=== PATIENT | male | born 1935 | race Caucasian/White ===

== ENCOUNTER 2016-11-01 13:18 | Emergency (ER) | payer MEDICARE, BC ==
[2016-11-01] MEDS ORDERED: SODIUM CHLORIDE 0.9% 1,000 ML IV STA (13:51)
[2016-11-01] MEDS ORDERED: MORPHINE SULFATE 4 MG/ML SYRINGE IVP STA (13:51)
[2016-11-01] MEDS ORDERED: SODIUM CHLORIDE 0.9% 500 ML IV STA (13:51)
[2016-11-01] MEDS ORDERED: IPRATROPIUM 0.5 MG/2.5 ML NEBU INHALATION STA (13:51)
[2016-11-01] MEDS ORDERED: ALBUTEROL NEBULIZED 2.5 MG/3 ML INHALATION STA (13:51)
[2016-11-01] MEDS ORDERED: LEVOFLOXACIN 750MG-D5W PMX 750 MG in DEXTROSE/WATER 1 150ML.BAG IVPB STA (13:51)
--- NOTE | 2016-11-01 13:58 | ED ---
General Adult HPI - General Chief complaint: Upper Respiratory Infection Stated complaint: cough/congestion Time Seen by Provider: 11/01/16 13:27 Source: patient, RN notes reviewed, old records reviewed Mode of arrival: ambulatory Limitations: no limitations - History of Present Illness Initial comments: This is an 81-year-old male ER for evaluation of cough and congestion runny nose , coughing up mucus. 3-4 days, episodic fevers. No chest pain. Patient has extensive medical history including diabetes. No recent hospitalizations no travel history no sick contacts. - Related Data Home Medications Medication Instructions Recorded Confirmed Ascorbic Acid [Vitamin C] 1,000 mg PO DAILY 04/03/15 11/01/16 Aspirin EC [Ecotrin] 81 mg PO DAILY 04/03/15 11/01/16 Atorvastatin [Lipitor] 10 mg PO HS 04/03/15 11/01/16 Atropine Ophth Soln 1% 5Ml [Isopto 2 drops RIGHT EYE DAILY 04/03/15 11/01/16 Atropine 1% 5Ml] Fenofibrate Nanocrystallized 145 mg PO DAILY 04/03/15 11/01/16 [Tricor] Ferrous Sulfate [Feosol] 325 mg PO DAILY 04/03/15 11/01/16 Fish Oil/Dha/Epa [Fish Oil 1,200 1 cap PO DAILY 04/03/15 11/01/16 mg Fish Oil] Lisinopril-Hctz 20-25 mg 1 tab PO DAILY 04/03/15 11/01/16 [Zestoretic 20-25] Metoprolol Tartrate [Lopressor] 50 mg PO DAILY 04/03/15 11/01/16 Potassium Chloride ER [K-Dur 10] 10 meq PO DAILY 04/03/15 11/01/16 Propylene Glycol/Peg 400/Pf 1 drop BOTH EYES DAILY PRN 04/03/15 11/01/16 [Systane 0.3-0.4% Eye Drops] Temazepam [Restoril] 15 mg PO HS PRN 04/03/15 11/01/16 metFORMIN HCL [metFORMIN HCL] 500 mg PO DAILY 04/03/15 11/01/16 prednisoLONE ACETATE 1% OPHTH 1 drops RIGHT EYE DAILY 04/03/15 11/01/16 [Pred Forte 1%] sitaGLIPtin [Januvia] 50 mg PO DAILY 04/03/15 11/01/16 Cyanocobalamin (Vitamin B-12) 2,000 mcg PO DAILY 11/01/16 11/01/16 [Vitamin B-12] Docusate [Colace] 100 mg PO DAILY PRN 11/01/16 11/01/16 Magnesium Chelated Zinc 1 tab PO DAILY 11/01/16 11/01/16 Omeprazole [PriLOSEC] 20 mg PO DAILY PRN 11/01/16 11/01/16 Allergies Allergy/AdvReac Type Severity Reaction Status Date / Time fluticasone [From Flonase] AdvReac FAINTING Verified 11/01/16 13:54 Review of Systems ROS Statement: Those systems with pertinent positive or pertinent negative responses have been documented in the HPI. ROS Other: All systems not noted in ROS Statement are negative. Past Medical History Past Medical History: Coronary Artery Disease (CAD), Hyperlipidemia, Hypertension Additional Past Medical History / Comment(s): colon ca, cataracts History of Any Multi-Drug Resistant Organisms: None Reported Past Surgical History: Bowel Resection, Coronary Bypass/CABG Additional Past Surgical History / Comment(s): colon ca Past Psychological History: No Psychological Hx Reported Smoking Status: Never smoker Past Alcohol Use History: None Reported Past Drug Use History: None Reported General Exam Limitations: no limitations General appearance: alert, in no apparent distress Head exam: Present: atraumatic, normocephalic, normal inspection Eye exam: Present: normal appearance, PERRL, EOMI. Absent: scleral icterus, conjunctival injection, periorbital swelling ENT exam: Present: normal exam, mucous membranes moist Neck exam: Present: normal inspection. Absent: tenderness, meningismus, lymphadenopathy Respiratory exam: Present: normal lung sounds bilaterally. Absent: respiratory distress, wheezes, rales, rhonchi, stridor Cardiovascular Exam: Present: regular rate, normal rhythm, normal heart sounds. Absent: systolic murmur, diastolic murmur, rubs, gallop, clicks GI/Abdominal exam: Present: soft, normal bowel sounds. Absent: distended, tenderness, guarding, rebound, rigid Extremities exam: Present: normal inspection, full ROM, normal capillary refill. Absent: tenderness, pedal edema, joint swelling, calf tenderness Back exam: Present: normal inspection Neurological exam: Present: alert, oriented X3, CN II-XII intact Psychiatric exam: Present: normal affect, normal mood Skin exam: Present: warm, dry, intact, normal color. Absent: rash Course Vital Signs 11/01/16 11/01/16 11/01/16 13:20 14:16 14:45 Temperature 97.7 F Pulse Rate 64 70 75 Respiratory 18 20 Rate Blood Pressure 152/84 156/85 O2 Sat by Pulse 95 94 L Oximetry - Reevaluation(s) Reevaluation #1: 11/01/16 15:19 No respiratory distress, patient states he is feeling much better. Treatment, would like to go home EKG Findings - EKG Comments: EKG Findings:: EKG shows normal sinus rhythm rate of 63, AL 256 QRS 108, QTC 421 Medical Decision Making - Medical Decision Making 81 LDF for evaluation of cough, consistent cough for 2 days episodic fever. Patient with positive bronchitis to pneumonia. Patient be treated appropriately for walking pneumonia, discharged - Lab Data Result diagrams: 11/01/16 14:20 11/01/16 14:20 Lab Results 11/01/16 11/01/16 11/01/16 Range/Units 14:20 14:20 14:20 WBC 7.5 (3.8-10.6) k/uL RBC 4.16 L (4.30-5.90) m/uL Hgb 13.3 (13.0-17.5) gm/dL Hct 40.8 (39.0-53.0) % MCV 98.1 (80.0-100.0) fL MCH 32.0 (25.0-35.0) pg MCHC 32.6 (31.0-37.0) g/dL RDW 14.3 (11.5-15.5) % Plt Count 202 (150-450) k/uL Neutrophils % 71 % Lymphocytes % 13 % Monocytes % 7 % Eosinophils % 8 % Basophils % 1 % Neutrophils # 5.4 (1.3-7.7) k/uL Lymphocytes # 0.9 L (1.0-4.8) k/uL Monocytes # 0.5 (0-1.0) k/uL Eosinophils # 0.6 (0-0.7) k/uL Basophils # 0.1 (0-0.2) k/uL PT (9.0-12.0) sec INR (<1.1) APTT (22.0-30.0) sec Sodium 143 (137-145) mmol/L Potassium 4.6 (3.5-5.1) mmol/L Chloride 107 (98-107) mmol/L Carbon Dioxide 27 (22-30) mmol/L Anion Gap 9 mmol/L BUN 16 (9-20) mg/dL Creatinine 1.15 (0.66-1.25) mg/dL Est GFR (MDRD) Af Amer >60 (>60 ml/min/1.73 sqM) Est GFR (MDRD) Non-Af >60 (>60 ml/min/1.73 sqM) Glucose 94 (74-99) mg/dL Calcium 9.8 (8.4-10.2) mg/dL Magnesium 1.7 (1.6-2.3) mg/dL Total Bilirubin 0.6 (0.2-1.3) mg/dL AST 25 (17-59) U/L ALT 30 (21-72) U/L Alkaline Phosphatase 69 (38-126) U/L NT-Pro-B Natriuret Pep 151 pg/mL Total Protein 7.0 (6.3-8.2) g/dL Albumin 4.0 (3.5-5.0) g/dL 11/01/16 Range/Units 14:20 WBC (3.8-10.6) k/uL RBC (4.30-5.90) m/uL Hgb (13.0-17.5) gm/dL Hct (39.0-53.0) % MCV (80.0-100.0) fL MCH (25.0-35.0) pg MCHC (31.0-37.0) g/dL RDW (11.5-15.5) % Plt Count (150-450) k/uL Neutrophils % % Lymphocytes % % Monocytes % % Eosinophils % % Basophils % % Neutrophils # (1.3-7.7) k/uL Lymphocytes # (1.0-4.8) k/uL Monocytes # (0-1.0) k/uL Eosinophils # (0-0.7) k/uL Basophils # (0-0.2) k/uL PT 10.3 (9.0-12.0) sec INR 1.0 (<1.1) APTT 22.9 (22.0-30.0) sec Sodium (137-145) mmol/L Potassium (3.5-5.1) mmol/L Chloride (98-107) mmol/L Carbon Dioxide (22-30) mmol/L Anion Gap mmol/L BUN (9-20) mg/dL Creatinine (0.66-1.25) mg/dL Est GFR (MDRD) Af Amer (>60 ml/min/1.73 sqM) Est GFR (MDRD) Non-Af (>60 ml/min/1.73 sqM) Glucose (74-99) mg/dL Calcium (8.4-10.2) mg/dL Magnesium (1.6-2.3) mg/dL Total Bilirubin (0.2-1.3) mg/dL AST (17-59) U/L ALT (21-72) U/L Alkaline Phosphatase (38-126) U/L NT-Pro-B Natriuret Pep pg/mL Total Protein (6.3-8.2) g/dL Albumin (3.5-5.0) g/dL - Radiology Data Radiology results: report reviewed (Chest x-ray shows no acute pneumonia), image reviewed Disposition Clinical Impression: Upper respiratory infection, Bronchitis, Acute bronchitis Disposition: HOME SELF-CARE Condition: Good Instructions: Acute Bronchitis (ED) Referrals: Akbar Grace MD [Primary Care Provider] - 1-2 days
[2016-11-01 14:41] LABS: Basophils # (A) 0.1 k/uL (0-0.2); Basophils % (A) 1 %; CH 32.3; CHCM 33.1; Eosinophils # (A) 0.6 k/uL (0-0.7); Eosinophils % (A) 8 %; HCT 40.8 % (39.0-53.0); HDW 2.77; HGB 13.3 gm/dL (13.0-17.5); Luc # (Auto) 0.12; Luc % (Auto) 2; Lymphocytes # (A) 0.9 k/uL (1.0-4.8); Lymphocytes % (A) 13 %; MCHC 32.6 g/dL (31.0-37.0); MCV 98.1 fL (80.0-100.0); Monocytes # (A) 0.5 k/uL (0-1.0); Monocytes % (A) 7 %; Neutrophils # (A) 5.4 k/uL (1.3-7.7); Neutrophils % (A) 71 %; RBC 4.16 m/uL (4.30-5.90); RDW 14.3 % (11.5-15.5); WBC 7.5 k/uL (3.8-10.6)
[2016-11-01 14:53] LABS: ALT 30 U/L (21-72); AST 25 U/L (17-59); Alkaline Phosphatase 69 U/L (38-126); Anion Gap 9 mmol/L; Blood Urea Nitrogen 16 mg/dL (9-20); Calcium 9.8 mg/dL (8.4-10.2); Carbon Dioxide 27 mmol/L (22-30); Chloride 107 mmol/L (98-107); Glucose 94 mg/dL (74-99); Magnesium 1.7 mg/dL (1.6-2.3); Non-African American GFR(MDRD) >60 (>60 ml/min/1.73 sqM); Potassium 4.6 mmol/L (3.5-5.1); Sodium 143 mmol/L (137-145); Total Bilirubin 0.6 mg/dL (0.2-1.3)
[2016-11-01 14:55] LABS: Partial Thromboplastin Time 22.9 sec (22.0-30.0); Prothrombin Time 10.3 sec (9.0-12.0)
--- NOTE | 2016-11-01 14:59 | XR ---
EXAMINATION TYPE: XR chest 2V DATE OF EXAM: 11/01/2016 2:38 PM COMPARISON: 04/03/2015 HISTORY: Productive cough TECHNIQUE: Frontal and lateral views of the chest are obtained. FINDINGS: There is no heart failure nor confluent pneumonic infiltrate. Thoracic aorta is atheromato us. There is slight coarsening of interstitial markings. There is no pleural effusion. There are ster nal wires. There are chest leads. Bony thorax is intact. IMPRESSION: Minimal pulmonary fibrotic changes. No acute lung disease. No change.
[2016-11-01 15:05] LABS: Creatine Kinase 82 U/L (55-170)
[2016-11-01 15:20] LABS: Creatine Kinase MB 1.3 ng/mL (0.0-2.4); Troponin I <0.012 ng/mL (0.000-0.034)
[2016-11-01 16:14] VITALS: BP 142/67; PULSE 60; RESP 18; TEMP 97.1
== END 2016-11-01 16:13 | disposition home or self-care (01) ==
LOC: EC 13:18
DX: J06.9 Acute upper respiratory infection, unspecified (principal); J20.9 Acute bronchitis, unspecified; I10 Essential (primary) hypertension; E78.5 Hyperlipidemia, unspecified; Z85.038 Personal history of other malignant neoplasm of large intestine; Z88.8 Allergy status to other drugs, medicaments and biological substances; Z79.82 Long term (current) use of aspirin; Z79.899 Other long term (current) drug therapy
CPT/HCPCS: 99284; 96365; 36415; 94644; 93005; 83880; 80053; 82550; 82553; 83735; 84484; 85025; 85610; 85730; 87040; 71020; J1956

== ENCOUNTER 2018-01-29 07:58 | Observation (INO) | payer MEDICARE, BC ==
[2018-01-29] MEDS ORDERED: ASPIRIN 81 MG PO STA (08:12)
[2018-01-29] MEDS ORDERED: NITROGLYCERIN OINT 1 INCH/GM PACKET TOPICAL STA (08:12)
--- NOTE | 2018-01-29 08:18 | ED ---
General Adult HPI - General Chief complaint: Chest Pain Stated complaint: chest pain Time Seen by Provider: 01/29/18 08:00 Source: patient, RN notes reviewed Mode of arrival: wheelchair Limitations: no limitations - History of Present Illness Initial comments: This is an 82-year-old male who has a past medical history significant for bypass surgery. Patient also has diabetes hypertension high cholesterol. Patient states she's been having intermittent chest pain over the last 3 days in the center of his chest. Patient states he thought was heartburn but since it hasn't gone away he decided come to the hospital. Patient states the pain lasted between 10 and 20 minutes when it comes. Patient states he has been more short of breath lately but he has not associated with the chest pain. Patient denies any diaphoresis. Patient denies any radiation of the pain. Patient denies any nausea or vomiting. Patient denies any recent fever chills or cough. Patient denies headache patient denies numbness weakness. Patient denies any lightheadedness dizziness or near syncopal episode. Patient denies any recent injury or trauma. Patient denies any back pain. The legs or calf tenderness. Currently patient is chest pain-free. - Related Data Home Medications Medication Instructions Recorded Confirmed Ascorbic Acid [Vitamin C] 1,000 mg PO DAILY 04/03/15 05/23/17 Aspirin EC [Ecotrin] 81 mg PO DAILY 04/03/15 05/23/17 Atorvastatin [Lipitor] 10 mg PO HS 04/03/15 05/23/17 Atropine Ophth Soln 1% 5Ml [Isopto 2 drops RIGHT EYE DAILY 04/03/15 05/23/17 Atropine 1% 5Ml] Fenofibrate Nanocrystallized 145 mg PO DAILY 04/03/15 05/23/17 [Tricor] Ferrous Sulfate [Feosol] 325 mg PO Q48H 04/03/15 05/23/17 Fish Oil/Dha/Epa [Fish Oil 1,200 1 cap PO DAILY 04/03/15 05/23/17 mg Fish Oil] Lisinopril-Hctz 20-25 mg 1 tab PO DAILY 04/03/15 05/23/17 [Zestoretic 20-25] Metoprolol Tartrate [Lopressor] 50 mg PO DAILY 04/03/15 05/23/17 Potassium Chloride ER [K-Dur 10] 10 meq PO DAILY 04/03/15 05/23/17 Propylene Glycol/Peg 400/Pf 1 drop BOTH EYES DAILY PRN 04/03/15 05/23/17 [Systane 0.3-0.4% Eye Drops] Temazepam [Restoril] 15 mg PO HS PRN 04/03/15 05/23/17 metFORMIN HCL 500 mg PO AC-SUPPER 04/03/15 05/23/17 prednisoLONE ACETATE 1% OPHTH 1 drops RIGHT EYE DAILY 04/03/15 05/23/17 [Pred Forte 1%] sitaGLIPtin [Januvia] 50 mg PO DAILY 04/03/15 05/23/17 Docusate [Colace] 100 mg PO DAILY PRN 11/01/16 05/23/17 Magnesium Chelated Zinc 1 tab PO DAILY 11/01/16 05/23/17 Omeprazole [PriLOSEC] 20 mg PO DAILY PRN 11/01/16 05/23/17 Cyanocobalamin (Vitamin B-12) 2,500 mcg PO DAILY 05/23/17 05/23/17 [Vitamin B12] Allergies Allergy/AdvReac Type Severity Reaction Status Date / Time fluticasone [From Flonase] AdvReac FAINTING Verified 01/29/18 08:03 Review of Systems ROS Statement: Those systems with pertinent positive or pertinent negative responses have been documented in the HPI. ROS Other: All systems not noted in ROS Statement are negative. Past Medical History Past Medical History: Coronary Artery Disease (CAD), Hyperlipidemia, Hypertension Additional Past Medical History / Comment(s): colon ca, cataracts History of Any Multi-Drug Resistant Organisms: None Reported Past Surgical History: Bowel Resection, Coronary Bypass/CABG Additional Past Surgical History / Comment(s): colon ca Past Psychological History: No Psychological Hx Reported Smoking Status: Never smoker Past Alcohol Use History: None Reported Past Drug Use History: None Reported General Exam - General Exam Comments Initial Comments: GENERAL: Patient is well-developed and well-nourished. Patient is nontoxic and well- hydrated and is in no acute distress. ENT: Neck is soft and supple. No significant lymphadenopathy is noted. Oropharynx is clear. Moist mucous membranes. Neck has full range of motion without eliciting any pain. EYES: The sclera were anicteric and conjunctiva were pink and moist. Extraocular movements were intact and pupils were equal round and reactive to light. Eyelids were unremarkable. PULMONARY: Unlabored respirations. Good breath sounds bilaterally. No audible rales rhonchi or wheezing was noted. CARDIOVASCULAR: There is a regular rate and rhythm without any murmurs gallops or rubs. ABDOMEN: Soft and nontender with normal bowel sounds. No palpable organomegaly was noted. There is no palpable pulsatile mass. SKIN: Skin is clear with no lesions or rashes and otherwise unremarkable. NEUROLOGIC: Patient is alert and oriented x3. Cranial nerves II through XII are grossly intact. Motor and sensory are also intact. Normal speech, volume and content. Symmetrical smile. MUSCULOSKELETAL: Normal extremities with adequate strength and full range of motion. No lower extremity swelling or edema. No calf tenderness. LYMPHATICS: No significant lymphadenopathy is noted PSYCHIATRIC: Normal psychiatric evaluation. Normal interpersonal interactions appears functionally intact in deals appropriately with others. No signs of depression. No signs of anxiety. Limitations: no limitations Course Vital Signs 01/29/18 01/29/18 08:01 09:10 Temperature 98.1 F Pulse Rate 78 67 Respiratory 18 16 Rate Blood Pressure 177/83 168/79 O2 Sat by Pulse 96 96 Oximetry Medical Decision Making - Medical Decision Making EKG shows normal sinus rhythm at 74 bpm OR interval 190 QRS is 96 QT interval 36 QTC is 428. Patient's EKG shows no ST segment elevation or depression or T wave abnormalities are noted. Chest x-ray shows no acute abnormality. I started the patient on heparin because of his history and his past history. I spoke with Dr. Merlos he agreed to admit the patient admitted the patient wrote admitting orders I continued heparin and aspirin and Nitropaste on the floor. I consult to cardiology. - Lab Data Result diagrams: 01/29/18 08:14 01/29/18 08:14 Lab Results 01/29/18 01/29/18 01/29/18 Range/Units 08:14 08:14 08:14 WBC 7.7 (3.8-10.6) k/uL RBC 4.11 L (4.30-5.90) m/uL Hgb 12.9 L (13.0-17.5) gm/dL Hct 39.1 (39.0-53.0) % MCV 95.2 (80.0-100.0) fL MCH 31.3 (25.0-35.0) pg MCHC 32.9 (31.0-37.0) g/dL RDW 15.0 (11.5-15.5) % Plt Count 217 (150-450) k/uL Neutrophils % 71 % Lymphocytes % 11 % Monocytes % 8 % Eosinophils % 6 % Basophils % 1 % Neutrophils # 5.5 (1.3-7.7) k/uL Lymphocytes # 0.9 L (1.0-4.8) k/uL Monocytes # 0.6 (0-1.0) k/uL Eosinophils # 0.5 (0-0.7) k/uL Basophils # 0.0 (0-0.2) k/uL PT (9.0-12.0) sec INR (<1.2) APTT (22.0-30.0) sec Sodium 141 (137-145) mmol/L Potassium 4.8 (3.5-5.1) mmol/L Chloride 108 H (98-107) mmol/L Carbon Dioxide 22 (22-30) mmol/L Anion Gap 11 mmol/L BUN 31 H (9-20) mg/dL Creatinine 1.53 H (0.66-1.25) mg/dL Est GFR (CKD-EPI)AfAm 48 (>60 ml/min/1.73 sqM) Est GFR (CKD-EPI)NonAf 42 (>60 ml/min/1.73 sqM) Glucose 129 H (74-99) mg/dL Calcium 9.4 (8.4-10.2) mg/dL Magnesium 1.7 (1.6-2.3) mg/dL Total Bilirubin 0.3 (0.2-1.3) mg/dL AST 24 (17-59) U/L ALT 31 (21-72) U/L Alkaline Phosphatase 91 (38-126) U/L Total Creatine Kinase 82 (55-170) U/L CK-MB (CK-2) 1.0 (0.0-2.4) ng/mL CK-MB (CK-2) Rel Index 1.2 Troponin I <0.012 (0.000-0.034) ng/mL Total Protein 6.9 (6.3-8.2) g/dL Albumin 4.0 (3.5-5.0) g/dL 01/29/18 Range/Units 08:14 WBC (3.8-10.6) k/uL RBC (4.30-5.90) m/uL Hgb (13.0-17.5) gm/dL Hct (39.0-53.0) % MCV (80.0-100.0) fL MCH (25.0-35.0) pg MCHC (31.0-37.0) g/dL RDW (11.5-15.5) % Plt Count (150-450) k/uL Neutrophils % % Lymphocytes % % Monocytes % % Eosinophils % % Basophils % % Neutrophils # (1.3-7.7) k/uL Lymphocytes # (1.0-4.8) k/uL Monocytes # (0-1.0) k/uL Eosinophils # (0-0.7) k/uL Basophils # (0-0.2) k/uL PT 9.7 (9.0-12.0) sec INR 1.0 (<1.2) APTT 23.2 (22.0-30.0) sec Sodium (137-145) mmol/L Potassium (3.5-5.1) mmol/L Chloride (98-107) mmol/L Carbon Dioxide (22-30) mmol/L Anion Gap mmol/L BUN (9-20) mg/dL Creatinine (0.66-1.25) mg/dL Est GFR (CKD-EPI)AfAm (>60 ml/min/1.73 sqM) Est GFR (CKD-EPI)NonAf (>60 ml/min/1.73 sqM) Glucose (74-99) mg/dL Calcium (8.4-10.2) mg/dL Magnesium (1.6-2.3) mg/dL Total Bilirubin (0.2-1.3) mg/dL AST (17-59) U/L ALT (21-72) U/L Alkaline Phosphatase (38-126) U/L Total Creatine Kinase (55-170) U/L CK-MB (CK-2) (0.0-2.4) ng/mL CK-MB (CK-2) Rel Index Troponin I (0.000-0.034) ng/mL Total Protein (6.3-8.2) g/dL Albumin (3.5-5.0) g/dL Critical Care Time Critical Care Time: Yes Total Critical Care Time: 35 Disposition Clinical Impression: Unstable angina pectoris Disposition: ADMITTED IP TO THIS HOSP Referrals: Tyson Rascon DO [Primary Care Provider] - 1-2 days Time of Disposition: 09:55
[2018-01-29 08:25] LABS: Basophils % (A) 1 %; Eosinophils # (A) 0.5 k/uL (0-0.7); Eosinophils % (A) 6 %; HCT 39.1 % (39.0-53.0); HGB 12.9 gm/dL (13.0-17.5); Lymphocytes # (A) 0.9 k/uL (1.0-4.8); Lymphocytes % (A) 11 %; MCH 31.3 pg (25.0-35.0); MCHC 32.9 g/dL (31.0-37.0); MCV 95.2 fL (80.0-100.0); Mean Platelet Volume 6.9; Monocytes # (A) 0.6 k/uL (0-1.0); Monocytes % (A) 8 %; Neutrophils # (A) 5.5 k/uL (1.3-7.7); Neutrophils % (A) 71 %; Platelet Count 217 k/uL (150-450); RBC 4.11 m/uL (4.30-5.90); WBC 7.7 k/uL (3.8-10.6)
[2018-01-29 08:35] LABS: Partial Thromboplastin Time 23.2 sec (22.0-30.0); Prothrombin Time 9.7 sec (9.0-12.0)
[2018-01-29 08:38] LABS: Calcium 9.4 mg/dL (8.4-10.2); Magnesium 1.7 mg/dL (1.6-2.3); Potassium 4.8 mmol/L (3.5-5.1); Total Bilirubin 0.3 mg/dL (0.2-1.3); Total Protein 6.9 g/dL (6.3-8.2)
[2018-01-29 09:02] LABS: Creatine Kinase 82 U/L (55-170)
[2018-01-29 09:15] LABS: Troponin I <0.012 ng/mL (0.000-0.034)
--- NOTE | 2018-01-29 09:29 | XR ---
EXAMINATION TYPE: XR chest 2V DATE OF EXAM: 01/29/2018 COMPARISON: 05/23/2017 HISTORY: 82-year-old male with chest pain TECHNIQUE: Frontal and lateral views FINDINGS: Heart upper limits of normal in size. Mild elongation thoracic aorta is unchanged. Median sternotomy wires are present with post-CABG clips in the mediastinum. Chronic pleural-based thickening lateral r ight hemithorax probably scarring. Diffuse interstitial prominence is unchanged. Hazy density at the cardiac apex compatible with epicardial fat pad. Increased focal bibasilar areas of opacity with a so mewhat strandy appearance. No significant pleural effusion seen on the lateral view. IMPRESSION: Chronic changes but with increased focal bibasilar areas of atelectasis or infiltrates with the forme r being favored. Clinically correlate.
[2018-01-29] MEDS ORDERED: HEPARIN SODIUM,PORCINE 5,000 UNIT/ML 1 ML VIAL IV ONE (09:54)
[2018-01-29] MEDS ORDERED: NITROGLYCERIN SL TABS 0.4 MG TAB SUBLINGUAL PRN (09:55)
[2018-01-29] MEDS ORDERED: HEPARIN SOD,PORK IN 0.45% NACL 25,000 UNIT in 0.45% NACL 1 500ML.BAG IV SCH (10:00)
[2018-01-29 12:24] VITALS: BMI 30.7
[2018-01-29 12:26] LABS: Glucose,Whole Blood 117 mg/dL (75-99)
[2018-01-29] MEDS ORDERED: DOCUSATE 100 MG CAP PO PRN (14:16)
[2018-01-29] MEDS ORDERED: ARTIFICIAL TEARS-HYPROMELLOSE DROPS 15 ML BTL BOTH EYES PRN (14:16)
[2018-01-29] MEDS ORDERED: NON-FORMULARY DRUG (Omeprazole 20 MG) PO PRN (14:16)
[2018-01-29] MEDS ORDERED: TEMAZEPAM 15 MG CAP PO PRN (14:16)
[2018-01-29] MEDS ORDERED: ALPRAZolam 0.25 MG TAB PO PRN (14:18)
[2018-01-29] MEDS ORDERED: ACETAMINOPHEN TAB 500 MG TAB PO PRN (14:18)
[2018-01-29] MEDS ORDERED: FERROUS SULFATE 325 MG TAB PO SCH (14:30)
[2018-01-29 15:45] LABS: Creatine Kinase 64 U/L (55-170)
[2018-01-29 15:58] LABS: Troponin I <0.012 ng/mL (0.000-0.034)
[2018-01-29] MEDS: NITROGLYCERIN OINT 1 INCH/GM PACKET TOPICAL SCH ×2 (16:29→17:59)
[2018-01-29] MEDS ORDERED: HEPARIN SODIUM,PORCINE 5,000 UNIT/ML 1 ML VIAL IV PRN (16:41)
--- NOTE | 2018-01-29 17:21 | HP ---
HISTORY AND PHYSICAL DATE OF SERVICE: 01/29/2018 CHIEF COMPLAINT: Chest pain. HISTORY OF PRESENT ILLNESS: I am covering for Dr. Rascon. This 82-year-old gentleman with a past medical history of multiple medical problems, including CAD, diabetes mellitus, hypertension, hyperlipidemia, history of colon cancer, being followed by Dr. Rascon in the outpatient setting, was complaining of intermittent chest pain for the last 3 days. The patient also described the pain as heartburn felt in the midepigastrium and the last episodes lasted between 10-20 minutes and because of some shortness of breath and other associated symptoms, patient came to [facility], admitted for further evaluation and treatment. There is no history of any shortness of breath. No history of radiation of pain elsewhere. The initial EKG showed no acute abnormality. The troponins were negative and cardiology evaluation has been sought. The patient is started on protocol. There is no history of any fever, rigors. No history of headache, loss of consciousness, seizures. PAST MEDICAL HISTORY: History of CAD, CABG, history of diabetes mellitus type 2, hypertension, hyperlipidemia, history of colon cancer. MEDICATIONS PRIOR TO ADMISSION: Include home medications are: 1. Januvia 50 mg p.o. daily. 2. Prednisone 1 drop right eye daily. 3. Metformin 500 mg a.c. supper. 4. Norvasc 5 mg daily. 5. Restoril 50 mg q.h.s. p.r.n. 6. Propylene glycol 1 drop both eyes. 7. K-Dur 10 mEq p.o. daily. 8. Prilosec 20 mg daily. 9. Lopressor 50 mg p.o. daily. 10.Magnesium 1 tablet p.o. daily. 11.Zestoretic 10/25 p.o. daily. 12.Fish oil 360 mg p.o. daily. 13.Iron sulfate 320 mg p.o. q.48 hours. 14.Tricor 145 mg p.o. daily. 15.Colace 100 mg daily p.r.n. 16.Vitamin B12 2.5 mcg p.o. daily. 17.Isopto 2 drops daily. 18.Lipitor 10 mg q.h.s. 19.Ecotrin 81 mg daily. 20.Vitamin C 1000 mg p.o. daily. ALLERGIES: FLONASE. FAMILY HISTORY: No history of heart disease, strokes in the family. SOCIAL HISTORY: No history of smoking. No history of alcohol intake. REVIEW OF SYSTEMS: ENT: No diminished hearing, diminished vision. CARDIOVASCULAR: No angina, palpitations. RESPIRATORY: No cough or hemoptysis. GI: No nausea or vomiting. : No dysuria. NERVOUS: No numbness or weakness. ALLERGY/IMMUNOLOGY: No asthma or hay fever. MUSCULOSKELETAL: As mentioned earlier. HEMATOLOGY/ONCOLOGY: No history of anemia. ENDOCRINE: No history of hypothyroidism. CONSTITUTIONAL: As mentioned earlier. DERMATOLOGY: Negative. RHEUMATOLOGY: Negative. PSYCHIATRY: As mentioned earlier. PHYSICAL EXAMINATION: Alert and oriented x3. Pulse is 61, blood pressure 162/81, respirations 16, temperature 97.4, pulse ox 94% on room air. HEENT: Conjunctivae normal. Oral mucosa moist. NECK: No jugular venous distention. No carotid bruits. No lymph node enlargement. CARDIOVASCULAR: S1, S2 muffled. RESPIRATORY: Breath sounds diminished in the bases. A few scattered rhonchi and crackles. ABDOMEN: Soft, nontender. No mass palpable. LEGS: No edema. No swelling. NERVOUS SYSTEM: Higher functions as mentioned earlier. Moves all 4 limbs. No focal motor or sensory deficits. LYMPHATIC: No lymphadenopathy in neck or axillae. SKIN: No ulcer, rash or bleeding. LABS: WBC 1.6, hemoglobin is 12.9 and creatinine is 1.53. ASSESSMENT: 1. Chest pain, possible unstable angina. 2. Increased creatinine with possibly chronic kidney disease stage 3. 3. Coronary artery disease, coronary artery bypass graft. 4. Hypertension. 5. Hyperlipidemia. 6. Diabetes mellitus type 2. 7. Colon cancer. 8. History of bowel resection. RECOMMENDATION AND DISCUSSION: In this 82-year-old gentleman who presented with multiple complex medical issues , we will monitor the patient closely. Symptomatic treatment and Cardiology consultation. Otherwise, we will continue to monitor. The EKG showed diffuse ST-T changes. Will rule out myocardial infarction. Repeat labs will be ordered. Guarded prognosis because of multiple complex medical issues. Further recommendations to follow. A copy of this dictation will be forwarded to Dr. Rascon, who is the primary physician. MMODL / IJN: [id number] / MTDD
[2018-01-29] MEDS ORDERED: metFORMIN 500 MG TAB PO SCH (17:30)
[2018-01-29 17:42] LABS: Glucose,Whole Blood 107 mg/dL (75-99)
[2018-01-29] MEDS: INSULIN ASPART 100 UNIT/ML 1 ML 10 ML VIAL SQ SCH ×2 (17:51→21:06)
[2018-01-29 19:24] VITALS: RESP 18
[2018-01-29] MEDS ORDERED: ATORVASTATIN 10 MG TAB PO SCH (21:00)
[2018-01-29] MEDS ORDERED: MELATONIN 3 MG TABLET PO SCH (21:00)
[2018-01-29 21:01] LABS: Glucose,Whole Blood 119 mg/dL (75-99)
[2018-01-29 21:59] LABS: Creatine Kinase 62 U/L (55-170)
[2018-01-29 22:12] LABS: Troponin I <0.012 ng/mL (0.000-0.034)
[2018-01-29 23:05] LABS: Hemoglobin A1C 6.6 % (4.0-6.0)
[2018-01-30] MEDS: NITROGLYCERIN OINT 1 INCH/GM PACKET TOPICAL SCH ×3 (00:26→12:32)
[2018-01-30 07:13] LABS: Glucose,Whole Blood 132 mg/dL (75-99)
[2018-01-30] MEDS ORDERED: PANTOPRAZOLE 40 MG TABLET PO SCH (07:30)
[2018-01-30 07:36] LABS: Basophils % (A) 1 %; Eosinophils # (A) 0.5 k/uL (0-0.7); Eosinophils % (A) 8 %; HCT 37.1 % (39.0-53.0); HGB 12.1 gm/dL (13.0-17.5); Lymphocytes % (A) 16 %; MCH 31.2 pg (25.0-35.0); MCHC 32.6 g/dL (31.0-37.0); MCV 95.7 fL (80.0-100.0); Mean Platelet Volume 6.8; Monocytes # (A) 0.4 k/uL (0-1.0); Monocytes % (A) 7 %; Neutrophils # (A) 3.9 k/uL (1.3-7.7); Neutrophils % (A) 66 %; Platelet Count 171 k/uL (150-450); RBC 3.88 m/uL (4.30-5.90); WBC 5.9 k/uL (3.8-10.6)
[2018-01-30 08:12] LABS: Calcium 9.1 mg/dL (8.4-10.2); Potassium 5.1 mmol/L (3.5-5.1)
[2018-01-30] MEDS ORDERED: ASCORBIC ACID 500 MG TAB PO SCH (09:00)
[2018-01-30] MEDS ORDERED: ASPIRIN 325 MG TAB PO SCH (09:00)
[2018-01-30] MEDS ORDERED: METOPROLOL TARTRATE 50 MG TAB PO SCH (09:00)
[2018-01-30] MEDS ORDERED: ATROPINE OPHTH SOLN 1% 5ML BTL RIGHT EYE SCH (09:00)
[2018-01-30] MEDS ORDERED: prednisoLONE ACETATE 1% OPHTH DROPS 5 ML BTL RIGHT EYE SCH (09:00)
[2018-01-30] MEDS ORDERED: ASPIRIN 81 MG PO SCH (09:00)
[2018-01-30] MEDS ORDERED: amLODIPine 5 MG TAB PO SCH (09:00)
[2018-01-30] MEDS ORDERED: [UNRECOGNIZED DRUG - OTHER] PO SCH (09:00)
[2018-01-30] MEDS ORDERED: POTASSIUM CHLORIDE ER 10 MEQ TAB.ER.PRT PO SCH (09:00)
[2018-01-30] MEDS ORDERED: LINAGLIPTIN 5 MG TABLET PO SCH (09:00)
[2018-01-30] MEDS ORDERED: FISH OIL 360 MG PO SCH (09:00)
[2018-01-30] MEDS ORDERED: FENOFIBRATE 160 MG TAB PO SCH (09:00)
[2018-01-30] MEDS ORDERED: LISINOPRIL-HCTZ 20-25 MG 1 EACH TAB PO SCH (09:00)
[2018-01-30] MEDS: INSULIN ASPART 100 UNIT/ML 1 ML 10 ML VIAL SQ SCH ×2 (09:44→12:32)
[2018-01-30] MEDS ORDERED: CYANOCOBALAMIN 500 MCG TAB PO SCH (12:00)
[2018-01-30 12:13] LABS: Glucose,Whole Blood 175 mg/dL (75-99)
[2018-01-30 16:02] VITALS: BP 122/82; PULSE 52; TEMP 97.8
--- NOTE | 2018-01-30 22:22 | CONS ---
CONSULTATION Mr. Hernandez is an 82-year-old gentleman who is admitted with a complaint of chest discomfort. Patient gives a history that has been having intermittent discomfort in the epigastric and substernal area, which comes and goes. They were thinking that it was like heartburn. The pain did not radiate to the arm, neck or jaw. He did not have any nausea or vomiting. The patient denies any exertional chest discomfort. At present, patient is feeling well. The patient wants to continue medical treatment and does not want any further investigations either at present. The patient has a previous history of coronary artery bypass surgery. [facility]'s is in the [facility]. MEDICATIONS: Patient's home medications include Lipitor, Ecotrin, vitamin C, Lopressor, Januvia, Colace, Prilosec, and B12. PAST MEDICAL HISTORY: Includes hypertension, hyperlipidemia, history of colon cancer and coronary artery bypass surgery, history of bowel resection. PHYSICAL EXAMINATION: At present reveals an 82-year-old gentleman who does not appear to be in any acute distress. The patient's blood pressure is 126/79 mmHg. Head ENT examination is negative. NECK: Supple. There is no increase in jugular venous pressure. Both the carotid pulses are felt. There is no bruit. Chest is symmetrical. Heart the PMI is not felt. First and second heart sounds are normal. Lungs are clinically clear to auscultation and percussion. Abdomen is negative. Extremities: Peripheral pulses are not felt. EKG shows a normal sinus rhythm without any acute ischemic changes. Patient's cardiac enzymes are normal. FINAL IMPRESSION: This patient has been admitted with intermittent epigastric and substernal chest pain. There is no evidence of acute coronary syndrome, unstable angina cannot be entirely excluded. The patient wants to continue on medical treatment. Start the patient on Imdur once a day and nitroglycerin p.r.n. He is advised to follow up with Dr. Gentile as an outpatient and can be evaluated with a stress test. Thank you for this consultation. MMODL / IJN: [id number] /
--- NOTE | 2018-01-30 22:43 | DS ---
DISCHARGE SUMMARY FINAL DIAGNOSES: 1. Chest pain possible unstable angina, myocardial infarction ruled out. 2. Increased creatinine with possible chronic kidney disease stage 3. 3. Coronary artery disease, coronary artery bypass grafting. 4. Hypertension. 5. Hyperlipidemia. 6. Diabetes type 2. 7. Colon cancer. 8. History of bowel resection. DISCHARGE DISPOSITION: The patient discharged in stable condition with guarded prognosis. Cardiology cleared the patient for discharge. HISTORY OF PRESENT ILLNESS: This 82-year-old gentleman with a past medical history of multiple medical problems, being followed by Dr. Rascon in the outpatient was admitted with chest pain. Myocardial infarction ruled out. Cardiology saw the patient. Medication adjusted. Patient improved significantly. Cardiology recommended outpatient followup. On exam, vital signs are stable. Cardiovascular S1, S2. Abdomen soft. Nervous system: No focal deficits. DISCHARGE ADVICE AND MEDICATIONS: 1. Discharged diet is cardiac diet. 2. Activity limited until followup. 3. Follow up with Dr. Rascon in 2 to 3 days. 4. Follow up with Dr. Gentile in 1 week. MEDICATIONS ARE: 1. Norvasc 5 mg p.o. daily. 2. Vitamin C 1000 mg p.o. daily. 3. Ecotrin 81 mg p.o. daily. 4. Atropine eyedrops as before. 5. Vitamin B12 2.5 mg p.o. daily. 6. Colace 100 mg p.o. daily. 7. Fenofibrate 145 mg p.o. daily. 8. Iron sulfate 320 mg q.48h hours. 9. Fish oil 360 mg p.o. daily. 10.Lisinopril hydrochlorothiazide 20/25 p.o. daily. 11.Magnesium 1 p.o. daily. 12.Metformin 500 mg a.c. supper. 13.Lopressor 50 mg p.o. daily. 14.Prilosec 20 mg. 15.K-Dur 10 mEq p.o. daily. 16.Prednisone acetate ophthalmic 1 drop right eye. 17.Propylene glycol 1 drop both eyes. 18.Januvia 50 mg p.o. daily. 19.Restoril 50 mg q.h.s. p.r.n. 20.Lipitor 40 mg p.o. daily. 21.Imdur ER 30 mg p.o. daily. 22.Nitrostat 0.4 mg p.r.n. 23.Protonix 40 mg daily. Once again, the patient being discharged in stable condition with guarded prognosis. MMODL / IJN: [id number] /
[2018-01-31] MEDS ORDERED: ISOSORBIDE MONONITRATE ER 30 MG TAB.ER.24H PO SCH (09:00)
[2018-01-31] MEDS ORDERED: ATORVASTATIN 40 MG TAB PO SCH (09:00)
--- NOTE | 2018-02-02 09:45 | ECHOF ---
Referral Reason:cp MEASUREMENTS -------- HEIGHT: 180.3 cm WEIGHT: 99.8 kg BP: 126/79 IVSd: 1.1 cm (0.6 - 1.1) LVIDd: 5.8 cm (3.9 - 5.3) LVPWd: 1.1 cm (0.6 - 1.1) EDV(Teich): 167 ml IVSs: 1.7 cm LVIDs: 4.1 cm LVPWs: 1.6 cm %IVS Thck: 51 % ESV(Teich): 74 ml EF(Teich): 56 % %FS: 30 % SV(Teich): 93 ml LVOT Diam: 2.5 cm LA Diam: 3.9 cm (2.7 - 3.8) RVIDd: 4.2 cm (< 3.3) LALs A4C: 6.1 cm LAAs A4C: 23.0 cm LAESV A-L A4C: 73 ml LAESV MOD A4C: 70 ml LALs A2C: 5.9 cm LAAs A2C: 21.5 cm LAESV A-L A2C: 67 ml LAESV MOD A2C: 63 ml LAESV(A-L): 71 ml LAESV Index (A-L): 32.37 ml/m Ao Diam: 3.9 cm (2.0 - 3.7) AV Cusp: 1.2 cm (1.5 - 2.6) EPSS: 0.7 cm MV E Hoang: 0.85 m/s MV DecT: 347 ms MV Dec [place]: 2.5 m/s MV A Hoang: 1.18 m/s MV E/A Ratio: 0.73 MV PHT: 101 ms LVOT Vmax: 1.10 m/s LVOT maxP.88 mmHg LVOT Vmax: 1.10 m/s LVOT Vmean: 0.65 m/s LVOT maxP.88 mmHg LVOT meanP.05 mmHg LVOT Env.Ti: 323 ms LVOT VTI: 21.0 cm AV Vmax: 1.83 m/s AV maxP.37 mmHg GORAN Vmax, Pt: 3.0 cm GORAN Vmax: 3.0 cm AV Vmax: 1.90 m/s AV Vmean: 1.32 m/s AV maxP.40 mmHg AV meanP.69 mmHg AV Env.Ti: 286 ms AV VTI: 37.7 cm GORAN Vmax: 2.8 cm GORAN (VTI): 2.7 cm GORAN Vmax, Pt: 2.8 cm TR Vmax: 2.53 m/s TR maxP.70 mmHg RAP: 5.00 mmHg RVSP: 30.70 mmHg MV EF SLOPE: 33.89 mm/s (70 - 150) MV EXCURSION: 12.49 mm (> 18.000) FINDINGS -------- Sinus rhythm. This was a technically good study. The left ventricular size is normal. There is borderline concentric left ventricular hypertrophy. Overall left ventricular systolic function is mildly impaired with, an EF between 45 - 50 %. The right ventricle is severely enlarged. LA is midly dilated 29-33ml/m2. The right atrium is normal in size. There is mild aortic valve sclerosis. There is mild aortic stenosis present. Peak/mean gradient a cross the Aortic Valve is 14.40mmHg / 7.69mmHg. Mild mitral annular calcification present. Mild tricuspid regurgitation present. Right ventricular systolic pressure is normal at < 35 mmHg. Trace/mild (physiologic) pulmonic regurgitation. The aortic root is dilated measuring 3.9cm. IVC Not well visulized. There is no pericardial effusion. CONCLUSIONS -------- 1. Sinus rhythm. 2. This was a technically good study. 3. The left ventricular size is normal. 4. There is borderline concentric left ventricular hypertrophy. 5. The right ventricle is severely enlarged. 6. LA is midly dilated 29-33ml/m2. 7. The right atrium is normal in size. 8. There is mild aortic valve sclerosis. 9. There is mild aortic stenosis present. 10. Peak/mean gradient across the Aortic Valve is 14.40mmHg / 7.69mmHg. 11. Mild mitral annular calcification present. 12. Mild tricuspid regurgitation present. 13. Right ventricular systolic pressure is normal at < 35 mmHg. 14. Trace/mild (physiologic) pulmonic regurgitation. 15. The aortic root is dilated measuring 3.9cm. 16. IVC Not well visulized. 17. There is no pericardial effusion. CAMPAIGN DIRECTOR: Briana Mcpherson RDCS
== END 2018-01-30 16:00 | disposition home or self-care (01) ==
LOC: EC 07:58 → 3OBS 09:55
PROVIDERS: ADMIT Hospitalist; ATTEND Hospitalist
DX: R07.89 Other chest pain (principal); E11.9 Type 2 diabetes mellitus without complications; I10 Essential (primary) hypertension; E78.00 Pure hypercholesterolemia, unspecified; I25.10 Atherosclerotic heart disease of native coronary artery without angina pectoris; E78.5 Hyperlipidemia, unspecified; Z79.82 Long term (current) use of aspirin; Z79.84 Long term (current) use of oral hypoglycemic drugs; Z88.8 Allergy status to other drugs, medicaments and biological substances; Z95.1 Presence of aortocoronary bypass graft; Z85.038 Personal history of other malignant neoplasm of large intestine; Z90.49 Acquired absence of other specified parts of digestive tract
CPT/HCPCS: 99291; 96366 ×2; 96376 ×2; 96365; 36415; 93005; 93306; 80061; 80053; 80048; 82550; 82553; 83735; 84484; 85025 ×2; 85610; 85730 ×2; 83036; 71046; G0378 ×2; J1644 ×2

== ENCOUNTER → 2018-09-16 | Outpatient (CLI) | payer MEDICARE, BC ==
[2018-09-16 09:30] LABS: Basophils # (A) 0.1 k/uL (0-0.2); Basophils % (A) 1 %; Eosinophils # (A) 0.5 k/uL (0-0.7); Eosinophils % (A) 9 %; HCT 37.1 % (39.0-53.0); HGB 11.9 gm/dL (13.0-17.5); Hypochromasia Slight; Lymphocytes # (A) 0.9 k/uL (1.0-4.8); Lymphocytes % (A) 16 %; MCH 30.4 pg (25.0-35.0); MCHC 32.1 g/dL (31.0-37.0); MCV 94.8 fL (80.0-100.0); Mean Platelet Volume 6.6; Monocytes # (A) 0.5 k/uL (0-1.0); Monocytes % (A) 8 %; Neutrophils # (A) 3.8 k/uL (1.3-7.7); Neutrophils % (A) 64 %; Platelet Count 213 k/uL (150-450); RBC 3.91 m/uL (4.30-5.90); RDW 14.7 % (11.5-15.5); WBC 5.9 k/uL (3.8-10.6)
--- NOTE | 2018-09-16 11:32 | XR ---
EXAMINATION TYPE: XR chest 2V DATE OF EXAM: 09/16/2018 COMPARISON: 02/17/2018 HISTORY: Shortness of breath, congestive heart failure and coronary artery disease TECHNIQUE: Frontal and lateral views of the chest are obtained. FINDINGS: There is no focal air space opacity, pleural effusion, or pneumothorax seen. No pulmonary vascular congestion. Pulmonary hyperinflation suggests underlying COPD is flattening of the diaphrag ms is also seen on the lateral image. Post CABG changes the chest are noted. The cardiac silhouette s ize is within normal limits. Bridging osteophytes are seen of the thoracic spine suggesting diffuse i diopathic skeletal hyperostosis. IMPRESSION: No acute cardiopulmonary process. No pulmonary vascular congestion. Hyperinflation sugge sts underlying COPD.
[2018-09-16 17:06] LABS: Albumin 4.2 g/dL (3.80-4.90); Albumin/Globulin Ratio 2.1 (1.60-3.17); Anion Gap 10.4 mmol/L (4.00-12.00); Calcium 9.1 mg/dL (8.7-10.3); Carbon Dioxide 24.6 mmol/L (21.6-31.8); Potassium 4.9 mmol/L (3.5-5.5); Total Bilirubin 0.4 mg/dL (0.2-1.2); Total Protein 6.2 g/dL (6.2-8.2)
== END | disposition home or self-care (01) ==
LOC: LABWHC1 08:16
PROVIDERS: ATTEND Internal Medicine Cardiovascular Disease
DX: R91.8 Other nonspecific abnormal finding of lung field (principal); R06.02 Shortness of breath; I50.9 Heart failure, unspecified; I25.10 Atherosclerotic heart disease of native coronary artery without angina pectoris
CPT/HCPCS: 36415; 71046; 80053; 83880; 85025

== ENCOUNTER → 2018-09-26 | Outpatient (CLI) | payer MEDICARE, BC ==
[2018-09-26 11:31] LABS: Albumin 4.3 g/dL (3.80-4.90); Albumin/Globulin Ratio 2.05 (1.60-3.17); Anion Gap 6.9 mmol/L (4.00-12.00); Calcium 9.4 mg/dL (8.7-10.3); Carbon Dioxide 27.1 mmol/L (21.6-31.8); Globulin 2.1 g/dL (1.6-3.3); LDL Cholesterol,Calculated 55.4 mg/dL (0.0-131.0); Potassium 4.8 mmol/L (3.5-5.5); Total Bilirubin 0.4 mg/dL (0.3-1.2); Total Protein 6.4 g/dL (6.2-8.2); VLDL Calculation 36.6 mg/dL (5.00-40.00)
[2018-09-26 14:51] LABS: Hemoglobin A1C 7.8 % (4.0-6.0)
== END | disposition home or self-care (01) ==
LOC: LABWHC1 06:40
PROVIDERS: ATTEND Internal Medicine Endocrinology, Diabetes & Metabolism
DX: E11.65 Type 2 diabetes mellitus with hyperglycemia (principal)
CPT/HCPCS: 36415; 80053; 80061; 82043; 82570; 83036; 84443

== ENCOUNTER → 2018-10-25 | Outpatient (CLI) | payer MEDICARE, BC ==
--- NOTE | 2018-10-25 15:23 | XR ---
EXAMINATION TYPE: XR abdomen complete w decub DATE OF EXAM: 10/25/2018 CLINICAL HISTORY: Epigastric pain and nausea for 5 days TECHNIQUE: Supine, upright, and left side down lateral decubitus views of the abdomen are obtained. COMPARISON: Chest x-ray September 16, 2018 CT chest abdomen and pelvis February 01, 2014. FINDINGS: There is some paucity of bowel gas. There is scattered gas that is seen in nondistended sma ll bowel loops in the lower abdomen and pelvis and colon along the periphery . No pneumoperitoneum is present. Scattered coils from hernia repair surgery overlying the lower abdomen and pelvis. Prominen t osteophyte left lumbosacral junction is redemonstrated. Mild to moderate narrowing and spurring of both hip joints is seen. No pneumoperitoneum is evident. Partial visualization of sternal wires. Brid ging spurs throughout the thoracolumbar spine are present. IMPRESSION: Overall nonspecific but favor nonobstructive bowel gas pattern.
== END | disposition home or self-care (01) ==
LOC: RAD 14:49
PROVIDERS: ATTEND Family Medicine
DX: R10.9 Unspecified abdominal pain (principal)
CPT/HCPCS: 74021

== ENCOUNTER 2018-10-30 19:14 | Inpatient (IN) | payer MEDICARE, BC ==
[2018-10-30] MEDS ORDERED: FAMOTIDINE 20 MG/2 ML VIAL IV STA (19:46)
[2018-10-30] MEDS ORDERED: SUCRALFATE 1 GM TAB PO STA (19:46)
[2018-10-30] MEDS ORDERED: ASPIRIN 81 MG PO STA (19:46)
--- NOTE | 2018-10-30 19:53 | ED ---
General Adult HPI - General Chief complaint: Dizziness Stated complaint: dizziness, abd pain Time Seen by Provider: 10/30/18 19:30 Source: patient Mode of arrival: wheelchair Limitations: no limitations - History of Present Illness Initial comments: Patient is an 83-year-old male with a history of coronary artery disease, status post triple bypass 20 years ago, hypertension, hyperlipidemia, and diabetes who presents with a chief complaint of generalized fatigue and weakness for about 10 days. Patient states he was seen by his primary care doctor who ran some tests and stated that they were all normal. Patient cannot identify an inciting incident. There are no aggravating or alleviating factors. Timing is constant. Patient states he is doing with acid reflux, he was instructed to take Maalox by his primary care doctor but states that this is not helping him. The patient states that he does have some discomfort in his epigastric region and radiates to his chest. He states he does have a sour taste in his mouth. He denies any fever, chills, sick contacts, nausea or vomiting. He states that he has had a herniorrhaphy in the past, he is having regular bowel movements, no difficulties urinating. - Related Data Home Medications Medication Instructions Recorded Confirmed Ascorbic Acid [Vitamin C] 1,000 mg PO DAILY 04/03/15 10/30/18 Aspirin EC [Ecotrin Low Dose] 81 mg PO DAILY 04/03/15 10/30/18 Atropine Ophth Soln 1% 5Ml [Isopto 2 drops RIGHT EYE DAILY 04/03/15 10/30/18 Atropine 1% 5Ml] Fenofibrate Nanocrystallized 145 mg PO DAILY 04/03/15 10/30/18 [Tricor] Ferrous Sulfate [Feosol] 325 mg PO Q48H 04/03/15 10/30/18 Lisinopril-Hctz 20-25 mg 1 tab PO DAILY 04/03/15 10/30/18 [Zestoretic 20-25] Metoprolol Tartrate [Lopressor] 50 mg PO DAILY 04/03/15 10/30/18 Potassium Chloride ER [K-Dur 10] 10 meq PO DAILY 04/03/15 10/30/18 Propylene Glycol/Peg 400/Pf 1 drop BOTH EYES DAILY PRN 04/03/15 10/30/18 [Systane 0.3-0.4% Eye Drops] Temazepam [Restoril] 15 mg PO HS PRN 04/03/15 10/30/18 metFORMIN HCL 500 mg PO AC-SUPPER 04/03/15 10/30/18 prednisoLONE ACETATE 1% OPHTH 1 drops RIGHT EYE DAILY 04/03/15 10/30/18 [Pred Forte 1%] sitaGLIPtin [Januvia] 50 mg PO DAILY 04/03/15 10/30/18 Docusate [Colace] 100 mg PO DAILY PRN 11/01/16 10/30/18 Magnesium Chelated Zinc 1 tab PO DAILY 11/01/16 10/30/18 Omeprazole [PriLOSEC] 20 mg PO DAILY PRN 11/01/16 10/30/18 Cyanocobalamin (Vitamin B-12) 2,500 mcg PO DAILY 05/23/17 10/30/18 [Vitamin B-12] Fish Oil 360mg 360 mg PO DAILY 01/29/18 10/30/18 amLODIPine [Norvasc] 5 mg PO DAILY 01/29/18 10/30/18 Atorvastatin [Lipitor] 40 mg PO HS 10/30/18 10/30/18 Azithromycin [Zithromax Z-pack] See Taper PO DIRECTED 10/30/18 10/30/18 Furosemide [Lasix] 20 mg PO DAILY 10/30/18 10/30/18 Meclizine [Antivert] 25 mg PO TID PRN 10/30/18 10/30/18 Previous Rx's Medication Instructions Recorded Isosorbide Mononitrate ER [Imdur] 30 mg PO DAILY #30 tab.er.24h 01/30/18 Pantoprazole [Protonix] 40 mg PO -BRKFST #30 tablet. 01/30/18 Allergies Allergy/AdvReac Type Severity Reaction Status Date / Time fluticasone [From Flonase] AdvReac FAINTING Verified 10/30/18 19:56 Review of Systems ROS Statement: Those systems with pertinent positive or pertinent negative responses have been documented in the HPI. ROS Other: All systems not noted in ROS Statement are negative. Cardiovascular: Reports: dyspnea on exertion Neurological: Reports: weakness (Generalized) Past Medical History Past Medical History: Coronary Artery Disease (CAD), Cancer, Diabetes Mellitus, Hyperlipidemia, Hypertension Additional Past Medical History / Comment(s): colon ca, cataracts, hard of hearing History of Any Multi-Drug Resistant Organisms: None Reported Past Surgical History: Bowel Resection, Coronary Bypass/CABG Additional Past Surgical History / Comment(s): colon ca, hernia repair, triple vessel CABG 1995 Past Anesthesia/Blood Transfusion Reactions: No Reported Reaction Past Psychological History: No Psychological Hx Reported Smoking Status: Never smoker Past Alcohol Use History: None Reported Past Drug Use History: None Reported General Exam Limitations: no limitations General appearance: alert, in no apparent distress Head exam: Present: atraumatic, normocephalic Eye exam: Present: normal appearance, PERRL, EOMI, other (patient blind in the right eye ) ENT exam: Present: normal exam, mucous membranes moist Neck exam: Present: normal inspection Respiratory exam: Present: normal lung sounds bilaterally. Absent: respiratory distress, wheezes Cardiovascular Exam: Present: regular rate, irregular rhythm (regularly irregular in a bigeminy pattern ) GI/Abdominal exam: Present: soft, tenderness (mild epigastric tenderness). Absent: distended Rectal exam: Present: deferred Extremities exam: Present: normal inspection Back exam: Present: normal inspection Neurological exam: Present: alert, oriented X3 Psychiatric exam: Present: normal affect, normal mood Skin exam: Present: warm, dry, intact Course Vital Signs 10/30/18 10/30/18 10/30/18 19:15 19:28 19:30 Temperature 97.1 F L Pulse Rate 88 79 Respiratory 18 24 Rate Blood Pressure 169/88 152/71 152/71 O2 Sat by Pulse 95 93 L 93 L Oximetry 10/30/18 10/30/18 10/30/18 20:00 20:30 21:00 Temperature Pulse Rate 73 72 Respiratory 18 19 Rate Blood Pressure 155/80 146/80 158/73 O2 Sat by Pulse 92 L 95 Oximetry 10/30/18 21:30 Temperature Pulse Rate 69 Respiratory 12 Rate Blood Pressure 155/82 O2 Sat by Pulse 95 Oximetry Medical Decision Making - Medical Decision Making Patient presents with a chief complaint of generalized weakness for 10 days. On initial evaluation, vital signs are stable, patient is in no acute distress. EKG performed at 1927 shows sinus rhythm with frequent PVCs and bigeminy pattern. Bigeminy is new when compared to previous EKG performed on 01/29/2018. Patient to be evaluated basic labs including cardiac enzymes, liver profile and lipase. He was given aspirin, and a GI cocktail. Reviewed patient's records show that he had an echocardiogram in January 2018. Echo showed an EF of 45-5 0% with global left sided hypertrophy. 8:42 PM Blood evaluation of this patient shows acute renal injury with a creatinine of 2.18, a potassium of 5.6. Reviewed patient's previous values shows a steady decline in renal function with a baseline of around 1.3-1.4. Patient was given 40 mg of Lasix, and a liter of fluid along with 1 g of calcium gluconate for hyperkalemia. Elevated potassium likely the cause of patient's frequent PVCs. Case discussed with Dr. Price who accepts admission consult to cardiology and nephrology. Patient is agreeable with this care plan. Chest x-ray is unremarka ble, currently pending computed tomography scan of the head. X-ray shows possibility of pneumonia. Patient complaining of cough or other symptoms of lower respiratory infection, patient given an initial dose of azithromycin and Rocephin. Computed tomography scan of the head shows no acute intracranial hemorrhage or midline shift. There are old chronic changes identified, there is a large left maxillary mucosal cyst and mild paranasal sinus disease of the ethmoid and right maxillary sinuses. Remainder laboratory evaluation is unremarkable. - Lab Data Result diagrams: 10/30/18 19:30 10/30/18 19:30 Lab Results 10/30/18 10/30/18 10/30/18 Range/Units 19:30 19:30 19:30 WBC 7.3 (3.8-10.6) k/uL RBC 4.34 (4.30-5.90) m/uL Hgb 12.9 L (13.0-17.5) gm/dL Hct 39.3 (39.0-53.0) % MCV 90.5 (80.0-100.0) fL MCH 29.7 (25.0-35.0) pg MCHC 32.8 (31.0-37.0) g/dL RDW 15.9 H (11.5-15.5) % Plt Count 226 (150-450) k/uL Neutrophils % 69 % Lymphocytes % 15 % Monocytes % 7 % Eosinophils % 6 % Basophils % 1 % Neutrophils # 5.1 (1.3-7.7) k/uL Lymphocytes # 1.1 (1.0-4.8) k/uL Monocytes # 0.5 (0-1.0) k/uL Eosinophils # 0.4 (0-0.7) k/uL Basophils # 0.1 (0-0.2) k/uL Sodium 140 (137-145) mmol/L Potassium 5.6 H (3.5-5.1) mmol/L Chloride 109 H (98-107) mmol/L Carbon Dioxide 20 L (22-30) mmol/L Anion Gap 11 mmol/L BUN 51 H (9-20) mg/dL Creatinine 2.18 H (0.66-1.25) mg/dL Est GFR (CKD-EPI)AfAm 31 (>60 ml/min/1.73 sqM) Est GFR (CKD-EPI)NonAf 27 (>60 ml/min/1.73 sqM) Glucose 127 H (74-99) mg/dL Calcium 9.6 (8.4-10.2) mg/dL Total Bilirubin 0.4 (0.2-1.3) mg/dL AST 36 (17-59) U/L ALT 45 (21-72) U/L Alkaline Phosphatase 94 (38-126) U/L Troponin I 0.012 (0.000-0.034) ng/mL NT-Pro-B Natriuret Pep pg/mL Total Protein 7.5 (6.3-8.2) g/dL Albumin 4.4 (3.5-5.0) g/dL Lipase 172 (23-300) U/L Urine Color Urine Appearance (Clear) Urine pH (5.0-8.0) Ur Specific Barrett (1.001-1.035) Urine Protein (Negative) Urine Glucose (UA) (Negative) Urine Ketones (Negative) Urine Blood (Negative) Urine Nitrite (Negative) Urine Bilirubin (Negative) Urine Urobilinogen (<2.0) mg/dL Ur Leukocyte Esterase (Negative) Urine RBC (0-5) /hpf Urine WBC (0-5) /hpf Ur Squamous Epith Cells (0-4) /hpf Hyaline Casts (0-2) /lpf Urine Mucus (None) /hpf Urine Osmolality (50-1400) mosm/kg Ur Random Creatinine mg/dL U Random Total Protein (<12) mg/dL 10/30/18 10/30/18 10/30/18 Range/Units 19:30 20:35 20:35 WBC (3.8-10.6) k/uL RBC (4.30-5.90) m/uL Hgb (13.0-17.5) gm/dL Hct (39.0-53.0) % MCV (80.0-100.0) fL MCH (25.0-35.0) pg MCHC (31.0-37.0) g/dL RDW (11.5-15.5) % Plt Count (150-450) k/uL Neutrophils % % Lymphocytes % % Monocytes % % Eosinophils % % Basophils % % Neutrophils # (1.3-7.7) k/uL Lymphocytes # (1.0-4.8) k/uL Monocytes # (0-1.0) k/uL Eosinophils # (0-0.7) k/uL Basophils # (0-0.2) k/uL Sodium (137-145) mmol/L Potassium (3.5-5.1) mmol/L Chloride (98-107) mmol/L Carbon Dioxide (22-30) mmol/L Anion Gap mmol/L BUN (9-20) mg/dL Creatinine (0.66-1.25) mg/dL Est GFR (CKD-EPI)AfAm (>60 ml/min/1.73 sqM) Est GFR (CKD-EPI)NonAf (>60 ml/min/1.73 sqM) Glucose (74-99) mg/dL Calcium (8.4-10.2) mg/dL Total Bilirubin (0.2-1.3) mg/dL AST (17-59) U/L ALT (21-72) U/L Alkaline Phosphatase (38-126) U/L Troponin I (0.000-0.034) ng/mL NT-Pro-B Natriuret Pep 1180 pg/mL Total Protein (6.3-8.2) g/dL Albumin (3.5-5.0) g/dL Lipase (23-300) U/L Urine Color Yellow Urine Appearance Clear (Clear) Urine pH 6.0 (5.0-8.0) Ur Specific Barrett 1.019 (1.001-1.035) Urine Protein 1+ H (Negative) Urine Glucose (UA) Negative (Negative) Urine Ketones Negative (Negative) Urine Blood Negative (Negative) Urine Nitrite Negative (Negative) Urine Bilirubin Negative (Negative) Urine Urobilinogen <2.0 (<2.0) mg/dL Ur Leukocyte Esterase Negative (Negative) Urine RBC 1 (0-5) /hpf Urine WBC 4 (0-5) /hpf Ur Squamous Epith Cells 1 (0-4) /hpf Hyaline Casts 1 (0-2) /lpf Urine Mucus Rare H (None) /hpf Urine Osmolality 635 (50-1400) mosm/kg Ur Random Creatinine 109.7 mg/dL U Random Total Protein (<12) mg/dL 10/30/18 Range/Units 20:35 WBC (3.8-10.6) k/uL RBC (4.30-5.90) m/uL Hgb (13.0-17.5) gm/dL Hct (39.0-53.0) % MCV (80.0-100.0) fL MCH (25.0-35.0) pg MCHC (31.0-37.0) g/dL RDW (11.5-15.5) % Plt Count (150-450) k/uL Neutrophils % % Lymphocytes % % Monocytes % % Eosinophils % % Basophils % % Neutrophils # (1.3-7.7) k/uL Lymphocytes # (1.0-4.8) k/uL Monocytes # (0-1.0) k/uL Eosinophils # (0-0.7) k/uL Basophils # (0-0.2) k/uL Sodium (137-145) mmol/L Potassium (3.5-5.1) mmol/L Chloride (98-107) mmol/L Carbon Dioxide (22-30) mmol/L Anion Gap mmol/L BUN (9-20) mg/dL Creatinine (0.66-1.25) mg/dL Est GFR (CKD-EPI)AfAm (>60 ml/min/1.73 sqM) Est GFR (CKD-EPI)NonAf (>60 ml/min/1.73 sqM) Glucose (74-99) mg/dL Calcium (8.4-10.2) mg/dL Total Bilirubin (0.2-1.3) mg/dL AST (17-59) U/L ALT (21-72) U/L Alkaline Phosphatase (38-126) U/L Troponin I (0.000-0.034) ng/mL NT-Pro-B Natriuret Pep pg/mL Total Protein (6.3-8.2) g/dL Albumin (3.5-5.0) g/dL Lipase (23-300) U/L Urine Color Urine Appearance (Clear) Urine pH (5.0-8.0) Ur Specific Barrett (1.001-1.035) Urine Protein (Negative) Urine Glucose (UA) (Negative) Urine Ketones (Negative) Urine Blood (Negative) Urine Nitrite (Negative) Urine Bilirubin (Negative) Urine Urobilinogen (<2.0) mg/dL Ur Leukocyte Esterase (Negative) Urine RBC (0-5) /hpf Urine WBC (0-5) /hpf Ur Squamous Epith Cells (0-4) /hpf Hyaline Casts (0-2) /lpf Urine Mucus (None) /hpf Urine Osmolality (50-1400) mosm/kg Ur Random Creatinine mg/dL U Random Total Protein 89 H (<12) mg/dL Disposition Clinical Impression: Palpitations, GERD (gastroesophageal reflux disease), EVELYNE (acute kidney injury), Hyperkalemia, CAP (community acquired pneumonia) Disposition: ADMITTED IP TO THIS HOSP Condition: Good Is patient prescribed a controlled substance at d/c from ED?: No Decision to Admit Reason: Admit from EC - Out of Hospital Transfer - Req. Specs Out of Hospital Transfer - Requested Specifics: Telemetry Unit
[2018-10-30 20:00] LABS: Basophils # (A) 0.1 k/uL (0-0.2); Basophils % (A) 1 %; Eosinophils # (A) 0.4 k/uL (0-0.7); Eosinophils % (A) 6 %; HCT 39.3 % (39.0-53.0); HGB 12.9 gm/dL (13.0-17.5); Lymphocytes # (A) 1.1 k/uL (1.0-4.8); Lymphocytes % (A) 15 %; MCH 29.7 pg (25.0-35.0); MCHC 32.8 g/dL (31.0-37.0); MCV 90.5 fL (80.0-100.0); Mean Platelet Volume 7.2; Monocytes # (A) 0.5 k/uL (0-1.0); Monocytes % (A) 7 %; Neutrophils # (A) 5.1 k/uL (1.3-7.7); Neutrophils % (A) 69 %; Platelet Count 226 k/uL (150-450); RBC 4.34 m/uL (4.30-5.90); RDW 15.9 % (11.5-15.5); WBC 7.3 k/uL (3.8-10.6)
[2018-10-30] MEDS: MAG HYDROX/AL HYDROX/SIMETH 30 ML CUP PO PRN (20:03)
[2018-10-30 20:05] LABS: Albumin 4.4 g/dL (3.5-5.0); Calcium 9.6 mg/dL (8.4-10.2); Potassium 5.6 mmol/L (3.5-5.1); Total Bilirubin 0.4 mg/dL (0.2-1.3); Total Protein 7.5 g/dL (6.3-8.2)
--- NOTE | 2018-10-30 20:19 | XR ---
EXAMINATION TYPE: XR chest 2V DATE OF EXAM: 10/30/2018 COMPARISON: 09/16/2018 HISTORY: Chest pain TECHNIQUE: Frontal and lateral views of the chest are obtained. FINDINGS: There is a new left perihilar and left basilar opacity. There are overall low lung volumes . Old fracture deformity right mid posterior left mid posterior ribs are seen. Median sternotomy wire s from prior CABG are noted within the enlarged mediastinal silhouette. Prominence of the aortic arch is stable from 09/16/2018. Degenerative changes of the spine and shoulders are present. IMPRESSION: New left perihilar and retrocardiac airspace disease that may represent early developing pneumonia or atelectasis.
[2018-10-30] MEDS ORDERED: FUROSEMIDE 10 MG/ML 4 ML VIAL IV STA (20:27)
[2018-10-30] MEDS ORDERED: SODIUM CHLORIDE 0.9% 1,000 ML IV ONE (20:27)
[2018-10-30] MEDS ORDERED: NALOXONE 0.4 MG/ML 1 ML VIAL IV PRN (20:44)
[2018-10-30] MEDS ORDERED: CALCIUM GLUCONATE 1 GM in SODIUM CHLORIDE 0.9% 100 ML IVPB ONE (20:45)
[2018-10-30] MEDS ORDERED: SODIUM CHLORIDE 0.9% 1,000 ML IV SCH (20:45)
[2018-10-30 21:02] LABS: Appearance,Urine Clear (Clear); Bilirubin,Urine Negative (Negative); Blood,Urine Negative (Negative); Color,Urine Yellow; Glucose,Urine (UA) Negative (Negative); Hyaline Casts,Urine 1 /lpf (0-2); Ketones,Urine Negative (Negative); Leukocyte Esterase,Urine Negative (Negative); Mucus,Urine Rare /hpf; Nitrite,Urine Negative (Negative); Protein,Urine 1+ (Negative); RBC,Urine 1 /hpf (0-5); Specific Gravity,Urine 1.019 (1.001-1.035); Squamous Epithelial Cell,Urine 1 /hpf (0-4); Urobilinogen,Urine <2.0 mg/dL (<2.0); WBC,Urine 4 /hpf (0-5)
--- NOTE | 2018-10-30 21:03 | CT ---
EXAMINATION TYPE: CT brain wo con DATE OF EXAM: 10/30/2018 COMPARISON: 11/09/2011 HISTORY: Pt c/o dizziness, weakness, nausea CT DLP: 1188.4 mGycm Automated exposure control for dose reduction was used. TECHNIQUE: CT scan of the head is performed without contrast. FINDINGS: There is no acute intracranial hemorrhage or midline shift identified. There is diffuse v entricular and sulcal prominence consistent with diffuse age-related cerebral atrophy. There is an o ld lacunar injury of the right external capsule on image 31. There is low-attenuation in the perivent ricular white matter consistent with chronic small vessel ischemic change. The left maxillary sinus h as a large 2.6 x 2.2 cm mucosal retention cyst. There is scant mucosal thickening in the ethmoid sinu ses and right maxillary sinus. Remaining visualized paranasal sinuses and mastoid air cells are well aerated. Postsurgical changes are seen of the globes. IMPRESSION: 1. No acute intracranial hemorrhage or midline shift. 2. Old lacunar injury of the right external capsule. There is also diffuse age-related cerebral atrop hy and chronic small vessel ischemic change noted. 3. Large left maxillary mucosal cyst and mild paranasal sinus disease of the ethmoid and right maxill carolyne sinuses.
[2018-10-30 22:11] LABS: Creatinine,Urine Random 109.7 mg/dL
[2018-10-30 22:48] LABS: Glucose,Whole Blood 123 mg/dL (75-99)
[2018-10-30] MEDS ORDERED: ALPRAZolam 0.25 MG TAB PO STA (23:12)
[2018-10-30] MEDS ORDERED: MECLIZINE 25 MG TAB PO SCH (23:15)
[2018-10-31] MEDS ORDERED: cefTRIAXone IN SWFI 1,000 MG/10 ML SYRINGE IVP STA (00:50)
[2018-10-31] MEDS ORDERED: AZITHROMYCIN 500 MG in SODIUM CHLORIDE 0.9% 250 ML IVPB ONE ×2 (01:00→06:00)
[2018-10-31 06:25] LABS: Glucose,Whole Blood 124 mg/dL (75-99)
[2018-10-31] MEDS: INSULIN ASPART (NovoLOG) 100 UNIT/ML VIAL SQ SCH ×4 (06:33→21:19)
[2018-10-31 06:59] LABS: Basophils # (A) 0.1 k/uL (0-0.2); Basophils % (A) 1 %; Eosinophils # (A) 0.4 k/uL (0-0.7); Eosinophils % (A) 8 %; HCT 39.3 % (39.0-53.0); Lymphocytes # (A) 0.9 k/uL (1.0-4.8); Lymphocytes % (A) 18 %; MCH 28.2 pg (25.0-35.0); MCHC 30.5 g/dL (31.0-37.0); MCV 92.4 fL (80.0-100.0); Mean Platelet Volume 7.2; Monocytes # (A) 0.5 k/uL (0-1.0); Monocytes % (A) 9 %; Neutrophils # (A) 3.1 k/uL (1.3-7.7); Neutrophils % (A) 61 %; Platelet Count 196 k/uL (150-450); RBC 4.25 m/uL (4.30-5.90); RDW 15.2 % (11.5-15.5); WBC 5.1 k/uL (3.8-10.6)
[2018-10-31 07:05] LABS: Calcium 9.7 mg/dL (8.4-10.2); Potassium 5.5 mmol/L (3.5-5.1)
[2018-10-31] MEDS ORDERED: ARTIFICIAL TEARS-HYPROMELLOSE DROPS 15 ML BTL BOTH EYES PRN (09:00)
[2018-10-31] MEDS ORDERED: DOCUSATE 100 MG CAP PO PRN (09:00)
[2018-10-31] MEDS: ASPIRIN 81 MG PO SCH (10:22)
[2018-10-31] MEDS: CYANOCOBALAMIN 500 MCG TAB PO SCH (10:22)
[2018-10-31] MEDS: MECLIZINE 25 MG TAB PO SCH ×3 (10:23→21:21)
[2018-10-31] MEDS: METOPROLOL TARTRATE 50 MG TAB PO SCH (10:23)
[2018-10-31] MEDS: FENOFIBRATE 160 MG TAB PO SCH (10:23)
[2018-10-31] MEDS: amLODIPine 5 MG TAB PO SCH (10:23)
[2018-10-31] MEDS: FERROUS SULFATE 325 MG TAB PO SCH (10:23)
[2018-10-31] MEDS: ISOSORBIDE MONONITRATE ER 30 MG TAB.ER.24H PO SCH (10:23)
[2018-10-31] MEDS: ATROPINE OPHTH SOLN 1% 5ML BTL RIGHT EYE SCH (10:23)
[2018-10-31] MEDS: ASCORBIC ACID 500 MG TAB PO SCH (10:23)
[2018-10-31] MEDS: prednisoLONE ACETATE 1% OPHTH DROPS 5 ML BTL RIGHT EYE SCH (10:24)
[2018-10-31] MEDS ORDERED: DEXTROSE 50% SYRINGE 50 ML IVP STA (10:33)
--- NOTE | 2018-10-31 10:37 | P.NPCON ---
History of Present Illness - Reason for Consult acute renal failure, chronic renal failure - History of Present Illness Reason for consultation: Acute kidney injury on chronic kidney disease History of present illness: Patient is a 83-year-old male seen in consultation for acute kidney injury on chronic kidney disease. Patient has chronic knee disease stage III. Baseline creatinine in the range of 1.3-1.5 secondary to diabetic kidney disease. Creatinine on admission was 2.18 and is stable at 2.19 today. Patient presented to the hospital with generalized weakness and fatigue. No evidence of hypo tension. Patient states he did feel dizzy at home and almost fell. He admits to good urine output. No hematuria or dysuria. No vomiting or diarrhea. Patient was taking metformin as part of his diabetes medications at home. He was also on Zestoretic. Denies use of nonsteroidals. Denies family history of renal disease. Oral intake has been good. No chest pain or shortness of breath. No fever or chills. No cough. No edema. Vital signs are stable. General: The patient appeared well nourished and normally developed. HEENT: Head exam is unremarkable. Neck is without jugular venous distension. LUNGS: Lungs are clear to auscultation and percussion. Breath sounds decreased. HEART: Rate and Rhythm are regular. First and second heart sounds normal. No murmurs, rubs or gallops. ABDOMEN: Abdominal exam reveals normal bowel sounds. Non-tender and non- distended. No evidence of peritonitis. EXTREMITITES: No clubbing, cyanosis, or edema. Past Medical History Past Medical History: Coronary Artery Disease (CAD), Cancer, Diabetes Mellitus, Hyperlipidemia, Hypertension Additional Past Medical History / Comment(s): colon ca, cataracts, hard of hearing History of Any Multi-Drug Resistant Organisms: None Reported Past Surgical History: Bowel Resection, Coronary Bypass/CABG Additional Past Surgical History / Comment(s): colon ca, hernia repair, triple vessel CABG 1995 Past Anesthesia/Blood Transfusion Reactions: No Reported Reaction Past Psychological History: No Psychological Hx Reported Smoking Status: Never smoker Past Alcohol Use History: None Reported Past Drug Use History: None Reported Medications and Allergies Home Medications Medication Instructions Recorded Confirmed Type Ascorbic Acid [Vitamin C] 1,000 mg PO DAILY 04/03/15 10/30/18 History Aspirin EC [Ecotrin Low Dose] 81 mg PO DAILY 04/03/15 10/30/18 History Atropine Ophth Soln 1% 5Ml [Isopto 2 drops RIGHT EYE DAILY 04/03/15 10/30/18 History Atropine 1% 5Ml] Fenofibrate Nanocrystallized 145 mg PO DAILY 04/03/15 10/30/18 History [Tricor] Ferrous Sulfate [Feosol] 325 mg PO Q48H 04/03/15 10/30/18 History Lisinopril-Hctz 20-25 mg 1 tab PO DAILY 04/03/15 10/30/18 History [Zestoretic 20-25] Metoprolol Tartrate [Lopressor] 50 mg PO DAILY 04/03/15 10/30/18 History Potassium Chloride ER [K-Dur 10] 10 meq PO DAILY 04/03/15 10/30/18 History Propylene Glycol/Peg 400/Pf 1 drop BOTH EYES DAILY PRN 04/03/15 10/30/18 History [Systane 0.3-0.4% Eye Drops] Temazepam [Restoril] 15 mg PO HS PRN 04/03/15 10/30/18 History metFORMIN HCL 500 mg PO AC-SUPPER 04/03/15 10/30/18 History prednisoLONE ACETATE 1% OPHTH 1 drops RIGHT EYE DAILY 04/03/15 10/30/18 History [Pred Forte 1%] sitaGLIPtin [Januvia] 50 mg PO DAILY 04/03/15 10/30/18 History Docusate [Colace] 100 mg PO DAILY PRN 11/01/16 10/30/18 History Magnesium Chelated Zinc 1 tab PO DAILY 11/01/16 10/30/18 History Omeprazole [PriLOSEC] 20 mg PO DAILY PRN 11/01/16 10/30/18 History Cyanocobalamin (Vitamin B-12) 2,500 mcg PO DAILY 05/23/17 10/30/18 History [Vitamin B-12] Fish Oil 360mg 360 mg PO DAILY 01/29/18 10/30/18 History amLODIPine [Norvasc] 5 mg PO DAILY 01/29/18 10/30/18 History Isosorbide Mononitrate ER [Imdur] 30 mg PO DAILY #30 tab.er.24h 01/30/18 10/30/18 Rx Pantoprazole [Protonix] 40 mg PO AC-BRKFST #30 tablet.dr 01/30/18 10/30/18 Rx Atorvastatin [Lipitor] 40 mg PO HS 10/30/18 10/30/18 History Azithromycin [Zithromax Z-pack] See Taper PO DIRECTED 10/30/18 10/30/18 History Furosemide [Lasix] 20 mg PO DAILY 10/30/18 10/30/18 History Meclizine [Antivert] 25 mg PO TID PRN 10/30/18 10/30/18 History Allergies Allergy/AdvReac Type Severity Reaction Status Date / Time fluticasone [From Flonase] AdvReac FAINTING Verified 10/30/18 19:56 Physical Exam Vitals: Vital Signs Temp Pulse Pulse Resp BP BP Pulse Ox 10/31/18 08:35 97.4 F L 70 18 139/76 95 10/31/18 04:00 64 18 130/59 95 10/31/18 00:00 97.6 F 69 19 126/74 98 10/30/18 21:30 69 12 155/82 95 10/30/18 21:00 72 19 158/73 95 10/30/18 20:30 146/80 10/30/18 20:00 73 18 155/80 92 L 10/30/18 19:30 79 24 152/71 93 L 10/30/18 19:28 152/71 93 L 10/30/18 19:15 97.1 F L 88 18 169/88 95 Intake and Output 10/30/18 10/31/18 10/31/18 22:59 06:59 14:59 Intake Total 240 Output Total 400 Balance -160 Intake: Oral 240 Output: Urine 400 Other: Voiding Method Toilet # Voids 1 5 Weight 105.233 kg 102.5 kg Results - Lab Results Most recent lab results Calcium 9.7 mg/dL (8.4-10.2) 10/31/18 06:34 10/31/18 06:34 10/31/18 06:34 Assessment and Plan Plan: Assessment: 1. Acute kidney injury. Etiology is unclear. Need to rule out urinary retention and obstructive uropathy. Also component of prerenal from Zestoretic. Renal function stable. Creatinine 2.19 today. 2. Chronic kidney disease stage III most likely secondary to diabetic kidney disease with baseline creatinine in the range of 1.3-1.5. 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 3. Hyperkalemia secondary to acute kidney injury as well as potassium supplementation and lisinopril that he was taking. Again need to rule out urinary retention. 4. Diabetes mellitus. 5. Hypertension with chronic kidney disease. Controlled. 6. Possible pneumonia. Plan: Encouraged oral intake. Remains off IV fluids and diuretics. Check postvoid residual to rule out underlying urinary retention. Check renal ultrasound. 10 units of IV regular insulin with an amp of D50 now. Repeat potassium level this evening. Avoid metformin as GFR less than 30. Avoid nephrotoxins. Hold off on Zestoretic at this time. Repeat electrolytes in the morning. Thank you for the consultation. I will continue to follow the patient with you during his hospital stay.
[2018-10-31] MEDS ORDERED: INSULIN REGULAR 100 UNIT/ML VIAL IV ONE (10:45)
--- NOTE | 2018-10-31 11:04 | P.CRDCN ---
History of Present Illness Consult date: 10/31/18 Requesting physician: Garrett Price Reason for Consult (text): Epigastric discomfort Chief complaint: Weakness, fatigue, nausea and epigastric discomfort History of present illness: This is a pleasant 83-year-old gentleman who follows regularly with Dr. Gentile in the office. He has a known history of coronary artery disease with prior bypass surgery in 1995, hypertension, hyperlipidemia, diabetes, he states that over the past one week or so he's been very weak, he is also been experiencing a sour taste in his mouth with some associated abdominal discomfort. Along with this patient has been increasingly more nauseous, and at times quite dizzy and lightheaded feeling as though he may pass out. He had been trying Maalox at home with no relief in his symptoms, continue to have the sour taste in his mouth with the rest of the symptoms as mentioned and for this reason came to the hospital for further evaluation. Because of how the patient has been feeling he states that he has not been drinking adequate amounts of fluids at home. He was on a diuretic at home in the form of Lasix and Zestoretic. CAT scan of the brain was performed on arrival here which did not reveal any evidence of acute intracranial hemorrhage or midline shift. 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 Chest x-ray on admission showed a new left. Hilar and retrocardiac airspace disease which may represent an early developing pneumonia or atelectasis. EKG showed a normal sinus rhythm with frequent PVCs. An ultrasound of the abdomen and bladder was performed this morning and is yet pending. White Blood cell count was normal, hemoglobin 12.0, platelet count 196. On admission the sodium was 140 with potassium 5.6, BUN 51 and creatinine 2.1, AST and ALT were normal. Troponins negative 3, BNP level 1180. This morning the sodium is 144, potassium 5.5, BUN 46 and creatinine 2.1. Upon review of prior labs back to 2013 patient has had some abnormality and trudi al function, but never to this degree. It appears that his baseline is around 1.2 nephrology has been consulted. Blood pressure 138/70 with a heart rate in the 70s, 95% on room air. Past Medical History Past Medical History: Coronary Artery Disease (CAD), Cancer, Diabetes Mellitus, Hyperlipidemia, Hypertension Additional Past Medical History / Comment(s): colon ca, cataracts, hard of hearing History of Any Multi-Drug Resistant Organisms: None Reported Past Surgical History: Bowel Resection, Coronary Bypass/CABG Additional Past Surgical History / Comment(s): colon ca, hernia repair, triple vessel CABG 1995 Past Anesthesia/Blood Transfusion Reactions: No Reported Reaction Past Psychological History: No Psychological Hx Reported Smoking Status: Never smoker Past Alcohol Use History: None Reported Past Drug Use History: None Reported Medications and Allergies Home Medications Medication Instructions Recorded Confirmed Type Ascorbic Acid [Vitamin C] 1,000 mg PO DAILY 04/03/15 10/30/18 History Aspirin EC [Ecotrin Low Dose] 81 mg PO DAILY 04/03/15 10/30/18 History Atropine Ophth Soln 1% 5Ml [Isopto 2 drops RIGHT EYE DAILY 04/03/15 10/30/18 History Atropine 1% 5Ml] Fenofibrate Nanocrystallized 145 mg PO DAILY 04/03/15 10/30/18 History [Tricor] Ferrous Sulfate [Feosol] 325 mg PO Q48H 04/03/15 10/30/18 History Lisinopril-Hctz 20-25 mg 1 tab PO DAILY 04/03/15 10/30/18 History [Zestoretic 20-25] Metoprolol Tartrate [Lopressor] 50 mg PO DAILY 04/03/15 10/30/18 History Potassium Chloride ER [K-Dur 10] 10 meq PO DAILY 04/03/15 10/30/18 History Propylene Glycol/Peg 400/Pf 1 drop BOTH EYES DAILY PRN 04/03/15 10/30/18 History [Systane 0.3-0.4% Eye Drops] Temazepam [Restoril] 15 mg PO HS PRN 04/03/15 10/30/18 History metFORMIN HCL 500 mg PO AC-SUPPER 04/03/15 10/30/18 History prednisoLONE ACETATE 1% OPHTH 1 drops RIGHT EYE DAILY 04/03/15 10/30/18 History [Pred Forte 1%] sitaGLIPtin [Januvia] 50 mg PO DAILY 04/03/15 10/30/18 History Docusate [Colace] 100 mg PO DAILY PRN 11/01/16 10/30/18 History Magnesium Chelated Zinc 1 tab PO DAILY 11/01/16 10/30/18 History Omeprazole [PriLOSEC] 20 mg PO DAILY PRN 11/01/16 10/30/18 History Cyanocobalamin (Vitamin B-12) 2,500 mcg PO DAILY 05/23/17 10/30/18 History [Vitamin B-12] Fish Oil 360mg 360 mg PO DAILY 01/29/18 10/30/18 History amLODIPine [Norvasc] 5 mg PO DAILY 01/29/18 10/30/18 History Isosorbide Mononitrate ER [Imdur] 30 mg PO DAILY #30 tab.er.24h 01/30/18 10/30/18 Rx Pantoprazole [Protonix] 40 mg PO AC-BRKFST #30 tablet.dr 01/30/18 10/30/18 Rx Atorvastatin [Lipitor] 40 mg PO HS 10/30/18 10/30/18 History Azithromycin [Zithromax Z-pack] See Taper PO DIRECTED 10/30/18 10/30/18 History Furosemide [Lasix] 20 mg PO DAILY 10/30/18 10/30/18 History Meclizine [Antivert] 25 mg PO TID PRN 10/30/18 10/30/18 History Allergies Allergy/AdvReac Type Severity Reaction Status Date / Time fluticasone [From Flonase] AdvReac FAINTING Verified 10/30/18 19:56 Physical Exam Vitals: Vital Signs Temp Pulse Pulse Resp BP BP Pulse Ox 10/31/18 08:35 97.4 F L 70 18 139/76 95 10/31/18 04:00 64 18 130/59 95 10/31/18 00:00 97.6 F 69 19 126/74 98 10/30/18 21:30 69 12 155/82 95 10/30/18 21:00 72 19 158/73 95 10/30/18 20:30 146/80 10/30/18 20:00 73 18 155/80 92 L 10/30/18 19:30 79 24 152/71 93 L 10/30/18 19:28 152/71 93 L 10/30/18 19:15 97.1 F L 88 18 169/88 95 Intake and Output 10/30/18 10/31/18 10/31/18 22:59 06:59 14:59 Intake Total 240 Output Total 400 Balance -160 Intake: Oral 240 Output: Urine 400 Other: Voiding Method Toilet # Voids 1 5 Weight 105.233 kg 102.5 kg PHYSICAL EXAMINATION: GENERAL: 83-year-old gentleman in no acute distress at the time of my examination HEENT: Head is atraumatic, normocephalic. Pupils equal, round. Sclera anicteric. Conjunctiva are clear. Mucous membranes of the mouth are moist. Neck is supple. There is no elevated jugular venous pressure. No carotid bruit is heard. HEART EXAMINATION: R S1 and S2 systolic murmur is heard CHEST EXAMINATION: Lungs are clear to auscultation and precussion. No chest wall tenderness is noted on palpation or with deep breathing. ABDOMEN: Soft, nontender. Bowel sounds are heard. No organomegaly noted. EXTREMITIES: 2+ peripheral pulses with no evidence of peripheral edema and no calf tenderness noted. NEUROLOGIC patient is awake, alert and oriented 3 . . Results 10/31/18 06:34 10/31/18 06:34 Cardiac Enzymes 10/30/18 10/30/18 10/31/18 Range/Units 19:30 19:30 01:48 AST 36 (17-59) U/L Troponin I 0.012 0.016 (0.000-0.034) ng/mL 10/31/18 Range/Units 06:34 AST (17-59) U/L Troponin I 0.012 (0.000-0.034) ng/mL CBC 10/30/18 10/31/18 Range/Units 19:30 06:34 WBC 7.3 5.1 (3.8-10.6) k/uL RBC 4.34 4.25 L (4.30-5.90) m/uL Hgb 12.9 L 12.0 L (13.0-17.5) gm/dL Hct 39.3 39.3 (39.0-53.0) % Plt Count 226 196 (150-450) k/uL Comprehensive Metabolic Panel 10/30/18 10/31/18 Range/Units 19:30 06:34 Sodium 140 144 (137-145) mmol/L Potassium 5.6 H 5.5 H (3.5-5.1) mmol/L Chloride 109 H 108 H (98-107) mmol/L Carbon Dioxide 20 L 26 (22-30) mmol/L BUN 51 H 46 H (9-20) mg/dL Creatinine 2.18 H 2.19 H (0.66-1.25) mg/dL Glucose 127 H 125 H (74-99) mg/dL Calcium 9.6 9.7 (8.4-10.2) mg/dL AST 36 (17-59) U/L ALT 45 (21-72) U/L Alkaline Phosphatase 94 (38-126) U/L Total Protein 7.5 (6.3-8.2) g/dL Albumin 4.4 (3.5-5.0) g/dL Current Medications Generic Name Dose Route Start Last Admin Trade Name Freq PRN Reason Stop Dose Admin Al Hydroxide/Mg Hydroxide 30 ml 10/30/18 19:46 10/30/18 20:03 Maalox PO 30 ml Q4HR PRN Administration GI Upset Amlodipine Besylate 5 mg 10/31/18 09:00 10/31/18 10:23 Norvasc PO 5 mg DAILY MICHAEL Administration Artificial Tears 1 drops 10/31/18 09:00 Artificial Tear Drops BOTH EYES DAILY PRN DRY EYES Ascorbic Acid 1,000 mg 10/31/18 09:00 10/31/18 10:23 Vitamin C PO 1,000 mg DAILY MICHAEL Administration Aspirin 81 mg 10/31/18 09:00 10/31/18 10:22 Aspirin PO 81 mg DAILY MICHAEL Administration Atorvastatin Calcium 40 mg 10/31/18 21:00 Lipitor PO HS MICHAEL Atropine Sulfate 2 drops 10/31/18 09:00 10/31/18 10:23 Isopto Atropine 1% 5ml RIGHT EYE 2 drops DAILY MICHAEL Administration Cyanocobalamin 2,500 mcg 10/31/18 09:00 10/31/18 10:22 Vitamin B-12 PO 2,500 mcg DAILY MICHAEL Administration Docusate Sodium 100 mg 10/31/18 09:00 Colace PO DAILY PRN Constipation Fenofibrate 160 mg 10/31/18 09:00 10/31/18 10:23 Lofibra PO 160 mg DAILY MICHAEL Administration Ferrous Sulfate 325 mg 10/31/18 09:00 10/31/18 10:23 Feosol PO 325 mg Q48H MICHAEL Administration Insulin Aspart 0 unit 10/31/18 07:30 10/31/18 06:33 Novolog SQ Not Given ACHS [facility] Protocol Isosorbide Mononitrate 30 mg 10/31/18 09:00 10/31/18 10:23 Imdur PO 30 mg DAILY MICHAEL Administration Meclizine HCl 25 mg 10/31/18 09:00 10/31/18 10:23 Antivert PO 25 mg TID MICHAEL Administration Metoprolol Tartrate 50 mg 10/31/18 09:00 10/31/18 10:23 Lopressor PO 50 mg DAILY MICHAEL Administration Naloxone HCl 0.2 mg 10/30/18 20:44 Narcan IV Q2M PRN Opioid Reversal Prednisolone Acetate 1 drops 10/31/18 09:00 10/31/18 10:24 Pred Forte 1% RIGHT EYE 1 drops DAILY MICHAEL Administration Temazepam 15 mg 10/30/18 23:10 Restoril PO HS PRN Insomnia Intake and Output 10/30/18 10/31/18 10/31/18 22:59 06:59 14:59 Intake Total 240 Output Total 400 Balance -160 Intake: Oral 240 Output: Urine 400 Other: Voiding Method Toilet # Voids 1 5 Weight 105.233 kg 102.5 kg 10/31/18 06:34 10/31/18 06:34 EKG Interpretations (text) EKG shows a normal sinus rhythm with frequent PVCs Assessment and Plan Plan: Assessment and plan #1 symptoms of weakness with associated nausea and abdominal discomfort with evidence of acute kidney injury. Patient had been taking diuretic as well as Zestoretic at home and had not been drinking enough fluids. #2 chronic kidney disease, baseline creatinine appeared to be a 1.2 on 1.3. #3 known history of coronary artery disease with prior bypass surgery in 1995 #4 diabetes #5 hypertension #6 hyperlipidemia #7 questionable infiltrate on chest x-ray. Plan We will obtain an echocardiogram with Doppler study. Ultrasound of the abdomen and kidneys was performed today. Patient has been encouraged to drink fluids, recommended at this time to be off diuretics and Zestoretic. Further recommendations to follow. DNP note has been reviewed, I agree with a documented findings and plan of care. Patient was seen and examined.
--- NOTE | 2018-10-31 11:23 | US ---
EXAMINATION TYPE: US kidneys/renal and bladder DATE OF EXAM: 10/31/2018 COMPARISON: No recent exams for comparison. CLINICAL HISTORY: renal failure. Hx renal cysts per CT. No pain. EXAM MEASUREMENTS: Right Kidney: 11.3 x 5.0 x 6.2 cm Left Kidney: 11.5 x 5.2 x 5.9 cm Right Kidney: Multiple cystic appearing lesions visualized. Largest measured. Largest mid- 6.1 x 4. 6 x 3.9. Largest lower- 5.8 x 5.7 x 2.4 cm Left Kidney: No hydronephrosis or masses seen Bladder: moderately distended, suboptimal visualization due to bowel gas. Bilateral Jets not seen There is no evidence for hydronephrosis at this point in time. No nephrolithiasis is seen. The urina ry bladder is anechoic. Bilateral ureteral jets are seen. Incidentally noted questionable slightly hypoechoic splenic lesion measuring 3.0 x 2.8 x 3.0 cm. IMPRESSION: 1. Multiple right renal cysts, largest measuring up to 6.1 cm appearing simple and benign. 2. Incidentally noted questionable splenic lesion. Three-phase CT is recommended for further characte rization.
[2018-10-31 11:45] LABS: Glucose,Whole Blood 103 mg/dL (75-99)
--- NOTE | 2018-10-31 13:38 | P.HPIM ---
History of Present Illness H&P Date: 10/31/18 This is an 83-year-old gentleman with history of CABG, CABG, diabetes mellitus, hypertension presented to the ER with complaints of generalized weakness, fatigue, mild exertional shortness of breath ,nausea, mid epigastric abdominal discomfort with sour taste in mouth for over a week. Denies fever or chills. Denies vomiting, diarrhea.EKG reporting normal sinus rhythm with frequent PVCs/bigeminy. Troponins negative 3, BNP 1180. Echo of 2018 reporting EF 45- 50%. BUN 51 Creatinine 2.18, potassium 5.5. UA negative.Received GI cocktail, aspirin, IV fluids calcium gluconate. Chest x-ray reporting left perihilar and left basilar opacity possible early pneumonia, atelectasis-patient reports occ asional cough, nonproductive. Head CT reported no acute intracranial hemorrhage, no midline shift, old lacunar injury of the right external capsule, large left maxillary mucosal cyst of the ethimoid/right maxillary sinuses. Afebrile, normal WBCs. Received Rocephin, Zithromax. Cardiology and nephrology consulted. Review of Systems ROS Statement: Those systems with pertinent positive or pertinent negative responses have been documented in the HPI. ROS Other: All systems not noted in ROS Statement are negative. Past Medical History Past Medical History: Coronary Artery Disease (CAD), Cancer, Diabetes Mellitus, Hyperlipidemia, Hypertension Additional Past Medical History / Comment(s): colon ca, cataracts, hard of hearing History of Any Multi-Drug Resistant Organisms: None Reported Past Surgical History: Bowel Resection, Coronary Bypass/CABG Additional Past Surgical History / Comment(s): colon ca, hernia repair, triple vessel CABG 1995 Past Anesthesia/Blood Transfusion Reactions: No Reported Reaction Past Psychological History: No Psychological Hx Reported Smoking Status: Never smoker Past Alcohol Use History: None Reported Past Drug Use History: None Reported Medications and Allergies Home Medications Medication Instructions Recorded Confirmed Type Ascorbic Acid [Vitamin C] 1,000 mg PO DAILY 04/03/15 10/30/18 History Aspirin EC [Ecotrin Low Dose] 81 mg PO DAILY 04/03/15 10/30/18 History Atropine Ophth Soln 1% 5Ml [Isopto 2 drops RIGHT EYE DAILY 04/03/15 10/30/18 History Atropine 1% 5Ml] Fenofibrate Nanocrystallized 145 mg PO DAILY 04/03/15 10/30/18 History [Tricor] Ferrous Sulfate [Feosol] 325 mg PO Q48H 04/03/15 10/30/18 History Lisinopril-Hctz 20-25 mg 1 tab PO DAILY 04/03/15 10/30/18 History [Zestoretic 20-25] Metoprolol Tartrate [Lopressor] 50 mg PO DAILY 04/03/15 10/30/18 History Potassium Chloride ER [K-Dur 10] 10 meq PO DAILY 04/03/15 10/30/18 History Propylene Glycol/Peg 400/Pf 1 drop BOTH EYES DAILY PRN 04/03/15 10/30/18 History [Systane 0.3-0.4% Eye Drops] Temazepam [Restoril] 15 mg PO HS PRN 04/03/15 10/30/18 History metFORMIN HCL 500 mg PO AC-SUPPER 04/03/15 10/30/18 History prednisoLONE ACETATE 1% OPHTH 1 drops RIGHT EYE DAILY 04/03/15 10/30/18 History [Pred Forte 1%] sitaGLIPtin [Januvia] 50 mg PO DAILY 04/03/15 10/30/18 History Docusate [Colace] 100 mg PO DAILY PRN 11/01/16 10/30/18 History Magnesium Chelated Zinc 1 tab PO DAILY 11/01/16 10/30/18 History Omeprazole [PriLOSEC] 20 mg PO DAILY PRN 11/01/16 10/30/18 History Cyanocobalamin (Vitamin B-12) 2,500 mcg PO DAILY 05/23/17 10/30/18 History [Vitamin B-12] Fish Oil 360mg 360 mg PO DAILY 01/29/18 10/30/18 History amLODIPine [Norvasc] 5 mg PO DAILY 01/29/18 10/30/18 History Isosorbide Mononitrate ER [Imdur] 30 mg PO DAILY #30 tab.er.24h 01/30/18 10/30/18 Rx Pantoprazole [Protonix] 40 mg PO AC-BRKFST #30 tablet. 01/30/18 10/30/18 Rx Atorvastatin [Lipitor] 40 mg PO HS 10/30/18 10/30/18 History Azithromycin [Zithromax Z-pack] See Taper PO DIRECTED 10/30/18 10/30/18 History Furosemide [Lasix] 20 mg PO DAILY 10/30/18 10/30/18 History Meclizine [Antivert] 25 mg PO TID PRN 10/30/18 10/30/18 History Allergies Allergy/AdvReac Type Severity Reaction Status Date / Time fluticasone [From Flonase] AdvReac FAINTING Verified 10/30/18 19:56 Physical Exam Vitals: Vital Signs Temp Pulse Pulse Resp BP BP Pulse Ox 10/31/18 08:35 97.4 F L 70 18 139/76 95 10/31/18 04:00 64 18 130/59 95 10/31/18 00:00 97.6 F 69 19 126/74 98 10/30/18 21:30 69 12 155/82 95 10/30/18 21:00 72 19 158/73 95 10/30/18 20:30 146/80 10/30/18 20:00 73 18 155/80 92 L 10/30/18 19:30 79 24 152/71 93 L 10/30/18 19:28 152/71 93 L 10/30/18 19:15 97.1 F L 88 18 169/88 95 Intake and Output 10/30/18 10/31/18 10/31/18 22:59 06:59 14:59 Intake Total 240 Balance 240 Intake: Oral 240 Other: Voiding Method Toilet # Voids 1 5 Weight 105.233 kg 102.5 kg PHYSICAL EXAM: VITAL SIGNS: As above GENERAL: Sitting up in bed, no acute distress HEENT: Head atraumatic ,Conjunctivae normal. Oral mucosa moist NECK: No JVD. No thyroid enlargement. No LNs CARDIOVASCULAR: S1, S2 regular.systolic murmur, no gallops, no rubs. RESPIRATION: Breath sounds diminished in the bases. No rhonchi or crackles. No wheezing, No bronchial breathing. ABDOMEN: Soft, nontender . No guarding. no masses palpable. Bowel sounds heard. LEGS: No edema. no swelling PSYCHIATRY: Alert and oriented -3, mood and affect normal. NERVOUS SYSTEM: Cranial N 2-12 grossly normal. Moves all 4 limbs. Diffuse weakness No focal deficits. Strength and sensation grossly intact.. Skin: no lesions, no rash Lymphatic system. No LN neck axilla or groin. Results CBC & Chem 7: 10/31/18 06:34 10/31/18 06:34 Labs: Abnormal Lab Results - Last 24 Hours (Table) 10/30/18 10/30/18 10/30/18 Range/Units 19:30 19:30 20:35 RBC (4.30-5.90) m/uL Hgb 12.9 L (13.0-17.5) gm/dL MCHC (31.0-37.0) g/dL RDW 15.9 H (11.5-15.5) % Lymphocytes # (1.0-4.8) k/uL Potassium 5.6 H (3.5-5.1) mmol/L Chloride 109 H (98-107) mmol/L Carbon Dioxide 20 L (22-30) mmol/L BUN 51 H (9-20) mg/dL Creatinine 2.18 H (0.66-1.25) mg/dL Glucose 127 H (74-99) mg/dL POC Glucose (mg/dL) (75-99) mg/dL Urine Protein 1+ H (Negative) Urine Mucus Rare H (None) /hpf U Random Total Protein (<12) mg/dL 10/30/18 10/30/18 10/31/18 Range/Units 20:35 22:45 06:23 RBC (4.30-5.90) m/uL Hgb (13.0-17.5) gm/dL MCHC (31.0-37.0) g/dL RDW (11.5-15.5) % Lymphocytes # (1.0-4.8) k/uL Potassium (3.5-5.1) mmol/L Chloride (98-107) mmol/L Carbon Dioxide (22-30) mmol/L BUN (9-20) mg/dL Creatinine (0.66-1.25) mg/dL Glucose (74-99) mg/dL POC Glucose (mg/dL) 123 H 124 H (75-99) mg/dL Urine Protein (Negative) Urine Mucus (None) /hpf U Random Total Protein 89 H (<12) mg/dL 10/31/18 10/31/18 Range/Units 06:34 06:34 RBC 4.25 L (4.30-5.90) m/uL Hgb 12.0 L (13.0-17.5) gm/dL MCHC 30.5 L (31.0-37.0) g/dL RDW (11.5-15.5) % Lymphocytes # 0.9 L (1.0-4.8) k/uL Potassium 5.5 H (3.5-5.1) mmol/L Chloride 108 H (98-107) mmol/L Carbon Dioxide (22-30) mmol/L BUN 46 H (9-20) mg/dL Creatinine 2.19 H (0.66-1.25) mg/dL Glucose 125 H (74-99) mg/dL POC Glucose (mg/dL) (75-99) mg/dL Urine Protein (Negative) Urine Mucus (None) /hpf U Random Total Protein (<12) mg/dL Thrombosis Risk Factor Assmnt - Choose All That Apply Any of the Below Risk Factors Present?: Yes Each Factor Represents 1 point: Obesity (BMI >25), Swollen legs (current) Other Risk Factors: Yes Each Risk Factor Represents 3 Points: Age 75 years or older Other congenital or acquired thrombophilia - If yes, enter type in comment: No Thrombosis Risk Factor Assessment Total Risk Factor Score: 5 Thrombosis Risk Factor Assessment Level: High Risk Assessment and Plan Assessment: -Acute renal failure, prerenal in a patient on metformin and Zestoretic -placed on hold, renal ultrasound ordered. Ruling out urinary retention, obstructive uropathy. -Chronic kidney disease, stage III secondary to diabetes mellitus, baseline 1.3- 1.5 -Hyperkalemia secondary to acute renal failure -CAD with history of CABG -Diabetes mellitus -Possible early pneumonia, possible atelectasis -Hypertension -Hyperlipidemia Plan: Continue on current medication regime ,monitoring and symptomatic jeffery tment. Home meds have been reviewed and resumed with metformin and Zestoretic placed on hold. Renal ultrasound ordered. Echo ordered. D50/rectal insulin for hyperkalemia with repeat electrolytes this afternoon. Close monitoring of electrolytes and renal function with repeat labs ordered for a.m. GI and DVT prophylaxis in place. Discharge planning in progress for tomorrow. The impression and plan of care has been dictated as directed. : I performed a history and examination of this patient, discussed the same with the dictator. I agree with the dictator's note ,documented as a scribe. Any additional findings or plans will be noted.
[2018-10-31 14:21] LABS: Hemoglobin A1C 7.7 % (4.0-6.0)
[2018-10-31 16:54] LABS: Glucose,Whole Blood 117 mg/dL (75-99)
[2018-10-31] MEDS: PANTOPRAZOLE 40 MG/10 ML VIAL IVP SCH (18:15)
[2018-10-31 20:42] LABS: Glucose,Whole Blood 130 mg/dL (75-99)
[2018-10-31] MEDS: ATORVASTATIN 40 MG TAB PO SCH (21:21)
[2018-10-31] MEDS ORDERED: ACETAMINOPHEN TAB 500 MG TAB PO PRN (22:21)
[2018-10-31 22:43] LABS: Magnesium 2.3 mg/dL (1.6-2.3); Potassium 5.3 mmol/L (3.5-5.1)
[2018-11-01] MEDS ORDERED: FUROSEMIDE 10 MG/ML 10 ML VIAL IV STA (06:10)
[2018-11-01 06:30] LABS: Glucose,Whole Blood 116 mg/dL (75-99)
[2018-11-01] MEDS: INSULIN ASPART (NovoLOG) 100 UNIT/ML VIAL SQ SCH ×4 (06:31→21:13)
[2018-11-01 06:42] LABS: Anisocytosis Slight; Basophils # (A) 0.1 k/uL (0-0.2); Basophils % (A) 1 %; Eosinophils # (A) 0.7 k/uL (0-0.7); Eosinophils % (A) 11 %; HCT 39.5 % (39.0-53.0); HGB 12.5 gm/dL (13.0-17.5); Hypochromasia Slight; Lymphocytes # (A) 1.2 k/uL (1.0-4.8); Lymphocytes % (A) 19 %; MCH 29.1 pg (25.0-35.0); MCHC 31.8 g/dL (31.0-37.0); MCV 91.5 fL (80.0-100.0); Mean Platelet Volume 7.8; Monocytes # (A) 0.5 k/uL (0-1.0); Monocytes % (A) 8 %; Neutrophils # (A) 3.7 k/uL (1.3-7.7); Neutrophils % (A) 58 %; Platelet Count 199 k/uL (150-450); RBC 4.31 m/uL (4.30-5.90); RDW 16.1 % (11.5-15.5); WBC 6.4 k/uL (3.8-10.6)
[2018-11-01 06:59] LABS: Calcium 9.7 mg/dL (8.4-10.2); Potassium 4.9 mmol/L (3.5-5.1)
[2018-11-01] MEDS: prednisoLONE ACETATE 1% OPHTH DROPS 5 ML BTL RIGHT EYE SCH (09:00)
[2018-11-01] MEDS ORDERED: ESCITALOPRAM 10 MG TAB PO SCH (09:00)
--- NOTE | 2018-11-01 09:04 | CT ---
EXAMINATION TYPE: CT abdomen wo con DATE OF EXAM: 11/01/2018 COMPARISON: Renal ultrasound dated 10/31/2018 HISTORY: LUQ pain CT DLP: 714 mGycm Automated exposure control for dose reduction was used. TECHNIQUE: Helical acquisition of images was performed from the lung bases through the top of iliac crest to include entire abdomen. CONTRAST: Performed without Oral Contrast and without IV contrast. FINDINGS: LUNG BASES: Multifocal bibasilar subsegmental atelectasis is most pronounced within the lingula altho ugh appears hyperdense and is not favored to represent pneumonia. LIVER/GB: Hepatic parenchyma is diffusely hypoattenuated in comparison to that of the spleen, most co mmonly seen in hepatic steatosis. This finding limits evaluation for hepatic masses. No gross evidenc e of hepatic mass is seen. No intrahepatic biliary ductal dilatation. Numerous gallstones layer in th e gallbladder body and neck. PANCREAS: No significant abnormality is seen. SPLEEN: The previously questioned splenic lesion seen on the prior ultrasound of 10/31/2018 is not seen without contrast. ADRENALS: No significant abnormality is seen. KIDNEYS: As seen on the prior ultrasound there are multiple bilateral renal cysts the largest in the inferior pole contains a thin septation with internal calcifications. This extends into the inferior renal sinus and measures up to 5.6 cm. Another large 5.1 cm right renal cyst is seen in the mid pole with few punctate peripheral calcifications along the rim. No hydronephrosis of either kidney. Mild n onspecific bilateral perinephric fat stranding. No nephrolithiasis is seen.: BOWEL: Very small hiatal hernia. Moderate degree fecal stasis without dilated large or small bowel. Evidence of prior hernia repair in the ventral abdomen. LYMPH NODES: No greater than 1 cm short axis lymph node is seen in the abdomen. OSSEOUS STRUCTURES: Moderate degenerative disc disease of the visualized spine with bridging anterio r osteophytes suggesting diffuse idiopathic skeletal hyperostosis. FREE AIR: No free air is visualized. OTHER: Moderate to severe atherosclerosis is seen of the abdominal aorta and its branches. IMPRESSION: 1. THE PREVIOUSLY SEEN SPLENIC LESION ON THE ULTRASOUND OF 10/31/2018 IS NOT SEEN WITHOUT CONTRAST. 2. LEFT BASILAR AIRSPACE DISEASE LIKELY REPRESENTS MULTIFOCAL ATELECTASIS MOST PRONOUNCED IN THE LING RIZWAN. 3. HEPATIC STEATOSIS AND NUMEROUS GALLSTONES ARE SEEN WITHOUT RIGHT UPPER QUADRANT FAT STRANDING. 4. REDEMONSTRATION OF MINIMALLY COMPLEX RENAL CYSTS. GIVEN THE VERY MINIMAL COMPLEXITY WITH SEPTATION OF THE RIGHT INFERIOR POLE LESION AND CALCIFICATIONS ALONG THE SEPTATION AND RIM 6 MONTH FOLLOW-UP C T IS RECOMMENDED IF CONTRAST CANNOT BE GIVEN.
--- NOTE | 2018-11-01 09:32 | P.PN ---
Subjective Progress Note Date: 11/01/18 This is an 83-year-old gentleman with history of CABG, CABG, diabetes mellitus, hypertension presented to the ER with complaints of generalized weakness, fatigue, mild exertional shortness of breath ,nausea, mid epigastric abdominal discomfort with sour taste in mouth for over a week. Denies fever or chills. Denies vomiting, diarrhea.EKG reporting normal sinus rhythm with frequent PVCs/bigeminy. Troponins negative 3, BNP 1180. Echo of 2018 reporting EF 45- 50%. BUN 51 Creatinine 2.18, potassium 5.5. UA negative.Received GI cocktail, aspirin, IV fluids calcium gluconate. Chest x-ray reporting left perihilar and left basilar opacity possible early pneumonia, atelectasis-patient reports occasional cough, nonproductive. Head CT reported no acute intracranial hemorrhage, no midline shift, old lacunar injury of the right external capsule, large left maxillary mucosal cyst of the ethimoid/right maxillary sinuses. Afebrile, normal WBCs. Received Rocephin, Zithromax. Cardiology and nephrology consulted. 11/01/18 Complained of left hand arthritis pain throughout the night,relief with Tylenol. Creatinine 2.24 , potassium improved, 4.9.Depressed this morning, not eating, related to his concern over his kidney function as well as personal stressors. Blood sugars controlled. Renal ultrasound reporting multiple right renal cysts, measuring up to 6.1 cm, simple and benign appearance, incidental finding of splenic hypoechoic lesion measuring 3.0 x 2.8 x 3.0 cm. Objective - Vital Signs Vital signs: Vital Signs Temp 97.5 F L 11/01/18 04:00 Pulse 71 11/01/18 04:00 Resp 18 11/01/18 04:00 BP 140/70 11/01/18 04:00 Pulse Ox 93 L 11/01/18 04:00 Intake & Output 10/31/18 11/01/18 11/01/18 18:59 06:59 18:59 Intake Total 740 10 180 Output Total 400 400 Balance 340 -390 180 Weight 66.5 kg Intake: IV 10 0.9 10 Oral 740 180 Output: Urine 400 400 Other: Voiding Method Toilet Toilet - Exam VITAL SIGNS: As above GENERAL: Sitting up in bed, no acute distress HEENT: Head atraumatic ,Conjunctivae normal. Oral mucosa moist NECK: No JVD. No thyroid enlargement. No LNs CARDIOVASCULAR: S1, S2 regular.systolic murmur, no gallops, no rubs. RESPIRATION: Breath sounds diminished in the bases. No rhonchi or crackles. No wheezing, ABDOMEN: Soft, nontender . No guarding. no masses palpable. Bowel sounds heard. LEGS: No edema. no swelling PSYCHIATRY: Alert and oriented -3, mood and affect depressed appearing NERVOUS SYSTEM: Cranial N 2-12 grossly normal. Moves all 4 limbs. Diffuse weakness No focal deficits. Strength and sensation grossly intact.. Skin: no lesions, no rash - Labs CBC & Chem 7: 11/01/18 06:19 11/01/18 06:19 Labs: Abnormal Lab Results - Last 24 Hours (Table) 10/31/18 10/31/18 10/31/18 Range/Units 06:34 11:43 15:08 Hgb (13.0-17.5) gm/dL RDW (11.5-15.5) % Potassium 5.3 H (3.5-5.1) mmol/L BUN (9-20) mg/dL Creatinine (0.66-1.25) mg/dL Glucose (74-99) mg/dL POC Glucose (mg/dL) 103 H (75-99) mg/dL Hemoglobin A1c 7.7 H (4.0-6.0) % 10/31/18 10/31/18 10/31/18 Range/Units 16:53 20:40 22:25 Hgb (13.0-17.5) gm/dL RDW (11.5-15.5) % Potassium 5.3 H (3.5-5.1) mmol/L BUN (9-20) mg/dL Creatinine (0.66-1.25) mg/dL Glucose (74-99) mg/dL POC Glucose (mg/dL) 117 H 130 H (75-99) mg/dL Hemoglobin A1c (4.0-6.0) % 11/01/18 11/01/18 11/01/18 Range/Units 06:19 06:19 06:28 Hgb 12.5 L (13.0-17.5) gm/dL RDW 16.1 H (11.5-15.5) % Potassium (3.5-5.1) mmol/L BUN 51 H (9-20) mg/dL Creatinine 2.24 H (0.66-1.25) mg/dL Glucose 118 H (74-99) mg/dL POC Glucose (mg/dL) 116 H (75-99) mg/dL Hemoglobin A1c (4.0-6.0) % Assessment and Plan Assessment: -Acute renal failure, prerenal in a patient on metformin and Zestoretic -placed on hold, Ruling out urinary retention, obstructive uropathy. -Chronic kidney disease, stage III secondary to diabetes mellitus, baseline 1.3- 1.5 -Hyperkalemia secondary to acute renal failure, resolved -CAD with history of CABG -Diabetes mellitus -Possible early pneumonia, possible atelectasis -Hypertension -Hyperlipidemia -Depression -Multiple simple renal cysts -Splenic lesion, incidental finding on ultrasound, workup in progress Plan: Continue on current medication regime ,monitoring and symptomatic treatment. CT ordered to further evaluate splenic lesion.Lexipro ordered .Tylenol for pain.Close monitoring of electrolytes and renal function with repeat labs ordered for a.m. Discharge planning in progress. The impression and plan of care has been dictated as directed. : I performed a history and examination of this patient, discussed the same with the dictator. I agree with the dictator's note ,documented as a scribe. Any additional findings or plans will be noted.
[2018-11-01] MEDS ORDERED: FUROSEMIDE 10 MG/ML 4 ML VIAL IV STA (09:37)
[2018-11-01] MEDS: METOPROLOL TARTRATE 50 MG TAB PO SCH (09:51)
[2018-11-01] MEDS: CYANOCOBALAMIN 500 MCG TAB PO SCH (09:52)
[2018-11-01] MEDS: ASPIRIN 81 MG PO SCH (09:52)
[2018-11-01] MEDS: amLODIPine 5 MG TAB PO SCH (09:52)
[2018-11-01] MEDS: MECLIZINE 25 MG TAB PO SCH ×3 (09:53→20:30)
[2018-11-01] MEDS: ISOSORBIDE MONONITRATE ER 30 MG TAB.ER.24H PO SCH (09:53)
[2018-11-01] MEDS: PANTOPRAZOLE 40 MG/10 ML VIAL IVP SCH (09:53)
[2018-11-01] MEDS: FENOFIBRATE 160 MG TAB PO SCH (09:53)
[2018-11-01] MEDS: ASCORBIC ACID 500 MG TAB PO SCH (09:53)
[2018-11-01] MEDS: ATROPINE OPHTH SOLN 1% 5ML BTL RIGHT EYE SCH (10:03)
--- NOTE | 2018-11-01 10:04 | ECHOF ---
Referral Reason:sob MEASUREMENTS -------- HEIGHT: 182.9 cm WEIGHT: 102.1 kg BP: 139/76 RVIDd: 4.0 cm (< 3.3) IVSd: 1.1 cm (0.6 - 1.1) LVIDd: 4.3 cm (3.9 - 5.3) LVPWd: 1.2 cm (0.6 - 1.1) IVSs: 1.7 cm LVIDs: 2.5 cm LVPWs: 1.7 cm Ao Diam: 3.1 cm (2.0 - 3.7) AV Cusp: 1.2 cm (1.5 - 2.6) LA Diam: 4.4 cm (2.7 - 3.8) EPSS: 0.5 cm MV E Hoang: 1.07 m/s MV DecT: 297 ms MV A Hoang: 0.78 m/s MV E/A Ratio: 1.37 AV maxP.84 mmHg AV meanP.36 mmHg RAP: 5.00 mmHg RVSP: 19.48 mmHg MV EF SLOPE: 106.52 mm/s (70 - 150) MV EXCURSION: 1.23 cm (> 18.000) FINDINGS -------- Sinus rhythm with extra systolic beats. This was a technically good study. The left ventricular size is normal. There is mild concentric left ventricular hypertrophy. Overa ll left ventricular systolic function is normal with, an EF between 55 - 60 %. The right ventricle is severely enlarged. The left atrium is mildly dilated. The right atrial size is normal. Aortic valve is trileaflet and is mildly thickened. There is mild aortic stenosis present. Peak/m stephanie gradient across the valve is 24.84mmHg / 15.36mmHg. The mitral valve leaflets are mildly thickened. Mild mitral regurgitation is present. Mild tricuspid regurgitation present. The right ventricular systolic pressure, as measured by Doppl er, is 19.48mmHg. Trace/mild (physiologic) pulmonic regurgitation. The aortic root size is normal. The inferior vena cava was not well visualized. There is no pericardial effusion. CONCLUSIONS -------- 1. Sinus rhythm with extra systolic beats. 2. This was a technically good study. 3. The left ventricular size is normal. 4. There is mild concentric left ventricular hypertrophy. 5. Overall left ventricular systolic function is normal with, an EF between 55 - 60 %. 6. The right ventricle is severely enlarged. 7. The left atrium is mildly dilated. 8. The right atrial size is normal. 9. Aortic valve is trileaflet and is mildly thickened. 10. There is mild aortic stenosis present. 11. Peak/mean gradient across the valve is 24.84mmHg / 15.36mmHg. 12. The mitral valve leaflets are mildly thickened. 13. Mild mitral regurgitation is present. 14. Mild tricuspid regurgitation present. 15. The right ventricular systolic pressure, as measured by Doppler, is 19.48mmHg. 16. Trace/mild (physiologic) pulmonic regurgitation. 17. The aortic root size is normal. 18. The inferior vena cava was not well visualized. 19. There is no pericardial effusion. ILLUMINATING ENGINEER: Angelica Lopez RDCS
--- NOTE | 2018-11-01 10:33 | P.PN ---
Subjective Patient is seen in follow-up for acute kidney injury on chronic kidney disease. Renal function is essentially stable with creatinine at 2.24 today. Patient has chronic kidney disease stage III with baseline creatinine in the range of 1.3- 1.5 most likely secondary to diabetic kidney disease. Currently resting in bed. He has been voiding. No evidence of urinary retention. No vomiting or diarrhea. Vital signs are stable. General: The patient appeared well nourished and normally developed. HEENT: Head exam is unremarkable. Neck is without jugular venous distension. LUNGS: Lungs are clear to auscultation and percussion. Breath sounds decreased. HEART: Rate and Rhythm are regular. First and second heart sounds normal. No murmurs, rubs or gallops. ABDOMEN: Abdominal exam reveals normal bowel sounds. Non-tender and non- distended. No evidence of peritonitis. EXTREMITITES: No clubbing, cyanosis, or edema. Objective - Vital Signs Vital signs: Vital Signs Temp 97.5 F L 11/01/18 04:00 Pulse 71 11/01/18 04:00 Resp 18 11/01/18 04:00 BP 140/70 11/01/18 04:00 Pulse Ox 93 L 11/01/18 04:00 Intake & Output 10/31/18 11/01/18 11/01/18 18:59 06:59 18:59 Intake Total 740 10 180 Output Total 400 400 300 Balance 340 -390 -120 Weight 66.5 kg Intake: IV 10 0.9 10 Oral 740 180 Output: Urine 400 400 300 Other: Voiding Method Toilet Toilet - Labs CBC & Chem 7: 11/01/18 06:19 11/01/18 06:19 Labs: Abnormal Lab Results - Last 24 Hours (Table) 10/31/18 10/31/18 10/31/18 Range/Units 06:34 11:43 15:08 Hgb (13.0-17.5) gm/dL RDW (11.5-15.5) % Potassium 5.3 H (3.5-5.1) mmol/L BUN (9-20) mg/dL Creatinine (0.66-1.25) mg/dL Glucose (74-99) mg/dL POC Glucose (mg/dL) 103 H (75-99) mg/dL Hemoglobin A1c 7.7 H (4.0-6.0) % 10/31/18 10/31/18 10/31/18 Range/Units 16:53 20:40 22:25 Hgb (13.0-17.5) gm/dL RDW (11.5-15.5) % Potassium 5.3 H (3.5-5.1) mmol/L BUN (9-20) mg/dL Creatinine (0.66-1.25) mg/dL Glucose (74-99) mg/dL POC Glucose (mg/dL) 117 H 130 H (75-99) mg/dL Hemoglobin A1c (4.0-6.0) % 11/01/18 11/01/18 11/01/18 Range/Units 06:19 06:19 06:28 Hgb 12.5 L (13.0-17.5) gm/dL RDW 16.1 H (11.5-15.5) % Potassium (3.5-5.1) mmol/L BUN 51 H (9-20) mg/dL Creatinine 2.24 H (0.66-1.25) mg/dL Glucose 118 H (74-99) mg/dL POC Glucose (mg/dL) 116 H (75-99) mg/dL Hemoglobin A1c (4.0-6.0) % Assessment and Plan Plan: Assessment: 1. Acute kidney injury. Etiology is unclear. No evidence of urinary retention or obstructive uropathy. Renal function stable. Creatinine 2.24 today. Patient does have sub-nephrotic range proteinuria. Will rule out GN. 2. Chronic kidney disease stage III most likely secondary to diabetic kidney disease with baseline creatinine in the range of 1.3-1.5. Patient does not follow with fowl blood tester outpatient. 3. Hyperkalemia secondary to acute kidney injury as well as potassium supplementation and lisinopril that he was taking. Better. 4. Diabetes mellitus. 5. Hypertension with chronic kidney disease. Controlled. 6. Possible pneumonia. 7. Complex renal cysts. This will need to be followed outpatient. 8. Coronary artery disease status post CABG. Plan: Lasix 40 mg IV once today. Echocardiogram revealed preserved ejection fraction. Check serologies. Repeat electrolytes in the morning.
[2018-11-01 11:42] LABS: Glucose,Whole Blood 129 mg/dL (75-99)
[2018-11-01] MEDS ORDERED: MECLIZINE 25 MG TAB ONE (15:25)
[2018-11-01] MEDS: METOPROLOL TARTRATE 25 MG TAB PO SCH ×2 (16:52→20:30)
[2018-11-01 17:00] LABS: Glucose,Whole Blood 126 mg/dL (75-99)
[2018-11-01 18:09] LABS: DNA Double-Stranded Indetermin (NEGATIVE)
[2018-11-01] MEDS: ATORVASTATIN 40 MG TAB PO SCH (20:30)
[2018-11-01 20:49] LABS: Hepatitis A Antibody IgM Non-Reactive (Non-Reactive); Hepatitis B Core IgM Non-Reactive (Non-Reactive)
[2018-11-01 20:50] LABS: Glucose,Whole Blood 137 mg/dL (75-99)
[2018-11-01] MEDS ORDERED: METOPROLOL TARTRATE 25 MG TAB PO SCH (22:00)
[2018-11-01] MEDS ORDERED: AMIODARONE 360 MG in DEXTROSE 5% IN WATER 200 ML IV ONE ×2 (23:02)
[2018-11-01] MEDS ORDERED: DEXTROSE 5% IN WATER 100 ML with AMIODARONE 150 MG IV ONE (23:02)
[2018-11-02 00:49] LABS: Glucose,Whole Blood 219 mg/dL (75-99)
[2018-11-02] MEDS ORDERED: DEXTROSE 5% IN WATER 100 ML with AMIODARONE 150 MG IV PRN (03:18)
[2018-11-02] MEDS ORDERED: LIDOCAINE 2% SYG (PF) 100 MG/5 ML IV PRN (03:44)
[2018-11-02 05:36] LABS: Calcium 9.6 mg/dL (8.4-10.2); Magnesium 2.1 mg/dL (1.6-2.3); Potassium 4.8 mmol/L (3.5-5.1)
[2018-11-02] MEDS: AMIODARONE 300 MG in DEXTROSE 5% IN WATER 250 ML IV SCH ×6 (06:20→16:41)
[2018-11-02 06:50] LABS: Glucose,Whole Blood 131 mg/dL (75-99)
[2018-11-02] MEDS: INSULIN ASPART (NovoLOG) 100 UNIT/ML VIAL SQ SCH ×3 (07:17→18:18)
[2018-11-02 07:43] LABS: Basophils # (A) 0.1 k/uL (0-0.2); Basophils % (A) 1 %; Eosinophils # (A) 0.7 k/uL (0-0.7); Eosinophils % (A) 8 %; HCT 39.7 % (39.0-53.0); HGB 12.3 gm/dL (13.0-17.5); Hypochromasia Slight; Lymphocytes # (A) 1.1 k/uL (1.0-4.8); Lymphocytes % (A) 14 %; MCH 28.6 pg (25.0-35.0); MCHC 30.9 g/dL (31.0-37.0); MCV 92.5 fL (80.0-100.0); Mean Platelet Volume 7.4; Monocytes # (A) 0.7 k/uL (0-1.0); Monocytes % (A) 9 %; Neutrophils # (A) 5.2 k/uL (1.3-7.7); Neutrophils % (A) 66 %; Platelet Count 215 k/uL (150-450); RBC 4.29 m/uL (4.30-5.90); RDW 15.7 % (11.5-15.5); WBC 7.9 k/uL (3.8-10.6)
[2018-11-02] MEDS: FERROUS SULFATE 325 MG TAB PO SCH (10:11)
[2018-11-02] MEDS: METOPROLOL TARTRATE 25 MG TAB PO SCH ×2 (10:12→16:49)
[2018-11-02] MEDS: CYANOCOBALAMIN 500 MCG TAB PO SCH (10:12)
[2018-11-02] MEDS: ASCORBIC ACID 500 MG TAB PO SCH (10:12)
[2018-11-02] MEDS: ASPIRIN 81 MG PO SCH (10:12)
[2018-11-02] MEDS: PANTOPRAZOLE 40 MG TABLET PO SCH (10:16)
[2018-11-02] MEDS: ISOSORBIDE MONONITRATE ER 30 MG TAB.ER.24H PO SCH (10:16)
[2018-11-02] MEDS: MECLIZINE 25 MG TAB PO SCH ×2 (11:34→16:53)
[2018-11-02] MEDS: FENOFIBRATE 160 MG TAB PO SCH (11:34)
[2018-11-02 12:09] LABS: Glucose,Whole Blood 122 mg/dL (75-99)
--- NOTE | 2018-11-02 13:18 | P.CNPUL ---
History of Present Illness Consult date: 11/02/18 Reason for consult: dyspnea Chief complaint: Monomorphic ventricular tachycardia History of present illness: This is an 83-year-old gentleman with history of CABG, CABG, diabetes mellitus, hypertension presented to the ER with complaints of generalized weakness, fatigue, mild exertional shortness of breath ,nausea, mid epigastric abdominal discomfort with sour taste in mouth for over a week. Denies fever or chills. Denies vomiting, diarrhea.EKG reporting normal sinus rhythm with frequent PVCs/bigeminy. Troponins negative 3, BNP 1180. Echo of 2018 reporting EF 45- 50%. BUN 51 Creatinine 2.18, potassium 5.5. UA negative.Received GI cocktail, aspirin, IV fluids calcium gluconate. Chest x-ray reporting left perihilar and left basilar opacity possible early pneumonia, atelectasis-patient reports occasional cough, nonproductive. Head CT reported no acute intracranial hemorrhage, no midline shift, old lacunar injury of the right external capsule, large left maxillary mucosal cyst of the ethimoid/right maxillary sinuses. Afebrile, normal WBCs. Received Rocephin, Zithromax, patient was admitted on medical floor, where he was found to have runs of ventricular tachycardia with the persistent ventricular tachycardia monomorphic require admission into the ICU patient was started on amiodarone drip thoughts were compared to the contemplated about cardioversion reverted back with amiodarone drip currently he is mildly short of breath denies any cough or sputum production denies any chest pain, his echocardiogram revealed ejection fraction of 55-60% Review of Systems All systems: negative Past Medical History Past Medical History: Coronary Artery Disease (CAD), Cancer, Diabetes Mellitus, Hyperlipidemia, Hypertension Additional Past Medical History / Comment(s): colon ca, cataracts, hard of he aring History of Any Multi-Drug Resistant Organisms: None Reported Past Surgical History: Bowel Resection, Coronary Bypass/CABG Additional Past Surgical History / Comment(s): colon ca, hernia repair, triple vessel CABG 1995 Past Anesthesia/Blood Transfusion Reactions: No Reported Reaction Past Psychological History: No Psychological Hx Reported Smoking Status: Never smoker Past Alcohol Use History: None Reported Past Drug Use History: None Reported Medications and Allergies Home Medications Medication Instructions Recorded Confirmed Type Ascorbic Acid [Vitamin C] 1,000 mg PO DAILY 04/03/15 10/30/18 History Aspirin EC [Ecotrin Low Dose] 81 mg PO DAILY 04/03/15 10/30/18 History Atropine Ophth Soln 1% 5Ml [Isopto 2 drops RIGHT EYE DAILY 04/03/15 10/30/18 History Atropine 1% 5Ml] Fenofibrate Nanocrystallized 145 mg PO DAILY 04/03/15 10/30/18 History [Tricor] Ferrous Sulfate [Feosol] 325 mg PO Q48H 04/03/15 10/30/18 History Lisinopril-Hctz 20-25 mg 1 tab PO DAILY 04/03/15 10/30/18 History [Zestoretic 20-25] Metoprolol Tartrate [Lopressor] 50 mg PO DAILY 04/03/15 10/30/18 History Potassium Chloride ER [K-Dur 10] 10 meq PO DAILY 04/03/15 10/30/18 History Propylene Glycol/Peg 400/Pf 1 drop BOTH EYES DAILY PRN 04/03/15 10/30/18 History [Systane 0.3-0.4% Eye Drops] Temazepam [Restoril] 15 mg PO HS PRN 04/03/15 10/30/18 History metFORMIN HCL 500 mg PO AC-SUPPER 04/03/15 10/30/18 History prednisoLONE ACETATE 1% OPHTH 1 drops RIGHT EYE DAILY 04/03/15 10/30/18 History [Pred Forte 1%] sitaGLIPtin [Januvia] 50 mg PO DAILY 04/03/15 10/30/18 History Docusate [Colace] 100 mg PO DAILY PRN 11/01/16 10/30/18 History Magnesium Chelated Zinc 1 tab PO DAILY 11/01/16 10/30/18 History Omeprazole [PriLOSEC] 20 mg PO DAILY PRN 11/01/16 10/30/18 History Cyanocobalamin (Vitamin B-12) 2,500 mcg PO DAILY 05/23/17 10/30/18 History [Vitamin B-12] Fish Oil 360mg 360 mg PO DAILY 01/29/18 10/30/18 History amLODIPine [Norvasc] 5 mg PO DAILY 01/29/18 10/30/18 History Isosorbide Mononitrate ER [Imdur] 30 mg PO DAILY #30 tab.er.24h 01/30/18 10/30/18 Rx Pantoprazole [Protonix] 40 mg PO AC-BRKFST #30 tablet. 01/30/18 10/30/18 Rx Atorvastatin [Lipitor] 40 mg PO HS 10/30/18 10/30/18 History Azithromycin [Zithromax Z-pack] See Taper PO DIRECTED 10/30/18 10/30/18 History Furosemide [Lasix] 20 mg PO DAILY 10/30/18 10/30/18 History Meclizine [Antivert] 25 mg PO TID PRN 10/30/18 10/30/18 History Allergies Allergy/AdvReac Type Severity Reaction Status Date / Time fluticasone [From Flonase] AdvReac FAINTING Verified 10/30/18 19:56 Physical Exam Vitals: Vital Signs Temp Pulse Pulse Resp BP BP Pulse Ox 11/02/18 12:00 98.2 F 56 L 29 H 131/75 95 11/02/18 11:00 65 22 128/61 97 11/02/18 10:00 64 16 128/61 97 11/02/18 09:00 67 18 120/76 92 L 11/02/18 08:00 98.2 F 62 20 137/90 95 11/02/18 07:01 56 L 16 137/77 92 L 11/02/18 06:00 58 L 16 94 L 11/02/18 05:00 80 17 120/68 95 11/02/18 04:00 97.8 F 51 L 14 124/70 93 L 11/02/18 03:00 53 L 22 151/66 93 L 11/02/18 02:00 57 L 16 151/66 91 L 11/02/18 01:00 98.2 F 64 18 151/66 91 L 11/02/18 00:50 65 18 92 L 11/02/18 00:00 97.4 F L 66 18 129/61 95 11/01/18 20:00 97.4 F L 65 20 155/72 94 L 11/01/18 16:00 98.7 F 76 18 140/97 96 11/01/18 13:23 97.8 F 78 18 138/85 95 Intake and Output 11/01/18 11/02/18 11/02/18 22:59 06:59 14:59 Intake Total 2640 300 135 Output Total 300 1350 650 Balance 2340 -1050 -515 Intake: IV 300 135 0.9 300 60 amiodarone 75 Oral 2640 Output: Urine 300 1350 650 Other: Voiding Method Toilet Toilet Toilet # Voids 1 - Constitutional General appearance: disheveled, morbidly obese, no acute distress - EENT Eyes: anicteric sclerae, EOMI, PERRLA, normal appearance Ears: bilateral: normal - Neck Neck: normal ROM Carotids: bilateral: upstroke normal - Respiratory Respiratory: bilateral: CTA, diminished, negative: dullness, rales, rhonchi, wheezing - Cardiovascular Rhythm: regular Heart sounds: normal: S1, S2 - Gastrointestinal General gastrointestinal: decreased bowel sounds, distended, normal bowel sounds, soft - Neurologic Neurologic: CNII-XII intact - Musculoskeletal Musculoskeletal: gait normal, generalized weakness, strength equal bilaterally - Psychiatric Psychiatric: A&O x's 3, appropriate affect, intact judgment & insight Results - Laboratory Findings CBC and BMP: 11/02/18 05:06 11/02/18 05:06 Abnormal lab findings: Abnormal Labs 10/30/18 10/30/18 10/30/18 19:30 19:30 20:35 RBC Hgb 12.9 L MCHC RDW 15.9 H Lymphocytes # Potassium 5.6 H Chloride 109 H Carbon Dioxide 20 L BUN 51 H Creatinine 2.18 H Glucose 127 H POC Glucose (mg/dL) Hemoglobin A1c Magnesium Urine Protein 1+ H Urine Mucus Rare H U Random Total Protein Double Strand DNA Ab Tot Complement (CH50) 10/30/18 10/30/18 10/31/18 20:35 22:45 06:23 RBC Hgb MCHC RDW Lymphocytes # Potassium Chloride Carbon Dioxide BUN Creatinine Glucose POC Glucose (mg/dL) 123 H 124 H Hemoglobin A1c Magnesium Urine Protein Urine Mucus U Random Total Protein 89 H Double Strand DNA Ab Tot Complement (CH50) 10/31/18 10/31/18 10/31/18 06:34 06:34 06:34 RBC 4.25 L Hgb 12.0 L MCHC 30.5 L RDW Lymphocytes # 0.9 L Potassium 5.5 H Chloride 108 H Carbon Dioxide BUN 46 H Creatinine 2.19 H Glucose 125 H POC Glucose (mg/dL) Hemoglobin A1c 7.7 H Magnesium Urine Protein Urine Mucus U Random Total Protein Double Strand DNA Ab Tot Complement (CH50) 10/31/18 10/31/18 10/31/18 11:43 15:08 16:53 RBC Hgb MCHC RDW Lymphocytes # Potassium 5.3 H Chloride Carbon Dioxide BUN Creatinine Glucose POC Glucose (mg/dL) 103 H 117 H Hemoglobin A1c Magnesium Urine Protein Urine Mucus U Random Total Protein Double Strand DNA Ab Tot Complement (CH50) 10/31/18 10/31/18 11/01/18 20:40 22:25 06:19 RBC Hgb 12.5 L MCHC RDW 16.1 H Lymphocytes # Potassium 5.3 H Chloride Carbon Dioxide BUN Creatinine Glucose POC Glucose (mg/dL) 130 H Hemoglobin A1c Magnesium Urine Protein Urine Mucus U Random Total Protein Double Strand DNA Ab Tot Complement (CH50) 11/01/18 11/01/18 11/01/18 06:19 06:19 06:28 RBC Hgb MCHC RDW Lymphocytes # Potassium Chloride Carbon Dioxide BUN 51 H Creatinine 2.24 H Glucose 118 H POC Glucose (mg/dL) 116 H Hemoglobin A1c Magnesium 2.4 H Urine Protein Urine Mucus U Random Total Protein Double Strand DNA Ab Tot Complement (CH50) 11/01/18 11/01/18 11/01/18 11:23 11:23 11:38 RBC Hgb MCHC RDW Lymphocytes # Potassium Chloride Carbon Dioxide BUN Creatinine Glucose POC Glucose (mg/dL) 129 H Hemoglobin A1c Magnesium Urine Protein Urine Mucus U Random Total Protein Double Strand DNA Ab Indetermin H Tot Complement (CH50) >98 H 11/01/18 11/01/18 11/02/18 16:38 20:49 00:48 RBC Hgb MCHC RDW Lymphocytes # Potassium Chloride Carbon Dioxide BUN Creatinine Glucose POC Glucose (mg/dL) 126 H 137 H 219 H Hemoglobin A1c Magnesium Urine Protein Urine Mucus U Random Total Protein Double Strand DNA Ab Tot Complement (CH50) 11/02/18 11/02/18 11/02/18 05:06 05:06 06:49 RBC 4.29 L Hgb 12.3 L MCHC 30.9 L RDW 15.7 H Lymphocytes # Potassium Chloride Carbon Dioxide BUN 54 H Creatinine 2.06 H Glucose 134 H POC Glucose (mg/dL) 131 H Hemoglobin A1c Magnesium Urine Protein Urine Mucus U Random Total Protein Double Strand DNA Ab Tot Complement (CH50) 11/02/18 12:07 RBC Hgb MCHC RDW Lymphocytes # Potassium Chloride Carbon Dioxide BUN Creatinine Glucose POC Glucose (mg/dL) 122 H Hemoglobin A1c Magnesium Urine Protein Urine Mucus U Random Total Protein Double Strand DNA Ab Tot Complement (CH50) - Diagnostic Findings Chest x-ray: report reviewed, image reviewed (Left perihilar and retrocardiac airspace disease suspected developing pneumonia on x-ray performed on October 30) Assessment and Plan Assessment: Monomorphic ventricular tachycardia now in sinus rhythm in fact more of a sinus bradycardia Left-sided pneumonia versus atelectasis versus changes related to congestive heart failure and fluid overload Acute on chronic renal failure Mild hyperkalemia Coronary artery disease Diabetes mellitus Hypertension 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
--- NOTE | 2018-11-02 13:34 | XR ---
EXAMINATION TYPE: XR chest 1V DATE OF EXAM: 11/02/2018 CLINICAL HISTORY: Difficulty breathing and pneumonia progress study. TECHNIQUE: Single AP portable upright view of the chest is obtained. COMPARISON: Chest x-ray from 3 days earlier. FINDINGS: There is improving bibasilar opacities. Upper lungs remain clear without pneumothorax. Car diac silhouette size is less prominent with ectatic and atherosclerotic aorta. Overlying sternal wire s are redemonstrated. Osseous structures are intact. IMPRESSION: Suspect resolving CHF exacerbation given diminished cardiac silhouette size and resolving central vascular congestion. In addition there is improving bibasilar acute infiltrate and/or atelec tasis with suspected some residual left basilar acute infiltrate and/or atelectasis and small left pl eural effusion all felt present.
[2018-11-02 14:51] LABS: C-ANCA <1:20 Titer (<1:20); P-ANCA <1:20 Titer (<1:20)
[2018-11-02] MEDS: ATROPINE OPHTH SOLN 1% 5ML BTL RIGHT EYE SCH (15:54)
[2018-11-02] MEDS: prednisoLONE ACETATE 1% OPHTH DROPS 5 ML BTL RIGHT EYE SCH (15:55)
[2018-11-02] MEDS: SODIUM CHLORIDE 0.9% 1,000 ML IV SCH (16:48)
[2018-11-02 17:33] LABS: Glucose,Whole Blood 184 mg/dL (75-99)
--- NOTE | 2018-11-02 18:27 | PN ---
PROGRESS NOTE The patient is seen for followup for acute kidney injury. The patient was admitted to the hospital with weakness, fatigue and shortness of breath, and he is currently being treated for pneumonia. The patient also had cardiac dysrhythmia and ventricular tachycardia for which he is being followed by Cardiology. Currently, patient is maintained on amiodarone drip. His creatinine on admission was 2.18, did go up to 2.2 yesterday, today it is at 2.0. Review of previous labs shows creatinine as low as 1.4 on 09/26/2018. Abdominal imaging shows no evidence of hydronephrosis. The patient has liver-the patient has renal cyst. PHYSICAL EXAMINATION: On examination today, blood pressure this morning was 128/61, heart rate 65 per minute. He is afebrile. Examination of the heart S1, S2. Examination of lungs bilateral breath sounds are heard. Abdomen is soft, nontender. Exam of lower extremities shows trace edema bilaterally. 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 LAB: Show sodium 137, potassium 4.8, BUN 54, serum creatinine 2.06, magnesium 2.1, hemoglobin 12.3 g/dL. ASSESSMENT: 1. Acute kidney injury, nonoliguric, possibly acute tubular necrosis. No evidence of obstructive uropathy. No nephrotoxic agents on board. The patient does have mild proteinuria. The serologies have been ordered, mostly they are negative. Anti double stranded DNA was indeterminate. However, RUPERT was negative and complements were within normal range. The patient is not on any nephrotoxic medications. I will continue off of diuretics and off of IV fluids for now. 2. Renal cysts. Benign appearing. 3. Cardiac dysrhythmia, ventricular tachycardia, being followed by Cardiology. Currently on amiodarone drip. 4. Chronic kidney disease with previous creatinine at 1.4 on 09/26/2018, and all the way up back to 2014, serum creatinine was 1.3-1.2 mg/dL. Etiology is likely nephrosclerosis. PLAN: Continue off of fluids and diuretics. Avoid hypotension. Followup as outpatient. MMODL / IJN: [id number] /
--- NOTE | 2018-11-02 19:24 | CONS ---
CONSULTATION Mr. Hernandez is an 83-year-old gentleman who is seen for followup for cardiac evaluation. The events over the last 24 hours reviewed. This patient was admitted with nausea, vomiting, and acute on chronic renal failure. The patient has been having symptoms of lightheadedness on and of for last 10 days. He thought he was working very hard in the dry weather and he was not drinking enough fluids. After the admission yesterday during the daytime, patient had several episodes of nonsustained ventricular tachycardia for which patient was asymptomatic during the night. The patient again had an episode of tachycardia, but the events reviewed and it appears that the night the patient had an episodes which it appears to be an artifact. He is at present, comfortable and stable and denies any shortness of breath. The heart rate is 62 per minute, blood pressure is 157/68 mmHg, oxygen saturation is 94%. First and second heart sounds are normal. Lungs are clinically clear to auscultation and percussion. There is a grade 2/6 ejection systolic murmur noted. The patient's echocardiogram reveals overall normal left ventricular systolic function with mild degree of aortic stenosis. Patient's creatinine today is 2.06. FINAL IMPRESSION: This patient is admitted with acute on chronic renal failure. Patient is status post coronary artery bypass surgery in 1995. His left ventricular systolic function is normal. This patient had a several long runs of nonsustained ventricular tachycardia which could be responsible for his symptoms of lightheadedness as an outpatient. I discussed with him as well as his that he may need further evaluation with a cardiac catheterization and possible defibrillator. They want to think about it. We will continue the patient on amiodarone. We will discuss this with Dr. Gentile who is taking care of him. After his kidney functions are improved, if the patient agreeable, then further cardiac workup will be done. MMODL / IJN: [id number] /
[2018-11-02 20:25] LABS: Glucose,Whole Blood 243 mg/dL (75-99)
[2018-11-03 00:15] LABS: Glucose,Whole Blood 156 mg/dL (75-99)
[2018-11-03] MEDS: MECLIZINE 25 MG TAB PO SCH ×4 (00:15→21:04)
[2018-11-03] MEDS: INSULIN ASPART (NovoLOG) 100 UNIT/ML VIAL SQ SCH ×5 (00:15→21:04)
[2018-11-03] MEDS: METOPROLOL TARTRATE 25 MG TAB PO SCH ×3 (00:52→21:03)
[2018-11-03] MEDS: ATORVASTATIN 40 MG TAB PO SCH ×2 (00:53→21:03)
[2018-11-03 04:56] LABS: Anisocytosis Slight; HCT 35.5 % (39.0-53.0); HGB 11.2 gm/dL (13.0-17.5); MCHC 31.6 g/dL (31.0-37.0); MCV 91.8 fL (80.0-100.0); Mean Platelet Volume 8.2; Platelet Count 184 k/uL (150-450); RBC 3.86 m/uL (4.30-5.90); RDW 16.1 % (11.5-15.5); WBC 7.1 k/uL (3.8-10.6)
[2018-11-03 05:27] LABS: Albumin 3.7 g/dL (3.5-5.0); Calcium 9.3 mg/dL (8.4-10.2); Magnesium 1.9 mg/dL (1.6-2.3); Phosphorus 3.9 mg/dL (2.5-4.5); Potassium 4.8 mmol/L (3.5-5.1); Total Bilirubin 0.4 mg/dL (0.2-1.3); Total Protein 6.3 g/dL (6.3-8.2)
[2018-11-03] MEDS: AMIODARONE 300 MG in DEXTROSE 5% IN WATER 250 ML IV SCH ×4 (05:31→20:57)
[2018-11-03] MEDS: SODIUM CHLORIDE 0.9% 1,000 ML IV SCH (05:31)
[2018-11-03 07:05] LABS: Glucose,Whole Blood 127 mg/dL (75-99)
--- NOTE | 2018-11-03 07:20 | XR ---
EXAMINATION TYPE: XR chest 1V portable DATE OF EXAM: 11/03/2018 COMPARISON: 11/02/2018 HISTORY: Pneumonia. ICU management. Follow-up exam. Recent difficulty breathing. TECHNIQUE: Single frontal view of the chest is obtained. FINDINGS: No pulmonary vascular congestion is seen. Prominence of the aortic arch is unchanged from m ultiple priors. Cardia mediastinal silhouette remains enlarged with post CABG changes. There is impro ving aeration of the left costophrenic angle with very trace left pleural effusion remaining. Remaind er the lungs are clear. No sizable pneumothorax or acute osseous pathology. IMPRESSION: Improving aeration of the left lung base near the costophrenic angle with trace left ple ural effusion and probable minimal atelectasis remaining. No pulmonary vascular congestion.
[2018-11-03] MEDS: prednisoLONE ACETATE 1% OPHTH DROPS 5 ML BTL RIGHT EYE SCH (08:29)
[2018-11-03] MEDS: ASCORBIC ACID 500 MG TAB PO SCH (08:39)
[2018-11-03] MEDS: FENOFIBRATE 160 MG TAB PO SCH (08:40)
[2018-11-03] MEDS: PANTOPRAZOLE 40 MG TABLET PO SCH (08:40)
[2018-11-03] MEDS: ATROPINE OPHTH SOLN 1% 5ML BTL RIGHT EYE SCH (08:40)
[2018-11-03] MEDS: CYANOCOBALAMIN 500 MCG TAB PO SCH (08:40)
[2018-11-03] MEDS: ASPIRIN 81 MG PO SCH (08:40)
--- NOTE | 2018-11-03 09:34 | P.PN ---
Subjective Progress Note Date: 11/02/18 This is an 83-year-old gentleman with history of CABG, CABG, diabetes mellitus, hypertension presented to the ER with complaints of generalized weakness, fatigue, mild exertional shortness of breath ,nausea, mid epigastric abdominal discomfort with sour taste in mouth for over a week. Denies fever or chills. Denies vomiting, diarrhea.EKG reporting normal sinus rhythm with frequent PVCs/bigeminy. Troponins negative 3, BNP 1180. Echo of 2018 reporting EF 45- 50%. BUN 51 Creatinine 2.18, potassium 5.5. UA negative.Received GI cocktail, aspirin, IV fluids calcium gluconate. Chest x-ray reporting left perihilar and left basilar opacity possible early pneumonia, atelectasis-patient reports occasional cough, nonproductive. Head CT reported no acute intracranial hemorrhage, no midline shift, old lacunar injury of the right external capsule, large left maxillary mucosal cyst of the ethimoid/right maxillary sinuses. Afebrile, normal WBCs. Received Rocephin, Zithromax. Cardiology and nephrology consulted. 11/01/18 Complained of left hand arthritis pain throughout the night,relief with Tylenol. Creatinine 2.24 , potassium improved, 4.9.Depressed this morning, not eating, related to his concern over his kidney function as well as personal stressors. Blood sugars controlled. Renal ultrasound reporting multiple right renal cysts, measuring up to 6.1 cm, simple and benign appearance, incidental finding of splenic hypoechoic lesion measuring 3.0 x 2.8 x 3.0 cm. 11/02/2018 developed several runs of nonsustained ,asymptomatic V. 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 Transferred to ICU, bolused with IV amiodarone. Now on amiodarone drip. Magnesium 2.4 yesterday, currently 2.1 .Yesterday patient had been started on Lexapro, received 1 dose; that has been discontinued related to potential QT prolongation effects. Telemetry currently sinus rhythm with PVCs, occasional junctional. Echo reporting normal LV function, mild aortic stenosis. Renal function improving ,creatinine 2.06. CT of abdomen regarding possible spleen lesion noted on ultrasound, not seen, hepatic steatosis, numerous gallstones, minimally complex renal cysts with septation of the right inferior pole lesion with no hydronephrosis, no nephrolithiasis, moderate fecal stasis,.Positive bowel movement yesterday. Denies chest pain, palpitations or increased shortness of breath. Objective - Vital Signs Vital signs: Vital Signs Temp 98.2 F 11/02/18 12:00 Pulse 62 11/02/18 15:00 Resp 24 11/02/18 15:00 BP 157/68 11/02/18 15:00 Pulse Ox 94 L 11/02/18 15:00 Intake & Output 11/01/18 11/02/18 11/02/18 18:59 06:59 18:59 Intake Total 3060 300 240 Output Total 300 1650 1000 Balance 2360 -7690 -760 Intake: IV 300 240 0.9 300 90 amiodarone 150 Oral 3060 Output: Urine 300 1650 1000 Other: Voiding Method Toilet Toilet Toilet # Voids 1 1 - Exam VITAL SIGNS: As above GENERAL: Sitting up at side of bed, no acute distress HEENT: Head atraumatic ,Conjunctivae normal. Oral mucosa moist NECK: No JVD. No thyroid enlargement. No LNs CARDIOVASCULAR: S1, S2 regular.systolic murmur, no gallops, no rubs. RESPIRATION: Respiratory effort normal , unlabored .Breath sounds diminished in the bases. No rhonchi or crackles. No wheezing, ABDOMEN: Soft, nontender . No guarding. no masses palpable. Bowel sounds heard. LEGS: No edema. no swelling PSYCHIATRY: Alert and oriented -3, mood and affect depressed appearing NERVOUS SYSTEM: Cranial N 2-12 grossly normal. Moves all 4 limbs. Diffuse weakness No focal deficits. Strength and sensation grossly intact.. Skin: no lesions, no rash - Labs CBC & Chem 7: 11/03/18 04:43 11/03/18 04:43 Labs: Abnormal Lab Results - Last 24 Hours (Table) 11/01/18 11/01/18 11/01/18 Range/Units : 11:23 11:23 RBC (4.30-5.90) m/uL Hgb (13.0-17.5) gm/dL MCHC (31.0-37.0) g/dL RDW (11.5-15.5) % BUN (9-20) mg/dL Creatinine (0.66-1.25) mg/dL Glucose (74-99) mg/dL POC Glucose (mg/dL) (75-99) mg/dL Magnesium 2.4 H (1.6-2.3) mg/dL Double Strand DNA Ab Indetermin H (NEGATIVE) Tot Complement (CH50) >98 H (42 - 95) U/mL 11/01/18 11/01/18 11/02/18 Range/Units 16:38 20:49 00:48 RBC (4.30-5.90) m/uL Hgb (13.0-17.5) gm/dL MCHC (31.0-37.0) g/dL RDW (11.5-15.5) % BUN (9-20) mg/dL Creatinine (0.66-1.25) mg/dL Glucose (74-99) mg/dL POC Glucose (mg/dL) 126 H 137 H 219 H (75-99) mg/dL Magnesium (1.6-2.3) mg/dL Double Strand DNA Ab (NEGATIVE) Tot Complement (CH50) (42 - 95) U/mL 11/02/18 11/02/18 11/02/18 Range/Units 05:06 05:06 06:49 RBC 4.29 L (4.30-5.90) m/uL Hgb 12.3 L (13.0-17.5) gm/dL MCHC 30.9 L (31.0-37.0) g/dL RDW 15.7 H (11.5-15.5) % BUN 54 H (9-20) mg/dL Creatinine 2.06 H (0.66-1.25) mg/dL Glucose 134 H (74-99) mg/dL POC Glucose (mg/dL) 131 H (75-99) mg/dL Magnesium (1.6-2.3) mg/dL Double Strand DNA Ab (NEGATIVE) Tot Complement (CH50) (42 - 95) U/mL 11/02/18 Range/Units 12:07 RBC (4.30-5.90) m/uL Hgb (13.0-17.5) gm/dL MCHC (31.0-37.0) g/dL RDW (11.5-15.5) % BUN (9-20) mg/dL Creatinine (0.66-1.25) mg/dL Glucose (74-99) mg/dL POC Glucose (mg/dL) 122 H (75-99) mg/dL Magnesium (1.6-2.3) mg/dL Double Strand DNA Ab (NEGATIVE) Tot Complement (CH50) (42 - 95) U/mL Assessment and Plan Assessment: -Acute renal failure, prerenal in a patient on metformin and Zestoretic -placed on hold, possibly ATN -Chronic kidney disease, stage III secondary to diabetes mellitus, baseline 1.3- 1.5 -Hyperkalemia secondary to acute renal failure, resolved -V. tach, on amiodarone drip -CAD with history of CABG -Diabetes mellitus -Possible early pneumonia, possible atelectasis -Hypertension -Hyperlipidemia -Depression -Multiple renal cysts, benign appearing, follow-up CT in 6 months. -Splenic lesion, incidental finding on ultrasound, not reported on CT -Bibasilar atelectasis -Hepatic steatosis -Gallstones Plan: Continue on current medication regime ,monitoring and symptomatic treatment. Lexapro has been discontinued as discussed above.Cardiology and lead technician/pulmonary consulted. Avoid nephrotoxic agents. No diuretics or IV fluids as per nephrology. Close monitoring of electrolytes and renal function with repeat labs ordered for a.m. prognosis guarded given multiple complex medical issues. The impression and plan of care has been dictated as directed. : I performed a history and examination of this patient, discussed the same with the dictator. I agree with the dictator's note ,documented as a scribe. Any additional findings or plans will be noted.
--- NOTE | 2018-11-03 09:58 | P.PN ---
Subjective Progress Note Date: 11/03/18 This is an 83-year-old gentleman with history of CABG, CABG, diabetes mellitus, hypertension presented to the ER with complaints of generalized weakness, fatigue, mild exertional shortness of breath ,nausea, mid epigastric abdominal discomfort with sour taste in mouth for over a week. Denies fever or chills. Denies vomiting, diarrhea.EKG reporting normal sinus rhythm with frequent PVCs/bigeminy. Troponins negative 3, BNP 1180. Echo of 2018 reporting EF 45- 50%. BUN 51 Creatinine 2.18, potassium 5.5. UA negative.Received GI cocktail, aspirin, IV fluids calcium gluconate. Chest x-ray reporting left perihilar and left basilar opacity possible early pneumonia, atelectasis-patient reports occasional cough, nonproductive. Head CT reported no acute intracranial hemorrhage, no midline shift, old lacunar injury of the right external capsule, large left maxillary mucosal cyst of the ethimoid/right maxillary sinuses. Afebrile, normal WBCs. Received Rocephin, Zithromax. Cardiology and nephrology consulted. 11/01/18 Complained of left hand arthritis pain throughout the night,relief with Tylenol. Creatinine 2.24 , potassium improved, 4.9.Depressed this morning, not eating, related to his concern over his kidney function as well as personal stressors. Blood sugars controlled. Renal ultrasound reporting multiple right renal cysts, measuring up to 6.1 cm, simple and benign appearance, incidental finding of splenic hypoechoic lesion measuring 3.0 x 2.8 x 3.0 cm. 11/02/2018 developed several runs of nonsustained ,asymptomatic V. tach during the night and helix coil winder hours. Transferred to ICU, bolused with IV amiodarone. Now on amiodarone drip. Magnesium 2.4 yesterday, currently 2.1 .Yesterday patient had been started on Lexapro, received 1 dose; that has been discontinued related to potential QT prolongation effects. Telemetry currently sinus rhythm with PVCs, occasional junctional. Echo reporting normal LV function, mild aortic stenosis. Renal function improving ,creatinine 2.06. CT of abdomen regarding possible spleen lesion noted on ultrasound, not seen, hepatic steatosis, numerous gallstones, minimally complex renal cysts with septation of the right inferior pole lesion with no hydronephrosis, no nephrolithiasis, moderate fecal stasis,.Positive bowel movement yesterday. Denies chest pain, palpitations or increased shortness of breath. 11/03/18 maintained on amiodarone drip. Last night had a 30 beat nonsustained, asymptomatic run of V. tach. Magnesium 1.9. Currently sinus bradycardia with PVCs/junctional appearing occasionally. Renal function continues to improve, down to 1.79. Maintaining O2 sats in the mid 90s on room air. Denies lightheadedness dizziness or focal deficits. Denies chest pain, palpitations or shortness of breath. Objective - Vital Signs Vital signs: Vital Signs Temp 97.6 F 11/03/18 08:00 Pulse 57 L 11/03/18 09:00 Resp 18 11/03/18 09:00 BP 160/80 11/03/18 09:00 Pulse Ox 94 L 11/03/18 09:00 Intake & Output 11/02/18 11/03/18 11/03/18 18:59 06:59 18:59 Intake Total 410 1650 250 Output Total 1150 1525 300 Balance -740 125 -50 Weight 103.9 kg Intake: IV 410 1400 250 0.9 185 1100 225 amiodarone 225 300 25 Intake, IV Titration 250 Amount Amiodarone 300 mg In 250 Dextrose 5% in Water 250 ml @ 0.5 MG/MIN 25 mls/hr IV .Q10H [facility] Rx#: [id number] Output: Urine 1150 1525 300 Other: Voiding Method Toilet Toilet Urinal # Voids 1 # Bowel Movements 1 - Exam VITAL SIGNS: As above GENERAL: Sitting up at side of bed, no acute distress HEENT: Head atraumatic ,Conjunctivae normal. Oral mucosa moist NECK: No JVD. No thyroid enlargement. No LNs CARDIOVASCULAR: S1, S2 regular, bradycardic ,systolic murmur, no gallops, no rubs. RESPIRATION: Respiratory effort normal , unlabored .Breath sounds diminished in the bases. No rhonchi or crackles. No wheezing, ABDOMEN: Soft, nontender . No guarding. no masses palpable. Bowel sounds heard. LEGS: No edema. no swelling PSYCHIATRY: Alert and oriented -3, mood and affect depressed appearing NERVOUS SYSTEM: Cranial N 2-12 grossly normal. Moves all 4 limbs. Diffuse weakness No focal deficits. Strength and sensation grossly intact.. Skin: no lesions, no rash - Labs CBC & Chem 7: 11/03/18 04:43 11/03/18 04:43 Labs: Abnormal Lab Results - Last 24 Hours (Table) 11/02/18 11/02/18 11/02/18 Range/Units 12:07 17:32 20:23 RBC (4.30-5.90) m/uL Hgb (13.0-17.5) gm/dL Hct (39.0-53.0) % RDW (11.5-15.5) % BUN (9-20) mg/dL Creatinine (0.66-1.25) mg/dL Glucose (74-99) mg/dL POC Glucose (mg/dL) 122 H 184 H 243 H (75-99) mg/dL 11/03/18 11/03/18 11/03/18 Range/Units 00:14 04:43 04:43 RBC 3.86 L (4.30-5.90) m/uL Hgb 11.2 L (13.0-17.5) gm/dL Hct 35.5 L (39.0-53.0) % RDW 16.1 H (11.5-15.5) % BUN 48 H (9-20) mg/dL Creatinine 1.79 H (0.66-1.25) mg/dL Glucose 115 H (74-99) mg/dL POC Glucose (mg/dL) 156 H (75-99) mg/dL 11/03/18 Range/Units 07:03 RBC (4.30-5.90) m/uL Hgb (13.0-17.5) gm/dL Hct (39.0-53.0) % RDW (11.5-15.5) % BUN (9-20) mg/dL Creatinine (0.66-1.25) mg/dL Glucose (74-99) mg/dL POC Glucose (mg/dL) 127 H (75-99) mg/dL Assessment and Plan Assessment: -Acute renal failure, prerenal in a patient on metformin and Zestoretic -placed on hold, possibly ATN -Chronic kidney disease, stage III secondary to diabetes mellitus, baseline 1.3- 1.5 -Hyperkalemia secondary to acute renal failure, resolved -V. tach, on amiodarone drip -Bradycardia -CAD with history of CABG -Diabetes mellitus -Possible early pneumonia, possible atelectasis -Hypertension -Hyperlipidemia -Depression -Multiple renal cysts, benign appearing, follow-up CT in 6 months. -Splenic lesion, incidental finding on ultrasound, not reported on CT -Bibasilar atelectasis -Hepatic steatosis -Gallstones Plan: Continue on current medication regime ,monitoring and symptomatic treatment. IV access loss, midline catheter ordered. Cardiology had tiff mmended potential cardiac catheterization , defibrillator pending renal improvement. No nephrotoxic agents. Diuretics and IV fluids remian on hold. Close monitoring of electrolytes and renal function with repeat labs ordered for a.m. prognosis guarded given multiple complex medical issues. The impression and plan of care has been dictated as directed. : I performed a history and examination of this patient, discussed the same with the dictator. I agree with the dictator's note ,documented as a scribe. Any additional findings or plans will be noted.
--- NOTE | 2018-11-03 11:02 | P.PN ---
Subjective Patient is seen in follow-up for acute kidney injury on chronic kidney disease. Renal function is better today. Creatinine 1.79. Patient has chronic kidney disease stage III with baseline creatinine in the range of 1.3-1.5 most likely secondary to diabetic kidney disease. Currently resting in bed. He has been voiding. No evidence of urinary retention. No vomiting or diarrhea. He is maintained on amiodarone drip for arrhythmia. Patient had a 30 beat run of V. tach last night. Vital signs are stable. General: The patient appeared well nourished and normally developed. HEENT: Head exam is unremarkable. Neck is without jugular venous distension. LUNGS: Lungs are clear to auscultation and percussion. Breath sounds decreased. HEART: Rate and Rhythm are regular. First and second heart sounds normal. No murmurs, rubs or gallops. ABDOMEN: Abdominal exam reveals normal bowel sounds. Non-tender and non- distended. No evidence of peritonitis. EXTREMITITES: No clubbing, cyanosis, or edema. Objective - Vital Signs Vital signs: Vital Signs Temp 97.6 F 11/03/18 08:00 Pulse 56 L 11/03/18 10:00 Resp 18 11/03/18 10:00 BP 144/75 11/03/18 10:00 Pulse Ox 94 L 11/03/18 10:00 Intake & Output 11/02/18 11/03/18 11/03/18 18:59 06:59 18:59 Intake Total 410 1650 325 Output Total 1150 1525 750 Balance -740 125 -425 Weight 103.9 kg Intake: IV 410 1400 325 0.9 185 1100 300 amiodarone 225 300 25 Intake, IV Titration 250 Amount Amiodarone 300 mg In 250 Dextrose 5% in Water 250 ml @ 0.5 MG/MIN 25 mls/hr IV .Q10H [facility] Rx#: [id number] Output: Urine 1150 1525 750 Other: Voiding Method Toilet Toilet Urinal # Voids 1 # Bowel Movements 1 - Labs CBC & Chem 7: 11/03/18 04:43 11/03/18 04:43 Labs: Abnormal Lab Results - Last 24 Hours (Table) 11/02/18 11/02/18 11/02/18 Range/Units 12:07 17:32 20:23 RBC (4.30-5.90) m/uL Hgb (13.0-17.5) gm/dL Hct (39.0-53.0) % RDW (11.5-15.5) % BUN (9-20) mg/dL Creatinine (0.66-1.25) mg/dL Glucose (74-99) mg/dL POC Glucose (mg/dL) 122 H 184 H 243 H (75-99) mg/dL 11/03/18 11/03/18 11/03/18 Range/Units 00:14 04:43 04:43 RBC 3.86 L (4.30-5.90) m/uL Hgb 11.2 L (13.0-17.5) gm/dL Hct 35.5 L (39.0-53.0) % RDW 16.1 H (11.5-15.5) % BUN 48 H (9-20) mg/dL Creatinine 1.79 H (0.66-1.25) mg/dL Glucose 115 H (74-99) mg/dL POC Glucose (mg/dL) 156 H (75-99) mg/dL 11/03/18 Range/Units 07:03 RBC (4.30-5.90) m/uL Hgb (13.0-17.5) gm/dL Hct (39.0-53.0) % RDW (11.5-15.5) % BUN (9-20) mg/dL Creatinine (0.66-1.25) mg/dL Glucose (74-99) mg/dL POC Glucose (mg/dL) 127 H (75-99) mg/dL Assessment and Plan Plan: Assessment: 1. Acute kidney injury most likely due to ATN. No evidence of urinary retention or obstructive uropathy. Renal function improving. Creatinine 1.76 today. Patient does have sub-nephrotic range proteinuria. Will rule out GN - serologies have been negative. 2. Chronic kidney disease stage III most likely secondary to diabetic kidney disease with baseline creatinine in the range of 1.3-1.5. Patient does not follow with international marketing manager outpatient. 3. Hyperkalemia secondary to acute kidney injury as well as potassium supplementation and lisinopril that he was taking. Better. 4. Diabetes mellitus. 5. Hypertension with chronic kidney disease. Controlled. 6. Possible pneumonia. 7. Complex renal cysts. This will need to be followed outpatient. 8. Coronary artery disease status post CABG. 9. Nonsustained V. tach. Currently maintained on amiodarone drip. Cardiology following. Plan: Hep-Lock IV fluids. Encouraged oral intake. Avoid nephrotoxins. Repeat electrolytes in the morning.
[2018-11-03] MEDS: ISOSORBIDE MONONITRATE ER 30 MG TAB.ER.24H PO SCH (11:58)
[2018-11-03 12:01] LABS: Glucose,Whole Blood 94 mg/dL (75-99)
[2018-11-03] MEDS: AMIODARONE 200 MG TAB PO SCH ×2 (14:09→21:05)
--- NOTE | 2018-11-03 15:59 | P.PN ---
Subjective Progress Note Date: 11/03/18 Principal diagnosis: Monomorphic ventricular tachycardia, left-sided lung atelectasis,, acute congestive heart failure, renal failure acute on chronic, hyperkalemia, coronary artery disease, hypertension hypertensive cardiovascular disease, diabetes mellitus, mood disorder depression, sleep disorder breathing and sleep apnea 11/03/2018, patient seen and evaluated examined during the rounds last night patient is still episodes of monomorphic ventricular tachycardia hemodynamic remained stable patient is mostly bradycardic labs reviewed x-ray from today reviewed as well the infiltrate seen at the left base are clearing up likely CHF-like changes atelectasis rather than pneumonia, and labs are reviewed hemoglobin remained stable renal functions showed BUN/creatinine 48 and 1.79, which is improved from yesterday labs reviewed medications reviewed him a critical care time spent 35 minutes This is an 83-year-old gentleman with history of CABG, CABG, diabetes mellitus, hypertension presented to the ER with complaints of generalized weakness, fatigue, mild exertional shortness of breath ,nausea, mid epigastric abdominal discomfort with sour taste in mouth for over a week. Denies fever or chills. Denies vomiting, diarrhea.EKG reporting normal sinus rhythm with frequent PVCs/bigeminy. Troponins negative 3, BNP 1180. Echo of 2018 reporting EF 45- 50%. BUN 51 Creatinine 2.18, potassium 5.5. UA negative.Received GI cocktail, aspirin, IV fluids calcium gluconate. Chest x-ray reporting left perihilar and left basilar opacity possible early pneumonia, atelectasis-patient reports occasional cough, nonproductive. Head CT reported no acute intracranial hemorrhage, no midline shift, old lacunar injury of the right external capsule, large left maxillary mucosal cyst of the ethimoid/right maxillary sinuses. Afebrile, normal WBCs. Received Rocephin, Zithromax, patient was admitted on medical floor, where he was found to have runs of ventricular tachycardia with the persistent ventricular tachycardia monomorphic require admission into the ICU patient was started on amiodarone drip thoughts were compared to the contemplated about cardioversion reverted back with amiodarone drip currently he is mildly short of breath denies any cough or sputum production denies any chest pain, his echocardiogram revealed ejection fraction of 55-60% Objective - Vital Signs Vital signs: Vital Signs Temp 97.9 F 11/03/18 12:00 Pulse 64 11/03/18 14:00 Resp 22 11/03/18 14:00 BP 131/93 11/03/18 14:00 Pulse Ox 94 L 11/03/18 14:00 Intake & Output 11/02/18 11/03/18 11/03/18 18:59 06:59 18:59 Intake Total 410 1650 445 Output Total 1150 1525 1050 Balance -740 125 -605 Weight 103.9 kg Intake: IV 410 1400 445 0.9 185 1100 420 amiodarone 225 300 25 Intake, IV Titration 250 Amount Amiodarone 300 mg In 250 Dextrose 5% in Water 250 ml @ 0.5 MG/MIN 25 mls/hr IV .Q10H [facility] Rx#: [id number] Output: Urine 1150 1525 1050 Other: Voiding Method Toilet Toilet Urinal # Voids 1 # Bowel Movements 1 - Exam - Constitutional General appearance: disheveled, morbidly obese, no acute distress - EENT Eyes: anicteric sclerae, EOMI, PERRLA, normal appearance Ears: bilateral: normal - Neck Neck: normal ROM Carotids: bilateral: upstroke normal - Respiratory Respiratory: bilateral: CTA, diminished, negative: dullness, rales, rhonchi, wheezing - Cardiovascular Rhythm: regular Heart sounds: normal: S1, S2 - Gastrointestinal General gastrointestinal: decreased bowel sounds, distended, normal bowel sounds, soft - Neurologic Neurologic: CNII-XII intact - Musculoskeletal Musculoskeletal: gait normal, generalized weakness, strength equal bilaterally - Psychiatric Psychiatric: A&O x's 3, appropriate affect, intact judgment & insight - Labs CBC & Chem 7: 11/03/18 04:43 11/03/18 04:43 Labs: Abnormal Lab Results - Last 24 Hours (Table) 11/02/18 11/02/18 11/03/18 Range/Units 17:32 20:23 00:14 RBC (4.30-5.90) m/uL Hgb (13.0-17.5) gm/dL Hct (39.0-53.0) % RDW (11.5-15.5) % BUN (9-20) mg/dL Creatinine (0.66-1.25) mg/dL Glucose (74-99) mg/dL POC Glucose (mg/dL) 184 H 243 H 156 H (75-99) mg/dL 11/03/18 11/03/18 11/03/18 Range/Units 04:43 04:43 07:03 RBC 3.86 L (4.30-5.90) m/uL Hgb 11.2 L (13.0-17.5) gm/dL Hct 35.5 L (39.0-53.0) % RDW 16.1 H (11.5-15.5) % BUN 48 H (9-20) mg/dL Creatinine 1.79 H (0.66-1.25) mg/dL Glucose 115 H (74-99) mg/dL POC Glucose (mg/dL) 127 H (75-99) mg/dL Assessment and Plan Assessment: Monomorphic ventricular tachycardia, recurrent nature now her rate has stabilized less frequent now now in sinus rhythm in fact more of a sinus bradycardia Left-sided atelectasis versus changes related to congestive heart failure and fluid overload, less likely due to pneumonia will E patient off of antibiotics and observe clinical course closely white cell count stable Acute on chronic renal failure, renal functions are improving Mild hyperkalemia normalized now Coronary artery disease Diabetes mellitus Hypertension hypertensive cardiovascular disease Mood disorder and depression Nonspecific splenic lesion Plan: Today's chest x-ray portable to look for pneumonia I feel that the infiltrate that were noted before are more of atelectasis and fluid overload so we'll continue to hold antibiotics white cell count is normal Observe patient closely on amiodarone drip and subsequently will be changed by mouth later on today Monitor renal functions closely Deep breathing sense incentive spirometry Further recommendations pending plan of care as per clinical response of the patient KAELYN Bowen Checked EKG for QT prolongation, apparently QT interval appears to be normal on EKG its frequent PVCs noted Time with Patient: Greater than 30
[2018-11-03] MEDS: MEXILETINE 150 MG CAP PO SCH ×2 (16:54→23:25)
[2018-11-03 16:59] LABS: Glucose,Whole Blood 121 mg/dL (75-99)
--- NOTE | 2018-11-03 20:08 | PN ---
PROGRESS NOTE This patient was admitted with the symptoms of dizziness, lightheadedness and weakness. Patient was found to be in acute renal failure with a creatinine 2.0. He has been hydrated. His creatinine is improved to 1.79. He has been, for the last 48 hours, having nonsustained long runs of ventricular tachycardia. The patient has not been significantly symptomatic. The patient and the I had discussed with the patient and regarding their wish for further evaluation. They are not sure. I discussed with Dr. Gentile who is his primary clinical support associate and he will discuss with them. At present, we will switch the patient to oral amiodarone and beta siddhartha. The patient's overall prognosis is guarded. His left ventricular systolic function is normal. He has murmur of aortic stenosis. MMODL / IJN: [id number] /
[2018-11-03 21:01] LABS: Glucose,Whole Blood 131 mg/dL (75-99)
[2018-11-04 05:46] LABS: Anisocytosis Slight; Basophils % (A) 1 %; Eosinophils # (A) 0.6 k/uL (0-0.7); Eosinophils % (A) 10 %; HCT 37.3 % (39.0-53.0); HGB 11.7 gm/dL (13.0-17.5); Lymphocytes % (A) 15 %; MCH 28.8 pg (25.0-35.0); MCHC 31.3 g/dL (31.0-37.0); MCV 92.1 fL (80.0-100.0); Mean Platelet Volume 7.7; Monocytes # (A) 0.5 k/uL (0-1.0); Monocytes % (A) 8 %; Neutrophils % (A) 63 %; Platelet Count 188 k/uL (150-450); RBC 4.05 m/uL (4.30-5.90); RDW 16.4 % (11.5-15.5); WBC 6.3 k/uL (3.8-10.6)
[2018-11-04 06:02] LABS: Calcium 9.5 mg/dL (8.4-10.2); Magnesium 1.9 mg/dL (1.6-2.3); Phosphorus 3.2 mg/dL (2.5-4.5)
[2018-11-04 07:00] LABS: Glucose,Whole Blood 126 mg/dL (75-99)
[2018-11-04] MEDS: PANTOPRAZOLE 40 MG TABLET PO SCH (07:01)
[2018-11-04] MEDS: INSULIN ASPART (NovoLOG) 100 UNIT/ML VIAL SQ SCH ×4 (07:02→21:30)
--- NOTE | 2018-11-04 07:28 | XR ---
EXAMINATION TYPE: XR chest 1V portable DATE OF EXAM: 11/04/2018 COMPARISON: 11/03/2018 HISTORY: Cough TECHNIQUE: Single frontal view of the chest is obtained. FINDINGS: Strand-like left basilar airspace disease and slight blunting of the left costophrenic ang le remain. Cardiomediastinal silhouette is unchanged with persistent prominence of the aortic arch. P ost CABG changes of the chest are again noted. Chronic interstitial changes throughout the lungs with no new focal consolidation. No pneumothorax is seen. Diffuse osseous demineralization. IMPRESSION: Similar strand-like left basilar airspace disease, likely atelectasis with trace left pl eural effusion unchanged.
--- NOTE | 2018-11-04 08:40 | P.PN ---
Subjective Patient is seen in follow-up for acute kidney injury on chronic kidney disease. Renal function is stable. Creatinine 1.71. Patient has chronic kidney disease stage III with baseline creatinine in the range of 1.3-1.5 most likely secondary to diabetic kidney disease. Currently resting in bed. He has been voiding. No evidence of urinary retention. No vomiting or diarrhea. He is maintained on oral amiodarone now for arrhythmia. Vital signs are stable. General: The patient appeared well nourished and normally developed. HEENT: Head exam is unremarkable. Neck is without jugular venous distension. LUNGS: Lungs are clear to auscultation and percussion. Breath sounds decreased. HEART: Rate and Rhythm are regular. First and second heart sounds normal. No murmurs, rubs or gallops. ABDOMEN: Abdominal exam reveals normal bowel sounds. Non-tender and non- distended. No evidence of peritonitis. EXTREMITITES: No clubbing, cyanosis, or edema. Objective - Vital Signs Vital signs: Vital Signs Temp 97.6 F 11/04/18 08:00 Pulse 52 L 11/04/18 08:00 Resp 14 11/04/18 08:00 BP 146/71 11/04/18 08:00 Pulse Ox 94 L 11/04/18 08:00 Intake & Output 11/03/18 11/04/18 11/04/18 18:59 06:59 18:59 Intake Total 695 800 400 Output Total 1550 900 500 Balance -855 -100 -100 Weight 103.4 kg Intake: IV 445 0 0 0.9 420 0 0 amiodarone 25 Oral 250 800 400 Output: Urine 1550 900 500 Other: Voiding Method Urinal Bedside Commode # Bowel Movements 1 - Labs CBC & Chem 7: 11/04/18 05:10 11/04/18 05:10 Labs: Abnormal Lab Results - Last 24 Hours (Table) 11/03/18 11/03/18 11/04/18 Range/Units 16:58 20:59 05:10 RBC (4.30-5.90) m/uL Hgb (13.0-17.5) gm/dL Hct (39.0-53.0) % RDW (11.5-15.5) % Chloride 108 H (98-107) mmol/L BUN 42 H (9-20) mg/dL Creatinine 1.71 H (0.66-1.25) mg/dL Glucose 118 H (74-99) mg/dL POC Glucose (mg/dL) 121 H 131 H (75-99) mg/dL 11/04/18 11/04/18 Range/Units 05:10 06:58 RBC 4.05 L (4.30-5.90) m/uL Hgb 11.7 L (13.0-17.5) gm/dL Hct 37.3 L (39.0-53.0) % RDW 16.4 H (11.5-15.5) % Chloride (98-107) mmol/L BUN (9-20) mg/dL Creatinine (0.66-1.25) mg/dL Glucose (74-99) mg/dL POC Glucose (mg/dL) 126 H (75-99) mg/dL Assessment and Plan Plan: Assessment: 1. Acute kidney injury most likely due to ATN. No evidence of urinary r etention or obstructive uropathy. Renal function improving. Creatinine 1.71 today. Patient does have sub-nephrotic range proteinuria. Will rule out GN - serologies have been negative. 2. Chronic kidney disease stage III most likely secondary to diabetic kidney disease with baseline creatinine in the range of 1.3-1.5. Patient does not follow with lath hand outpatient. 3. Hyperkalemia secondary to acute kidney injury as well as potassium supplementation and lisinopril that he was taking. Better. 4. Diabetes mellitus. 5. Hypertension with chronic kidney disease. Controlled. 6. Possible pneumonia. 7. Complex renal cysts. This will need to be followed outpatient. 8. Coronary artery disease status post CABG. 9. Nonsustained V. tach. Currently maintained on oral amiodarone. Cardiology following. Plan: Remains off IV fluids. Encouraged oral intake. Avoid nephrotoxins. Repeat electrolytes in the morning.
--- NOTE | 2018-11-04 08:44 | P.PN ---
Subjective Progress Note Date: 11/04/18 Principal diagnosis: Monomorphic ventricular tachycardia, left-sided lung atelectasis,, acute congestive heart failure, renal failure acute on chronic, hyperkalemia, coronary artery disease, hypertension hypertensive cardiovascular disease, diabetes mellitus, mood disorder depression, sleep disorder breathing and sleep apnea 11/04/2018, patient seen and evaluated examined during the rounds, he is the comfortable remains in sinus pericardia, denies any shortness of breath some exertional dyspnea is present also noted to have some bigeminy on exertion but at rest he remains in sinus rhythm no arrhythmia was noted overnight his breathing is improved, chest x-ray from today revealed left lower lobe atelectasis with trace effusion overall continued to improve, renal functions remains stable potassium is 5 BUN/creatinine is 42 and 1.71 11/03/2018, patient seen and evaluated examined during the rounds last night patient is still episodes of monomorphic ventricular tachycardia hemodynamic remained stable patient is mostly bradycardic labs reviewed x-ray from today reviewed as well the infiltrate seen at the left base are clearing up likely CHF-like changes atelectasis rather than pneumonia, and labs are reviewed hemoglobin remained stable renal functions showed BUN/creatinine 48 and 1.79, which is improved from yesterday labs reviewed medications reviewed him a cri tical care time spent 35 minutes This is an 83-year-old gentleman with history of CABG, CABG, diabetes mellitus, hypertension presented to the ER with complaints of generalized weakness, fatigue, mild exertional shortness of breath ,nausea, mid epigastric abdominal discomfort with sour taste in mouth for over a week. Denies fever or chills. Denies vomiting, diarrhea.EKG reporting normal sinus rhythm with frequent PVCs/bigeminy. Troponins negative 3, BNP 1180. Echo of 2018 reporting EF 45-5 0%. BUN 51 Creatinine 2.18, potassium 5.5. UA negative.Received GI cocktail, aspirin, IV fluids calcium gluconate. Chest x-ray reporting left perihilar and left basilar opacity possible early pneumonia, atelectasis-patient reports occasional cough, nonproductive. Head CT reported no acute intracranial hemorrhage, no midline shift, old lacunar injury of the right external capsule, large left maxillary mucosal cyst of the ethimoid/right maxillary sinuses. Afebrile, normal WBCs. Received Rocephin, Zithromax, patient was admitted on medical floor, where he was found to have runs of ventricular tachycardia with the persistent ventricular tachycardia monomorphic require admission into the ICU patient was started on amiodarone drip thoughts were compared to the contemplated about cardioversion reverted back with amiodarone drip currently he is mildly short of breath denies any cough or sputum production denies any chest pain, his echocardiogram revealed ejection fraction of 55-60% Objective - Vital Signs Vital signs: Vital Signs Temp 97.6 F 11/04/18 08:00 Pulse 52 L 11/04/18 08:00 Resp 14 11/04/18 08:00 BP 146/71 11/04/18 08:00 Pulse Ox 94 L 11/04/18 08:00 Intake & Output 11/03/18 11/04/18 11/04/18 18:59 06:59 18:59 Intake Total 695 800 400 Output Total 1550 900 500 Balance -855 -100 -100 Weight 103.4 kg Intake: IV 445 0 0 0.9 420 0 0 amiodarone 25 Oral 250 800 400 Output: Urine 1550 900 500 Other: Voiding Method Urinal Bedside Commode # Bowel Movements 1 - Exam - Constitutional General appearance: disheveled, morbidly obese, no acute distress - EENT Eyes: anicteric sclerae, EOMI, PERRLA, normal appearance Ears: bilateral: normal - Neck Neck: normal ROM Carotids: bilateral: upstroke normal - Respiratory Respiratory: bilateral: CTA, diminished, negative: dullness, rales, rhonchi, wheezing - Cardiovascular Rhythm: regular Heart sounds: normal: S1, S2 - Gastrointestinal General gastrointestinal: decreased bowel sounds, distended, normal bowel sounds, soft - Neurologic Neurologic: CNII-XII intact - Musculoskeletal Musculoskeletal: gait normal, generalized weakness, strength equal bilaterally - Psychiatric Psychiatric: A&O x's 3, appropriate affect, intact judgment & insight - Labs CBC & Chem 7: 11/04/18 05:10 11/04/18 05:10 Labs: Abnormal Lab Results - Last 24 Hours (Table) 11/03/18 11/03/18 11/04/18 Range/Units 16:58 20:59 05:10 RBC (4.30-5.90) m/uL Hgb (13.0-17.5) gm/dL Hct (39.0-53.0) % RDW (11.5-15.5) % Chloride 108 H (98-107) mmol/L BUN 42 H (9-20) mg/dL Creatinine 1.71 H (0.66-1.25) mg/dL Glucose 118 H (74-99) mg/dL POC Glucose (mg/dL) 121 H 131 H (75-99) mg/dL 11/04/18 11/04/18 Range/Units 05:10 06:58 RBC 4.05 L (4.30-5.90) m/uL Hgb 11.7 L (13.0-17.5) gm/dL Hct 37.3 L (39.0-53.0) % RDW 16.4 H (11.5-15.5) % Chloride (98-107) mmol/L BUN (9-20) mg/dL Creatinine (0.66-1.25) mg/dL Glucose (74-99) mg/dL POC Glucose (mg/dL) 126 H (75-99) mg/dL Assessment and Plan Assessment: Monomorphic ventricular tachycardia, recurrent nature now her rate has stabilized less frequent now now in sinus rhythm in fact more of a sinus bradycardia Left-sided atelectasis versus changes related to congestive heart failure and fluid overload, less likely due to pneumonia will E patient off of antibiotics and observe clinical course closely white cell count stable Left pleural effusion, small in size Acute on chronic renal failure, renal functions are improving Mild hyperkalemia normalized now Coronary artery disease Diabetes mellitus Hypertension hypertensive cardiovascular disease Mood disorder and depression Nonspecific splenic lesion Plan: Today's chest x-ray portable to look for pneumonia I feel that the infiltrate that were noted before are more of atelectasis and fluid overload so we'll continue to hold antibiotics white cell count is normal Observe patient closely on amiodarone drip and subsequently will be changed by mouth later on today Monitor renal functions closely Deep breathing sense incentive spirometry Further recommendations pending plan of care as per clinical response of the patient Monitor off of Lexapro Checked EKG for QT prolongation, apparently QT interval appears to be normal on EKG its frequent PVCs noted Time with Patient: Greater than 30
[2018-11-04] MEDS: METOPROLOL TARTRATE 25 MG TAB PO SCH ×2 (08:49→21:04)
[2018-11-04] MEDS: CYANOCOBALAMIN 500 MCG TAB PO SCH (08:50)
[2018-11-04] MEDS: ISOSORBIDE MONONITRATE ER 30 MG TAB.ER.24H PO SCH (08:50)
[2018-11-04] MEDS: AMIODARONE 200 MG TAB PO SCH ×2 (08:50→21:04)
[2018-11-04] MEDS: ASCORBIC ACID 500 MG TAB PO SCH (08:51)
[2018-11-04] MEDS: ASPIRIN 81 MG PO SCH (08:51)
[2018-11-04] MEDS: prednisoLONE ACETATE 1% OPHTH DROPS 5 ML BTL RIGHT EYE SCH (08:55)
[2018-11-04] MEDS: MEXILETINE 150 MG CAP PO SCH ×2 (08:57→17:19)
[2018-11-04] MEDS: FENOFIBRATE 160 MG TAB PO SCH (08:58)
[2018-11-04] MEDS: ATROPINE OPHTH SOLN 1% 5ML BTL RIGHT EYE SCH (08:58)
[2018-11-04] MEDS: FERROUS SULFATE 325 MG TAB PO SCH (08:58)
[2018-11-04] MEDS: MECLIZINE 25 MG TAB PO SCH ×3 (08:58→21:30)
[2018-11-04 10:36] VITALS: BMI 31.8
--- NOTE | 2018-11-04 11:12 | PN ---
PROGRESS NOTE This patient is status post coronary artery bypass surgery. The patient was admitted with symptoms of dizziness and nausea and patient was initially treated for acute renal failure and dehydration. Patient's condition is improved. The patient continued to have recurrent episodes of ventricular tachycardia, nonsustained ventricular tachycardia. Echocardiogram revealed overall normal left ventricular systolic function. The patient was initially treated with IV amiodarone yesterday. Mexiletine 150 mg q.8 hourly is added. In the last 12 hours, the patient's ventricular tachycardia seems to have improved. We will continue the patient on amiodarone, mexiletine, and beta siddhartha. We will discuss with the patient and the further regarding further evaluation once the patient's renal function improved. MMODL / IJN: [id number] /
[2018-11-04 12:05] LABS: Glucose,Whole Blood 113 mg/dL (75-99)
--- NOTE | 2018-11-04 15:38 | P.PN ---
Subjective Progress Note Date: 11/04/18 This is an 83-year-old gentleman with history of CABG, CABG, diabetes mellitus, hypertension presented to the ER with complaints of generalized weakness, fatigue, mild exertional shortness of breath ,nausea, mid epigastric abdominal discomfort with sour taste in mouth for over a week. Denies fever or chills. Denies vomiting, diarrhea.EKG reporting normal sinus rhythm with frequent PVCs/bigeminy. Troponins negative 3, BNP 1180. Echo of 2018 reporting EF 45- 50%. BUN 51 Creatinine 2.18, potassium 5.5. UA negative.Received GI cocktail, aspirin, IV fluids calcium gluconate. Chest x-ray reporting left perihilar and left basilar opacity possible early pneumonia, atelectasis-patient reports occasional cough, nonproductive. Head CT reported no acute intracranial hemorrhage, no midline shift, old lacunar injury of the right external capsule, large left maxillary mucosal cyst of the ethimoid/right maxillary sinuses. Afebrile, normal WBCs. Received Rocephin, Zithromax. Cardiology and nephrology consulted. 11/01/18 Complained of left hand arthritis pain throughout the night,relief with Tylenol. Creatinine 2.24 , potassium improved, 4.9.Depressed this morning, not eating, related to his concern over his kidney function as well as personal stressors. Blood sugars controlled. Renal ultrasound reporting multiple right renal cysts, measuring up to 6.1 cm, simple and benign appearance, incidental finding of splenic hypoechoic lesion measuring 3.0 x 2.8 x 3.0 cm. 11/02/2018 developed several runs of nonsustained ,asymptomatic V. tach during the night and patented hogshead assembler hours. Transferred to ICU, bolused with IV amiodarone. Now on amiodarone drip. Magnesium 2.4 yesterday, currently 2.1 .Yesterday patient had been started on Lexapro, received 1 dose; that has been discontinued related to potential QT prolongation effects. Telemetry currently sinus rhythm with PVCs, occasional junctional. Echo reporting normal LV function, mild aortic stenosis. Renal function improving ,creatinine 2.06. CT of abdomen regarding possible spleen lesion noted on ultrasound, not seen, hepatic steatosis, numerous gallstones, minimally complex renal cysts with septation of the right inferior pole lesion with no hydronephrosis, no nephrolithiasis, moderate fecal stasis,.Positive bowel movement yesterday. Denies chest pain, palpitations or increased shortness of breath. 11/03/18 maintained on amiodarone drip. Last night had a 30 beat nonsustained, asymptomatic run of V. tach. Magnesium 1.9. Currently sinus bradycardia with PVCs/junctional appearing occasionally. Renal function continues to improve, down to 1.79. Maintaining O2 sats in the mid 90s on room air. Denies lightheadedness dizziness or focal deficits. Denies chest pain, palpitations or shortness of breath. 11/14/2018 no further runs of V. tach. Converted to oral amiodarone with Mexiletine and beta siddhartha . Creatinine 1.71. Cardiology discussing cardiac catheterization with AICD versus medical management. Patient indecisive. Patient's own aerobics teacher, Dr. Gentile, rounding tomorrow and will further discuss with him. Sinus bradycardia. Denies chest pain, palpitations or shortn ess of breath. Denies lightheadedness dizziness or focal deficits. Afebrile, normal WBC. Chest x-ray reporting similar left basilar airspace disease likely atelectasis with unchanged trace left pleural effusion. Maintaining O2 sats of 93-95% on room air. Objective - Vital Signs Vital signs: Vital Signs Temp 97.7 F 11/04/18 12:00 Pulse 60 11/04/18 13:00 Resp 15 11/04/18 13:00 BP 136/96 11/04/18 13:00 Pulse Ox 93 L 11/04/18 12:00 Intake & Output 11/03/18 11/04/18 11/04/18 18:59 06:59 18:59 Intake Total 695 800 650 Output Total 1550 900 950 Balance -855 -100 -300 Weight 103.4 kg 103.4 kg Intake: IV 445 0 0 0.9 420 0 0 amiodarone 25 Oral 250 800 650 Output: Urine 1550 900 950 Other: Voiding Method Urinal Bedside Commode Bedside Commode # Bowel Movements 1 - Exam VITAL SIGNS: As above GENERAL: Sitting up in bed, no acute distress HEENT: Head atraumatic ,Conjunctivae normal. Oral mucosa moist NECK: No JVD. No thyroid enlargement. No LNs CARDIOVASCULAR: S1, S2 regular, bradycardic ,systolic murmur, no gallops, no rubs. RESPIRATION: Respiratory effort normal , unlabored .Breath sounds diminished in the bases. No rhonchi or crackles. No wheezing, ABDOMEN: Soft, nontender . No guarding. no masses palpable. Bowel sounds heard. LEGS: No edema. no swelling PSYCHIATRY: Alert and oriented X 3, mood and affect depressed appearing NERVOUS SYSTEM: Cranial N 2-12 grossly normal. Moves all 4 limbs. Diffuse weakness No focal deficits. Strength and sensation grossly intact. Skin: no lesions, no rash - Labs CBC & Chem 7: 11/04/18 05:10 11/04/18 05:10 Labs: Abnormal Lab Results - Last 24 Hours (Table) 11/03/18 11/03/18 11/04/18 Range/Units 16:58 20:59 05:10 RBC (4.30-5.90) m/uL Hgb (13.0-17.5) gm/dL Hct (39.0-53.0) % RDW (11.5-15.5) % Chloride 108 H (98-107) mmol/L BUN 42 H (9-20) mg/dL Creatinine 1.71 H (0.66-1.25) mg/dL Glucose 118 H (74-99) mg/dL POC Glucose (mg/dL) 121 H 131 H (75-99) mg/dL 11/04/18 11/04/18 11/04/18 Range/Units 05:10 06:58 12:03 RBC 4.05 L (4.30-5.90) m/uL Hgb 11.7 L (13.0-17.5) gm/dL Hct 37.3 L (39.0-53.0) % RDW 16.4 H (11.5-15.5) % Chloride (98-107) mmol/L BUN (9-20) mg/dL Creatinine (0.66-1.25) mg/dL Glucose (74-99) mg/dL POC Glucose (mg/dL) 126 H 113 H (75-99) mg/dL Assessment and Plan Assessment: -Acute renal failure, prerenal in a patient on metformin and Zestoretic -placed on hold, possibly ATN. -Chronic kidney disease, stage III secondary to diabetes mellitus, baseline 1.3- 1.5 -Hyperkalemia secondary to acute renal failure, resolved -Nonsustained, asymptomatic V. tach, S/P amiodarone drip -Bradycardia -CAD with history of CABG -Diabetes mellitus -Left Sided atelectasis with small left pleural effusion, doubt pneumonia -Hypertension -Hyperlipidemia -Depression -Multiple renal cysts, benign appearing, follow-up CT in 6 months. -Splenic lesion, incidental finding on ultrasound, not reported on CT -Bibasilar atelectasis -Hepatic steatosis -Gallstones Plan: Continue on current medication regime ,monitoring and symptomatic treatment. Further options of cardiac catheterization , defibrillator pending renal improvement, to be readdressed tomorrow with Dr. Gentile. If patient chooses cardiac catheterization, pre-and postprocedure fluid management as per nephrology .No nephrotoxic agents. Close monitoring of electrolytes and renal function with repeat labs ordered for a.m. aggressive pulmonary toileting with incentive spirometer reinforced. prognosis guarded given multiple complex medical issues. The impression and plan of care has been dictated as directed. : I performed a history and examination of this patient, discussed the same with the dictator. I agree with the dictator's note ,documented as a scribe. Any additional findings or plans will be noted.
[2018-11-04 17:15] LABS: Glucose,Whole Blood 197 mg/dL (75-99)
[2018-11-04] MEDS: ATORVASTATIN 40 MG TAB PO SCH (21:04)
[2018-11-04 21:10] LABS: Glucose,Whole Blood 153 mg/dL (75-99)
[2018-11-05] MEDS: MEXILETINE 150 MG CAP PO SCH ×3 (00:35→17:10)
[2018-11-05] MEDS: TEMAZEPAM 15 MG CAP PO PRN (00:37)
[2018-11-05 05:36] LABS: Anisocytosis Slight; Basophils # (A) 0.1 k/uL (0-0.2); Basophils % (A) 1 %; Eosinophils # (A) 0.6 k/uL (0-0.7); Eosinophils % (A) 10 %; HCT 36.2 % (39.0-53.0); HGB 11.4 gm/dL (13.0-17.5); Lymphocytes % (A) 16 %; MCHC 31.5 g/dL (31.0-37.0); MCV 92.3 fL (80.0-100.0); Mean Platelet Volume 7.3; Monocytes # (A) 0.6 k/uL (0-1.0); Monocytes % (A) 9 %; Neutrophils # (A) 3.9 k/uL (1.3-7.7); Neutrophils % (A) 62 %; Platelet Count 188 k/uL (150-450); RBC 3.92 m/uL (4.30-5.90); RDW 16.7 % (11.5-15.5); WBC 6.3 k/uL (3.8-10.6)
[2018-11-05 05:45] LABS: Albumin 3.6 g/dL (3.5-5.0); Magnesium 1.8 mg/dL (1.6-2.3); Phosphorus 3.2 mg/dL (2.5-4.5); Total Bilirubin 0.4 mg/dL (0.2-1.3); Total Protein 6.2 g/dL (6.3-8.2)
[2018-11-05] MEDS: PANTOPRAZOLE 40 MG TABLET PO SCH (06:29)
[2018-11-05 06:53] LABS: Glucose,Whole Blood 113 mg/dL (75-99)
[2018-11-05] MEDS: INSULIN ASPART (NovoLOG) 100 UNIT/ML VIAL SQ SCH ×4 (06:54→21:24)
[2018-11-05] MEDS: MECLIZINE 25 MG TAB PO SCH ×3 (08:31→21:24)
[2018-11-05] MEDS: FENOFIBRATE 160 MG TAB PO SCH (08:31)
[2018-11-05] MEDS: CYANOCOBALAMIN 500 MCG TAB PO SCH (08:31)
[2018-11-05] MEDS: AMIODARONE 200 MG TAB PO SCH ×2 (08:31→21:14)
[2018-11-05] MEDS: METOPROLOL TARTRATE 25 MG TAB PO SCH ×2 (08:31→21:14)
[2018-11-05] MEDS: ASPIRIN 81 MG PO SCH (08:31)
[2018-11-05] MEDS: ASCORBIC ACID 500 MG TAB PO SCH (08:31)
[2018-11-05] MEDS: ATROPINE OPHTH SOLN 1% 5ML BTL RIGHT EYE SCH (08:40)
[2018-11-05] MEDS: prednisoLONE ACETATE 1% OPHTH DROPS 5 ML BTL RIGHT EYE SCH (08:40)
[2018-11-05] MEDS: ISOSORBIDE MONONITRATE ER 30 MG TAB.ER.24H PO SCH (08:42)
--- NOTE | 2018-11-05 09:44 | P.PN ---
Subjective Patient is seen in follow-up for acute kidney injury on chronic kidney disease. Renal function is stable. Creatinine 1.74. Patient has chronic kidney disease stage III with baseline creatinine in the range of 1.3-1.5 most likely secondary to diabetic kidney disease. Currently resting in bed. He has been voiding. No evidence of urinary retention. No vomiting or diarrhea. He is maintained on oral amiodarone now for arrhythmia. Heart rate is controlled. He is eager to go home. Vital signs are stable. General: The patient appeared well nourished and normally developed. HEENT: Head exam is unremarkable. Neck is without jugular venous distension. LUNGS: Lungs are clear to auscultation and percussion. Breath sounds decreased. HEART: Rate and Rhythm are regular. First and second heart sounds normal. No murmurs, rubs or gallops. ABDOMEN: Abdominal exam reveals normal bowel sounds. Non-tender and non- distended. No evidence of peritonitis. EXTREMITITES: No clubbing, cyanosis, or edema. Objective - Vital Signs Vital signs: Vital Signs Temp 98.0 F 11/05/18 08:45 Pulse 56 L 11/05/18 08:45 Resp 15 11/05/18 08:45 BP 153/86 11/05/18 08:45 Pulse Ox 95 11/05/18 08:45 Intake & Output 11/04/18 11/05/18 11/05/18 18:59 06:59 18:59 Intake Total 650 0 240 Output Total 1450 Balance -800 0 240 Weight 103.4 kg 103.9 kg Intake: IV 0 0 0.9 0 0 Oral 650 240 Output: Urine 1450 Other: Voiding Method Bedside Commode Bedside Commode # Voids 1 3 1 # Bowel Movements 1 - Labs CBC & Chem 7: 11/05/18 05:01 11/05/18 05:01 Labs: Abnormal Lab Results - Last 24 Hours (Table) 11/04/18 11/04/18 11/04/18 Range/Units 12:03 17:13 21:09 RBC (4.30-5.90) m/uL Hgb (13.0-17.5) gm/dL Hct (39.0-53.0) % RDW (11.5-15.5) % Chloride (98-107) mmol/L BUN (9-20) mg/dL Creatinine (0.66-1.25) mg/dL Glucose (74-99) mg/dL POC Glucose (mg/dL) 113 H 197 H 153 H (75-99) mg/dL Total Protein (6.3-8.2) g/dL 11/05/18 11/05/18 11/05/18 Range/Units 05:01 05:01 06:52 RBC 3.92 L (4.30-5.90) m/uL Hgb 11.4 L (13.0-17.5) gm/dL Hct 36.2 L (39.0-53.0) % RDW 16.7 H (11.5-15.5) % Chloride 108 H (98-107) mmol/L BUN 41 H (9-20) mg/dL Creatinine 1.74 H (0.66-1.25) mg/dL Glucose 111 H (74-99) mg/dL POC Glucose (mg/dL) 113 H (75-99) mg/dL Total Protein 6.2 L (6.3-8.2) g/dL Assessment and Plan Plan: Assessment: 1. Acute kidney injury most likely due to ATN. No evidence of urinary retention or obstructive uropathy. Renal function stable. Creatinine 1.74 today. Patient does have sub-nephrotic range proteinuria. Will rule out GN - serologies have been negative except for double-stranded DNA antibody was intermediate with negative RUPERT. 2. Chronic kidney disease stage III most likely secondary to diabetic kidney disease with baseline creatinine in the range of 1.3-1.5. Patient does not follow with business continuity global director outpatient. 3. Hyperkalemia secondary to acute kidney injury as well as potassium supplementation and lisinopril that he was taking. Stable. 4. Diabetes mellitus. 5. Hypertension with chronic kidney disease. Controlled. 6. Complex renal cysts. This will need to be followed outpatient. 7. Coronary artery disease status post CABG. 8. Nonsustained V. tach. Currently maintained on oral amiodarone. Cardiology following. Plan: Remains off IV fluids. Encouraged oral intake. Avoid nephrotoxins. Repeat electrolytes in the morning. Patient will need to follow-up outpatient in the next 1-2 weeks.
[2018-11-05 12:01] LABS: Glucose,Whole Blood 110 mg/dL (75-99)
--- NOTE | 2018-11-05 12:10 | P.PN ---
Subjective Progress Note Date: 11/05/18 Principal diagnosis: Monomorphic ventricular tachycardia, left-sided lung atelectasis,, acute congestive heart failure, renal failure acute on chronic, hyperkalemia, coronary artery disease, hypertension hypertensive cardiovascular disease, diabetes mellitus, mood disorder depression, sleep disorder breathing and sleep apnea 11/05/2018, patient seen and evaluated examined during the rounds he has slight cough but no shortness of breath however shortness of breath is present during exertion he is considered not interfere candidate for cardiac cath and angiogram at this time due to renal functions, he is being evaluated for AICD placement, tentatively scheduled for tomorrow, he remains afebrile white cell count is normal denies any chest pain cough or shortness of breath, x-ray changes that was seen previously. Atelectasis changes and some fluid overload have improved previous x-ray, from pulmonary standpoint okay to precede AICD placement 11/04/2018, patient seen and evaluated examined during the rounds, he is the comfortable remains in sinus pericardia, denies any shortness of breath some exertional dyspnea is present also noted to have some bigeminy on exertion but at rest he remains in sinus rhythm no arrhythmia was noted overnight his breathing is improved, chest x-ray from today revealed left lower lobe atelectasis with trace effusion overall continued to improve, renal functions remains stable potassium is 5 BUN/creatinine is 42 and 1.71 11/03/2018, patient seen and evaluated examined during the rounds last night patient is still episodes of monomorphic ventricular tachycardia hemodynamic remained stable patient is mostly bradycardic labs reviewed x-ray from today reviewed as well the infiltrate seen at the left base are clearing up likely CH F-like changes atelectasis rather than pneumonia, and labs are reviewed hemoglobin remained stable renal functions showed BUN/creatinine 48 and 1.79, which is improved from yesterday labs reviewed medications reviewed him a critical care time spent 35 minutes This is an 83-year-old gentleman with history of CABG, CABG, diabetes mellitus, hypertension presented to the ER with complaints of generalized weakness, fatigue, mild exertional shortness of breath ,nausea, mid epigastric abdominal discomfort with sour taste in mouth for over a week. Denies fever or chills. Denies vomiting, diarrhea.EKG reporting normal sinus rhythm with frequent PVCs/bigeminy. Troponins negative 3, BNP 1180. Echo of 2018 reporting EF 45- 50%. BUN 51 Creatinine 2.18, potassium 5.5. UA negative.Received GI cocktail, aspirin, IV fluids calcium gluconate. Chest x-ray reporting left perihilar and left basilar opacity possible early pneumonia, atelectasis-patient reports occasional cough, nonproductive. Head CT reported no acute intracranial hemorrhage, no midline shift, old lacunar injury of the right external capsule, large left maxillary mucosal cyst of the ethimoid/right maxillary sinuses. Afebrile, normal WBCs. Received Rocephin, Zithromax, patient was admitted on medical floor, where he was found to have runs of ventricular tachycardia with the persistent ventricular tachycardia monomorphic require admission into the ICU patient was started on amiodarone drip thoughts were compared to the con templated about cardioversion reverted back with amiodarone drip currently he is mildly short of breath denies any cough or sputum production denies any chest pain, his echocardiogram revealed ejection fraction of 55-60% Objective - Vital Signs Vital signs: Vital Signs Temp 98.0 F 11/05/18 08:45 Pulse 56 L 11/05/18 08:45 Resp 15 11/05/18 08:45 BP 153/86 11/05/18 08:45 Pulse Ox 95 11/05/18 08:45 Intake & Output 11/04/18 11/05/18 11/05/18 18:59 06:59 18:59 Intake Total 650 0 240 Output Total 1450 Balance -800 0 240 Weight 103.4 kg 103.9 kg Intake: IV 0 0 0.9 0 0 Oral 650 240 Output: Urine 1450 Other: Voiding Method Bedside Commode Bedside Commode # Voids 1 3 1 # Bowel Movements 1 - Exam - Constitutional General appearance: disheveled, morbidly obese, no acute distress - EENT Eyes: anicteric sclerae, EOMI, PERRLA, normal appearance Ears: bilateral: normal - Neck Neck: normal ROM Carotids: bilateral: upstroke normal - Respiratory Respiratory: bilateral: CTA, diminished, negative: dullness, rales, rhonchi, wheezing - Cardiovascular Rhythm: regular Heart sounds: normal: S1, S2 - Gastrointestinal General gastrointestinal: decreased bowel sounds, distended, normal bowel sounds, soft - Neurologic Neurologic: CNII-XII intact - Musculoskeletal Musculoskeletal: gait normal, generalized weakness, strength equal bilaterally - Psychiatric Psychiatric: A&O x's 3, appropriate affect, intact judgment & insight - Labs CBC & Chem 7: 11/05/18 05:01 11/05/18 05:01 Labs: Abnormal Lab Results - Last 24 Hours (Table) 11/04/18 11/04/18 11/05/18 Range/Units 17:13 21:09 05:01 RBC 3.92 L (4.30-5.90) m/uL Hgb 11.4 L (13.0-17.5) gm/dL Hct 36.2 L (39.0-53.0) % RDW 16.7 H (11.5-15.5) % Chloride (98-107) mmol/L BUN (9-20) mg/dL Creatinine (0.66-1.25) mg/dL Glucose (74-99) mg/dL POC Glucose (mg/dL) 197 H 153 H (75-99) mg/dL Total Protein (6.3-8.2) g/dL 11/05/18 11/05/18 11/05/18 Range/Units 05:01 06:52 11:59 RBC (4.30-5.90) m/uL Hgb (13.0-17.5) gm/dL Hct (39.0-53.0) % RDW (11.5-15.5) % Chloride 108 H (98-107) mmol/L BUN 41 H (9-20) mg/dL Creatinine 1.74 H (0.66-1.25) mg/dL Glucose 111 H (74-99) mg/dL POC Glucose (mg/dL) 113 H 110 H (75-99) mg/dL Total Protein 6.2 L (6.3-8.2) g/dL Assessment and Plan Assessment: Monomorphic ventricular tachycardia, recurrent nature now her rate has stabilized less frequent now now in sinus rhythm in fact more of a sinus bradycardia patient is being considered for AICD placement due to high risk of recurrent ventricular tachycardia and sudden cardiac Left-sided atelectasis versus changes related to congestive heart failure and fluid overload, less likely due to pneumonia will E patient off of antibiotics and observe clinical course closely white cell count stable Left pleural effusion, small in size Acute on chronic renal failure, renal functions are improving Mild hyperkalemia normalized now Coronary artery disease Diabetes mellitus Hypertension hypertensive cardiovascular disease Mood disorder and depression Nonspecific splenic lesion Plan: Okay to proceed AICD insertion from pulmonary standpoint I feel that the infiltrate that were noted before are more of atelectasis and fluid overload so we'll continue to hold antibiotics white cell count is normal Observe patient closely on amiodarone drip and subsequently will be changed by mouth later on today Monitor renal functions closely Deep breathing sense incentive spirometry Further recommendations pending plan of care as per clinical response of the patient Monitor off of Lexapro Checked EKG for QT prolongation, apparently QT interval appears to be normal on EKG its frequent PVCs noted Time with Patient: Greater than 30
[2018-11-05 16:58] LABS: Glucose,Whole Blood 170 mg/dL (75-99)
--- NOTE | 2018-11-05 19:14 | P.CRDCN ---
History of Present Illness History of present illness: Asked by Dr. Gentile to evaluate the patient for candidacy for ICD implant Patient presented to the hospital for the following reasons 1. Feeling of weakness and dizziness associated with palpitations and near syncope and one brief episode of syncope associated with palpitations. In the hospital we have documented very long sustained episodes of wide complex tachycardia consistent with ventricular tachycardia as well as sustained episodes of VT requiring antiarrhythmic drug therapy for suppression. While his LV function is in normal range, he has a dilated right ventricle Known coronary artery disease status post coronary artery bypass grafting. Patient denies any symptoms of angina or chest discomfort during these episodes of palpitations and rapid heartbeat and he has fast sustained spontaneous ventricular tachycardia potassium was around 5.0 2. Feeling of poor appetite back days in the mouth consistent with mild renal insufficiency which has improved Suggest Proceed with ICD implantation for secondary prevention of sudden cardiac Patient has spontaneous sustained ventricular tachycardia, recurrent associated with syncope and presyncope that brought him to the hospital Currently on suppressive antiarrhythmic drug therapy Dilated right ventricle/right ventricular cardiac myopathy Past Medical History Past Medical History: Coronary Artery Disease (CAD), Cancer, Diabetes Mellitus, Hyperlipidemia, Hypertension Additional Past Medical History / Comment(s): colon ca, cataracts, hard of hearing History of Any Multi-Drug Resistant Organisms: None Reported Past Surgical History: Bowel Resection, Coronary Bypass/CABG Additional Past Surgical History / Comment(s): colon ca, hernia repair, triple vessel CABG 1995 Past Anesthesia/Blood Transfusion Reactions: No Reported Reaction Past Psychological History: No Psychological Hx Reported Smoking Status: Never smoker Past Alcohol Use History: None Reported Past Drug Use History: None Reported Medications and Allergies Home Medications Medication Instructions Recorded Confirmed Type Ascorbic Acid [Vitamin C] 1,000 mg PO DAILY 04/03/15 10/30/18 History Aspirin EC [Ecotrin Low Dose] 81 mg PO DAILY 04/03/15 10/30/18 History Atropine Ophth Soln 1% 5Ml [Isopto 2 drops RIGHT EYE DAILY 04/03/15 10/30/18 History Atropine 1% 5Ml] Fenofibrate Nanocrystallized 145 mg PO DAILY 04/03/15 10/30/18 History [Tricor] Ferrous Sulfate [Feosol] 325 mg PO Q48H 04/03/15 10/30/18 History Lisinopril-Hctz 20-25 mg 1 tab PO DAILY 04/03/15 10/30/18 History [Zestoretic 20-25] Metoprolol Tartrate [Lopressor] 50 mg PO DAILY 04/03/15 10/30/18 History Potassium Chloride ER [K-Dur 10] 10 meq PO DAILY 04/03/15 10/30/18 History Propylene Glycol/Peg 400/Pf 1 drop BOTH EYES DAILY PRN 04/03/15 10/30/18 History [Systane 0.3-0.4% Eye Drops] Temazepam [Restoril] 15 mg PO HS PRN 04/03/15 10/30/18 History metFORMIN HCL 500 mg PO AC-SUPPER 04/03/15 10/30/18 History prednisoLONE ACETATE 1% OPHTH 1 drops RIGHT EYE DAILY 04/03/15 10/30/18 History [Pred Forte 1%] sitaGLIPtin [Januvia] 50 mg PO DAILY 04/03/15 10/30/18 History Docusate [Colace] 100 mg PO DAILY PRN 11/01/16 10/30/18 History Magnesium Chelated Zinc 1 tab PO DAILY 11/01/16 10/30/18 History Omeprazole [PriLOSEC] 20 mg PO DAILY PRN 11/01/16 10/30/18 History Cyanocobalamin (Vitamin B-12) 2,500 mcg PO DAILY 05/23/17 10/30/18 History [Vitamin B-12] Fish Oil 360mg 360 mg PO DAILY 01/29/18 10/30/18 History amLODIPine [Norvasc] 5 mg PO DAILY 01/29/18 10/30/18 History Isosorbide Mononitrate ER [Imdur] 30 mg PO DAILY #30 tab.er.24h 01/30/18 10/30/18 Rx Pantoprazole [Protonix] 40 mg PO AC-BRKFST #30 tablet.dr 01/30/18 10/30/18 Rx Atorvastatin [Lipitor] 40 mg PO HS 10/30/18 10/30/18 History Azithromycin [Zithromax Z-pack] See Taper PO DIRECTED 10/30/18 10/30/18 History Furosemide [Lasix] 20 mg PO DAILY 10/30/18 10/30/18 History Meclizine [Antivert] 25 mg PO TID PRN 10/30/18 10/30/18 History Allergies Allergy/AdvReac Type Severity Reaction Status Date / Time fluticasone [From Flonase] AdvReac FAINTING Verified 10/30/18 19:56 Physical Exam Vitals: Vital Signs Temp Pulse Pulse Resp BP Pulse Ox 11/05/18 16:00 98.2 F 52 L 17 157/79 93 L 11/05/18 12:00 98.1 F 55 L 17 134/81 95 11/05/18 08:45 98.0 F 56 L 15 153/86 95 11/05/18 04:00 97.5 F L 46 L 14 135/73 94 L 11/05/18 00:00 97.6 F 53 L 18 168/78 93 L 11/04/18 20:00 97.9 F 94 18 162/81 94 L Intake and Output 11/05/18 11/05/18 11/05/18 06:59 14:59 22:59 Intake Total 240 600 Balance 240 600 Intake: Oral 240 600 Other: Voiding Method Bedside Commode # Voids 3 1 3 Weight 103.9 kg Results 11/05/18 05:01 11/05/18 05:01 Cardiac Enzymes 11/05/18 Range/Units 05:01 AST 19 (17-59) U/L CBC 11/05/18 Range/Units 05:01 WBC 6.3 (3.8-10.6) k/uL RBC 3.92 L (4.30-5.90) m/uL Hgb 11.4 L (13.0-17.5) gm/dL Hct 36.2 L (39.0-53.0) % Plt Count 188 (150-450) k/uL Comprehensive Metabolic Panel 11/05/18 Range/Units 05:01 Sodium 140 (137-145) mmol/L Potassium 5.0 (3.5-5.1) mmol/L Chloride 108 H (98-107) mmol/L Carbon Dioxide 23 (22-30) mmol/L BUN 41 H (9-20) mg/dL Creatinine 1.74 H (0.66-1.25) mg/dL Glucose 111 H (74-99) mg/dL Calcium 9.0 (8.4-10.2) mg/dL AST 19 (17-59) U/L ALT 28 (21-72) U/L Alkaline Phosphatase 72 (38-126) U/L Total Protein 6.2 L (6.3-8.2) g/dL Albumin 3.6 (3.5-5.0) g/dL Current Medications Generic Name Dose Route Start Last Admin Trade Name Freq PRN Reason Stop Dose Admin Acetaminophen 500 mg 10/31/18 22:21 10/31/18 22:36 Tylenol Tab PO 500 mg Q6HR PRN Administration Fever and/ or Pain Al Hydroxide/Mg Hydroxide 30 ml 10/30/18 19:46 10/30/18 20:03 Maalox PO 30 ml Q4HR PRN Administration GI Upset Amiodarone HCl 400 mg 11/03/18 12:00 11/05/18 08:31 Cordarone PO 400 mg BID MICHAEL Administration Artificial Tears 1 drops 10/31/18 09:00 Artificial Tear Drops BOTH EYES DAILY PRN DRY EYES Ascorbic Acid 1,000 mg 10/31/18 09:00 11/05/18 08:31 Vitamin C PO 1,000 mg DAILY MICHAEL Administration Aspirin 81 mg 10/31/18 09:00 11/05/18 08:31 Aspirin PO 81 mg DAILY MICHAEL Administration Atorvastatin Calcium 40 mg 10/31/18 21:00 11/04/18 21:04 Lipitor PO 40 mg HS MICHAEL Administration Atropine Sulfate 2 drops 10/31/18 09:00 11/05/18 08:40 Isopto Atropine 1% 5ml RIGHT EYE 2 drops DAILY MICHAEL Administration Cefazolin Sodium 2 gm 11/06/18 06:00 Kefzol IVP 11/06/18 06:01 ONCE ONE Cyanocobalamin 2,500 mcg 10/31/18 09:00 11/05/18 08:31 Vitamin B-12 PO 2,500 mcg DAILY MICHAEL Administration Docusate Sodium 100 mg 10/31/18 09:00 Colace PO DAILY PRN Constipation Fenofibrate 160 mg 10/31/18 09:00 11/05/18 08:31 Lofibra PO 160 mg DAILY MICHAEL Administration Ferrous Sulfate 325 mg 10/31/18 09:00 11/04/18 08:58 Feosol PO 325 mg Q48H MICHAEL Administration Cefazolin Sodium 1,000 mg/ 250 mls @ 500 mls/hr 11/06/18 06:00 Sodium Chloride IRRIGATION 11/06/18 06:29 ONCE ONE Sodium Chloride 1,000 mls @ 50 mls/hr 11/06/18 06:00 Saline 0.9% IV .Q20H MICHAEL Sodium Chloride 1,000 mls @ 50 mls/hr 11/06/18 06:00 Saline 0.9% IV .Q20H MICHAEL Insulin Aspart 0 unit 10/31/18 07:30 11/05/18 17:10 Novolog SQ 2 unit ACHS MICHAEL Administration Protocol Isosorbide Mononitrate 30 mg 10/31/18 09:00 11/05/18 08:42 Imdur PO 30 mg DAILY MICHAEL Administration Lidocaine HCl 50 mg 11/02/18 03:44 Xylocaine (Cardiac) 2% Syringe IV ONCE PRN Ventricular Arrhythmia Meclizine HCl 25 mg 10/31/18 09:00 11/05/18 17:13 Antivert PO Not Given TID MICHAEL Metoprolol Tartrate 25 mg 11/03/18 21:00 11/05/18 08:31 Lopressor PO 25 mg BID MICHAEL Administration Mexiletine HCl 150 mg 11/03/18 16:00 11/05/18 17:10 Mexitil PO 150 mg Q8HR MICHAEL Administration Naloxone HCl 0.2 mg 10/30/18 20:44 Narcan IV Q2M PRN Opioid Reversal Pantoprazole Sodium 40 mg 11/02/18 07:30 11/05/18 06:29 Protonix PO 40 mg AC-BRKFST MICHAEL Administration Prednisolone Acetate 1 drops 10/31/18 09:00 11/05/18 08:40 Pred Forte 1% RIGHT EYE 1 drops DAILY MICHAEL Administration Temazepam 15 mg 10/30/18 23:10 11/05/18 00:37 Restoril PO 15 mg HS PRN Administration Insomnia Intake and Output 11/05/18 11/05/18 11/05/18 06:59 14:59 22:59 Intake Total 240 600 Balance 240 600 Intake: Oral 240 600 Other: Voiding Method Bedside Commode # Voids 3 1 3 Weight 103.9 kg 11/05/18 05:01 11/05/18 05:01
[2018-11-05] MEDS: ATORVASTATIN 40 MG TAB PO SCH (21:15)
[2018-11-05 21:23] LABS: Glucose,Whole Blood 123 mg/dL (75-99)
--- NOTE | 2018-11-05 22:35 | PN ---
PROGRESS NOTE DATE OF SERVICE: 11/05/2018 I am covering for Dr. Rascon. This 83-year-old gentleman who was admitted with renal failure also had significant ventricular tachycardia. The patient received amiodarone drip. The patient is also being evaluated for AICD at this time. The patient has left pleural effusion and atelectasis also. Renal function is being closely monitored. Patient monitored in ICU. The most recent chest x-ray which was personally reviewed by me showed bibasilar atelectasis and pleural effusion. PAST MEDICAL HISTORY: Reviewed. REVIEW OF SYSTEMS: CARDIOVASCULAR: As mentioned earlier. RESPIRATORY: As mentioned earlier. GI no nausea or vomiting. no dysuria. NERVOUS SYSTEM: No numbness or weakness. CURRENT MEDICATIONS: Reviewed and include: 1. Tylenol 500 mg q.6h p.r.n. 2. Maalox 30 mL q.4 p.r.n. 3. Cordarone. 4. Vitamin C 1000 mg daily. 5. Aspirin 81 mg daily. 6. Lipitor 40 mg q.h.s. 7. Kefzol 2 g once daily. 8. Cefazolin. 9. Vitamin B12 2.5 mcg daily. 10.Colace 100 mg p.o. daily. 11.Lo-fibrin. 12.Iron sulfate. 13.Imdur. 14.Antivert. 15.Lopressor. 16.Mexitil. 17.Narcan. 18.Protonix. 19.Restoril. PHYSICAL EXAM: GENERAL: Patient is alert, oriented x2. VITAL SIGNS: Pulse 56, blood pressure 153/83, respirations 15, temperature 98 degrees, pulse ox 94% on room air. HEENT: Conjunctivae normal. Oral mucosa moist. NECK is no jugular venous distention. No carotid bruit. No lymph node enlargement. CARDIOVASCULAR systems: S1, S2. RESPIRATION: Breath sounds diminished in the bases. A few scattered rhonchi. ABDOMEN: Soft, obese, nontender. LEGS: No edema. No swelling. NERVOUS SYSTEM: Higher functions as mentioned earlier. Moves all four extremities. No focal deficits. Lymphatics: No lymph nodes palpable in the neck, axillae or groin. SKIN: No ulcer, rash or bleeding. JOINTS: No active deforming arthropathy. LABS: WBC 6.3, hemoglobin 11.4, and creatinine 7.3. ASSESSMENT: 1. Acute renal failure with acute on chronic renal failure with possible chronic kidney stage 3 at baseline. 2. Monomorphic ventricular tachycardia. 3. Left side atelectasis. 4. Left pleural effusion. 5. History of coronary artery disease, coronary artery bypass grafting. 6. Diabetes mellitus type 2. 7. History of pneumonia, possible atelectasis. 8. Hypertension. 9. Hyperlipidemia. RECOMMENDATIONS AND DISCUSSION: Recommend to continue current medications, management and symptomatic treatment. Incentive spirometry. Otherwise, monitor fluid and electrolytes balance closely. Continue with amiodarone. Closely follow with Cardiology and pulmonology. Patient is on Kefzol at this time. Otherwise, cardiology planning AICD. 2D echo with Doppler done on 10/31/2018 showed ejection fraction 50-60 percent. The prognosis guarded because of multiple complex medical issues. Further recommendations to follow. MMODL / IJN: [id number] /
[2018-11-06] MEDS: MEXILETINE 150 MG CAP PO SCH ×3 (00:12→17:55)
[2018-11-06] MEDS: TEMAZEPAM 15 MG CAP PO PRN (00:13)
[2018-11-06 05:26] LABS: Anisocytosis Slight; Basophils # (A) 0.1 k/uL (0-0.2); Basophils % (A) 1 %; Eosinophils # (A) 0.6 k/uL (0-0.7); Eosinophils % (A) 9 %; HCT 36.4 % (39.0-53.0); HGB 11.8 gm/dL (13.0-17.5); Lymphocytes # (A) 1.1 k/uL (1.0-4.8); Lymphocytes % (A) 17 %; MCH 29.8 pg (25.0-35.0); MCHC 32.4 g/dL (31.0-37.0); Mean Platelet Volume 7.6; Monocytes # (A) 0.5 k/uL (0-1.0); Monocytes % (A) 8 %; Neutrophils # (A) 3.8 k/uL (1.3-7.7); Neutrophils % (A) 62 %; Platelet Count 182 k/uL (150-450); RBC 3.96 m/uL (4.30-5.90); RDW 16.7 % (11.5-15.5); WBC 6.2 k/uL (3.8-10.6)
[2018-11-06 05:37] LABS: Albumin 3.7 g/dL (3.5-5.0); Calcium 9.2 mg/dL (8.4-10.2); Magnesium 1.9 mg/dL (1.6-2.3); Phosphorus 3.1 mg/dL (2.5-4.5); Potassium 4.8 mmol/L (3.5-5.1); Total Bilirubin 0.4 mg/dL (0.2-1.3); Total Protein 6.3 g/dL (6.3-8.2)
[2018-11-06] MEDS ORDERED: ceFAZolin IN SWFI 2 GM/20 ML SYRINGE IVP ONE (06:00)
[2018-11-06] MEDS ORDERED: ceFAZolin 1,000 MG in SODIUM CHLORIDE 0.9% IRRIGATIO 250 ML IRRIGATION ONE (06:00)
[2018-11-06] MEDS ORDERED: SODIUM CHLORIDE 0.9% 1,000 ML IV SCH (06:00)
[2018-11-06 06:52] LABS: Glucose,Whole Blood 125 mg/dL (75-99)
[2018-11-06] MEDS: INSULIN ASPART (NovoLOG) 100 UNIT/ML VIAL SQ SCH ×4 (07:01→21:17)
[2018-11-06] MEDS: SODIUM CHLORIDE 0.9% 1,000 ML IV SCH (07:28)
[2018-11-06] MEDS: FERROUS SULFATE 325 MG TAB PO SCH (08:58)
[2018-11-06] MEDS: ISOSORBIDE MONONITRATE ER 30 MG TAB.ER.24H PO SCH (08:58)
[2018-11-06] MEDS: METOPROLOL TARTRATE 25 MG TAB PO SCH ×2 (08:58→21:19)
[2018-11-06] MEDS: ASCORBIC ACID 500 MG TAB PO SCH (08:59)
[2018-11-06] MEDS: MECLIZINE 25 MG TAB PO SCH ×3 (08:59→21:20)
[2018-11-06] MEDS: AMIODARONE 200 MG TAB PO SCH ×2 (08:59→21:18)
[2018-11-06] MEDS: CYANOCOBALAMIN 500 MCG TAB PO SCH (08:59)
[2018-11-06] MEDS: PANTOPRAZOLE 40 MG TABLET PO SCH (08:59)
[2018-11-06] MEDS: FENOFIBRATE 160 MG TAB PO SCH (08:59)
[2018-11-06] MEDS: ASPIRIN 81 MG PO SCH (08:59)
[2018-11-06] MEDS: ATROPINE OPHTH SOLN 1% 5ML BTL RIGHT EYE SCH (09:00)
[2018-11-06] MEDS: prednisoLONE ACETATE 1% OPHTH DROPS 5 ML BTL RIGHT EYE SCH (09:00)
--- NOTE | 2018-11-06 10:02 | P.PN ---
Subjective Patient is seen in follow-up for acute kidney injury on chronic kidney disease. Renal function is relatively stable. Creatinine 1.85. Patient has chronic kidney disease stage III with baseline creatinine in the range of 1.3-1.5 most likely secondary to diabetic kidney disease. Currently resting in bed. He has been voiding. No evidence of urinary retention. No vomiting or diarrhea. He is maintained on oral amiodarone now for arrhythmia. Heart rate is controlled. Scheduled for ICD implantation today. Vital signs are stable. General: The patient appeared well nourished and normally developed. HEENT: Head exam is unremarkable. Neck is without jugular venous distension. LUNGS: Lungs are clear to auscultation and percussion. Breath sounds decreased. HEART: Rate and Rhythm are regular. First and second heart sounds normal. No murmurs, rubs or gallops. ABDOMEN: Abdominal exam reveals normal bowel sounds. Non-tender and non-disten ded. No evidence of peritonitis. EXTREMITITES: No clubbing, cyanosis, or edema. Objective - Vital Signs Vital signs: Vital Signs Temp 97.9 F 11/06/18 08:00 Pulse 54 L 11/06/18 08:00 Resp 15 11/06/18 08:00 BP 165/91 11/06/18 08:00 Pulse Ox 95 11/06/18 08:00 Intake & Output 11/05/18 11/06/18 11/06/18 18:59 06:59 18:59 Intake Total 840 250 0 Balance 840 250 0 Weight 104.8 kg Intake: Oral 840 250 0 Other: Voiding Method Bedside Commode # Voids 3 3 1 - Labs CBC & Chem 7: 11/06/18 05:01 11/06/18 05:01 Labs: Abnormal Lab Results - Last 24 Hours (Table) 11/05/18 11/05/18 11/05/18 Range/Units 11:59 16:56 21:20 RBC (4.30-5.90) m/uL Hgb (13.0-17.5) gm/dL Hct (39.0-53.0) % RDW (11.5-15.5) % BUN (9-20) mg/dL Creatinine (0.66-1.25) mg/dL Glucose (74-99) mg/dL POC Glucose (mg/dL) 110 H 170 H 123 H (75-99) mg/dL 11/06/18 11/06/18 11/06/18 Range/Units 05:01 05:01 06:50 RBC 3.96 L (4.30-5.90) m/uL Hgb 11.8 L (13.0-17.5) gm/dL Hct 36.4 L (39.0-53.0) % RDW 16.7 H (11.5-15.5) % BUN 39 H (9-20) mg/dL Creatinine 1.85 H (0.66-1.25) mg/dL Glucose 113 H (74-99) mg/dL POC Glucose (mg/dL) 125 H (75-99) mg/dL Assessment and Plan Plan: Assessment: 1. Acute kidney injury most likely due to ATN. No evidence of urinary retention or obstructive uropathy. Renal function relatively stable. Creatinine 1.85 today. Patient does have sub-nephrotic range proteinuria. Will rule out GN - serologies have been negative except for double-stranded DNA antibody was intermediate with negative RUPERT. 2. Chronic kidney disease stage III most likely secondary to diabetic kidney disease with baseline creatinine in the range of 1.3-1.5. 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 3. Hyperkalemia secondary to acute kidney injury as well as potassium supplementation and lisinopril that he was taking. Stable. 4. Diabetes mellitus. 5. Hypertension with chronic kidney disease. Controlled. 6. Complex renal cysts. This will need to be followed outpatient. 7. Coronary artery disease status post CABG. 8. Nonsustained V. tach. Currently maintained on oral amiodarone. Cardiology following. Scheduled for ICD implantation today. Plan: Encouraged oral intake. Avoid nephrotoxins. Repeat electrolytes in the morning. Patient will need to follow-up outpatient in the next 1-2 weeks.
--- NOTE | 2018-11-06 11:03 | P.PN ---
Subjective Progress Note Date: 11/06/18 Principal diagnosis: Monomorphic ventricular tachycardia, left-sided lung atelectasis,, acute congestive heart failure, renal failure acute on chronic, hyperkalemia, coronary artery disease, hypertension hypertensive cardiovascular disease, diabetes mellitus, mood disorder depression, sleep disorder breathing and sleep apnea 11/06/2018, patient seen and evaluated examined during the rounds clinically doing well denies any cough or sputum production denies any shortness of breath patient is on room air saturating 95-96% x-ray reviewed labs reviewed, patient is scheduled for AICD placement at 1:00 11/05/2018, patient seen and evaluated examined during the rounds he has slight cough but no shortness of breath however shortness of breath is present during exertion he is considered not interfere candidate for cardiac cath and angiogram at this time due to renal functions, he is being evaluated for AICD placement, tentatively scheduled for tomorrow, he remains afebrile white cell count is normal denies any chest pain cough or shortness of breath, x-ray changes that was seen previously. Atelectasis changes and some fluid overload have improved previous x-ray, from pulmonary standpoint okay to precede AICD placement 11/04/2018, patient seen and evaluated examined during the rounds, he is the comfortable remains in sinus pericardia, denies any shortness of breath some exertional dyspnea is present also noted to have some bigeminy on exertion but at rest he remains in sinus rhythm no arrhythmia was noted overnight his breathing is improved, chest x-ray from today revealed left lower lobe atelectasis with trace effusion overall continued to improve, renal functions remains stable potassium is 5 BUN/creatinine is 42 and 1.71 11/03/2018, patient seen and evaluated examined during the rounds last night patient is still episodes of monomorphic ventricular tachycardia hemodynamic remained stable patient is mostly bradycardic labs reviewed x-ray from today re viewed as well the infiltrate seen at the left base are clearing up likely CHF- like changes atelectasis rather than pneumonia, and labs are reviewed hemoglobin remained stable renal functions showed BUN/creatinine 48 and 1.79, which is improved from yesterday labs reviewed medications reviewed him a critical care time spent 35 minutes This is an 83-year-old gentleman with history of CABG, CABG, diabetes mellitus, hypertension presented to the ER with complaints of generalized weakness, fatigue, mild exertional shortness of breath ,nausea, mid epigastric abdominal discomfort with sour taste in mouth for over a week. Denies fever or chills. Denies vomiting, diarrhea.EKG reporting normal sinus rhythm with frequent PVCs/bigeminy. Troponins negative 3, BNP 1180. Echo of 2018 reporting EF 45- 50%. BUN 51 Creatinine 2.18, potassium 5.5. UA negative.Received GI cocktail, aspirin, IV fluids calcium gluconate. Chest x-ray reporting left perihilar and left basilar opacity possible early pneumonia, atelectasis-patient reports occasional cough, nonproductive. Head CT reported no acute intracranial hemorrhage, no midline shift, old lacunar injury of the right external capsule, large left maxillary mucosal cyst of the ethimoid/right maxillary sinuses. Afebrile, normal WBCs. Received Rocephin, Zithromax, patient was admitted on medical floor, where he was found to have runs of ventricular tachycardia with the persistent ventricular tachycardia monomorphic require admission into the ICU patient was started on amiodarone drip thoughts were compared to the contemplated about cardioversion reverted back with amiodarone drip currently he is mildly short of breath denies any cough or sputum production denies any chest pain, his echocardiogram revealed ejection fraction of 55-60% Objective - Vital Signs Vital signs: Vital Signs Temp 97.9 F 11/06/18 08:00 Pulse 54 L 11/06/18 08:00 Resp 15 11/06/18 08:00 BP 165/91 11/06/18 08:00 Pulse Ox 95 11/06/18 08:00 Intake & Output 11/05/18 11/06/18 11/06/18 18:59 06:59 18:59 Intake Total 840 250 0 Balance 840 250 0 Weight 104.8 kg Intake: Oral 840 250 0 Other: Voiding Method Bedside Commode # Voids 3 3 1 - Exam - Constitutional General appearance: disheveled, morbidly obese, no acute distress - EENT Eyes: anicteric sclerae, EOMI, PERRLA, normal appearance Ears: bilateral: normal - Neck Neck: normal ROM Carotids: bilateral: upstroke normal - Respiratory Respiratory: bilateral: CTA, diminished, negative: dullness, rales, rhonchi, wheezing - Cardiovascular Rhythm: regular Heart sounds: normal: S1, S2 - Gastrointestinal General gastrointestinal: decreased bowel sounds, distended, normal bowel sounds, soft - Neurologic Neurologic: CNII-XII intact - Musculoskeletal Musculoskeletal: gait normal, generalized weakness, strength equal bilaterally - Psychiatric Psychiatric: A&O x's 3, appropriate affect, intact judgment & insight - Labs CBC & Chem 7: 11/06/18 05:01 11/06/18 05:01 Labs: Abnormal Lab Results - Last 24 Hours (Table) 11/05/18 11/05/18 11/05/18 Range/Units 11:59 16:56 21:20 RBC (4.30-5.90) m/uL Hgb (13.0-17.5) gm/dL Hct (39.0-53.0) % RDW (11.5-15.5) % BUN (9-20) mg/dL Creatinine (0.66-1.25) mg/dL Glucose (74-99) mg/dL POC Glucose (mg/dL) 110 H 170 H 123 H (75-99) mg/dL 11/06/18 11/06/18 11/06/18 Range/Units 05:01 05:01 06:50 RBC 3.96 L (4.30-5.90) m/uL Hgb 11.8 L (13.0-17.5) gm/dL Hct 36.4 L (39.0-53.0) % RDW 16.7 H (11.5-15.5) % BUN 39 H (9-20) mg/dL Creatinine 1.85 H (0.66-1.25) mg/dL Glucose 113 H (74-99) mg/dL POC Glucose (mg/dL) 125 H (75-99) mg/dL Assessment and Plan Assessment: Monomorphic ventricular tachycardia, recurrent nature now her rate has stabilized less frequent now now in sinus rhythm in fact more of a sinus bradycardia patient is being considered for AICD placement due to high risk of recurrent ventricular tachycardia and sudden cardiac Left-sided atelectasis versus changes related to congestive heart failure and fluid overload, less likely due to pneumonia will E patient off of antibiotics and observe clinical course closely white cell count stable Left pleural effusion, small in size Acute on chronic renal failure, renal functions are improving Mild hyperkalemia normalized now Coronary artery disease Diabetes mellitus Hypertension hypertensive cardiovascular disease Mood disorder and depression Nonspecific splenic lesion Plan: Okay to proceed AICD insertion from pulmonary standpoint I feel that the infiltrate that were noted before are more of atelectasis and fluid overload so we'll continue to hold antibiotics white cell count is normal Observe patient closely on amiodarone drip and subsequently will be changed by mouth later on today Monitor renal functions closely Deep breathing sense incentive spirometry Further recommendations pending plan of care as per clinical response of the patient Monitor off of Lexapro Checked EKG for QT prolongation, apparently QT interval appears to be normal on EKG its frequent PVCs noted Time with Patient: Greater than 30
[2018-11-06 12:09] LABS: Glucose,Whole Blood 113 mg/dL (75-99)
--- NOTE | 2018-11-06 13:24 | P.PN ---
Subjective Progress Note Date: 11/05/18 This 82-year-old gentleman was originally admitted with some renal failure. While in the hospital, Patient was noted to have sustained episodes of V. tach from which patient was symptomatic with dizziness and these episodes are controlled with IV metoprolol and mixed combination. His LV function appeared to be normal. He does have a history of ischemic heart disease at the previous bypass surgery and also right ventricular dysfunction. Discussed with Dr. Dorman and it was felt that is appropriate to proceed with AICD implantation for secondary prophylaxis. His potassium was normal. During the episodes of V. tach. Patient also has developed bradycardia after treatment with amiodarone. I'll proceed with dual-chamber AICD. Patient and family were explained the risks and benefits of the procedure Objective - Vital Signs Vital signs: Vital Signs Temp 97.9 F 11/06/18 08:00 Pulse 54 L 11/06/18 08:00 Resp 15 11/06/18 08:00 BP 165/91 11/06/18 08:00 Pulse Ox 95 11/06/18 08:00 Intake & Output 11/05/18 11/06/18 11/06/18 18:59 06:59 18:59 Intake Total 840 250 0 Balance 840 250 0 Weight 104.8 kg Intake: Oral 840 250 0 Other: Voiding Method Bedside Commode # Voids 3 3 1 - Exam GENERAL EXAM: Patient is alert and oriented and doesn't appear to be in any acute distress HEENT: Normocephalic. Normal reaction of pupils, equal size, normal range of extraocular motion. No erythema or exudates in the throat. NECK: No masses, no nuchal rigidity. CHEST: No chest wall deformity. LUNGS: Equal air entry with no crackles or wheeze. HEART: S1 and S2 normal with no audible mumurs or gallops. Regular rhythm, femorals equal on both sides.. ABDOMEN: No hepatosplenomegaly, normal bowel sounds, no guarding or rigidity. SKIN: No rashes CENTRAL NERVOUS SYSTEM: No focal deficits. EXTREMITIES: No cyanosis, clubbing or edema. - Labs CBC & Chem 7: 11/06/18 05:01 11/06/18 05:01 Labs: Abnormal Lab Results - Last 24 Hours (Table) 11/05/18 11/05/18 11/06/18 Range/Units 16:56 21:20 05:01 RBC 3.96 L (4.30-5.90) m/uL Hgb 11.8 L (13.0-17.5) gm/dL Hct 36.4 L (39.0-53.0) % RDW 16.7 H (11.5-15.5) % BUN (9-20) mg/dL Creatinine (0.66-1.25) mg/dL Glucose (74-99) mg/dL POC Glucose (mg/dL) 170 H 123 H (75-99) mg/dL 11/06/18 11/06/18 11/06/18 Range/Units 05:01 06:50 12:08 RBC (4.30-5.90) m/uL Hgb (13.0-17.5) gm/dL Hct (39.0-53.0) % RDW (11.5-15.5) % BUN 39 H (9-20) mg/dL Creatinine 1.85 H (0.66-1.25) mg/dL Glucose 113 H (74-99) mg/dL POC Glucose (mg/dL) 125 H 113 H (75-99) mg/dL Assessment and Plan (1) Sustained ventricular tachycardia Current Visit: Yes Status: Acute Code(s): I47.2 - VENTRICULAR TACHYCARDIA SNOMED Code(s): 743013670 (2) CAD (coronary artery disease) Current Visit: Yes Status: Acute Code(s): I25.10 - ATHSCL HEART DISEASE OF [place] CORONARY ARTERY W/O ANG PCTRS SNOMED Code(s): 75260591 (3) History of coronary artery bypass graft Current Visit: Yes Status: Acute Code(s): Z95.1 - PRESENCE OF AORTOCORONARY BYPASS GRAFT SNOMED Code(s): 179677708 Plan: We'll proceed with AICD implantation tomorrow. Meanwhile we'll continue the amiodarone and Mexitil
[2018-11-06] MEDS ORDERED: KETAMINE 10 MG/ML 20 ML VIAL ONE (13:28)
[2018-11-06] MEDS ORDERED: MIDAZOLAM 2 MG/2 ML VIAL ONE (13:28)
[2018-11-06] MEDS ORDERED: hydrALAZINE HCL 20 MG/ML 1 ML VIAL ONE (13:28)
[2018-11-06] MEDS ORDERED: PROPOFOL 10 MG/ML 20 ML VIAL IV ONE (13:28)
[2018-11-06] MEDS ORDERED: fentaNYL (PF) 50 MCG/ML 2 ML AMP ONE (13:28)
[2018-11-06] MEDS ORDERED: IOPAMIDOL-250 50ML BTL IV ONE (13:29)
[2018-11-06] MEDS ORDERED: IV FLUID CONTINUATION 1,000 ML IV ONE (13:36)
[2018-11-06] MEDS ORDERED: SODIUM CHLORIDE 0.9% 500 ML 500 ML IV ONE (13:38)
[2018-11-06] MEDS ORDERED: LIDOCAINE 1% INJ 10MG/ML (20 ML MDV) SQ ONE ×2 (13:43→14:03)
[2018-11-06] MEDS ORDERED: LIDOCAINE 1% INJ 10MG/ML (20 ML MDV) ONE ×2 (13:45→14:00)
[2018-11-06] MEDS ORDERED: HYDROcodone/APAP 5-325MG 1 EACH TAB PO PRN (14:50)
--- NOTE | 2018-11-06 15:06 | P.PCN ---
Date of Procedure: 11/06/18 Preoperative Diagnosis: Recurrent ventricular tachycardia episodes Postoperative Diagnosis: The same Procedure(s) Performed: Dual-chamber AICD implantation, axillary venography Description of Procedure: HISTORY: This is a 82-year-old gentleman with history of ischemic heart disease with previous bypass surgery was admitted to the hospital with the symptoms of tiredness and fatigue and evidence of renal failure. Patient also having episodes of dizziness. He was found to have runs of ventricular tachycardia up to 30 beats. This was treated with IV amiodarone followed by by mouth amiodarone and Mexitil controlled arrhythmias. In view of because of recurrent symptomatic ventricular tachycardia and known ischemic heart disease and also right ventricular dysfunction, patient is advised to have AICD implantation. Patient was also seen by Dr. Dorman ,the preventive maintenance engineer who recommended that patient should have AICD implantation for secondary prevention. CONSENT:I have discussed the risks, benefits and alternative therapies for the above-mentioned procedure and for both sedation/analgesia as well as necessary blood product administration, if indicated, as they pertain to this patient. The patient has indicated understanding and acceptance of the risks and procedures discussed. PROCEDURE: Patient was brought to the lab in a fasting state. Patient was prepped and draped in the usual fashion. Patient was given IV sedation by department of anesthesia The skin below the left clavicle was infiltrated with lidocaine. An incision was made parallel to deltopectoral groove was deepened until the pectoral fascia was exposed. A pocket was created by blunt dissection and cautery. Axillary venography was performed to delineate the course of the axillary vein. 2 sticks were performed into extrathoracic portion of the axillary vein and 2 sheaths were advanced over the guidewires and left in subclavian vein. Conscious Sedation: Provided by department of anesthesia Duration 62minutes LEADS: ATRIAL: This is manufactured by [employer]. Model number is [id number]. Serial number is [id number] VENTRICULAR: THIS IS MANUFACTURED BY [employer]. MODEL N UMBER IS [id number] and the serial number is [id number]. THE DEVICE: This is manufactured by [employer]. Model number is [id number] and the serial number is [id number]. The ventricular lead is maneuvered l with help of a straight and curved stylets into the left ventricle apical region. Satisfactory position was obtained and threshold measurements were made. The atrial lead was then maneuvered into the right atrial lateral wall. The leads were screwed in And thresholds were obtained. THRESHOLDS: ATRIUM:. The minimal threshold for pacing was 1 V at pulse width of 0.5 with impedance of 616 P-wave: 2 mV VENTRICLE: The minimum patient threshold was 0.9 at pulse width of 0.5 with impedance of 722. R-wave: 13.9 The leads and pulse generator remained in the pocket after it was washed with antibiotics. Pocket was closed in the usual fashion. The fascia was closed with 2-0 Prolene ,the subcutaneous tissue was closed with 3-0 Prolene and the skin was closed with 4-0 Prolene. DFT TESTING: Patient was given deep anesthesia by department of anesthesia. Ventricular fibrillation was induced with T shock. This was appropriately detected without any dropouts at least sensitivity. 15 J shock converted patient back to sinus rhythm. Patient tolerated the procedure well PROGRAMMING: BRADYCARDIA THERAPY: MODE: AAIR to DDDR RATE: 60-110 OUTPUT: Atrium : 3.5 Ventricle: 3.5 V TACHYCARDIA THERAPY: VF zone was programmed to a rate of 200. The initial therapies programmed to 25 J followed by 355. Monitor zone is programmed to a rate of 150 FINAL IMPRESSION:. #1. Axillary venography #2. Successful implantation of dual-chamber pacemaker #3. Axillary venography COMPLICATIONS: None PLAN:. Patient will be monitored on the telemetry unit. Prophylactic anti biotic be continued. Chest x-ray in the morning
[2018-11-06 16:57] LABS: Glucose,Whole Blood 101 mg/dL (75-99)
--- NOTE | 2018-11-06 17:54 | PN ---
PROGRESS NOTE DATE OF SERVICE: 11/06/2018. I am covering Dr. Rascon. This 83-year-old gentleman was admitted with renal failure. Patient also had ventricular tachycardia. The patient was evaluated by Cardiology and Pulmonology and as well as Nephrology and Cardiology is planning on AICD implantation for secondary prophylaxis. The patient closely monitored. PAST MEDICAL HISTORY: Reviewed. REVIEW OF SYSTEMS: CARDIOVASCULAR: As mentioned. RESPIRATORY: As mentioned earlier. GI: No nausea. : No dysuria. NERVOUS SYSTEM: No numbness. CURRENT MEDICATIONS: Reviewed and include: 1. Tylenol 500 mg q.6h. 2. Maalox. 3. Cordarone 150. 4. Aspirin. 5. Lipitor. 6. Isopto. 7. Vitamin B12. 8. Colace. 9. Lofibra. 10.Iron sulfate. 11.NovoLog. 12.Imdur. 13.Antivert. 14.Lopressor. 15.Mexitil. 16.Narcan. 17.Protonix. 18.Restoril. PHYSICAL EXAM: Patient is alert, oriented x3. Pulse 49, blood pressure 150/70, respiration 13, temperature 97.2, pulse ox 98% on room air. HEENT: Conjunctivae normal. NECK: No jugular venous distention. CARDIOVASCULAR: S1, S2 muffled. RESPIRATORY: Breath sounds diminished in the bases. A few scattered rhonchi and crackles. ABDOMEN: Soft, obese, nontender. LEGS: No edema. No swelling. NERVOUS SYSTEM: No focal deficits. LABS: At this time WBC 9.6, hemoglobin 11.8, creatinine is 1.85. ASSESSMENT: 1. Acute renal failure with acute on chronic renal failure with possible baseline chronic kidney stage III. 2. Monomorphic ventricular tachycardia for AICD placement. 3. Left-sided atelectasis. 4. Left pleural effusion. 5. Coronary artery disease, CABG history. 6. Diabetes mellitus type 2. 7. History of pneumonia, possible atelectasis. 8. Hypertension. 9. Hyperlipidemia. RECOMMENDATIONS AND DISCUSSION: I recommend to continue current medications, management and symptomatic treatment. Repeat labs. AICD. Continue the rest of medications. Medication reconciliation was done. Closely follow. Prognosis guarded. Discussed with the patient. The patient's is in [place] at this time. The patient should be able to return home. Dr. Tyson Rascon will follow tomorrow. MMODL / IJN: [id number] /
[2018-11-06] MEDS: ceFAZolin IN SWFI 2 GM/20 ML SYRINGE IVP SCH (17:56)
[2018-11-06 20:35] LABS: Glucose,Whole Blood 181 mg/dL (75-99)
[2018-11-06] MEDS: ATORVASTATIN 40 MG TAB PO SCH (21:19)
[2018-11-07] MEDS: ceFAZolin IN SWFI 2 GM/20 ML SYRINGE IVP SCH ×3 (00:08→15:21)
[2018-11-07] MEDS: MEXILETINE 150 MG CAP PO SCH ×2 (00:08→08:38)
[2018-11-07] MEDS: MAG HYDROX/AL HYDROX/SIMETH 30 ML CUP PO PRN (00:08)
[2018-11-07] MEDS: SODIUM CHLORIDE 0.9% 1,000 ML IV SCH (00:32)
[2018-11-07] MEDS ORDERED: amLODIPine 5 MG TAB PO STA (04:08)
[2018-11-07 05:47] LABS: Basophils % (A) 0 %; Eosinophils # (A) 0.5 k/uL (0-0.7); Eosinophils % (A) 7 %; HCT 36.5 % (39.0-53.0); HGB 11.5 gm/dL (13.0-17.5); Lymphocytes # (A) 0.6 k/uL (1.0-4.8); Lymphocytes % (A) 8 %; MCHC 31.6 g/dL (31.0-37.0); MCV 91.7 fL (80.0-100.0); Mean Platelet Volume 7.4; Monocytes # (A) 0.6 k/uL (0-1.0); Monocytes % (A) 8 %; Neutrophils # (A) 5.6 k/uL (1.3-7.7); Neutrophils % (A) 75 %; Platelet Count 160 k/uL (150-450); RBC 3.99 m/uL (4.30-5.90); RDW 15.6 % (11.5-15.5); WBC 7.5 k/uL (3.8-10.6)
[2018-11-07 06:10] LABS: Albumin 3.7 g/dL (3.5-5.0); Calcium 9.5 mg/dL (8.4-10.2); Magnesium 1.8 mg/dL (1.6-2.3); Phosphorus 3.3 mg/dL (2.5-4.5); Potassium 5.3 mmol/L (3.5-5.1); Total Bilirubin 0.5 mg/dL (0.2-1.3); Total Protein 6.4 g/dL (6.3-8.2)
[2018-11-07 06:51] LABS: Glucose,Whole Blood 138 mg/dL (75-99)
[2018-11-07] MEDS: INSULIN ASPART (NovoLOG) 100 UNIT/ML VIAL SQ SCH ×2 (06:58→15:19)
[2018-11-07] MEDS: PANTOPRAZOLE 40 MG TABLET PO SCH (06:58)
--- NOTE | 2018-11-07 07:20 | XR ---
EXAMINATION TYPE: XR chest 2V DATE OF EXAM: 11/07/2018 COMPARISON: 11/04/2018 HISTORY: Lead placement check TECHNIQUE: Frontal and lateral views of the chest are obtained. FINDINGS: There is a dual-lead left-sided cardiac device with a nosebleed and intraventricular bleed in place. No postprocedural pneumothorax. Chronic pleural reaction is seen bilaterally along the low er lungs. Similar left basal atelectasis in comparison to the prior. Post CABG changes of the chest a re noted with enlarged cardiac mediastinal silhouette. Very trace left pleural effusion is unchanged. Moderate degenerative changes of the spine and glenohumeral joints are seen. Pulmonary hyperinflatio n represents underlying COPD. IMPRESSION: Persistent trace left pleural effusion and left basilar atelectasis. New dual lead left- sided cardiac device is described above. No postprocedural pneumothorax.
[2018-11-07] MEDS: AMIODARONE 200 MG TAB PO SCH (08:39)
[2018-11-07] MEDS: ASCORBIC ACID 500 MG TAB PO SCH (08:40)
[2018-11-07] MEDS: ASPIRIN 81 MG PO SCH (08:42)
[2018-11-07] MEDS: MECLIZINE 25 MG TAB PO SCH (08:43)
[2018-11-07] MEDS: FENOFIBRATE 160 MG TAB PO SCH (08:43)
[2018-11-07] MEDS: METOPROLOL TARTRATE 25 MG TAB PO SCH (08:43)
[2018-11-07] MEDS: CYANOCOBALAMIN 500 MCG TAB PO SCH (08:43)
[2018-11-07] MEDS: ISOSORBIDE MONONITRATE ER 30 MG TAB.ER.24H PO SCH (08:43)
[2018-11-07] MEDS: ATROPINE OPHTH SOLN 1% 5ML BTL RIGHT EYE SCH (08:47)
[2018-11-07] MEDS ORDERED: amLODIPine 5 MG TAB PO SCH ×2 (09:00→21:00)
[2018-11-07] MEDS: prednisoLONE ACETATE 1% OPHTH DROPS 5 ML BTL RIGHT EYE SCH (09:11)
--- NOTE | 2018-11-07 11:05 | P.PN ---
Subjective Progress Note Date: 11/07/18 This 82-year-old gentleman was originally admitted with some renal failure. While in the hospital, Patient was noted to have sustained episodes of V. tach from which patient was symptomatic with dizziness and these episodes are controlled with IV metoprolol and mixed combination. His LV function appeared to be normal. He does have a history of ischemic heart disease at the previous bypass surgery and also right ventricular dysfunction. Discussed with Dr. Dorman and it was felt that is appropriate to proceed with AICD implantation for secondary prophylaxis. His potassium was normal. During the episodes of V. tach. Patient also has developed bradycardia after treatment with amiodarone. I'll proceed with dual-chamber AICD. Patient and family were explained the risks and benefits of the procedure. 11/07/2018: This patient is admitted to the hospital with the renal failure and dehydration. He was found to have evidence recurrent nonsustained ventricular tachycardia and also long sustained V. tach. Patient was treated with amiodarone and Mexitil with control of his rhythms. Patient was seen by Dr. Dorman who recommended the patient have AICD implantation. Patient had procedure done yesterday. Patient tolerated the procedure well. The device is functioning normally. The lead appeared to be in the appropriate position. Lungs are clear. Heart is regular. His lab work showed a creatinine of 1.68 which is better than before. Objective - Vital Signs Vital signs: Vital Signs Temp 98 F 11/07/18 09:00 Pulse 59 L 11/07/18 09:00 Resp 14 11/07/18 09:00 BP 164/86 11/07/18 09:00 Pulse Ox 93 L 11/07/18 09:00 Intake & Output 11/06/18 11/07/18 11/07/18 18:59 06:59 18:59 Intake Total 1200 800 Output Total 1452 Balance 1200 -652 Weight 104.9 kg Intake: IV 700 650 Sodium Chloride 0.9% 1, 400 650 000 ml @ 50 mls/hr IV . Q20H [facility] Rx#:[id number] Oral 500 150 Output: Urine 1452 Other: Voiding Method Bedside Commode # Voids 2 3 - Exam GENERAL EXAM: Patient is alert and oriented and doesn't appear to be in any acute distress HEENT: Normocephalic. Normal reaction of pupils, equal size, normal range of extraocular motion. No erythema or exudates in the throat. NECK: No masses, no nuchal rigidity. CHEST: No chest wall deformity. LUNGS: Equal air entry with no crackles or wheeze. HEART: S1 and S2 normal with no audible mumurs or gallops. Regular rhythm, femorals equal on both sides.. ABDOMEN: No hepatosplenomegaly, normal bowel sounds, no guarding or rigidity. SKIN: No rashes CENTRAL NERVOUS SYSTEM: No focal deficits. EXTREMITIES: No cyanosis, clubbing or edema. - Labs CBC & Chem 7: 11/07/18 05:32 11/07/18 05:32 Labs: Abnormal Lab Results - Last 24 Hours (Table) 11/06/18 11/06/18 11/06/18 Range/Units 12:08 16:55 20:35 RBC (4.30-5.90) m/uL Hgb (13.0-17.5) gm/dL Hct (39.0-53.0) % RDW (11.5-15.5) % Lymphocytes # (1.0-4.8) k/uL Potassium (3.5-5.1) mmol/L BUN (9-20) mg/dL Creatinine (0.66-1.25) mg/dL Glucose (74-99) mg/dL POC Glucose (mg/dL) 113 H 101 H 181 H (75-99) mg/dL 11/07/18 11/07/18 11/07/18 Range/Units 05:32 05:32 06:50 RBC 3.99 L (4.30-5.90) m/uL Hgb 11.5 L (13.0-17.5) gm/dL Hct 36.5 L (39.0-53.0) % RDW 15.6 H (11.5-15.5) % Lymphocytes # 0.6 L (1.0-4.8) k/uL Potassium 5.3 H (3.5-5.1) mmol/L BUN 32 H (9-20) mg/dL Creatinine 1.68 H (0.66-1.25) mg/dL Glucose 110 H (74-99) mg/dL POC Glucose (mg/dL) 138 H (75-99) mg/dL Assessment and Plan (1) Sustained ventricular tachycardia Current Visit: Yes Status: Acute Code(s): I47.2 - VENTRICULAR TACHYCARDIA SNOMED Code(s): 915002321 (2) CAD (coronary artery disease) Current Visit: Yes Status: Acute Code(s): I25.10 - ATHSCL HEART DISEASE OF [place] CORONARY ARTERY W/O ANG PCTRS SNOMED Code(s): 79715874 (3) History of coronary artery bypass graft Current Visit: Yes Status: Acute Code(s): Z95.1 - PRESENCE OF AORTOCORONARY BYPASS GRAFT SNOMED Code(s): 661929952 Plan: Patient is status post AICD placement. Clinically stable. Device is functioning normally. Chest x-ray stable without any pneumothorax. His creatinine is better at 1.68. We'll increase activity as tolerated. Patient lives by himself and may need some social help. immigration services officer are looking into it. Meanwhile, I will increase the dose of the amlodipine to 5 mg by mouth twice a day
[2018-11-07 11:55] LABS: Glucose,Whole Blood 101 mg/dL (75-99)
--- NOTE | 2018-11-07 14:41 | P.PN ---
Subjective Progress Note Date: 11/07/18 This is an 83-year-old gentleman with history of CABG, CABG, diabetes mellitus, hypertension presented to the ER with complaints of generalized weakness, fatigue, mild exertional shortness of breath ,nausea, mid epigastric abdominal discomfort with sour taste in mouth for over a week. Denies fever or chills. Denies vomiting, diarrhea.EKG reporting normal sinus rhythm with frequent PVCs/bigeminy. Troponins negative 3, BNP 1180. Echo of 2018 reporting EF 45- 50%. BUN 51 Creatinine 2.18, potassium 5.5. UA negative.Received GI cocktail, aspirin, IV fluids calcium gluconate. Chest x-ray reporting left perihilar and left basilar opacity possible early pneumonia, atelectasis-patient reports occasional cough, nonproductive. Head CT reported no acute intracranial hemorrhage, no midline shift, old lacunar injury of the right external capsule, large left maxillary mucosal cyst of the ethimoid/right maxillary sinuses. Afebrile, normal WBCs. Received Rocephin, Zithromax. Cardiology and nephrology consulted. 11/01/18 Complained of left hand arthritis pain throughout the night,relief with Tylenol. Creatinine 2.24 , potassium improved, 4.9.Depressed this morning, not eating, related to his concern over his kidney function as well as personal stressors. Blood sugars controlled. Renal ultrasound reporting multiple right renal cysts, measuring up to 6.1 cm, simple and benign appearance, incidental finding of splenic hypoechoic lesion measuring 3.0 x 2.8 x 3.0 cm. 11/02/2018 developed several runs of nonsustained ,asymptomatic V. 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 Transferred to ICU, bolused with IV amiodarone. Now on amiodarone drip. Magnesium 2.4 yesterday, currently 2.1 .Yesterday patient had been started on Lexapro, received 1 dose; that has been discontinued related to potential QT prolongation effects. Telemetry currently sinus rhythm with PVCs, occasional junctional. Echo reporting normal LV function, mild aortic stenosis. Renal function improving ,creatinine 2.06. CT of abdomen regarding possible spleen lesion noted on ultrasound, not seen, hepatic steatosis, numerous gallstones, minimally complex renal cysts with septation of the right inferior pole lesion with no hydronephrosis, no nephrolithiasis, moderate fecal stasis,.Positive bowel movement yesterday. Denies chest pain, palpitations or increased shortness of breath. 11/03/18 maintained on amiodarone drip. Last night had a 30 beat nonsustained, asymptomatic run of V. tach. Magnesium 1.9. Currently sinus bradycardia with PVCs/junctional appearing occasionally. Renal function continues to improve, down to 1.79. Maintaining O2 sats in the mid 90s on room air. Denies lightheadedness dizziness or focal deficits. Denies chest pain, palpitations or shortness of breath. 11/04/2018 no further runs of V. tach. Converted to oral amiodarone with Mexiletine and beta siddhartha . Creatinine 1.71. Cardiology discussing cardiac catheterization with AICD versus medical management. Patient indecisive. Patient's own multigrapher, Dr. Gentile, rounding tomorrow and will further discuss with him. Sinus bradycardia. Denies chest pain, palpitations or shortn ess of breath. Denies lightheadedness dizziness or focal deficits. Afebrile, normal WBC. Chest x-ray reporting similar left basilar airspace disease likely atelectasis with unchanged trace left pleural effusion. Maintaining O2 sats of 93-95% on room air. 11/07/2018 status post AICD placement, tolerated procedure well. Chest x-ray reporting no pneumothorax. Maintained on amiodarone and Mexitil with no further runs of V. tach. Creatinine 1.68. Hypertensive, Norvasc dose increased. Objective - Vital Signs Vital signs: Vital Signs Temp 98.5 F 11/07/18 12:00 Pulse 61 11/07/18 14:00 Resp 18 11/07/18 14:00 BP 143/77 11/07/18 13:00 Pulse Ox 96 11/07/18 12:00 Intake & Output 11/06/18 11/07/18 11/07/18 18:59 06:59 18:59 Intake Total 1200 800 Output Total 1452 Balance 1200 -652 Weight 104.9 kg Intake: IV 700 650 Sodium Chloride 0.9% 1, 400 650 000 ml @ 50 mls/hr IV . Q20H MICHAEL Rx#:[id number] Oral 500 150 Output: Urine 1452 Other: Voiding Method Bedside Commode # Voids 2 3 - Exam VITAL SIGNS: As above GENERAL: Sitting up in bed, no acute distress HEENT: Head atraumatic ,Conjunctivae normal. Oral mucosa moist NECK: No JVD. No thyroid enlargement. No LNs CARDIOVASCULAR: S1, S2 regular,systolic murmur, no gallops, no rubs. RESPIRATION: Respiratory effort normal , unlabored .Breath sounds diminished in the bases. No rhonchi or crackles. No wheezing, ABDOMEN: Soft, nontender . No guarding. no masses palpable. Bowel sounds heard. LEGS: No edema. no swelling PSYCHIATRY: Alert and oriented X 3, mood and affect depressed appearing NERVOUS SYSTEM: Cranial N 2-12 grossly normal. Moves all 4 limbs. Diffuse weakness No focal deficits. Strength and sensation grossly intact. Skin: no lesions, no rash - Labs CBC & Chem 7: 11/07/18 05:32 11/07/18 05:32 Labs: Abnormal Lab Results - Last 24 Hours (Table) 11/06/18 11/06/18 11/07/18 Range/Units 16:55 20:35 05:32 RBC 3.99 L (4.30-5.90) m/uL Hgb 11.5 L (13.0-17.5) gm/dL Hct 36.5 L (39.0-53.0) % RDW 15.6 H (11.5-15.5) % Lymphocytes # 0.6 L (1.0-4.8) k/uL Potassium (3.5-5.1) mmol/L BUN (9-20) mg/dL Creatinine (0.66-1.25) mg/dL Glucose (74-99) mg/dL POC Glucose (mg/dL) 101 H 181 H (75-99) mg/dL 11/07/18 11/07/18 11/07/18 Range/Units 05:32 06:50 11:53 RBC (4.30-5.90) m/uL Hgb (13.0-17.5) gm/dL Hct (39.0-53.0) % RDW (11.5-15.5) % Lymphocytes # (1.0-4.8) k/uL Potassium 5.3 H (3.5-5.1) mmol/L BUN 32 H (9-20) mg/dL Creatinine 1.68 H (0.66-1.25) mg/dL Glucose 110 H (74-99) mg/dL POC Glucose (mg/dL) 138 H 101 H (75-99) mg/dL Assessment and Plan Assessment: -Acute renal failure, prerenal in a patient on metformin and Zestoretic -placed on hold, possibly ATN. -Chronic kidney disease, stage III secondary to diabetes mellitus, baseline 1.3-1.5 -Hyperkalemia secondary to acute renal failure, resolved -Nonsustained,Sustained asymptomatic V. tach, S/P amiodarone drip -Bradycardia -CAD with history of CABG -Diabetes mellitus -Left Sided atelectasis with small left pleural effusion, doubt pneumonia -Hypertension -Hyperlipidemia -Depression -Multiple renal cysts, benign appearing, follow-up CT in 6 months. -Splenic lesion, incidental finding on ultrasound, not reported on CT -Bibasilar atelectasis -Hepatic steatosis -Gallstones Plan: Continue on current medication regime ,monitoring and symptomatic treatment. Norvasc dose increased, continue monitoring overnight . Close monitoring of electrolytes and renal function with repeat labs ordered for a.m. aggressive pulmonary toileting with incentive spirometer reinforced. Cleared by nephrology for discharge. Discharge planning in progress for tomorrow pending cardiology clearance. The impression and plan of care has been dictated as directed. : I performed a history and examination of this patient, discussed the same with the dictator. I agree with the dictator's note ,documented as a scribe. Any additional findings or plans will be noted.
--- NOTE | 2018-11-07 15:44 | P.DS ---
Providers Date of admission: 10/30/18 20:48 Expected date of discharge: 11/07/18 Attending physician: Tyson Rascon Consults: 10/30/18 20:45 Consult Physician Routine Consulting Provider: Gage Serrano Consult Reason/Comments: CHF, weakness, bigeminy Do you want consulting provider notified?: Yes 10/30/18 20:46 Consult Physician Routine Consulting Provider: Nina Mccarthy Consult Reason/Comments: hyperkalemia, EVELYNE Do you want consulting provider notified?: Yes 11/02/18 00:38 Consult Physician Routine Consulting Provider: Thaddeus Escoto Consult Reason/Comments: Frequent runs VTACH Do you want consulting provider notified?: Yes, Notify in am 11/02/18 14:57 Consult Physician Routine Consulting Provider: Montez San Consult Reason/Comments: vtach sustained episodes Do you want consulting provider notified?: Already Contacted Primary care physician: Tyson Rascon Hospital Course: Final Diagnoses: -Acute renal failure, prerenal in a patient on metformin and Zestoretic -placed on hold, possibly ATN. -Chronic kidney disease, stage III secondary to diabetes mellitus, baseline 1.3- 1.5 -Hyperkalemia secondary to acute renal failure, resolved -Nonsustained and sustained asymptomatic V. tach, S/P amiodarone drip, status post AICD placement -Bradycardia -CAD with history of CABG -Diabetes mellitus -Left Sided atelectasis with small left pleural effusion, doubt pneumonia -Hypertension -Hyperlipidemia -Depression -Multiple renal cysts, benign appearing, follow-up CT in 6 months. -Splenic lesion, incidental finding on ultrasound, not reported on CT -Bibasilar atelectasis -Hepatic steatosis -Gallstones Hospital course:This is an 83-year-old gentleman with history of CABG, CABG, diabetes mellitus, hypertension presented to the ER with complaints of ge neralized weakness, fatigue, mild exertional shortness of breath ,nausea, mid epigastric abdominal discomfort with sour taste in mouth for over a week. Denies fever or chills. Denies vomiting, diarrhea.EKG reporting normal sinus rhythm with frequent PVCs/bigeminy. Troponins negative 3, BNP 1180. Echo of 2018 reporting EF 45-50%. BUN 51 Creatinine 2.18, potassium 5.5. UA negative.Received GI cocktail, aspirin, IV fluids calcium gluconate. Chest x- ray reporting left perihilar and left basilar opacity possible early pneumonia, atelectasis-patient reports occasional cough, nonproductive. Head CT reported no acute intracranial hemorrhage, no midline shift, old lacunar injury of the right external capsule, large left maxillary mucosal cyst of the ethimoid/right maxillary sinuses. Afebrile, normal WBCs. Received Rocephin, Zithromax. Cardiology and nephrology consulted. 11/01/18 Complained of left hand arthritis pain throughout the night,relief with Tylenol. Creatinine 2.24 , potassium improved, 4.9.Depressed this morning, not eating, related to his concern over his kidney function as well as personal stressors. Blood sugars controlled. Renal ultrasound reporting multiple right r enal cysts, measuring up to 6.1 cm, simple and benign appearance, incidental finding of splenic hypoechoic lesion measuring 3.0 x 2.8 x 3.0 cm. 11/02/2018 developed several runs of nonsustained ,asymptomatic V. 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 Transferred to ICU, bolused with IV amiodarone. Now on amiodarone drip. Magnesium 2.4 yesterday, currently 2.1 .Yesterday patient had been started on Lexapro, received 1 dose; that has been discontinued related to potential QT prolongation effects. Telemetry currently sinus rhythm with PVCs, occasional junctional. Echo reporting normal LV function, mild aortic stenosis. Renal function improving ,creatinine 2.06. CT of abdomen regarding possible spleen lesion noted on ultrasound, not seen, hepatic steatosis, numerous gallstones, minimally complex renal cysts with septation of the right inferior pole lesion with no hydronephrosis, no nephrolithiasis, moderate fecal stasis,.Positive bowel movement yesterday. Denies chest pain, palpitations or increased shortness of breath. 11/03/18 maintained on amiodarone drip. Last night had a 30 beat nonsustained, asymptomatic run of V. tach. Magnesium 1.9. Currently sinus bradycardia with PVCs/junctional appearing occasionally. Renal function continues to improve, down to 1.79. Maintaining O2 sats in the mid 90s on room air. Denies lightheadedness dizziness or focal deficits. Denies chest pain, palpitations or shortness of breath. 11/14/2018 no further runs of V. tach. Converted to oral amiodarone with Mexiletine and beta siddhartha . Creatinine 1.71. Cardiology discussing cardiac catheterization with AICD versus medical management. Patient indecisive. Patient's own automatic profile shaper operator, Dr. Gentile, rounding tomorrow and will further discuss with him. Sinus bradycardia. Denies chest pain, palpitations or shortness of breath. Denies lightheadedness dizziness or focal deficits. Afebrile, normal WBC. Chest x-ray reporting similar left basilar airspace disease likely atelectasis with unchanged trace left pleural effusion. Maintaining O2 sats of 93-95% on room air. Maintained on oral antiarrhythmics, status post AICD. No further runs of V. tach. Telemetry sinus rhythm, creatinine 1.68. Denies lightheadedness dizziness or focal deficits. Denies chest pain, palpitations or shortness of breath. Significant clinical improvement .Cleared by nephrology for discharge. Patient will be discharged home in a stable condition with guarded prognosis pending discharge antiarrhythmics, clearance from cardiology. Exam GENERAL: Alert and oriented 3, no acute distress CARDIOVASCULAR: S1, S2 regular,systolic murmur, no gallops, no rubs. RESPIRATION: Respiratory effort normal , unlabored .Breath sounds diminished in the bases. ABDOMEN: Soft, nontender . No guarding. no masses palpable. Bowel sounds heard. NERVOUS SYSTEM: No focal deficits. The impression and plan of care has been dictated as directed. : I performed a history and examination of this patient, discussed the same with the dictator. I agree with the dictator's note ,documented as a scribe. Any additional findings or plans will be noted. Time taken: 35 minutes Patient Condition at Discharge: Stable Plan - Discharge Summary Discharge Rx Participant: No New Discharge Prescriptions: New Metoprolol Tartrate [Lopressor] 25 mg PO BID #60 tab Acetaminophen Tab [Tylenol] 500 mg PO Q6HR PRN tab PRN Reason: Fever And/ Or Pain Continue prednisoLONE ACETATE 1% OPHTH [Pred Forte 1%] 1 drops RIGHT EYE DAILY Aspirin EC [Ecotrin Low Dose] 81 mg PO DAILY Ascorbic Acid [Vitamin C] 1,000 mg PO DAILY sitaGLIPtin [Januvia] 50 mg PO DAILY Temazepam [Restoril] 15 mg PO HS PRN PRN Reason: Insomnia Ferrous Sulfate [Feosol] 325 mg PO Q48H Fenofibrate Nanocrystallized [Tricor] 145 mg PO DAILY Propylene Glycol/Peg 400/Pf [Systane 0.3-0.4% Eye Drops] 1 drop BOTH EYES DAILY PRN PRN Reason: DRY EYES Atropine Ophth Soln 1% 5Ml [Isopto Atropine 1% 5Ml] 2 drops RIGHT EYE DAILY Docusate [Colace] 100 mg PO DAILY PRN PRN Reason: Constipation Magnesium Chelated Zinc 1 tab PO DAILY Omeprazole [PriLOSEC] 20 mg PO DAILY PRN PRN Reason: Heartburn Cyanocobalamin (Vitamin B-12) [Vitamin B-12] 2,500 mcg PO DAILY amLODIPine [Norvasc] 5 mg PO DAILY Fish Oil 360mg 360 mg PO DAILY Isosorbide Mononitrate ER [Imdur] 30 mg PO DAILY #30 tab.er.24h Pantoprazole [Protonix] 40 mg PO AC-BRKFST #30 tablet. Atorvastatin [Lipitor] 40 mg PO HS Changed Meclizine [Antivert] 12.5 mg PO TID PRN #0 PRN Reason: DIZZINESS Discontinued metFORMIN HCL 500 mg PO AC-SUPPER Metoprolol Tartrate [Lopressor] 50 mg PO DAILY Lisinopril-Hctz 20-25 mg [Zestoretic 20-25] 1 tab PO DAILY Discharge Medication List Ascorbic Acid [Vitamin C] 1,000 mg PO DAILY 04/03/15 [History] Aspirin EC [Ecotrin Low Dose] 81 mg PO DAILY 04/03/15 [History] Atropine Ophth Soln 1% 5Ml [Isopto Atropine 1% 5Ml] 2 drops RIGHT EYE DAILY 04/03/15 [History] Fenofibrate Nanocrystallized [Tricor] 145 mg PO DAILY 04/03/15 [History] Ferrous Sulfate [Feosol] 325 mg PO Q48H 04/03/15 [History] Propylene Glycol/Peg 400/Pf [Systane 0.3-0.4% Eye Drops] 1 drop BOTH EYES DAILY PRN 04/03/15 [History] Temazepam [Restoril] 15 mg PO HS PRN 04/03/15 [History] prednisoLONE ACETATE 1% OPHTH [Pred Forte 1%] 1 drops RIGHT EYE DAILY 04/03/15 [History] sitaGLIPtin [Januvia] 50 mg PO DAILY 04/03/15 [History] Docusate [Colace] 100 mg PO DAILY PRN 11/01/16 [History] Magnesium Chelated Zinc 1 tab PO DAILY 11/01/16 [History] Omeprazole [PriLOSEC] 20 mg PO DAILY PRN 11/01/16 [History] Cyanocobalamin (Vitamin B-12) [Vitamin B-12] 2,500 mcg PO DAILY 05/23/17 [History] Fish Oil 360mg 360 mg PO DAILY 01/29/18 [History] amLODIPine [Norvasc] 5 mg PO DAILY 01/29/18 [History] Isosorbide Mononitrate ER [Imdur] 30 mg PO DAILY #30 tab.er.24h 01/30/18 [Rx] Pantoprazole [Protonix] 40 mg PO AC-BRKFST #30 tablet.dr 01/30/18 [Rx] Atorvastatin [Lipitor] 40 mg PO HS 10/30/18 [History] Acetaminophen Tab [Tylenol] 500 mg PO Q6HR PRN tab 11/07/18 [Rx] Meclizine [Antivert] 12.5 mg PO TID PRN #0 11/07/18 [Rx] Metoprolol Tartrate [Lopressor] 25 mg PO BID #60 tab 11/07/18 [Rx] Follow up Appointment(s)/Referral(s): Tyson Rascon DO [Primary Care Provider] - 3 Days [facility], [NON-STAFF] - 1-2 Days Thaddeus Escoto MD [STAFF PHYSICIAN] - 1 Week Ambulatory/Diagnostic Orders: Complete Blood Count w/diff [LAB.AMB] Time Frame: 3 Days, Location: None Selected Activity/Diet/Wound Care/Special Instructions: Antiarrhythmics/antix as per cardiology.. Confirm Cardiology F/U apt. prior to dc. DIet: COnsist. Carb, cardiac Activity: limited till F/U Discharge Disposition: HOME WITH HOME HEALTH SERVICES
--- NOTE | 2018-11-07 15:52 | PN ---
PROGRESS NOTE The patient is seen for followup for acute kidney injury. The patient's renal function has been improving. He is being considered for discharge. Serum creatinine is down to 1.6 from peak of 2.24 mg/dL. Currently, patient is maintained on IV fluids at about 50 mL an hour. He has been tolerating oral intake fairly well. PHYSICAL EXAMINATION: On examination, blood pressure this morning was 164/86, heart rate 59 per minute. He is afebrile. Examination of the heart S1, S2. Examination of the lungs, bilateral breath sounds are heard. Abdomen is soft, nontender. Examination of lower extremities shows no significant edema. ASSOCIATE PROFESSOR OF BIOLOGY exam grossly intact. LAB: Show sodium 140, potassium 5.3, chloride 106, BUN 32, serum creatinine 1.68. ASSESSMENT: 1. Acute kidney injury, mostly acute tubular necrosis and some degree of obstructive uropathy with urinary retention, currently improving. Followup as outpatient with plans to repeat serologies as anti double stranded DNA was positive. However, the RUPERT was negative. 2. Chronic kidney disease most likely secondary to diabetic kidney disease. The patient needs followup for chronic kidney disease as outpatient. 3. Type 2 diabetes. 4. Complex renal cyst to be followed as outpatient with Urology. 5. Nonsustained ventricular tachycardia, maintained on amiodarone, status post ICD implantation. PLAN: The plans for possible discharge tomorrow. Patient needs to follow up as outpatient. Continue current antihypertensive regimen. MMJANUARY / RAMSESN: [id number] /
[2018-11-07 16:55] VITALS: BP 152/72; PULSE 70; RESP 20; TEMP 98.2
--- NOTE | 2018-11-07 18:36 | P.PN ---
Subjective Progress Note Date: 11/07/18 (Late entry note) Principal diagnosis: Monomorphic ventricular tachycardia, left-sided lung atelectasis,, acute congestive heart failure, renal failure acute on chronic, hyperkalemia, coronary artery disease, hypertension hypertensive cardiovascular disease, diabetes mellitus, mood disorder depression, sleep disorder breathing and sleep apnea 11/07/2018, patient is status post AICD postop day #1 renal function continued to improve, patient is on amiodarone and Mexitil, no more ventricular tachycardia has noted, chest x-ray reviewed basal atelectasis continued to improve patient is downgraded to selective care 11/06/2018, patient seen and evaluated examined during the rounds clinically doing well denies any cough or sputum production denies any shortness of breath patient is on room air saturating 95-96% x-ray reviewed labs reviewed, patient is scheduled for AICD placement at 1:00 11/05/2018, patient seen and evaluated examined during the rounds he has slight cough but no shortness of breath however shortness of breath is present during exertion he is considered not interfere candidate for cardiac cath and angiogram at this time due to renal functions, he is being evaluated for AICD placement, tentatively scheduled for tomorrow, he remains afebrile white cell count is normal denies any chest pain cough or shortness of breath, x-ray changes that was seen previously. Atelectasis changes and some fluid overload have improved previous x-ray, from pulmonary standpoint okay to precede AICD placement 11/04/2018, patient seen and evaluated examined during the rounds, he is the comfortable remains in sinus pericardia, denies any shortness of breath some exertional dyspnea is present also noted to have some bigeminy on exertion but at rest he remains in sinus rhythm no arrhythmia was noted overnight his breathing is improved, chest x-ray from today revealed left lower lobe atelectasis with trace effusion overall continued to improve, renal functions remains stable potassium is 5 BUN/creatinine is 42 and 1.71 11/03/2018, patient seen and evaluated examined during the rounds last night patient is still episodes of monomorphic ventricular tachycardia hemodynamic remained stable patient is mostly bradycardic labs reviewed x-ray from today reviewed as well the infiltrate seen at the left base are clearing up likely CHF-like changes atelectasis rather than pneumonia, and labs are reviewed hemoglobin remained stable renal functions showed BUN/creatinine 48 and 1.79, which is improved from yesterday labs reviewed medications reviewed him a critical care time spent 35 minutes This is an 83-year-old gentleman with history of CABG, CABG, diabetes mellitus, hypertension presented to the ER with complaints of generalized weakness, fatigue, mild exertional shortness of breath ,nausea, mid epigastric abdominal discomfort with sour taste in mouth for over a week. Denies fever or chills. Denies vomiting, diarrhea.EKG reporting normal sinus rhythm with frequent PVCs/bigeminy. Troponins negative 3, BNP 1180. Echo of 2018 reporting EF 45- 50%. BUN 51 Creatinine 2.18, potassium 5.5. UA negative.Received GI cocktail, aspirin, IV fluids calcium gluconate. Chest x-ray reporting left perihilar and left basilar opacity possible early pneumonia, atelectasis-patient reports occasional cough, nonproductive. Head CT reported no acute intracranial hemorrhage, no midline shift, old lacunar injury of the right external capsule, large left maxillary mucosal cyst of the ethimoid/right maxillary sinuses. Afebrile, normal WBCs. Received Rocephin, Zithromax, patient was admitted on medical floor, where he was found to have runs of ventricular tachycardia with the persistent ventricular tachycardia monomorphic require admission into the ICU patient was started on amiodarone drip thoughts were compared to the contemplated about cardioversion reverted back with amiodarone drip currently he is mildly short of breath denies any cough or sputum production denies any chest pain, his echocardiogram revealed ejection fraction of 55-60% Objective - Vital Signs Vital signs: Vital Signs Temp 98.2 F 11/07/18 16:00 Pulse 70 11/07/18 16:00 Resp 20 11/07/18 16:00 BP 152/72 11/07/18 16:00 Pulse Ox 97 11/07/18 15:00 Intake & Output 11/06/18 11/07/18 11/07/18 18:59 06:59 18:59 Intake Total 1200 800 Output Total 1452 1000 Balance 1200 -652 -1000 Weight 104.9 kg Intake: IV 700 650 Sodium Chloride 0.9% 1, 400 650 000 ml @ 50 mls/hr IV . Q20H [facility] Rx#:[id number] Oral 500 150 Output: Urine 1452 1000 Other: Voiding Method Bedside Commode # Voids 2 3 - Exam - Constitutional General appearance: disheveled, morbidly obese, no acute distress - EENT Eyes: anicteric sclerae, EOMI, PERRLA, normal appearance Ears: bilateral: normal - Neck Neck: normal ROM Carotids: bilateral: upstroke normal - Respiratory Respiratory: bilateral: CTA, diminished, negative: dullness, rales, rhonchi, wheezing - Cardiovascular Rhythm: regular Heart sounds: normal: S1, S2 - Gastrointestinal General gastrointestinal: decreased bowel sounds, distended, normal bowel sounds, soft - Neurologic Neurologic: CNII-XII intact - Musculoskeletal Musculoskeletal: gait normal, generalized weakness, strength equal bilaterally - Psychiatric Psychiatric: A&O x's 3, appropriate affect, intact judgment & insight - Labs CBC & Chem 7: 11/07/18 05:32 11/07/18 05:32 Labs: Abnormal Lab Results - Last 24 Hours (Table) 11/06/18 11/07/18 11/07/18 Range/Units 20:35 05:32 05:32 RBC 3.99 L (4.30-5.90) m/uL Hgb 11.5 L (13.0-17.5) gm/dL Hct 36.5 L (39.0-53.0) % RDW 15.6 H (11.5-15.5) % Lymphocytes # 0.6 L (1.0-4.8) k/uL Potassium 5.3 H (3.5-5.1) mmol/L BUN 32 H (9-20) mg/dL Creatinine 1.68 H (0.66-1.25) mg/dL Glucose 110 H (74-99) mg/dL POC Glucose (mg/dL) 181 H (75-99) mg/dL 11/07/18 11/07/18 Range/Units 06:50 11:53 RBC (4.30-5.90) m/uL Hgb (13.0-17.5) gm/dL Hct (39.0-53.0) % RDW (11.5-15.5) % Lymphocytes # (1.0-4.8) k/uL Potassium (3.5-5.1) mmol/L BUN (9-20) mg/dL Creatinine (0.66-1.25) mg/dL Glucose (74-99) mg/dL POC Glucose (mg/dL) 138 H 101 H (75-99) mg/dL Assessment and Plan Assessment: Monomorphic ventricular tachycardia, recurrent nature now her rate has stabilized less frequent now now in sinus rhythm in fact more of a sinus bradycardia patient is status post AICD placement due to high risk of recurrent ventricular tachycardia and sudden cardiac status post AICD postop day #1 Left-sided atelectasis versus changes related to congestive heart failure and fluid overload, less likely due to pneumonia will E patient off of antibiotics and observe clinical course closely white cell count stable Left pleural effusion, small in size Acute on chronic renal failure, renal functions are improving Mild hyperkalemia normalized now Coronary artery disease Diabetes mellitus Hypertension hypertensive cardiovascular disease Mood disorder and depression Nonspecific splenic lesion Plan: Tolerated AICD insertion well postprocedure x-ray reviewed stable I feel that the infiltrate that were noted before are more of atelectasis and fluid overload so we'll continue to hold antibiotics white cell count is normal Observe patient closely on amiodarone drip and subsequently will be changed by mouth later on today Monitor renal functions closely Deep breathing sense incentive spirometry Further recommendations pending plan of care as per clinical response of the patient Monitor off of Lexapro Checked EKG for QT prolongation, apparently QT interval appears to be normal on EKG its frequent PVCs noted Time with Patient: Greater than 30
--- NOTE | 2018-11-09 08:44 | CDI ---
Documentation Clarification Form Date: 11/09/2018 8:19:42 AM From: MÓNICA Benoit; Raquel Gann Animal Trainer Phone: If you have a question about this query, please contact Raquel Gann Animal Trainer, at [phone] Admit Date: 10/30/2018 8:48:00 PM Patient Name: Walker Hernandez Visit Number: [id number] Discharge Date: 11/07/2018 5:08:00 PM ATTENTION: The Clinical Documentation Specialists (CDI) and [facility] Coding Staff appreciate your assistance in clarifying documentation. Please respond to the clarification below the line at the bottom and electronically sign. The CDI & [facility] Coding staff will review the response and follow-up if needed. Please note: Queries are made part of the Legal Health Record. If you have any questions, please contact the author of this message via ITS. Dr. Thaddeus Escoto Acute congestive heart failure is documented in your progress notes starting November 03. History/Risk Factors: Ventricular tachycardia, atelectasis, ATN, CKD, CAD, DM. Clinical Indicators: Occasional cough nonproductive, shortness of breath, BNP: 1180 Echocardiogram Results: EF 55-60% Chest X Ray: Filtrate seen at left base, likely CHF changes rather than pneumonia. Chest x-ray dated -5 states suspect resolving CHF exacerbation given diminished cardiac silhouette size and resolving central vascular congestion. Treatment: 40 mg IV Lasix. In your professional opinion, can you please clarify the acuity & type of CHF if known? Acute on Chronic Diastolic Heart Failure MTDD
== END 2018-11-07 17:08 | DRG 981 ==
LOC: EC 19:14 → 3SCARD 20:48 → 2SICU 11-02 00:20
PROVIDERS: ADMIT Family Medicine; ATTEND Family Medicine
PROC: 05HB33Z Insertion of Infusion Device into Right Basilic Vein, Percutaneous Approach (ICD-10-PCS; 2018-11-04)
PROC: 02H63KZ Insertion of Defibrillator Lead into Right Atrium, Percutaneous Approach (ICD-10-PCS; principal; 2018-11-06 13:00)
PROC: 0JH608Z Insertion of Defibrillator Generator into Chest Subcutaneous Tissue and Fascia, Open Approach (ICD-10-PCS; principal; 2018-11-06 13:00)
PROC: 02HL3KZ Insertion of Defibrillator Lead into Left Ventricle, Percutaneous Approach (ICD-10-PCS; principal; 2018-11-06 13:00)
DX: N17.0 Acute kidney failure with tubular necrosis (principal); I50.33 Acute on chronic diastolic (congestive) heart failure; I47.2 Ventricular tachycardia; I13.0 Hypertensive heart and chronic kidney disease with heart failure and stage 1 through stage 4 chronic kidney disease, or unspecified chronic kidney disease; J98.11 Atelectasis; D73.89 Other diseases of spleen; E11.22 Type 2 diabetes mellitus with diabetic chronic kidney disease; E78.5 Hyperlipidemia, unspecified; E86.0 Dehydration; E87.5 Hyperkalemia; F32.9 Major depressive disorder, single episode, unspecified; G47.30 Sleep apnea, unspecified; H91.90 Unspecified hearing loss, unspecified ear; I25.10 Atherosclerotic heart disease of native coronary artery without angina pectoris; I35.0 Nonrheumatic aortic (valve) stenosis; I49.3 Ventricular premature depolarization; K21.9 Gastro-esophageal reflux disease without esophagitis; K76.0 Fatty (change of) liver, not elsewhere classified; K80.20 Calculus of gallbladder without cholecystitis without obstruction; M19.042 Primary osteoarthritis, left hand; N13.9 Obstructive and reflux uropathy, unspecified; N18.3 Chronic kidney disease, stage 3 (moderate); N28.1 Cyst of kidney, acquired; Z79.82 Long term (current) use of aspirin; Z79.84 Long term (current) use of oral hypoglycemic drugs; Z79.899 Other long term (current) drug therapy; Z85.038 Personal history of other malignant neoplasm of large intestine; Z87.01 Personal history of pneumonia (recurrent); Z95.1 Presence of aortocoronary bypass graft; Z88.8 Allergy status to other drugs, medicaments and biological substances; E66.01 Morbid (severe) obesity due to excess calories; Z68.32 Body mass index [BMI] 32.0-32.9, adult
CPT/HCPCS: 33249; 36410; 36415; 70450; 71045; 71046; 74150; 76770; 76937; 80048; 80053; 80074; 81001; 82570; 83036; 83690; 83735; 83880; 83935; 84100; 84132; 84133; 84156; 84300; 84484; 85025; 85027; 86038; 86160; 86162; 86225; 86255; 86334; 86335; 93005; 93306; 93641; 96365; 96375; 99285

== ENCOUNTER 2019-01-12 12:23 | Emergency (ER) | payer MEDICARE, BC ==
[2019-01-12 12:32] VITALS: RESP 18; TEMP 98.3
[2019-01-12] MEDS ORDERED: SODIUM CHLORIDE 0.9% 500 ML IV STA (12:56)
--- NOTE | 2019-01-12 13:01 | ED ---
General Adult HPI - General Chief complaint: Weakness Stated complaint: weakness, doesn't feel right Time Seen by Provider: 01/12/19 12:38 Source: patient Mode of arrival: wheelchair Limitations: physical limitation - History of Present Illness Initial comments: Dictation was produced using [employer] dictation software. please excuse any grammatical, word or spelling errors. Chief Complaint: Patient is a 83-year-old male presents today with generalized weakness, mild nausea, and insomnia. History of Present Illness: 83-year-old male with multiple comorbidities presents with generalized weakness, insomnia and mild nausea. Patient was recently seen and admitted in our emergency department back in October. Patient at that time was found have ventricular tachycardia. Patient had an AICD placed. Patient has no specific complaints. Basically complains of feeling generally unwell. Denies any focal neurologic weakness. No neurologic symptoms. No cough, shortness of breath. Patient has been having some mild sharp chest pain that's exacerbated with movement. He attributes this to his arthritis. He was concerned about his well-being came to the emergency department for blood test. He has been eating well and drinking well. No diarrhea. He has had some episodes of soft stool. He reports concerned about his kidney function because he has history of acute kidney injury. The ROS documented in this emergency department record has been reviewed and confirmed by me. Those systems with pertinent positive or negative responses have been documented in the HPI. All other systems are other negative and/or n oncontributory. PHYSICAL EXAM: General Impression: Alert and oriented x3, not in acute distress HEENT: Normocephalic atraumatic, extra-ocular movements intact, pupils equal and reactive to light bilaterally, mucous membranes moist. Cardiovascular: Heart regular rate and rhythm, S1&S2 audible, no murmurs, rubs or gallops Chest: Lungs clear to auscultation bilaterally, no rhonchi, no wheeze, no rales Abdomen: Bowel sounds present, abdomen soft, non-tender, non-distended, no organomegaly Musculoskeletal: Pulses present and equal in all extremities, no peripheral edema Motor: no focal deficits noted Neurological: CN II-XII grossly intact, no focal motor or sensory deficits noted Skin: Intact with no visualized rashes Psych: Normal affect and mood ED course: 83-year-old male presents with chief complaint of generalized weakness. Patient has multiple vague complaints. He doesn't have any localizing symptoms. Physical examination is unremarkable. Vital signs upon arrival are within acceptable limits. Medications were reviewed. Labs evaluation obtained. CBC, coag panel, metabolic panel is obtained. Pertinent positive close been is 1.5. Renal markers appear to be around patient's baseline. Urinalysis is negative. Patient's symptoms are likely secondary to hypomagnesemia. Patient given by mouth magnesium. He is given prescription for magnesium as well. Patient told that his Lasix is likely the cause of his hypomagnesemia. Told to increase his magnesium intake. Patient given prescription for magnesium for the next 2-3 days. He is told to follow-up with his primary care physician for repeat check. EKG interpretation: Ventricular rate 64, H or a paced rhythm, WA interval 162, care is 90, QTC 414. No WA prolongation, no QTC prolongation, no ST or T-wave changes noted. Overall, this EKG is unremarkable - Related Data Home Medications Medication Instructions Recorded Confirmed Ascorbic Acid [Vitamin C] 1,000 mg PO DAILY 04/03/15 01/12/19 Aspirin EC [Ecotrin Low Dose] 81 mg PO DAILY 04/03/15 01/12/19 Fenofibrate Nanocrystallized 145 mg PO DAILY 04/03/15 01/12/19 [Tricor] amLODIPine [Norvasc] 5 mg PO DAILY 01/29/18 01/12/19 Atorvastatin [Lipitor] 40 mg PO HS 10/30/18 01/12/19 Amiodarone HCl [Pacerone] 200 mg PO DAILY 01/12/19 01/12/19 Cyanocobalamin (Vitamin B-12) 1,000 mcg PO DAILY 01/12/19 01/12/19 [Vitamin B-12] Furosemide [Lasix] 40 mg PO DAILY 01/12/19 01/12/19 Linagliptin [Tradjenta] 5 mg PO DAILY 01/12/19 01/12/19 Previous Rx's Medication Instructions Recorded Isosorbide Mononitrate ER [Imdur] 30 mg PO DAILY #30 tab.er.24h 01/30/18 Pantoprazole [Protonix] 40 mg PO RENA #30 tablet. 01/30/18 Metoprolol Tartrate [Lopressor] 25 mg PO BID #60 tab 11/07/18 Magnesium Oxide [Mag-Oxide] 200 mg PO DAILY 3 Days #5 tablet 01/12/19 Allergies Allergy/AdvReac Type Severity Reaction Status Date / Time fluticasone [From Flonase] AdvReac FAINTING Verified 01/12/19 13:12 Review of Systems ROS Statement: Those systems with pertinent positive or pertinent negative responses have been documented in the HPI. ROS Other: All systems not noted in ROS Statement are negative. Past Medical History Past Medical History: Coronary Artery Disease (CAD), Cancer, Diabetes Mellitus, Hyperlipidemia, Hypertension Additional Past Medical History / Comment(s): colon ca, cataracts, hard of hearing History of Any Multi-Drug Resistant Organisms: None Reported Past Surgical History: Bowel Resection, Coronary Bypass/CABG, Pacemaker Additional Past Surgical History / Comment(s): colon ca, hernia repair, triple vessel CABG 1995 Past Anesthesia/Blood Transfusion Reactions: No Reported Reaction Past Psychological History: No Psychological Hx Reported Smoking Status: Never smoker Past Alcohol Use History: None Reported Past Drug Use History: None Reported General Exam Limitations: physical limitation Course Vital Signs 01/12/19 01/12/19 01/12/19 12:28 12:45 14:27 Temperature 98.3 F Pulse Rate 77 63 Pulse Rate [ 61 Pulse Oximetery ] Respiratory 18 18 Rate Blood Pressure 150/82 151/81 O2 Sat by Pulse 93 L 94 L Oximetry Medical Decision Making - Lab Data Result diagrams: 01/12/19 13:01 01/12/19 13:01 Lab Results 01/12/19 01/12/19 01/12/19 Range/Units 01:27 13:01 13:01 WBC 7.1 (3.8-10.6) k/uL RBC 4.17 L (4.30-5.90) m/uL Hgb 12.6 L (13.0-17.5) gm/dL Hct 38.3 L (39.0-53.0) % MCV 91.9 (80.0-100.0) fL MCH 30.1 (25.0-35.0) pg MCHC 32.8 (31.0-37.0) g/dL RDW 16.4 H (11.5-15.5) % Plt Count 210 (150-450) k/uL Neutrophils % 72 % Lymphocytes % 12 % Monocytes % 8 % Eosinophils % 5 % Basophils % 1 % Neutrophils # 5.1 (1.3-7.7) k/uL Lymphocytes # 0.8 L (1.0-4.8) k/uL Monocytes # 0.6 (0-1.0) k/uL Eosinophils # 0.4 (0-0.7) k/uL Basophils # 0.1 (0-0.2) k/uL Anisocytosis Slight PT (9.0-12.0) sec INR (<1.2) APTT (22.0-30.0) sec Sodium 140 (137-145) mmol/L Potassium 4.3 (3.5-5.1) mmol/L Chloride 106 (98-107) mmol/L Carbon Dioxide 27 (22-30) mmol/L Anion Gap 7 mmol/L BUN 34 H (9-20) mg/dL Creatinine 1.52 H (0.66-1.25) mg/dL Est GFR (CKD-EPI)AfAm 49 (>60 ml/min/1.73 sqM) Est GFR (CKD-EPI)NonAf 42 (>60 ml/min/1.73 sqM) Glucose 117 H (74-99) mg/dL Plasma Lactic Acid Jese (0.7-2.0) mmol/L Calcium 9.5 (8.4-10.2) mg/dL Magnesium 1.5 L (1.6-2.3) mg/dL Total Bilirubin 0.4 (0.2-1.3) mg/dL AST 26 (17-59) U/L ALT 27 (21-72) U/L Alkaline Phosphatase 98 (38-126) U/L Creatine Kinase 84 (55-170) U/L Troponin I (0.000-0.034) ng/mL Total Protein 7.1 (6.3-8.2) g/dL Albumin 4.1 (3.5-5.0) g/dL TSH 3.850 (0.465-4.680) mIU/L Urine Color Light Yellow Urine Appearance Clear (Clear) Urine pH 5.5 (5.0-8.0) Ur Specific [place] 1.010 (1.001-1.035) Urine Protein 1+ H (Negative) Urine Glucose (UA) Negative (Negative) Urine Ketones Negative (Negative) Urine Blood Negative (Negative) Urine Nitrite Negative (Negative) Urine Bilirubin Negative (Negative) Urine Urobilinogen <2.0 (<2.0) mg/dL Ur Leukocyte Esterase Negative (Negative) Urine RBC <1 (0-5) /hpf Urine WBC 1 (0-5) /hpf Ur Squamous Epith Cells <1 (0-4) /hpf Urine Mucus Rare H (None) /hpf 01/12/19 01/12/19 01/12/19 Range/Units 13:01 13:01 13:01 WBC (3.8-10.6) k/uL RBC (4.30-5.90) m/uL Hgb (13.0-17.5) gm/dL Hct (39.0-53.0) % MCV (80.0-100.0) fL MCH (25.0-35.0) pg MCHC (31.0-37.0) g/dL RDW (11.5-15.5) % Plt Count (150-450) k/uL Neutrophils % % Lymphocytes % % Monocytes % % Eosinophils % % Basophils % % Neutrophils # (1.3-7.7) k/uL Lymphocytes # (1.0-4.8) k/uL Monocytes # (0-1.0) k/uL Eosinophils # (0-0.7) k/uL Basophils # (0-0.2) k/uL Anisocytosis PT 10.0 (9.0-12.0) sec INR 0.9 (<1.2) APTT 23.9 (22.0-30.0) sec Sodium (137-145) mmol/L Potassium (3.5-5.1) mmol/L Chloride (98-107) mmol/L Carbon Dioxide (22-30) mmol/L Anion Gap mmol/L BUN (9-20) mg/dL Creatinine (0.66-1.25) mg/dL Est GFR (CKD-EPI)AfAm (>60 ml/min/1.73 sqM) Est GFR (CKD-EPI)NonAf (>60 ml/min/1.73 sqM) Glucose (74-99) mg/dL Plasma Lactic Acid Jese 1.4 (0.7-2.0) mmol/L Calcium (8.4-10.2) mg/dL Magnesium (1.6-2.3) mg/dL Total Bilirubin (0.2-1.3) mg/dL AST (17-59) U/L ALT (21-72) U/L Alkaline Phosphatase (38-126) U/L Creatine Kinase (55-170) U/L Troponin I <0.012 (0.000-0.034) ng/mL Total Protein (6.3-8.2) g/dL Albumin (3.5-5.0) g/dL TSH (0.465-4.680) mIU/L Urine Color Urine Appearance (Clear) Urine pH (5.0-8.0) Ur Specific [place] (1.001-1.035) Urine Protein (Negative) Urine Glucose (UA) (Negative) Urine Ketones (Negative) Urine Blood (Negative) Urine Nitrite (Negative) Urine Bilirubin (Negative) Urine Urobilinogen (<2.0) mg/dL Ur Leukocyte Esterase (Negative) Urine RBC (0-5) /hpf Urine WBC (0-5) /hpf Ur Squamous Epith Cells (0-4) /hpf Urine Mucus (None) /hpf Disposition Clinical Impression: Weakness, Hypomagnesemia Disposition: HOME SELF-CARE Condition: Good Prescriptions: Magnesium Oxide [Mag-Oxide] 200 mg PO DAILY 3 Days #5 tablet Is patient prescribed a controlled substance at d/c from ED?: No Referrals: Tyson Rascon DO [Primary Care Provider] - 1-2 days Time of Disposition: 14:45
[2019-01-12 13:19] LABS: Anisocytosis Slight; Basophils # (A) 0.1 k/uL (0-0.2); Basophils % (A) 1 %; Eosinophils # (A) 0.4 k/uL (0-0.7); Eosinophils % (A) 5 %; HCT 38.3 % (39.0-53.0); HGB 12.6 gm/dL (13.0-17.5); Lymphocytes # (A) 0.8 k/uL (1.0-4.8); Lymphocytes % (A) 12 %; MCH 30.1 pg (25.0-35.0); MCHC 32.8 g/dL (31.0-37.0); MCV 91.9 fL (80.0-100.0); Mean Platelet Volume 7.2; Monocytes # (A) 0.6 k/uL (0-1.0); Monocytes % (A) 8 %; Neutrophils # (A) 5.1 k/uL (1.3-7.7); Neutrophils % (A) 72 %; Platelet Count 210 k/uL (150-450); RBC 4.17 m/uL (4.30-5.90); RDW 16.4 % (11.5-15.5); WBC 7.1 k/uL (3.8-10.6)
[2019-01-12 13:24] LABS: INR 0.9 (<1.2); Partial Thromboplastin Time 23.9 sec (22.0-30.0)
[2019-01-12 13:26] LABS: Albumin 4.1 g/dL (3.5-5.0); Calcium 9.5 mg/dL (8.4-10.2); Magnesium 1.5 mg/dL (1.6-2.3); Potassium 4.3 mmol/L (3.5-5.1); Total Bilirubin 0.4 mg/dL (0.2-1.3); Total Protein 7.1 g/dL (6.3-8.2)
--- NOTE | 2019-01-12 13:45 | XR ---
EXAMINATION TYPE: XR chest 2V DATE OF EXAM: 01/12/2019 COMPARISON: 11/07/2018 HISTORY: Chest pain TECHNIQUE: Frontal and lateral views of the chest are obtained. FINDINGS: There is a multilead left-sided cardiac device and enlarged cardiac mediastinal silhouette . Left basilar airspace disease has improved with minimal peribronchial cuffing disease along the lef t mainstem bronchus and left lower lobe bronchus as well as linear atelectasis at the costophrenic an gle remaining. Osseous structures are generally demineralized. Moderate degenerative change of the sp ine. Pulmonary hyperinflation and flattening of the diaphragms representing underlying COPD. IMPRESSION: COPD with persistent peribronchial cuffing on the left that may relate to reactive or in fectious airway disease.
[2019-01-12 13:46] LABS: Appearance,Urine Clear (Clear); Bilirubin,Urine Negative (Negative); Blood,Urine Negative (Negative); Color,Urine Light Yellow; Glucose,Urine (UA) Negative (Negative); Ketones,Urine Negative (Negative); Leukocyte Esterase,Urine Negative (Negative); Mucus,Urine Rare /hpf; Nitrite,Urine Negative (Negative); PH, Urine 5.5 (5.0-8.0); Protein,Urine 1+ (Negative); RBC,Urine <1 /hpf (0-5); Squamous Epithelial Cell,Urine <1 /hpf (0-4); Urobilinogen,Urine <2.0 mg/dL (<2.0)
[2019-01-12] MEDS ORDERED: MAGNESIUM OXIDE 400 MG TAB PO STA (13:54)
[2019-01-12 14:28] VITALS: BP 151/81; PULSE 63
== END 2019-01-12 15:03 | disposition home or self-care (01) ==
LOC: EC 12:23
DX: E83.42 Hypomagnesemia (principal); R07.9 Chest pain, unspecified; I25.10 Atherosclerotic heart disease of native coronary artery without angina pectoris; E11.9 Type 2 diabetes mellitus without complications; E78.5 Hyperlipidemia, unspecified; I10 Essential (primary) hypertension; Z85.038 Personal history of other malignant neoplasm of large intestine; Z95.1 Presence of aortocoronary bypass graft; Z95.0 Presence of cardiac pacemaker; Z79.82 Long term (current) use of aspirin; Z79.84 Long term (current) use of oral hypoglycemic drugs; Z79.899 Other long term (current) drug therapy; Z88.8 Allergy status to other drugs, medicaments and biological substances
CPT/HCPCS: 36415; 71046; 80053; 81001; 82550; 83605; 83735; 84443; 84484; 85025; 85610; 85730; 93005; 96360; 99285

== ENCOUNTER 2019-03-22 12:19 | Emergency (ER) | payer MEDICARE, BC ==
[2019-03-22 12:43] VITALS: BP 146/84; PULSE 74; RESP 18; TEMP 98.4
--- NOTE | 2019-03-22 13:34 | ED ---
General Adult HPI - General Chief complaint: Nausea/Vomiting/Diarrhea Stated complaint: Vomiting Time Seen by Provider: 03/22/19 13:22 Source: patient Mode of arrival: ambulatory Limitations: no limitations - History of Present Illness Initial comments: This 83-year-old white male presents with a complaint of some nausea and a bad taste in his mouth which she's had for over one month. He denies any abdominal pain fevers chest pain shortness breath. He states that he thinks it is due to his medications. He had a defibrillator placed approximately one month ago and was put on new medications. His medication list looks fairly standard except for that he is on omeprazole as well as pantoprazole. He denies any other complaints or modifying factors. He states that he was unable to get in to see his primary care physician. - Related Data Home Medications Medication Instructions Recorded Confirmed Ascorbic Acid [Vitamin C] 1,000 mg PO DAILY 04/03/15 01/12/19 Aspirin EC [Ecotrin Low Dose] 81 mg PO DAILY 04/03/15 01/12/19 Fenofibrate Nanocrystallized 145 mg PO DAILY 04/03/15 01/12/19 [Tricor] amLODIPine [Norvasc] 5 mg PO DAILY 01/29/18 01/12/19 Atorvastatin [Lipitor] 40 mg PO HS 10/30/18 01/12/19 Amiodarone HCl [Pacerone] 200 mg PO DAILY 01/12/19 01/12/19 Cyanocobalamin (Vitamin B-12) 1,000 mcg PO DAILY 01/12/19 01/12/19 [Vitamin B-12] Furosemide [Lasix] 40 mg PO DAILY 01/12/19 01/12/19 Linagliptin [Tradjenta] 5 mg PO DAILY 01/12/19 01/12/19 Previous Rx's Medication Instructions Recorded Isosorbide Mononitrate ER [Imdur] 30 mg PO DAILY #30 tab.er.24h 01/30/18 Pantoprazole [Protonix] 40 mg PO AC-BRKFST #30 tablet.dr 01/30/18 Metoprolol Tartrate [Lopressor] 25 mg PO BID #60 tab 11/07/18 Magnesium Oxide [Mag-Oxide] 200 mg PO DAILY 3 Days #5 tablet 01/12/19 Ondansetron Odt [Zofran ODT] 4 mg PO Q8HR PRN #20 tab 03/22/19 Allergies Allergy/AdvReac Type Severity Reaction Status Date / Time fluticasone [From Flonase] AdvReac FAINTING Verified 03/22/19 12:39 Review of Systems ROS Statement: Those systems with pertinent positive or pertinent negative responses have been documented in the HPI. ROS Other: All systems not noted in ROS Statement are negative. Past Medical History Past Medical History: Coronary Artery Disease (CAD), Cancer, Diabetes Mellitus, Hyperlipidemia, Hypertension Additional Past Medical History / Comment(s): colon ca, cataracts, hard of hearing History of Any Multi-Drug Resistant Organisms: None Reported Past Surgical History: Bowel Resection, Coronary Bypass/CABG, Pacemaker Additional Past Surgical History / Comment(s): colon ca, hernia repair, triple vessel CABG 1995 Past Anesthesia/Blood Transfusion Reactions: No Reported Reaction Past Psychological History: No Psychological Hx Reported Smoking Status: Never smoker Past Alcohol Use History: None Reported Past Drug Use History: None Reported General Exam - General Exam Comments Initial Comments: GENERAL: The patient is well nourished and well hydrated. VITAL SIGNS: Heart rate, blood pressure, respiratory rate reviewed as recorded in nurse's notes. EYES: Pupils are round and reactive. Extraocular movements are intact. No conjunctival / lid redness or swelling. ENT: No external evidence of injury, swelling, or ecchymosis. Airway is patent. Throat is clear. NECK: Nontender. No swelling or evidence of injury. No subcutaneous emphysema. Trachea is midline. No thyroid mass. HEART: Regular rate and rhythm. Good peripheral pulses. LUNGS/CHEST: Breath sounds clear and equal bilaterally. No rales, rhonchi, or wheezes. No ecchymosis, subcutaneous emphysema, or tenderness. ABDOMEN: Abdomen soft without tenderness. No palpable masses or organomegaly. No peritoneal signs. No abdominal wall swelling or ecchymosis. EXTREMITIES: No extremity tenderness. Normal muscle tone and function. No thorac olumbar tenderness. NEUROLOGIC: Sensation is grossly intact. Cranial nerve exam reveals face is symmetrical, tongue is midline, speech is clear. SKIN: No abrasions or ecchymosis is noted. No induration or masses noted. PSYCHIATRIC: Alert and oriented. Appropriate behavior and judgment. Limitations: no limitations Course Vital Signs 03/22/19 12:39 Temperature 98.4 F Pulse Rate 74 Respiratory 18 Rate Blood Pressure 146/84 O2 Sat by Pulse 93 L Oximetry Medical Decision Making - Medical Decision Making The patient was seen and examined. It appears that he is on pantoprazole and omeprazole. He is instructed to stop the omeprazole. Exact cause of his symptoms is not definitively determined. It is difficult to say if the other medications are causing his nausea. He is instructed to let his other providers know of his symptomatology to determine if they think that the other medications could be causing this. He will be placed on some Zofran in the interim. No acute significant medical problems are identified. He leaves in no distress. Disposition Clinical Impression: Nausea Disposition: HOME SELF-CARE Condition: Good Instructions (If sedation given, give patient instructions): Acute Nausea and Vomiting (ED) Prescriptions: Ondansetron Odt [Zofran ODT] 4 mg PO Q8HR PRN #20 tab PRN Reason: Nausea And Vomiting Is patient prescribed a controlled substance at d/c from ED?: No Referrals: Tyson Rascon DO [Primary Care Provider] - 1-2 days Time of Disposition: 13:34
== END 2019-03-22 13:46 | disposition home or self-care (01) ==
LOC: EC 12:19
DX: R11.0 Nausea (principal); I25.10 Atherosclerotic heart disease of native coronary artery without angina pectoris; E11.9 Type 2 diabetes mellitus without complications; E78.5 Hyperlipidemia, unspecified; I10 Essential (primary) hypertension; H91.90 Unspecified hearing loss, unspecified ear; Z88.8 Allergy status to other drugs, medicaments and biological substances; Z79.82 Long term (current) use of aspirin; Z79.899 Other long term (current) drug therapy; Z79.84 Long term (current) use of oral hypoglycemic drugs; Z85.038 Personal history of other malignant neoplasm of large intestine; Z95.0 Presence of cardiac pacemaker; Z95.1 Presence of aortocoronary bypass graft; Z90.49 Acquired absence of other specified parts of digestive tract
CPT/HCPCS: 99283

== ENCOUNTER 2019-04-11 08:03 | Inpatient (IN) | payer MEDICARE, BC ==
[~2019-04-11 08:03] MED LIST: DEXAMETHASONE SOD PHOSPHATE 10 MG/ML 1 ML VIAL IV ONE; HEPARIN SODIUM,PORCINE 5,000 UNIT/ML 1 ML VIAL SQ ONE; MIDAZOLAM 2 MG/2 ML VIAL IV PRN; ONDANSETRON 4 MG/2 ML VIAL IVP ONE
[2019-04-11 09:05] LABS: Glucose,Whole Blood 136 mg/dL (75-99)
[2019-04-11] MEDS: LACTATED RINGERS 1,000 ML IV SCH (09:18)
--- NOTE | 2019-04-11 10:46 | P.GSHP ---
History of Present Illness H&P Date: 04/11/19 Chief Complaint: Right upper quadrant pain This a 3-year-old male with complaints of right upper quadrant pain. Patient has previous history of gallstones. She he presents today for laparoscopic ostectomy. Patient's had multiple laparotomies. A lengthy discussion with the patient's regarding possible open cholecystectomy due to adhesions. 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 lives in an assisted living facility. pt is independent and still drives. Smoking Status: Never smoker Past Alcohol Use History: Rare Past Drug Use History: None Reported - Past Family History Mother Family Medical History: No Reported History Medications and Allergies Home Medications Medication Instructions Recorded Confirmed Type Ascorbic Acid [Vitamin C] 1,000 mg PO DAILY 04/03/15 04/10/19 History Aspirin EC [Ecotrin Low Dose] 81 mg PO DAILY 04/03/15 04/10/19 History Fenofibrate Nanocrystallized 145 mg PO DAILY 04/03/15 04/10/19 History [Tricor] amLODIPine [Norvasc] 5 mg PO DAILY 01/29/18 04/10/19 History Isosorbide Mononitrate ER [Imdur] 30 mg PO DAILY #30 tab.er.24h 01/30/18 04/10/19 Rx Pantoprazole [Protonix] 40 mg PO MENDEL-DAVID #30 tablet.dr 01/30/18 04/10/19 Rx Atorvastatin [Lipitor] 40 mg PO HS 10/30/18 04/10/19 History Amiodarone HCl [Pacerone] 200 mg PO DAILY 01/12/19 04/10/19 History Cyanocobalamin (Vitamin B-12) 1,000 mcg PO DAILY 01/12/19 04/10/19 History [Vitamin B-12] Furosemide [Lasix] 40 mg PO DAILY 01/12/19 04/10/19 History Linagliptin [Tradjenta] 5 mg PO DAILY 01/12/19 04/10/19 History Magnesium Oxide [Mag-Oxide] 200 mg PO DAILY 3 Days #5 tablet 01/12/19 04/10/19 Rx Metoprolol Tartrate [Lopressor] 25 mg PO DAILY 04/10/19 04/10/19 History Allergies Allergy/AdvReac Type Severity Reaction Status Date / Time tamsulosin [From Flomax] Allergy fainting Verified 04/11/19 08:40 Surgical - Exam Vital Signs Temp Pulse Resp BP Pulse Ox 97.5 F L 63 16 162/73 94 L 04/11/19 08:55 04/11/19 08:55 04/11/19 08:55 04/11/19 08:55 04/11/19 08:55 - General well developed, well nourished, no distress - Eyes PERRL - ENT normal pinna - Neck no masses - Respiratory normal expansion - Cardiovascular Rhythm: regular - Abdomen Abdomen: soft, non tender Hernia: none Results - Labs Abnormal Lab Results - Last 24 Hours (Table) 04/11/19 Range/Units 09:00 POC Glucose (mg/dL) 136 H (75-99) mg/dL Assessment and Plan Assessment: Right upper quadrant pain Cholelithiasis We'll perform laparoscopic cholecystectomy.
[2019-04-11] MEDS ORDERED: GLYCOPYRROLATE 0.2 MG/ML 2 ML VIAL ONE (10:54)
[2019-04-11] MEDS ORDERED: SUCCINYLCHOLINE CHLORIDE 100 MG/5 ML SYR IV ONE (10:54)
[2019-04-11] MEDS ORDERED: NEOSTIGMINE 1 MG/ML 10 ML VIAL ONE (10:54)
[2019-04-11] MEDS ORDERED: fentaNYL (PF) 50 MCG/ML 2 ML AMP ONE (10:54)
[2019-04-11] MEDS ORDERED: PROPOFOL 10 MG/ML 20 ML VIAL IV ONE (10:54)
[2019-04-11] MEDS ORDERED: ROCURONIUM BROMIDE 10 MG/ML 10 ML VIAL IV ONE (10:54)
[2019-04-11] MEDS ORDERED: LIDOCAINE 1% INJ 10MG/ML (20 ML MDV) ONE (10:54)
[2019-04-11] MEDS ORDERED: KETOROLAC 30 MG/ML 1 ML VIAL ONE (10:54)
[2019-04-11] MEDS ORDERED: BUPIVACAINE (PF) 0.5% 30 ML VIAL SQ ONE ×2 (11:38)
[2019-04-11] MEDS ORDERED: NALOXONE 0.4 MG/ML 1 ML VIAL IV PRN ×2 (12:10→13:14)
[2019-04-11] MEDS ORDERED: LACTATED RINGERS 1,000 ML IV ONE ×2 (12:10→12:59)
[2019-04-11] MEDS: HYDROmorphone 0.5 MG/0.5 ML SYRINGE IVP PRN ×3 (12:19→12:33)
[2019-04-11] MEDS ORDERED: HYDROmorphone 1 MG/ML 1 ML SYRINGE IVP PRN (12:49)
[2019-04-11] MEDS ORDERED: hydrALAZINE HCL 20 MG/ML 1 ML VIAL IVP ONE (12:56)
[2019-04-11] MEDS ORDERED: ROPIVACAINE 250 MG, HYDROMORPHONE (PF) 2.5 MG in SODIUM CHLORIDE 0.9% 200 ML EPIDURAL PRN (13:14)
[2019-04-11] MEDS ORDERED: diphenhydrAMINE 50 MG/ML 1 ML VIAL IVP PRN (13:14)
[2019-04-11] MEDS ORDERED: ONDANSETRON 4 MG/2 ML VIAL IVP PRN (13:14)
[2019-04-11 15:45] VITALS: BMI 37.3
[2019-04-11 16:51] LABS: Glucose,Whole Blood 194 mg/dL (75-99)
[2019-04-11 20:21] LABS: Glucose,Whole Blood 202 mg/dL (75-99)
[2019-04-11] MEDS: ATORVASTATIN 40 MG TAB PO SCH (21:30)
[2019-04-11] MEDS: INSULIN ASPART (NovoLOG) 100 UNIT/ML VIAL SQ SCH (21:30)
[2019-04-12 07:17] LABS: Glucose,Whole Blood 143 mg/dL (75-99)
[2019-04-12] MEDS: LACTATED RINGERS 1,000 ML IV SCH (07:25)
[2019-04-12] MEDS: INSULIN ASPART (NovoLOG) 100 UNIT/ML VIAL SQ SCH ×4 (08:09→19:58)
[2019-04-12] MEDS: ASCORBIC ACID 500 MG TAB PO SCH (08:10)
[2019-04-12] MEDS: CYANOCOBALAMIN 500 MCG TAB PO SCH (08:10)
[2019-04-12] MEDS: PANTOPRAZOLE 40 MG TABLET PO SCH (08:10)
[2019-04-12] MEDS: FUROSEMIDE 40 MG TAB PO SCH (08:10)
[2019-04-12] MEDS: amLODIPine 5 MG TAB PO SCH (08:10)
[2019-04-12] MEDS: ASPIRIN 81 MG PO SCH (08:10)
[2019-04-12] MEDS: FENOFIBRATE 160 MG TAB PO SCH (08:10)
[2019-04-12] MEDS: ISOSORBIDE MONONITRATE ER 30 MG TAB.ER.24H PO SCH (08:10)
[2019-04-12] MEDS: ENOXAPARIN 30 MG/0.3 ML SYRINGE SQ SCH (08:10)
[2019-04-12] MEDS: METOPROLOL TARTRATE 25 MG TAB PO SCH (08:10)
[2019-04-12] MEDS: LINAGLIPTIN 5 MG TABLET PO SCH (08:10)
[2019-04-12] MEDS: MAGNESIUM OXIDE 400 MG TAB PO SCH (08:10)
[2019-04-12] MEDS: AMIODARONE 200 MG TAB PO SCH (08:11)
[2019-04-12 09:58] LABS: Basophils % (A) 0 %; Eosinophils # (A) 0.1 k/uL (0-0.7); Eosinophils % (A) 1 %; HCT 35.7 % (39.0-53.0); HGB 11.6 gm/dL (13.0-17.5); Lymphocytes # (A) 0.6 k/uL (1.0-4.8); Lymphocytes % (A) 7 %; MCH 30.9 pg (25.0-35.0); MCHC 32.6 g/dL (31.0-37.0); MCV 94.8 fL (80.0-100.0); Mean Platelet Volume 6.9; Monocytes # (A) 0.7 k/uL (0-1.0); Monocytes % (A) 9 %; Neutrophils # (A) 7.1 k/uL (1.3-7.7); Neutrophils % (A) 81 %; Platelet Count 174 k/uL (150-450); RBC 3.77 m/uL (4.30-5.90); RDW 15.2 % (11.5-15.5); WBC 8.8 k/uL (3.8-10.6)
[2019-04-12 10:15] LABS: Albumin 3.5 g/dL (3.5-5.0); Calcium 8.5 mg/dL (8.4-10.2); Potassium 4.1 mmol/L (3.5-5.1); Total Bilirubin 0.7 mg/dL (0.2-1.3); Total Protein 6.5 g/dL (6.3-8.2)
--- NOTE | 2019-04-12 10:45 | CONS ---
CONSULTATION REASON FOR CONSULT: Renal failure. HISTORY OF PRESENT ILLNESS: The patient is an 83-year-old male with history of chronic kidney disease NKF stage 3, secondary to diabetic nephropathy with baseline creatinine about 1.5 mg/dL and 1.5 to 1.6 mg/dL as of January of 2019. The patient was admitted to the hospital for cholecystectomy, which was done yesterday. Initially it was planned for laparoscopic however his gallbladder was large and therefore patient had an open cholecystectomy. PAST MEDICAL HISTORY: Significant for coronary artery disease, type 2 diabetes, hypertension, hyperlipidemia, CKD, colon cancer. PAST SURGICAL HISTORY: Bowel resection for colon cancer, coronary artery bypass surgery, pacemaker placement, hernia repair. SOCIAL HISTORY: Negative for smoking, drug abuse or alcohol abuse. MEDICATIONS: Medications at home prior to admission included amlodipine, Protonix, Lopressor, magnesium, Tradjenta, Imdur, Lasix, TriCor, Lipitor, aspirin, vitamin C, Pacerone. REVIEW OF SYSTEMS: As per HPI. The patient is complaining of abdominal pain, but this is better and he is maintained on pain medications. PHYSICAL EXAMINATION: On examination today, blood pressure was 179/69, heart rate 74 per minute. He is afebrile. EXAMINATION OF THE HEART: S1 and S2. EXAMINATION OF LUNGS: Good air entry bilaterally. ABDOMEN: Soft, nontender. Examination of lower extremities shows edema 1+ bilaterally. Abdomen is currently in a binder. DRUMS TE[employer]ER exam is grossly intact. LABS: Labs show sodium 138, potassium 4.1, chloride 102, BUN 22, creatinine 1.46. Hemoglobin 11.6 g/dL. ASSESSMENT: 1. Chronic kidney disease, NKF stage 3, secondary to diabetic nephropathy. Renal function at baseline. 2. Status post open cholecystectomy for gallstones. 3. Hypertension. Blood pressure was elevated; however, this could be from pain. Continue his home dose of Norvasc. 4. History of atrial fibrillation, maintained on amiodarone. PLAN: Continue with current dose of p.o. Lasix along with the Norvasc. Avoid nephrotoxic medications. Avoid hypotension. We will increase the Norvasc if blood pressure remains elevated. Repeat labs in a.m. Thank you for this consultation. We will continue to follow the patient with you during his hospitalization. MMODL / IJN: [id number] /
[2019-04-12 11:41] LABS: Glucose,Whole Blood 166 mg/dL (75-99)
--- NOTE | 2019-04-12 11:50 | P.PN ---
Subjective Progress Note Date: 04/12/19 CHIEF COMPLAINT: Cholelithiasis HISTORY OF PRESENT ILLNESS: 83-year-old male who is status post open cholecystectomy. Postop day #1. Patient examined this morning at the bedside. Patient reports his pain is tolerable at this time. Epidural is infusing. Jimenez catheter intact with clear yellow urine. Patient is tolerating diet without nausea or vomiting. Vital signs are stable. Patient is afebrile. PHYSICAL EXAM: VITAL SIGNS: Reviewed. GENERAL: Well-developed in no acute distress. HEENT: No sclera icterus. Extraocular movements grossly intact. Moist buccal mucosa. Head is atraumatic, normocephalic. ABDOMEN: Soft. Nondistended. Appropriate surgical tenderness. Dressing to right upper quadrant clean dry and intact. LAYTON drain with sanguinous drainage. NEUROLOGIC: Alert and oriented. Cranial nerves II through XII grossly intact. ASSESSMENT: 1. Cholelithiasis, status post open cholecystectomy PLAN: 1. Pain control. Continue epidural. Will remove postop day #3 2. Continue Jimenez catheter will epidural is in place 3. Increase activity as tolerated. Consult PT/OT 4. Incentive spirometer 10 times an hour while awake 5. Continue diet as tolerated 6. Monitor labs 7. Consult Dr. Rascon for medical management 8. Patient requesting [facility] at the time of discharge. Nurse practitioner note has been reviewed by physician. Signing provider agrees with the documented findings, assessment, and plan of care. Objective - Vital Signs Vital signs: Vital Signs Temp 98.0 F 04/12/19 08:05 Pulse 74 04/11/19 23:00 Resp 18 04/12/19 08:05 BP 179/69 04/12/19 08:05 Pulse Ox 92 L 04/12/19 08:05 Intake & Output 04/11/19 04/12/19 04/12/19 18:59 06:59 18:59 Intake Total 1550 Output Total 100 1207 Balance 1450 -1207 Intake: IV 1550 Output: Urine 820 Post Void Residual 387 Estimated Blood Loss 100 Other: Voiding Method Indwelling Catheter Indwelling Catheter # Voids 0 - Labs CBC & Chem 7: 04/12/19 09:35 04/12/19 09:35 Labs: Abnormal Lab Results - Last 24 Hours (Table) 04/11/19 04/11/19 04/12/19 Range/Units 16:50 20:11 07:14 RBC (4.30-5.90) m/uL Hgb (13.0-17.5) gm/dL Hct (39.0-53.0) % Lymphocytes # (1.0-4.8) k/uL BUN (9-20) mg/dL Creatinine (0.66-1.25) mg/dL Glucose (74-99) mg/dL POC Glucose (mg/dL) 194 H 202 H 143 H (75-99) mg/dL AST (17-59) U/L 04/12/19 04/12/19 04/12/19 Range/Units 09:35 09:35 11:39 RBC 3.77 L (4.30-5.90) m/uL Hgb 11.6 L (13.0-17.5) gm/dL Hct 35.7 L (39.0-53.0) % Lymphocytes # 0.6 L (1.0-4.8) k/uL BUN 22 H (9-20) mg/dL Creatinine 1.46 H (0.66-1.25) mg/dL Glucose 194 H (74-99) mg/dL POC Glucose (mg/dL) 166 H (75-99) mg/dL AST 73 H (17-59) U/L
--- NOTE | 2019-04-12 12:09 | P.PN ---
Progress Note - Text Anesthesia POD 1. Status Post open cholecystectomy under general endotracheal anesthesia with an epidrual catheter placed at T10 for post surgical pain releif. VAS (2, 4) with Ropivicaine 0.1 % and Dilaudid 10 mcg / cc running at 6 cc / hr. Lower extremity strength (4/4). No sedation. Site looks OK.
[2019-04-12 16:57] LABS: Glucose,Whole Blood 136 mg/dL (75-99)
[2019-04-12 18:21] LABS: Hemoglobin A1C 7.2 % (4.0-6.0)
[2019-04-12 19:39] LABS: Glucose,Whole Blood 178 mg/dL (75-99)
--- NOTE | 2019-04-12 20:25 | P.CONS ---
History of Present Illness - Reason for Consult Consult date: 04/12/19 Medical management diabetes mellitus, hypertension, anxiety Requesting physician: Anup Fernando - Chief Complaint Right upper quadrant abdominal pain - History of Present Illness Is a 83-year-old gentleman with history of CAD, history of CABG, diabetes mellitus, hypertension, hyperlipidemia,: CTA, anxiety, depression and multiple other medical issues. Patient is status post open cholecystectomy secondary to adhesions. Tolerated procedure well. Pain controlled via epidural. Tolerating clear liquid diet with no nausea vomiting or diarrhea. Passing flatus, no bowel movement. Eyes chest pain, palpitations.VSS. Review of Systems ROS Statement: Those systems with pertinent positive or pertinent negative responses have been documented in the HPI. ROS Other: All systems not noted in ROS Statement are negative. 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 lives in an assisted living facility. pt is independent and still drives. Smoking Status: Never smoker Past Alcohol Use History: Rare Past Drug Use History: None Reported - Past Family History Mother Family Medical History: No Reported History Medications and Allergies Home Medications Medication Instructions Recorded Confirmed Type Ascorbic Acid [Vitamin C] 1,000 mg PO DAILY 04/03/15 04/10/19 History Aspirin EC [Ecotrin Low Dose] 81 mg PO DAILY 04/03/15 04/10/19 History Fenofibrate Nanocrystallized 145 mg PO DAILY 04/03/15 04/10/19 History [Tricor] amLODIPine [Norvasc] 5 mg PO DAILY 01/29/18 04/10/19 History Isosorbide Mononitrate ER [Imdur] 30 mg PO DAILY #30 tab.er.24h 01/30/18 04/10/19 Rx Pantoprazole [Protonix] 40 mg PO AC-BRKFST #30 tablet. 01/30/18 04/10/19 Rx Atorvastatin [Lipitor] 40 mg PO HS 10/30/18 04/10/19 History Amiodarone HCl [Pacerone] 200 mg PO DAILY 01/12/19 04/10/19 History Cyanocobalamin (Vitamin B-12) 1,000 mcg PO DAILY 01/12/19 04/10/19 History [Vitamin B-12] Furosemide [Lasix] 40 mg PO DAILY 01/12/19 04/10/19 History Linagliptin [Tradjenta] 5 mg PO DAILY 01/12/19 04/10/19 History Magnesium Oxide [Mag-Oxide] 200 mg PO DAILY 3 Days #5 tablet 01/12/19 04/10/19 Rx Metoprolol Tartrate [Lopressor] 25 mg PO DAILY 04/10/19 04/10/19 History Allergies Allergy/AdvReac Type Severity Reaction Status Date / Time tamsulosin [From Flomax] Allergy fainting Verified 04/11/19 08:40 Physical Exam Vitals: Vital Signs Temp Pulse Resp BP BP Pulse Ox 04/12/19 08:05 98.0 F 18 179/69 92 L 04/11/19 23:45 18 04/11/19 23:00 98.0 F 74 20 149/75 91 L 04/11/19 20:30 70 16 04/11/19 15:45 70 165/77 90 L 04/11/19 15:30 71 171/89 92 L 04/11/19 15:15 71 176/89 91 L 04/11/19 14:50 69 166/84 91 L 04/11/19 14:35 61 152/77 92 L 04/11/19 14:20 98.7 F 62 17 161/82 89 L 04/11/19 14:00 59 L 16 147/72 96 04/11/19 13:35 59 L 16 140/65 95 04/11/19 13:30 59 L 16 138/65 93 L 04/11/19 13:15 61 16 154/77 04/11/19 13:00 60 16 155/72 97 04/11/19 12:45 62 16 200/86 96 04/11/19 12:30 62 16 186/88 92 L 04/11/19 12:15 60 16 177/89 93 L 04/11/19 12:12 98.6 F 70 18 176/86 95 Intake and Output 04/11/19 04/12/19 04/12/19 22:59 06:59 14:59 Output Total 807 400 Balance -807 -400 Output: Urine 420 400 Post Void Residual 387 Other: Voiding Method Urinal Indwelling Catheter Indwelling Catheter VITAL SIGNS: As above GENERAL: Sitting up in bed, no acute distress HEENT: Head atraumatic ,Conjunctivae normal. Oral mucosa moist NECK: No JVD. No thyroid enlargement. No LNs CARDIOVASCULAR: S1, S2 regular.systolic murmur, no gallops, no rubs. RESPIRATION: Breath sounds diminished in the bases. No rhonchi or crackles. No wheezing, No bronchial breathing. ABDOMEN: Soft, status post surgery, right upper quadrant dressing clean dry and intact. LAYTON drain with sanguinous drainage. No guarding. Bowel sounds heard. LEGS: No edema. no swelling. PSYCHIATRY: Alert and oriented -3, mood and affect normal. NERVOUS SYSTEM: Cranial N 2-12 grossly normal. Moves all 4 limbs. Diffuse weakness No focal deficits. Strength and sensation grossly intact.. Skin: no lesions, no rash Lymphatic system. No LN neck axilla or groin. Results CBC & Chem 7: 04/12/19 09:35 04/12/19 09:35 Labs: Abnormal Lab Results - Last 24 Hours (Table) 04/11/19 04/11/19 04/12/19 Range/Units 16:50 20:11 07:14 RBC (4.30-5.90) m/uL Hgb (13.0-17.5) gm/dL Hct (39.0-53.0) % Lymphocytes # (1.0-4.8) k/uL BUN (9-20) mg/dL Creatinine (0.66-1.25) mg/dL Glucose (74-99) mg/dL POC Glucose (mg/dL) 194 H 202 H 143 H (75-99) mg/dL AST (17-59) U/L 04/12/19 04/12/19 Range/Units 09:35 09:35 RBC 3.77 L (4.30-5.90) m/uL Hgb 11.6 L (13.0-17.5) gm/dL Hct 35.7 L (39.0-53.0) % Lymphocytes # 0.6 L (1.0-4.8) k/uL BUN 22 H (9-20) mg/dL Creatinine 1.46 H (0.66-1.25) mg/dL Glucose 194 H (74-99) mg/dL POC Glucose (mg/dL) (75-99) mg/dL AST 73 H (17-59) U/L Assessment and Plan Assessment: -Cholelithiasis ,Status post open cholecystectomy -Chronic kidney disease, stage III secondary to diabetes mellitus, baseline 1.3- 1.5 -CAD with history of CABG -Diabetes mellitus -Hypertension -Hyperlipidemia Plan: Continue on current medication regime ,monitoring and symptomatic treatment. Pain management/diet advancement as per surgery. Aggressive pulmonary toileting with incentive spirometer ordered. Increase ambulation as tolerated. GI and DVT prophylaxis in place. PT/OT. Subacute rehab at discharge. The impression and plan of care has been dictated as directed. : I performed a history and examination of this patient, discussed the same with the dictator. I agree with the dictator's note ,documented as a scribe. Any additional findings or plans will be noted.
[2019-04-12] MEDS: ATORVASTATIN 40 MG TAB PO SCH (23:26)
[2019-04-13 06:59] LABS: Glucose,Whole Blood 151 mg/dL (75-99)
[2019-04-13 07:06] LABS: Basophils % (A) 0 %; Eosinophils # (A) 0.3 k/uL (0-0.7); Eosinophils % (A) 4 %; HCT 35.1 % (39.0-53.0); HGB 11.1 gm/dL (13.0-17.5); Lymphocytes # (A) 0.7 k/uL (1.0-4.8); Lymphocytes % (A) 9 %; MCHC 31.6 g/dL (31.0-37.0); MCV 94.8 fL (80.0-100.0); Mean Platelet Volume 6.5; Monocytes # (A) 0.8 k/uL (0-1.0); Monocytes % (A) 10 %; Neutrophils # (A) 5.7 k/uL (1.3-7.7); Neutrophils % (A) 75 %; Platelet Count 141 k/uL (150-450); WBC 7.6 k/uL (3.8-10.6)
[2019-04-13 07:08] LABS: Calcium 8.2 mg/dL (8.4-10.2); Potassium 3.8 mmol/L (3.5-5.1)
[2019-04-13] MEDS: INSULIN ASPART (NovoLOG) 100 UNIT/ML VIAL SQ SCH ×4 (07:32→20:00)
[2019-04-13] MEDS: ENOXAPARIN 30 MG/0.3 ML SYRINGE SQ SCH (07:32)
[2019-04-13] MEDS: ASPIRIN 81 MG PO SCH (07:33)
[2019-04-13] MEDS: FENOFIBRATE 160 MG TAB PO SCH (07:33)
[2019-04-13] MEDS: CYANOCOBALAMIN 500 MCG TAB PO SCH (07:33)
[2019-04-13] MEDS: METOPROLOL TARTRATE 25 MG TAB PO SCH (07:33)
[2019-04-13] MEDS: ASCORBIC ACID 500 MG TAB PO SCH (07:33)
[2019-04-13] MEDS: amLODIPine 5 MG TAB PO SCH (07:33)
[2019-04-13] MEDS: LINAGLIPTIN 5 MG TABLET PO SCH (07:33)
[2019-04-13] MEDS: AMIODARONE 200 MG TAB PO SCH (07:33)
[2019-04-13] MEDS: ISOSORBIDE MONONITRATE ER 30 MG TAB.ER.24H PO SCH (07:34)
[2019-04-13] MEDS: FUROSEMIDE 40 MG TAB PO SCH (07:34)
[2019-04-13] MEDS: PANTOPRAZOLE 40 MG TABLET PO SCH (07:34)
[2019-04-13] MEDS: MAGNESIUM OXIDE 400 MG TAB PO SCH (07:34)
--- NOTE | 2019-04-13 08:02 | P.PN ---
Progress Note - Text 04/13 722am 83-year-old male status post lap cholecystectomy by Dr. Fernando. Patient has an epidural catheter for postop pain control, patient was seen this morning and evaluated for pain control. Patient has a VAS of 1 with no motor or sensory deficits noted plan to continue epidural infusion
[2019-04-13 11:39] LABS: Glucose,Whole Blood 144 mg/dL (75-99)
--- NOTE | 2019-04-13 12:03 | P.PN ---
Subjective Progress Note Date: 04/13/19 Is a pleasant 83-year-old white male who was admitted after laparoscopic open cholecystectomy. He is doing well but is very weak and doesn't feel that he can go home because of primary caregiver is himself. With this most likely he'll be arranged for inpatient rehabilitation short-term. He denies any shortness of breath he admits to some slight sputum production and he is having difficulty with his incentive spirometry. His pain is relatively good control. Objective - Vital Signs Vital signs: Vital Signs Temp 98.3 F 04/13/19 07:00 Pulse 67 04/13/19 07:00 Resp 14 04/13/19 07:00 BP 178/82 04/13/19 07:00 Pulse Ox 90 L 04/13/19 07:00 Intake & Output 04/12/19 04/13/19 04/13/19 18:59 06:59 18:59 Intake Total 208 Output Total 1000 1100 0 Balance -792 -1100 0 Intake: IV 208 Lactated Ringers 1,000 ml 160 @ 20 mls/hr IV .Q24H [facility] Rx#:[id number] Ropivacaine 250 mg 48 Hydromorphone (Pf) 2.5 mg In Sodium Chloride 0.9% 200 ml @ Per Protocol EPIDURAL .Q0M PRN Rx#: [id number] Output: Drainage 0 0 Groin 0 0 Urine 1000 1100 Uretheral (Jimenez) 1000 Other: Voiding Method Indwelling Catheter Indwelling Catheter Indwelling Catheter - Exam VITAL SIGNS: As above GENERAL: Sitting up in bed, no acute distress HEENT: Head atraumatic ,Conjunctivae normal. Oral mucosa moist NECK: No JVD. No thyroid enlargement. No LNs CARDIOVASCULAR: S1, S2 regular.systolic murmur, no gallops, no rubs. RESPIRATION: Breath sounds diminished in the bases. No rhonchi or crackles. No wheezing, No bronchial breathing. ABDOMEN: Soft, status post surgery, right upper quadrant dressing clean dry and intact. LAYTON drain with sanguinous drainage. No guarding. Bowel sounds heard. LEGS: No edema. no swelling. PSYCHIATRY: Alert and oriented -3, mood and affect normal. NERVOUS SYSTEM: Cranial N 2-12 grossly normal. Moves all 4 limbs. Diffuse weakness No focal deficits. Strength and sensation grossly intact.. Skin: no lesions, no rash Lymphatic system. No LN neck axilla or groin. - Labs CBC & Chem 7: 04/13/19 06:29 04/13/19 06:29 Labs: Abnormal Lab Results - Last 24 Hours (Table) 04/12/19 04/12/19 04/12/19 Range/Units 09:35 16:53 19:39 RBC (4.30-5.90) m/uL Hgb (13.0-17.5) gm/dL Hct (39.0-53.0) % Plt Count (150-450) k/uL Lymphocytes # (1.0-4.8) k/uL Sodium (137-145) mmol/L BUN (9-20) mg/dL Creatinine (0.66-1.25) mg/dL Glucose (74-99) mg/dL POC Glucose (mg/dL) 136 H 178 H (75-99) mg/dL Hemoglobin A1c 7.2 H (4.0-6.0) % Calcium (8.4-10.2) mg/dL 04/13/19 04/13/19 04/13/19 Range/Units 06:29 06:29 06:53 RBC 3.70 L (4.30-5.90) m/uL Hgb 11.1 L (13.0-17.5) gm/dL Hct 35.1 L (39.0-53.0) % Plt Count 141 L (150-450) k/uL Lymphocytes # 0.7 L (1.0-4.8) k/uL Sodium 136 L (137-145) mmol/L BUN 22 H (9-20) mg/dL Creatinine 1.37 H (0.66-1.25) mg/dL Glucose 136 H (74-99) mg/dL POC Glucose (mg/dL) 151 H (75-99) mg/dL Hemoglobin A1c (4.0-6.0) % Calcium 8.2 L (8.4-10.2) mg/dL 04/13/19 Range/Units 11:37 RBC (4.30-5.90) m/uL Hgb (13.0-17.5) gm/dL Hct (39.0-53.0) % Plt Count (150-450) k/uL Lymphocytes # (1.0-4.8) k/uL Sodium (137-145) mmol/L BUN (9-20) mg/dL Creatinine (0.66-1.25) mg/dL Glucose (74-99) mg/dL POC Glucose (mg/dL) 144 H (75-99) mg/dL Hemoglobin A1c (4.0-6.0) % Calcium (8.4-10.2) mg/dL Assessment and Plan (1) Weakness Current Visit: Yes Status: Acute Code(s): R53.1 - WEAKNESS SNOMED Code(s): 69338642 (2) Cholelithiasis Current Visit: Yes Status: Acute Code(s): K80.20 - CALCULUS OF GALLBLADDER W/O CHOLECYSTITIS W/O OBSTRUCTION SNOMED Code(s): 608153817 (3) CAD (coronary artery disease) Current Visit: No Status: Acute Code(s): I25.10 - ATHSCL HEART DISEASE OF N ATIVE CORONARY ARTERY W/O ANG PCTRS SNOMED Code(s): 60648717 (4) History of coronary artery bypass graft Current Visit: No Status: Acute Code(s): Z95.1 - PRESENCE OF AORTOCORONARY BYPASS GRAFT SNOMED Code(s): 460752684 Plan: Patient will continue postoperative care DVT prophylaxis and incentive spirometry. He most likely will need inpatient rehabilitation for some period of time secondary to his weakness this currently being arranged discharge when cleared by surgery.
--- NOTE | 2019-04-13 13:07 | P.PN ---
Subjective Progress Note Date: 04/13/19 CHIEF COMPLAINT: Cholelithiasis HISTORY OF PRESENT ILLNESS: 83-year-old male who is status post open cholecystectomy. Postop day #2. Patient examined at the bedside with Dr. Fernando. Patient reports his pain is tolerable at this time. Epidural is infusing. Jimenez catheter intact with clear yellow urine. Patient is tolerating diet without nausea or vomiting. Vital signs are stable. Patient is afebrile. PHYSICAL EXAM: VITAL SIGNS: Reviewed. GENERAL: Well-developed in no acute distress. HEENT: No sclera icterus. Extraocular movements grossly intact. Moist buccal mucosa. Head is atraumatic, normocephalic. ABDOMEN: Soft. Nondistended. Appropriate surgical tenderness. Dressing to right upper quadrant clean dry and intact. LAYTON drain with sanguinous drainage. NEUROLOGIC: Alert and oriented. Cranial nerves II through XII grossly intact. ASSESSMENT: 1. Cholelithiasis, status post open cholecystectomy PLAN: 1. Pain control. Continue epidural. Will remove postop day #3 2. Continue Jimenez catheter will epidural is in place 3. Increase activity as tolerated. PT/OT on consult 4. Incentive spirometer 10 times an hour while awake 5. Continue diet as tolerated 6. Monitor labs 7. Medical management per Dr. Rascon 8. Patient requesting [facility] at the time of discharge. Per case management, earliest patient may be discharged will be Wednesday to [facility] due to insurance Nurse practitioner note has been reviewed by physician. Signing provider agrees with the documented findings, assessment, and plan of care. Objective - Vital Signs Vital signs: Vital Signs Temp 98.3 F 04/13/19 07:00 Pulse 67 04/13/19 07:00 Resp 14 04/13/19 07:00 BP 178/82 04/13/19 07:00 Pulse Ox 90 L 04/13/19 07:00 Intake & Output 04/12/19 04/13/19 04/13/19 18:59 06:59 18:59 Intake Total 208 Output Total 1000 1100 0 Balance -792 -1100 0 Intake: IV 208 Lactated Ringers 1,000 ml 160 @ 20 mls/hr IV .Q24H [facility] Rx#:[id number] Ropivacaine 250 mg 48 Hydromorphone (Pf) 2.5 mg In Sodium Chloride 0.9% 200 ml @ Per Protocol EPIDURAL .Q0M PRN Rx#: [id number] Output: Drainage 0 0 Groin 0 0 Urine 1000 1100 Uretheral (Jimenez) 1000 Other: Voiding Method Indwelling Catheter Indwelling Catheter Indwelling Catheter - Labs CBC & Chem 7: 04/13/19 06:29 04/13/19 06:29 Labs: Abnormal Lab Results - Last 24 Hours (Table) 04/12/19 04/12/19 04/12/19 Range/Units 09:35 16:53 19:39 RBC (4.30-5.90) m/uL Hgb (13.0-17.5) gm/dL Hct (39.0-53.0) % Plt Count (150-450) k/uL Lymphocytes # (1.0-4.8) k/uL Sodium (137-145) mmol/L BUN (9-20) mg/dL Creatinine (0.66-1.25) mg/dL Glucose (74-99) mg/dL POC Glucose (mg/dL) 136 H 178 H (75-99) mg/dL Hemoglobin A1c 7.2 H (4.0-6.0) % Calcium (8.4-10.2) mg/dL 04/13/19 04/13/19 04/13/19 Range/Units 06:29 06:29 06:53 RBC 3.70 L (4.30-5.90) m/uL Hgb 11.1 L (13.0-17.5) gm/dL Hct 35.1 L (39.0-53.0) % Plt Count 141 L (150-450) k/uL Lymphocytes # 0.7 L (1.0-4.8) k/uL Sodium 136 L (137-145) mmol/L BUN 22 H (9-20) mg/dL Creatinine 1.37 H (0.66-1.25) mg/dL Glucose 136 H (74-99) mg/dL POC Glucose (mg/dL) 151 H (75-99) mg/dL Hemoglobin A1c (4.0-6.0) % Calcium 8.2 L (8.4-10.2) mg/dL 04/13/19 Range/Units 11:37 RBC (4.30-5.90) m/uL Hgb (13.0-17.5) gm/dL Hct (39.0-53.0) % Plt Count (150-450) k/uL Lymphocytes # (1.0-4.8) k/uL Sodium (137-145) mmol/L BUN (9-20) mg/dL Creatinine (0.66-1.25) mg/dL Glucose (74-99) mg/dL POC Glucose (mg/dL) 144 H (75-99) mg/dL Hemoglobin A1c (4.0-6.0) % Calcium (8.4-10.2) mg/dL
[2019-04-13 16:55] LABS: Glucose,Whole Blood 159 mg/dL (75-99)
--- NOTE | 2019-04-13 17:26 | PN ---
PROGRESS NOTE Patient is seen for followup for CKD. He is status post open cholecystectomy for gallstones. Patient's renal function is stable. Creatinine is 1.3 from 1.4 yesterday. Patient is allowed to eat. He was maintained on IV fluids, which are now discontinued. PHYSICAL EXAMINATION: On examination today, blood pressure was 178/82, heart rate 67 per minute. Patient is afebrile. EXAMINATION OF THE HEART: S1 and S2. EXAMINATION OF LUNGS: Bilateral breath sounds are heard. ABDOMEN: Soft. Minimal tenderness noted. Examination of lower extremities shows no significant edema. LABS: Hemoglobin 11.1, sodium 136, potassium 3.8, BUN 22, creatinine 1.37. ASSESSMENT: 1. Chronic kidney disease, NKF stage III, secondary to nephrosclerosis. Renal function is stable. 2. Status post open cholecystectomy for cholelithiasis, currently doing well. 3. Mild volume depletion, now resolved. 4. Hypertension. Blood pressure was elevated this morning; however, it has improved now. PLAN: Continue current medications, including oral Lasix. Continue to encourage increased oral intake. Avoid nephrotoxic medications. Avoid hypotension. Patient is stable for discharge from nephrology standpoint. MMODL / IJN: [id number] /
[2019-04-13 19:50] LABS: Glucose,Whole Blood 169 mg/dL (75-99)
[2019-04-13] MEDS: ATORVASTATIN 40 MG TAB PO SCH ×2 (20:00→20:06)
[2019-04-14 05:09] LABS: Appearance,Urine Clear (Clear); Bacteria,Urine Rare /hpf; Bilirubin,Urine Negative (Negative); Blood,Urine Moderate (Negative); Color,Urine Yellow; Glucose,Urine (UA) Trace (Negative); Hyaline Casts,Urine 1 /lpf (0-2); Ketones,Urine Negative (Negative); Leukocyte Esterase,Urine Trace (Negative); Mucus,Urine Rare /hpf; Nitrite,Urine Negative (Negative); PH, Urine 5.5 (5.0-8.0); Protein,Urine 2+ (Negative); RBC,Urine 8 /hpf (0-5); Specific Gravity,Urine 1.016 (1.001-1.035); Squamous Epithelial Cell,Urine 1 /hpf (0-4); Urobilinogen,Urine <2.0 mg/dL (<2.0); WBC,Urine 6 /hpf (0-5)
[2019-04-14 07:05] LABS: Glucose,Whole Blood 154 mg/dL (75-99)
[2019-04-14] MEDS: ASCORBIC ACID 500 MG TAB PO SCH (09:41)
[2019-04-14] MEDS: METOPROLOL TARTRATE 25 MG TAB PO SCH (09:41)
[2019-04-14] MEDS: ISOSORBIDE MONONITRATE ER 30 MG TAB.ER.24H PO SCH (09:41)
[2019-04-14] MEDS: AMIODARONE 200 MG TAB PO SCH (09:41)
[2019-04-14] MEDS: LINAGLIPTIN 5 MG TABLET PO SCH (09:41)
[2019-04-14] MEDS: PANTOPRAZOLE 40 MG TABLET PO SCH (09:42)
[2019-04-14] MEDS: FUROSEMIDE 40 MG TAB PO SCH (09:42)
[2019-04-14] MEDS: CYANOCOBALAMIN 500 MCG TAB PO SCH (09:42)
[2019-04-14] MEDS: FENOFIBRATE 160 MG TAB PO SCH (09:42)
[2019-04-14] MEDS: INSULIN ASPART (NovoLOG) 100 UNIT/ML VIAL SQ SCH ×4 (09:42→21:14)
[2019-04-14] MEDS: ASPIRIN 81 MG PO SCH (09:42)
[2019-04-14] MEDS: ENOXAPARIN 30 MG/0.3 ML SYRINGE SQ SCH (09:43)
[2019-04-14] MEDS: MAGNESIUM OXIDE 400 MG TAB PO SCH (09:46)
[2019-04-14] MEDS ORDERED: BISACODYL 10 MG SUPP RECTAL STA (10:02)
--- NOTE | 2019-04-14 10:53 | P.PN ---
Progress Note - Text Progress Note Date: 04/14/19 Patient is post-op day #3 open cholecystectomy Currently has thoracic epidural insitu infusing at 6 ml/hr Patient complains of increased pain with ambulation VAS 6/10 Patient is afebrile, epidural site clean and dry, no erythema, VSS Patient did receive Lovenox 30 mg this morning at 0945 Plan: D/C thoracic epidural at 10 pm today Wait at least 6 hours between removal of epidural catheter and next dose of Lovenox. While epidural is in situ, continue to infuse as needed for pain.
--- NOTE | 2019-04-14 11:07 | P.PN ---
Subjective Patient is seen in follow-up for chronic kidney disease. Creatinine 1.37 as of yesterday. Patient underwent open cholecystectomy this admission. Still admits to soreness in his stomach. Oral intake is gradually improving. No vomiting or diarrhea. Vital signs are stable. General: The patient appeared well nourished and normally developed. HEENT: Head exam is unremarkable. Neck is without jugular venous distension. LUNGS: Lungs are clear to auscultation and percussion. Breath sounds decreased. HEART: Rate and Rhythm are regular. First and second heart sounds normal. No murmurs, rubs or gallops. ABDOMEN: Abdominal exam reveals normal bowel sounds. Non-tender and non- distended. No evidence of peritonitis. EXTREMITITES: No clubbing, cyanosis, or edema. Objective - Vital Signs Vital signs: Vital Signs Temp 99 F 04/14/19 08:39 Pulse 78 04/14/19 08:39 Resp 18 04/14/19 08:39 BP 168/81 04/14/19 08:39 Pulse Ox 92 L 04/14/19 08:39 Intake & Output 04/13/19 04/14/19 04/14/19 18:59 06:59 18:59 Output Total 900 1850 Balance -900 -1850 Output: Drainage 0 0 Groin 0 0 Urine 900 1850 Other: Voiding Method Indwelling Catheter Indwelling Catheter Indwelling Catheter - Labs CBC & Chem 7: 04/13/19 06:29 04/13/19 06:29 Labs: Abnormal Lab Results - Last 24 Hours (Table) 04/13/19 04/13/19 04/13/19 Range/Units 11:37 16:51 19:48 POC Glucose (mg/dL) 144 H 159 H 169 H (75-99) mg/dL Urine Protein (Negative) Urine Glucose (UA) (Negative) Urine Blood (Negative) Ur Leukocyte Esterase (Negative) Urine RBC (0-5) /hpf Urine WBC (0-5) /hpf Urine Bacteria (None) /hpf Urine Mucus (None) /hpf 04/14/19 04/14/19 Range/Units 04:44 07:02 POC Glucose (mg/dL) 154 H (75-99) mg/dL Urine Protein 2+ H (Negative) Urine Glucose (UA) Trace H (Negative) Urine Blood Moderate H (Negative) Ur Leukocyte Esterase Trace H (Negative) Urine RBC 8 H (0-5) /hpf Urine WBC 6 H (0-5) /hpf Urine Bacteria Rare H (None) /hpf Urine Mucus Rare H (None) /hpf Assessment and Plan Plan: Assessment: 1. Chronic kidney disease stage III with baseline creatinine in the range of 1.3-1.5 secondary to diabetic kidney disease. Creatinine 1.37 as of yesterday. 2. Status post open cholecystectomy on April 11. 3. Mild volume overload maintained on oral Lasix. 4. Hypertension with chronic any disease. Patient is a contributor factor. 5. Diabetes mellitus. Plan: Encourage oral intake. Maintain Lasix 40 mg orally daily. Avoid nephrotoxins. Repeat electrolytes in the morning.
[2019-04-14] MEDS: amLODIPine 5 MG TAB PO SCH (11:09)
[2019-04-14 11:34] LABS: Glucose,Whole Blood 206 mg/dL (75-99)
[2019-04-14] MEDS ORDERED: diphenhydrAMINE 25 MG CAP PO PRN (11:46)
[2019-04-14] MEDS: METOCLOPRAMIDE 5 MG/ML 2 ML VIAL IVP SCH ×3 (12:13→23:57)
[2019-04-14] MEDS ORDERED: HYDROcodone/APAP 5-325MG 1 EACH TAB PO PRN (13:01)
--- NOTE | 2019-04-14 13:02 | P.PN ---
Subjective Progress Note Date: 04/14/19 CHIEF COMPLAINT: Cholelithiasis HISTORY OF PRESENT ILLNESS: 83-year-old male who is status post open cholecystectomy. Postop day #3. Patient examined at the bedside. Patient reports his pain is tolerable at this time. Epidural is infusing. Jones catheter intact with clear yellow urine. Patient is tolerating diet without nausea or vomiting. Patient reports feeling bloated. He denies passing flatus. Vital signs are stable. Patient is afebrile. PHYSICAL EXAM: VITAL SIGNS: Reviewed. GENERAL: Well-developed in no acute distress. HEENT: No sclera icterus. Extraocular movements grossly intact. Moist buccal mucosa. Head is atraumatic, normocephalic. ABDOMEN: Soft. Mildly distended.. Appropriate surgical tenderness. Dressing to right upper quadrant clean dry and intact. LAYTON drain with sanguinous drainage. NEUROLOGIC: Alert and oriented. Cranial nerves II through XII grossly intact. ASSESSMENT: 1. Cholelithiasis, status post open cholecystectomy PLAN: -Pain control. Patient received Lovenox at 1000 today. Discontinue epidural tonight at 2200. Remove jones catheter after epidural is removed. -Increase activity as tolerated. PT/OT on consult -Incentive spirometer 10 times an hour while awake -Decrease diet to full liquids due to abdominal bloating and patient not passing any flatus -Begin Reglan q6 hours -Dulcolax suppository 1 -Patient has been accepted at [facility] at the time of discharge. Patient will be discharged tomorrow to [facility] tomorrow if he Remains stable. Nurse practitioner note has been reviewed by physician. Signing provider agrees with the documented findings, assessment, and plan of care. Objective - Vital Signs Vital signs: Vital Signs Temp 99 F 04/14/19 08:39 Pulse 78 04/14/19 08:39 Resp 18 04/14/19 08:39 BP 168/81 04/14/19 08:39 Pulse Ox 92 L 04/14/19 08:39 Intake & Output 04/13/19 04/14/19 04/14/19 18:59 06:59 18:59 Output Total 900 1850 Balance -900 -1850 Output: Drainage 0 0 Groin 0 0 Urine 900 1850 Other: Voiding Method Indwelling Catheter Indwelling Catheter Indwelling Catheter - Labs CBC & Chem 7: 04/13/19 06:29 04/13/19 06:29 Labs: Abnormal Lab Results - Last 24 Hours (Table) 04/13/19 04/13/19 04/14/19 Range/Units 16:51 19:48 04:44 POC Glucose (mg/dL) 159 H 169 H (75-99) mg/dL Urine Protein 2+ H (Negative) Urine Glucose (UA) Trace H (Negative) Urine Blood Moderate H (Negative) Ur Leukocyte Esterase Trace H (Negative) Urine RBC 8 H (0-5) /hpf Urine WBC 6 H (0-5) /hpf Urine Bacteria Rare H (None) /hpf Urine Mucus Rare H (None) /hpf 04/14/19 04/14/19 Range/Units 07:02 11:32 POC Glucose (mg/dL) 154 H 206 H (75-99) mg/dL Urine Protein (Negative) Urine Glucose (UA) (Negative) Urine Blood (Negative) Ur Leukocyte Esterase (Negative) Urine RBC (0-5) /hpf Urine WBC (0-5) /hpf Urine Bacteria (None) /hpf Urine Mucus (None) /hpf
[2019-04-14 16:57] LABS: Glucose,Whole Blood 168 mg/dL (75-99)
[2019-04-14 21:04] LABS: Glucose,Whole Blood 159 mg/dL (75-99)
[2019-04-14] MEDS: ATORVASTATIN 40 MG TAB PO SCH (21:14)
[2019-04-15] MEDS: METOCLOPRAMIDE 5 MG/ML 2 ML VIAL IVP SCH ×2 (06:19→12:28)
[2019-04-15 06:57] LABS: Glucose,Whole Blood 135 mg/dL (75-99)
[2019-04-15 07:42] VITALS: BP 148/78; PULSE 68; RESP 16; TEMP 98
[2019-04-15] MEDS: INSULIN ASPART (NovoLOG) 100 UNIT/ML VIAL SQ SCH ×2 (07:51→12:34)
--- NOTE | 2019-04-15 08:43 | P.PN ---
Subjective Progress Note Date: 04/15/19 This is an 83-year-old male seen in consultation because of chronic kidney disease stage III. He has diabetic nephropathy. He was admitted and had cholecystectomy dated 04/11/2019. Postop he is complaining of fatigue and not feeling well ever since surgery. He complains of cough with green sputum and mildly short of breath. Otherwise denies any fever chills nausea vomiting diarrhea. He had a good appetite. Urine and bowel habits are unremarkable His baseline creatinine is about 1.4 as of 09/26/2018. It has fluctuated between 1.4-2.19. His admission creatinine was 1.4 and improved to 1.37 as of 04/13/2019 2 days ago. He is making good amount of urine. Blood pressure is controlled His past history significant for history of colon cancer and bowel resection coronary artery bypass graft, history of atrial fibrillation pacemaker and hernia repair Objective - Vital Signs Vital signs: Vital Signs Temp 98 F 04/15/19 07:00 Pulse 68 04/15/19 07:00 Resp 16 04/15/19 07:00 BP 148/78 04/15/19 07:00 Pulse Ox 97 04/15/19 07:00 Intake & Output 04/14/19 04/15/19 04/15/19 18:59 06:59 18:59 Intake Total 500 Output Total 250 100 Balance 500 -250 -100 Intake: Oral 500 Output: Urine 250 100 Other: Voiding Method Indwelling Catheter Indwelling Catheter On examination is awake alert oriented comfortable HEENT exam no JVP neck is supple no facial asymmetry Lungs are significant for an occasional coarse by basilar crackles with good air entry bilaterally Heart sounds were unremarkable seen to be in normal sinus rhythm Abdomen slightly distended nontender Extremity exam was mild edema Neurologically awake alert oriented but generalized weakness - Labs CBC & Chem 7: 04/13/19 06:29 04/13/19 06:29 Labs: Abnormal Lab Results - Last 24 Hours (Table) 04/14/19 04/14/19 04/14/19 Range/Units 11:32 16:54 21:01 POC Glucose (mg/dL) 206 H 168 H 159 H (75-99) mg/dL 04/15/19 Range/Units 06:55 POC Glucose (mg/dL) 135 H (75-99) mg/dL Assessment and Plan Plan: Assessment: 1. Chronic kidney disease stage III with baseline creatinine in the range of 1.3-1.5 secondary to diabetic kidney disease. Creatinine 1.37 as of 04/13/2019. 2. Status post open cholecystectomy on April 11. 3. Mild volume overload maintained on oral Lasix. With good urine output 4. Hypertension with chronic any disease. Patient is a contributor factor. 5. Diabetes mellitus. 6. History of coronary artery bypass graft, pacer, atrial fibrillation but currently seems to be normal sinus rhythm. 7. Complains of fatigue unclear as to why. He does have cough with green/yellow sputum. He is afebrile, has no white count hemoglobin is 11.1 as of 04/13/2019. Plan: 1. Chest x-ray to rule out any significant congestive heart failure Encourage oral intake. 2 in the meantime Maintain Lasix 40 mg orally daily. 3. Avoid nephrotoxins. 4. Repeat renal profile today as well as CBC
[2019-04-15] MEDS ORDERED: ENOXAPARIN 40 MG/0.4 ML SYRINGE SQ SCH (09:00)
[2019-04-15 09:27] LABS: Basophils # (A) 0.1 k/uL (0-0.2); Basophils % (A) 1 %; Eosinophils # (A) 0.3 k/uL (0-0.7); Eosinophils % (A) 4 %; HCT 34.8 % (39.0-53.0); HGB 11.6 gm/dL (13.0-17.5); Lymphocytes # (A) 0.6 k/uL (1.0-4.8); Lymphocytes % (A) 8 %; MCH 31.6 pg (25.0-35.0); MCHC 33.3 g/dL (31.0-37.0); MCV 94.9 fL (80.0-100.0); Mean Platelet Volume 5.8; Monocytes # (A) 0.5 k/uL (0-1.0); Monocytes % (A) 6 %; Neutrophils # (A) 6.6 k/uL (1.3-7.7); Neutrophils % (A) 80 %; Platelet Count 185 k/uL (150-450); RBC 3.67 m/uL (4.30-5.90); RDW 14.8 % (11.5-15.5); WBC 8.3 k/uL (3.8-10.6)
[2019-04-15 09:43] LABS: Albumin 3.3 g/dL (3.5-5.0); Calcium 8.7 mg/dL (8.4-10.2); Potassium 3.9 mmol/L (3.5-5.1); Total Bilirubin 0.9 mg/dL (0.2-1.3); Total Protein 6.3 g/dL (6.3-8.2)
[2019-04-15] MEDS: ASPIRIN 81 MG PO SCH (10:29)
[2019-04-15] MEDS: METOPROLOL TARTRATE 25 MG TAB PO SCH (10:29)
[2019-04-15] MEDS: FENOFIBRATE 160 MG TAB PO SCH (10:29)
[2019-04-15] MEDS: LINAGLIPTIN 5 MG TABLET PO SCH (10:29)
[2019-04-15] MEDS: AMIODARONE 200 MG TAB PO SCH (10:29)
[2019-04-15] MEDS: MAGNESIUM OXIDE 400 MG TAB PO SCH (10:30)
[2019-04-15] MEDS: CYANOCOBALAMIN 500 MCG TAB PO SCH (10:30)
[2019-04-15] MEDS: FUROSEMIDE 40 MG TAB PO SCH (10:31)
[2019-04-15] MEDS: amLODIPine 5 MG TAB PO SCH (10:31)
[2019-04-15] MEDS: ISOSORBIDE MONONITRATE ER 30 MG TAB.ER.24H PO SCH (10:31)
[2019-04-15] MEDS: ASCORBIC ACID 500 MG TAB PO SCH (10:31)
[2019-04-15] MEDS: PANTOPRAZOLE 40 MG TABLET PO SCH (10:31)
--- NOTE | 2019-04-15 10:35 | XR ---
EXAMINATION TYPE: XR chest 2V DATE OF EXAM: 04/15/2019 HISTORY: CHF . REFERENCE: Previous study dated 01/12/2019. FINDINGS: There has been a midline sternotomy. There is a multilead pacing there is blunting of the l eft CP angle. IMPRESSION: 1. WORSENING LEFT LOWER LOBE PNEUMONIA. 2. SCARRING VERSUS ATELECTASIS, BOTH LUNG BASES. 3. COPD. 4. BORDERLINE CARDIOMEGALY.
--- NOTE | 2019-04-15 10:38 | P.DS ---
Providers Date of admission: 04/12/19 11:45 Expected date of discharge: 04/15/19 Attending physician: Anup Fernando Consults: 04/12/19 10:16 Consult Physician Routine Consulting Provider: Tyson Rascon Consult Reason/Comments: medical management Do you want consulting provider notified?: Yes 04/14/19 10:08 Consult Physician Routine Consulting Provider: José Luis Gil Consult Reason/Comments: CRF Do you want consulting provider notified?: Already Contacted Primary care physician: Tyson Rascon [facility] Course: This is an 83-year-old male who underwent open cholecystectomy for symptomatically cholelithiasis. Patient did well postoperatively. Please see hospital chart for details. Procedures: Open cholecystectomy Patient Condition at Discharge: Good Plan - Discharge Summary Discharge Rx Participant: Yes New Discharge Prescriptions: New Hydrocodone/Acetaminophen [Acton 5-325] 1 tab PO Q4HR PRN 3 Days #18 tab PRN Reason: Pain No Action Aspirin EC [Ecotrin Low Dose] 81 mg PO DAILY Ascorbic Acid [Vitamin C] 1,000 mg PO DAILY Fenofibrate Nanocrystallized [Tricor] 145 mg PO DAILY amLODIPine [Norvasc] 5 mg PO DAILY Isosorbide Mononitrate ER [Imdur] 30 mg PO DAILY #30 tab.er.24h Pantoprazole [Protonix] 40 mg PO AC-BRKFST #30 tablet. Atorvastatin [Lipitor] 40 mg PO HS Linagliptin [Tradjenta] 5 mg PO DAILY Furosemide [Lasix] 40 mg PO DAILY Cyanocobalamin (Vitamin B-12) [Vitamin B-12] 1,000 mcg PO DAILY Amiodarone HCl [Pacerone] 200 mg PO DAILY Magnesium Oxide [Mag-Oxide] 200 mg PO DAILY 3 Days #5 tablet Metoprolol Tartrate [Lopressor] 25 mg PO DAILY Discharge Medication List Ascorbic Acid [Vitamin C] 1,000 mg PO DAILY 04/03/15 [History] Aspirin EC [Ecotrin Low Dose] 81 mg PO DAILY 04/03/15 [History] Fenofibrate Nanocrystallized [Tricor] 145 mg PO DAILY 04/03/15 [History] amLODIPine [Norvasc] 5 mg PO DAILY 01/29/18 [History] Isosorbide Mononitrate ER [Imdur] 30 mg PO DAILY #30 tab.er.24h 01/30/18 [Rx] Pantoprazole [Protonix] 40 mg PO RENA #30 tablet. 01/30/18 [Rx] Atorvastatin [Lipitor] 40 mg PO HS 10/30/18 [History] Amiodarone HCl [Pacerone] 200 mg PO DAILY 01/12/19 [History] Cyanocobalamin (Vitamin B-12) [Vitamin B-12] 1,000 mcg PO DAILY 01/12/19 [History] Furosemide [Lasix] 40 mg PO DAILY 01/12/19 [History] Linagliptin [Tradjenta] 5 mg PO DAILY 01/12/19 [History] Magnesium Oxide [Mag-Oxide] 200 mg PO DAILY 3 Days #5 tablet 01/12/19 [Rx] Metoprolol Tartrate [Lopressor] 25 mg PO DAILY 04/10/19 [History] Hydrocodone/Acetaminophen [Acton 5-325] 1 tab PO Q4HR PRN 3 Days #18 tab 04/14/19 [Rx] Follow up Appointment(s)/Referral(s): Anup Fernando MD [STAFF PHYSICIAN] - 04/18/19 4:20 pm Activity/Diet/Wound Care/Special Instructions: No driving while taking Acton No lifting over 10 pounds You may shower. No soaking or tub baths Very light activity until you are reevaluated at your follow up appointment with your surgeon Diet as tolerated Continue LAYTON drain at time of discharge
[2019-04-15 11:56] LABS: Glucose,Whole Blood 147 mg/dL (75-99)
--- NOTE | 2019-04-18 17:05 | P.OP ---
Date of Procedure: 04/11/19 Preoperative Diagnosis: Cholecystitis Postoperative Diagnosis: Current status Cholelithiasis Adhesions Procedure(s) Performed: Laparoscopic lysis of adhesions Open cholecystectomy Anesthesia: JONATHAN Surgeon: Anup Fernando Estimated Blood Loss (ml): 25 Pathology: other (Gallbladder) Condition: stable Disposition: PACU Description of Procedure: The patient's placed on the operative table in the supine position. He received general anesthesia. His abdomen was prepped and draped usual fashion. Using a 5 mm operative trocar in the left upper quadrant the perineal cavity is entered and then after adequate insufflation the laparoscope was placed in the pleural cavity. Next a 8 mm trochars placed in the epigastric position and then a fibrillar trocar is placed in the right lateral position. There were dense adhesions. The camera was then placed in the fibrillar trocar site in the gallbladder was partially visualized. However due the adhesions he was impossible former laparoscopic cholecystectomy. At this point the trochars withdrawn. A standard right subcostal incision was made. A large cautery used to divide the abdominal wall. The parents cavity is entered. A Bookwalter retractors placed a wound. The gallbladder was then grasped. The adhesions to the gallbladder then lysed using sharp dissection. The gallbladder was then taken down in a dome down technique. The cystic duct was then ligated with 0 silk tie. The cystic arteries and ligated with 2-0 silk tie. The cystic duct and started on cut. The specimen sent to pathology. The Bovie was used to obtain hemostasis in the liver bed. A LAYTON drains placed through separate stab incision and the LAYTON drains placed in the bed of the gallbladder. The fascia was then closed with looped #1 PDS suture. Skin was closed blanca. Patient top she will well and was sent to recovery room in stable condition.
== END 2019-04-15 12:40 | DRG 416 ==
LOC: OR 08:03 → 4SSUR 12:06 → OR 04-12 11:45 → 4SSUR 04-12 11:45
PROVIDERS: ADMIT Surgery; ATTEND Surgery
PROC: 0FJ44ZZ Inspection of Gallbladder, Percutaneous Endoscopic Approach (ICD-10-PCS; 2019-04-11)
PROC: 0FT40ZZ Resection of Gallbladder, Open Approach (ICD-10-PCS; principal; 2019-04-11 10:20)
DX: K80.20 Calculus of gallbladder without cholecystitis without obstruction (principal); E11.22 Type 2 diabetes mellitus with diabetic chronic kidney disease; E86.9 Volume depletion, unspecified; E87.70 Fluid overload, unspecified; I48.91 Unspecified atrial fibrillation; N18.3 Chronic kidney disease, stage 3 (moderate); E78.5 Hyperlipidemia, unspecified; F32.9 Major depressive disorder, single episode, unspecified; F41.9 Anxiety disorder, unspecified; H91.90 Unspecified hearing loss, unspecified ear; H54.61 Unqualified visual loss, right eye, normal vision left eye; I12.9 Hypertensive chronic kidney disease with stage 1 through stage 4 chronic kidney disease, or unspecified chronic kidney disease; I25.10 Atherosclerotic heart disease of native coronary artery without angina pectoris; R05 Cough; R06.02 Shortness of breath; R01.1 Cardiac murmur, unspecified; R53.83 Other fatigue; Z79.82 Long term (current) use of aspirin; Z79.84 Long term (current) use of oral hypoglycemic drugs; Z79.899 Other long term (current) drug therapy; Z85.038 Personal history of other malignant neoplasm of large intestine; Z95.1 Presence of aortocoronary bypass graft; Z95.810 Presence of automatic (implantable) cardiac defibrillator; Z90.49 Acquired absence of other specified parts of digestive tract; Z98.49 Cataract extraction status, unspecified eye; Z96.1 Presence of intraocular lens; Z88.8 Allergy status to other drugs, medicaments and biological substances
CPT/HCPCS: 71046; 80048; 80053; 81001; 83036; 85025; 88304

== ENCOUNTER 2019-09-22 14:25 | Emergency (ER) | payer MEDICARE, BC ==
[2019-09-22 14:43] VITALS: RESP 18
[2019-09-22] MEDS ORDERED: SODIUM CHLORIDE 0.9% 1,000 ML IV STA (15:36)
--- NOTE | 2019-09-22 15:56 | XR ---
EXAMINATION TYPE: XR chest 2V DATE OF EXAM: 09/22/2019 COMPARISON: 04/15/2019 HISTORY: Shortness of breath TECHNIQUE: Frontal and lateral views of the chest are obtained. FINDINGS: Scattered senescent parenchymal changes noted. Hyperinflation compatible with COPD. No evidence for infiltrate. No evidence for atelectasis. Heart size is stable. Mediastinal structures are stable and grossly unremarkable. No evidence for hilar prominence. Degenerative changes dorsal spine. IMPRESSION: 1. No evidence for acute pulmonary disease.
--- NOTE | 2019-09-22 16:20 | ED ---
Weakness HPI - General Chief complaint: Weakness Stated complaint: fever , sore roof of mouth Time Seen by Provider: 09/22/19 15:09 Source: patient, RN notes reviewed, old records reviewed Mode of arrival: wheelchair Limitations: no limitations - History of Present Illness Initial comments: This is an 83-year-old male DF for evaluation patient with us today for evaluation regards to not feeling well. Patient concerned that he has coronavirus. States he has sore throat runny nose cough congestion some time shortness of breath no chest pain he has denied any fevers his symptoms of been episodic for quite some time and despite antibiotics or not getting better. No travel history patient is not left his house. MD Complaint: generalized weakness, lack of energy -: days(s) Location: generalized Severity: moderate Severity scale (1-10): 5 Quality: tingling Consistency: constant Improves with: none Worsens with: none Context: recent illness Associated Symptoms: denies other symptoms - Related Data Home Medications Medication Instructions Recorded Confirmed Ascorbic Acid [Vitamin C] 1,000 mg PO DAILY 04/03/15 05/19/19 Aspirin EC [Ecotrin Low Dose] 81 mg PO DAILY 04/03/15 05/19/19 Fenofibrate Nanocrystallized 145 mg PO DAILY 04/03/15 05/19/19 [Tricor] amLODIPine [Norvasc] 5 mg PO DAILY 01/29/18 05/19/19 Atorvastatin [Lipitor] 40 mg PO HS 10/30/18 05/19/19 Amiodarone HCl [Pacerone] 200 mg PO DAILY 01/12/19 05/19/19 Cyanocobalamin (Vitamin B-12) 1,000 mcg PO DAILY 01/12/19 05/19/19 [Vitamin B-12] Furosemide [Lasix] 40 mg PO DAILY 01/12/19 05/19/19 Linagliptin [Tradjenta] 5 mg PO DAILY 01/12/19 05/19/19 Metoprolol Tartrate [Lopressor] 25 mg PO BID 04/10/19 05/19/19 Previous Rx's Medication Instructions Recorded Isosorbide Mononitrate ER [Imdur] 30 mg PO DAILY #30 tab.er.24h 01/30/18 Pantoprazole [Protonix] 40 mg PO FRANKLYNKBRENDA #30 tablet. 01/30/18 Magnesium Oxide [Mag-Oxide] 200 mg PO DAILY 3 Days #5 tablet 01/12/19 Allergies Allergy/AdvReac Type Severity Reaction Status Date / Time No Known Allergies Allergy Verified 09/22/19 19:23 Review of Systems ROS Statement: Those systems with pertinent positive or pertinent negative responses have been documented in the HPI. ROS Other: All systems not noted in ROS Statement are negative. 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 Absent: scleral icterus, conjunctival injection, periorbital swelling ENT exam: Present: normal exam, mucous membranes moist Neck exam: Present: normal inspection. Absent: tenderness, meningismus, lymphadenopathy Respiratory exam: Present: normal lung sounds bilaterally. Absent: respiratory distress, wheezes, rales, rhonchi, stridor Cardiovascular Exam: Present: regular rate, normal rhythm, normal heart sounds. Absent: systolic murmur, diastolic murmur, rubs, gallop, clicks GI/Abdominal exam: Present: soft, normal bowel sounds. Absent: distended, te nderness, guarding, rebound, rigid Extremities exam: Present: normal inspection, full ROM, normal capillary refill. Absent: tenderness, pedal edema, joint swelling, calf tenderness Back exam: Present: normal inspection Neurological exam: Present: alert, oriented X3, CN II-XII intact Psychiatric exam: Present: normal affect, normal mood Skin exam: Present: warm, dry, intact, normal color. Absent: rash Course Vital Signs 09/22/19 09/22/19 09/22/19 14:40 15:00 16:40 Temperature 98.2 F Pulse Rate 70 60 Respiratory 18 18 18 Rate Blood Pressure 147/80 155/95 O2 Sat by Pulse 96 97 Oximetry 09/22/19 18:11 Temperature 98.3 F Pulse Rate 78 Respiratory 18 Rate Blood Pressure 150/78 O2 Sat by Pulse 10 L Oximetry - Reevaluation(s) Reevaluation #1: Medical record is reviewed No acute distress Patient is informed of results, questions are answered EKG Findings - EKG Comments: EKG Findings:: EKG shows paced rhythm of 75, CT 392, QRS 100, QTC 419 Medical Decision Making - Medical Decision Making 83 female to the ER for evaluation of multiple specific symptoms. Patient has no recent travel history or sick contacts. - Lab Data Result diagrams: 09/22/19 16:10 09/22/19 16:10 Lab Results 09/22/19 09/22/19 09/22/19 Range/Units 16:10 16:10 16:10 WBC 6.7 (3.8-10.6) k/uL RBC 4.79 (4.30-5.90) m/uL Hgb 15.2 (13.0-17.5) gm/dL Hct 46.8 (39.0-53.0) % MCV 97.7 (80.0-100.0) fL MCH 31.8 (25.0-35.0) pg MCHC 32.6 (31.0-37.0) g/dL RDW 13.9 (11.5-15.5) % Plt Count 150 (150-450) k/uL Neutrophils % 71 % Lymphocytes % 11 % Monocytes % 8 % Eosinophils % 5 % Basophils % 1 % Neutrophils # 4.7 (1.3-7.7) k/uL Lymphocytes # 0.8 L (1.0-4.8) k/uL Monocytes # 0.6 (0-1.0) k/uL Eosinophils # 0.3 (0-0.7) k/uL Basophils # 0.1 (0-0.2) k/uL PT 10.1 (9.0-12.0) sec INR 1.0 (<1.2) APTT 23.1 (22.0-30.0) sec Sodium (137-145) mmol/L Potassium (3.5-5.1) mmol/L Chloride (98-107) mmol/L Carbon Dioxide (22-30) mmol/L Anion Gap mmol/L BUN (9-20) mg/dL Creatinine (0.66-1.25) mg/dL Est GFR (CKD-EPI)AfAm (>60 ml/min/1.73 sqM) Est GFR (CKD-EPI)NonAf (>60 ml/min/1.73 sqM) Glucose (74-99) mg/dL Calcium (8.4-10.2) mg/dL Phosphorus (2.5-4.5) mg/dL Magnesium (1.6-2.3) mg/dL Total Bilirubin (0.2-1.3) mg/dL AST (17-59) U/L ALT (4-49) U/L Alkaline Phosphatase (38-126) U/L Creatine Kinase (55-170) U/L Troponin I (0.000-0.034) ng/mL Total Protein (6.3-8.2) g/dL Albumin (3.5-5.0) g/dL TSH (0.465-4.680) mIU/L Urine Color Yellow Urine Appearance Clear (Clear) Urine pH 5.5 (5.0-8.0) Ur Specific [place] 1.025 (1.001-1.035) Urine Protein 2+ H (Negative) Urine Glucose (UA) 1+ H (Negative) Urine Ketones Negative (Negative) Urine Blood Trace H (Negative) Urine Nitrite Negative (Negative) Urine Bilirubin Negative (Negative) Urine Urobilinogen <2.0 (<2.0) mg/dL Ur Leukocyte Esterase Negative (Negative) Urine RBC 1 (0-5) /hpf Urine WBC 1 (0-5) /hpf Ur Squamous Epith Cells 1 (0-4) /hpf Urine Bacteria Rare H (None) /hpf Hyaline Casts 7 H (0-2) /lpf Urine Mucus Rare H (None) /hpf Coronavirus (PCR) (Not Detectd) 09/22/19 09/22/19 09/22/19 Range/Units 16:10 16:10 16:22 WBC (3.8-10.6) k/uL RBC (4.30-5.90) m/uL Hgb (13.0-17.5) gm/dL Hct (39.0-53.0) % MCV (80.0-100.0) fL MCH (25.0-35.0) pg MCHC (31.0-37.0) g/dL RDW (11.5-15.5) % Plt Count (150-450) k/uL Neutrophils % % Lymphocytes % % Monocytes % % Eosinophils % % Basophils % % Neutrophils # (1.3-7.7) k/uL Lymphocytes # (1.0-4.8) k/uL Monocytes # (0-1.0) k/uL Eosinophils # (0-0.7) k/uL Basophils # (0-0.2) k/uL PT (9.0-12.0) sec INR (<1.2) APTT (22.0-30.0) sec Sodium 140 (137-145) mmol/L Potassium 4.6 (3.5-5.1) mmol/L Chloride 105 (98-107) mmol/L Carbon Dioxide 27 (22-30) mmol/L Anion Gap 8 mmol/L BUN 36 H (9-20) mg/dL Creatinine 1.79 H (0.66-1.25) mg/dL Est GFR (CKD-EPI)AfAm 40 (>60 ml/min/1.73 sqM) Est GFR (CKD-EPI)NonAf 34 (>60 ml/min/1.73 sqM) Glucose 115 H (74-99) mg/dL Calcium 9.6 (8.4-10.2) mg/dL Phosphorus 3.3 (2.5-4.5) mg/dL Magnesium 1.8 (1.6-2.3) mg/dL Total Bilirubin 0.5 (0.2-1.3) mg/dL AST 29 (17-59) U/L ALT 25 (4-49) U/L Alkaline Phosphatase 111 (38-126) U/L Creatine Kinase 63 (55-170) U/L Troponin I <0.012 (0.000-0.034) ng/mL Total Protein 7.7 (6.3-8.2) g/dL Albumin 4.4 (3.5-5.0) g/dL TSH 3.490 (0.465-4.680) mIU/L Urine Color Urine Appearance (Clear) Urine pH (5.0-8.0) Ur Specific [place] (1.001-1.035) Urine Protein (Negative) Urine Glucose (UA) (Negative) Urine Ketones (Negative) Urine Blood (Negative) Urine Nitrite (Negative) Urine Bilirubin (Negative) Urine Urobilinogen (<2.0) mg/dL Ur Leukocyte Esterase (Negative) Urine RBC (0-5) /hpf Urine WBC (0-5) /hpf Ur Squamous Epith Cells (0-4) /hpf Urine Bacteria (None) /hpf Hyaline Casts (0-2) /lpf Urine Mucus (None) /hpf Coronavirus (PCR) Not Detected (Not Detectd) - Radiology Data Radiology results: report reviewed (Chest x-ray is negative for acute disease), image reviewed Disposition Clinical Impression: Weakness Disposition: HOME SELF-CARE Condition: Good Instructions (If sedation given, give patient instructions): Weakness (ED) Is patient prescribed a controlled substance at d/c from ED?: No Referrals: Tyson Rascon DO [Primary Care Provider] - 1-2 days
[2019-09-22 16:30] LABS: Basophils # (A) 0.1 k/uL (0-0.2); Basophils % (A) 1 %; Eosinophils # (A) 0.3 k/uL (0-0.7); Eosinophils % (A) 5 %; HCT 46.8 % (39.0-53.0); HGB 15.2 gm/dL (13.0-17.5); Lymphocytes # (A) 0.8 k/uL (1.0-4.8); Lymphocytes % (A) 11 %; MCH 31.8 pg (25.0-35.0); MCHC 32.6 g/dL (31.0-37.0); MCV 97.7 fL (80.0-100.0); Mean Platelet Volume 7.3; Monocytes # (A) 0.6 k/uL (0-1.0); Monocytes % (A) 8 %; Neutrophils # (A) 4.7 k/uL (1.3-7.7); Neutrophils % (A) 71 %; Platelet Count 150 k/uL (150-450); RBC 4.79 m/uL (4.30-5.90); RDW 13.9 % (11.5-15.5); WBC 6.7 k/uL (3.8-10.6)
[2019-09-22 16:32] LABS: Appearance,Urine Clear (Clear); Bacteria,Urine Rare /hpf; Bilirubin,Urine Negative (Negative); Blood,Urine Trace (Negative); Color,Urine Yellow; Glucose,Urine (UA) 1+ (Negative); Hyaline Casts,Urine 7 /lpf (0-2); Ketones,Urine Negative (Negative); Leukocyte Esterase,Urine Negative (Negative); Mucus,Urine Rare /hpf; Nitrite,Urine Negative (Negative); PH, Urine 5.5 (5.0-8.0); Protein,Urine 2+ (Negative); RBC,Urine 1 /hpf (0-5); Specific Gravity,Urine 1.025 (1.001-1.035); Squamous Epithelial Cell,Urine 1 /hpf (0-4); Urobilinogen,Urine <2.0 mg/dL (<2.0); WBC,Urine 1 /hpf (0-5)
[2019-09-22 16:38] LABS: Albumin 4.4 g/dL (3.5-5.0); Calcium 9.6 mg/dL (8.4-10.2); Magnesium 1.8 mg/dL (1.6-2.3); Phosphorus 3.3 mg/dL (2.5-4.5); Potassium 4.6 mmol/L (3.5-5.1); Total Bilirubin 0.5 mg/dL (0.2-1.3); Total Protein 7.7 g/dL (6.3-8.2)
[2019-09-22 16:40] LABS: Partial Thromboplastin Time 23.1 sec (22.0-30.0); Prothrombin Time 10.1 sec (9.0-12.0)
[2019-09-22 18:12] VITALS: BP 150/78; PULSE 78; TEMP 98.3
== END 2019-09-22 18:12 | disposition home or self-care (01) ==
LOC: EC 14:25
DX: R53.1 Weakness (principal); I10 Essential (primary) hypertension; I25.10 Atherosclerotic heart disease of native coronary artery without angina pectoris; E11.8 Type 2 diabetes mellitus with unspecified complications; E78.5 Hyperlipidemia, unspecified; Z20.828 Contact with and (suspected) exposure to other viral communicable diseases; Z79.899 Other long term (current) drug therapy; Z86.59 Personal history of other mental and behavioral disorders; Z85.038 Personal history of other malignant neoplasm of large intestine; Z95.1 Presence of aortocoronary bypass graft; Z98.890 Other specified postprocedural states; Z98.41 Cataract extraction status, right eye; Z95.0 Presence of cardiac pacemaker
CPT/HCPCS: 36415; 71046; 80053; 81001; 82550; 83735; 84100; 84443; 84484; 85025; 85610; 85730; 87635; 93005; 96360; 99285

== ENCOUNTER 2019-09-22 19:13 | Emergency (ER) | payer BC, MEDICARE, OTHER ==
[2019-09-22 19:23] VITALS: RESP 18
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
[2019-09-22 22:18] LABS: Appearance,Urine Clear (Clear); Bacteria,Urine Rare /hpf; Bilirubin,Urine Negative (Negative); Blood,Urine Trace (Negative); Color,Urine Yellow; Glucose,Urine (UA) Negative (Negative); Granular Casts,Urine 14 /lpf (0); Hyaline Casts,Urine 71 /lpf (0-2); Ketones,Urine Negative (Negative); Leukocyte Esterase,Urine Negative (Negative); Mucus,Urine Rare /hpf; Nitrite,Urine Negative (Negative); PH, Urine 5.5 (5.0-8.0); Protein,Urine 2+ (Negative); RBC,Urine 1 /hpf (0-5); Specific Gravity,Urine 1.021 (1.001-1.035); Squamous Epithelial Cell,Urine 1 /hpf (0-4); Urobilinogen,Urine <2.0 mg/dL (<2.0); WBC,Urine 1 /hpf (0-5)
[2019-09-22 22:57] VITALS: BP 160/100; PULSE 74; TEMP 98.7
== END 2019-09-22 22:57 | disposition home or self-care (01) ==
LOC: EC 19:13
DX: S22.058A Other fracture of T5-T6 vertebra, initial encounter for closed fracture (principal); N28.89 Other specified disorders of kidney and ureter; J32.9 Chronic sinusitis, unspecified; I25.10 Atherosclerotic heart disease of native coronary artery without angina pectoris; E11.9 Type 2 diabetes mellitus without complications; E78.5 Hyperlipidemia, unspecified; I10 Essential (primary) hypertension; Z79.82 Long term (current) use of aspirin; Z79.84 Long term (current) use of oral hypoglycemic drugs; Z79.899 Other long term (current) drug therapy; Z85.038 Personal history of other malignant neoplasm of large intestine; Z90.49 Acquired absence of other specified parts of digestive tract; Z95.1 Presence of aortocoronary bypass graft; V43.53XA Car driver injured in collision with pick-up truck in traffic accident, initial encounter; Y92.410 Unspecified street and highway as the place of occurrence of the external cause
CPT/HCPCS: 71250; 74176; 81001; 93005; 99284

== ENCOUNTER → 2019-11-20 | Outpatient (CLI) | payer MEDICARE ==
[2019-11-20 16:02] LABS: Albumin 4.1 g/dL (3.80-4.90); Albumin/Globulin Ratio 1.78 (1.60-3.17); Anion Gap 9.1 mmol/L (4.00-12.00); BUN/Creat Ratio 14.12 Ratio (12.00-20.00); Calcium 8.7 mg/dL (8.7-10.3); Carbon Dioxide 24.9 mmol/L (21.6-31.8); Chol/HDL Ratio 4.06; Globulin 2.3 g/dL (1.6-3.3); LDL Cholesterol,Calculated 71.2 mg/dL (0.0-131.0); Non-African American GFR(CKD) 36.2 (60.0-200.0); Total Bilirubin 0.8 mg/dL (0.2-1.2); Total Protein 6.4 g/dL (6.2-8.2); VLDL Calculation 35.8 mg/dL (5.00-40.00)
[2019-11-20 18:02] LABS: Hemoglobin A1C 6.8 % (4.0-6.0)
[2019-11-20 19:02] LABS: Urine Creatinine 150.7 mg/dL
== END | disposition home or self-care (01) ==
LOC: LABWHC1 09:13
PROVIDERS: ATTEND Internal Medicine Endocrinology, Diabetes & Metabolism
DX: E11.65 Type 2 diabetes mellitus with hyperglycemia (principal)
CPT/HCPCS: 36415; 80053; 80061; 82043; 82570; 83036; 84443

== ENCOUNTER → 2020-01-22 | Outpatient (CLI) | payer MEDICARE, BC ==
[2020-01-22 07:55] LABS: Basophils # (A) 0.1 k/uL (0-0.2); Basophils % (A) 1 %; Eosinophils # (A) 0.5 k/uL (0-0.7); Eosinophils % (A) 8 %; HCT 41.9 % (39.0-53.0); HGB 13.5 gm/dL (13.0-17.5); Lymphocytes # (A) 0.9 k/uL (1.0-4.8); Lymphocytes % (A) 13 %; MCH 31.5 pg (25.0-35.0); MCHC 32.2 g/dL (31.0-37.0); MCV 97.7 fL (80.0-100.0); Mean Platelet Volume 7.2; Monocytes # (A) 0.6 k/uL (0-1.0); Monocytes % (A) 9 %; Neutrophils # (A) 4.7 k/uL (1.3-7.7); Neutrophils % (A) 67 %; Platelet Count 168 k/uL (150-450); RBC 4.29 m/uL (4.30-5.90); RDW 13.9 % (11.5-15.5)
[2020-01-22 10:37] LABS: African American GFR (CKD) 36.7 (60.0-200.0); Albumin 4.2 g/dL (3.80-4.90); Albumin/Globulin Ratio 1.68 (1.60-3.17); Anion Gap 6.8 mmol/L (4.00-12.00); BUN/Creat Ratio 14.21 Ratio (12.00-20.00); Calcium 9.7 mg/dL (8.7-10.3); Carbon Dioxide 26.2 mmol/L (21.6-31.8); Chol/HDL Ratio 3.91; Globulin 2.5 g/dL (1.6-3.3); LDL Cholesterol,Calculated 60.2 mg/dL (0.0-131.0); Non-African American GFR(CKD) 31.7 (60.0-200.0); Potassium 4.6 mmol/L (3.5-5.5); Total Bilirubin 0.6 mg/dL (0.2-1.2); Total Protein 6.7 g/dL (6.2-8.2); VLDL Calculation 38.8 mg/dL (5.00-40.00)
[2020-01-22 10:43] LABS: T4, Free (Free Thyroxine) 1.2 ng/dL (0.80-1.80)
== END | disposition home or self-care (01) ==
LOC: LABWHC1 07:30
PROVIDERS: ATTEND Internal Medicine Cardiovascular Disease
DX: I25.10 Atherosclerotic heart disease of native coronary artery without angina pectoris (principal)
CPT/HCPCS: 36415; 80053; 80061; 84439; 84443; 85025

== ENCOUNTER → 2020-07-03 | Outpatient (CLI) | payer MEDICARE, BC ==
[2020-07-03 19:25] LABS: Hemoglobin A1C 6.3 % (4.0-6.0)
[2020-07-03 23:30] LABS: Urine Creatinine 115.6 mg/dL
[2020-07-04 00:16] LABS: African American GFR (CKD) 34.5 (60.0-200.0); Albumin 4.7 g/dL (3.80-4.90); Albumin/Globulin Ratio 2.04 (1.60-3.17); Anion Gap 13.5 mmol/L (4.00-12.00); Calcium 9.5 mg/dL (8.7-10.3); Carbon Dioxide 19.5 mmol/L (21.6-31.8); Chol/HDL Ratio 3.78; Globulin 2.3 g/dL (1.6-3.3); LDL Cholesterol,Calculated 67.6 mg/dL (0.0-131.0); Non-African American GFR(CKD) 29.8 (60.0-200.0); Total Bilirubin 0.6 mg/dL (0.3-1.2); VLDL Calculation 32.4 mg/dL (5.00-40.00)
== END | disposition home or self-care (01) ==
LOC: LABWHC1 08:09
PROVIDERS: ATTEND Internal Medicine Endocrinology, Diabetes & Metabolism
DX: E11.65 Type 2 diabetes mellitus with hyperglycemia (principal)
CPT/HCPCS: 36415; 80053; 80061; 82043; 82570; 83036; 84443

== ENCOUNTER → 2020-08-23 | Outpatient (CLI) | payer MEDICARE, BC ==
[2020-08-23 23:26] LABS: HCT 39.5 % (39.6-50.0); HGB 12.8 g/dL (13.0-17.0); MCH 32.7 pg (27.0-32.0); MCHC 32.4 g/dL (32.0-37.0); MCV 100.8 fL (80.0-97.0); Mean Platelet Volume 9.9 fL (9.5-12.2); Platelet Count 168 X 10*3/uL (140-440); RBC 3.92 X 10*6/uL (4.40-5.60); RDW 14.5 % (11.5-14.5); WBC 6.51 X 10*3/uL (4.50-10.00)
[2020-08-24 01:05] LABS: African American GFR (CKD) 32.5 (60.0-200.0); Albumin 4.1 g/dL (3.80-4.90); Albumin/Globulin Ratio 1.71 (1.60-3.17); Anion Gap 7.9 mmol/L (4.00-12.00); BUN/Creat Ratio 22.38 Ratio (12.00-20.00); Calcium 9.4 mg/dL (8.7-10.3); Carbon Dioxide 26.1 mmol/L (21.6-31.8); Globulin 2.4 g/dL (1.6-3.3); Non-African American GFR(CKD) 28.1 (60.0-200.0); Potassium 5.1 mmol/L (3.5-5.5); Total Bilirubin 0.7 mg/dL (0.3-1.2); Total Protein 6.5 g/dL (6.2-8.2)
== END | disposition home or self-care (01) ==
LOC: LABWHC1 16:08
PROVIDERS: ATTEND Internal Medicine Cardiovascular Disease
DX: I10 Essential (primary) hypertension (principal)
CPT/HCPCS: 36415; 80053; 85027

== ENCOUNTER → 2020-09-13 | Outpatient (CLI) | payer MEDICARE, BC ==
--- NOTE | 2020-09-15 18:34 | XR ---
EXAMINATION TYPE: XR cervical spine limited, 4 views DATE OF EXAM: 09/13/2020 Comparison: None Clinical History: 84-year-old male M99.03, M99.01 Findings: No predental space widening or prevertebral soft tissue swelling. There is preserved alignment of the cervical spine on the swimmer's view. Limited odontoid view. Multilevel facet and uncovertebral join t arthropathy, relatively severe on the right. Median sternotomy wires. Left-sided pacemaker generato r. Atherosclerotic calcifications at both carotid bifurcations. Impression: Advanced hypertrophic facet and uncovertebral joint arthropathy, right greater than left. No malalign ment seen.
--- NOTE | 2020-09-15 18:46 | XR ---
EXAMINATION TYPE: XR lumbar spine 2 or 3V DATE OF EXAM: 09/13/2020 Comparison: 05/02/2010 Clinical History: 84-year-old male M99.03, M99.01 Findings: Bridging anterior endplate spondylosis thoracolumbar junction and upper lumbar spine. Incompletely br idging anterior spondylosis throughout the remainder of the lumbar spine. Advanced hypertrophic facet arthropathy mid to lower lumbar spine. There is a grade 2 anterolisthesis at L5-S1 similar prior. Th ere seems to be progression in anterior endplate ridging at this level likely resulting in a fixed gr tere 2 anterolisthesis. Vertebral body heights are preserved and remaining alignment is maintained. Impression: 1. Redemonstrated grade 2 anterolisthesis at L5-S1 likely relating to bilateral L5 pars defects. As c ompared to 2009, there has been the development of bridging anterior plate spondylosis at this level that may result in a fixed spondylolisthesis here now. 2. DISH within the lower thoracic spine and thoracolumbar junction. Incomplete anterior bridging endp late spondylosis throughout the remainder of the lumbar spine. 3. Advanced hypertrophic facet arthropathy mid to lower lumbar spine. 4. No vertebral compression collapse.
== END | disposition home or self-care (01) ==
LOC: RADXRMAIN 11:06
PROVIDERS: ATTEND Chiropractor
DX: M47.812 Spondylosis without myelopathy or radiculopathy, cervical region (principal); M47.816 Spondylosis without myelopathy or radiculopathy, lumbar region; M43.17 Spondylolisthesis, lumbosacral region
CPT/HCPCS: 72040; 72100

== ENCOUNTER 2020-11-15 11:30 | Emergency (ER) | payer MEDICARE, BC ==
[2020-11-15 11:48] VITALS: TEMP 97.5
[2020-11-15] MEDS ORDERED: SODIUM CHLORIDE 0.9% 500 ML 500 ML IV STA (12:14)
--- NOTE | 2020-11-15 12:23 | ED ---
General Adult HPI - General Chief complaint: Abdominal Pain Stated complaint: Nausea, abd pain Source: patient, RN notes reviewed, old records reviewed Mode of arrival: ambulatory Limitations: no limitations - History of Present Illness Initial comments: 85-year-old white male, alert and oriented 4, presents to the emergency room with 1 week of nausea and weakness. Patient denies vomiting states has been using Pepto-Bismol without relief. Patient states yesterday he felt good and was able to cut the grass but then when he came in he says he felt nauseated again very weak. Patient states that the nausea usually comes in the afternoon and cannot relate it to eating food. Patient states that he normally takes Lasix daily and he is only taking it every 2 days because it makes him urinate too much. Patient states that he lost his in April and has been having a lot of stress, family has been not supportive and he feels that just trying to take his belongings. He states he is not sleeping well at night, his mind is racing. Patient denies any chest pain shortness of breath, no fevers. Patient states that his stool today was dark in color but no history of GI bleeding. He denies any hematochezia or hematemesis. He denies any dysuria. Patient states his biggest complaint is the nausea and abdominal discomfort but states it mostly nausea and feels "sick", not pain. Patient has a history of coronary artery disease, diabetes, hypertension, hypercholesterolemia, colon cancer, bowel resection, cholecystectomy, triple bypass with a pacemaker. 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 -: week(s) (1) Radiation: non-radiation Severity scale (1-10): 4 Consistency: constant Improves with: none Worsens with: none Associated Symptoms: nausea/vomiting, weakness Treatments Prior to Arrival: none - Related Data Home Medications Medication Instructions Recorded Confirmed Fenofibrate Nanocrystallized 145 mg PO DAILY 04/03/15 11/15/20 [Tricor] amLODIPine [Norvasc] 5 mg PO DAILY 01/29/18 11/15/20 Atorvastatin [Lipitor] 40 mg PO HS 10/30/18 11/15/20 Amiodarone HCl [Pacerone] 200 mg PO DAILY 01/12/19 11/15/20 ALPRAZolam [Xanax] 0.25 mg PO DAILY PRN 11/15/20 11/15/20 Losartan Potassium 50 mg PO DAILY 11/15/20 11/15/20 Metoprolol Tartrate [Lopressor] 50 mg PO BID 11/15/20 11/15/20 Ondansetron [Zofran] 4 mg PO Q6H PRN 11/15/20 11/15/20 Sodium Bicarbonate Tab 650 mg PO DAILY 11/15/20 11/15/20 Tamsulosin [Flomax] 0.4 mg PO DAILY 11/15/20 11/15/20 Previous Rx's Medication Instructions Recorded Isosorbide Mononitrate ER [Imdur] 30 mg PO DAILY #30 tab.er.24h 01/30/18 Pantoprazole [Protonix] 40 mg PO AC-BRKFST #30 tablet. 01/30/18 Allergies Allergy/AdvReac Type Severity Reaction Status Date / Time No Known Allergies Allergy Verified 11/15/20 11:48 Review of Systems ROS Statement: Those systems with pertinent positive or pertinent negative responses have been documented in the HPI. ROS Other: All systems not noted in ROS Statement are negative. 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 Absent: scleral icterus, conjunctival injection, periorbital swelling ENT exam: Present: normal oropharynx, mucous membranes moist, TM's normal bilaterally, normal external ear exam Neck exam: Present: normal inspection, full ROM. Absent: tenderness, meningismu s, lymphadenopathy, thyromegaly Respiratory exam: Present: normal lung sounds bilaterally. Absent: respiratory distress, wheezes, rales, rhonchi, stridor, chest wall tenderness, accessory muscle use, decreased breath sounds Cardiovascular Exam: Present: regular rate, normal rhythm, normal heart sounds. Absent: systolic murmur, diastolic murmur, rubs, gallop, clicks GI/Abdominal exam: Present: soft, distended, normal bowel sounds. Absent: tenderness, guarding, rebound, rigid, mass, pulsatile mass, hernia Extremities exam: Present: normal inspection, full ROM, normal capillary refill, pedal edema (+1 blle). Absent: tenderness, joint swelling, calf tenderness Back exam: Present: normal inspection, full ROM. Absent: tenderness, CVA tenderness (R), CVA tenderness (L), muscle spasm, paraspinal tenderness, vertebral tenderness, rash noted Neurological exam: Present: alert, oriented X3, CN II-XII intact Expanded Patient oriented to: Present: person, place, time Speech: Present: fluid speech Cerebellar function: Finger to Nose: Normal Motor strength exam: RUE: 5, LUE: 5, RLE: 5, LLE: 5 Eye Response: (4) open spontaneously Motor Response: (6) obeys commands Verbal Response: (5) oriented Elías Total: 15 Psychiatric exam: Present: normal affect, normal mood Skin exam: Present: warm, dry, intact, normal color. Absent: rash, cyanosis, diaphoretic, erythema, petechiae, pallor, mottled Course Vital Signs 11/15/20 11/15/20 11/15/20 11:46 13:27 14:43 Temperature 97.5 F L 97.5 F L Pulse Rate 79 59 L 60 Respiratory 20 18 18 Rate Blood Pressure 138/76 148/78 184/94 O2 Sat by Pulse 97 92 L 92 L Oximetry Medical Decision Making - Medical Decision Making X-ray shows a nonobstructive bowel pattern no obstruction. EKG shows atrial pacemaker with no acute changes compared to August 2019 EKG. labs are unremarkable with a creatinine of 1.81 which is consistent for the patient. There is no evidence of leukocytosis or anemia. Patient denies any hematochezia or hematemesis. Denies fevers, shortness of breath, cough or chest pain. Vital signs are within normal limits heart rate of 61 atrial paced, blood pressure 148/78, oxygen saturation 92%, afebrile 97.5. Chest x-ray shows basilar atelectasis with a 2 cm nodule density in the right lower lung. Patient recommended admission to the hospital for further workup for oxygen saturation 92% and intermittent nausea. patient states he is unable to stay because he has a dog to care for and will return if worsening symptoms. He believes this may be stress related in addition to lack of sleep and will follow-up with Dr. Rascon next week. Patient also directed to continue his Lasix daily as prescribed. Case discussed with Dr. Gunter. - Lab Data Result diagrams: 11/15/20 12:34 11/15/20 12:34 Lab Results 11/15/20 11/15/20 11/15/20 Range/Units 12:34 12:34 12:34 WBC 6.3 (3.8-10.6) k/uL RBC 4.18 L (4.30-5.90) m/uL Hgb 13.3 (13.0-17.5) gm/dL Hct 40.5 (39.0-53.0) % MCV 96.9 (80.0-100.0) fL MCH 31.7 (25.0-35.0) pg MCHC 32.8 (31.0-37.0) g/dL RDW 14.5 (11.5-15.5) % Plt Count 243 (150-450) k/uL MPV 6.9 Neutrophils % 67 % Lymphocytes % 12 % Monocytes % 11 % Eosinophils % 6 % Basophils % 1 % Neutrophils # 4.2 (1.3-7.7) k/uL Lymphocytes # 0.8 L (1.0-4.8) k/uL Monocytes # 0.7 (0-1.0) k/uL Eosinophils # 0.4 (0-0.7) k/uL Basophils # 0.1 (0-0.2) k/uL PT 10.5 (9.0-12.0) sec INR 1.0 (<1.2) APTT 22.5 (22.0-30.0) sec Sodium (137-145) mmol/L Potassium (3.5-5.1) mmol/L Chloride (98-107) mmol/L Carbon Dioxide (22-30) mmol/L Anion Gap mmol/L BUN (9-20) mg/dL Creatinine (0.66-1.25) mg/dL Est GFR (CKD-EPI)AfAm (>60 ml/min/1.73 sqM) Est GFR (CKD-EPI)NonAf (>60 ml/min/1.73 sqM) Glucose (74-99) mg/dL Plasma Lactic Acid Jese (0.7-2.0) mmol/L Calcium (8.4-10.2) mg/dL Magnesium (1.6-2.3) mg/dL Total Bilirubin (0.2-1.3) mg/dL AST (17-59) U/L ALT (4-49) U/L Alkaline Phosphatase (38-126) U/L Troponin I (0.000-0.034) ng/mL Total Protein (6.3-8.2) g/dL Albumin (3.5-5.0) g/dL Amylase (30-110) U/L Lipase (23-300) U/L Urine Color Yellow Urine Appearance Clear (Clear) Urine pH 6.0 (5.0-8.0) Ur Specific [place] 1.020 (1.001-1.035) Urine Protein 2+ H (Negative) Urine Glucose (UA) 2+ H (Negative) Urine Ketones Negative (Negative) Urine Blood Negative (Negative) Urine Nitrite Negative (Negative) Urine Bilirubin Negative (Negative) Urine Urobilinogen <2.0 (<2.0) mg/dL Ur Leukocyte Esterase Negative (Negative) Urine RBC <1 (0-5) /hpf Urine WBC 2 (0-5) /hpf Ur Squamous Epith Cells <1 (0-4) /hpf Hyaline Casts 17 H (0-2) /lpf Granular Casts 3 (0) /lpf Urine Mucus Rare H (None) /hpf 11/15/20 11/15/20 11/15/20 Range/Units 12:34 12:34 12:34 WBC (3.8-10.6) k/uL RBC (4.30-5.90) m/uL Hgb (13.0-17.5) gm/dL Hct (39.0-53.0) % MCV (80.0-100.0) fL MCH (25.0-35.0) pg MCHC (31.0-37.0) g/dL RDW (11.5-15.5) % Plt Count (150-450) k/uL MPV Neutrophils % % Lymphocytes % % Monocytes % % Eosinophils % % Basophils % % Neutrophils # (1.3-7.7) k/uL Lymphocytes # (1.0-4.8) k/uL Monocytes # (0-1.0) k/uL Eosinophils # (0-0.7) k/uL Basophils # (0-0.2) k/uL PT (9.0-12.0) sec INR (<1.2) APTT (22.0-30.0) sec Sodium 140 (137-145) mmol/L Potassium 4.6 (3.5-5.1) mmol/L Chloride 104 (98-107) mmol/L Carbon Dioxide 28 (22-30) mmol/L Anion Gap 8 mmol/L BUN 29 H (9-20) mg/dL Creatinine 1.81 H (0.66-1.25) mg/dL Est GFR (CKD-EPI)AfAm 39 (>60 ml/min/1.73 sqM) Est GFR (CKD-EPI)NonAf 33 (>60 ml/min/1.73 sqM) Glucose 113 H (74-99) mg/dL Plasma Lactic Acid Jese 1.5 (0.7-2.0) mmol/L Calcium 9.5 (8.4-10.2) mg/dL Magnesium 1.8 (1.6-2.3) mg/dL Total Bilirubin 0.5 (0.2-1.3) mg/dL AST 34 (17-59) U/L ALT 21 (4-49) U/L Alkaline Phosphatase 102 (38-126) U/L Troponin I <0.012 (0.000-0.034) ng/mL Total Protein 6.7 (6.3-8.2) g/dL Albumin 3.9 (3.5-5.0) g/dL Amylase 65 (30-110) U/L Lipase 68 (23-300) U/L Urine Color Urine Appearance (Clear) Urine pH (5.0-8.0) Ur Specific [place] (1.001-1.035) Urine Protein (Negative) Urine Glucose (UA) (Negative) Urine Ketones (Negative) Urine Blood (Negative) Urine Nitrite (Negative) Urine Bilirubin (Negative) Urine Urobilinogen (<2.0) mg/dL Ur Leukocyte Esterase (Negative) Urine RBC (0-5) /hpf Urine WBC (0-5) /hpf Ur Squamous Epith Cells (0-4) /hpf Hyaline Casts (0-2) /lpf Granular Casts (0) /lpf Urine Mucus (None) /hpf Disposition Clinical Impression: Nausea Disposition: HOME SELF-CARE Condition: Fair Instructions (If sedation given, give patient instructions): Acute Nausea and Vomiting (ED) Additional Instructions: Continue taking her Lasix daily as prescribed. Follow-up with Dr. Rascon this week. Return to the emergency room if worsening symptoms. Is patient prescribed a controlled substance at d/c from ED?: No Referrals: Tyson Rascon DO [Primary Care Provider] - 1-2 days Time of Disposition: 15:00
--- NOTE | 2020-11-15 12:49 | XR ---
EXAMINATION TYPE: XR KUB DATE OF EXAM: 11/15/2020 12:42 PM CLINICAL HISTORY: Abdominal pain TECHNIQUE: Single supine KUB image of the abdomen is obtained. COMPARISON: None. FINDINGS: Scattered gas is seen in non-distended small bowel loops. Gas and fecal material is seen in non-distended colon. There is no visceromegaly, pneumoperitoneum, or abnormal calcification apprecia rajni. Postoperative changes overlie the abdomen and pelvis. IMPRESSION: Overall nonobstructive bowel gas pattern.
[2020-11-15 12:57] LABS: Basophils # (A) 0.1 k/uL (0-0.2); Basophils % (A) 1 %; Eosinophils # (A) 0.4 k/uL (0-0.7); Eosinophils % (A) 6 %; HCT 40.5 % (39.0-53.0); HGB 13.3 gm/dL (13.0-17.5); Lymphocytes # (A) 0.8 k/uL (1.0-4.8); Lymphocytes % (A) 12 %; MCH 31.7 pg (25.0-35.0); MCHC 32.8 g/dL (31.0-37.0); MCV 96.9 fL (80.0-100.0); Mean Platelet Volume 6.9; Monocytes # (A) 0.7 k/uL (0-1.0); Monocytes % (A) 11 %; Neutrophils # (A) 4.2 k/uL (1.3-7.7); Neutrophils % (A) 67 %; Platelet Count 243 k/uL (150-450); RBC 4.18 m/uL (4.30-5.90); RDW 14.5 % (11.5-15.5); WBC 6.3 k/uL (3.8-10.6)
[2020-11-15 12:59] LABS: Albumin 3.9 g/dL (3.5-5.0); Calcium 9.5 mg/dL (8.4-10.2); Magnesium 1.8 mg/dL (1.6-2.3); Potassium 4.6 mmol/L (3.5-5.1); Total Bilirubin 0.5 mg/dL (0.2-1.3); Total Protein 6.7 g/dL (6.3-8.2)
[2020-11-15 13:03] LABS: Partial Thromboplastin Time 22.5 sec (22.0-30.0); Prothrombin Time 10.5 sec (9.0-12.0)
[2020-11-15 13:20] LABS: Appearance,Urine Clear (Clear); Bilirubin,Urine Negative (Negative); Blood,Urine Negative (Negative); Color,Urine Yellow; Glucose,Urine (UA) 2+ (Negative); Granular Casts,Urine 3 /lpf (0); Hyaline Casts,Urine 17 /lpf (0-2); Ketones,Urine Negative (Negative); Leukocyte Esterase,Urine Negative (Negative); Mucus,Urine Rare /hpf; Nitrite,Urine Negative (Negative); Protein,Urine 2+ (Negative); RBC,Urine <1 /hpf (0-5); Squamous Epithelial Cell,Urine <1 /hpf (0-4); Urobilinogen,Urine <2.0 mg/dL (<2.0); WBC,Urine 2 /hpf (0-5)
[2020-11-15 13:28] VITALS: RESP 18
--- NOTE | 2020-11-15 14:42 | XR ---
EXAMINATION TYPE: XR chest 2V DATE OF EXAM: 11/15/2020 COMPARISON: 09/22/2019 HISTORY: weakness TECHNIQUE: Frontal and lateral views of the chest are obtained. FINDINGS: In the right lung base, there is a possible 2 cm nodular density. Bibasilar atelectasis is seen. AICD is present. Sternotomy changes are noted. Cardiac silhouette is unchanged in size. IMPRESSION: In the right lung base, there is a possible 2 cm nodular density; CT can be considered f or further evaluation if clinically warranted. Bibasilar atelectasis is seen.
[2020-11-15 14:44] VITALS: BP 184/94; PULSE 60
== END 2020-11-15 15:10 | disposition home or self-care (01) ==
LOC: EC 11:30
DX: R11.0 Nausea (principal); E11.36 Type 2 diabetes mellitus with diabetic cataract; E78.00 Pure hypercholesterolemia, unspecified; F32.9 Major depressive disorder, single episode, unspecified; F41.9 Anxiety disorder, unspecified; I10 Essential (primary) hypertension; I25.10 Atherosclerotic heart disease of native coronary artery without angina pectoris; Z95.0 Presence of cardiac pacemaker; Z90.49 Acquired absence of other specified parts of digestive tract; Z95.1 Presence of aortocoronary bypass graft; Z85.038 Personal history of other malignant neoplasm of large intestine
CPT/HCPCS: 36415; 71046; 74018; 80053; 81001; 82150; 83605; 83690; 83735; 84484; 85025; 85610; 85730; 93005; 96360; 99285

== ENCOUNTER → 2020-12-25 | Outpatient (CLI) | payer MEDICARE, BC ==
[2020-12-25 23:05] LABS: T4, Free (Free Thyroxine) 1.4 ng/dL (0.80-1.80)
[2020-12-26 00:23] LABS: African American GFR (CKD) 41.7 (60.0-200.0); Albumin 4.1 g/dL (3.80-4.90); Albumin/Globulin Ratio 1.52 (1.60-3.17); BUN/Creat Ratio 14.71 Ratio (12.00-20.00); Calcium 9.2 mg/dL (8.7-10.3); Globulin 2.7 g/dL (1.6-3.3); Potassium 4.1 mmol/L (3.5-5.5); Total Bilirubin 0.7 mg/dL (0.3-1.2); Total Protein 6.8 g/dL (6.2-8.2)
== END | disposition home or self-care (01) ==
LOC: LABWHC1 08:42
PROVIDERS: ATTEND Internal Medicine Cardiovascular Disease
DX: I25.10 Atherosclerotic heart disease of native coronary artery without angina pectoris (principal); R53.83 Other fatigue; Z79.84 Long term (current) use of oral hypoglycemic drugs
CPT/HCPCS: 36415; 80053; 84439; 84443

== ENCOUNTER → 2020-12-25 | Outpatient (CLI) | payer MEDICARE, BC ==
--- NOTE | 2020-12-25 15:15 | CT ---
EXAMINATION TYPE: CT chest wo con DATE OF EXAM: 12/25/2020 COMPARISON: 09/22/2019, 02/01/2014 HISTORY: Lung nodules. CT DLP: 547.7 mGycm. Automated Exposure Control for Dose Reduction was Utilized. TECHNIQUE: CT scan of the thorax is performed without IV contrast. FINDINGS: LUNGS: This somewhat nodular appearing area suspected consolidation within the left lower lobe measur ing 2.1 x 1.4 cm. Cyst appears new from the prior exam. Additional areas of subsegmental consolidatio n are noted posteriorly likely in the basis of atelectasis. 8 mm nodule along the left lung apex may be associated with the first rib. No pleural effusion or pneumothorax.. MEDIASTINUM: Lack of IV contrast is noted to limit evaluation for mediastinal and especially hilar ad enopathy. There are no definitive greater than 1 cm hilar or mediastinal lymph nodes. Heart size is p rominent there is postsurgical change of coronary artery calcification. Sternotomy wires are noted. C ardiac device is seen. Atherosclerotic change aorta.. OTHER: Hypertrophic and degenerative change of the spine. Anatomy changes are noted. IMPRESSION: 1. There is a new 2.1 x 1.4 cm lobulated density along the left lower lobe lung base. Favor inflammat ory change or neoplastic disease recommend a short-term 3 month follow-up CT scan to confirm stabilit y and resolution, otherwise consider PET scan 2. Stable cardiomegaly with basilar atelectasis 8mm nodule adjacent to the anterior margin the left f irst rib within the left upper lobe not seen with certainty on the prior exam. It was present on the exam of 02/01/2014 therefore likely related to the first rib. 3. Postsurgical changes
== END | disposition home or self-care (01) ==
LOC: RADCTMAIN 14:27
PROVIDERS: ATTEND Family Medicine
DX: R91.8 Other nonspecific abnormal finding of lung field (principal); J98.11 Atelectasis
CPT/HCPCS: 71250

== ENCOUNTER 2020-12-27 09:35 | Emergency (ER) | payer MEDICARE, BC ==
[2020-12-27 09:39] VITALS: TEMP 97.7
[2020-12-27] MEDS ORDERED: SODIUM CHLORIDE 0.9% 500 ML 500 ML IV STA (10:16)
--- NOTE | 2020-12-27 10:18 | ED ---
General Adult HPI - General Chief complaint: Upper Respiratory Infection Stated complaint: SOB/Stuffy Nose/Fall Time Seen by Provider: 12/27/20 09:41 Source: patient, RN notes reviewed Mode of arrival: ambulatory Limitations: no limitations - History of Present Illness Initial comments: 85-year-old male presents to the emergency room for a chief complaint of not feeling well. Patient reports that he has had a cough for 2 weeks. States there is mucus draining from his nose down his throat and into his lungs. States it is making him more tired than normal. Patient reports he just had a CAT scan done 2 days ago but was not tested for Covid. Patient denies fevers at home.Patient has no other complaints at this time including shortness of breath, chest pain, abdominal pain, nausea or vomiting, headache, or visual changes. - Related Data Home Medications Medication Instructions Recorded Confirmed Fenofibrate Nanocrystallized 145 mg PO DAILY 04/03/15 12/27/20 [Tricor] Atorvastatin [Lipitor] 40 mg PO HS 10/30/18 12/27/20 Losartan Potassium 50 mg PO DAILY 11/15/20 12/27/20 Sodium Bicarbonate Tab 650 mg PO DAILY 11/15/20 12/27/20 Amiodarone [Cordarone] 200 mg PO DAILY 12/27/20 12/27/20 Ascorbic Acid [Vitamin C] 500 mg PO DAILY 12/27/20 12/27/20 Aspirin EC [Ecotrin Low Dose] 81 mg PO DAILY 12/27/20 12/27/20 Cyanocobalamin [Vitamin B-12] 500 mcg PO DAILY 12/27/20 12/27/20 Metoprolol Succinate (ER) [Toprol 25 mg PO BID 12/27/20 12/27/20 Xl] Repaglinide [Prandin] 0.5 mg PO BID 12/27/20 12/27/20 Tamsulosin HCl [Flomax] 0.4 mg PO DAILY 12/27/20 12/27/20 Previous Rx's Medication Instructions Recorded Isosorbide Mononitrate ER [Imdur] 30 mg PO DAILY #30 tab.er.24h 01/30/18 Pantoprazole [Protonix] 40 mg PO RENA #30 josiane. 01/30/18 Azithromycin [Zithromax Z-pack (6 250 mg PO DIRECTED #6 tab 12/27/20 tabs)] Benzonatate [Tessalon Perles] 200 mg PO Q8H PRN #15 capsule 12/27/20 Allergies Allergy/AdvReac Type Severity Reaction Status Date / Time No Known Allergies Allergy Verified 12/27/20 09:39 Review of Systems ROS Statement: Those systems with pertinent positive or pertinent negative responses have been documented in the HPI. ROS Other: All systems not noted in ROS Statement are negative. 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 Absent: scleral icterus, conjunctival injection, periorbital swelling ENT exam: Present: normal exam, mucous membranes moist Neck exam: Present: normal inspection, full ROM. Absent: tenderness, meningismus, lymphadenopathy Respiratory exam: Present: normal lung sounds bilaterally. Absent: respiratory distress, wheezes, rales, rhonchi, stridor Cardiovascular Exam: Present: regular rate, normal rhythm, normal heart sounds. Absent: systolic murmur, diastolic murmur, rubs, gallop, clicks GI/Abdominal exam: Present: soft, normal bowel sounds. Absent: distended, tenderness, guarding, rebound, rigid Course Vital Signs 12/27/20 12/27/20 12/27/20 09:36 10:10 11:39 Temperature 97.7 F Pulse Rate 82 67 Respiratory 22 18 Rate Blood Pressure 215/107 155/96 169/88 O2 Sat by Pulse 97 93 L Oximetry 12/27/20 12:34 Temperature Pulse Rate 60 Respiratory 18 Rate Blood Pressure 186/95 O2 Sat by Pulse 94 L Oximetry Medical Decision Making - Medical Decision Making Vitals are stable. Patient is well-appearing. Patient presents for not feeling well. Patient has had congestion with drainage down his throat as well as a cough for 2 weeks. He has also had fatigue. Patient does have a slight cough noted. CBC CMP unremarkable. Chronic kidney disease noted. Urinalysis is negative. Coronavirus is not detected. Chest x-ray was obtained today which shows no evidence for acute pulmonary disease. CT from 2 days ago outpatient was reviewed. This did show a new 2 cm lobulated density along the left lower lobe. Inflammatory change versus neoplastic disease. There is also basal or atelectasis. Given patient's symptoms of cough as well as possible inflammatory change patient was started on antibiotics. Patient is supposed to follow back up with Dr. Dr. Gentile for CAT scan results, the office did send over his note from his office visit 3 days ago. Patient will return here for any worsening symptoms. - Lab Data Result diagrams: 12/27/20 11:38 12/27/20 10:41 Lab Results 12/27/20 12/27/20 12/27/20 Range/Units 10:41 10:41 10:41 WBC (3.8-10.6) k/uL RBC (4.30-5.90) m/uL Hgb (13.0-17.5) gm/dL Hct (39.0-53.0) % MCV (80.0-100.0) fL MCH (25.0-35.0) pg MCHC (31.0-37.0) g/dL RDW (11.5-15.5) % Plt Count (150-450) k/uL MPV Neutrophils % % Lymphocytes % % Monocytes % % Eosinophils % % Basophils % % Neutrophils # (1.3-7.7) k/uL Lymphocytes # (1.0-4.8) k/uL Monocytes # (0-1.0) k/uL Eosinophils # (0-0.7) k/uL Basophils # (0-0.2) k/uL PT (9.0-12.0) sec INR (<1.2) APTT (22.0-30.0) sec Sodium 138 (137-145) mmol/L Potassium 4.8 (3.5-5.1) mmol/L Chloride 106 (98-107) mmol/L Carbon Dioxide 21 L (22-30) mmol/L Anion Gap 11 mmol/L BUN 34 H (9-20) mg/dL Creatinine 1.59 H (0.66-1.25) mg/dL Est GFR (CKD-EPI)AfAm 45 (>60 ml/min/1.73 sqM) Est GFR (CKD-EPI)NonAf 39 (>60 ml/min/1.73 sqM) Glucose 153 H (74-99) mg/dL Plasma Lactic Acid Jese 1.6 (0.7-2.0) mmol/L Calcium 9.6 (8.4-10.2) mg/dL Magnesium 1.6 (1.6-2.3) mg/dL Total Bilirubin 0.9 (0.2-1.3) mg/dL AST 39 (17-59) U/L ALT 24 (4-49) U/L Alkaline Phosphatase 110 (38-126) U/L Troponin I (0.000-0.034) ng/mL Total Protein 7.1 (6.3-8.2) g/dL Albumin 4.1 (3.5-5.0) g/dL Urine Color Light Yellow Urine Appearance Clear (Clear) Urine pH 5.5 (5.0-8.0) Ur Specific [place] 1.012 (1.001-1.035) Urine Protein 1+ H (Negative) Urine Glucose (UA) Trace H (Negative) Urine Ketones Negative (Negative) Urine Blood Negative (Negative) Urine Nitrite Negative (Negative) Urine Bilirubin Negative (Negative) Urine Urobilinogen <2.0 (<2.0) mg/dL Ur Leukocyte Esterase Negative (Negative) Urine WBC 1 (0-5) /hpf Hyaline Casts 1 (0-2) /lpf Urine Mucus Rare H (None) /hpf Coronavirus (PCR) (Not Detectd) 12/27/20 12/27/20 12/27/20 Range/Units 10:41 10:41 11:20 WBC (3.8-10.6) k/uL RBC (4.30-5.90) m/uL Hgb (13.0-17.5) gm/dL Hct (39.0-53.0) % MCV (80.0-100.0) fL MCH (25.0-35.0) pg MCHC (31.0-37.0) g/dL RDW (11.5-15.5) % Plt Count (150-450) k/uL MPV Neutrophils % % Lymphocytes % % Monocytes % % Eosinophils % % Basophils % % Neutrophils # (1.3-7.7) k/uL Lymphocytes # (1.0-4.8) k/uL Monocytes # (0-1.0) k/uL Eosinophils # (0-0.7) k/uL Basophils # (0-0.2) k/uL PT 10.8 (9.0-12.0) sec INR 1.0 (<1.2) APTT 22.8 (22.0-30.0) sec Sodium (137-145) mmol/L Potassium (3.5-5.1) mmol/L Chloride (98-107) mmol/L Carbon Dioxide (22-30) mmol/L Anion Gap mmol/L BUN (9-20) mg/dL Creatinine (0.66-1.25) mg/dL Est GFR (CKD-EPI)AfAm (>60 ml/min/1.73 sqM) Est GFR (CKD-EPI)NonAf (>60 ml/min/1.73 sqM) Glucose (74-99) mg/dL Plasma Lactic Acid Jese (0.7-2.0) mmol/L Calcium (8.4-10.2) mg/dL Magnesium (1.6-2.3) mg/dL Total Bilirubin (0.2-1.3) mg/dL AST (17-59) U/L ALT (4-49) U/L Alkaline Phosphatase (38-126) U/L Troponin I <0.012 (0.000-0.034) ng/mL Total Protein (6.3-8.2) g/dL Albumin (3.5-5.0) g/dL Urine Color Urine Appearance (Clear) Urine pH (5.0-8.0) Ur Specific [place] (1.001-1.035) Urine Protein (Negative) Urine Glucose (UA) (Negative) Urine Ketones (Negative) Urine Blood (Negative) Urine Nitrite (Negative) Urine Bilirubin (Negative) Urine Urobilinogen (<2.0) mg/dL Ur Leukocyte Esterase (Negative) Urine WBC (0-5) /hpf Hyaline Casts (0-2) /lpf Urine Mucus (None) /hpf Coronavirus (PCR) Not Detected (Not Detectd) 12/27/20 Range/Units 11:38 WBC 5.4 (3.8-10.6) k/uL RBC 4.09 L (4.30-5.90) m/uL Hgb 13.7 (13.0-17.5) gm/dL Hct 39.9 (39.0-53.0) % MCV 97.7 (80.0-100.0) fL MCH 33.5 (25.0-35.0) pg MCHC 34.3 (31.0-37.0) g/dL RDW 14.4 (11.5-15.5) % Plt Count 159 (150-450) k/uL MPV 7.3 Neutrophils % 67 % Lymphocytes % 13 % Monocytes % 9 % Eosinophils % 6 % Basophils % 1 % Neutrophils # 3.6 (1.3-7.7) k/uL Lymphocytes # 0.7 L (1.0-4.8) k/uL Monocytes # 0.5 (0-1.0) k/uL Eosinophils # 0.3 (0-0.7) k/uL Basophils # 0.0 (0-0.2) k/uL PT (9.0-12.0) sec INR (<1.2) APTT (22.0-30.0) sec Sodium (137-145) mmol/L Potassium (3.5-5.1) mmol/L Chloride (98-107) mmol/L Carbon Dioxide (22-30) mmol/L Anion Gap mmol/L BUN (9-20) mg/dL Creatinine (0.66-1.25) mg/dL Est GFR (CKD-EPI)AfAm (>60 ml/min/1.73 sqM) Est GFR (CKD-EPI)NonAf (>60 ml/min/1.73 sqM) Glucose (74-99) mg/dL Plasma Lactic Acid Jese (0.7-2.0) mmol/L Calcium (8.4-10.2) mg/dL Magnesium (1.6-2.3) mg/dL Total Bilirubin (0.2-1.3) mg/dL AST (17-59) U/L ALT (4-49) U/L Alkaline Phosphatase (38-126) U/L Troponin I (0.000-0.034) ng/mL Total Protein (6.3-8.2) g/dL Albumin (3.5-5.0) g/dL Urine Color Urine Appearance (Clear) Urine pH (5.0-8.0) Ur Specific [place] (1.001-1.035) Urine Protein (Negative) Urine Glucose (UA) (Negative) Urine Ketones (Negative) Urine Blood (Negative) Urine Nitrite (Negative) Urine Bilirubin (Negative) Urine Urobilinogen (<2.0) mg/dL Ur Leukocyte Esterase (Negative) Urine WBC (0-5) /hpf Hyaline Casts (0-2) /lpf Urine Mucus (None) /hpf Coronavirus (PCR) (Not Detectd) Disposition Clinical Impression: Cough Disposition: HOME SELF-CARE Condition: Good Instructions (If sedation given, give patient instructions): Pneumonia (ED) Additional Instructions: Please take antibiotic as directed. Drink plenty of fluids. Follow-up with your doctor and Dr Rojo in one to 2 days. Return to the emergency room for any worsening symptoms. Prescriptions: Benzonatate [Tessalon Perles] 200 mg PO Q8H PRN #15 capsule PRN Reason: Cough Azithromycin [Zithromax Z-pack (6 tabs)] 250 mg PO DIRECTED #6 tab Is patient prescribed a controlled substance at d/c from ED?: No Referrals: Tyson Rascon DO [Primary Care Provider] - 1-2 days Time of Disposition: 13:23
[2020-12-27 10:48] LABS: Appearance,Urine Clear (Clear); Bilirubin,Urine Negative (Negative); Blood,Urine Negative (Negative); Color,Urine Light Yellow; Glucose,Urine (UA) Trace (Negative); Hyaline Casts,Urine 1 /lpf (0-2); Ketones,Urine Negative (Negative); Leukocyte Esterase,Urine Negative (Negative); Mucus,Urine Rare /hpf; Nitrite,Urine Negative (Negative); PH, Urine 5.5 (5.0-8.0); Protein,Urine 1+ (Negative); Specific Gravity,Urine 1.012 (1.001-1.035); Urobilinogen,Urine <2.0 mg/dL (<2.0); WBC,Urine 1 /hpf (0-5)
[2020-12-27 10:56] LABS: Albumin 4.1 g/dL (3.5-5.0); Calcium 9.6 mg/dL (8.4-10.2); Total Bilirubin 0.9 mg/dL (0.2-1.3); Total Protein 7.1 g/dL (6.3-8.2)
[2020-12-27 11:03] LABS: Magnesium 1.6 mg/dL (1.6-2.3); Potassium 4.8 mmol/L (3.5-5.1)
--- NOTE | 2020-12-27 11:16 | XR ---
EXAMINATION TYPE: XR chest 2V DATE OF EXAM: 12/27/2020 COMPARISON: 11/15/2020 HISTORY: Shortness of breath TECHNIQUE: Frontal and lateral views of the chest are obtained. FINDINGS: Scattered senescent parenchymal changes noted. Hyperinflation compatible with COPD. No evidence for infiltrate. No evidence for atelectasis. Heart size is stable. Dual-lead pacer device is in place. Mediastinal structures are stable and grossly unremarkable. No evidence for hilar prominence. Degenerative changes dorsal spine. IMPRESSION: 1. No evidence for acute pulmonary disease.
[2020-12-27 11:40] VITALS: RESP 18
[2020-12-27 12:24] LABS: Basophils % (A) 1 %; Eosinophils # (A) 0.3 k/uL (0-0.7); Eosinophils % (A) 6 %; HCT 39.9 % (39.0-53.0); HGB 13.7 gm/dL (13.0-17.5); Lymphocytes # (A) 0.7 k/uL (1.0-4.8); Lymphocytes % (A) 13 %; MCH 33.5 pg (25.0-35.0); MCHC 34.3 g/dL (31.0-37.0); MCV 97.7 fL (80.0-100.0); Mean Platelet Volume 7.3; Monocytes # (A) 0.5 k/uL (0-1.0); Monocytes % (A) 9 %; Neutrophils # (A) 3.6 k/uL (1.3-7.7); Neutrophils % (A) 67 %; Platelet Count 159 k/uL (150-450); RBC 4.09 m/uL (4.30-5.90); RDW 14.4 % (11.5-15.5); WBC 5.4 k/uL (3.8-10.6)
[2020-12-27 12:50] LABS: Partial Thromboplastin Time 22.8 sec (22.0-30.0); Prothrombin Time 10.8 sec (9.0-12.0)
[2020-12-27] MEDS ORDERED: cefTRIAXone IN SWFI 1,000 MG/10 ML SYRINGE IVP STA (13:22)
[2020-12-27 13:48] VITALS: BP 183/99; PULSE 68
== END 2020-12-27 13:50 | disposition home or self-care (01) ==
LOC: EC 09:35
DX: R05 Cough (principal); I12.9 Hypertensive chronic kidney disease with stage 1 through stage 4 chronic kidney disease, or unspecified chronic kidney disease; E11.22 Type 2 diabetes mellitus with diabetic chronic kidney disease; N18.9 Chronic kidney disease, unspecified; E78.5 Hyperlipidemia, unspecified; I25.10 Atherosclerotic heart disease of native coronary artery without angina pectoris; F32.9 Major depressive disorder, single episode, unspecified; F41.9 Anxiety disorder, unspecified; Z85.038 Personal history of other malignant neoplasm of large intestine; Z20.822 Contact with and (suspected) exposure to COVID-19; Z79.82 Long term (current) use of aspirin; Z79.899 Other long term (current) drug therapy; Z95.0 Presence of cardiac pacemaker; Z95.1 Presence of aortocoronary bypass graft
CPT/HCPCS: 36415; 93005; 80053; 83605; 83735; 84484; 85025; 85610; 85730; 81001; 87635; 71046; 99284; 96374; J0696

== ENCOUNTER 2020-12-29 09:55 | Inpatient (IN) | payer MEDICARE, BC ==
[2020-12-29] MEDS ORDERED: cefTRIAXone IN SWFI 1,000 MG/10 ML SYRINGE IVP STA (10:20)
[2020-12-29] MEDS ORDERED: SODIUM CHLORIDE 0.9% 1,000 ML IV STA (10:20)
--- NOTE | 2020-12-29 10:32 | ED ---
Weakness HPI - General Chief complaint: Weakness Stated complaint: Revisit/Pneumonia/Sore Throat Time Seen by Provider: 12/29/20 10:06 Source: patient Mode of arrival: wheelchair Limitations: no limitations - History of Present Illness Initial comments: 85-year-old male presents to emergency Department with chief complaint of weakness and sore throat. Patient reports she was in the emergency department 2 days ago for sore throat and cough. States she was found to have a pneumonia and was started on azithromycin. Patient reports a productive cough with yellow sputum production. He also reports a sore throat, particularly in the morning that gradually resolved throughout the day. Denies significant otalgia. Does report some chills but denies any fevers at home. He does report shortness of breath but denies any chest pain. Fully vaccinated for Covid. Denies loss of smell or taste. - Related Data Home Medications Medication Instructions Recorded Confirmed Fenofibrate Nanocrystallized 145 mg PO DAILY 04/03/15 12/29/20 [Tricor] Atorvastatin [Lipitor] 40 mg PO HS 10/30/18 12/29/20 Losartan Potassium 50 mg PO DAILY 11/15/20 12/29/20 Sodium Bicarbonate Tab 650 mg PO DAILY 11/15/20 12/29/20 Amiodarone [Cordarone] 200 mg PO DAILY 12/27/20 12/29/20 Ascorbic Acid [Vitamin C] 500 mg PO DAILY 12/27/20 12/29/20 Aspirin EC [Ecotrin Low Dose] 81 mg PO DAILY 12/27/20 12/29/20 Cyanocobalamin [Vitamin B-12] 500 mcg PO DAILY 12/27/20 12/29/20 Metoprolol Succinate (ER) [Toprol 25 mg PO BID 12/27/20 12/29/20 Xl] Repaglinide [Prandin] 0.5 mg PO BID 12/27/20 12/29/20 Tamsulosin HCl [Flomax] 0.4 mg PO DAILY 12/27/20 12/29/20 Azithromycin [Zithromax Z-pack (6 See Taper PO DAILY 12/29/20 12/29/20 tabs)] Previous Rx's Medication Instructions Recorded Isosorbide Mononitrate ER [Imdur] 30 mg PO DAILY #30 tab.er.24h 01/30/18 Pantoprazole [Protonix] 40 mg PO AC-BRKFST #30 tablet. 01/30/18 Benzonatate [Tessalon Perles] 200 mg PO Q8H PRN #15 capsule 12/27/20 Allergies Allergy/AdvReac Type Severity Reaction Status Date / Time No Known Allergies Allergy Verified 12/29/20 10:48 Review of Systems ROS Statement: Those systems with pertinent positive or pertinent negative responses have been documented in the HPI. ROS Other: All systems not noted in ROS Statement are negative. 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 Past Anesthesia/Blood Transfusion Reactions: No Reported Reaction Type of Cardiac Device: AICD Device Placement Date:: 11/16 Past Psychological History: Anxiety, Depression Smoking Status: Never smoker Past Alcohol Use History: None Reported Past Drug Use History: None Reported - Past Family History Mother Family Medical History: No Reported History General Exam Limitations: no limitations General appearance: alert, in no apparent distress, obese Head exam: Present: atraumatic, normocephalic, normal inspection Eye exam: Present: normal appearance, PERRL, EOMI Pupils: Present: normal accommodation ENT exam: Present: normal exam, normal oropharynx (No signs of pharyngeal erythema, tonsillar enlargement or exudates.), mucous membranes moist, TM's normal bilaterally, normal external ear exam Neck exam: Present: normal inspection, full ROM. Absent: tenderness, lymphadenopathy Respiratory exam: Present: normal lung sounds bilaterally. Absent: respiratory distress, wheezes, rales, rhonchi, stridor Cardiovascular Exam: Present: regular rate, normal rhythm, normal heart sounds. Absent: systolic murmur, diastolic murmur GI/Abdominal exam: Present: soft. Absent: distended, tenderness, guarding, rebound Extremities exam: Present: normal inspection, full ROM, normal capillary refill. Absent: tenderness, pedal edema, joint swelling Back exam: Present: normal inspection, full ROM. Absent: tenderness, CVA tenderness (R), CVA tenderness (L) Neurological exam: Present: alert, oriented X3, CN II-XII intact, normal gait Psychiatric exam: Present: normal affect, normal mood Skin exam: Present: warm, dry, intact, normal color Course Vital Signs 12/29/20 12/29/20 12/29/20 09:57 10:20 11:09 Temperature 97.6 F 97.3 F L Pulse Rate 65 60 Respiratory 20 18 18 Rate Blood Pressure 134/72 137/78 O2 Sat by Pulse 94 L 96 Oximetry EKG Findings - EKG Comments: EKG Findings:: Paced rhythm. Ventricular rate 75, IL 338, QRS 100, QTC 428. Medical Decision Making - Medical Decision Making 85-year-old male presents to emergency Department with chief complaint of weakness and sore throat. On physical examination, patient does not appear to be in respiratory distress. He is mildly hypoxic but he has COPD. He was placed on 2 L of nasal cannula. ENT examination is unremarkable. CBC is unremarkable. CMP shows elevated BUN and creatinine, slightly worsened that his baseline. UA shows no acute findings. Chest x-ray is also unremarkable. Medical records reviewed showed a CT of the chest without contrast that showed a left lower lung consolidation, infectious versus neoplastic. Patient was given IV fluids and Rocephin here. Lactic acid within normal limits. Blood cultures pending. Considering the patient has returned in such a short period of time for the same complaint, his age and comorbidities. I will admit patient for further medical management. Case discussed with who will admit. Marcellae discussed with Dr. Marino. - Lab Data Result diagrams: 12/29/20 10:24 12/29/20 10:24 Lab Results 12/29/20 12/29/20 12/29/20 Range/Units 10:24 10:24 10:24 WBC 7.5 (3.8-10.6) k/uL RBC 4.13 L (4.30-5.90) m/uL Hgb 13.8 (13.0-17.5) gm/dL Hct 40.6 (39.0-53.0) % MCV 98.2 (80.0-100.0) fL MCH 33.3 (25.0-35.0) pg MCHC 33.9 (31.0-37.0) g/dL RDW 14.6 (11.5-15.5) % Plt Count 181 (150-450) k/uL MPV 7.6 Neutrophils % 72 % Lymphocytes % 13 % Monocytes % 8 % Eosinophils % 5 % Basophils % 1 % Neutrophils # 5.4 (1.3-7.7) k/uL Lymphocytes # 0.9 L (1.0-4.8) k/uL Monocytes # 0.6 (0-1.0) k/uL Eosinophils # 0.4 (0-0.7) k/uL Basophils # 0.1 (0-0.2) k/uL PT 10.3 (9.0-12.0) sec INR 1.0 (<1.2) APTT 21.3 L (22.0-30.0) sec Sodium (137-145) mmol/L Potassium (3.5-5.1) mmol/L Chloride (98-107) mmol/L Carbon Dioxide (22-30) mmol/L Anion Gap mmol/L BUN (9-20) mg/dL Creatinine (0.66-1.25) mg/dL Est GFR (CKD-EPI)AfAm (>60 ml/min/1.73 sqM) Est GFR (CKD-EPI)NonAf (>60 ml/min/1.73 sqM) Glucose (74-99) mg/dL Plasma Lactic Acid Jese (0.7-2.0) mmol/L Calcium (8.4-10.2) mg/dL Magnesium (1.6-2.3) mg/dL Total Bilirubin (0.2-1.3) mg/dL AST (17-59) U/L ALT (4-49) U/L Alkaline Phosphatase (38-126) U/L Troponin I (0.000-0.034) ng/mL Total Protein (6.3-8.2) g/dL Albumin (3.5-5.0) g/dL Urine Color Yellow Urine Appearance Clear (Clear) Urine pH 6.0 (5.0-8.0) Ur Specific [place] 1.019 (1.001-1.035) Urine Protein 2+ H (Negative) Urine Glucose (UA) 4+ H (Negative) Urine Ketones Negative (Negative) Urine Blood Negative (Negative) Urine Nitrite Negative (Negative) Urine Bilirubin Negative (Negative) Urine Urobilinogen <2.0 (<2.0) mg/dL Ur Leukocyte Esterase Negative (Negative) Urine RBC 2 (0-5) /hpf Urine WBC 3 (0-5) /hpf Ur Squamous Epith Cells 1 (0-4) /hpf Hyaline Casts 1 (0-2) /lpf Urine Mucus Rare H (None) /hpf Coronavirus (PCR) (Not Detectd) 12/29/20 12/29/20 12/29/20 Range/Units 10:24 10:24 10:24 WBC (3.8-10.6) k/uL RBC (4.30-5.90) m/uL Hgb (13.0-17.5) gm/dL Hct (39.0-53.0) % MCV (80.0-100.0) fL MCH (25.0-35.0) pg MCHC (31.0-37.0) g/dL RDW (11.5-15.5) % Plt Count (150-450) k/uL MPV Neutrophils % % Lymphocytes % % Monocytes % % Eosinophils % % Basophils % % Neutrophils # (1.3-7.7) k/uL Lymphocytes # (1.0-4.8) k/uL Monocytes # (0-1.0) k/uL Eosinophils # (0-0.7) k/uL Basophils # (0-0.2) k/uL PT (9.0-12.0) sec INR (<1.2) APTT (22.0-30.0) sec Sodium 140 (137-145) mmol/L Potassium 4.6 (3.5-5.1) mmol/L Chloride 107 (98-107) mmol/L Carbon Dioxide 23 (22-30) mmol/L Anion Gap 10 mmol/L BUN 38 H (9-20) mg/dL Creatinine 1.64 H (0.66-1.25) mg/dL Est GFR (CKD-EPI)AfAm 43 (>60 ml/min/1.73 sqM) Est GFR (CKD-EPI)NonAf 38 (>60 ml/min/1.73 sqM) Glucose 178 H (74-99) mg/dL Plasma Lactic Acid Jese 1.7 (0.7-2.0) mmol/L Calcium 10.0 (8.4-10.2) mg/dL Magnesium 1.7 (1.6-2.3) mg/dL Total Bilirubin 0.5 (0.2-1.3) mg/dL AST 30 (17-59) U/L ALT 22 (4-49) U/L Alkaline Phosphatase 124 (38-126) U/L Troponin I <0.012 (0.000-0.034) ng/mL Total Protein 7.0 (6.3-8.2) g/dL Albumin 4.1 (3.5-5.0) g/dL Urine Color Urine Appearance (Clear) Urine pH (5.0-8.0) Ur Specific [place] (1.001-1.035) Urine Protein (Negative) Urine Glucose (UA) (Negative) Urine Ketones (Negative) Urine Blood (Negative) Urine Nitrite (Negative) Urine Bilirubin (Negative) Urine Urobilinogen (<2.0) mg/dL Ur Leukocyte Esterase (Negative) Urine RBC (0-5) /hpf Urine WBC (0-5) /hpf Ur Squamous Epith Cells (0-4) /hpf Hyaline Casts (0-2) /lpf Urine Mucus (None) /hpf Coronavirus (PCR) (Not Detectd) 12/29/20 Range/Units 10:43 WBC (3.8-10.6) k/uL RBC (4.30-5.90) m/uL Hgb (13.0-17.5) gm/dL Hct (39.0-53.0) % MCV (80.0-100.0) fL MCH (25.0-35.0) pg MCHC (31.0-37.0) g/dL RDW (11.5-15.5) % Plt Count (150-450) k/uL MPV Neutrophils % % Lymphocytes % % Monocytes % % Eosinophils % % Basophils % % Neutrophils # (1.3-7.7) k/uL Lymphocytes # (1.0-4.8) k/uL Monocytes # (0-1.0) k/uL Eosinophils # (0-0.7) k/uL Basophils # (0-0.2) k/uL PT (9.0-12.0) sec INR (<1.2) APTT (22.0-30.0) sec Sodium (137-145) mmol/L Potassium (3.5-5.1) mmol/L Chloride (98-107) mmol/L Carbon Dioxide (22-30) mmol/L Anion Gap mmol/L BUN (9-20) mg/dL Creatinine (0.66-1.25) mg/dL Est GFR (CKD-EPI)AfAm (>60 ml/min/1.73 sqM) Est GFR (CKD-EPI)NonAf (>60 ml/min/1.73 sqM) Glucose (74-99) mg/dL Plasma Lactic Acid Jese (0.7-2.0) mmol/L Calcium (8.4-10.2) mg/dL Magnesium (1.6-2.3) mg/dL Total Bilirubin (0.2-1.3) mg/dL AST (17-59) U/L ALT (4-49) U/L Alkaline Phosphatase (38-126) U/L Troponin I (0.000-0.034) ng/mL Total Protein (6.3-8.2) g/dL Albumin (3.5-5.0) g/dL Urine Color Urine Appearance (Clear) Urine pH (5.0-8.0) Ur Specific [place] (1.001-1.035) Urine Protein (Negative) Urine Glucose (UA) (Negative) Urine Ketones (Negative) Urine Blood (Negative) Urine Nitrite (Negative) Urine Bilirubin (Negative) Urine Urobilinogen (<2.0) mg/dL Ur Leukocyte Esterase (Negative) Urine RBC (0-5) /hpf Urine WBC (0-5) /hpf Ur Squamous Epith Cells (0-4) /hpf Hyaline Casts (0-2) /lpf Urine Mucus (None) /hpf Coronavirus (PCR) Not Detected (Not Detectd) Disposition Clinical Impression: Weakness, Shortness of breath, Sore throat Disposition: ADMITTED IP TO THIS [facility] Condition: Fair Is patient prescribed a controlled substance at d/c from ED?: No Referrals: Tyson Rascon DO [Primary Care Provider] - 1-2 days Time of Disposition: 12:02
[2020-12-29 10:36] LABS: Basophils # (A) 0.1 k/uL (0-0.2); Basophils % (A) 1 %; Eosinophils # (A) 0.4 k/uL (0-0.7); Eosinophils % (A) 5 %; HCT 40.6 % (39.0-53.0); HGB 13.8 gm/dL (13.0-17.5); Lymphocytes # (A) 0.9 k/uL (1.0-4.8); Lymphocytes % (A) 13 %; MCH 33.3 pg (25.0-35.0); MCHC 33.9 g/dL (31.0-37.0); MCV 98.2 fL (80.0-100.0); Mean Platelet Volume 7.6; Monocytes # (A) 0.6 k/uL (0-1.0); Monocytes % (A) 8 %; Neutrophils # (A) 5.4 k/uL (1.3-7.7); Neutrophils % (A) 72 %; Platelet Count 181 k/uL (150-450); RBC 4.13 m/uL (4.30-5.90); RDW 14.6 % (11.5-15.5); WBC 7.5 k/uL (3.8-10.6)
--- NOTE | 2020-12-29 10:37 | XR ---
EXAMINATION TYPE: XR chest 2V DATE OF EXAM: 12/29/2020 COMPARISON: 12/28/2019 TECHNIQUE: PA and lateral views submitted. HISTORY: Weakness FINDINGS: The lungs are clear and there is no pneumothorax, pleural effusion, or focal pneumonia. Postoperati ve change and cardiac device. Bilateral pleural thickening. Hyperinflation suggests COPD. Hypertrophi c and degenerative change of the spine. IMPRESSION: 1. COPD.
[2020-12-29 10:42] LABS: Appearance,Urine Clear (Clear); Bilirubin,Urine Negative (Negative); Blood,Urine Negative (Negative); Color,Urine Yellow; Glucose,Urine (UA) 4+ (Negative); Hyaline Casts,Urine 1 /lpf (0-2); Ketones,Urine Negative (Negative); Leukocyte Esterase,Urine Negative (Negative); Mucus,Urine Rare /hpf; Nitrite,Urine Negative (Negative); Protein,Urine 2+ (Negative); RBC,Urine 2 /hpf (0-5); Specific Gravity,Urine 1.019 (1.001-1.035); Squamous Epithelial Cell,Urine 1 /hpf (0-4); Urobilinogen,Urine <2.0 mg/dL (<2.0); WBC,Urine 3 /hpf (0-5)
[2020-12-29 10:46] LABS: Albumin 4.1 g/dL (3.5-5.0); Magnesium 1.7 mg/dL (1.6-2.3); Potassium 4.6 mmol/L (3.5-5.1); Total Bilirubin 0.5 mg/dL (0.2-1.3)
[2020-12-29 10:54] LABS: Prothrombin Time 10.3 sec (9.0-12.0)
[2020-12-29 10:58] LABS: Partial Thromboplastin Time 21.3 sec (22.0-30.0)
[2020-12-29] MEDS ORDERED: NALOXONE 0.4 MG/ML 1 ML VIAL IV PRN (12:03)
[2020-12-29] MEDS ORDERED: ONDANSETRON 4 MG/2 ML VIAL IVP PRN (12:03)
[2020-12-29 13:00] LABS: Glucose,Whole Blood 111 mg/dL (75-99)
[2020-12-29 17:09] LABS: Glucose,Whole Blood 138 mg/dL (75-99)
[2020-12-29] MEDS: SODIUM CHLORIDE 0.9% 1,000 ML IV SCH (17:12)
[2020-12-29] MEDS ORDERED: BENZONATATE 100 MG CAP PO PRN (17:13)
[2020-12-29 20:47] LABS: Glucose,Whole Blood 115 mg/dL (75-99)
[2020-12-29] MEDS: REPAGLINIDE 1 MG TAB PO SCH (21:54)
[2020-12-29] MEDS: METOPROLOL SUCCINATE (ER) 25 MG TAB.ER.24H PO SCH (21:57)
[2020-12-29] MEDS: ATORVASTATIN 40 MG TAB PO SCH (21:57)
[2020-12-30] MEDS: SODIUM CHLORIDE 0.9% 1,000 ML IV SCH ×2 (01:34→15:33)
[2020-12-30] MEDS ORDERED: hydrALAZINE HCL 20 MG/ML 1 ML VIAL IVP PRN (02:02)
--- NOTE | 2020-12-30 02:52 | P.HPIM ---
History of Present Illness H&P Date: 12/29/20 Chief Complaint: Sore throat Patient is a 85-year-old male with a known history of coronary artery disease status post CABG, history of colon cancer, hypertension, hyperlipidemia, diabetes type 2 [id number] and anxiety/depression and history of AICD placement presents to ER with complaints of generalized weakness and sore throat and cough. Patient has been having symptoms for the past 2 days. Patient was recently treated for pneumonia with antibiotics involve azithromycin. Patient states that he has been having cough with yellowish sputum production. Denies any fever at home. No complaints of chest pain or shortness of breath. Denied loss of of weight. Denied any recent travel. CT chest done on 12/25/2020 showed new 2.1 x 1.4 cm lobulated density along the left lower lobe lung base. Favor inflammatory change or neoplastic disease recommend short-term 3-month follow-up. Stable cardiomegaly and bibasilar atelectasis. 8 mm nodule adjacent to the anterior margin of the left first rib within the left upper lobe not seen with certainty on the prior exam. Laboratory data showed WBC 7.5 hemoglobin 13.8 platelets 181 Sodium 140 potassium 4.6 chloride 107 BUN 38 and creatinine 1.64 and blood sugar is 178 lactic acid 1.7 troponin x1 - liver enzymes are not elevated UA showed 2+ protein 4+ glucose and RBCs 2 WBCs 3 EKG showed atrial paced rhythm with prolonged AV conduction. Chest x-ray showed COPD Review of Systems Constitutional: Patient denies any fever or chills . No generalized weakness or weight loss. Abdomen: Patient denied nausea vomiting and diarrhea and abdominal pain. Cardiovascular: Patient denies any chest pain or short of breath no palpitations. Respiratory: Patient does complain of cough with sputum production and sore throat. mild shortness of breath. Neurologic: Patient denied any numbness or tingling headache. Musculoskeletal: Patient denies any complaints of joint swelling or deformity. Skin: Negative Psychiatric: Negative Endocrine: No heat or cold intolerance. No recent weight gain. Genitourinary: No dysuria or hematuria. 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 lives in an assisted living facility. pt is independent and still drives. Smoking Status: Never smoker Past Alcohol Use History: None Reported Past Drug Use History: None Reported - Past Family History Mother Family Medical History: No Reported History Medications and Allergies Home Medications Medication Instructions Recorded Confirmed Type Fenofibrate Nanocrystallized 145 mg PO DAILY 04/03/15 12/29/20 History [Tricor] Isosorbide Mononitrate ER [Imdur] 30 mg PO DAILY #30 tab.er.24h 01/30/18 12/29/20 Rx Pantoprazole [Protonix] 40 mg PO MENDEL-MEGANKBRENDA #30 tablet.dr 01/30/18 12/29/20 Rx Atorvastatin [Lipitor] 40 mg PO HS 10/30/18 12/29/20 History Losartan Potassium 50 mg PO DAILY 11/15/20 12/29/20 History Sodium Bicarbonate Tab 650 mg PO DAILY 11/15/20 12/29/20 History Amiodarone [Cordarone] 200 mg PO DAILY 12/27/20 12/29/20 History Ascorbic Acid [Vitamin C] 500 mg PO DAILY 12/27/20 12/29/20 History Aspirin EC [Ecotrin Low Dose] 81 mg PO DAILY 12/27/20 12/29/20 History Benzonatate [Tessalon Perles] 200 mg PO Q8H PRN #15 capsule 12/27/20 12/29/20 Rx Cyanocobalamin [Vitamin B-12] 500 mcg PO DAILY 12/27/20 12/29/20 History Metoprolol Succinate (ER) [Toprol 25 mg PO BID 12/27/20 12/29/20 History Xl] Repaglinide [Prandin] 0.5 mg PO BID 12/27/20 12/29/20 History Tamsulosin HCl [Flomax] 0.4 mg PO DAILY 12/27/20 12/29/20 History Azithromycin [Zithromax Z-pack (6 See Taper PO DAILY 12/29/20 12/29/20 History tabs)] Allergies Allergy/AdvReac Type Severity Reaction Status Date / Time No Known Allergies Allergy Verified 12/29/20 10:48 Physical Exam Vitals: Vital Signs Temp Pulse Pulse Resp BP BP Pulse Ox 12/29/20 20:00 18 12/29/20 14:56 97.3 F L 61 18 184/93 97 12/29/20 12:17 70 18 163/89 96 12/29/20 11:09 97.3 F L 60 18 137/78 96 12/29/20 10:20 18 12/29/20 09:57 97.6 F 65 20 134/72 94 L Intake and Output 12/29/20 12/29/20 12/29/20 06:59 14:59 22:59 Intake Total 200 Output Total 400 Balance -200 Intake: Oral 200 Output: Urine 400 Other: Voiding Method Toilet Toilet Urinal Urinal # Voids 1 1 Weight 104.326 kg PHYSICAL EXAMINATION: Patient is lying in the bed comfortably, no acute distress, awake alert and oriented.. HEENT: Normocephalic. Neck is supple. Pupils reactive. Nostrils clear. Oral cavity is moist. Neck reveals no JVD, carotid bruits, or thyromegaly. CHEST EXAMINATION: Trachea is central. Symmetrical expansion. No wheezing. No rhonchi. No crackles. Baseline dementia sounds.. CARDIAC: Normal S1, S2 with no gallops. No murmurs ABDOMEN: Soft. Bowel sounds normal. No organomegaly. No abdominal bruits. Extremities: reveal no edema. No clubbing or cyanosis Neurologically awake, alert, oriented x2-3 with well-coordinated movements. No focal deficits noted Skin: No rash or skin lesions. Psychiatric: Coperative. Nonsuicidal Musculoskeletal: No joint swelling or deformity. Normal range of motion. Results CBC & Chem 7: 12/29/20 10:24 12/29/20 10:24 Labs: Abnormal Lab Results - Last 24 Hours (Table) 12/29/20 12/29/20 12/29/20 Range/Units 10:24 10:24 10:24 RBC 4.13 L (4.30-5.90) m/uL Lymphocytes # 0.9 L (1.0-4.8) k/uL APTT 21.3 L (22.0-30.0) sec BUN (9-20) mg/dL Creatinine (0.66-1.25) mg/dL Glucose (74-99) mg/dL POC Glucose (mg/dL) (75-99) mg/dL Urine Protein 2+ H (Negative) Urine Glucose (UA) 4+ H (Negative) Urine Mucus Rare H (None) /hpf 12/29/20 12/29/20 12/29/20 Range/Units 10:24 12:58 17:08 RBC (4.30-5.90) m/uL Lymphocytes # (1.0-4.8) k/uL APTT (22.0-30.0) sec BUN 38 H (9-20) mg/dL Creatinine 1.64 H (0.66-1.25) mg/dL Glucose 178 H (74-99) mg/dL POC Glucose (mg/dL) 111 H 138 H (75-99) mg/dL Urine Protein (Negative) Urine Glucose (UA) (Negative) Urine Mucus (None) /hpf 12/29/20 Range/Units 20:46 RBC (4.30-5.90) m/uL Lymphocytes # (1.0-4.8) k/uL APTT (22.0-30.0) sec BUN (9-20) mg/dL Creatinine (0.66-1.25) mg/dL Glucose (74-99) mg/dL POC Glucose (mg/dL) 115 H (75-99) mg/dL Urine Protein (Negative) Urine Glucose (UA) (Negative) Urine Mucus (None) /hpf Thrombosis Risk Factor Assmnt - DVT/VTE Prophylaxis DVT/VTE Prophylaxis: Pharmacologic Prophylaxis ordered - Choose All That Apply Any of the Below Risk Factors Present?: Yes Each Factor Represents 1 point: Obesity (BMI >25) Other Risk Factors: Yes Each Risk Factor Represents 3 Points: Age 75 years or older Thrombosis Risk Factor Assessment Total Risk Factor Score: 4 Thrombosis Risk Factor Assessment Level: Moderate Risk Assessment and Plan Assessment: Left lower leg pneumonia/density. Generalized weakness Chronic kidney disease stage III with baseline creatinine level around 1.6 Coronary Artery disease, history of CABG History of AICD placement Diabetes type 2 [id number] Hypertension Hyperlipidemia History of colon cancer Hard of hearing Anxiety/depression DVT prophylaxis with heparin subcu Plan: Patient will be continued on gentle IV hydration and antibiotics in the form of ceftriaxone. Continue with home blood pressure medications in the form of metoprolol losartan and Imdur. Pulmonary was consulted due to left lower lobe density. Continue to follow closely.
[2020-12-30 06:54] LABS: Glucose,Whole Blood 129 mg/dL (75-99)
[2020-12-30] MEDS: SODIUM BICARBONATE TAB 650 MG TAB PO SCH (08:36)
[2020-12-30] MEDS: ISOSORBIDE MONONITRATE ER 30 MG TAB.ER.24H PO SCH (08:36)
[2020-12-30] MEDS: ASCORBIC ACID 500 MG TAB PO SCH (08:36)
[2020-12-30] MEDS: FENOFIBRATE 160 MG TAB PO SCH (08:36)
[2020-12-30] MEDS: ASPIRIN 81 MG PO SCH (08:36)
[2020-12-30] MEDS: CYANOCOBALAMIN 500 MCG TAB PO SCH (08:36)
[2020-12-30] MEDS: TAMSULOSIN 0.4 MG CAP.ER.24H PO SCH (08:36)
[2020-12-30] MEDS: LOSARTAN 50 MG TAB PO SCH (08:36)
[2020-12-30] MEDS: METOPROLOL SUCCINATE (ER) 25 MG TAB.ER.24H PO SCH ×2 (08:36→22:07)
[2020-12-30] MEDS: HEPARIN SODIUM,PORCINE/PF 5,000 UNIT/0.5 ML SYRINGE SQ SCH ×3 (08:37→23:07)
[2020-12-30] MEDS: REPAGLINIDE 1 MG TAB PO SCH ×2 (08:37→19:41)
[2020-12-30] MEDS: AMIODARONE 200 MG TAB PO SCH (08:37)
[2020-12-30] MEDS ORDERED: PANTOPRAZOLE 40 MG/10 ML VIAL IV SCH (09:00)
[2020-12-30 09:04] LABS: Basophils # (A) 0.05 X 10*3/uL (0.00-0.10); Basophils % (A) 0.9 %; Eosinophils # (A) 0.42 X 10*3/uL (0.04-0.35); Eosinophils % (A) 7.7 %; HCT 37.9 % (39.6-50.0); HGB 12.4 g/dL (13.0-17.0); Lymphocytes # (A) 0.91 X 10*3/uL (0.90-5.00); Lymphocytes % (A) 16.6 %; MCH 32.7 pg (27.0-32.0); MCHC 32.7 g/dL (32.0-37.0); Mean Platelet Volume 9.4 fL (9.5-12.2); Monocytes # (A) 0.66 X 10*3/uL (0.20-1.00); Monocytes % (A) 12.1 %; Neutrophils % (A) 62.2 %; Platelet Count 138 X 10*3/uL (140-440); RBC 3.79 X 10*6/uL (4.40-5.60); RDW 14.7 % (11.5-14.5); WBC 5.47 X 10*3/uL (4.50-10.00)
[2020-12-30 09:32] LABS: African American GFR (CKD) 52.7 (60.0-200.0); Anion Gap 8.6 mmol/L (4.00-12.00); BUN/Creat Ratio 19.29 Ratio (12.00-20.00); Calcium 9.2 mg/dL (8.7-10.3); Carbon Dioxide 25.4 mmol/L (21.6-31.8); Non-African American GFR(CKD) 45.5 (60.0-200.0); Potassium 4.1 mmol/L (3.5-5.5)
--- NOTE | 2020-12-30 10:37 | P.CNPUL ---
History of Present Illness Reason for consult: dyspnea, cough, abnormal CXR/CT Chief complaint: Shortness of breath History of present illness: This is a pleasant 85-year-old morbidly obese male seen and evaluated examined on 6 floor, patient admitted into the hospital with generalized weakness so toward symptoms started about 2-3 days ago developed progressive initially however symptoms appears to be improving, patient has been given antibiotics as outpatient Zithromax symptoms did not improve came back into the hospital, possibly medical history significant for coronary artery disease and diabetes mellitus dyslipidemia hypertension hypertensive cardiovascular disease, on arrival patient noted to be afebrile with stable hemodynamics oxygen saturation is 96% chest x-ray suggestive of COPD bilateral pleural thickening has been noted, chest x-ray prior on November 30 essentially unremarkable, computed tomography scan performed on the December 25 noted to have a noted regular consolidation of left lower lobe 2.11.4 cm in size, 8 mm nodule in the left lung attacks maybe noted as well, nodular appearance in the left lower lobe appeared to be inflammatory, patient has been antibiotics x-rays are unremarkable Review of Systems All systems: negative 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 lives in an assisted living facility. pt is independent and still drives. Smoking Status: Never smoker Past Alcohol Use History: None Reported Past Drug Use History: None Reported - Past Family History Mother Family Medical History: No Reported History Medications and Allergies Home Medications Medication Instructions Recorded Confirmed Type Fenofibrate Nanocrystallized 145 mg PO DAILY 04/03/15 12/29/20 History [Tricor] Isosorbide Mononitrate ER [Imdur] 30 mg PO DAILY #30 tab.er.24h 01/30/18 08/06/20 Rx Pantoprazole [Protonix] 40 mg PO AC-BRKFST #30 tablet. 01/30/18 12/29/20 Rx Atorvastatin [Lipitor] 40 mg PO HS 10/30/18 12/29/20 History Losartan Potassium 50 mg PO DAILY 11/15/20 12/29/20 History Sodium Bicarbonate Tab 650 mg PO DAILY 11/15/20 12/29/20 History Amiodarone [Cordarone] 200 mg PO DAILY 12/27/20 12/29/20 History Ascorbic Acid [Vitamin C] 500 mg PO DAILY 12/27/20 12/29/20 History Aspirin EC [Ecotrin Low Dose] 81 mg PO DAILY 12/27/20 12/29/20 History Benzonatate [Tessalon Perles] 200 mg PO Q8H PRN #15 capsule 12/27/20 12/29/20 Rx Cyanocobalamin [Vitamin B-12] 500 mcg PO DAILY 12/27/20 12/29/20 History Metoprolol Succinate (ER) [Toprol 25 mg PO BID 12/27/20 12/29/20 History Xl] Repaglinide [Prandin] 0.5 mg PO BID 12/27/20 12/29/20 History Tamsulosin HCl [Flomax] 0.4 mg PO DAILY 12/27/20 12/29/20 History Azithromycin [Zithromax Z-pack (6 See Taper PO DAILY 12/29/20 12/29/20 History tabs)] Allergies Allergy/AdvReac Type Severity Reaction Status Date / Time No Known Allergies Allergy Verified 12/29/20 10:48 Physical Exam Vitals: Vital Signs Temp Pulse Pulse Pulse Resp BP BP 12/30/20 08:00 18 12/30/20 06:47 97.4 F L 81 22 12/30/20 02:50 162/84 12/30/20 02:00 97.5 F L 73 18 187/101 12/29/20 20:00 98.0 F 57 L 17 177/87 12/29/20 14:56 97.3 F L 61 18 184/93 12/29/20 12:17 70 18 163/89 12/29/20 11:09 97.3 F L 60 18 137/78 BP Pulse Ox 12/30/20 08:00 12/30/20 06:47 174/99 95 12/30/20 02:50 12/30/20 02:00 94 L 12/29/20 20:00 95 12/29/20 14:56 97 12/29/20 12:17 96 12/29/20 11:09 96 Intake and Output 12/29/20 12/30/20 12/30/20 22:59 06:59 14:59 Intake Total 200 Output Total 400 Balance -200 Intake: Oral 200 Output: Urine 400 Other: Voiding Method Toilet Urinal # Voids 2 4 1 # Bowel Movements 1 - Constitutional General appearance: disheveled, morbidly obese, no acute distress - EENT Eyes: PERRLA Ears: bilateral: normal - Neck Neck: normal ROM Carotids: bilateral: upstroke normal Thyroid: bilateral: normal size - Respiratory Respiratory: bilateral: diminished - Cardiovascular Rhythm: regular Heart sounds: normal: S1, S2 - Gastrointestinal General gastrointestinal: distended, normal bowel sounds Localized gastrointestinal: mass: diffuse - Integumentary Integumentary: normal turgor - Neurologic Neurologic: CNII-XII intact - Musculoskeletal Musculoskeletal: gait normal, generalized weakness, strength equal bilaterally - Psychiatric Psychiatric: A&O x's 3, appropriate affect, intact judgment & insight Results - Laboratory Findings CBC and BMP: 12/30/20 05:53 12/30/20 05:53 PT/INR, D-dimer PT 10.3 sec (9.0-12.0) 12/29/20 10:24 INR 1.0 (<1.2) 12/29/20 10:24 Abnormal lab findings: Abnormal Labs 12/29/20 12/29/20 12/29/20 10:24 10:24 10:24 RBC 4.13 L Hgb Hct MCV MCH RDW Plt Count MPV Lymphocytes # 0.9 L Eosinophils # APTT 21.3 L BUN Creatinine Est GFR (CKD-EPI)AfAm Est GFR (CKD-EPI)NonAf Glucose POC Glucose (mg/dL) Urine Protein 2+ H Urine Glucose (UA) 4+ H Urine Mucus Rare H 12/29/20 12/29/20 12/29/20 10:24 12:58 17:08 RBC Hgb Hct MCV MCH RDW Plt Count MPV Lymphocytes # Eosinophils # APTT BUN 38 H Creatinine 1.64 H Est GFR (CKD-EPI)AfAm Est GFR (CKD-EPI)NonAf Glucose 178 H POC Glucose (mg/dL) 111 H 138 H Urine Protein Urine Glucose (UA) Urine Mucus 12/29/20 12/30/20 12/30/20 20:46 05:53 05:53 RBC 3.79 L Hgb 12.4 L Hct 37.9 L MCV 100.0 H MCH 32.7 H RDW 14.7 H Plt Count 138 L MPV 9.4 L Lymphocytes # Eosinophils # 0.42 H APTT BUN Creatinine Est GFR (CKD-EPI)AfAm 52.7 L Est GFR (CKD-EPI)NonAf 45.5 L Glucose 136 H POC Glucose (mg/dL) 115 H Urine Protein Urine Glucose (UA) Urine Mucus 12/30/20 06:50 RBC Hgb Hct MCV MCH RDW Plt Count MPV Lymphocytes # Eosinophils # APTT BUN Creatinine Est GFR (CKD-EPI)AfAm Est GFR (CKD-EPI)NonAf Glucose POC Glucose (mg/dL) 129 H Urine Protein Urine Glucose (UA) Urine Mucus - Diagnostic Findings Chest x-ray: report reviewed, image reviewed CT scan - chest: report reviewed, image reviewed Assessment and Plan Assessment: Left lower lobe nodular infiltrate likely pneumonia however neoplastic lesion cannot be excluded, Recent pneumonia Generalized weakness Chronic kidney disease stage III Coronary artery disease status post CABG Hypertension hypertensive cardiovascular disease Dyslipidemia Colon cancer Plan: Continue antibiotics Continue deep breathing exercise incentive spirometry Follow clinical course closely we'll follow up on outpatient setting likely recommend short-term follow-up CT or PET scan Further plan of care as per clinical response of the patient Time with Patient: Greater than 30
[2020-12-30] MEDS ORDERED: IPRATROPIUM-ALBUTEROL 3 ML NEB INHALATION PRN (11:37)
--- NOTE | 2020-12-30 11:41 | P.PN ---
Subjective Progress Note Date: 12/30/20 This is an 85-year-old gentleman presented with generalized weakness, sore throat, cough, recent sinus infection completed antibiotic therapy. Reports occasional productive cough, yellow sputum. Denies chest pain, palpitations or shortness of breath. Maintaining O2 sats in the 90s on room air. Continues on IV antibiotics of Rocephin. Good diet intake, consuming 100% with no nausea vomiting or diarrhea.Prior to admission, Chest CT 12/25/2020 reported a new 2.1 x 1.4 cm lobulated density along the left lower lung base, favor inflammatory change, or neoplastic disease, stable cardiomegaly with basilar atelectasis, 8 mm nodule adjacent to the anterior margin on the left first rib within the left upper lobe not seen with certainty on prior exam, though present on 02/01/2014 exam. Chest x-ray of yesterday reported COPD. Afebrile. Receiving gentle IV fluid hydration, renal function improving, BUN 27, creatinine 1.4, baseline. Blood sugars controlled. Hypertensive. Objective - Vital Signs Vital signs: Vital Signs Temp 97.4 F L 12/30/20 06:47 Pulse 81 12/30/20 06:47 Resp 18 12/30/20 08:00 BP 174/99 12/30/20 06:47 Pulse Ox 95 12/30/20 06:47 Intake & Output 12/29/20 12/30/20 12/30/20 18:59 06:59 18:59 Intake Total 200 Output Total 400 Balance -200 Weight 104.326 kg Intake: Oral 200 Output: Urine 400 Other: Voiding Method Toilet Toilet Urinal Urinal # Voids 1 4 1 # Bowel Movements 1 - Exam PHYSICAL EXAMINATION: GENERAL: Sitting up in bed, alert and oriented 3, no acute distress. HEENT: Normocephalic. Neck is supple. Pupils reactive. Oral mucosa moist. Neck: supple, no JVD. CHEST EXAMINATION: Symmetrical expansion. Bilateral bases diminished, No wheezing. No rhonchi. No crackles. CARDIAC: Normal S1, S2 with no gallops. No murmurs ABDOMEN: Soft. Bowel sounds normal. No organomegaly. No abdominal bruits. Extremities: reveal no edema. No clubbing or cyanosis Neuro: Cranial nerves II through XII grossly intact, No focal deficits noted. Skin: Warm and dry, No rash. - Labs CBC & Chem 7: 12/30/20 05:53 12/30/20 05:53 Labs: Abnormal Lab Results - Last 24 Hours (Table) 12/29/20 12/29/20 12/29/20 Range/Units 10:24 10:24 10:24 RBC (4.40-5.60) X 10*6/uL Hgb (13.0-17.0) g/dL Hct (39.6-50.0) % MCV (80.0-97.0) fL MCH (27.0-32.0) pg RDW (11.5-14.5) % Plt Count (140-440) X 10*3/uL MPV (9.5-12.2) fL Eosinophils # (0.04-0.35) X 10*3/uL APTT 21.3 L (22.0-30.0) sec BUN 38 H (9-20) mg/dL Creatinine 1.64 H (0.66-1.25) mg/dL Est GFR (CKD-EPI)AfAm (60.0-200.0) Est GFR (CKD-EPI)NonAf (60.0-200.0) Glucose 178 H (74-99) mg/dL POC Glucose (mg/dL) (75-99) mg/dL Urine Protein 2+ H (Negative) Urine Glucose (UA) 4+ H (Negative) Urine Mucus Rare H (None) /hpf 12/29/20 12/29/20 12/29/20 Range/Units 12:58 17:08 20:46 RBC (4.40-5.60) X 10*6/uL Hgb (13.0-17.0) g/dL Hct (39.6-50.0) % MCV (80.0-97.0) fL MCH (27.0-32.0) pg RDW (11.5-14.5) % Plt Count (140-440) X 10*3/uL MPV (9.5-12.2) fL Eosinophils # (0.04-0.35) X 10*3/uL APTT (22.0-30.0) sec BUN (9-20) mg/dL Creatinine (0.66-1.25) mg/dL Est GFR (CKD-EPI)AfAm (60.0-200.0) Est GFR (CKD-EPI)NonAf (60.0-200.0) Glucose (74-99) mg/dL POC Glucose (mg/dL) 111 H 138 H 115 H (75-99) mg/dL Urine Protein (Negative) Urine Glucose (UA) (Negative) Urine Mucus (None) /hpf 12/30/20 12/30/20 12/30/20 Range/Units 05:53 05:53 06:50 RBC 3.79 L (4.40-5.60) X 10*6/uL Hgb 12.4 L (13.0-17.0) g/dL Hct 37.9 L (39.6-50.0) % MCV 100.0 H (80.0-97.0) fL MCH 32.7 H (27.0-32.0) pg RDW 14.7 H (11.5-14.5) % Plt Count 138 L (140-440) X 10*3/uL MPV 9.4 L (9.5-12.2) fL Eosinophils # 0.42 H (0.04-0.35) X 10*3/uL APTT (22.0-30.0) sec BUN (9-20) mg/dL Creatinine (0.66-1.25) mg/dL Est GFR (CKD-EPI)AfAm 52.7 L (60.0-200.0) Est GFR (CKD-EPI)NonAf 45.5 L (60.0-200.0) Glucose 136 H (74-99) mg/dL POC Glucose (mg/dL) 129 H (75-99) mg/dL Urine Protein (Negative) Urine Glucose (UA) (Negative) Urine Mucus (None) /hpf Assessment and Plan Assessment: Left lower lobe lung base loculated density, possible community acquired pneumonia, possible neoplastic disease. Further follow-up recommended outpatient. 8 mm nodule left lung apex, possibly associated with first rib Recent sinus infection Acute on Chronic kidney disease stage III with baseline creatinine level around 1.6 History of colon CA Coronary Artery disease, history of CABG,AICD placement Diabetes type 2 [id number] Hypertension Hyperlipidemia History of colon cancer Hard of hearing Anxiety/depression Plan: Continue on current medication regime ,monitoring and symptomatic treatment. Maintain gentle IV fluid hydration, IV antibiotics. Pulmonary consult in place, recommendations pending. Outpatient CT/PET scan regarding a bnormal lung CT. Close monitoring of renal function with repeat labs ordered for a.m. hypertensive, hydralazine ordered. PT/OT evaluation ordered regarding patient's complaints of increased generalized weakness. Discharge planning in progress for tomorrow pending final DC recommendations and clearance from pulmonary. The impression and plan of care has been dictated as directed. : I performed a history and examination of this patient, discussed the same with the dictator. I agree with the dictator's note ,documented as a scribe. Any additional findings or plans will be noted.
[2020-12-30 12:23] LABS: Glucose,Whole Blood 129 mg/dL (75-99)
[2020-12-30] MEDS: hydrALAZINE HCL 25 MG TAB PO SCH ×3 (13:44→22:07)
[2020-12-30] MEDS: IPRATROPIUM-ALBUTEROL 3 ML NEB INHALATION SCH ×2 (15:54)
[2020-12-30 17:25] LABS: Glucose,Whole Blood 96 mg/dL (75-99)
[2020-12-30] MEDS ORDERED: VANCOMYCIN IV PER PHARMACY 1 EACH MISC MISCELLANE PRN (17:52)
[2020-12-30] MEDS ORDERED: VANCOMYCIN 1,750 MG in SODIUM CHLORIDE 0.9% 500 ML 500 ML IVPB SCH (18:00)
[2020-12-30 20:35] LABS: Glucose,Whole Blood 159 mg/dL (75-99)
[2020-12-30] MEDS: ATORVASTATIN 40 MG TAB PO SCH (22:07)
[2020-12-31] MEDS: IPRATROPIUM-ALBUTEROL 3 ML NEB INHALATION SCH ×4 (05:34→16:27)
[2020-12-31 07:10] LABS: Glucose,Whole Blood 109 mg/dL (75-99)
[2020-12-31] MEDS: hydrALAZINE HCL 25 MG TAB PO SCH ×2 (08:38→16:21)
[2020-12-31] MEDS: SODIUM BICARBONATE TAB 650 MG TAB PO SCH (08:38)
[2020-12-31] MEDS: REPAGLINIDE 1 MG TAB PO SCH ×2 (08:38→16:24)
[2020-12-31] MEDS: ISOSORBIDE MONONITRATE ER 30 MG TAB.ER.24H PO SCH (08:38)
[2020-12-31] MEDS: LOSARTAN 50 MG TAB PO SCH (08:38)
[2020-12-31] MEDS: ASCORBIC ACID 500 MG TAB PO SCH (08:39)
[2020-12-31] MEDS: ASPIRIN 81 MG PO SCH (08:39)
[2020-12-31] MEDS: METOPROLOL SUCCINATE (ER) 25 MG TAB.ER.24H PO SCH ×2 (08:39→20:30)
[2020-12-31] MEDS: TAMSULOSIN 0.4 MG CAP.ER.24H PO SCH (08:39)
[2020-12-31] MEDS: FENOFIBRATE 160 MG TAB PO SCH (08:39)
[2020-12-31] MEDS: AMIODARONE 200 MG TAB PO SCH (08:39)
[2020-12-31] MEDS: CYANOCOBALAMIN 500 MCG TAB PO SCH (08:39)
[2020-12-31] MEDS: PANTOPRAZOLE 40 MG TABLET PO SCH ×2 (08:39→16:21)
[2020-12-31] MEDS: HEPARIN SODIUM,PORCINE/PF 5,000 UNIT/0.5 ML SYRINGE SQ SCH ×2 (08:40→16:20)
[2020-12-31 11:38] LABS: Glucose,Whole Blood 158 mg/dL (75-99)
[2020-12-31] MEDS: SODIUM CHLORIDE 0.9% 1,000 ML IV SCH (12:17)
[2020-12-31] MEDS ORDERED: VANCOMYCIN 1,750 MG in SODIUM CHLORIDE 0.9% 500 ML 500 ML IVPB SCH (14:00)
--- NOTE | 2020-12-31 16:43 | P.PN ---
Subjective Progress Note Date: 12/31/20 This is an 85-year-old gentleman presented with generalized weakness, sore throat, cough, recent sinus infection completed antibiotic therapy. Reports occasional productive cough, yellow sputum. Denies chest pain, palpitations or shortness of breath. Maintaining O2 sats in the 90s on room air. Continues on IV antibiotics of Rocephin. Good diet intake, consuming 100% with no nausea vomiting or diarrhea.Prior to admission, Chest CT 12/25/2020 reported a new 2.1 x 1.4 cm lobulated density along the left lower lung base, favor inflammatory change, or neoplastic disease, stable cardiomegaly with basilar atelectasis, 8 mm nodule adjacent to the anterior margin on the left first rib within the left upper lobe not seen with certainty on prior exam, though present on 02/01/2014 exam. Chest x-ray of yesterday reported COPD. Afebrile. Receiving gentle IV fluid hydration, renal function improving, BUN 27, creatinine 1.4, baseline. Blood sugars controlled. Hypertensive. 2020 last night blood cultures reporting gram positive cocci in clusters. Vancomycin initiated with repeat blood culture ordered. BMP pending. Afebrile. Maintaining O2 sats in the 90s on 2 L nasal cannula. Denies chest pain, palpitations or increasing shortness of breath. Good diet intake, denies nausea vomiting or diarrhea. Denies abdominal pain. Evaluated by PT with no functional limits detected, using a rolling walker. Objective - Vital Signs Vital signs: Vital Signs Temp 97.7 F 12/31/20 14:51 Pulse 68 12/31/20 14:51 Resp 16 12/31/20 14:51 BP 111/63 12/31/20 14:51 Pulse Ox 95 12/31/20 14:51 Intake & Output 12/30/20 12/31/20 12/31/20 18:59 06:59 18:59 Intake Total 240 200 Output Total 200 Balance 240 0 Intake: Oral 240 200 Output: Urine 200 Other: # Voids 1 2 1 # Bowel Movements 0 0 - Exam PHYSICAL EXAMINATION: GENERAL: Sitting up in bed, alert and oriented 3, no acute distress. HEENT: Normocephalic. Neck is supple. Pupils reactive. Oral mucosa moist CHEST EXAMINATION: Symmetrical expansion. Bilateral bases diminished, No wheezing. No rhonchi. No crackles. CARDIAC: Normal S1, S2 with no gallops. No murmurs ABDOMEN: Soft. Bowel sounds normal. No organomegaly. Extremities: reveal no edema. No clubbing or cyanosis Neuro: Cranial nerves II through XII grossly intact, No focal deficits noted. Skin: Warm and dry, No rash. - Labs CBC & Chem 7: 12/30/20 05:53 12/30/20 05:53 Labs: Abnormal Lab Results - Last 24 Hours (Table) 12/30/20 12/31/20 12/31/20 Range/Units 20:34 07:08 11:36 POC Glucose (mg/dL) 159 H 109 H 158 H (75-99) mg/dL Microbiology - Last 24 Hours (Table) 12/29/20 10:24 Blood Culture Gram Stain - Final Blood Blood Culture - Final Micrococcus species 12/29/20 10:24 Blood Culture - Preliminary Blood No Growth after 48 hours 12/29/20 10:24 Blood Culture - Final Blood Assessment and Plan Assessment: Left lower lobe lung base loculated density, possible community acquired pneumonia, possible neoplastic disease. Further follow-up recommended outpatient. 8 mm nodule left lung apex, possibly associated with first rib Recent sinus infection Acute on Chronic kidney disease stage III with baseline creatinine level around 1.6 History of colon CA Coronary Artery disease, history of CABG,AICD placement Diabetes type 2 [id number] Hypertension Hyperlipidemia History of colon cancer Hard of hearing Anxiety/depression Plan: Continue on current medication regime ,monitoring and symptomatic treatment. Vancomycin initiated last night , BMP pending . Repeat blood culture pending Infectious disease consult in place with recommendations pending .Close monitoring of renal function with repeat labs ordered for a.m. hypertensive, hydralazine dose increased. The impression and plan of care has been dictated as directed. : I performed a history and examination of this patient, discussed the same with the dictator. I agree with the dictator's note ,documented as a scribe. Any additional findings or plans will be noted.
[2020-12-31 17:19] LABS: Glucose,Whole Blood 139 mg/dL (75-99)
--- NOTE | 2020-12-31 17:36 | P.PN ---
Subjective Progress Note Date: 12/31/20 Principal diagnosis: Left lower lobe nodular infiltrate likely pneumonia however neoplastic lesion cannot be excluded, Recent pneumonia Generalized weakness Chronic kidney disease stage III Coronary artery disease status post CABG Hypertension hypertensive cardiovascular disease Dyslipidemia Colon cancer 12/31/2020, patient seen eval examined during the rounds labs reviewed medications reviewed care plan discussed, patient remained short of breath the severity appears to have improved, patient remains on antibiotics with optimal medical therapy, remains afebrile with stable oxygen saturation 95% on room air, blood pressure within normal limit, blood culture came back positive for micrococcus, ID service has been following, This is a pleasant 85-year-old morbidly obese male seen and evaluated examined on 6 floor, patient admitted into the hospital with generalized weakness so toward symptoms started about 2-3 days ago developed progressive initially however symptoms appears to be improving, patient has been given antibiotics as outpatient Zithromax symptoms did not improve came back into the hospital, possibly medical history significant for coronary artery disease and diabetes mellitus dyslipidemia hypertension hypertensive cardiovascular disease, on arrival patient noted to be afebrile with stable hemodynamics oxygen saturation is 96% chest x-ray suggestive of COPD bilateral pleural thickening has been noted, chest x-ray prior on November 30 essentially unremarkable, computed tomography scan performed on the December 25 noted to have a noted regular consolidation of left lower lobe 2.11.4 cm in size, 8 mm nodule in the left lung attacks maybe noted as well, nodular appearance in the left lower lobe appeared to be inflammatory, patient has been antibiotics x-rays are unremarkable Objective - Vital Signs Vital signs: Vital Signs Temp 97.7 F 12/31/20 14:51 Pulse 60 12/31/20 16:38 Resp 16 12/31/20 14:51 BP 111/63 12/31/20 14:51 Pulse Ox 95 12/31/20 14:51 Intake & Output 12/30/20 12/31/20 12/31/20 18:59 06:59 18:59 Intake Total 240 200 Output Total 200 Balance 240 0 Intake: Oral 240 200 Output: Urine 200 Other: # Voids 1 2 1 # Bowel Movements 0 0 - Exam - Constitutional General appearance: disheveled, morbidly obese, no acute distress - EENT Eyes: PERRLA Ears: bilateral: normal - Neck Neck: normal ROM Carotids: bilateral: upstroke normal Thyroid: bilateral: normal size - Respiratory Respiratory: bilateral: diminished - Cardiovascular Rhythm: regular Heart sounds: normal: S1, S2 - Gastrointestinal General gastrointestinal: distended, normal bowel sounds Localized gastrointestinal: mass: diffuse - Integumentary Integumentary: normal turgor - Neurologic Neurologic: CNII-XII intact - Musculoskeletal Musculoskeletal: gait normal, generalized weakness, strength equal bilaterally - Psychiatric Psychiatric: A&O x's 3, appropriate affect, intact judgment & insight - Labs CBC & Chem 7: 12/30/20 05:53 12/30/20 05:53 Labs: Abnormal Lab Results - Last 24 Hours (Table) 12/30/20 12/31/20 12/31/20 Range/Units 20:34 07:08 11:36 POC Glucose (mg/dL) 159 H 109 H 158 H (75-99) mg/dL 12/31/20 Range/Units 17:17 POC Glucose (mg/dL) 139 H (75-99) mg/dL Microbiology - Last 24 Hours (Table) 12/29/20 10:24 Blood Culture Gram Stain - Final Blood Blood Culture - Final Micrococcus species 12/29/20 10:24 Blood Culture - Preliminary Blood No Growth after 48 hours 12/29/20 10:24 Blood Culture - Final Blood Assessment and Plan Assessment: Left lower lobe nodular infiltrate likely pneumonia however neoplastic lesion cannot be excluded, Bacteremia Recent pneumonia Generalized weakness Chronic kidney disease stage III Coronary artery disease status post CABG Hypertension hypertensive cardiovascular disease Dyslipidemia Colon cancer Plan: Continue antibiotics Continue deep breathing exercise incentive spirometry Follow clinical course closely we'll follow up on outpatient setting likely recommend short-term follow-up CT or PET scan Further plan of care as per clinical response of the patient Time with Patient: Greater than 30
[2020-12-31 17:50] LABS: African American GFR (CKD) 50 (>60 ml/min/1.73 sqM); Anion Gap 9 mmol/L; Blood Urea Nitrogen 25 mg/dL (9-20); Calcium 8.9 mg/dL (8.4-10.2); Carbon Dioxide 22 mmol/L (22-30); Chloride 107 mmol/L (98-107); Glucose 147 mg/dL (74-99); Non-African American GFR(CKD) 43 (>60 ml/min/1.73 sqM); Potassium 4.9 mmol/L (3.5-5.1); Sodium 138 mmol/L (137-145)
[2020-12-31 20:25] LABS: Glucose,Whole Blood 138 mg/dL (75-99)
[2020-12-31] MEDS: hydrALAZINE HCL 50 MG TAB PO SCH (20:30)
[2020-12-31] MEDS: ATORVASTATIN 40 MG TAB PO SCH (20:30)
--- NOTE | 2020-12-31 22:23 | P.CONS ---
History of Present Illness - Reason for Consult Consult date: 12/31/20 Bacteremia Requesting physician: Saida Velasco - Chief Complaint weakness x few days - History of Present Illness Patient is 85-year-old male presented to the hospital 2 days ago for evaluation of increasing weakness and sore throat patient symptom has been going on for 2 days before presentation the hospital patient also have a cough which is mild to moderate intensity is mostly dry nature with occasional yellow sputum. Denies having any pleuritic chest pain, patient denies any nausea no vomiting no abdominal pain or any diarrhea with the symptom the patient was evaluated by ER physician on arrival to the ER the patient was afebrile and no fever has been recorded subsequently patient did have a normal white count with no left shift patient did have elevated BUN and creatinine urine was negative sánchez PCR was negative patient did have a chest x-ray COPD with evidence of any pneumonia patient did have blood cultures drawn which came back positive with gram-positive cocci vancomycin was added infection was consulted for further management of antibiotic therapy, patient evaluation this morning is feeling better his breathing has improved denies any nausea no vomiting or diarrhea Review of Systems Positive point has been mentioned in the HPI rest of the systems are negative 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 lives in an assisted living facility. pt is independent and still drives. Smoking Status: Never smoker Past Alcohol Use History: None Reported Past Drug Use History: None Reported - Past Family History Mother Family Medical History: No Reported History Medications and Allergies Home Medications Medication Instructions Recorded Confirmed Type Fenofibrate Nanocrystallized 145 mg PO DAILY 04/03/15 12/29/20 History [Tricor] Isosorbide Mononitrate ER [Imdur] 30 mg PO DAILY #30 tab.er.24h 01/30/18 12/29/20 Rx Pantoprazole [Protonix] 40 mg PO MENDEL-MEGANKFST #30 tablet. 01/30/18 12/29/20 Rx Atorvastatin [Lipitor] 40 mg PO HS 10/30/18 12/29/20 History Losartan Potassium 50 mg PO DAILY 11/15/20 12/29/20 History Sodium Bicarbonate Tab 650 mg PO DAILY 11/15/20 12/29/20 History Amiodarone [Cordarone] 200 mg PO DAILY 12/27/20 12/29/20 History Ascorbic Acid [Vitamin C] 500 mg PO DAILY 12/27/20 12/29/20 History Aspirin EC [Ecotrin Low Dose] 81 mg PO DAILY 12/27/20 12/29/20 History Benzonatate [Tessalon Perles] 200 mg PO Q8H PRN #15 capsule 12/27/20 12/29/20 Rx Cyanocobalamin [Vitamin B-12] 500 mcg PO DAILY 12/27/20 12/29/20 History Metoprolol Succinate (ER) [Toprol 25 mg PO BID 12/27/20 12/29/20 History Xl] Repaglinide [Prandin] 0.5 mg PO BID 12/27/20 12/29/20 History Tamsulosin HCl [Flomax] 0.4 mg PO DAILY 12/27/20 12/29/20 History Azithromycin [Zithromax Z-pack (6 See Taper PO DAILY 12/29/20 12/29/20 History tabs)] Allergies Allergy/AdvReac Type Severity Reaction Status Date / Time No Known Allergies Allergy Verified 12/29/20 10:48 Physical Exam Vitals: Vital Signs Temp Pulse Pulse Resp BP Pulse Ox 12/31/20 07:54 60 12/31/20 07:40 60 12/31/20 07:00 97.5 F L 60 16 175/82 95 12/31/20 02:05 98.3 F 70 18 149/74 92 L 12/31/20 02:00 20 12/30/20 19:25 98.4 F 60 20 162/77 93 L 12/30/20 16:06 60 12/30/20 15:54 60 12/30/20 14:12 97.6 F 60 20 134/71 95 Intake and Output 08/07/2112/31/20 12/31/20 22:59 06:59 14:59 Intake Total 200 Output Total 200 Balance -200 200 Intake: Oral 200 Output: Urine 200 Other: # Voids 2 1 # Bowel Movements 0 GENERAL DESCRIPTION: Elderly male lying in bed, no distress. No tachypnea or accessory muscle of respiration use. HEENT: Shows Pallor , no scleral icterus. Oral mucous membrane is dry. No pharyngeal erythema or thrush NECK: Trachea central, no thyromegaly. LUNGS: Unlabored breathing. Decreased intensity of breath sounds. No wheeze or crackle. HEART: S1, S2, regular rate and rhythm. No loud murmur ABDOMEN: Soft, no tenderness , guarding or rigidity, no organomegaly EXTREMITIES: No edema of feet. SKIN: No rash, no masses palpable. NEUROLOGICAL: The patient is awake, alert, oriented x3, mood and affect normal. Results CBC & Chem 7: 12/30/20 05:53 12/31/20 17:07 Labs: Abnormal Lab Results - Last 24 Hours (Table) 12/30/20 12/30/20 12/31/20 Range/Units 11:59 20:34 07:08 POC Glucose (mg/dL) 129 H 159 H 109 H (75-99) mg/dL Microbiology - Last 24 Hours (Table) 12/29/20 10:24 Blood Culture Gram Stain - Preliminary Blood 12/29/20 10:24 Blood Culture - Final Blood 12/29/20 10:24 Blood Culture - Preliminary Blood No Growth after 24 hours Assessment and Plan Assessment: patient with a positive blood culture with gram-positive cocci in this patient admitted to hospital with generalized weakness and predominantly respiratory symptoms however chest x-ray has been negative for any consolidation patient did not have any fever or elevated white count with concern for possible skin contamination as patient not behaving as true bacteremia 2-patient with renal insufficiency and high risk of nephrotoxicity (1) Positive blood culture Current Visit: Yes Status: Acute Code(s): R78.81 - BACTEREMIA SNOMED Code(s): 608812804 Plan: 1-we will wait for the final ID of this pathogen if coagulase-negative staph or micrococcus will be disregarded as contaminant however if still findings will need further work-up for possible source 2-discontinue vancomycin as clinically not behaving as true bacteremia We will follow on clinical condition and cultures to further adjust medication if needed Thank you for this consultation we will follow the patient along with you Time with Patient: Greater than 30
[2021-01-01] MEDS: HEPARIN SODIUM,PORCINE/PF 5,000 UNIT/0.5 ML SYRINGE SQ SCH ×4 (00:03→23:39)
[2021-01-01] MEDS: SODIUM CHLORIDE 0.9% 1,000 ML IV SCH ×2 (06:50→23:40)
[2021-01-01 07:14] LABS: Glucose,Whole Blood 110 mg/dL (75-99)
[2021-01-01] MEDS: IPRATROPIUM-ALBUTEROL 3 ML NEB INHALATION SCH ×5 (07:40→19:26)
[2021-01-01] MEDS: REPAGLINIDE 1 MG TAB PO SCH ×2 (08:24→17:50)
[2021-01-01] MEDS: FENOFIBRATE 160 MG TAB PO SCH (08:25)
[2021-01-01] MEDS: ASPIRIN 81 MG PO SCH (08:25)
[2021-01-01] MEDS: CYANOCOBALAMIN 500 MCG TAB PO SCH (08:25)
[2021-01-01] MEDS: ASCORBIC ACID 500 MG TAB PO SCH (08:25)
[2021-01-01] MEDS: LOSARTAN 50 MG TAB PO SCH (08:26)
[2021-01-01] MEDS: TAMSULOSIN 0.4 MG CAP.ER.24H PO SCH (08:26)
[2021-01-01] MEDS: METOPROLOL SUCCINATE (ER) 25 MG TAB.ER.24H PO SCH ×2 (08:26→20:16)
[2021-01-01] MEDS: SODIUM BICARBONATE TAB 650 MG TAB PO SCH (08:26)
[2021-01-01] MEDS: ISOSORBIDE MONONITRATE ER 30 MG TAB.ER.24H PO SCH (08:27)
[2021-01-01] MEDS: AMIODARONE 200 MG TAB PO SCH (08:27)
[2021-01-01 10:23] LABS: Basophils # (A) 0.03 X 10*3/uL (0.00-0.10); Basophils % (A) 0.7 %; Eosinophils # (A) 0.38 X 10*3/uL (0.04-0.35); Eosinophils % (A) 8.9 %; HCT 35.3 % (39.6-50.0); HGB 11.4 g/dL (13.0-17.0); Lymphocytes # (A) 0.69 X 10*3/uL (0.90-5.00); Lymphocytes % (A) 16.2 %; MCH 32.6 pg (27.0-32.0); MCHC 32.3 g/dL (32.0-37.0); MCV 100.9 fL (80.0-97.0); Mean Platelet Volume 9.7 fL (9.5-12.2); Monocytes # (A) 0.59 X 10*3/uL (0.20-1.00); Monocytes % (A) 13.9 %; Neutrophils # (A) 2.53 X 10*3/uL (1.80-7.70); Neutrophils % (A) 59.6 %; Platelet Count 125 X 10*3/uL (140-440); WBC 4.25 X 10*3/uL (4.50-10.00)
[2021-01-01 10:40] LABS: African American GFR (CKD) 41.7 (60.0-200.0); Anion Gap 8.8 mmol/L (4.00-12.00); BUN/Creat Ratio 14.12 Ratio (12.00-20.00); Calcium 8.8 mg/dL (8.7-10.3); Carbon Dioxide 25.2 mmol/L (21.6-31.8); Potassium 4.5 mmol/L (3.5-5.5)
[2021-01-01] MEDS: hydrALAZINE HCL 50 MG TAB PO SCH ×3 (10:51→21:08)
[2021-01-01 11:49] LABS: Glucose,Whole Blood 147 mg/dL (75-99)
[2021-01-01] MEDS: INSULIN ASPART (NovoLOG) 100 UNIT/ML VIAL SQ SCH ×3 (12:40→21:08)
--- NOTE | 2021-01-01 14:27 | PN ---
PROGRESS NOTE DATE OF SERVICE: 01/01/2021 REASON FOR FOLLOW UP: 1. Positive blood culture. 2. Question of pneumonia. INTERVAL HISTORY: The patient is afebrile. The patient is breathing comfortably currently on room air. The patient denies any chest pain. Minimal cough. No sputum production. No abdominal pain. No diarrhea. PHYSICAL EXAMINATION: Blood pressure 155/82 with a pulse of 70. Temperature 98, he is 94% on room air. General description is an elderly male up in the chair in no distress. Respiratory system: Unlabored breathing, decreased breath sounds in the base, with no wheeze. Heart S1, S2. Regular rate and rhythm. Abdomen soft, no tenderness. LABS: Hemoglobin 9.4, white count 4.2, BUN of 24, creatinine is 1.7. Blood culture with micrococcus species. Blood culture repeat has been negative. DIAGNOSTIC IMPRESSION AND PLAN: 1. Patient with a positive blood culture with micrococcus species likely contaminant. Patient has no clinical disease to go along with it. No fever or elevated white count. Repeat blood culture negative. No need for antibiotic for the same. 2. Patient not behaving as pneumonia. We will monitor the patient closely off antibiotics. His questions and concerns were answered. MMODL / IJN: [id number] /
--- NOTE | 2021-01-01 15:32 | P.PN ---
Progress Note - Text Progress Note Date: 01/01/21 At discharge patient will require nebulizer with duo nebs 4 times a day and every 4 hours when necessary related to recent pneumonia, suspected recurring pneumonia with left lower lobe nodular infiltrate, extensive CAD, chronic kidney disease and multiple other medical issues in an elderly patient with loss of right eye vision. The impression and plan of care has been dictated as directed. : I performed a history and examination of this patient, discussed the same with the dictator. I agree with the dictator's note ,documented as a scribe. Any additional findings or plans will be noted.
--- NOTE | 2021-01-01 16:10 | P.DS ---
Providers Date of admission: 12/31/20 08:22 Expected date of discharge: 01/02/21 Attending physician: Tyson Rascon Consults: 12/30/20 08:06 Consult Physician Routine Consulting Provider: Thaddeus Escoto Consult Reason/Comments: left lung density Do you want consulting provider notified?: Yes 12/30/20 17:53 Consult Physician Routine Consulting Provider: Salvatore Gross Consult Reason/Comments: gram positive cocci and clusters in blood culture Do you want consulting provider notified?: Yes Primary care physician: Tyson Rascon [facility] Course: Final Diagnoses: Left lower lobe lung base loculated density, possible recurrent community acquired pneumonia, possible neoplastic disease. Further follow-up recommended outpatient. 8 mm nodule left lung apex, possibly associated with first rib Recent sinus infection Possible Bacteremia, cultures reporting micrococcus species, contaminant as per ID. Acute on Chronic kidney disease stage III with baseline creatinine level around 1.6 History of colon CA Coronary Artery disease, history of CABG,AICD placement Diabetes type 2 [id number]-[id number] Hypertension Hyperlipidemia History of colon cancer Hard of hearing Right eye loss of vision Anxiety/depression Hospital course:This is an 85-year-old gentleman presented with generalized weakness, sore throat, cough, recent sinus infection completed antibiotic therapy. Reports occasional productive cough, yellow sputum. Denies chest pain, palpitations or shortness of breath. Maintaining O2 sats in the 90s on room air. Continues on IV antibiotics of Rocephin. Good diet intake, consuming 100% with no nausea vomiting or diarrhea.Prior to admission, Chest CT 12/25/2020 reported a new 2.1 x 1.4 cm lobulated density along the left lower lung base, favor inflammatory change, or neoplastic disease, stable cardiomegaly with basilar atelectasis, 8 mm nodule adjacent to the anterior margin on the left first rib within the left upper lobe not seen with certainty on prior exam, though present on 02/01/2014 exam. Chest x-ray of yesterday reported COPD. Afebrile. Receiving gentle IV fluid hydration, renal function improving, BUN 27, creatinine 1.4, baseline. Blood sugars controlled. Hypertensive. 2020 last night blood cultures reporting gram positive cocci in clusters. Vancomycin initiated with repeat blood culture ordered. BMP pending. Afebrile. Maintaining O2 sats in the 90s on 2 L nasal cannula. Denies chest pain, palpitations or increasing shortness of breath. Good diet intake, denies nausea vomiting or diarrhea. Denies abdominal pain. Evaluated by PT with no functional limits detected, using a rolling walker. Significant clinical improvement. Blood culture finalized, reporting micrococcus species, contaminant as per ID. Cleared by pulmonary for discharge- recommending DC on 5 days of Augmentin. Patient will be discharged home today in a stable condition with guarded prognosis. At discharge patient will require nebulizer with duo nebs 4 times a day and every 4 hours when necessary related to recent pneumonia, suspected recurring pneumonia with left lower lobe nodular infiltrate, extensive CAD, chronic kidney disease and multiple other medical issues in an elderly patient with loss of right eye vision. The impression and plan of care has been dictated as directed. : I performed a history and examination of this patient, discussed the same with the dictator. I agree with the dictator's note ,documented as a scribe. Any additional findings or plans will be noted. Patient Condition at Discharge: Stable Plan - Discharge Summary Discharge Rx Participant: No New Discharge Prescriptions: New hydrALAZINE HCL [Apresoline] 50 mg PO TID #90 tab Amoxicillin/Potassium Clav [Augmentin 500-125 Tablet] 1 tab PO BID 5 Days #10 tab Ipratropium-Albuterol Nebulize [Duoneb 0.5 mg-3 mg/3 ml Soln] 3 ml INHALATION RT-QID #120 ml Continue Fenofibrate Nanocrystallized [Tricor] 145 mg PO DAILY Isosorbide Mononitrate ER [Imdur] 30 mg PO DAILY #30 tab.er.24h Pantoprazole [Protonix] 40 mg PO AC-BRKFST #30 tablet. Atorvastatin [Lipitor] 40 mg PO HS Sodium Bicarbonate Tab 650 mg PO DAILY Metoprolol Succinate (ER) [Toprol XL] 25 mg PO BID Tamsulosin HCl [Flomax] 0.4 mg PO DAILY Losartan Potassium 50 mg PO DAILY Amiodarone [Cordarone] 200 mg PO DAILY Aspirin EC [Ecotrin Low Dose] 81 mg PO DAILY Repaglinide [Prandin] 0.5 mg PO BID Ascorbic Acid [Vitamin C] 500 mg PO DAILY Cyanocobalamin [Vitamin B-12] 500 mcg PO DAILY Discharge Medication List Fenofibrate Nanocrystallized [Tricor] 145 mg PO DAILY 04/03/15 [History] Isosorbide Mononitrate ER [Imdur] 30 mg PO DAILY #30 tab.er.24h 01/30/18 [Rx] Pantoprazole [Protonix] 40 mg PO AC-BRKFST #30 tablet.dr 01/30/18 [Rx] Atorvastatin [Lipitor] 40 mg PO HS 10/30/18 [History] Losartan Potassium 50 mg PO DAILY 11/15/20 [History] Sodium Bicarbonate Tab 650 mg PO DAILY 11/15/20 [History] Amiodarone [Cordarone] 200 mg PO DAILY 12/27/20 [History] Ascorbic Acid [Vitamin C] 500 mg PO DAILY 12/27/20 [History] Aspirin EC [Ecotrin Low Dose] 81 mg PO DAILY 12/27/20 [History] Cyanocobalamin [Vitamin B-12] 500 mcg PO DAILY 12/27/20 [History] Metoprolol Succinate (ER) [Toprol XL] 25 mg PO BID 12/27/20 [History] Repaglinide [Prandin] 0.5 mg PO BID 12/27/20 [History] Tamsulosin HCl [Flomax] 0.4 mg PO DAILY 12/27/20 [History] Amoxicillin/Potassium Clav [Augmentin 500-125 Tablet] 1 tab PO BID 5 Days #10 tab 01/01/21 [Rx] Ipratropium-Albuterol Nebulize [Duoneb 0.5 mg-3 mg/3 ml Soln] 3 ml INHALATION RT-QID #120 ml 01/01/21 [Rx] hydrALAZINE HCL [Apresoline] 50 mg PO TID #90 tab 01/01/21 [Rx] Follow up Appointment(s)/Referral(s): Tyson Rascon DO [Primary Care Provider] - 01/06/21 4:00 pm Thaddeus Escoto MD [STAFF PHYSICIAN] - 2 Weeks (01/20/21 at 130 pm) Ambulatory/Diagnostic Orders: Complete Blood Count w/diff [LAB.AMB] Time Frame: 3 Days, Location: None Selected Patient Instructions/Handouts: Viral Pneumonia (GEN), Community Acquired Pneumonia (GEN) Activity/Diet/Wound Care/Special Instructions: Pending final DC recommendations/antibiotics and clearance per ID and pulmonary. Nebulizer and DuoNeb Rx down at [facility]-
--- NOTE | 2021-01-01 16:38 | P.PN ---
Subjective Progress Note Date: 01/01/21 Principal diagnosis: Left lower lobe nodular infiltrate likely pneumonia however neoplastic lesion cannot be excluded, Recent pneumonia Generalized weakness Chronic kidney disease stage III Coronary artery disease status post CABG Hypertension hypertensive cardiovascular disease Dyslipidemia Colon cancer 01/01/2021, patient seen eval examined during the rounds labs reviewed medications reviewed care plan discussed, IV antibiotics can be discontinued patient can be started on oral antibiotics and follow-up as outpatient setting repeat computed tomography scan was performed from pulmonary standpoint patient go home on oral Augmentin and follow-up as outpatient 12/31/2020, patient seen eval examined during the rounds labs reviewed medications reviewed care plan discussed, patient remained short of breath the severity appears to have improved, patient remains on antibiotics with optimal medical therapy, remains afebrile with stable oxygen saturation 95% on room air, blood pressure within normal limit, blood culture came back positive for micrococcus, ID service has been following, This is a pleasant 85-year-old morbidly obese male seen and evaluated examined on 6 floor, patient admitted into the hospital with generalized weakness so toward symptoms started about 2-3 days ago developed progressive initially however symptoms appears to be improving, patient has been given antibiotics as outpatient Zithromax symptoms did not improve came back into the hospital, possibly medical history significant for coronary artery disease and diabetes mellitus dyslipidemia hypertension hypertensive cardiovascular disease, on arrival patient noted to be afebrile with stable hemodynamics oxygen saturation is 96% chest x-ray suggestive of COPD bilateral pleural thickening has been noted, chest x-ray prior on November 30 essentially unremarkable, computed tomography scan performed on the December 25 noted to have a noted regular consolidation of left lower lobe 2.11.4 cm in size, 8 mm nodule in the left lung attacks maybe noted as well, nodular appearance in the left lower lobe appeared to be inflammatory, patient has been antibiotics x-rays are unremarkable Objective - Vital Signs Vital signs: Vital Signs Temp 97.5 F L 01/01/21 14:24 Pulse 70 01/01/21 16:23 Resp 18 01/01/21 14:24 BP 106/53 01/01/21 14:24 Pulse Ox 93 L 01/01/21 14:24 Intake & Output 12/31/20 01/01/21 01/01/21 18:59 06:59 18:59 Intake Total 400 Balance 400 Intake: Intake, IV Titration 400 Amount Sodium Chloride 0.9% 1, 400 000 ml @ 50 mls/hr IV . Q20H MICHAEL Rx#:[id number] Other: Voiding Method Toilet Urinal # Voids 1 2 2 - Exam - Constitutional General appearance: disheveled, morbidly obese, no acute distress - EENT Eyes: PERRLA Ears: bilateral: normal - Neck Neck: normal ROM Carotids: bilateral: upstroke normal Thyroid: bilateral: normal size - Respiratory Respiratory: bilateral: diminished - Cardiovascular Rhythm: regular Heart sounds: normal: S1, S2 - Gastrointestinal General gastrointestinal: distended, normal bowel sounds Localized gastrointestinal: mass: diffuse - Integumentary Integumentary: normal turgor - Neurologic Neurologic: CNII-XII intact - Musculoskeletal Musculoskeletal: gait normal, generalized weakness, strength equal bilaterally - Psychiatric Psychiatric: A&O x's 3, appropriate affect, intact judgment & insight - Labs CBC & Chem 7: 01/01/21 04:54 01/01/21 04:54 Labs: Abnormal Lab Results - Last 24 Hours (Table) 12/31/20 12/31/20 12/31/20 Range/Units 17:07 17:17 20:24 WBC (4.50-10.00) X 10*3/uL RBC (4.40-5.60) X 10*6/uL Hgb (13.0-17.0) g/dL Hct (39.6-50.0) % MCV (80.0-97.0) fL MCH (27.0-32.0) pg RDW (11.5-14.5) % Plt Count (140-440) X 10*3/uL Lymphocytes # (0.90-5.00) X 10*3/uL Eosinophils # (0.04-0.35) X 10*3/uL BUN 25 H (9-20) mg/dL Creatinine 1.47 H (0.66-1.25) mg/dL Est GFR (CKD-EPI)AfAm (60.0-200.0) Est GFR (CKD-EPI)NonAf (60.0-200.0) Glucose 147 H (74-99) mg/dL POC Glucose (mg/dL) 139 H 138 H (75-99) mg/dL 01/01/21 01/01/21 01/01/21 Range/Units 04:54 04:54 07:13 WBC 4.25 L (4.50-10.00) X 10*3/uL RBC 3.50 L (4.40-5.60) X 10*6/uL Hgb 11.4 L (13.0-17.0) g/dL Hct 35.3 L (39.6-50.0) % MCV 100.9 H (80.0-97.0) fL MCH 32.6 H (27.0-32.0) pg RDW 15.0 H (11.5-14.5) % Plt Count 125 L (140-440) X 10*3/uL Lymphocytes # 0.69 L (0.90-5.00) X 10*3/uL Eosinophils # 0.38 H (0.04-0.35) X 10*3/uL BUN (9-20) mg/dL Creatinine 1.7 H (0.66-1.25) mg/dL Est GFR (CKD-EPI)AfAm 41.7 L (60.0-200.0) Est GFR (CKD-EPI)NonAf 36.0 L (60.0-200.0) Glucose (74-99) mg/dL POC Glucose (mg/dL) 110 H (75-99) mg/dL 01/01/21 Range/Units 11:46 WBC (4.50-10.00) X 10*3/uL RBC (4.40-5.60) X 10*6/uL Hgb (13.0-17.0) g/dL Hct (39.6-50.0) % MCV (80.0-97.0) fL MCH (27.0-32.0) pg RDW (11.5-14.5) % Plt Count (140-440) X 10*3/uL Lymphocytes # (0.90-5.00) X 10*3/uL Eosinophils # (0.04-0.35) X 10*3/uL BUN (9-20) mg/dL Creatinine (0.66-1.25) mg/dL Est GFR (CKD-EPI)AfAm (60.0-200.0) Est GFR (CKD-EPI)NonAf (60.0-200.0) Glucose (74-99) mg/dL POC Glucose (mg/dL) 147 H (75-99) mg/dL Microbiology - Last 24 Hours (Table) 12/29/20 10:24 Blood Culture - Preliminary Blood No Growth after 72 hours 12/30/20 18:17 Blood Culture - Preliminary Blood No Growth after 24 hours 12/29/20 10:24 Blood Culture Gram Stain - Final Blood Blood Culture - Final Micrococcus species Assessment and Plan Assessment: Left lower lobe nodular infiltrate likely pneumonia however neoplastic lesion cannot be excluded, Bacteremia Recent pneumonia Generalized weakness Chronic kidney disease stage III Coronary artery disease status post CABG Hypertension hypertensive cardiovascular disease Dyslipidemia Colon cancer Plan: Continue antibiotics, can be switched to oral Augmentin 500 mg 2 times a day for another 5 days for pneumonia Continue deep breathing exercise incentive spirometry Follow clinical course closely we'll follow up on outpatient setting likely recommend short-term follow-up CT or PET scan Further plan of care as per clinical response of the patient Time with Patient: Greater than 30
[2021-01-01 17:21] LABS: Glucose,Whole Blood 97 mg/dL (75-99)
[2021-01-01] MEDS: ATORVASTATIN 40 MG TAB PO SCH (20:16)
[2021-01-01 20:23] LABS: Glucose,Whole Blood 133 mg/dL (75-99)
[2021-01-02 02:00] VITALS: TEMP 97.8
[2021-01-02 07:01] LABS: Glucose,Whole Blood 116 mg/dL (75-99)
[2021-01-02 07:36] VITALS: BP 160/84; RESP 21
[2021-01-02] MEDS: IPRATROPIUM-ALBUTEROL 3 ML NEB INHALATION SCH ×2 (08:06→11:44)
[2021-01-02] MEDS: REPAGLINIDE 1 MG TAB PO SCH (09:03)
[2021-01-02] MEDS: INSULIN ASPART (NovoLOG) 100 UNIT/ML VIAL SQ SCH ×2 (09:04→14:17)
[2021-01-02] MEDS: HEPARIN SODIUM,PORCINE/PF 5,000 UNIT/0.5 ML SYRINGE SQ SCH (09:04)
[2021-01-02] MEDS: PANTOPRAZOLE 40 MG TABLET PO SCH (09:05)
[2021-01-02] MEDS: ISOSORBIDE MONONITRATE ER 30 MG TAB.ER.24H PO SCH (09:06)
[2021-01-02] MEDS: CYANOCOBALAMIN 500 MCG TAB PO SCH (09:06)
[2021-01-02] MEDS: LOSARTAN 50 MG TAB PO SCH (09:06)
[2021-01-02] MEDS: ASCORBIC ACID 500 MG TAB PO SCH (09:07)
[2021-01-02] MEDS: METOPROLOL SUCCINATE (ER) 25 MG TAB.ER.24H PO SCH (09:07)
[2021-01-02] MEDS: SODIUM BICARBONATE TAB 650 MG TAB PO SCH (09:07)
[2021-01-02] MEDS: ASPIRIN 81 MG PO SCH (09:07)
[2021-01-02] MEDS: FENOFIBRATE 160 MG TAB PO SCH (09:08)
[2021-01-02] MEDS: TAMSULOSIN 0.4 MG CAP.ER.24H PO SCH (09:08)
[2021-01-02] MEDS: AMIODARONE 200 MG TAB PO SCH (09:08)
[2021-01-02] MEDS: hydrALAZINE HCL 50 MG TAB PO SCH (09:09)
[2021-01-02 11:43] LABS: Glucose,Whole Blood 119 mg/dL (75-99)
--- NOTE | 2021-01-02 13:43 | PN ---
PROGRESS NOTE DATE OF SERVICE: 01/02/2021. REASON FOR FOLLOWUP: 1. Positive blood culture . 2. Tracheobronchitis. INTERVAL HISTORY: The patient is afebrile. The patient is breathing comfortably. Denies having any chest pain, shortness of breath. Occasional cough. Minimal sputum. No abdominal pain or diarrhea. PHYSICAL EXAMINATION: Blood pressure 150/84, pulse 62, temp 97.8. He is 91% on room air. General description is a middle-aged male lying in bed in no distress. Respiratory system: Unlabored breathing, decreased intensity of breath sounds in the base, with no wheeze. Heart S1, S2. Regular rate. Abdomen soft, no tenderness. LABS: Repeat blood pressure has been negative. DIAGNOSTIC IMPRESSION: 1. Patient with positive blood culture with micrococcus species, likely contaminant. Patient has no clinical symptoms to go along with it. Repeat blood culture remain negative. No need for any therapy for the same. 2. Patient with shortness of breath, cough, possible chronic obstructive pulmonary disease, tracheobronchitis. Clinically not behaving as pneumonia. No need for antibiotic on discharge. MMODL / IJN: [id number] /
[2021-01-02 14:08] VITALS: PULSE 73
== END 2021-01-02 14:28 | disposition home or self-care (01) | DRG 194 ==
LOC: EC 09:55 → 6NMEDSUR 12:12 → OBSVTOIN 12-31 08:22
PROVIDERS: ADMIT Family Medicine; ATTEND Family Medicine
DX: J18.9 Pneumonia, unspecified organism (principal); J44.0 Chronic obstructive pulmonary disease with (acute) lower respiratory infection; J98.11 Atelectasis; N17.9 Acute kidney failure, unspecified; R78.81 Bacteremia; I25.10 Atherosclerotic heart disease of native coronary artery without angina pectoris; E11.22 Type 2 diabetes mellitus with diabetic chronic kidney disease; I12.9 Hypertensive chronic kidney disease with stage 1 through stage 4 chronic kidney disease, or unspecified chronic kidney disease; N18.30 Chronic kidney disease, stage 3 unspecified; E66.01 Morbid (severe) obesity due to excess calories; J98.4 Other disorders of lung; J40 Bronchitis, not specified as acute or chronic; R53.1 Weakness; H91.90 Unspecified hearing loss, unspecified ear; E78.5 Hyperlipidemia, unspecified; F32.9 Major depressive disorder, single episode, unspecified; Z20.822 Contact with and (suspected) exposure to COVID-19; F41.9 Anxiety disorder, unspecified; H54.61 Unqualified visual loss, right eye, normal vision left eye; Y95 Nosocomial condition; Z68.33 Body mass index [BMI] 33.0-33.9, adult; Z79.82 Long term (current) use of aspirin; Z79.899 Other long term (current) drug therapy; Z85.038 Personal history of other malignant neoplasm of large intestine; Z87.01 Personal history of pneumonia (recurrent); Z95.1 Presence of aortocoronary bypass graft; Z95.810 Presence of automatic (implantable) cardiac defibrillator; Z87.19 Personal history of other diseases of the digestive system
CPT/HCPCS: 36415; 71046; 80048; 80053; 81001; 83605; 83735; 84484; 85025; 85610; 85730; 87040; 87635; 93005; 94640; 96374; 99285

== ENCOUNTER 2021-01-07 10:08 | Emergency (ER) | payer MEDICARE, BC ==
--- NOTE | 2021-01-07 11:16 | ED ---
General Adult HPI - General Source: RN notes reviewed <Gareth Weems P - Last Filed: 01/07/21 11:18> <Chin Nguyen - Last Filed: 01/07/21 15:19> - General Stated complaint: Revisit/Pneumonia - History of Present Illness Initial comments: Patient was seen for advanced triage purposes: 85-year-old male with a past medical history of CAD, diabetes mellitus, colon cancer, hyperlipidemia, hypertension presents to the emergency room for not feeling well. Patient states he is feeling weak. States that he is feeling sick with a sore throat and cough. Patient states she has recently had pneumonia. Patient states he was just admitted to the hospital and was discharged home a few days ago but he started to feel ill again. Patient is concerned he could have a variant of coronavirus.patient was immunized for coronavirus in July. Patient has no other complaints at this time including shortness of breath, chest pain, abdominal pain, nausea or vomiting, headache, or visual changes. (Gareth Weems) - Related Data Home Medications Medication Instructions Recorded Confirmed Fenofibrate Nanocrystallized 145 mg PO DAILY 04/03/15 12/29/20 [Tricor] Atorvastatin [Lipitor] 40 mg PO HS 10/30/18 12/29/20 Losartan Potassium 50 mg PO DAILY 11/15/20 12/29/20 Sodium Bicarbonate Tab 650 mg PO DAILY 11/15/20 12/29/20 Amiodarone [Cordarone] 200 mg PO DAILY 12/27/20 12/29/20 Ascorbic Acid [Vitamin C] 500 mg PO DAILY 12/27/20 12/29/20 Aspirin EC [Ecotrin Low Dose] 81 mg PO DAILY 12/27/20 12/29/20 Cyanocobalamin [Vitamin B-12] 500 mcg PO DAILY 12/27/20 12/29/20 Metoprolol Succinate (ER) [Toprol 25 mg PO BID 12/27/20 12/29/20 XL] Repaglinide [Prandin] 0.5 mg PO BID 12/27/20 12/29/20 Tamsulosin HCl [Flomax] 0.4 mg PO DAILY 12/27/20 12/29/20 Previous Rx's Medication Instructions Recorded Isosorbide Mononitrate ER [Imdur] 30 mg PO DAILY #30 tab.er.24h 01/30/18 Pantoprazole [Protonix] 40 mg PO FRANKLYNKFSDariel #30 tablet. 01/30/18 Amoxicillin/Potassium Clav 1 tab PO BID 5 Days #10 tab 01/01/21 [Augmentin 500-125 Tablet] hydrALAZINE HCL [Apresoline] 50 mg PO TID #90 tab 01/01/21 Ipratropium-Albuterol Nebulize 3 ml INHALATION QID #120 neb 01/02/21 [Duoneb 0.5 mg-3 mg/3 ml Soln] Allergies Allergy/AdvReac Type Severity Reaction Status Date / Time No Known Allergies Allergy Verified 01/07/21 11:20 Review of Systems ROS Other: All systems not noted in ROS Statement are negative. <Gareth Weems P - Last Filed: 01/07/21 11:18> ROS Other: All systems not noted in ROS Statement are negative. <Chin Nguyen - Last Filed: 01/07/21 15:19> ROS Statement: Those systems with pertinent positive or pertinent negative responses have been documented in the HPI. 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 lives in an assisted living facility. pt is independent and still drives. Smoking Status: Never smoker Past Alcohol Use History: None Reported Past Drug Use History: None Reported - Past Family History Mother Family Medical History: No Reported History <Gareth Weems P - Last Filed: 01/07/21 11:18> Course Vital Signs 01/07/21 01/07/21 11:16 13:36 Temperature 97.9 F Pulse Rate 65 Respiratory 19 18 Rate Blood Pressure 172/87 O2 Sat by Pulse 96 Oximetry Medical Decision Making - Lab Data Result diagrams: 01/07/21 13:53 01/07/21 13:53 <Chin Nguyen - Last Filed: 01/07/21 15:19> - Medical Decision Making 85-year-old male currently being treated for pneumonia as an outpatient presents with chills, sore throat. Patient has stable vitals. Afebrile. Chest x-ray is clear of all no large focal pneumonia. Patient has normal white blood cell count, stable creatinine, normal electrolytes, I did perform a rapid strep, and repeat coronavirus testing which was negative, urinalysis negative for infection. I did discuss case with Dr. Rascon who is familiar with the patient was on in the office yesterday and plans to see him in 2 days. Patient will continue his antibiotics as an outpatient, return parameters discussed. (Chin Nguyen) - Lab Data Lab Results 01/07/21 01/07/21 01/07/21 Range/Units 13:53 13:53 13:53 WBC 5.4 (3.8-10.6) k/uL RBC 4.25 L (4.30-5.90) m/uL Hgb 14.0 (13.0-17.5) gm/dL Hct 42.5 (39.0-53.0) % MCV 100.0 (80.0-100.0) fL MCH 32.9 (25.0-35.0) pg MCHC 32.9 (31.0-37.0) g/dL RDW 14.3 (11.5-15.5) % Plt Count 141 L (150-450) k/uL MPV 7.4 Neutrophils % 65 % Lymphocytes % 15 % Monocytes % 8 % Eosinophils % 7 % Basophils % 1 % Neutrophils # 3.5 (1.3-7.7) k/uL Lymphocytes # 0.8 L (1.0-4.8) k/uL Monocytes # 0.4 (0-1.0) k/uL Eosinophils # 0.4 (0-0.7) k/uL Basophils # 0.1 (0-0.2) k/uL Macrocytosis Slight Sodium (137-145) mmol/L Potassium (3.5-5.1) mmol/L Chloride (98-107) mmol/L Carbon Dioxide (22-30) mmol/L Anion Gap mmol/L BUN (9-20) mg/dL Creatinine (0.66-1.25) mg/dL Est GFR (CKD-EPI)AfAm (>60 ml/min/1.73 sqM) Est GFR (CKD-EPI)NonAf (>60 ml/min/1.73 sqM) Glucose (74-99) mg/dL Plasma Lactic Acid Jese (0.7-2.0) mmol/L Calcium (8.4-10.2) mg/dL Total Bilirubin (0.2-1.3) mg/dL AST (17-59) U/L ALT (4-49) U/L Alkaline Phosphatase (38-126) U/L Total Protein (6.3-8.2) g/dL Albumin (3.5-5.0) g/dL Urine Color Yellow Urine Appearance Clear (Clear) Urine pH 6.5 (5.0-8.0) Ur Specific [place] 1.017 (1.001-1.035) Urine Protein 2+ H (Negative) Urine Glucose (UA) 1+ H (Negative) Urine Ketones Negative (Negative) Urine Blood Negative (Negative) Urine Nitrite Negative (Negative) Urine Bilirubin Negative (Negative) Urine Urobilinogen <2.0 (<2.0) mg/dL Ur Leukocyte Esterase Negative (Negative) Urine RBC <1 (0-5) /hpf Ur Squamous Epith Cells <1 (0-4) /hpf Urine Mucus Rare H (None) /hpf Coronavirus (PCR) Not Detected (Not Detectd) Group A Strep Rapid (Negative) 01/07/21 01/07/21 01/07/21 Range/Units 13:53 13:53 13:53 WBC (3.8-10.6) k/uL RBC (4.30-5.90) m/uL Hgb (13.0-17.5) gm/dL Hct (39.0-53.0) % MCV (80.0-100.0) fL MCH (25.0-35.0) pg MCHC (31.0-37.0) g/dL RDW (11.5-15.5) % Plt Count (150-450) k/uL MPV Neutrophils % % Lymphocytes % % Monocytes % % Eosinophils % % Basophils % % Neutrophils # (1.3-7.7) k/uL Lymphocytes # (1.0-4.8) k/uL Monocytes # (0-1.0) k/uL Eosinophils # (0-0.7) k/uL Basophils # (0-0.2) k/uL Macrocytosis Sodium 139 (137-145) mmol/L Potassium 4.0 (3.5-5.1) mmol/L Chloride 104 (98-107) mmol/L Carbon Dioxide 26 (22-30) mmol/L Anion Gap 9 mmol/L BUN 25 H (9-20) mg/dL Creatinine 1.46 H (0.66-1.25) mg/dL Est GFR (CKD-EPI)AfAm 50 (>60 ml/min/1.73 sqM) Est GFR (CKD-EPI)NonAf 43 (>60 ml/min/1.73 sqM) Glucose 116 H (74-99) mg/dL Plasma Lactic Acid Jese 1.6 (0.7-2.0) mmol/L Calcium 9.6 (8.4-10.2) mg/dL Total Bilirubin 0.8 (0.2-1.3) mg/dL AST 40 (17-59) U/L ALT 39 (4-49) U/L Alkaline Phosphatase 120 (38-126) U/L Total Protein 7.2 (6.3-8.2) g/dL Albumin 4.2 (3.5-5.0) g/dL Urine Color Urine Appearance (Clear) Urine pH (5.0-8.0) Ur Specific [place] (1.001-1.035) Urine Protein (Negative) Urine Glucose (UA) (Negative) Urine Ketones (Negative) Urine Blood (Negative) Urine Nitrite (Negative) Urine Bilirubin (Negative) Urine Urobilinogen (<2.0) mg/dL Ur Leukocyte Esterase (Negative) Urine RBC (0-5) /hpf Ur Squamous Epith Cells (0-4) /hpf Urine Mucus (None) /hpf Coronavirus (PCR) (Not Detectd) Group A Strep Rapid Negative (Negative) Disposition <Gareth Weems P - Last Filed: 01/07/21 11:18> Is patient prescribed a controlled substance at d/c from ED?: No Time of Disposition: 15:19 <Chin Nguyen - Last Filed: 01/07/21 15:19> Clinical Impression: Cough, CAP (community acquired pneumonia) Disposition: HOME SELF-CARE Condition: Fair Instructions (If sedation given, give patient instructions): Upper Respiratory Infection (ED) Referrals: Tyson Rascon DO [Primary Care Provider] - 1-2 days
[2021-01-07 11:19] VITALS: BP 172/87; PULSE 65; TEMP 97.9
[2021-01-07 13:38] VITALS: RESP 18
[2021-01-07] MEDS ORDERED: SODIUM CHLORIDE 0.9% 500 ML 500 ML IV STA (13:38)
[2021-01-07] MEDS ORDERED: ACETAMINOPHEN TAB 500 MG TAB PO STA (13:38)
[2021-01-07 14:07] LABS: Basophils # (A) 0.1 k/uL (0-0.2); Basophils % (A) 1 %; Eosinophils # (A) 0.4 k/uL (0-0.7); Eosinophils % (A) 7 %; HCT 42.5 % (39.0-53.0); Lymphocytes # (A) 0.8 k/uL (1.0-4.8); Lymphocytes % (A) 15 %; MCH 32.9 pg (25.0-35.0); MCHC 32.9 g/dL (31.0-37.0); Macrocytosis Slight; Mean Platelet Volume 7.4; Monocytes # (A) 0.4 k/uL (0-1.0); Monocytes % (A) 8 %; Neutrophils # (A) 3.5 k/uL (1.3-7.7); Neutrophils % (A) 65 %; Platelet Count 141 k/uL (150-450); RBC 4.25 m/uL (4.30-5.90); RDW 14.3 % (11.5-15.5); WBC 5.4 k/uL (3.8-10.6)
--- NOTE | 2021-01-07 14:12 | XR ---
EXAMINATION TYPE: XR chest 2V DATE OF EXAM: 01/07/2021 COMPARISON: 12/29/2020 TECHNIQUE: PA and lateral views submitted. HISTORY: Cough FINDINGS: Bilateral pleural thickening. Heart size normal. Cardiac device and postoperative changes. Arthropath y of the shoulders. There is no acute consolidation. IMPRESSION: 1. COPD with bilateral pleural thickening stable from prior exam.
[2021-01-07 14:17] LABS: Albumin 4.2 g/dL (3.5-5.0); Calcium 9.6 mg/dL (8.4-10.2); Total Bilirubin 0.8 mg/dL (0.2-1.3); Total Protein 7.2 g/dL (6.3-8.2)
[2021-01-07 14:38] LABS: Appearance,Urine Clear (Clear); Bilirubin,Urine Negative (Negative); Blood,Urine Negative (Negative); Color,Urine Yellow; Glucose,Urine (UA) 1+ (Negative); Ketones,Urine Negative (Negative); Leukocyte Esterase,Urine Negative (Negative); Nitrite,Urine Negative (Negative); PH, Urine 6.5 (5.0-8.0); Protein,Urine 2+ (Negative); RBC,Urine <1 /hpf (0-5); Specific Gravity,Urine 1.017 (1.001-1.035); Squamous Epithelial Cell,Urine <1 /hpf (0-4); Urobilinogen,Urine <2.0 mg/dL (<2.0)
[2021-01-07 14:39] LABS: Mucus,Urine Rare /hpf
== END 2021-01-07 15:41 | disposition home or self-care (01) ==
LOC: EC 10:08
DX: J18.9 Pneumonia, unspecified organism (principal); I25.10 Atherosclerotic heart disease of native coronary artery without angina pectoris; E11.9 Type 2 diabetes mellitus without complications; E78.5 Hyperlipidemia, unspecified; I10 Essential (primary) hypertension; F41.9 Anxiety disorder, unspecified; F32.9 Major depressive disorder, single episode, unspecified; Z95.0 Presence of cardiac pacemaker; Z79.82 Long term (current) use of aspirin; Z85.038 Personal history of other malignant neoplasm of large intestine; Z20.822 Contact with and (suspected) exposure to COVID-19
CPT/HCPCS: 36415; 71046; 80053; 81001; 83605; 85025; 87040; 87081; 87430; 87635; 96360; 99285

== ENCOUNTER → 2021-01-31 | Outpatient (CLI) | payer MEDICARE, BC ==
--- NOTE | 2021-01-31 12:30 | PE ---
Nuclear medicine PET/CT HISTORY:R91.1 Pulmonary Nodule Patient received 10.7 mCi F-18 FDG intravenously in delayed scanning was performed from the skull bas e to the mid thighs. A localization and attenuation correction CT scan was performed, correlation to prior CT chest 12/25/2020, 09/22/2019 Chest and neck: There is no supraclavicular or cervical adenopathy, no mediastinal, axillar, or hilar adenopathy. Patient is post median sternotomy, there are leads in the right atrium and ventricle. Ex tensive coronary artery calcification is present, there is metallic density along the aortic valves. No pleural or pericardial effusion. Interstitial changes are present especially towards the lung base s. There is no suspicious uptake or evident lung mass, some basilar scarring is noted. ABDOMEN: There is no suspicious uptake. No retroperitoneal adenopathy, no evident adrenal mass. No li marilyn mass or ascites. There is postop change to the anterior abdominal wall. Postop changes are noted to the sigmoid colon. Right inguinal hernia suspected which contains fat. 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 IMPRESSION: No suspicious uptake is evident.
== END | disposition home or self-care (01) ==
LOC: RADPETMAIN 07:07
PROVIDERS: ATTEND Internal Medicine Sleep Medicine
DX: R91.1 Solitary pulmonary nodule (principal); I25.10 Atherosclerotic heart disease of native coronary artery without angina pectoris
CPT/HCPCS: 78815; A9552

== ENCOUNTER 2021-04-28 09:57 | Emergency (ER) | payer MEDICARE, BC ==
[2021-04-28 10:39] VITALS: BP 147/89; PULSE 78; RESP 18; TEMP 98
--- NOTE | 2021-04-28 12:29 | ED ---
URI HPI - General Chief Complaint: Upper Respiratory Infection Stated Complaint: congestion Time Seen by Provider: 04/28/21 11:20 Source: patient, RN notes reviewed Mode of arrival: ambulatory Limitations: no limitations - History of Present Illness Initial Comments: Patient is an 85-year-old male presenting to the emergency Department with complaints of sinus drainage and throat pain over the past couple months. He states she's been having sinus congestion issues since August. Has been to his doctor several times for this and he has no improvement. They did put him on antibiotics, last course of Avelox was a couple weeks ago. He states he continues to wake up with a sore throat and having lots of nasal drainage. He denies any chest pain or shortness of breath, no coughing, no fevers or chills. He states he has been vaccinated against Covid and "thinks gave him chronic Covid." He has been tested in the past and all tests have been negative. Patient has no further complaints. His vital signs are stable upon arrival. - Related Data Home Medications Medication Instructions Recorded Confirmed Fenofibrate Nanocrystallized 145 mg PO DAILY 04/03/15 04/28/21 [Tricor] Atorvastatin [Lipitor] 40 mg PO HS 10/30/18 04/28/21 Losartan Potassium 50 mg PO DAILY 11/15/20 04/28/21 Sodium Bicarbonate Tab 650 mg PO DAILY 11/15/20 04/28/21 Amiodarone [Cordarone] 200 mg PO DAILY 12/27/20 04/28/21 Aspirin EC [Ecotrin Low Dose] 81 mg PO DAILY 12/27/20 04/28/21 Cyanocobalamin [Vitamin B-12] 500 mcg PO DAILY 12/27/20 04/28/21 Metoprolol Succinate (ER) [Toprol 25 mg PO BID 12/27/20 04/28/21 XL] Repaglinide [Prandin] 0.5 mg PO BID 12/27/20 04/28/21 Tamsulosin HCl [Flomax] 0.4 mg PO DAILY 12/27/20 04/28/21 Previous Rx's Medication Instructions Recorded Isosorbide Mononitrate ER [Imdur] 30 mg PO DAILY #30 tab.er.24h 01/30/18 Pantoprazole [Protonix] 40 mg PO MENDEL-DAVID #30 tablet. 01/30/18 hydrALAZINE HCL [Apresoline] 50 mg PO TID #90 tab 01/01/21 Allergies Allergy/AdvReac Type Severity Reaction Status Date / Time No Known Allergies Allergy Verified 04/28/21 12:04 Review of Systems ROS Statement: Those systems with pertinent positive or pertinent negative responses have been documented in the HPI. ROS Other: All systems not noted in ROS Statement are negative. 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 Patient is nontoxic and in no acute distress. HEAD: Atraumatic, normocephalic. EYES: Pupils equal round and reactive to light, extraocular movements intact, sclera anicteric, conjunctiva are normal. Eyelids were unremarkable. ENT: TMs normal, nares patent, oropharynx clear without exudates, postnasal drip. Moist mucous membranes. NECK: Normal range of motion, supple without lymphadenopathy or JVD. LUNGS: Unlabored respirations. Breath sounds clear to auscultation bilaterally and equal. No wheezes rales or rhonchi. HEART: Regular rate and rhythm without murmurs, rubs or gallops. ABDOMEN: Soft, nontender, normoactive bowel sounds. No guarding, no rebound. No masses appreciated. MUSCULOSKELETAL: Normal extremities with adequate strength and normal range of motion, no pitting or edema. No clubbing or cyanosis. NEUROLOGICAL: Patient is alert and oriented x 3. SKIN: Warm, Dry, normal turgor, no rashes or lesions noted. Limitations: no limitations Course Vital Signs 04/28/21 10:36 Temperature 98 F Pulse Rate 78 Respiratory 18 Rate Blood Pressure 147/89 O2 Sat by Pulse 96 Oximetry Medical Decision Making - Medical Decision Making Patient is an 85-year-old male here for sinus drainage and a sore throat since August. His exam is unremarkable, his vital signs are stable. Patient's rapid covid test is negative. I recommended Claritin or Zyrtec for his symptoms. He needs to follow-up with his doctor, I will give him ENT referral. He is agreeable to this plan of care and he is stable for discharge. - Lab Data Lab Results 04/28/21 Range/Units 11:31 Coronavirus (PCR) Not Detected (Not Detectd) Disposition Clinical Impression: Sinus drainage, Sore throat Disposition: HOME SELF-CARE Condition: Stable Instructions (If sedation given, give patient instructions): Rhinosinusitis (ED) Additional Instructions: Please return to the Emergency Department if symptoms worsen or any other concerns. Please continue with nasal spray as already prescribed. Trial of Claritin or Zyrtec for the sinus drainage. Please follow-up with your doctor and/or ENT Is patient prescribed a controlled substance at d/c from ED?: No Referrals: Tyson Rascon DO [Primary Care Provider] - 1-2 days Leonides Parker DO [Doctor of Osteopathic Medicine] - 1-2 days Time of Disposition: 12:29
== END 2021-04-28 13:00 | disposition home or self-care (01) ==
LOC: EC 09:57
DX: J02.9 Acute pharyngitis, unspecified (principal); E11.9 Type 2 diabetes mellitus without complications; I10 Essential (primary) hypertension; I25.10 Atherosclerotic heart disease of native coronary artery without angina pectoris; E78.5 Hyperlipidemia, unspecified; Z20.822 Contact with and (suspected) exposure to COVID-19; Z79.899 Other long term (current) drug therapy; Z79.82 Long term (current) use of aspirin; Z79.84 Long term (current) use of oral hypoglycemic drugs
CPT/HCPCS: 87635; 99283

== ENCOUNTER 2021-09-09 12:42 | Emergency (ER) | payer MEDICARE, BC ==
[2021-09-09] MEDS ORDERED: MAG HYDROX/AL HYDROX/SIMETH 30 ML, HYOSCYAMINE ELIXIR 10 ML, LIDOCAINE VISCOUS 2% 10 ML PO STA ×3 (13:45)
[2021-09-09] MEDS ORDERED: ONDANSETRON 4 MG/2 ML VIAL IVP STA (13:45)
--- NOTE | 2021-09-09 13:48 | ED ---
General Adult HPI - General Chief complaint: Nausea/Vomiting/Diarrhea Stated complaint: Nausea Time Seen by Provider: 09/09/21 13:30 Source: patient, RN notes reviewed, old records reviewed Mode of arrival: ambulatory - History of Present Illness Initial comments: This is an 85-year-old male presents emergency department stating that he has a sick stomach. Patient states his been ongoing for 6 months. Patient states he feels nauseated but doesn't vomit. Patient denies any abdominal pain patient denies any diarrhea. Patient denies any chest pain or difficulty breathing s hortness of breath. Patient states he just feels sick to stomach and it gets worse typically with eating. Patient also states she's had more gastric reflux lately and he has in the past and he often will wake up in the middle the night with a sore throat because he acid is coming up. Patient denies any fevers chills or cough. Patient states he has seen his primary medical care doctor they didn't do much so he came to the emergency department today hoping to get an x-ray of his belly. - Related Data Home Medications Medication Instructions Recorded Confirmed Fenofibrate Nanocrystallized 145 mg PO DAILY 04/03/15 04/28/21 [Tricor] Atorvastatin [Lipitor] 40 mg PO HS 10/30/18 04/28/21 Losartan Potassium 50 mg PO DAILY 11/15/20 04/28/21 Sodium Bicarbonate Tab 650 mg PO DAILY 11/15/20 04/28/21 Amiodarone [Cordarone] 200 mg PO DAILY 12/27/20 04/28/21 Aspirin EC [Ecotrin Low Dose] 81 mg PO DAILY 12/27/20 04/28/21 Cyanocobalamin [Vitamin B-12] 500 mcg PO DAILY 12/27/20 04/28/21 Metoprolol Succinate (ER) [Toprol 25 mg PO BID 12/27/20 04/28/21 XL] Repaglinide [Prandin] 0.5 mg PO BID 12/27/20 04/28/21 Tamsulosin HCl [Flomax] 0.4 mg PO DAILY 12/27/20 04/28/21 Previous Rx's Medication Instructions Recorded Isosorbide Mononitrate ER [Imdur] 30 mg PO DAILY #30 tab.er.24h 01/30/18 Pantoprazole [Protonix] 40 mg PO AC-BRKFST #30 tablet. 01/30/18 hydrALAZINE HCL [Apresoline] 50 mg PO TID #90 tab 01/01/21 Famotidine [Pepcid] 20 mg PO BID #10 tablet 09/09/21 Allergies Allergy/AdvReac Type Severity Reaction Status Date / Time No Known Allergies Allergy Verified 09/09/21 13:31 Review of Systems ROS Statement: Those systems with pertinent positive or pertinent negative responses have been documented in the HPI. ROS Other: All systems not noted in ROS Statement are negative. 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 Patient is nontoxic and well- hydrated and is in mild distress. ENT: Neck is soft and supple. No significant lymphadenopathy is noted. Oropharynx is clear. Moist mucous membranes. Neck has full range of motion without eliciting any pain. EYES: The sclera were anicteric and conjunctiva were pink and moist. Extraocular movements were intact and pupils were equal round and reactive to light. Eyelids were unremarkable. PULMONARY: Unlabored respirations. Good breath sounds bilaterally. No audible rales rhonchi or wheezing was noted. CARDIOVASCULAR: There is a regular rate and rhythm without any murmurs gallops or rubs. ABDOMEN: Soft and nontender with normal bowel sounds. SKIN: Skin is clear with no lesions or rashes and otherwise unremarkable. NEUROLOGIC: Patient is alert and oriented x3. Cranial nerves II through XII are grossly intact. Motor and sensory are also intact. Normal speech, volume and content. Symmetrical smile. MUSCULOSKELETAL: Normal extremities with adequate strength and full range of motion. No lower extremity swelling or edema. No calf tenderness. LYMPHATICS: No significant lymphadenopathy is noted PSYCHIATRIC: Normal psychiatric evaluation. Course Vital Signs 09/09/21 09/09/21 13:25 14:02 Temperature 97.6 F 97.9 F Pulse Rate 82 60 Respiratory 18 14 Rate Blood Pressure 144/77 167/95 O2 Sat by Pulse 95 94 L Oximetry Medical Decision Making - Medical Decision Making Patient received a GI cocktail emergency department and he stated it took away HIS pain and discomfort. Patient also got Zofran he was no longer nauseated. Patient will follow-up with his primary medical care doctor to get a endoscopy done. - Lab Data Result diagrams: 09/09/21 13:55 09/09/21 13:55 Lab Results 09/09/21 09/09/21 Range/Units 13:55 13:55 WBC 7.0 (3.8-10.6) k/uL RBC 4.55 (4.30-5.90) m/uL Hgb 14.7 (13.0-17.5) gm/dL Hct 44.4 (39.0-53.0) % MCV 97.8 (80.0-100.0) fL MCH 32.4 (25.0-35.0) pg MCHC 33.2 (31.0-37.0) g/dL RDW 13.6 (11.5-15.5) % Plt Count 136 L (150-450) k/uL MPV 7.3 Neutrophils % 62 % Lymphocytes % 14 % Monocytes % 11 % Eosinophils % 9 % Basophils % 1 % Neutrophils # 4.4 (1.3-7.7) k/uL Lymphocytes # 1.0 (1.0-4.8) k/uL Monocytes # 0.8 (0-1.0) k/uL Eosinophils # 0.6 (0-0.7) k/uL Basophils # 0.1 (0-0.2) k/uL Sodium 139 (137-145) mmol/L Potassium 4.6 (3.5-5.1) mmol/L Chloride 105 (98-107) mmol/L Carbon Dioxide 27 (22-30) mmol/L Anion Gap 7 mmol/L BUN 25 H (9-20) mg/dL Creatinine 1.39 H (0.66-1.25) mg/dL Est GFR (CKD-EPI)AfAm 53 (>60 ml/min/1.73 sqM) Est GFR (CKD-EPI)NonAf 46 (>60 ml/min/1.73 sqM) Glucose 131 H (74-99) mg/dL Calcium 9.2 (8.4-10.2) mg/dL Magnesium 1.6 (1.6-2.3) mg/dL Total Bilirubin 1.0 (0.2-1.3) mg/dL AST 33 (17-59) U/L ALT 30 (4-49) U/L Alkaline Phosphatase 152 H (38-126) U/L Total Protein 7.0 (6.3-8.2) g/dL Albumin 3.7 (3.5-5.0) g/dL Lipase 51 (23-300) U/L Disposition Clinical Impression: GERD (gastroesophageal reflux disease) Disposition: HOME SELF-CARE Condition: Good Instructions (If sedation given, give patient instructions): GERD (Gastroesophageal Reflux Disease) in Children (ED) Prescriptions: Famotidine [Pepcid] 20 mg PO BID #10 tablet Is patient prescribed a controlled substance at d/c from ED?: No Referrals: Tyson Rascon DO [Primary Care Provider] - 1-2 days Time of Disposition: 14:39
[2021-09-09 14:04] VITALS: BP 167/95; PULSE 60; RESP 14; TEMP 97.9
[2021-09-09 14:12] LABS: Basophils # (A) 0.1 k/uL (0-0.2); Basophils % (A) 1 %; Eosinophils # (A) 0.6 k/uL (0-0.7); Eosinophils % (A) 9 %; HCT 44.4 % (39.0-53.0); HGB 14.7 gm/dL (13.0-17.5); Lymphocytes % (A) 14 %; MCH 32.4 pg (25.0-35.0); MCHC 33.2 g/dL (31.0-37.0); MCV 97.8 fL (80.0-100.0); Mean Platelet Volume 7.3; Monocytes # (A) 0.8 k/uL (0-1.0); Monocytes % (A) 11 %; Neutrophils # (A) 4.4 k/uL (1.3-7.7); Neutrophils % (A) 62 %; Platelet Count 136 k/uL (150-450); RBC 4.55 m/uL (4.30-5.90); RDW 13.6 % (11.5-15.5)
[2021-09-09 14:31] LABS: Albumin 3.7 g/dL (3.5-5.0); Calcium 9.2 mg/dL (8.4-10.2); Magnesium 1.6 mg/dL (1.6-2.3); Potassium 4.6 mmol/L (3.5-5.1)
== END 2021-09-09 15:16 | disposition home or self-care (01) ==
LOC: EC 12:42
DX: K21.9 Gastro-esophageal reflux disease without esophagitis (principal); I25.10 Atherosclerotic heart disease of native coronary artery without angina pectoris; E11.9 Type 2 diabetes mellitus without complications; E78.5 Hyperlipidemia, unspecified; I10 Essential (primary) hypertension; F41.9 Anxiety disorder, unspecified; F32.A Depression, unspecified; Z79.82 Long term (current) use of aspirin; Z85.038 Personal history of other malignant neoplasm of large intestine; Z95.1 Presence of aortocoronary bypass graft; Z95.0 Presence of cardiac pacemaker
CPT/HCPCS: 99283; 96374; 36415; 80053; 83690; 83735; 85025; J2405

== ENCOUNTER → 2021-12-22 | Outpatient (CLI) | payer MEDICARE, BC | END | disposition home or self-care (01) | LOC: LABWHC1 08:47 | PROVIDERS: ATTEND Internal Medicine Cardiovascular Disease | DX: I47.2 Ventricular tachycardia (principal) | CPT/HCPCS: 36415; 84443; 84450; 84460 ==

== ENCOUNTER 2022-02-07 12:59 | Emergency (ER) | payer MEDICARE, BC ==
[2022-02-07 13:16] VITALS: RESP 18; TEMP 98
[2022-02-07 14:31] LABS: Basophils # (A) 0.1 k/uL (0-0.2); Basophils % (A) 2 %; Eosinophils # (A) 0.4 k/uL (0-0.7); Eosinophils % (A) 6 %; HCT 43.5 % (39.0-53.0); HGB 14.3 gm/dL (13.0-17.5); Lymphocytes # (A) 0.8 k/uL (1.0-4.8); Lymphocytes % (A) 13 %; MCH 32.5 pg (25.0-35.0); MCHC 32.9 g/dL (31.0-37.0); MCV 98.6 fL (80.0-100.0); Mean Platelet Volume 7.6; Monocytes # (A) 0.7 k/uL (0-1.0); Monocytes % (A) 11 %; Neutrophils # (A) 4.4 k/uL (1.3-7.7); Neutrophils % (A) 67 %; Platelet Count 122 k/uL (150-450); RBC 4.41 m/uL (4.30-5.90); WBC 6.6 k/uL (3.8-10.6)
[2022-02-07 14:40] LABS: Calcium 8.9 mg/dL (8.4-10.2); Magnesium 1.5 mg/dL (1.6-2.3); Potassium 4.4 mmol/L (3.5-5.1); Total Bilirubin 0.8 mg/dL (0.2-1.3); Total Protein 6.7 g/dL (6.3-8.2)
[2022-02-07 14:50] LABS: Partial Thromboplastin Time 23.1 sec (22.0-30.0); Prothrombin Time 10.5 sec (9.0-12.0)
--- NOTE | 2022-02-07 15:07 | XR ---
EXAMINATION TYPE: XR chest 2V DATE OF EXAM: 02/07/2022 COMPARISON: None HISTORY: Short of breath TECHNIQUE: FINDINGS: Heart is normal. Thoracic aorta is atheromatous. There is left axillary pacemaker. There ar e chest leads. There is minimal pleural reaction lateral left lung base. No hilar mass. No heart fail ure. IMPRESSION: Mild pleural reaction lateral left lung base. No heart failure.
--- NOTE | 2022-02-07 15:38 | ED ---
General Adult HPI - General Chief complaint: Shortness of Breath Stated complaint: weakness,nausea Time Seen by Provider: 02/07/22 14:12 Source: patient, RN notes reviewed, old records reviewed Mode of arrival: wheelchair Limitations: no limitations - History of Present Illness Initial comments: 86-year-old male presenting for evaluation of mild dyspnea, nasal congestion and cough. Symptoms have been present for one year. Patient states that been co nstant he's got mild sore throat and nasal congestion and cough. He states he's been seen by his primary and pulmonology without any specific diagnosis or findings. No chest pain. No lower extremity pain or swelling. Patient has history of pacemaker. He's a nonsmoker but states she's been exposed to secondhand smoke. - Related Data Home Medications Medication Instructions Recorded Confirmed Fenofibrate Nanocrystallized 145 mg PO DAILY 04/03/15 04/28/21 [Tricor] Atorvastatin [Lipitor] 40 mg PO HS 10/30/18 04/28/21 Losartan Potassium 50 mg PO DAILY 11/15/20 04/28/21 Sodium Bicarbonate Tab 650 mg PO DAILY 11/15/20 04/28/21 Amiodarone [Cordarone] 200 mg PO DAILY 12/27/20 04/28/21 Aspirin EC [Ecotrin Low Dose] 81 mg PO DAILY 12/27/20 04/28/21 Cyanocobalamin [Vitamin B-12] 500 mcg PO DAILY 12/27/20 04/28/21 Metoprolol Succinate (ER) [Toprol 25 mg PO BID 12/27/20 04/28/21 XL] Repaglinide [Prandin] 0.5 mg PO BID 12/27/20 04/28/21 Tamsulosin HCl [Flomax] 0.4 mg PO DAILY 12/27/20 04/28/21 Previous Rx's Medication Instructions Recorded Isosorbide Mononitrate ER [Imdur] 30 mg PO DAILY #30 tab.er.24h 01/30/18 Pantoprazole [Protonix] 40 mg PO AC-BRKFST #30 tablet. 01/30/18 hydrALAZINE HCL [Apresoline] 50 mg PO TID #90 tab 01/01/21 Famotidine [Pepcid] 20 mg PO BID #10 tablet 09/09/21 Amoxic-Pot Clav 875-125Mg 1 tab PO BID 10 Days #20 tab 02/07/22 [Augmentin 875-125] predniSONE 50 mg PO DAILY #5 tab 02/07/22 Allergies Allergy/AdvReac Type Severity Reaction Status Date / Time No Known Allergies Allergy Verified 02/07/22 13:14 Review of Systems ROS Statement: Those systems with pertinent positive or pertinent negative responses have been documented in the HPI. ROS Other: All systems not noted in ROS Statement are negative. 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 Absent: PERRL (Right eye has clouded cornea) Neck exam: Present: normal inspection. Absent: tenderness, meningismus Respiratory exam: Present: normal lung sounds bilaterally. Absent: respiratory distress, wheezes, rales, rhonchi Cardiovascular Exam: Present: regular rate, normal rhythm GI/Abdominal exam: Present: soft. Absent: distended, tenderness, guarding, rebound Extremities exam: Present: normal inspection, normal capillary refill. Absent: pedal edema Neurological exam: Present: alert, oriented X3, CN II-XII intact. Absent: motor sensory deficit Psychiatric exam: Present: normal affect, normal mood Course Vital Signs 02/07/22 13:14 Temperature 98 F Pulse Rate 64 Respiratory 18 Rate Blood Pressure 146/83 O2 Sat by Pulse 94 L Oximetry EKG Findings - EKG Comments: EKG Findings:: EKG: Paced rhythm rate 61, IA interval 298, QRS duration 110, QTC 432 Medical Decision Making - Medical Decision Making 86-year-old male with chronic cough and congestion. Patient well-appearing without any signs of acute distress, lungs are clear symptoms are chronic. I did perform laboratory testing given his age which is unremarkable chest x-ray negative for focal pneumonia or acute findings. Negative troponin, negative BMP. I will refer again to pulmonology and the patient's primary care physician. Return parameters discussed. - Lab Data Result diagrams: 02/07/22 14:22 02/07/22 14: Lab Results 02/07/22 02/07/22 02/07/22 Range/Units 14:22 14:22 14:22 WBC 6.6 (3.8-10.6) k/uL RBC 4.41 (4.30-5.90) m/uL Hgb 14.3 (13.0-17.5) gm/dL Hct 43.5 (39.0-53.0) % MCV 98.6 (80.0-100.0) fL MCH 32.5 (25.0-35.0) pg MCHC 32.9 (31.0-37.0) g/dL RDW 14.0 (11.5-15.5) % Plt Count 122 L (150-450) k/uL MPV 7.6 Neutrophils % 67 % Lymphocytes % 13 % Monocytes % 11 % Eosinophils % 6 % Basophils % 2 % Neutrophils # 4.4 (1.3-7.7) k/uL Lymphocytes # 0.8 L (1.0-4.8) k/uL Monocytes # 0.7 (0-1.0) k/uL Eosinophils # 0.4 (0-0.7) k/uL Basophils # 0.1 (0-0.2) k/uL PT 10.5 (9.0-12.0) sec INR 1.0 (<1.2) APTT 23.1 (22.0-30.0) sec Sodium 143 (137-145) mmol/L Potassium 4.4 (3.5-5.1) mmol/L Chloride 105 (98-107) mmol/L Carbon Dioxide 27 (22-30) mmol/L Anion Gap 11 mmol/L BUN 24 H (9-20) mg/dL Creatinine 1.47 H (0.66-1.25) mg/dL Est GFR (CKD-EPI)AfAm 49 (>60 ml/min/1.73 sqM) Est GFR (CKD-EPI)NonAf 43 (>60 ml/min/1.73 sqM) Glucose 101 H (74-99) mg/dL Calcium 8.9 (8.4-10.2) mg/dL Magnesium 1.5 L (1.6-2.3) mg/dL Total Bilirubin 0.8 (0.2-1.3) mg/dL AST 44 (17-59) U/L ALT 38 (4-49) U/L Alkaline Phosphatase 170 H (38-126) U/L Troponin I (0.000-0.034) ng/mL NT-Pro-B Natriuret Pep pg/mL Total Protein 6.7 (6.3-8.2) g/dL Albumin 4.0 (3.5-5.0) g/dL Coronavirus (PCR) (Not Detectd) 02/07/22 02/07/22 02/07/22 Range/Units 14:22 14:22 14:22 WBC (3.8-10.6) k/uL RBC (4.30-5.90) m/uL Hgb (13.0-17.5) gm/dL Hct (39.0-53.0) % MCV (80.0-100.0) fL MCH (25.0-35.0) pg MCHC (31.0-37.0) g/dL RDW (11.5-15.5) % Plt Count (150-450) k/uL MPV Neutrophils % % Lymphocytes % % Monocytes % % Eosinophils % % Basophils % % Neutrophils # (1.3-7.7) k/uL Lymphocytes # (1.0-4.8) k/uL Monocytes # (0-1.0) k/uL Eosinophils # (0-0.7) k/uL Basophils # (0-0.2) k/uL PT (9.0-12.0) sec INR (<1.2) APTT (22.0-30.0) sec Sodium (137-145) mmol/L Potassium (3.5-5.1) mmol/L Chloride (98-107) mmol/L Carbon Dioxide (22-30) mmol/L Anion Gap mmol/L BUN (9-20) mg/dL Creatinine (0.66-1.25) mg/dL Est GFR (CKD-EPI)AfAm (>60 ml/min/1.73 sqM) Est GFR (CKD-EPI)NonAf (>60 ml/min/1.73 sqM) Glucose (74-99) mg/dL Calcium (8.4-10.2) mg/dL Magnesium (1.6-2.3) mg/dL Total Bilirubin (0.2-1.3) mg/dL AST (17-59) U/L ALT (4-49) U/L Alkaline Phosphatase (38-126) U/L Troponin I <0.012 (0.000-0.034) ng/mL NT-Pro-B Natriuret Pep 284 pg/mL Total Protein (6.3-8.2) g/dL Albumin (3.5-5.0) g/dL Coronavirus (PCR) Not Detected (Not Detectd) Disposition Clinical Impression: COPD (chronic obstructive pulmonary disease) Disposition: HOME SELF-CARE Condition: Good Instructions (If sedation given, give patient instructions): Chronic Bronchitis (ED) Prescriptions: Amoxic-Pot Clav 875-125Mg [Augmentin 875-125] 1 tab PO BID 10 Days #20 tab predniSONE 50 mg PO DAILY #5 tab Is patient prescribed a controlled substance at d/c from ED?: No Referrals: Tyson Rascon DO [Primary Care Provider] - 1-2 days Jevon Dhaliwal MD [STAFF PHYSICIAN] - 1-2 days Time of Disposition: 16:02
[2022-02-07 16:25] VITALS: BP 180/98; PULSE 85
== END 2022-02-07 16:25 | disposition home or self-care (01) ==
LOC: EC 12:59
DX: J44.9 Chronic obstructive pulmonary disease, unspecified (principal); E11.9 Type 2 diabetes mellitus without complications; E78.5 Hyperlipidemia, unspecified; I10 Essential (primary) hypertension; I25.10 Atherosclerotic heart disease of native coronary artery without angina pectoris; Z20.822 Contact with and (suspected) exposure to COVID-19; Z79.82 Long term (current) use of aspirin
CPT/HCPCS: 36415; 71046; 80053; 83735; 83880; 84484; 85025; 85610; 85730; 87635; 93005; 99285

== ENCOUNTER → 2022-06-23 | Outpatient (CLI) | payer MEDICARE, BC | END | disposition home or self-care (01) | LOC: LABWHC1 10:28 | PROVIDERS: ATTEND Internal Medicine Endocrinology, Diabetes & Metabolism | DX: Z53.9 Procedure and treatment not carried out, unspecified reason (principal) ==

== ENCOUNTER 2022-10-28 06:41 | Emergency (ER) | payer MEDICARE, BC ==
[2022-10-28 06:48] VITALS: RESP 18; TEMP 97.5
[2022-10-28] MEDS ORDERED: LOSARTAN 50 MG TAB PO STA (07:26)
--- NOTE | 2022-10-28 07:26 | ED ---
General Adult HPI - General Chief complaint: Recheck/Abnormal Lab/Rx Stated complaint: High blood Pressure, Low Blood Sugar Time Seen by Provider: 10/28/22 06:57 Source: patient, RN notes reviewed, old records reviewed Mode of arrival: ambulatory Limitations: no limitations - History of Present Illness Initial comments: A 87 -year-old male with a past medical history significant for CAD, HLD, HTN, and DM, presenting to the ED with the chief complaint of high blood pressure. Patient states that he feels like his blood pressure has been "too high" when checking his blood pressure at home. Last blood pressure check was 190s systolic. She states that he recently saw his PCP and was prescribed a new medication. Patient does not know the name of this medication. Patient states that she tried to get this medication yesterday but notes that the prescription would not be ready today. Patient currently on metoprolol 25 mg daily and losartan 50 mg daily. She reports taking these medications as prescribed. Denies chest pain, shortness of breath, or headache. - Related Data Home Medications Medication Instructions Recorded Confirmed Fenofibrate Nanocrystallized 145 mg PO DAILY 04/03/15 04/28/21 [Tricor] Atorvastatin [Lipitor] 40 mg PO HS 10/30/18 04/28/21 Losartan Potassium 50 mg PO DAILY 11/15/20 04/28/21 Sodium Bicarbonate Tab 650 mg PO DAILY 11/15/20 04/28/21 Amiodarone [Cordarone] 200 mg PO DAILY 12/27/20 04/28/21 Aspirin EC [Ecotrin Low Dose] 81 mg PO DAILY 12/27/20 04/28/21 Cyanocobalamin [Vitamin B-12] 500 mcg PO DAILY 12/27/20 04/28/21 Metoprolol Succinate (ER) [Toprol 25 mg PO BID 12/27/20 04/28/21 XL] Repaglinide [Prandin] 0.5 mg PO BID 12/27/20 04/28/21 Tamsulosin HCl [Flomax] 0.4 mg PO DAILY 12/27/20 04/28/21 Previous Rx's Medication Instructions Recorded Isosorbide Mononitrate ER [Imdur] 30 mg PO DAILY #30 tab.er.24h 01/30/18 Pantoprazole [Protonix] 40 mg PO MENDEL-DAVID #30 tablet. 01/30/18 hydrALAZINE HCL [Apresoline] 50 mg PO TID #90 tab 01/01/21 Famotidine [Pepcid] 20 mg PO BID #10 tablet 09/09/21 Amoxic-Pot Clav 875-125Mg 1 tab PO BID 10 Days #20 tab 02/07/22 [Augmentin 875-125] predniSONE 50 mg PO DAILY #5 tab 02/07/22 Allergies Allergy/AdvReac Type Severity Reaction Status Date / Time No Known Allergies Allergy Verified 10/28/22 06:44 Review of Systems ROS Statement: Those systems with pertinent positive or pertinent negative responses have been documented in the HPI. ROS Other: All systems not noted in ROS Statement are negative. 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 Past Anesthesia/Blood Transfusion Reactions: No Reported Reaction Type of Cardiac Device: AICD Device Placement Date:: 11/16 Past Psychological History: Anxiety, Depression Smoking Status: Never smoker Past Alcohol Use History: None Reported Past Drug Use History: None Reported - Past Family History Mother Family Medical History: No Reported History General Exam Limitations: no limitations, language barrier (Hard of hearing) General appearance: alert, in no apparent distress Head exam: Present: atraumatic, normocephalic Eye exam: Present: normal appearance ENT exam: Present: mucous membranes moist Neck exam: Present: normal inspection Respiratory exam: Present: normal lung sounds bilaterally Cardiovascular Exam: Present: regular rate, normal rhythm Neurological exam: Present: alert, oriented X3 Psychiatric exam: Present: normal affect, normal mood Skin exam: Present: warm Course Vital Signs 10/28/22 10/28/22 06:44 08:00 Temperature 97.5 F L Pulse Rate 82 60 Respiratory 18 18 Rate Blood Pressure 202/107 161/92 O2 Sat by Pulse 98 98 Oximetry Medical Decision Making - Medical Decision Making Was pt. sent in by a medical professional or institution (, PA, CAN CAPPER, urgent care, hospital, or custodial...) When possible be specific @ -[No] Did you speak to anyone other than the patient for history (EMS, parent, family, police, friend...)? What history was obtained from this source @ -[No] Did you review nursing and triage notes (agree or disagree)? Why? @ -[I reviewed and agree with nursing and triage notes] Were old charts reviewed (outside hosp., previous admission, EMS record, old EKG, old radiological studies, urgent care reports/EKG's, custodial records)? Report findings @ -Old charts in prior EKG reviewed. Chart showed current creatinine improved from baseline. EKG showed a motor findings to current EKG. Differential Diagnosis (chest pain, altered mental status, abdominal pain women, abdominal pain men, vaginal bleeding, weakness, fever, dyspnea, syncope, headache, dizziness, GI bleed, back pain, seizure, CVA, palpatations, mental health, musculoskeletal)? @ -Differential Chest Pain: Stable Angina, Unstable Angina, STEMI, NSTEMI, TIA, CVA, Hypertensive Emergency this is not meant to be an all-inclusive list. EKG interpreted by me (3pts min.). @ -[As above] X-rays interpreted by me (1pt min.). @ -[None done] CT interpreted by me (1pt min.). @ -[None done] U/S interpreted by me (1pt. min.). @ -[None done] What testing was considered but not performed or refused? (CT, X-rays, U/S, labs)? Why? @ -[None] What meds were considered but not given or refused? Why? @ -[None] Did you discuss the management of the patient with other professionals (professionals i.e. , PA, CAN CAPPER, lab, RT, psych nurse, social media campaign manager, top lift compressor, teacher, community cultural development officer, immigration case worker)? Give summary @ -[No] Was smoking cessation discussed for >3mins.? @ -[No] Was critical care preformed (if so, how long)? @ -[No] Were there social determinants of health that impacted care today? How? (H omelessness, low income, unemployed, alcoholism, drug addiction, transportation, low edu. Level, literacy, decrease access to med. care, senior living, rehab)? @ -[No] Was there de-escalation of care discussed even if they declined (Discuss DNR or withdrawal of care, Hospice)? DNR status @ -[No] What co-morbidities impacted this encounter? (DM, HTN, Smoking, COPD, CAD, Cancer, CVA, ARF, Chemo, Hep., AIDS, mental health diagnosis, sleep apnea, morbid obesity)? @ -CAD. HLD Was patient admitted / discharged? Hospital course, mention meds given and route, prescriptions, significant lab abnormalities, going to OR and other pertinent info. @ - Discharged after improvement of blood pressure with losartan 50 mg by mouth. Creatinine 9.5, improved from baseline at 1.6. Undiagnosed new problem with uncertain prognosis? @ -[No] Drug Therapy requiring intensive monitoring for toxicity (Heparin, Nitro, Insulin, Cardizem)? @ -[No] Were any procedures done? @ -[No] Diagnosis/symptom? @ -Hypertension Acute, or Chronic, or Acute on Chronic? @ -Acute on chronic Uncomplicated (without systemic symptoms) or Complicated (systemic symptoms)? @ -Uncomplicated Side effects of treatment? @ -[No] Exacerbation, Progression, or Severe Exacerbation? @ -[No] Poses a threat to life or bodily function? How? (Chest pain, USA, IA, pneumonia, PE, COPD, DKA, ARF, appy, cholecystitis, CVA, Diverticulitis, Homicidal, Suicidal, threat to staff... and all critical care pts) @ -[No] - Lab Data Result diagrams: 10/28/22 07:31 10/28/22 07:31 Lab Results 10/28/22 10/28/22 Range/Units 07:31 07:31 WBC 5.9 (3.8-10.6) k/uL RBC 4.28 L (4.30-5.90) m/uL Hgb 14.2 (13.0-17.5) gm/dL Hct 42.0 (39.0-53.0) % MCV 98.2 (80.0-100.0) fL MCH 33.1 (25.0-35.0) pg MCHC 33.7 (31.0-37.0) g/dL RDW 13.9 (11.5-15.5) % Plt Count 134 L (150-450) k/uL MPV 7.3 Neutrophils % 65 % Lymphocytes % 14 % Monocytes % 9 % Eosinophils % 9 % Basophils % 1 % Neutrophils # 3.8 (1.3-7.7) k/uL Lymphocytes # 0.8 L (1.0-4.8) k/uL Monocytes # 0.5 (0-1.0) k/uL Eosinophils # 0.5 (0-0.7) k/uL Basophils # 0.0 (0-0.2) k/uL Sodium 141 (137-145) mmol/L Potassium 4.1 (3.5-5.1) mmol/L Chloride 105 (98-107) mmol/L Carbon Dioxide 26 (22-30) mmol/L Anion Gap 10 mmol/L BUN 33 H (9-20) mg/dL Creatinine 1.55 H (0.66-1.25) mg/dL Est GFR (CKD-EPI)AfAm 46 (>60 ml/min/1.73 sqM) Est GFR (CKD-EPI)NonAf 40 (>60 ml/min/1.73 sqM) Glucose 101 H (74-99) mg/dL Calcium 8.7 (8.4-10.2) mg/dL Total Bilirubin 1.0 (0.2-1.3) mg/dL AST 31 (17-59) U/L ALT 26 (4-49) U/L Alkaline Phosphatase 187 H (38-126) U/L Total Protein 6.8 (6.3-8.2) g/dL Albumin 3.8 (3.5-5.0) g/dL - EKG Data -: EKG Interpreted by Or Rate: normal EKG Comments: EKG shows a paced rhythm at a rate of 63 with nonspecific T-wave inversions IA 3 6, QRS 95, QT/QTc 429/436, similar to prior. When compared to previous EKG there are: no significant change Disposition Clinical Impression: HTN (hypertension) Disposition: HOME SELF-CARE Condition: Good Additional Instructions: Please return to the Emergency Department if symptoms worsen or any other concerns. Is patient prescribed a controlled substance at d/c from ED?: No Referrals: Nonstaff,Physician [REFERRING] - 1-2 days Time of Disposition: 08:20
[2022-10-28 07:37] LABS: Basophils % (A) 1 %; Eosinophils # (A) 0.5 k/uL (0-0.7); Eosinophils % (A) 9 %; HGB 14.2 gm/dL (13.0-17.5); Lymphocytes # (A) 0.8 k/uL (1.0-4.8); Lymphocytes % (A) 14 %; MCH 33.1 pg (25.0-35.0); MCHC 33.7 g/dL (31.0-37.0); MCV 98.2 fL (80.0-100.0); Mean Platelet Volume 7.3; Monocytes # (A) 0.5 k/uL (0-1.0); Monocytes % (A) 9 %; Neutrophils # (A) 3.8 k/uL (1.3-7.7); Neutrophils % (A) 65 %; Platelet Count 134 k/uL (150-450); RBC 4.28 m/uL (4.30-5.90); RDW 13.9 % (11.5-15.5); WBC 5.9 k/uL (3.8-10.6)
[2022-10-28 07:56] LABS: Albumin 3.8 g/dL (3.5-5.0); Calcium 8.7 mg/dL (8.4-10.2); Potassium 4.1 mmol/L (3.5-5.1); Total Protein 6.8 g/dL (6.3-8.2)
[2022-10-28 08:01] VITALS: BP 161/92; PULSE 60
== END 2022-10-28 08:30 | disposition home or self-care (01) ==
LOC: EC 06:41
DX: I10 Essential (primary) hypertension (principal); I25.10 Atherosclerotic heart disease of native coronary artery without angina pectoris; E11.9 Type 2 diabetes mellitus without complications; E78.5 Hyperlipidemia, unspecified; F41.9 Anxiety disorder, unspecified; F32.A Depression, unspecified; Z79.82 Long term (current) use of aspirin; Z79.84 Long term (current) use of oral hypoglycemic drugs; Z79.899 Other long term (current) drug therapy
CPT/HCPCS: 36415; 80053; 85025; 93005; 99284

== ENCOUNTER 2023-04-17 16:28 | Emergency (ER) | payer MEDICARE, BC ==
[2023-04-17] MEDS ORDERED: hydrALAZINE HCL 20 MG/ML 1 ML VIAL IVP STA (17:01)
[2023-04-17 17:59] LABS: Basophils % (A) 1 %; Eosinophils # (A) 0.4 k/uL (0-0.7); Eosinophils % (A) 8 %; HCT 37.3 % (39.0-53.0); HGB 12.6 gm/dL (13.0-17.5); Lymphocytes # (A) 0.7 k/uL (1.0-4.8); Lymphocytes % (A) 14 %; MCH 33.3 pg (25.0-35.0); MCHC 33.9 g/dL (31.0-37.0); MCV 98.4 fL (80.0-100.0); Mean Platelet Volume 7.5; Monocytes # (A) 0.4 k/uL (0-1.0); Monocytes % (A) 8 %; Neutrophils # (A) 3.4 k/uL (1.3-7.7); Neutrophils % (A) 67 %; Platelet Count 142 k/uL (150-450); RBC 3.79 m/uL (4.30-5.90); RDW 14.2 % (11.5-15.5)
[2023-04-17 18:01] LABS: ALT 33 U/L (4-49); AST 38 U/L (17-59); African American GFR (CKD) 58 (>60 ml/min/1.73 sqM); Albumin 3.4 g/dL (3.5-5.0); Alkaline Phosphatase 119 U/L (38-126); Anion Gap 11 mmol/L; Blood Urea Nitrogen 30 mg/dL (9-20); Calcium 8.7 mg/dL (8.4-10.2); Carbon Dioxide 23 mmol/L (22-30); Chloride 107 mmol/L (98-107); Glucose 133 mg/dL (74-99); Non-African American GFR(CKD) 51 (>60 ml/min/1.73 sqM); Potassium 3.9 mmol/L (3.5-5.1); Sodium 141 mmol/L (137-145); Total Bilirubin 0.6 mg/dL (0.2-1.3); Total Protein 6.4 g/dL (6.3-8.2)
[2023-04-17 18:03] LABS: Prothrombin Time 11.2 sec (10.0-12.5)
[2023-04-17] MEDS ORDERED: MECLIZINE 12.5 MG TAB PO STA (18:06)
[2023-04-17 18:35] LABS: Appearance,Urine Clear (Clear); Bilirubin,Urine Negative (Negative); Blood,Urine Negative (Negative); Color,Urine Yellow; Glucose,Urine (UA) 2+ (Negative); Hyaline Casts,Urine 4 /lpf (0-2); Ketones,Urine Negative (Negative); Leukocyte Esterase,Urine Small (Negative); Mucus,Urine Rare /hpf; Nitrite,Urine Negative (Negative); PH, Urine 5.5 (5.0-8.0); Protein,Urine 2+ (Negative); RBC,Urine 1 /hpf (0-5); Specific Gravity,Urine 1.024 (1.001-1.035); Squamous Epithelial Cell,Urine <1 /hpf (0-4); Urobilinogen,Urine <2.0 mg/dL (<2.0); WBC,Urine 5 /hpf (0-5)
--- NOTE | 2023-04-17 18:52 | CT ---
EXAMINATION TYPE: CT brain wo con CT DLP: 1097.4 mGycm, Automated exposure control for dose reduction was used. DATE OF EXAM: 04/17/2023 6:35 PM COMPARISON: . CLINICAL INDICATION:Male, 87 years old with history of dizziness, dizziness, htn TECHNIQUE: Brain: Axial CT images of the brain were obtained with coronal and sagittal reformats created and rev iewed. Contrast used: None. Oral contrast used: None. FINDINGS: Brain: Extra-axial spaces: No abnormal extra-axial fluid collections. Ventricular system: Appear dilated in proportion to cerebral atrophy. Cerebral parenchyma: No acute intraparenchymal hemorrhage or mass effect. The hutchinson-white matter int erface appears maintained. Moderate generalized brain atrophy. Scattered hypoattenuating areas are s een within the cerebral white matter, moderate in degree, nonspecific but most often seen with chroni c microvascular ischemic change. Cerebellum: No acute abnormality. Mass effect: No evidence of midline shift. Intracranial vasculature: Atherosclerotic calcifications of the larger arteries noted near the skull base. Soft tissues: No acute abnormality. Calvarium/osseous structures: No depressed skull fracture. Benign hyperostosis frontalis noted. Paranasal sinuses and mastoid air cells: No evidence of air-fluid levels. Moderate left and mild righ t exit sinus mucosal thickening. Right mastoid air cells are clear. Partial opacification of a few in ferior left mastoid air cells. Visualized orbits: No acute abnormality. Lenses may have been replaced. Radiodensities at the anterio r left globe may be from prior ophthalmologic surgery. 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 MRI is more sensitive for detecting acute processes such as infarct, and may be considered if clinica lly warranted. IMPRESSION: No acute intracranial CT abnormality. Atrophy and chronic microvascular ischemic changes.
--- NOTE | 2023-04-17 18:55 | XR ---
EXAMINATION TYPE: XR chest 2V DATE OF EXAM: 04/17/2023 6:32 PM CLINICAL INDICATION:Male, 87 years old with history of dizziness; [facility] COMPARISON: 02/07/2022 TECHNIQUE: XR chest 2V Frontal and lateral views of the chest. FINDINGS: Lines/Tubes: EKG leads overlie the chest. No indwelling lines are seen. Lungs/Pleura: Increased bibasilar strandy and hazy opacities compared to prior. No sizable effusion o r pneumothorax demonstrated. Pulmonary vascularity: Unremarkable. Heart/mediastinum: Stable silhouette. Heart appears mildly enlarged. Aorta is tortuous. Stable left chest dual-lead pacemaker/ICD with lead tips over the RA and RV. Musculoskeletal: No acute osseous pathology. Moderate degenerative changes of the spine and shoulders . Other findings: None IMPRESSION: Increased bibasilar opacities could be due to atelectasis and/or overlying soft tissues, early infilt rate not excluded.
[2023-04-17] MEDS ORDERED: cefTRIAXone IN SWFI 1,000 MG/10 ML SYRINGE IVP STA (19:09)
[2023-04-17] MEDS ORDERED: AZITHROMYCIN 500 MG in SODIUM CHLORIDE 0.9% 250 ML IVPB STA (19:09)
[2023-04-17] MEDS ORDERED: hydrALAZINE HCL 50 MG TAB PO STA (19:13)
[2023-04-17] MEDS ORDERED: METOPROLOL SUCCINATE (ER) 25 MG TAB.ER.24H PO STA (19:13)
--- NOTE | 2023-04-17 19:52 | ED ---
Dizziness HPI - General Chief Complaint: Dizziness Stated Complaint: Flu-like symptoms Time Seen by Provider: 04/17/23 16:48 Source: patient Mode of arrival: ambulatory Limitations: no limitations - History of Present Illness Initial Comments: 87-year-old male presenting with chief complaint of dizziness. Patient states that when he got up this morning he felt dizzy. States that he has had this before. Patient also admits to body aches and chills for the last day. He states "I feel like I'm getting the flu". He denies cough, congestion, sore throat, fevers. No chest pain or difficulty breathing. No abdominal pain, nausea, vomiting. - Related Data Home Medications Medication Instructions Recorded Confirmed Fenofibrate Nanocrystallized 145 mg PO DAILY 04/03/15 04/28/21 [Tricor] Atorvastatin [Lipitor] 40 mg PO HS 10/30/18 04/28/21 Losartan Potassium 50 mg PO DAILY 11/15/20 04/28/21 Sodium Bicarbonate Tab 650 mg PO DAILY 11/15/20 04/28/21 Amiodarone [Cordarone] 200 mg PO DAILY 12/27/20 04/28/21 Aspirin EC [Ecotrin Low Dose] 81 mg PO DAILY 12/27/20 04/28/21 Cyanocobalamin [Vitamin B-12] 500 mcg PO DAILY 12/27/20 04/28/21 Metoprolol Succinate (ER) [Toprol 25 mg PO BID 12/27/20 04/28/21 XL] Repaglinide [Prandin] 0.5 mg PO BID 12/27/20 04/28/21 Tamsulosin HCl [Flomax] 0.4 mg PO DAILY 12/27/20 04/28/21 Previous Rx's Medication Instructions Recorded Isosorbide Mononitrate ER [Imdur] 30 mg PO DAILY #30 tab.er.24h 01/30/18 Pantoprazole [Protonix] 40 mg PO MENDEL-BRKFST #30 tablet.dr 01/30/18 hydrALAZINE HCL [Apresoline] 50 mg PO TID #90 tab 01/01/21 Famotidine [Pepcid] 20 mg PO BID #10 tablet 09/09/21 Amoxic-Pot Clav 875-125Mg 1 tab PO BID 10 Days #20 tab 02/07/22 [Augmentin 875-125] predniSONE 50 mg PO DAILY #5 tab 02/07/22 Azithromycin [Zithromax Z Pack] 1 tab PO DIRECTED #6 tab 04/17/23 Meclizine [Antivert] 25 mg PO DAILY PRN #10 tab 04/17/23 Allergies Allergy/AdvReac Type Severity Reaction Status Date / Time No Known Allergies Allergy Verified 04/17/23 16:42 Review of Systems ROS Statement: Those systems with pertinent positive or pertinent negative responses have been documented in the HPI. ROS Other: All systems not noted in ROS Statement are negative. 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 Absent: scleral icterus, periorbital swelling, periorbital tenderness Neck exam: Present: normal inspection, full ROM Respiratory exam: Present: normal lung sounds bilaterally. Absent: respiratory distress, wheezes, rales, rhonchi, stridor Cardiovascular Exam: Present: regular rate, normal rhythm, normal heart sounds. Absent: systolic murmur, diastolic murmur, rubs, gallop, clicks Neurological exam: Present: alert, oriented X3 Expanded Eye Response: (4) open spontaneously Motor Response: (6) obeys commands Verbal Response: (5) oriented Psychiatric exam: Present: normal affect, normal mood Skin exam: Present: warm, dry, intact, normal color. Absent: rash Course Vital Signs 04/17/23 04/17/23 04/17/23 16:40 17:57 18:00 Temperature 98.1 F Pulse Rate 87 66 66 Respiratory 18 18 19 Rate Blood Pressure 214/104 195/118 176/94 O2 Sat by Pulse 95 92 L 92 L Oximetry 04/17/23 04/17/23 04/17/23 18:19 19:00 20:00 Temperature Pulse Rate 80 64 68 Respiratory 17 21 17 Rate Blood Pressure 142/109 193/105 173/96 O2 Sat by Pulse 95 92 L 93 L Oximetry 04/17/23 21:15 Temperature 97.9 F Pulse Rate 64 Respiratory 20 Rate Blood Pressure 162/88 O2 Sat by Pulse 93 L Oximetry Medical Decision Making - Medical Decision Making Electronic atrial pacemaker. Ventricular rate 71. SD interval 248. QRS 107. QT 331. QTc 353. Normal axis. Was pt. sent in by a medical professional or institution (, PA, METER INSTALLER AND REMOVER, urgent care, hospital, or [facility]...) When possible be specific @ -No Did you speak to anyone other than the patient for history (EMS, parent, family, police, friend...)? What history was obtained from this source @ -Family at bedside Did you review nursing and triage notes (agree or disagree)? Why? @ -I reviewed and agree with nursing and triage notes Were old charts reviewed (outside hosp., previous admission, EMS record, old EKG, old radiological studies, urgent care reports/EKG's, [facility] records)? Report findings @ -No old charts were reviewed Differential Diagnosis (chest pain, altered mental status, abdominal pain women, abdominal pain men, vaginal bleeding, weakness, fever, dyspnea, syncope, headache, dizziness, GI bleed, back pain, seizure, CVA, palpatations, mental health, musculoskeletal)? @ -MDM Differential Dizziness: Benign paroxysmal positional Vertigo, Menieres disease, otitis media, acoustic neuroma, vertebrobasilar insufficiency, cerebellar stroke, encephalitis, hypovolemic, arrhythmia, coronary artery syndrome, anemia this is not meant to be an all-inclusive list EKG interpreted by me (3pts min.). @ -As above X-rays interpreted by me (1pt min.). @ -Increased bibasilar opacities could be due to atelectasis and/or overlying soft tissues, infiltrate not excluded CT interpreted by me (1pt min.). @ -No acute intracranial abnormality. Atrophy and chronic microvascular ischemic changes U/S interpreted by me (1pt. min.). @ -None done What testing was considered but not performed or refused? (CT, X-rays, U/S, labs)? Why? @ -None What meds were considered but not given or refused? Why? @ -None Did you discuss the management of the patient with other professionals (professionals i.e. Dr., PA, METER INSTALLER AND REMOVER, lab, RT, psych nurse, social worker aide, strategic partner development manager, teacher, environmental health officer, behavioral health case manager)? Give summary @ -No Was smoking cessation discussed for >3mins.? @ -No Was critical care preformed (if so, how long)? @ -No Were there social determinants of health that impacted care today? How? (Ho melessness, low income, unemployed, alcoholism, drug addiction, transportation, low edu. Level, literacy, decrease access to med. care, usp, rehab)? @ -No Was there de-escalation of care discussed even if they declined (Discuss DNR or withdrawal of care, Hospice)? DNR status @ -No What co-morbidities impacted this encounter? (DM, HTN, Smoking, COPD, CAD, Cancer, CVA, ARF, Chemo, Hep., AIDS, mental health diagnosis, sleep apnea, morbid obesity)? @ -None Was patient admitted / discharged? Hospital course, mention meds given and route, prescriptions, significant lab abnormalities, going to OR and other pertinent info. @ -87-year-old male presenting with chief complaint of dizziness. Patient also admits to chills and body aches. History and physical examination are conducted. No focal neurological deficits, GCS 15. No leukocytosis. BUN 30 and creatinine 1.27, consistent with the patient's baseline. Negative troponin. Urine shows no infectious process. He is negative for influenza, RSV, Covid. Negative brain CT. Chest x-ray shows possible early infiltrate. Patient reports improvement in dizziness after meclizine. Patient was noted to be hyp ertensive, he was given his evening doses of antihypertensives here in the ER. Patient would like to be discharged home. Given that chest x-ray suggests early infiltrate, patient is given a dose of Rocephin and azithromycin here in the ER, he is sent home on azithromycin. Follow-up with PCP. Report back to ER with any new or worsening symptoms. Discussed return parameters and answered all questions. Patient conveyed verbal understanding and agreed to the plan. I discussed this case in detail with my attending Dr. Segura Undiagnosed new problem with uncertain prognosis? @ -No Drug Therapy requiring intensive monitoring for toxicity (Heparin, Nitro, Insulin, Cardizem)? @ -No Were any procedures done? @ -No Diagnosis/symptom? @ -Pneumonia Acute, or Chronic, or Acute on Chronic? @ -Acute Uncomplicated (without systemic symptoms) or Complicated (systemic symptoms)? @ -Uncomplicated Side effects of treatment? @ -No Exacerbation, Progression, or Severe Exacerbation? @ -No Poses a threat to life or bodily function? How? (Chest pain, [place], [place], pneumonia, PE, COPD, DKA, ARF, appy, cholecystitis, CVA, Diverticulitis, Homicidal, Suicidal, threat to staff... and all critical care pts) @ -low likelihood - Lab Data Result diagrams: 04/17/23 17:40 04/17/23 17:40 Lab Results 04/17/23 04/17/23 04/17/23 Range/Units 17:40 17:40 17:40 WBC 5.0 (3.8-10.6) k/uL RBC 3.79 L (4.30-5.90) m/uL Hgb 12.6 L (13.0-17.5) gm/dL Hct 37.3 L (39.0-53.0) % MCV 98.4 (80.0-100.0) fL MCH 33.3 (25.0-35.0) pg MCHC 33.9 (31.0-37.0) g/dL RDW 14.2 (11.5-15.5) % Plt Count 142 L (150-450) k/uL MPV 7.5 Neutrophils % 67 % Lymphocytes % 14 % Monocytes % 8 % Eosinophils % 8 % Basophils % 1 % Neutrophils # 3.4 (1.3-7.7) k/uL Lymphocytes # 0.7 L (1.0-4.8) k/uL Monocytes # 0.4 (0-1.0) k/uL Eosinophils # 0.4 (0-0.7) k/uL Basophils # 0.0 (0-0.2) k/uL PT 11.2 (10.0-12.5) sec INR 1.0 (<1.2) Sodium (137-145) mmol/L Potassium (3.5-5.1) mmol/L Chloride (98-107) mmol/L Carbon Dioxide (22-30) mmol/L Anion Gap mmol/L BUN (9-20) mg/dL Creatinine (0.66-1.25) mg/dL Est GFR (CKD-EPI)AfAm (>60 ml/min/1.73 sqM) Est GFR (CKD-EPI)NonAf (>60 ml/min/1.73 sqM) Glucose (74-99) mg/dL Plasma Lactic Acid Jese (0.7-2.0) mmol/L Calcium (8.4-10.2) mg/dL Total Bilirubin (0.2-1.3) mg/dL AST (17-59) U/L ALT (4-49) U/L Alkaline Phosphatase (38-126) U/L Troponin I (0.000-0.034) ng/mL Total Protein (6.3-8.2) g/dL Albumin (3.5-5.0) g/dL Urine Color Urine Appearance (Clear) Urine pH (5.0-8.0) Ur Specific [place] (1.001-1.035) Urine Protein (Negative) Urine Glucose (UA) (Negative) Urine Ketones (Negative) Urine Blood (Negative) Urine Nitrite (Negative) Urine Bilirubin (Negative) Urine Urobilinogen (<2.0) mg/dL Ur Leukocyte Esterase (Negative) Urine RBC (0-5) /hpf Urine WBC (0-5) /hpf Urine WBC Clumps (None) /hpf Ur Squamous Epith Cells (0-4) /hpf Hyaline Casts (0-2) /lpf Urine Mucus (None) /hpf Influenza Type A (PCR) Not Detected (Not Detectd) Influenza Type B (PCR) Not Detected (Not Detectd) RSV (PCR) Not Detected (Not Detectd) SARS-CoV-2 (PCR) Not Detected (Not Detectd) 04/17/23 04/17/23 04/17/23 Range/Units 17:40 17:40 17:40 WBC (3.8-10.6) k/uL RBC (4.30-5.90) m/uL Hgb (13.0-17.5) gm/dL Hct (39.0-53.0) % MCV (80.0-100.0) fL MCH (25.0-35.0) pg MCHC (31.0-37.0) g/dL RDW (11.5-15.5) % Plt Count (150-450) k/uL MPV Neutrophils % % Lymphocytes % % Monocytes % % Eosinophils % % Basophils % % Neutrophils # (1.3-7.7) k/uL Lymphocytes # (1.0-4.8) k/uL Monocytes # (0-1.0) k/uL Eosinophils # (0-0.7) k/uL Basophils # (0-0.2) k/uL PT (10.0-12.5) sec INR (<1.2) Sodium 141 (137-145) mmol/L Potassium 3.9 (3.5-5.1) mmol/L Chloride 107 (98-107) mmol/L Carbon Dioxide 23 (22-30) mmol/L Anion Gap 11 mmol/L BUN 30 H (9-20) mg/dL Creatinine 1.27 H (0.66-1.25) mg/dL Est GFR (CKD-EPI)AfAm 58 (>60 ml/min/1.73 sqM) Est GFR (CKD-EPI)NonAf 51 (>60 ml/min/1.73 sqM) Glucose 133 H (74-99) mg/dL Plasma Lactic Acid Jese 1.7 (0.7-2.0) mmol/L Calcium 8.7 (8.4-10.2) mg/dL Total Bilirubin 0.6 (0.2-1.3) mg/dL AST 38 (17-59) U/L ALT 33 (4-49) U/L Alkaline Phosphatase 119 (38-126) U/L Troponin I (0.000-0.034) ng/mL Total Protein 6.4 (6.3-8.2) g/dL Albumin 3.4 L (3.5-5.0) g/dL Urine Color Yellow Urine Appearance Clear (Clear) Urine pH 5.5 (5.0-8.0) Ur Specific [place] 1.024 (1.001-1.035) Urine Protein 2+ H (Negative) Urine Glucose (UA) 2+ H (Negative) Urine Ketones Negative (Negative) Urine Blood Negative (Negative) Urine Nitrite Negative (Negative) Urine Bilirubin Negative (Negative) Urine Urobilinogen <2.0 (<2.0) mg/dL Ur Leukocyte Esterase Small H (Negative) Urine RBC 1 (0-5) /hpf Urine WBC 5 (0-5) /hpf Urine WBC Clumps Rare H (None) /hpf Ur Squamous Epith Cells <1 (0-4) /hpf Hyaline Casts 4 H (0-2) /lpf Urine Mucus Rare H (None) /hpf Influenza Type A (PCR) (Not Detectd) Influenza Type B (PCR) (Not Detectd) RSV (PCR) (Not Detectd) SARS-CoV-2 (PCR) (Not Detectd) 04/17/23 Range/Units 17:40 WBC (3.8-10.6) k/uL RBC (4.30-5.90) m/uL Hgb (13.0-17.5) gm/dL Hct (39.0-53.0) % MCV (80.0-100.0) fL MCH (25.0-35.0) pg MCHC (31.0-37.0) g/dL RDW (11.5-15.5) % Plt Count (150-450) k/uL MPV Neutrophils % % Lymphocytes % % Monocytes % % Eosinophils % % Basophils % % Neutrophils # (1.3-7.7) k/uL Lymphocytes # (1.0-4.8) k/uL Monocytes # (0-1.0) k/uL Eosinophils # (0-0.7) k/uL Basophils # (0-0.2) k/uL PT (10.0-12.5) sec INR (<1.2) Sodium (137-145) mmol/L Potassium (3.5-5.1) mmol/L Chloride (98-107) mmol/L Carbon Dioxide (22-30) mmol/L Anion Gap mmol/L BUN (9-20) mg/dL Creatinine (0.66-1.25) mg/dL Est GFR (CKD-EPI)AfAm (>60 ml/min/1.73 sqM) Est GFR (CKD-EPI)NonAf (>60 ml/min/1.73 sqM) Glucose (74-99) mg/dL Plasma Lactic Acid Jese (0.7-2.0) mmol/L Calcium (8.4-10.2) mg/dL Total Bilirubin (0.2-1.3) mg/dL AST (17-59) U/L ALT (4-49) U/L Alkaline Phosphatase (38-126) U/L Troponin I 0.018 (0.000-0.034) ng/mL Total Protein (6.3-8.2) g/dL Albumin (3.5-5.0) g/dL Urine Color Urine Appearance (Clear) Urine pH (5.0-8.0) Ur Specific [place] (1.001-1.035) Urine Protein (Negative) Urine Glucose (UA) (Negative) Urine Ketones (Negative) Urine Blood (Negative) Urine Nitrite (Negative) Urine Bilirubin (Negative) Urine Urobilinogen (<2.0) mg/dL Ur Leukocyte Esterase (Negative) Urine RBC (0-5) /hpf Urine WBC (0-5) /hpf Urine WBC Clumps (None) /hpf Ur Squamous Epith Cells (0-4) /hpf Hyaline Casts (0-2) /lpf Urine Mucus (None) /hpf Influenza Type A (PCR) (Not Detectd) Influenza Type B (PCR) (Not Detectd) RSV (PCR) (Not Detectd) SARS-CoV-2 (PCR) (Not Detectd) Disposition Clinical Impression: Pneumonia Disposition: HOME SELF-CARE Condition: Good Instructions (If sedation given, give patient instructions): Community Acquired Pneumonia (ED), Dizziness (ED) Additional Instructions: Follow-up with PCP. Report back to ER with any new or worsening symptoms. Prescriptions: Meclizine [Antivert] 25 mg PO DAILY PRN #10 tab PRN Reason: Vertigo Azithromycin [Zithromax Z Pack] 1 tab PO DIRECTED #6 tab Is patient prescribed a controlled substance at d/c from ED?: No Referrals: Tyson Rascon DO [Primary Care Provider] - 1-2 days
[2023-04-17 21:29] VITALS: BP 162/88; PULSE 64; RESP 20; TEMP 97.9
== END 2023-04-17 21:27 | disposition home or self-care (01) ==
LOC: EC 16:28
DX: J18.9 Pneumonia, unspecified organism (principal); E11.9 Type 2 diabetes mellitus without complications; I25.10 Atherosclerotic heart disease of native coronary artery without angina pectoris; I10 Essential (primary) hypertension; E78.5 Hyperlipidemia, unspecified; F41.9 Anxiety disorder, unspecified; F32.A Depression, unspecified; Z79.82 Long term (current) use of aspirin; Z79.899 Other long term (current) drug therapy; Z20.822 Contact with and (suspected) exposure to COVID-19
CPT/HCPCS: 36415; 93005; 80053; 83605; 84484; 85025; 85610; 81001; 87636; 71046; 70450; 99285; 96365; 96375; J0456; J0696

== ENCOUNTER → 2023-04-27 | Outpatient (CLI) | payer MEDICARE, BC ==
--- NOTE | 2023-04-27 21:45 | XR ---
EXAMINATION TYPE: XR chest 2V DATE OF EXAM: 04/27/2023 COMPARISON: 04/17/2023 INDICATION: Pneumonia cough and congestion TECHNIQUE: Frontal and lateral views of the chest are obtained. FINDINGS: The heart size is normal. The pulmonary vasculature is normal. Some mild subsegmental atelectasis or pneumonia may be present at the left base. Clinical correlation recommended. Pacemaker overlies left chest. Sternotomy wires are present. IMPRESSION: 1. Clinical correlation recommended for atelectasis or pneumonia left lung base.
== END | disposition home or self-care (01) ==
LOC: RADXRMAIN 10:44
PROVIDERS: ATTEND Family Medicine
DX: J18.9 Pneumonia, unspecified organism (principal)
CPT/HCPCS: 71046

== ENCOUNTER → 2023-05-03 | Outpatient (CLI) | payer MEDICARE, BC ==
[2023-05-03 16:03] LABS: Chol/HDL Ratio 3.54 Ratio; LDL Cholesterol,Calculated 83.5 mg/dL (0.0-131.0)
== END | disposition home or self-care (01) ==
LOC: LABWHC1 08:22
PROVIDERS: ATTEND Internal Medicine Cardiovascular Disease
DX: I47.20 Ventricular tachycardia, unspecified (principal)
CPT/HCPCS: 36415; 80061; 84443

== ENCOUNTER → 2023-08-16 | Outpatient (CLI) | payer MEDICARE, BC ==
[2023-08-16 16:14] LABS: HGB 11.4 g/dL (13.0-17.0); MCH 31.9 pg (27.0-32.0); MCHC 32.6 g/dL (32.0-37.0); Mean Platelet Volume 9.7 FL (9.5-12.2); NRBC Per 100 WBC 0 X 10*3/uL (0.00-0.01); Platelet Count 162 X 10*3/uL (140-440); RBC 3.57 X 10*6/uL (4.40-5.60); RDW 13.8 % (11.5-14.5); WBC 6.17 X 10*3/uL (4.50-10.00)
[2023-08-16 16:34] LABS: Blood Urea Nitrogen 24.9 mg/dL (9.0-27.0); Calcium 9.2 mg/dL (8.7-10.3); Carbon Dioxide 25.2 mmol/L (21.6-31.8); Chloride 105 mmol/L (96-109); Glucose 110 mg/dL (70-110); Potassium 4.4 mmol/L (3.5-5.5); Sodium 141 mmol/L (135-145)
[2023-08-16 16:35] LABS: NT-Pro-B-Type Natriuretic Pept 9001 pg/mL (0-450)
== END | disposition home or self-care (01) ==
LOC: LABWHC1 10:56
PROVIDERS: ATTEND Internal Medicine Cardiovascular Disease
DX: R06.02 Shortness of breath (principal)
CPT/HCPCS: 36415; 80048; 83880; 85027

== ENCOUNTER 2023-08-17 13:36 | Inpatient (IN) | payer MEDICARE, BC ==
--- NOTE | 2023-08-17 14:20 | ED ---
General Adult HPI - General Chief complaint: Weakness Stated complaint: abd issues Time Seen by Provider: 08/17/23 13:55 Source: patient, RN notes reviewed, old records reviewed Mode of arrival: ambulatory Limitations: no limitations, altered mental status - History of Present Illness Initial comments: This is an 87-year-old male who presents to the emergency department stating for the last month he is becoming weaker and weaker and having more frequent falls. Patient states last night he hit his head he denies loss of conscious he denies neck pain he denies numbness or weakness. Patient states he is also been nauseous for the last month not eating or drinking as much and he feels extremely dry. Patient also complains of abdominal pain he states is a burning sensation and it radiates into his chest occasionally and he states this has been ongoing for a month patient denies any fever or chills that he knows of. Patient denies any cough. Patient denies any dysuria hematuria urinary frequency. Patient denies any pain currently. Patient's friend states he seems a little more confused than his baseline. - Related Data Home Medications Medication Instructions Recorded Confirmed Fenofibrate Nanocrystallized 145 mg PO DAILY 04/03/15 08/17/23 [Tricor] Atorvastatin [Lipitor] 40 mg PO DAILY 10/30/18 08/17/23 Losartan Potassium 50 mg PO DAILY 11/15/20 08/17/23 Sodium Bicarbonate Tab 650 mg PO DAILY 11/15/20 08/17/23 Amiodarone [Cordarone] 200 mg PO DAILY 12/27/20 08/17/23 Metoprolol Tartrate [Lopressor] 50 mg PO BID 08/17/23 08/17/23 Previous Rx's Medication Instructions Recorded Isosorbide Mononitrate ER [Imdur] 30 mg PO DAILY #30 tab.er.24h 01/30/18 Allergies Allergy/AdvReac Type Severity Reaction Status Date / Time No Known Allergies Allergy Verified 08/17/23 18:33 Review of Systems ROS Statement: Those systems with pertinent positive or pertinent negative responses have been documented in the HPI. ROS Other: All systems not noted in ROS Statement are negative. 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 Patient is nontoxic and well- hydrated and is in mild distress. ENT: Neck is soft and supple. No significant lymphadenopathy is noted. Oropharynx is clear. Dry mucous membranes. Neck has full range of motion without eliciting any pain. EYES: The sclera were anicteric and conjunctiva were pink and moist. Extraocular movements were intact and pupils were equal round and reactive to light. Eyelids were unremarkable. PULMONARY: Unlabored respirations. Good breath sounds bilaterally. No audible rales rhonchi or wheezing was noted. CARDIOVASCULAR: There is a regular rate and rhythm without any murmurs gallops or rubs. ABDOMEN: Soft and nontender with normal bowel sounds. SKIN: Skin is clear with no lesions or rashes and otherwise unremarkable. NEUROLOGIC: Patient is alert and oriented x3. Cranial nerves II through XII are grossly intact. Motor and sensory are also intact. Normal speech, volume and content. Symmetrical smile. MUSCULOSKELETAL: Normal extremities with adequate strength and full range of motion. No lower extremity swelling or edema. No calf tenderness. LYMPHATICS: No significant lymphadenopathy is noted PSYCHIATRIC: Normal psychiatric evaluation. Limitations: no limitations Course Vital Signs 08/17/23 08/17/23 08/17/23 13:45 15:00 18:14 Temperature 98.3 F Pulse Rate 81 72 Respiratory 18 20 18 Rate Blood Pressure 167/101 188/110 173/124 O2 Sat by Pulse 95 98 98 Oximetry Medical Decision Making - Medical Decision Making EKG is interpreted by myself. EKG shows a paced rhythm at 65 bpm parables 261 QRS is 114 QT interval 359 QTc is 371. Was pt. sent in by a medical professional or institution (, PA, METER RECORD CLERK, urgent care, hospital, or long-term...) When possible be specific @ -No Did you speak to anyone other than the patient for history (EMS, parent, family, police, friend...)? What history was obtained from this source @ -Patient's friend gave some history. Did you review nursing and triage notes (agree or disagree)? Why? @ -I reviewed and agree with nursing and triage notes Were old charts reviewed (outside hosp., previous admission, EMS record, old EKG, old radiological studies, urgent care reports/EKG's, long-term records)? Report findings @ -I reviewed prior charts and prior lab work on this patient Differential Diagnosis (chest pain, altered mental status, abdominal pain women, abdominal pain men, vaginal bleeding, weakness, fever, dyspnea, syncope, headache, dizziness, GI bleed, back pain, seizure, CVA, palpatations, mental health, musculoskeletal)? @ -Differential Dyspnea: Coronary syndrome, arrhythmia, tamponade, asthma, COPD, pulmonary embolism, pneumonia, pneumothorax, pulmonary effusion, anaphylaxis, diabetic ketoacidosis, flailed chest, pulmonary contusion, diaphragmatic rupture, anemia, neuromuscular, this is not meant to be an all-inclusive list. EKG interpreted by me (3pts min.). @ -As above X-rays interpreted by me (1pt min.). @ -Chest x-ray shows pulmonary edema CT interpreted by me (1pt min.). @ -None done U/S interpreted by me (1pt. min.). @ -None done What testing was considered but not performed or refused? (CT, X-rays, U/S, labs)? Why? @ -None What meds were considered but not given or refused? Why? @ -None Did you discuss the management of the patient with other professionals (professionals i.e. , PA, METER RECORD CLERK, lab, RT, psych nurse, geriatric social worker, carton forming machine tender, teacher, optics technical officer, special education case manager)? Give summary @ -I spoke with Dr. Rascon he agreed to admit the patient admit the patient with admitting orders Was smoking cessation discussed for >3mins.? @ -No Was critical care preformed (if so, how long)? @ -No Were there social determinants of health that impacted care today? How? (Homelessness, low income, unemployed, alcoholism, drug addiction, transportation, low edu. Level, literacy, decrease access to med. care, fci, rehab)? @ -No Was there de-escalation of care discussed even if they declined (Discuss DNR or withdrawal of care, Hospice)? DNR status @ -No What co-morbidities impacted this encounter? (DM, HTN, Smoking, COPD, CAD, Cancer, CVA, ARF, Chemo, Hep., AIDS, mental health diagnosis, sleep apnea, morbid obesity)? @ -None Was patient admitted / discharged? Hospital course, mention meds given and route, prescriptions, significant lab abnormalities, going to OR and other pertinent info. @ -Patient has some pulm edema on the x-ray so I started the patient on some Lasix. Patient's troponin was elevated so I will do serial troponins. Patient did not not complain of chest pain at any time. Patient also states he has been feeling very weak lately in addition to being short of breath with exertion. Undiagnosed new problem with uncertain prognosis? @ -No Drug Therapy requiring intensive monitoring for toxicity (Heparin, Nitro, Insulin, Cardizem)? @ -No Were any procedures done? @ -No Diagnosis/symptom? @ -Pulmonary edema Acute, or Chronic, or Acute on Chronic? @ -Acute Uncomplicated (without systemic symptoms) or Complicated (systemic symptoms)? @ -Complicated Side effects of treatment? @ -No Exacerbation, Progression, or Severe Exacerbation? @ -No Poses a threat to life or bodily function? How? (Chest pain, USA, DE, pneumonia, PE, COPD, DKA, ARF, appy, cholecystitis, CVA, Diverticulitis, Homicidal, Suicidal, threat to staff... and all critical care pts) @ -Yes this could lead to hypoxia and endorgan dysfunction Diagnosis/symptom? @ -Elevated troponin Acute, or Chronic, or Acute on Chronic? @ -Acute Uncomplicated (without systemic symptoms) or Complicated (systemic symptoms)? @ -Complicated Side effects of treatment? @ -None Exacerbation, Progression, or Severe Exacerbation] @ -No Poses a threat to life or bodily function? @ -Yes this can lead to an DE. - Lab Data Result diagrams: 08/17/23 14:17 08/17/23 14:17 Lab Results 08/17/23 08/17/23 08/17/23 Range/Units 14:17 14:17 14:17 WBC 4.6 (3.8-10.6) k/uL RBC 3.68 L (4.30-5.90) m/uL Hgb 11.7 L (13.0-17.5) gm/dL Hct 35.7 L (39.0-53.0) % MCV 97.0 (80.0-100.0) fL MCH 31.8 (25.0-35.0) pg MCHC 32.7 (31.0-37.0) g/dL RDW 13.9 (11.5-15.5) % Plt Count 183 (150-450) k/uL MPV 7.7 Neutrophils % 69 % Lymphocytes % 13 % Monocytes % 10 % Eosinophils % 5 % Basophils % 1 % Neutrophils # 3.2 (1.3-7.7) k/uL Lymphocytes # 0.6 L (1.0-4.8) k/uL Monocytes # 0.5 (0-1.0) k/uL Eosinophils # 0.2 (0-0.7) k/uL Basophils # 0.0 (0-0.2) k/uL PT 11.3 (10.0-12.5) sec INR 1.0 (<1.2) APTT 24.3 (22.0-30.0) sec Sodium (137-145) mmol/L Potassium (3.5-5.1) mmol/L Chloride (98-107) mmol/L Carbon Dioxide (22-30) mmol/L Anion Gap mmol/L BUN (9-20) mg/dL Creatinine (0.66-1.25) mg/dL Est GFR (CKD-EPI)AfAm (>60 ml/min/1.73 sqM) Est GFR (CKD-EPI)NonAf (>60 ml/min/1.73 sqM) Glucose (74-99) mg/dL Plasma Lactic Acid Jese (0.7-2.0) mmol/L Calcium (8.4-10.2) mg/dL Magnesium (1.6-2.3) mg/dL Total Bilirubin (0.2-1.3) mg/dL AST (17-59) U/L ALT (4-49) U/L Alkaline Phosphatase (38-126) U/L Troponin I (0.000-0.034) ng/mL NT-Pro-B Natriuret Pep pg/mL Total Protein (6.3-8.2) g/dL Albumin (3.5-5.0) g/dL Urine Color Yellow Urine Appearance Clear (Clear) Urine pH 6.5 (5.0-8.0) Ur Specific Cactus 1.019 (1.001-1.035) Urine Protein 2+ H (Negative) Urine Glucose (UA) 1+ H (Negative) Urine Ketones Negative (Negative) Urine Blood Negative (Negative) Urine Nitrite Negative (Negative) Urine Bilirubin Negative (Negative) Urine Urobilinogen <2.0 (<2.0) mg/dL Ur Leukocyte Esterase Negative (Negative) Urine WBC 1 (0-5) /hpf Ur Squamous Epith Cells <1 (0-4) /hpf Urine Bacteria Rare H (None) /hpf Urine Mucus Rare H (None) /hpf 08/17/23 08/17/23 08/17/23 Range/Units 14:17 14:17 14:17 WBC (3.8-10.6) k/uL RBC (4.30-5.90) m/uL Hgb (13.0-17.5) gm/dL Hct (39.0-53.0) % MCV (80.0-100.0) fL MCH (25.0-35.0) pg MCHC (31.0-37.0) g/dL RDW (11.5-15.5) % Plt Count (150-450) k/uL MPV Neutrophils % % Lymphocytes % % Monocytes % % Eosinophils % % Basophils % % Neutrophils # (1.3-7.7) k/uL Lymphocytes # (1.0-4.8) k/uL Monocytes # (0-1.0) k/uL Eosinophils # (0-0.7) k/uL Basophils # (0-0.2) k/uL PT (10.0-12.5) sec INR (<1.2) APTT (22.0-30.0) sec Sodium 139 (137-145) mmol/L Potassium 3.8 (3.5-5.1) mmol/L Chloride 112 H (98-107) mmol/L Carbon Dioxide 20 L (22-30) mmol/L Anion Gap 7 mmol/L BUN 29 H (9-20) mg/dL Creatinine 1.37 H (0.66-1.25) mg/dL Est GFR (CKD-EPI)AfAm 53 (>60 ml/min/1.73 sqM) Est GFR (CKD-EPI)NonAf 46 (>60 ml/min/1.73 sqM) Glucose 110 H (74-99) mg/dL Plasma Lactic Acid Jese 1.3 (0.7-2.0) mmol/L Calcium 8.6 (8.4-10.2) mg/dL Magnesium 1.4 L (1.6-2.3) mg/dL Total Bilirubin 1.2 (0.2-1.3) mg/dL AST 27 (17-59) U/L ALT 15 (4-49) U/L Alkaline Phosphatase 87 (38-126) U/L Troponin I 0.061 H* (0.000-0.034) ng/mL NT-Pro-B Natriuret Pep pg/mL Total Protein 5.9 L (6.3-8.2) g/dL Albumin 3.1 L (3.5-5.0) g/dL Urine Color Urine Appearance (Clear) Urine pH (5.0-8.0) Ur Specific Cactus (1.001-1.035) Urine Protein (Negative) Urine Glucose (UA) (Negative) Urine Ketones (Negative) Urine Blood (Negative) Urine Nitrite (Negative) Urine Bilirubin (Negative) Urine Urobilinogen (<2.0) mg/dL Ur Leukocyte Esterase (Negative) Urine WBC (0-5) /hpf Ur Squamous Epith Cells (0-4) /hpf Urine Bacteria (None) /hpf Urine Mucus (None) /hpf 08/17/23 Range/Units 14:17 WBC (3.8-10.6) k/uL RBC (4.30-5.90) m/uL Hgb (13.0-17.5) gm/dL Hct (39.0-53.0) % MCV (80.0-100.0) fL MCH (25.0-35.0) pg MCHC (31.0-37.0) g/dL RDW (11.5-15.5) % Plt Count (150-450) k/uL MPV Neutrophils % % Lymphocytes % % Monocytes % % Eosinophils % % Basophils % % Neutrophils # (1.3-7.7) k/uL Lymphocytes # (1.0-4.8) k/uL Monocytes # (0-1.0) k/uL Eosinophils # (0-0.7) k/uL Basophils # (0-0.2) k/uL PT (10.0-12.5) sec INR (<1.2) APTT (22.0-30.0) sec Sodium (137-145) mmol/L Potassium (3.5-5.1) mmol/L Chloride (98-107) mmol/L Carbon Dioxide (22-30) mmol/L Anion Gap mmol/L BUN (9-20) mg/dL Creatinine (0.66-1.25) mg/dL Est GFR (CKD-EPI)AfAm (>60 ml/min/1.73 sqM) Est GFR (CKD-EPI)NonAf (>60 ml/min/1.73 sqM) Glucose (74-99) mg/dL Plasma Lactic Acid Jese (0.7-2.0) mmol/L Calcium (8.4-10.2) mg/dL Magnesium (1.6-2.3) mg/dL Total Bilirubin (0.2-1.3) mg/dL AST (17-59) U/L ALT (4-49) U/L Alkaline Phosphatase (38-126) U/L Troponin I (0.000-0.034) ng/mL NT-Pro-B Natriuret Pep 86279 pg/mL Total Protein (6.3-8.2) g/dL Albumin (3.5-5.0) g/dL Urine Color Urine Appearance (Clear) Urine pH (5.0-8.0) Ur Specific Cactus (1.001-1.035) Urine Protein (Negative) Urine Glucose (UA) (Negative) Urine Ketones (Negative) Urine Blood (Negative) Urine Nitrite (Negative) Urine Bilirubin (Negative) Urine Urobilinogen (<2.0) mg/dL Ur Leukocyte Esterase (Negative) Urine WBC (0-5) /hpf Ur Squamous Epith Cells (0-4) /hpf Urine Bacteria (None) /hpf Urine Mucus (None) /hpf Disposition Clinical Impression: Elevated troponin, Pulmonary edema, Multiple falls Disposition: ADMITTED IP TO THIS [facility] Referrals: Tyson Rascon DO [Primary Care Provider] - 1-2 days Time of Disposition: 18:52
[2023-08-17] MEDS: SODIUM CHLORIDE 0.9% 1,000 ML IV STA (14:29)
[2023-08-17 14:35] LABS: Basophils % (A) 1 %; Eosinophils # (A) 0.2 k/uL (0-0.7); Eosinophils % (A) 5 %; HCT 35.7 % (39.0-53.0); HGB 11.7 gm/dL (13.0-17.5); Lymphocytes # (A) 0.6 k/uL (1.0-4.8); Lymphocytes % (A) 13 %; MCH 31.8 pg (25.0-35.0); MCHC 32.7 g/dL (31.0-37.0); Mean Platelet Volume 7.7; Monocytes # (A) 0.5 k/uL (0-1.0); Monocytes % (A) 10 %; Neutrophils # (A) 3.2 k/uL (1.3-7.7); Neutrophils % (A) 69 %; Platelet Count 183 k/uL (150-450); RBC 3.68 m/uL (4.30-5.90); RDW 13.9 % (11.5-15.5); WBC 4.6 k/uL (3.8-10.6)
[2023-08-17 14:43] LABS: Partial Thromboplastin Time 24.3 sec (22.0-30.0); Prothrombin Time 11.3 sec (10.0-12.5)
[2023-08-17 14:52] LABS: ALT 15 U/L (4-49); AST 27 U/L (17-59); African American GFR (CKD) 53 (>60 ml/min/1.73 sqM); Albumin 3.1 g/dL (3.5-5.0); Alkaline Phosphatase 87 U/L (38-126); Anion Gap 7 mmol/L; Blood Urea Nitrogen 29 mg/dL (9-20); Calcium 8.6 mg/dL (8.4-10.2); Carbon Dioxide 20 mmol/L (22-30); Chloride 112 mmol/L (98-107); Glucose 110 mg/dL (74-99); Magnesium 1.4 mg/dL (1.6-2.3); Non-African American GFR(CKD) 46 (>60 ml/min/1.73 sqM); Potassium 3.8 mmol/L (3.5-5.1); Sodium 139 mmol/L (137-145); Total Bilirubin 1.2 mg/dL (0.2-1.3); Total Protein 5.9 g/dL (6.3-8.2)
--- NOTE | 2023-08-17 15:21 | XR ---
EXAMINATION TYPE: XR chest 2V DATE OF EXAM: 08/17/2023 3:01 PM CLINICAL INDICATION:Male, 87 years old with history of Weakness; COMPARISON: Chest radiographs from 04/19/2023. TECHNIQUE: XR chest 2V Frontal and lateral views of the chest. FINDINGS: Lungs/Pleura: No evidence of focal consolidation or pneumothorax. Blunting of the costophrenic angles is present. Pulmonary vascularity: Unremarkable. Heart/mediastinum: Cardiomediastinal silhouette is enlarged and stable. Atherosclerotic calcificatio ns are seen in the aorta. Two lead cardiac conduction device overlying the left hemithorax with lead tips projecting over the right ventricle and right atrium. Musculoskeletal: No acute osseous pathology. Midline sternotomy wires are noted. Other findings: None IMPRESSION: Cardiomegaly, pulmonary vascular congestion and bilateral pleural effusions. Correlate with BNP for c ongestive heart failure.
[2023-08-17 15:28] LABS: Appearance,Urine Clear (Clear); Bacteria,Urine Rare /hpf; Bilirubin,Urine Negative (Negative); Blood,Urine Negative (Negative); Color,Urine Yellow; Glucose,Urine (UA) 1+ (Negative); Ketones,Urine Negative (Negative); Leukocyte Esterase,Urine Negative (Negative); Mucus,Urine Rare /hpf; Nitrite,Urine Negative (Negative); PH, Urine 6.5 (5.0-8.0); Protein,Urine 2+ (Negative); Specific Gravity,Urine 1.019 (1.001-1.035); Squamous Epithelial Cell,Urine <1 /hpf (0-4); Urobilinogen,Urine <2.0 mg/dL (<2.0); WBC,Urine 1 /hpf (0-5)
--- NOTE | 2023-08-17 16:21 | CT ---
EXAMINATION TYPE: CT brain cspine wo con CT DLP: 1528.3 mGycm, Automated exposure control for dose reduction was used. DATE OF EXAM: 08/17/2023 2:55 PM COMPARISON: 04/07/2023. CLINICAL INDICATION:Male, 87 years old with history of Trauma; Fall. TECHNIQUE: Brain: Multiple axial CT images of the brain were obtained without IV contrast. Cspine: Axial CT images from the skull base to the inferior aspect of T2 we obtained without intraven ous contrast. Coronal and sagittal reformatted images were also reviewed. FINDINGS: Brain: Extra-axial spaces: No abnormal extra-axial fluid collections. Ventricular system: Dilatation in proportion to cerebral atrophy. Cerebral parenchyma: Cerebral atrophy. No acute intraparenchymal hemorrhage or mass effect. The hutchinson -white junction is well differentiated. Scattered hypoattenuating areas are seen within the white mat ter. Cerebellum: Unremarkable. Mass effect: No evidence of midline shift. Intracranial vasculature: unremarkable Soft tissues: Normal. Calvarium/osseous structures: No depressed skull fracture. Paranasal sinuses and mastoid air cells: Clear. Visualized orbits: Post traumatic/treatment changes the right orbit. Cervical spine: Fracture: None. Osseous structures: Multilevel degenerative disc disease changes with endplate spurring and disc oste ophyte complex's. Vertebral alignment: Within normal limits. Spinal canal/Neural Foramina: No evidence of significant spinal canal narrowing. No evidence for sign ificant neural foraminal stenosis. Neck soft tissues: Prevertebral soft tissues are within normal limits. Other: The airway is patent. The lung apices are clear. Atherosclerosis of the carotid bifurcations. IMPRESSION: 1. No acute intracranial process. 2. Nonspecific white matter changes, likely secondary to chronic small vessel ischemic disease. 3. No evidence of cervical spine fracture. 4. Moderate to severe multilevel degenerative disc disease.
[2023-08-17] MEDS: MAGNESIUM SULFATE-D5W PMX 1 GM in DEXTROSE/WATER 1 100ML.BAG IVPB ONE (18:13)
[2023-08-17] MEDS: FUROSEMIDE 10 MG/ML 10 ML VIAL IV STA (19:13)
[2023-08-17] MEDS: LABETALOL 5 MG/ML VIAL MDV IVP STA (21:21)
[2023-08-18] MEDS: METOPROLOL TARTRATE 50 MG TAB PO SCH ×2 (03:39→10:33)
[2023-08-18] MEDS: FUROSEMIDE 10 MG/ML 4 ML VIAL IV SCH (04:27)
[2023-08-18] MEDS: AMIODARONE 200 MG TAB PO SCH (10:21)
[2023-08-18] MEDS: FENOFIBRATE 160 MG TAB PO SCH (10:21)
[2023-08-18] MEDS: SODIUM BICARBONATE TAB 650 MG TAB PO SCH (10:21)
[2023-08-18] MEDS: ISOSORBIDE MONONITRATE ER 30 MG TAB.ER.24H PO SCH (10:21)
[2023-08-18] MEDS: ATORVASTATIN 40 MG TAB PO SCH (10:21)
[2023-08-18] MEDS: LOSARTAN 25 MG TAB PO STA (10:34)
[2023-08-18] MEDS: LOSARTAN 50 MG TAB PO SCH (10:36)
[2023-08-18 11:53] LABS: African American GFR (CKD) 48 (>60 ml/min/1.73 sqM); Anion Gap 10 mmol/L; Blood Urea Nitrogen 26 mg/dL (9-20); Calcium 8.7 mg/dL (8.4-10.2); Carbon Dioxide 26 mmol/L (22-30); Chloride 106 mmol/L (98-107); Glucose 145 mg/dL (74-99); Magnesium 1.5 mg/dL (1.6-2.3); Non-African American GFR(CKD) 41 (>60 ml/min/1.73 sqM); Potassium 3.1 mmol/L (3.5-5.1); Sodium 142 mmol/L (137-145)
[2023-08-18] MEDS: MAGNESIUM SULFATE-D5W PMX 1 GM in DEXTROSE/WATER 1 100ML.BAG IVPB SCH (12:34)
[2023-08-18] MEDS: POTASSIUM CHLORIDE ER 20 MEQ TAB.ER PO SCH (12:34)
[2023-08-18] MEDS: PANTOPRAZOLE 40 MG/10 ML VIAL IVP SCH (12:35)
[2023-08-18] MEDS ORDERED: HEPARIN SODIUM 1,000 UN/ML (10ML VL) IV PRN (13:21)
[2023-08-18] MEDS: HEPARIN SODIUM 1,000 UN/ML (10ML VL) IV ONE (13:53)
[2023-08-18] MEDS: HEPARIN SOD,PORK IN 0.45% NACL 25,000 UNIT in 0.45% NACL 1 250ML.BAG IV SCH (13:53)
[2023-08-18 14:34] LABS: Basophils # (A) 0.1 k/uL (0-0.2); Basophils % (A) 1 %; Eosinophils # (A) 0.3 k/uL (0-0.7); Eosinophils % (A) 4 %; HCT 35.2 % (39.0-53.0); HGB 11.6 gm/dL (13.0-17.5); Lymphocytes # (A) 0.6 k/uL (1.0-4.8); Lymphocytes % (A) 11 %; MCH 32.5 pg (25.0-35.0); MCV 98.4 fL (80.0-100.0); Monocytes # (A) 0.6 k/uL (0-1.0); Monocytes % (A) 11 %; Neutrophils # (A) 4.1 k/uL (1.3-7.7); Neutrophils % (A) 70 %; Platelet Count 188 k/uL (150-450); RBC 3.58 m/uL (4.30-5.90); RDW 14.3 % (11.5-15.5); WBC 5.9 k/uL (3.8-10.6)
[2023-08-18 14:49] LABS: INR 1.1 (<1.2); Partial Thromboplastin Time 25.1 sec (22.0-30.0); Prothrombin Time 11.4 sec (10.0-12.5)
[2023-08-18] MEDS ORDERED: DEXTROSE 50% SYRINGE 50 ML IVP PRN ×2 (15:53)
[2023-08-18] MEDS: MAGNESIUM SULFATE-D5W PMX 1 GM in DEXTROSE/WATER 1 100ML.BAG IVPB ONE (16:13)
[2023-08-18 16:17] LABS: Glucose,Whole Blood 127 mg/dL (70-110)
[2023-08-18] MEDS: INSULIN ASPART (NovoLOG) 100 UNIT/ML VIAL SQ SCH (16:43)
--- NOTE | 2023-08-18 17:12 | P.HPIM ---
History of Present Illness H&P Date: 08/18/23 Chief Complaint: Recent falls, increased generalized weakness, increased peggy rtness of breath This is a pleasant 87-year-old gentleman with past medical history significant of right eye blindness,CAD, history of CABG, diabetes mellitus, hypertension, hyperlipidemia,: CTA, anxiety, depression and multiple other medical issues, reported recent falls, increasing generalized weakness accompanied by increase in shortness of breath. Denies syncope..Chest x-ray reported cardiomegaly, pulmonary vascular congestion and bilateral pleural effusions. Afebrile, normal WBC. Complained to the ER about fluctuating chest pressure throughout the last month, elevated troponins 0.061, 0.057, 0.077. EKG reported paced.hemoglobin 11.6, platelets 188, D-dimer elevated 1.84. Creatinine post CT of head/cervical spine 1.5 .Head/cervical spine CT reported no acute intracranial process, nonspecific white matter changes likely secondary to chronic small vessel ischemic disease, no evidence of cervical spine fracture, moderate to severe multilevel degenerative disc disease. Currently diuresing on IV push Lasix, anticoagulated on heparin drip. Sodium 142, potassium 3.1, bicarb 26, BUN 26, creatinine 1.5. Magnesium 1.5. On admission hypertensive with blood pressures are 167/101, 188/110, 173/124, currently 137/89. Denies Chest Pain, Palpitations or increased shortness of breath. Maintaining O2 sats of 90% on room air. Review of Systems ROS Statement: Those systems with pertinent positive or pertinent negative responses have been documented in the HPI. ROS Other: All systems not noted in ROS Statement are negative. 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 Past Anesthesia/Blood Transfusion Reactions: No Reported Reaction Type of Cardiac Device: AICD Device Placement Date:: 11/16 Past Psychological History: Anxiety, Depression Additional Psychological History / Comment(s): pt states he lives home and his nephew recently moved in since his . Smoking Status: Never smoker Past Alcohol Use History: None Reported Past Drug Use History: None Reported - Past Family History Mother Family Medical History: No Reported History Medications and Allergies Home Medications Medication Instructions Recorded Confirmed Type Fenofibrate Nanocrystallized 145 mg PO DAILY 04/03/15 08/17/23 History [Tricor] Isosorbide Mononitrate ER [Imdur] 30 mg PO DAILY #30 tab.er.24h 01/30/18 0 08/17/23 Rx Atorvastatin [Lipitor] 40 mg PO DAILY 10/30/18 08/17/23 History Losartan Potassium 50 mg PO DAILY 11/15/20 08/17/23 History Sodium Bicarbonate Tab 650 mg PO DAILY 11/15/20 08/17/23 History Amiodarone [Cordarone] 200 mg PO DAILY 12/27/20 08/17/23 History Metoprolol Tartrate [Lopressor] 50 mg PO BID 08/17/23 08/17/23 History Allergies Allergy/AdvReac Type Severity Reaction Status Date / Time No Known Allergies Allergy Verified 08/17/23 18:33 Physical Exam Vitals: Vital Signs Temp Pulse Pulse Resp BP BP Pulse Ox 08/18/23 08:00 97.6 F 105 H 18 137/89 96 08/18/23 07:57 90 L 08/18/23 04:00 97.9 F 78 142/78 08/18/23 00:00 98.0 F 60 19 124/89 96 08/17/23 23:00 65 19 124/94 08/17/23 19:14 98.2 F 76 18 143/71 97 08/17/23 18:58 74 18 180/81 08/17/23 18:14 18 173/124 98 08/17/23 15:00 72 20 188/110 98 08/17/23 13:45 98.3 F 81 18 167/101 95 Intake and Output 08/17/23 08/18/23 08/18/23 22:59 06:59 14:59 Output Total 450 1200 Balance -450 -1200 Output: Urine 450 1200 Other: Weight 90.718 kg VITAL SIGNS: As above GENERAL: Pleasant, alert and oriented x 3, sitting up on stretcher, no acute distress HEENT: Atraumatic ,Conjunctivae normal. Oral mucosa moist, right lower side of jaw bruising NECK: Supple, no JVD. No thyroid enlargement. No LNs CARDIOVASCULAR: S1, S2 regular.systolic murmur, no gallops, no rubs. RESPIRATION: Unlabored, equal air entry breath sounds diminished in the bases. No rhonchi or crackles. No wheezing, No bronchial breathing. ABDOMEN: Soft, nondistended, nontender. No guarding, no rigidity, no masses appreciated, positive bowel sounds. LEGS: No edema. no swelling. NERVOUS SYSTEM: Cranial N 2-12 grossly normal. Moves all 4 limbs. No focal deficits. Strength and sensation grossly intact. Skin: Warm and dry, no rash Results CBC & Chem 7: 08/18/23 13:50 08/18/23 11:34 Labs: Abnormal Lab Results - Last 24 Hours (Table) 08/17/23 08/17/23 08/17/23 Range/Units 14:17 14:17 14:17 RBC 3.68 L (4.30-5.90) m/uL Hgb 11.7 L (13.0-17.5) gm/dL Hct 35.7 L (39.0-53.0) % Lymphocytes # 0.6 L (1.0-4.8) k/uL Potassium (3.5-5.1) mmol/L Chloride 112 H (98-107) mmol/L Carbon Dioxide 20 L (22-30) mmol/L BUN 29 H (9-20) mg/dL Creatinine 1.37 H (0.66-1.25) mg/dL Glucose 110 H (74-99) mg/dL Magnesium 1.4 L (1.6-2.3) mg/dL Troponin I (0.000-0.034) ng/mL Total Protein 5.9 L (6.3-8.2) g/dL Albumin 3.1 L (3.5-5.0) g/dL Urine Protein 2+ H (Negative) Urine Glucose (UA) 1+ H (Negative) Urine Bacteria Rare H (None) /hpf Urine Mucus Rare H (None) /hpf 08/17/23 08/17/23 08/18/23 Range/Units 14:17 19:15 02:09 RBC (4.30-5.90) m/uL Hgb (13.0-17.5) gm/dL Hct (39.0-53.0) % Lymphocytes # (1.0-4.8) k/uL Potassium (3.5-5.1) mmol/L Chloride (98-107) mmol/L Carbon Dioxide (22-30) mmol/L BUN (9-20) mg/dL Creatinine (0.66-1.25) mg/dL Glucose (74-99) mg/dL Magnesium (1.6-2.3) mg/dL Troponin I 0.061 H* 0.057 H* 0.077 H* (0.000-0.034) ng/mL Total Protein (6.3-8.2) g/dL Albumin (3.5-5.0) g/dL Urine Protein (Negative) Urine Glucose (UA) (Negative) Urine Bacteria (None) /hpf Urine Mucus (None) /hpf 08/18/23 Range/Units 11:34 RBC (4.30-5.90) m/uL Hgb (13.0-17.5) gm/dL Hct (39.0-53.0) % Lymphocytes # (1.0-4.8) k/uL Potassium 3.1 L (3.5-5.1) mmol/L Chloride (98-107) mmol/L Carbon Dioxide (22-30) mmol/L BUN 26 H (9-20) mg/dL Creatinine 1.50 H (0.66-1.25) mg/dL Glucose 145 H (74-99) mg/dL Magnesium 1.5 L (1.6-2.3) mg/dL Troponin I (0.000-0.034) ng/mL Total Protein (6.3-8.2) g/dL Albumin (3.5-5.0) g/dL Urine Protein (Negative) Urine Glucose (UA) (Negative) Urine Bacteria (None) /hpf Urine Mucus (None) /hpf Assessment and Plan Assessment: -Mildly elevated troponins, hypertensive urgency on admission, complaints of fluctuating chest pain accompanied by increased shortness of breath, with elevated D-dimer, VQ scan ordered. Chest x-ray reporting pulmonary edema, echo ordered. -Recent falls, increased generalized weakness -Chronic kidney disease, stage III secondary to diabetes mellitus, baseline 1.3- 1.5 -CAD with history of CABG -Diabetes mellitus, hyperglycemic, hemoglobin A1c ordered -Hypertension -Hyperlipidemia -Hypokalemia -Hypomagnesemia -DDD -Gait dysfunction uses a cane and sometimes a walker Plan: Continue on current medication regimen ,monitoring and symptomatic treatment. PT/OT. UA with culture ordered. V/Q,echo ordered. Potassium and magnesium supplemented. diuretics .close monitoring of renal function and electrolytes with repeat labs ordered for a.m. Cardiology consult in place with recommendations pending. Anticoagulation with heparin drip . Social work consult in place regarding living situation concerns. Recently his nephew and nephew's girlfriend moved in with him, distressed over this arrangement, would like to "kick them out", but feels desperate as he needs assistance at home. Initially on emergency contact, noted- nephew was listed as "son" as relationship to patient,corrected. The impression and plan of care has been dictated as directed. : I performed a history and examination of this patient, discussed the same with the dictator. I agree with the dictator's note ,documented as a scribe. Any additional findings or plans will be noted.
[2023-08-18] MEDS: INSULIN DETEMIR (LEVEMIR) 100 UNIT/ML SYR SQ SCH (17:17)
--- NOTE | 2023-08-18 18:32 | P.CRDCN ---
History of Present Illness History of present illness: HISTORY OF PRESENT ILLNESS: This is a 87-year-old male with a past medical history significant for coronary artery disease with previous CABG, hypertension, hyperlipidemia, aortic stenosi s, and cardiomyopathy with previous AICD implantation. Patient follows in the office with Dr. Ortiz. We have been asked to see the patient in consultation for congestive heart failure. Patient examined at the bedside in the emergency room. Patient states he presented to the hospital with a chief complaint of shortness of breath. He states he has been feeling mildly short of breath for the past f ew days. He also reports having palpitations over the past few days at home which seem to be worse with exertion. He denies having any chest pain or pressure. Bedside telemetry and repeat EKG performed revealed suspected atrial flutter. The patient denies any history of atrial flutter or atrial fibrillation. He is on amiodarone on an outpatient basis for history of ventricular tachycardia. The patient is also having runs of nonsustained VT during examination. DIAGNOSTICS: - EKG reveals atrial paced rhythm. Repeat EKG performed during examination reveals suspected atrial flutter - Chest xray cardiomegaly, pulmonary vascular congestion and bilateral pleural effusions. - Laboratory data: WBC 4.6. Hemoglobin 11.7. Platelet count 183. Sodium 139. Potassium 3.8. BUN 29. Creatinine 1.34. Lactic acid 1.3. Troponin 0.061. 0.057. 0.077. proBNP 11,200. - Current home cardiac medications include amiodarone 200 mg daily, Lipitor 40 mg daily, fenofibrate 145 mg daily, Imdur 30 mg daily, losartan 50 mg daily, metoprolol titrate 50 mg twice a day. - Most recent echocardiogram obtained in September 2022 revealed ejection fraction 50%, mild MR, mild to moderate TR, trace aortic regurgitation and moderate aortic stenosis -Patient underwent three-vessel CABG in 1995: KALA, VGD1, VGOM1 REVIEW OF SYSTEMS: At the time of my exam: CONSTITUTIONAL: Denies fever or chills. HEENT: Denies blurred vision, vision changes, or eye pain. Denies hemoptysis CARDIOVASCULAR: Denies chest pain. Denies orthopnea. Denies PND. Denies palpitations RESPIRATORY: Denies shortness of breath. GASTROINTESTINAL: Denies abdominal pain. Denies nausea or vomiting. HEMATOLOGIC: Denies bleeding disorders. GENITOURINARY: Denies any blood in urine. SKIN: Denies pruitis. Denies rash. PHYSICAL EXAM: VITAL SIGNS: Reviewed. GENERAL: Well-developed in no acute distress. HEENT: Head is normocephalic. Pupils are equal, round. Sclerae anicteric. Mucous membranes of the mouth are moist. Neck supple. No JVD or thyromegaly LUNGS: Respirations even and unlabored. Lungs essentially clear to auscultation bilaterally. HEART: Tachycardic. Regular rate and rhythm. S1 and S2 heard. Systolic murmur noted ABDOMEN: Soft. Nondistended. Nontender. EXTREMITIES: Normal range of motion. No clubbing or cyanosis. Peripheral pulses intact. Trace bilateral lower extremity edema NEUROLOGIC: Awake and alert. Oriented x 3. ASSESSMENT: Shortness of breath with exertion Acute heart failure with preserved EF, EF 50% in 2022 Nonsustained ventricular tachycardia, on amiodarone outpatient Suspected new onset atrial flutter Abnormal troponins, flat, not suggestive of acute coronary syndrome History of ischemic cardiomyopathy with improved EF History of AICD implantation Coronary artery disease with previous three-vessel CABG in 1995: [place], VGD1, VGOM1 Valvular heart disease including mild MR, mild to moderate TR, trace AR, and moderate Hypertension Hyperlipidemia Hypomagnesemia Hypokalemia PLAN: Obtain 2D echo to assess cardiac structure and function EKG completed during examination reveals possible atrial flutter Interrogate AICD for further evaluation and to assess for arrhythmia such as a trial flutter/fibrillation. Will wait on heparinization pending AICD report Decrease losartan to 25 mg daily Increase metoprolol to 75 mg twice a day Replace magnesium and potassium Continue IV Lasix 40 mg every 8 hours Discontinue sodium tablets (patient taking on an outpatient basis) Daily weights, accurate intake and output, and monitoring of kidney function Further recommendations pending patient course Nurse practitioner note has been reviewed by physician. Signing provider agrees with the documented findings, assessment, and plan of care documented by [employer] as a scribe. 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 Past Anesthesia/Blood Transfusion Reactions: No Reported Reaction Type of Cardiac Device: AICD Device Placement Date:: 11/16 Past Psychological History: Anxiety, Depression Additional Psychological History / Comment(s): pt states he lives home and his nephew recently moved in since his . Smoking Status: Never smoker Past Alcohol Use History: None Reported Past Drug Use History: None Reported - Past Family History Mother Family Medical History: No Reported History Medications and Allergies Home Medications Medication Instructions Recorded Confirmed Type Fenofibrate Nanocrystallized 145 mg PO DAILY 04/03/15 08/17/23 History [Tricor] Isosorbide Mononitrate ER [Imdur] 30 mg PO DAILY #30 tab.er.24h 01/30/18 08/17/23 Rx Atorvastatin [Lipitor] 40 mg PO DAILY 10/30/18 08/17/23 History Losartan Potassium 50 mg PO DAILY 11/15/20 08/17/23 History Sodium Bicarbonate Tab 650 mg PO DAILY 11/15/20 08/17/23 History Amiodarone [Cordarone] 200 mg PO DAILY 12/27/20 08/17/23 History Metoprolol Tartrate [Lopressor] 50 mg PO BID 08/17/23 08/17/23 History Allergies Allergy/AdvReac Type Severity Reaction Status Date / Time No Known Allergies Allergy Verified 08/17/23 18:33 Physical Exam Vitals: Vital Signs Temp Pulse Pulse Resp BP BP Pulse Ox 08/18/23 07:57 90 L 08/18/23 04:00 97.9 F 78 142/78 08/18/23 00:00 98.0 F 60 19 124/89 96 08/17/23 23:00 65 19 124/94 08/17/23 19:14 98.2 F 76 18 143/71 97 08/17/23 18:58 74 18 180/81 08/17/23 18:14 18 173/124 98 08/17/23 15:00 72 20 188/110 98 08/17/23 13:45 98.3 F 81 18 167/101 95 Intake and Output 08/17/23 08/18/23 08/18/23 22:59 06:59 14:59 Output Total 450 1200 Balance -450 -1200 Output: Urine 450 1200 Other: Weight 90.718 kg Results 08/18/23 13:50 08/18/23 11:34 Cardiac Enzymes 08/17/23 08/17/23 08/17/23 Range/Units 14:17 14:17 19:15 AST 27 (17-59) U/L Troponin I 0.061 H* 0.057 H* (0.000-0.034) ng/mL 08/18/23 Range/Units 02:09 AST (17-59) U/L Troponin I 0.077 H* (0.000-0.034) ng/mL Coagulation 08/17/23 Range/Units 14:17 PT 11.3 (10.0-12.5) sec APTT 24.3 (22.0-30.0) sec CBC 08/17/23 Range/Units 14:17 WBC 4.6 (3.8-10.6) k/uL RBC 3.68 L (4.30-5.90) m/uL Hgb 11.7 L (13.0-17.5) gm/dL Hct 35.7 L (39.0-53.0) % Plt Count 183 (150-450) k/uL Comprehensive Metabolic Panel 08/17/23 Range/Units 14:17 Sodium 139 (137-145) mmol/L Potassium 3.8 (3.5-5.1) mmol/L Chloride 112 H (98-107) mmol/L Carbon Dioxide 20 L (22-30) mmol/L BUN 29 H (9-20) mg/dL Creatinine 1.37 H (0.66-1.25) mg/dL Glucose 110 H (74-99) mg/dL Calcium 8.6 (8.4-10.2) mg/dL AST 27 (17-59) U/L ALT 15 (4-49) U/L Alkaline Phosphatase 87 (38-126) U/L Total Protein 5.9 L (6.3-8.2) g/dL Albumin 3.1 L (3.5-5.0) g/dL Current Medications Generic Name Dose Route Start Last Admin Trade Name Freq PRN Reason Stop Dose Admin Amiodarone HCl 200 mg 08/18/23 09:00 Amiodarone 200 Mg Tab PO DAILY MICHAEL Atorvastatin Calcium 40 mg 08/18/23 09:00 Atorvastatin 40 Mg Tab PO DAILY [facility] Fenofibrate 160 mg 08/18/23 09:00 Fenofibrate 160 Mg Tab PO DAILY [facility] Furosemide 40 mg 08/18/23 03:00 08/18/23 04:27 Furosemide 10 Mg/Ml 4 Ml Vial IV Not Given Q8H MICHAEL Isosorbide Mononitrate 30 mg 08/18/23 09:00 Isosorbide Mononitrate Er 30 Mg Tab.Er.24h PO DAILY [facility] Losartan Potassium 50 mg 08/18/23 09:00 Losartan 50 Mg Tab PO DAILY [facility] Metoprolol Tartrate 50 mg 08/17/23 21:00 08/18/23 03:39 Metoprolol Tartrate 50 Mg Tab PO Not Given BID [facility] Sodium Bicarbonate 650 mg 08/18/23 09:00 Sodium Bicarbonate Tab 650 Mg Tab PO DAILY [facility] Intake and Output 08/17/23 08/18/23 08/18/23 22:59 06:59 14:59 Output Total 450 1200 Balance -450 -1200 Output: Urine 450 1200 Other: Weight 90.718 kg 08/17/23 14:17 08/17/23 14:17
[2023-08-18 18:41] LABS: Appearance,Urine Clear (Clear); Bacteria,Urine Rare /hpf; Bilirubin,Urine Negative (Negative); Blood,Urine Trace (Negative); Color,Urine Colorless; Glucose,Urine (UA) Trace (Negative); Hyaline Casts,Urine 3 /lpf (0-2); Ketones,Urine Negative (Negative); Leukocyte Esterase,Urine Negative (Negative); Mucus,Urine Rare /hpf; Nitrite,Urine Negative (Negative); PH, Urine 5.5 (5.0-8.0); Protein,Urine 2+ (Negative); RBC,Urine 1 /hpf (0-5); Urobilinogen,Urine <2.0 mg/dL (<2.0); WBC,Urine <1 /hpf (0-5)
[2023-08-18 20:32] LABS: Glucose,Whole Blood 177 mg/dL (70-110)
[2023-08-18] MEDS ORDERED: METOPROLOL TARTRATE 50 MG TAB PO SCH (21:00)
[2023-08-19 05:23] LABS: Basophils # (A) 0.1 k/uL (0-0.2); Basophils % (A) 1 %; Eosinophils # (A) 0.4 k/uL (0-0.7); Eosinophils % (A) 6 %; HCT 35.5 % (39.0-53.0); Lymphocytes % (A) 17 %; MCH 33.3 pg (25.0-35.0); MCHC 33.8 g/dL (31.0-37.0); MCV 98.5 fL (80.0-100.0); Mean Platelet Volume 7.8; Monocytes # (A) 0.5 k/uL (0-1.0); Monocytes % (A) 9 %; Neutrophils # (A) 3.6 k/uL (1.3-7.7); Neutrophils % (A) 63 %; Platelet Count 181 k/uL (150-450); RDW 14.4 % (11.5-15.5); WBC 5.7 k/uL (3.8-10.6)
[2023-08-19 06:10] LABS: INR 1.1 (<1.2); Prothrombin Time 11.8 sec (10.0-12.5)
[2023-08-19 06:16] LABS: Glucose,Whole Blood 129 mg/dL (70-110)
[2023-08-19 06:21] LABS: African American GFR (CKD) 39 (>60 ml/min/1.73 sqM); Anion Gap 9 mmol/L; Blood Urea Nitrogen 32 mg/dL (9-20); Calcium 8.9 mg/dL (8.4-10.2); Carbon Dioxide 24 mmol/L (22-30); Chloride 107 mmol/L (98-107); Glucose 138 mg/dL (74-99); Non-African American GFR(CKD) 34 (>60 ml/min/1.73 sqM); Potassium 4.6 mmol/L (3.5-5.1); Sodium 140 mmol/L (137-145)
--- NOTE | 2023-08-19 09:39 | CA ---
Transthoracic Echo Report Name: Walker Hernandez Age: 87 Gender: M : 1935 Exam Date: 08/18/2023 13:59 Exam Location: [place] [facility] Ht (in): 70 Wt (lb): 200 Ordering Physician: Saida Velasco Attending/Referring Phys: Barrel Cooper Briana Mcpherson RDCS Procedure CPT: Indications: lv fx Cardiac Hx: Pacemaker Technical Quality: Technically difficult study Contrast 1: Definity Total Dose (mL): 2 Contrast 2: Total Dose (mL): MEASUREMENTS (Male / Female) Normal Values 2D ECHO LV Diastolic Diameter PLAX 5.3 cm 4.2 - 5.9 / 3.9 - 5.3 cm LV Systolic Diameter PLAX 3.7 cm IVS Diastolic Thickness 1.5 cm 0.6 - 1.0 / 0.6 - 0.9 cm LVPW Diastolic Thickness 1.5 cm 0.6 - 1.0 / 0.6 - 0.9 cm LV Relative Wall Thickness 0.6 RV Internal Dim ED PLAX 4.5 cm LVOT Diameter 2.6 cm LA Systolic Diameter LX 4.0 cm 3.0 - 4.0 / 2.7 - 3.8 cm LV Diastolic Volume MOD BP 109.9 cm??? 67 - 155 / 56 - 104 cm??? LV Systolic Volume MOD BP 57.1 cm??? 22 - 58 / 19 - 49 cm??? LV Ejection Fraction MOD BP 48.0 % >= 55 % LV Cardiac Index MOD BP 1359.0 cm???/min???m??? LV Diastolic Volume MOD 4C 111.5 cm??? LV Systolic Volume MOD 4C 74.1 cm??? LV Ejection Fraction MOD 4C 33.6 % LV Cardiac Index MOD 4C 963.1 cm???/min???m??? LV Diastolic Length 4C 8.6 cm LV Systolic Length 4C 7.5 cm LV Diastolic Volume MOD 2C 103.1 cm??? LV Systolic Volume MOD 2C 42.9 cm??? LV Ejection Fraction MOD 2C 58.4 % LV Cardiac Index MOD 2C 1550.4 cm???/min???m??? LV Diastolic Length 2C 8.2 cm LV Systolic Length 2C 8.1 cm M-MODE Aortic Root Diameter MM 4.0 cm DOPPLER AV Peak Velocity 272.0 cm/s AV Peak Gradient 29.6 mmHg LVOT Peak Velocity 82.7 cm/s LVOT Peak Gradient 2.7 mmHg AV Area Cont Eq pk 1.6 cm??? Mitral E Point Velocity 104.8 cm/s Mitral A Point Velocity 63.4 cm/s Mitral E to A Ratio 1.7 MV Deceleration Time 143.1 ms MV E' Velocity 6.9 cm/s Mitral E to MV E' Ratio 15.1 TR Peak Velocity 286.1 cm/s TR Peak Gradient 32.7 mmHg Right Ventricular Systolic Press 37.8 mmHg FINDINGS Left Ventricle Left ventricular ejection fraction is estimated at 50-55 %. Moderately increased septal wall thickness. Mildly decreased left ventricular ejection fraction. Moderate concentric left ventricular hypertrophy. No obvious regional wall motion abnormality. Right Ventricle Severe right ventricular dilatation. Mild pulmonary hypertension. Right Atrium Normal right atrial size. Left Atrium Mild left atrial dilatation. Mitral Valve Mitral valve thickened. Mild mitral annular calcification. Mild mitral regurgitation. Aortic Valve Trileaflet aortic valve. Moderate aortic valve sclerosis. Moderate aortic stenosis with a peak gradient of 37 mmHg and a mean gradient of 22 mmHg. Tricuspid Valve Structurally normal tricuspid valve. Mild tricuspid regurgitation. Pulmonic Valve Pulmonic valve not well visualized. No pulmonic regurgitation. Pericardium No pericardial effusion. Aorta Moderate aortic dilatation at the level of the sinuses of valsalva 40 mm CONCLUSIONS Technically difficult study. Left ventricular ejection fraction is estimated at 50-55 %. Moderate concentric left ventricular hypertrophy. No obvious regional wall motion abnormality. Mild left atrial dilatation. Moderate aortic stenosis, mean gradient 22 mmHg No pericardial effusion. Previewed by: Dr Nicolas Omer (Electronically Signed) Final Date: 19 August 2023 09:38
--- NOTE | 2023-08-19 09:50 | NM ---
EXAMINATION TYPE: NM pul vent and perfuse DATE OF EXAM: 08/19/2023 CLINICAL INDICATION: Male, 87 years old with history of shortness of breath, Elevated D-dimer; Comparison: Chest radiographs 08/17/2023 TECHNIQUE: Utilizing inhalation of 67 mCi Tc 99m DTPA aerosol and intravenous injection of 4.96 mCi of Tc 99m MAA, ventilation and perfusion images are acquired post injection in multiple projections. FINDINGS: Photopenic area compatible with cardiac conduction battery pack in the left chest wall. Normal radiotracer distribution is noted in the lungs. There is no evidence of mismatched defects. IMPRESSION: No evidence for pulmonary embolus.
[2023-08-19] MEDS: LOSARTAN 25 MG TAB PO SCH (10:16)
[2023-08-19 11:22] LABS: Glucose,Whole Blood 131 mg/dL (70-110)
[2023-08-19] MEDS: APIXABAN 2.5 MG TABLET PO SCH (13:36)
--- NOTE | 2023-08-19 13:55 | P.PN ---
Subjective HISTORY OF PRESENT ILLNESS: This is a 87-year-old male with a past medical history significant for coronary artery disease with previous CABG, hypertension, hyperlipidemia, aortic stenosis, and cardiomyopathy with previous AICD implantation. Patient follows in the office with Dr. Ortiz. We have been asked to see the patient in consultation for congestive heart failure. Patient examined at the bedside in the emergency room. Patient states he presented to the hospital with a chief complaint of shortness of breath. He states he has been feeling mildly short of breath for the past few days. He also reports having palpitations over the past few days at home which seem to be worse with exertion. He denies having any chest pain or pressure. Bedside telemetry and repeat EKG performed revealed suspected atrial flutter. The patient denies any history of atrial flutter or atrial fibrillation. He is on amiodarone on an outpatient basis for history of ventricular tachycardia. The patient is also having runs of nonsustained VT during examination. DIAGNOSTICS: - EKG reveals atrial paced rhythm. Repeat EKG performed during examination reveals suspected atrial flutter - Chest xray cardiomegaly, pulmonary vascular congestion and bilateral pleural effusions. - Laboratory data: WBC 4.6. Hemoglobin 11.7. Platelet count 183. Sodium 139. Potassium 3.8. BUN 29. Creatinine 1.34. Lactic acid 1.3. Troponin 0.061. 0.057. 0.077. proBNP 11,200. - Current home cardiac medications include amiodarone 200 mg daily, Lipitor 40 mg daily, fenofibrate 145 mg daily, Imdur 30 mg daily, losartan 50 mg daily, metoprolol titrate 50 mg twice a day. - Most recent echocardiogram obtained in September 2022 revealed ejection fraction 50%, mild MR, mild to moderate TR, trace aortic regurgitation and moderate aortic stenosis -Patient underwent three-vessel CABG in 1995: LIMALAD, VGD1, VGOM1 Addendum entered and electronically signed by Mary Lou Zamora NP-C 08/18/23 18:32: AICD interrogation confirmed episodes of atrial flutter Will begin IV Heparin D-Dimer obtained and elevated at 1.8. VQ scan has been ordered. Await results. 08/19/2023 Patient examined this morning. He is sitting up in the chair. Patient currently denies chest pain or pressure. He reports improvement in his shortness of breath. He remains on IV Lasix 40 mg every 8 hours. Creatinine today worsened at 1.79. He underwent VQ scan which was negative for pulmonary embolism. Echocardiogram completed revealing ejection fraction 50 to 55% with moderate LVH and moderate aortic stenosis with a peak gradient of 37 mmHg and mean gradient of 22 mmHg PHYSICAL EXAM: VITAL SIGNS: Reviewed. GENERAL: Well-developed in no acute distress. HEENT: Head is normocephalic. Pupils are equal, round. Sclerae anicteric. Mucous membranes of the mouth are moist. Neck supple. No JVD or thyromegaly LUNGS: Respirations even and unlabored. Lungs essentially clear to auscultation bilaterally. HEART: Regular rate and rhythm. S1 and S2 heard. Systolic murmur noted ABDOMEN: Soft. Nondistended. Nontender. EXTREMITIES: Normal range of motion. No clubbing or cyanosis. Peripheral pulses intact. Trace bilateral lower extremity edema NEUROLOGIC: Awake and alert. Oriented x 3. ASSESSMENT: Shortness of breath with exertion Acute heart failure with preserved EF, EF 50 to 55% Nonsustained ventricular tachycardia, on amiodarone outpatient New onset atrial flutter with RVR Abnormal troponins, flat, not suggestive of acute coronary syndrome History of ischemic cardiomyopathy with improved EF History of AICD implantation Coronary artery disease with previous three-vessel CABG in 1995: LIMALAD, VGD1, VGOM1 Valvular heart disease including mild MR, mild to moderate TR, trace AR, and moderate Hypertension Hyperlipidemia Hypomagnesemia Hypokalemia Elevated D-dimer, VQ scan negative for PE Acute on chronic kidney disease PLAN: Sodium tablets discontinued 08/18/2023 (patient taking on an outpatient basis) Continue IV Lasix. Decrease dosage to 40 mg IV daily. Anticipate transitioning to oral diuretics tomorrow Daily weights, accurate intake and output, and monitoring of kidney function Discontinue IV heparin. Begin Eliquis 2.5 mg twice a day Continue additional cardiac medications Continue telemetry monitoring Check TSH Further recommendations pending patient course Nurse practitioner note has been reviewed by physician. Signing provider agrees with the documented findings, assessment, and plan of care documented by CARB[employer] CLEANER as a scribe. Objective - Vital Signs Vital signs: Vital Signs Temp 97.5 F L 08/19/23 08:00 Pulse 58 L 08/19/23 12:00 Resp 20 08/19/23 12:00 BP 126/68 08/19/23 12:00 Pulse Ox 97 08/19/23 12:00 FiO2 Intake & Output 08/18/23 08/19/23 08/19/23 18:59 06:59 18:59 Intake Total 590 347.996 499.957 Output Total 100 475 Balance 490 -127.004 499.957 Weight 90.724 kg 90.2 kg Intake: Intake, IV Titration 167.996 79.957 Amount Heparin Sod,Pork in 0.45% 167.996 79.957 NaCl 25,000 unit In 0.45 % NaCl 1 250ml.bag @ 11. 022 UNITS/KG/HR 10 mls/hr IV .Q24H [facility] Rx#: [id number] Oral 590 180 420 Output: Urine 100 475 Other: Voiding Method Urinal Urinal # Voids 1 # Bowel Movements 1 - Labs CBC & Chem 7: 08/19/23 04:34 08/19/23 04:34 Labs: Abnormal Lab Results - Last 24 Hours (Table) 08/17/23 08/18/23 08/18/23 Range/Units 14:17 13:50 13:50 RBC 3.58 L (4.30-5.90) m/uL Hgb 11.6 L (13.0-17.5) gm/dL Hct 35.2 L (39.0-53.0) % Lymphocytes # 0.6 L (1.0-4.8) k/uL APTT (22.0-30.0) sec D-Dimer 1.84 H (<0.60) mg/L FEU BUN (9-20) mg/dL Creatinine (0.66-1.25) mg/dL Glucose (74-99) mg/dL POC Glucose (mg/dL) (70-110) mg/dL Vitamin D 25-Hydroxy 28.9 L (30.0-100.0) ng/mL TSH (0.465-4.680) mIU/L Urine Protein (Negative) Urine Glucose (UA) (Negative) Urine Blood (Negative) Urine Bacteria (None) /hpf Hyaline Casts (0-2) /lpf Urine Mucus (None) /hpf 08/18/23 08/18/23 08/18/23 Range/Units 16:15 18:02 18:36 RBC (4.30-5.90) m/uL Hgb (13.0-17.5) gm/dL Hct (39.0-53.0) % Lymphocytes # (1.0-4.8) k/uL APTT 37.8 H (22.0-30.0) sec D-Dimer (<0.60) mg/L FEU BUN (9-20) mg/dL Creatinine (0.66-1.25) mg/dL Glucose (74-99) mg/dL POC Glucose (mg/dL) 127 H (70-110) mg/dL Vitamin D 25-Hydroxy (30.0-100.0) ng/mL TSH (0.465-4.680) mIU/L Urine Protein 2+ H (Negative) Urine Glucose (UA) Trace H (Negative) Urine Blood Trace H (Negative) Urine Bacteria Rare H (None) /hpf Hyaline Casts 3 H (0-2) /lpf Urine Mucus Rare H (None) /hpf 08/18/23 08/19/23 08/19/23 Range/Units 20:29 04:34 04:34 RBC 3.60 L (4.30-5.90) m/uL Hgb 12.0 L (13.0-17.5) gm/dL Hct 35.5 L (39.0-53.0) % Lymphocytes # (1.0-4.8) k/uL APTT (22.0-30.0) sec D-Dimer (<0.60) mg/L FEU BUN 32 H (9-20) mg/dL Creatinine 1.79 H (0.66-1.25) mg/dL Glucose 138 H (74-99) mg/dL POC Glucose (mg/dL) 177 H (70-110) mg/dL Vitamin D 25-Hydroxy (30.0-100.0) ng/mL TSH (0.465-4.680) mIU/L Urine Protein (Negative) Urine Glucose (UA) (Negative) Urine Blood (Negative) Urine Bacteria (None) /hpf Hyaline Casts (0-2) /lpf Urine Mucus (None) /hpf 08/19/23 08/19/23 08/19/23 Range/Units 04:34 04:34 06:10 RBC (4.30-5.90) m/uL Hgb (13.0-17.5) gm/dL Hct (39.0-53.0) % Lymphocytes # (1.0-4.8) k/uL APTT 42.6 H (22.0-30.0) sec D-Dimer (<0.60) mg/L FEU BUN (9-20) mg/dL Creatinine (0.66-1.25) mg/dL Glucose (74-99) mg/dL POC Glucose (mg/dL) 129 H (70-110) mg/dL Vitamin D 25-Hydroxy (30.0-100.0) ng/mL TSH <0.015 L (0.465-4.680) mIU/L Urine Protein (Negative) Urine Glucose (UA) (Negative) Urine Blood (Negative) Urine Bacteria (None) /hpf Hyaline Casts (0-2) /lpf Urine Mucus (None) /hpf 08/19/23 08/19/23 Range/Units 11:20 11:24 RBC (4.30-5.90) m/uL Hgb (13.0-17.5) gm/dL Hct (39.0-53.0) % Lymphocytes # (1.0-4.8) k/uL APTT 45.8 H (22.0-30.0) sec D-Dimer (<0.60) mg/L FEU BUN (9-20) mg/dL Creatinine (0.66-1.25) mg/dL Glucose (74-99) mg/dL POC Glucose (mg/dL) 131 H (70-110) mg/dL Vitamin D 25-Hydroxy (30.0-100.0) ng/mL TSH (0.465-4.680) mIU/L Urine Protein (Negative) Urine Glucose (UA) (Negative) Urine Blood (Negative) Urine Bacteria (None) /hpf Hyaline Casts (0-2) /lpf Urine Mucus (None) /hpf
[2023-08-19 14:10] LABS: T4, Free (Free Thyroxine) >6.99 ng/dL (0.78-2.19)
[2023-08-19 16:44] LABS: Glucose,Whole Blood 111 mg/dL (70-110)
[2023-08-19 20:01] LABS: Glucose,Whole Blood 118 mg/dL (70-110)
[2023-08-19] MEDS ORDERED: FUROSEMIDE 10 MG/ML 4 ML VIAL IV SCH (21:00)
[2023-08-20 06:06] LABS: Glucose,Whole Blood 98 mg/dL (70-110)
[2023-08-20 09:26] LABS: Basophils % (A) 1 %; Eosinophils # (A) 0.4 k/uL (0-0.7); Eosinophils % (A) 6 %; HCT 36.8 % (39.0-53.0); HGB 12.3 gm/dL (13.0-17.5); Lymphocytes # (A) 0.9 k/uL (1.0-4.8); Lymphocytes % (A) 15 %; MCH 32.8 pg (25.0-35.0); MCHC 33.3 g/dL (31.0-37.0); MCV 98.5 fL (80.0-100.0); Mean Platelet Volume 7.9; Monocytes # (A) 0.4 k/uL (0-1.0); Monocytes % (A) 7 %; Neutrophils # (A) 3.9 k/uL (1.3-7.7); Neutrophils % (A) 67 %; Platelet Count 184 k/uL (150-450); RBC 3.74 m/uL (4.30-5.90); RDW 14.3 % (11.5-15.5); WBC 5.8 k/uL (3.8-10.6)
[2023-08-20] MEDS: FUROSEMIDE 10 MG/ML 4 ML VIAL IV SCH (10:09)
[2023-08-20 11:17] LABS: African American GFR (CKD) 36 (>60 ml/min/1.73 sqM); Anion Gap 9 mmol/L; Blood Urea Nitrogen 35 mg/dL (9-20); Calcium 8.7 mg/dL (8.4-10.2); Carbon Dioxide 23 mmol/L (22-30); Chloride 108 mmol/L (98-107); Glucose 141 mg/dL (74-99); Non-African American GFR(CKD) 31 (>60 ml/min/1.73 sqM); Potassium 3.8 mmol/L (3.5-5.1); Sodium 140 mmol/L (137-145)
[2023-08-20 11:34] LABS: Glucose,Whole Blood 118 mg/dL (70-110)
[2023-08-20 14:19] VITALS: BMI 28.6
--- NOTE | 2023-08-20 14:46 | P.PN ---
Subjective HISTORY OF PRESENT ILLNESS: This is a 87-year-old male with a past medical history significant for coronary artery disease with previous CABG, hypertension, hyperlipidemia, aortic stenosis, and cardiomyopathy with previous AICD implantation. Patient follows in the office with Dr. Ortiz. We have been asked to see the patient in consultation for congestive heart failure. Patient examined at the bedside in the emergency room. Patient states he presented to the hospital with a chief complaint of shortness of breath. He states he has been feeling mildly short of breath for the past few days. He also reports having palpitations over the past few days at home which seem to be worse with exertion. He denies having any chest pain or pressure. Bedside telemetry and repeat EKG performed revealed suspected atrial flutter. The patient denies any history of atrial flutter or atrial fibrillation. He is on amiodarone on an outpatient basis for history of ventricular tachycardia. The patient is also having runs of nonsustained VT during examination. DIAGNOSTICS: - EKG reveals atrial paced rhythm. Repeat EKG performed during examination reveals suspected atrial flutter - Chest xray cardiomegaly, pulmonary vascular congestion and bilateral pleural effusions. - Laboratory data: WBC 4.6. Hemoglobin 11.7. Platelet count 183. Sodium 139. Potassium 3.8. BUN 29. Creatinine 1.34. Lactic acid 1.3. Troponin 0.061. 0.057. 0.077. proBNP 11,200. - Current home cardiac medications include amiodarone 200 mg daily, Lipitor 40 mg daily, fenofibrate 145 mg daily, Imdur 30 mg daily, losartan 50 mg daily, metoprolol titrate 50 mg twice a day. - Most recent echocardiogram obtained in September 2022 revealed ejection fraction 50%, mild MR, mild to moderate TR, trace aortic regurgitation and moderate aortic stenosis -Patient underwent three-vessel CABG in 1995: LIMALAD, VGD1, VGOM1 Addendum entered and electronically signed by Mary Lou Zamora NP-C 08/18/23 18:32: AICD interrogation confirmed episodes of atrial flutter Will begin IV Heparin D-Dimer obtained and elevated at 1.8. VQ scan has been ordered. Await results. 08/19/2023 Patient examined this morning. He is sitting up in the chair. Patient currently denies chest pain or pressure. He reports improvement in his shortness of breath. He remains on IV Lasix 40 mg every 8 hours. Creatinine today worsened at 1.79. He underwent VQ scan which was negative for pulmonary embolism. Echocardiogram completed revealing ejection fraction 50 to 55% with moderate LVH and moderate aortic stenosis with a peak gradient of 37 mmHg and mean gradient of 22 mmHg 08/20/2023 Patient examined this morning at the bedside. Patient currently denies chest pain or pressure. He denies shortness of breath. He remains on IV Lasix. Vital signs are stable. TSH less than 0.015. Free T4 greater than 6.99. PHYSICAL EXAM: VITAL SIGNS: Reviewed. GENERAL: Well-developed in no acute distress. HEENT: Head is normocephalic. Pupils are equal, round. Sclerae anicteric. Mucous membranes of the mouth are moist. Neck supple. No JVD or thyromegaly LUNGS: Respirations even and unlabored. Lungs essentially clear to auscultation bilaterally. HEART: Regular rate and rhythm. S1 and S2 heard. Systolic murmur noted ABDOMEN: Soft. Nondistended. Nontender. EXTREMITIES: Normal range of motion. No clubbing or cyanosis. Peripheral pulses intact. Trace bilateral lower extremity edema NEUROLOGIC: Awake and alert. Oriented x 3. ASSESSMENT: Shortness of breath with exertion Acute heart failure with preserved EF, EF 50 to 55% Nonsustained ventricular tachycardia, on amiodarone outpatient New onset atrial flutter with RVR Abnormal troponins, flat, not suggestive of acute coronary syndrome History of ischemic cardiomyopathy with improved EF History of AICD implantation Coronary artery disease with previous three-vessel CABG in 1995: LIMALAD, VGD1, VGOM1 Valvular heart disease including mild MR, mild to moderate TR, trace AR, and moderate Hypertension Hyperlipidemia Hypomagnesemia Hypokalemia Elevated D-dimer, VQ scan negative for PE Acute on chronic kidney disease Abnormal TSH and free T4 PLAN: Discontinue IV Lasix. Begin oral diuretics Daily weights, accurate intake and output, and monitoring of kidney function Continue additional cardiac medications Continue telemetry monitoring Patient is stable for discharge from a cardiac standpoint Further recommendations pending patient course Nurse practitioner note has been reviewed by physician. Signing provider agrees with the documented findings, assessment, and plan of care documented by [employer] SCI[employer] PROFESSOR as a scribe. Objective - Vital Signs Vital signs: Vital Signs Temp 98.2 F 08/20/23 03:11 Pulse 54 L 08/20/23 03:11 Resp 20 08/20/23 03:11 BP 134/75 08/20/23 03:11 Pulse Ox 93 L 08/20/23 03:11 FiO2 Intake & Output 08/19/23 08/20/23 08/20/23 18:59 06:59 18:59 Intake Total 1039.957 480 Output Total 800 Balance 1039.957 -800 480 Weight 90.2 kg 90.6 kg Intake: Intake, IV Titration 79.957 Amount Heparin Sod,Pork in 0.45% 79.957 NaCl 25,000 unit In 0.45 % NaCl 1 250ml.bag @ 11. 022 UNITS/KG/HR 10 mls/hr IV .Q24H [facility] Rx#: [id number] Oral 960 480 Output: Urine 800 Other: Voiding Method Urinal Urinal - Labs CBC & Chem 7: 08/21/23 06:49 08/21/23 06:49 Labs: Abnormal Lab Results - Last 24 Hours (Table) 08/19/23 08/19/23 08/19/23 Range/Units 04:34 11:20 11:24 RBC (4.30-5.90) m/uL Hgb (13.0-17.5) gm/dL Hct (39.0-53.0) % Lymphocytes # (1.0-4.8) k/uL APTT 45.8 H (22.0-30.0) sec POC Glucose (mg/dL) 131 H (70-110) mg/dL TSH <0.015 L (0.465-4.680) mIU/L Free T4 >6.99 H (0.78-2.19) ng/dL 08/19/23 08/19/23 08/20/23 Range/Units 16:42 19:59 08:30 RBC 3.74 L (4.30-5.90) m/uL Hgb 12.3 L (13.0-17.5) gm/dL Hct 36.8 L (39.0-53.0) % Lymphocytes # 0.9 L (1.0-4.8) k/uL APTT (22.0-30.0) sec POC Glucose (mg/dL) 111 H 118 H (70-110) mg/dL TSH (0.465-4.680) mIU/L Free T4 (0.78-2.19) ng/dL
[2023-08-20] MEDS: methIMAzole 5 MG TAB PO SCH (16:14)
[2023-08-20 16:27] LABS: Glucose,Whole Blood 115 mg/dL (70-110)
--- NOTE | 2023-08-20 16:47 | P.PN ---
Subjective Progress Note Date: 08/19/23 H&P Date: 08/18/23 Chief Complaint: Recent falls, increased generalized weakness, increased shortness of breath This is a pleasant 87-year-old gentleman with past medical history significant of right eye blindness,CAD, history of CABG, diabetes mellitus, hypertension, hyperlipidemia,: CTA, anxiety, depression and multiple other medical issues, reported recent falls, increasing generalized weakness accompanied by increase in shortness of breath. Denies syncope..Chest x-ray reported cardiomegaly, pulmonary vascular congestion and bilateral pleural effusions. Afebrile, normal WBC. Complained to the ER about fluctuating chest pressure throughout the last month, elevated troponins 0.061, 0.057, 0.077. EKG reported paced,.hemoglobin 11.6, platelets 188, D-dimer elevated 1.84. Creatinine post CT of head/cervical spine 1.5 .Head/cervical spine CT reported no acute intracranial process, nonspecific white matter changes likely secondary to chronic small vessel ischemic disease, no evidence of cervical spine fracture, moderate to severe multilevel degenerative disc disease. Currently diuresing on IV push Lasix, anticoagulated on heparin drip. Sodium 142, potassium 3.1, bicarb 26, BUN 26, creatinine 1.5. Magnesium 1.5. On admission hypertensive with blood pressures are 167/101, 188/110, 173/124, currently 137/89. Denies Chest Pain, Palpitations or increased shortness of breath. Maintaining O2 sats of 90% on room air. 08/19/2023 yesterday having runs of nonsustained V. tach. AICD interrogation confirmed episodes of atrial flutter as per cardiology. Echo reported LVH, EF 50 to 55%, moderate aortic stenosis. V/Q reported negative for PE.. Heparin drip currently, transitioning to Eliquis today.Diuresing well on Lasix IV push with 24-hour I and O inaccurate, reports breathing easier, maintaining O2 sats in the high 90s on room air. Worsening renal function, diuretic dose decreased. Afebrile, normal WBC. Stool positive for occult blood, no bleeding noted. hemoglobin 12, platelets 181. Positive diet intake. denies nausea vomiting or diarrhea. Denies abdominal pain. Blood sugars controlled. TSH less than 0.01 5, free T4 greater than 6.99. UA negative. Objective - Vital Signs Vital signs: Vital Signs Temp 96.4 F L 08/19/23 16:50 Pulse 65 08/19/23 16:50 Resp 18 08/19/23 16:50 BP 116/65 08/19/23 16:50 Pulse Ox 94 L 08/19/23 16:50 FiO2 Intake & Output 08/18/23 08/19/23 08/19/23 18:59 06:59 18:59 Intake Total 590 347.996 499.957 Output Total 100 475 Balance 490 -127.004 499.957 Weight 90.724 kg 90.2 kg 90.2 kg Intake: Intake, IV Titration 167.996 79.957 Amount Heparin Sod,Pork in 0.45% 167.996 79.957 NaCl 25,000 unit In 0.45 % NaCl 1 250ml.bag @ 11. 022 UNITS/KG/HR 10 mls/hr IV .Q24H [facility] Rx#: [id number] Oral 590 180 420 Output: Urine 100 475 Other: Voiding Method Urinal Urinal Urinal # Voids 1 # Bowel Movements 1 - Exam VITAL SIGNS: As above GENERAL: Pleasant, alert and oriented x 3, sitting up in chair, no acute distress HEENT: Atraumatic ,Conjunctivae normal. Oral mucosa moist, right lower side of jaw bruising NECK: Supple, no JVD. CARDIOVASCULAR: S1, S2 regular.systolic murmur, no gallops, no rubs. RESPIRATION: Unlabored, equal air entry breath sounds diminished in the bases. ABDOMEN: Soft, nondistended, nontender. No guarding, no rigidity, positive bowel sounds. LEGS: No edema. no swelling. NERVOUS SYSTEM: Cranial N 2-12 grossly normal. Moves all 4 limbs. No focal deficits. Strength and sensation grossly intact. Skin: Warm and dry, no rash - Labs CBC & Chem 7: 08/20/23 08:30 08/20/23 08:30 Labs: Abnormal Lab Results - Last 24 Hours (Table) 08/17/23 08/18/23 08/18/23 Range/Units 14:17 18:02 18:36 RBC (4.30-5.90) m/uL Hgb (13.0-17.5) gm/dL Hct (39.0-53.0) % APTT 37.8 H (22.0-30.0) sec BUN (9-20) mg/dL Creatinine (0.66-1.25) mg/dL Glucose (74-99) mg/dL POC Glucose (mg/dL) (70-110) mg/dL Vitamin D 25-Hydroxy 28.9 L (30.0-100.0) ng/mL TSH (0.465-4.680) mIU/L Free T4 (0.78-2.19) ng/dL Urine Protein 2+ H (Negative) Urine Glucose (UA) Trace H (Negative) Urine Blood Trace H (Negative) Urine Bacteria Rare H (None) /hpf Hyaline Casts 3 H (0-2) /lpf Urine Mucus Rare H (None) /hpf 08/18/23 08/19/23 08/19/23 Range/Units 20:29 04:34 04:34 RBC 3.60 L (4.30-5.90) m/uL Hgb 12.0 L (13.0-17.5) gm/dL Hct 35.5 L (39.0-53.0) % APTT (22.0-30.0) sec BUN 32 H (9-20) mg/dL Creatinine 1.79 H (0.66-1.25) mg/dL Glucose 138 H (74-99) mg/dL POC Glucose (mg/dL) 177 H (70-110) mg/dL Vitamin D 25-Hydroxy (30.0-100.0) ng/mL TSH (0.465-4.680) mIU/L Free T4 (0.78-2.19) ng/dL Urine Protein (Negative) Urine Glucose (UA) (Negative) Urine Blood (Negative) Urine Bacteria (None) /hpf Hyaline Casts (0-2) /lpf Urine Mucus (None) /hpf 08/19/23 08/19/23 08/19/23 Range/Units 04:34 04:34 06:10 RBC (4.30-5.90) m/uL Hgb (13.0-17.5) gm/dL Hct (39.0-53.0) % APTT 42.6 H (22.0-30.0) sec BUN (9-20) mg/dL Creatinine (0.66-1.25) mg/dL Glucose (74-99) mg/dL POC Glucose (mg/dL) 129 H (70-110) mg/dL Vitamin D 25-Hydroxy (30.0-100.0) ng/mL TSH <0.015 L (0.465-4.680) mIU/L Free T4 >6.99 H (0.78-2.19) ng/dL Urine Protein (Negative) Urine Glucose (UA) (Negative) Urine Blood (Negative) Urine Bacteria (None) /hpf Hyaline Casts (0-2) /lpf Urine Mucus (None) /hpf 08/19/23 08/19/23 08/19/23 Range/Units 11:20 11:24 16:42 RBC (4.30-5.90) m/uL Hgb (13.0-17.5) gm/dL Hct (39.0-53.0) % APTT 45.8 H (22.0-30.0) sec BUN (9-20) mg/dL Creatinine (0.66-1.25) mg/dL Glucose (74-99) mg/dL POC Glucose (mg/dL) 131 H 111 H (70-110) mg/dL Vitamin D 25-Hydroxy (30.0-100.0) ng/mL TSH (0.465-4.680) mIU/L Free T4 (0.78-2.19) ng/dL Urine Protein (Negative) Urine Glucose (UA) (Negative) Urine Blood (Negative) Urine Bacteria (None) /hpf Hyaline Casts (0-2) /lpf Urine Mucus (None) /hpf Assessment and Plan Assessment: -Mildly elevated troponins, hypertensive urgency on admission, complaints of fluctuating chest pain accompanied by increased shortness of breath, with elevated D-dimer, VQ reported negative for PE. Chest x-ray reporting pulmonary edema. -Acute CHF, diastolic dysfunction -New onset atrial flutter with RVR -Elevated troponins, ACS ruled out, cardiology following -Nonsustained V. tach, on amiodarone outpatient -Recent falls, increased generalized weakness -Acute on chronic kidney disease, stage III secondary to diabetes mellitus, baseline 1.3-1.5 -Hyperthyroidism -CAD with history of CABG -Valvular heart disease including moderate -Ischemic cardiomyopathy with improved EF -History of AICD implantation -Diabetes mellitus, hyperglycemic, hemoglobin A1c ordered -Hypertension -Hyperlipidemia -Hypokalemia -Hypomagnesemia -DDD -Gait dysfunction uses a cane and sometimes a walker Plan: Continue on current medication regimen ,monitoring and symptomatic treatment. Renal function worsening, diuretics transitioning to oral today as per cardiology. Close monitoring of renal function and electrolytes with repeat labs ordered for a.m. Methimazole initiated for hyperthyroidism and patient will need to follow-up with team truck driver outpatient. Anticoagulation with Eliquis. Case management updated on patient expressing distress over his current living situation, but feeling desperate as he needs assistance at home. At discharge, patient will need home care with director social as well as community resources .[facility] contact info given to patient. The impression and plan of care has been dictated as directed. : I performed a history and examination of this patient, discussed the same with the dictator. I agree with the dictator's note ,documented as a scribe. Any additional findings or plans will be noted.
--- NOTE | 2023-08-20 17:00 | P.PN ---
Subjective Progress Note Date: 08/20/23 H&P Date: 08/18/23 Chief Complaint: Recent falls, increased generalized weakness, increased shortness of breath This is a pleasant 87-year-old gentleman with past medical history significant of right eye blindness,CAD, history of CABG, diabetes mellitus, hypertension, hyperlipidemia,: CTA, anxiety, depression and multiple other medical issues, reported recent falls, increasing generalized weakness accompanied by increase in shortness of breath. Denies syncope..Chest x-ray reported cardiomegaly, pulmonary vascular congestion and bilateral pleural effusions. Afebrile, normal WBC. Complained to the ER about fluctuating chest pressure throughout the last month, elevated troponins 0.061, 0.057, 0.077. EKG reported paced,.hemoglobin 11.6, platelets 188, D-dimer elevated 1.84. Creatinine post CT of head/cervical spine 1.5 .Head/cervical spine CT reported no acute intracranial process, nonspecific white matter changes likely secondary to chronic small vessel ischemic disease, no evidence of cervical spine fracture, moderate to severe multilevel degenerative disc disease. Currently diuresing on IV push Lasix, anticoagulated on heparin drip. Sodium 142, potassium 3.1, bicarb 26, BUN 26, creatinine 1.5. Magnesium 1.5. On admission hypertensive with blood pressures are 167/101, 188/110, 173/124, currently 137/89. Denies Chest Pain, Palpitations or increased shortness of breath. Maintaining O2 sats of 90% on room air. 08/19/2023 yesterday having runs of nonsustained V. tach. AICD interrogation confirmed episodes of atrial flutter as per cardiology. Echo reported LVH, EF 50 to 55%, moderate aortic stenosis. V/Q reported negative for PE.. Heparin drip currently, transitioning to Eliquis today.Diuresing well on Lasix IV push with 24-hour I and O inaccurate, reports breathing easier, maintaining O2 sats in the high 90s on room air. Worsening renal function, diuretic dose decreased. Afebrile, normal WBC. Stool positive for occult blood, no bleeding noted. hemoglobin 12, platelets 181. Positive diet intake. denies nausea vomiting or diarrhea. Denies abdominal pain. Blood sugars controlled. TSH less than 0.01 5, free T4 greater than 6.99. UA negative. 08/20/2023 sitting up in chair, denies chest pain, palpitations or shortness of breath. IV Lasix being transitioned to oral today. Worsening renal function, BUN 35, creatinine 1.9. Afebrile, normal WBC, hemoglobin 12.3, platelets 184. Vital signs stable. Objective - Vital Signs Vital signs: Vital Signs Temp 98.1 F 08/20/23 08:00 Pulse 61 08/20/23 08:00 Resp 18 08/20/23 13:13 BP 138/65 08/20/23 08:00 Pulse Ox 96 08/20/23 08:00 FiO2 Intake & Output 08/19/23 08/20/23 08/20/23 18:59 06:59 18:59 Intake Total 1039.957 480 Output Total 800 1500 Balance 1039.957 -800 -1020 Weight 90.2 kg 90.6 kg Intake: Intake, IV Titration 79.957 Amount Heparin Sod,Pork in 0.45% 79.957 NaCl 25,000 unit In 0.45 % NaCl 1 250ml.bag @ 11. 022 UNITS/KG/HR 10 mls/hr IV .Q24H [facility] Rx#: [id number] Oral 960 480 Output: Urine 800 1500 Other: Voiding Method Urinal Urinal - Exam VITAL SIGNS: As above GENERAL:alert and oriented x 3, sitting up in chair, no acute distress HEENT: Atraumatic , right eye blindness ,conjunctivae normal. Oral mucosa moist, right lower side of jaw bruising NECK: Supple, no JVD. CARDIOVASCULAR: S1, S2 regular.systolic murmur, no gallops, no rubs. RESPIRATION: Unlabored, equal air entry breath sounds diminished in the bases. ABDOMEN: Soft, nondistended, nontender. No guarding, no rigidity, positive bowel sounds. LEGS: No edema. no swelling. NERVOUS SYSTEM: Cranial N 2-12 grossly normal.No focal deficits. Strength and sensation grossly intact. Skin: Warm and dry, no rash - Labs CBC & Chem 7: 08/20/23 08:30 08/20/23 08:30 Labs: Abnormal Lab Results - Last 24 Hours (Table) 08/19/23 08/20/23 08/20/23 Range/Units 19:59 08:30 08:30 RBC 3.74 L (4.30-5.90) m/uL Hgb 12.3 L (13.0-17.5) gm/dL Hct 36.8 L (39.0-53.0) % Lymphocytes # 0.9 L (1.0-4.8) k/uL Chloride 108 H (98-107) mmol/L BUN 35 H (9-20) mg/dL Creatinine 1.90 H (0.66-1.25) mg/dL Glucose 141 H (74-99) mg/dL POC Glucose (mg/dL) 118 H (70-110) mg/dL 08/20/23 08/20/23 Range/Units 11:33 16:23 RBC (4.30-5.90) m/uL Hgb (13.0-17.5) gm/dL Hct (39.0-53.0) % Lymphocytes # (1.0-4.8) k/uL Chloride (98-107) mmol/L BUN (9-20) mg/dL Creatinine (0.66-1.25) mg/dL Glucose (74-99) mg/dL POC Glucose (mg/dL) 118 H 115 H (70-110) mg/dL Assessment and Plan Assessment: -Mildly elevated troponins, hypertensive urgency on admission, complaints of fluctuating chest pain accompanied by increased shortness of breath, with elevated D-dimer, VQ reported negative for PE. Chest x-ray reporting pulmonary edema. -Acute CHF, diastolic dysfunction -New onset atrial flutter with RVR -Elevated troponins, ACS ruled out, cardiology following -Nonsustained V. tach, on amiodarone outpatient -Recent falls, increased generalized weakness -Acute on chronic kidney disease, stage III secondary to diabetes mellitus, baseline 1.3-1.5 -Hyperthyroidism -CAD with history of CABG -Valvular heart disease including moderate -Ischemic cardiomyopathy with improved EF -History of AICD implantation -Diabetes mellitus, hyperglycemic, hemoglobin A1c ordered -Hypertension -Hyperlipidemia -Hypokalemia -Hypomagnesemia -DDD -Gait dysfunction uses a cane and sometimes a walker Plan: Continue on current medication regimen ,monitoring and symptomatic treatment. Diuretics transitioned to oral today as per cardiology. Worsening renal function, close monitoring of renal function and electrolytes with repeat labs ordered for a.m. Anticoagulation with Eliquis. Initially had planned for discharge, but cardiology informed us that patient is not feeling well this afternoon and does not want to go home today. Discharge canceled for today and will plan for discharge tomorrow. The impression and plan of care has been dictated as directed. : I performed a history and examination of this patient, discussed the same with the dictator. I agree with the dictator's note ,documented as a scribe. Any additional findings or plans will be noted.
[2023-08-20 20:11] LABS: Glucose,Whole Blood 138 mg/dL (70-110)
[2023-08-21 05:59] LABS: Glucose,Whole Blood 105 mg/dL (70-110)
[2023-08-21 07:39] LABS: Basophils % (A) 1 %; Eosinophils # (A) 0.3 k/uL (0-0.7); Eosinophils % (A) 6 %; HCT 34.3 % (39.0-53.0); HGB 11.3 gm/dL (13.0-17.5); Lymphocytes # (A) 0.7 k/uL (1.0-4.8); Lymphocytes % (A) 15 %; MCH 32.7 pg (25.0-35.0); MCV 98.9 fL (80.0-100.0); Mean Platelet Volume 7.6; Monocytes # (A) 0.5 k/uL (0-1.0); Monocytes % (A) 11 %; Neutrophils # (A) 3.1 k/uL (1.3-7.7); Neutrophils % (A) 65 %; Platelet Count 180 k/uL (150-450); RBC 3.47 m/uL (4.30-5.90); WBC 4.9 k/uL (3.8-10.6)
[2023-08-21 08:00] LABS: African American GFR (CKD) 36 (>60 ml/min/1.73 sqM); Anion Gap 7 mmol/L; Blood Urea Nitrogen 41 mg/dL (9-20); Calcium 8.5 mg/dL (8.4-10.2); Carbon Dioxide 27 mmol/L (22-30); Chloride 105 mmol/L (98-107); Glucose 103 mg/dL (74-99); Magnesium 1.6 mg/dL (1.6-2.3); Non-African American GFR(CKD) 31 (>60 ml/min/1.73 sqM); Potassium 3.9 mmol/L (3.5-5.1); Sodium 139 mmol/L (137-145)
[2023-08-21] MEDS: FUROSEMIDE 40 MG TAB PO SCH (08:33)
[2023-08-21 08:47] VITALS: BP 131/67; PULSE 65; RESP 19; TEMP 97.6
[2023-08-21 11:35] LABS: Glucose,Whole Blood 134 mg/dL (70-110)
--- NOTE | 2023-08-21 14:39 | DS ---
DISCHARGE SUMMARY FINAL DIAGNOSES: 1. Congestive heart failure, acute exacerbation, acute on chronic diastolic dysfunction. 2. New-onset atrial flutter. 3. Nonsustained ventricular tachycardia. 4. Ischemic cardiomyopathy. 5. Multiple complex medical issues. DISCHARGE DISPOSITION: The patient will be discharged in stable condition, guarded prognosis. HISTORY OF PRESENT ILLNESS: This is an 87-year-old gentleman with a past history of multiple medical problems, was admitted with CHF, acute exacerbation, treated with diuretics, improved significantly. Cardiology cleared the patient for discharge. PHYSICAL EXAMINATION: VITAL SIGNS: Stable. CARDIOVASCULAR: S1, S2 normal. RESPIRATORY: Few scattered rhonchi. ABDOMEN: Soft, nontender. DISCHARGE MEDICATIONS: Continue the home medications, and Tapazole 5 mg p.o. t.i.d., Eliquis 2.5 mg b.i.d., Lasix 40 mg p.o. daily. Follow up with Dr. Rascon with labs. Follow up with Cardiology as recommended. Follow up with Dr. Doherty as recommended, Endocrinology. Once again, the patient was discharged stable and guarded prognosis. Total time taken 35 minutes. MMODL / IJN: [id number] /
== END 2023-08-21 13:56 | disposition home health service (06) | DRG 291 ==
LOC: EC 13:36 → 3SCARD 18:55 → 4SSUR 08-20 23:24
PROVIDERS: ADMIT Family Medicine; ATTEND Family Medicine
DX: I13.0 Hypertensive heart and chronic kidney disease with heart failure and stage 1 through stage 4 chronic kidney disease, or unspecified chronic kidney disease (principal); I50.33 Acute on chronic diastolic (congestive) heart failure; I48.92 Unspecified atrial flutter; I47.20 Ventricular tachycardia, unspecified; N18.30 Chronic kidney disease, stage 3 unspecified; E78.5 Hyperlipidemia, unspecified; E83.42 Hypomagnesemia; E87.6 Hypokalemia; R26.9 Unspecified abnormalities of gait and mobility; E11.22 Type 2 diabetes mellitus with diabetic chronic kidney disease; I25.10 Atherosclerotic heart disease of native coronary artery without angina pectoris; Z95.1 Presence of aortocoronary bypass graft; E11.65 Type 2 diabetes mellitus with hyperglycemia; I16.0 Hypertensive urgency; E05.90 Thyrotoxicosis, unspecified without thyrotoxic crisis or storm; I25.5 Ischemic cardiomyopathy; F32.A Depression, unspecified; I08.3 Combined rheumatic disorders of mitral, aortic and tricuspid valves; F41.9 Anxiety disorder, unspecified; H54.61 Unqualified visual loss, right eye, normal vision left eye; R29.6 Repeated falls; R79.89 Other specified abnormal findings of blood chemistry; Z85.038 Personal history of other malignant neoplasm of large intestine; Z79.899 Other long term (current) drug therapy; Z86.79 Personal history of other diseases of the circulatory system; Z95.810 Presence of automatic (implantable) cardiac defibrillator
CPT/HCPCS: 36415; 70450; 71046; 72125; 78582; 80048; 80053; 81001; 82272; 82306; 83036; 83605; 83735; 83880; 84439; 84443; 84484; 85025; 85379; 85610; 85730; 93005; 93306; 94760; 96361; 96365; 96366; 96368; 96375; 96376; 99285

== ENCOUNTER → 2024-02-08 | Outpatient (CLI) | payer MEDICARE, BC ==
[2024-02-08 19:15] LABS: NT-Pro-B-Type Natriuretic Pept 1659 pg/mL (0-450)
[2024-02-08 19:58] LABS: BUN/Creat Ratio 17.05 Ratio (12.00-20.00); Blood Urea Nitrogen 32.4 mg/dL (9.0-27.0); Calcium 9.3 mg/dL (8.7-10.3); Carbon Dioxide 24.4 mmol/L (21.6-31.8); Chloride 109 mmol/L (96-109); Glucose 110 mg/dL (70-110); Potassium 4.8 mmol/L (3.5-5.5); Sodium 149 mmol/L (135-145)
== END | disposition home or self-care (01) ==
LOC: LABWHC1 15:22
PROVIDERS: ATTEND Internal Medicine Cardiovascular Disease
DX: I11.0 Hypertensive heart disease with heart failure (principal); I50.22 Chronic systolic (congestive) heart failure
CPT/HCPCS: 36415; 80048; 83880

== ENCOUNTER 2024-07-24 11:01 | Emergency (ER) | payer MEDICARE, BC ==
[2024-07-24 11:19] VITALS: TEMP 97.4
[2024-07-24 12:05] LABS: Basophils % (A) 0 %; Eosinophils # (A) 0.3 k/uL (0-0.7); Eosinophils % (A) 5 %; HCT 37.6 % (39.0-53.0); HGB 11.3 gm/dL (13.0-17.5); Lymphocytes # (A) 0.6 k/uL (1.0-4.8); Lymphocytes % (A) 11 %; MCH 30.4 pg (25.0-35.0); MCHC 30.2 g/dL (31.0-37.0); MCV 100.6 fL (80.0-100.0); Macrocytosis Slight; Mean Platelet Volume 7.4; Monocytes # (A) 0.5 k/uL (0-1.0); Monocytes % (A) 10 %; Neutrophils # (A) 3.8 k/uL (1.3-7.7); Neutrophils % (A) 71 %; Platelet Count 170 k/uL (150-450); RBC 3.74 m/uL (4.30-5.90); RDW 14.3 % (11.5-15.5); WBC 5.4 k/uL (3.8-10.6)
[2024-07-24 12:23] LABS: ALT 24 U/L (4-49); AST 72 U/L (17-59); African American GFR (CKD) 47 (>60 ml/min/1.73 sqM); Albumin 3.8 g/dL (3.5-5.0); Alkaline Phosphatase 91 U/L (38-126); Anion Gap 11 mmol/L; Blood Urea Nitrogen 30 mg/dL (9-20); Calcium 9.6 mg/dL (8.4-10.2); Carbon Dioxide 23 mmol/L (22-30); Chloride 105 mmol/L (98-107); Glucose 125 mg/dL (74-99); Non-African American GFR(CKD) 41 (>60 ml/min/1.73 sqM); Potassium 4.2 mmol/L (3.5-5.1); Sodium 139 mmol/L (137-145); Total Bilirubin 0.9 mg/dL (0.2-1.3); Total Protein 6.7 g/dL (6.3-8.2)
--- NOTE | 2024-07-24 12:23 | XR ---
EXAMINATION TYPE: XR chest 2V DATE OF EXAM: 07/24/2024 12:12 PM COMPARISON: 08/17/2023 CLINICAL INDICATION: Male, 88 years old with history of pain, TECHNIQUE: XR chest 2V view(s) obtained. FINDINGS: The heart size is normal. Pacemaker overlies left chest The pulmonary vasculature is normal. The lungs are clear. Hyperinflation flattening the diaphragms to be compatible COPD. IMPRESSION: 1. No acute pulmonary process. [facility], , 07/24/2024 12:20 PM
[2024-07-24 12:35] LABS: Influenza A Not Detected (Not Detectd); Influenza B Not Detected (Not Detectd); RSV Not Detected (Not Detectd)
[2024-07-24] MEDS: ONDANSETRON 4 MG/2 ML VIAL IVP STA (12:42)
[2024-07-24] MEDS: SODIUM CHLORIDE 0.9% 1,000 ML IV ONE (12:42)
--- NOTE | 2024-07-24 13:42 | CT ---
EXAMINATION TYPE: CT abdomen pelvis w con CT DLP: 1424.6 mGycm, Automated exposure control for dose reduction was used. DATE OF EXAM: 07/24/2024 1:30 PM COMPARISON: PET CT 01/31/2021, CT chest abdomen and pelvis 09/22/2019, CT abdomen 11/01/2018 CLINICAL INDICATION:Male, 88 years old with history of abd pain, nausea; Abdominal pain and nausea TECHNIQUE: Standard CT of the abdomen and pelvis following the administration of 100 cc of Isovue 3 00 IV contrast material. Coronal and sagittal reformats were performed. FINDINGS: LOWER CHEST: Cardiomegaly with partial visualization of cardiac pacemaker leads within the right atri um and right ventricle. Median sternotomy wires. Dependent bilateral lower lobe subsegmental atelecta sis. Mitral annulus calcifications. ABDOMEN LIVER: Unremarkable GALLBLADDER AND BILE DUCTS: Gallbladder is surgical absent versus significantly contracted. PANCREAS: Unremarkable. SPLEEN: Unremarkable. ADRENAL GLANDS: Unremarkable. KIDNEYS AND URETERS: No evidence of hydronephrosis or renal calculus. The kidneys enhance symmetrical ly. Bilateral renal cysts with a right mid kidney 4.5 cm similar cyst with peripheral calcifications. Decrease in size of right renal lower pole cyst with peripheral calcifications now measuring 3.0 cm, previously measured up to 4.7 cm. PELVIS BLADDER: Unremarkable REPRODUCTIVE: Nonenlarged prostate gland. Calcification of bilateral vas deferens suggesting diabetes . ABDOMEN & PELVIS STOMACH AND BOWEL: Stomach and duodenum are unremarkable. Postsurgical changes of the sigmoid rectal anastomosis. Scattered distal colonic diverticulosis without evidence for acute diverticulitis. No fo fernanda bowel wall thickening or surrounding inflammatory changes. The appendix is not visualized. No stuart dence of bowel obstruction. PERITONEUM: No evidence of pneumoperitoneum or free fluid. VASCULATURE: Mild atherosclerotic calcifications are present throughout the abdominal aorta and its b ranches. No evidence of aortic aneurysm. MUSCULOSKELETAL: No acute osseous abnormalities. Scoliotic curvature of the thoracolumbar spine. Dege nerative changes of the right SI joint with anterior bridging. Grade 1 anterolisthesis of L5 on S1 wi th bilateral pars defects. Multilevel degenerative disc disease. Vertebral fracture of the anterior s uperior endplate of the T10 vertebral body. LYMPH NODES: No evidence for lymphadenopathy. SOFT TISSUE/ABDOMINAL WALL: Postsurgical changes of the anterior abdominal wall with mesh anchor clip s identified. Bilateral fat filled inguinal hernias. Right anterior mid abdominal wall fat-containing hernia redemonstrated. IMPRESSION: 1. No CT evidence for acute abdominal/pelvic process. 2. Colonic diverticulosis with postsurgical change. No evidence for acute diverticulitis. 3. Redemonstration of right renal minimally complex cysts. [facility], , 07/24/2024 1:40 PM
--- NOTE | 2024-07-24 15:39 | ED ---
General Adult HPI - General Chief complaint: Nausea/Vomiting/Diarrhea Stated complaint: NVD Time Seen by Provider: 07/24/24 12:12 Source: patient Mode of arrival: ambulatory Limitations: no limitations - History of Present Illness Initial comments: 88-year-old male presents to the emergency department with nausea, vomiting and weakness for the past 3 weeks. Patient states that he has felt generally unwell with nausea. States that he has diarrhea daily. Reports that he wears depends and has difficulty getting to the bathroom before he has a bowel movement. Bowel movements are soft. No recent use of antibiotics. Patient has not recently been hospitalized. He denies black or bloody stools. No fevers. No abdominal pain. No vomiting. He denies any chest pain or difficulty breathing. No sick contacts. He has not taken anything for his diarrhea. No other alleviating, precipitating or modifying factors - Related Data Home Medications Medication Instructions Recorded Confirmed Fenofibrate Nanocrystallized 145 mg PO DAILY 04/03/15 08/17/23 [Tricor] Atorvastatin [Lipitor] 40 mg PO DAILY 10/30/18 08/17/23 Losartan Potassium 50 mg PO DAILY 11/15/20 08/17/23 Amiodarone [Cordarone] 200 mg PO DAILY 12/27/20 08/17/23 Metoprolol Tartrate [Lopressor] 50 mg PO BID 08/17/23 08/17/23 Previous Rx's Medication Instructions Recorded Isosorbide Mononitrate ER [Imdur] 30 mg PO DAILY #30 tab.er.24h 01/30/18 Apixaban [Eliquis] 2.5 mg PO BID #60 tab 08/20/23 methIMAzole [Tapazole] 5 mg PO TID #90 tab 08/20/23 Furosemide [Lasix] 40 mg PO DAILY #30 tab 08/21/23 Allergies Allergy/AdvReac Type Severity Reaction Status Date / Time No Known Allergies Allergy Verified 08/17/23 18:33 Review of Systems ROS Statement: Those systems with pertinent positive or pertinent negative responses have been documented in the HPI. ROS Other: All systems not noted in ROS Statement are negative. 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 Absent: scleral icterus, conjunctival injection, periorbital swelling ENT exam: Present: normal exam, mucous membranes moist Neck exam: Present: normal inspection. Absent: tenderness, meningismus, lymphadenopathy Respiratory exam: Present: normal lung sounds bilaterally. Absent: respiratory distress, wheezes, rales, rhonchi, stridor Cardiovascular Exam: Present: regular rate, normal rhythm, normal heart sounds. Absent: systolic murmur, diastolic murmur, rubs, gallop, clicks GI/Abdominal exam: Present: soft, normal bowel sounds. Absent: distended, tenderness, guarding, rebound, rigid Extremities exam: Present: normal inspection, full ROM, normal capillary refill. Absent: tenderness, pedal edema, joint swelling, calf tenderness Back exam: Present: normal inspection Neurological exam: Present: alert, oriented X3, CN II-XII intact Psychiatric exam: Present: normal affect, normal mood Skin exam: Present: warm, dry, intact, normal color. Absent: rash Course Vital Signs 07/24/24 07/24/24 11:17 16:35 Temperature 97.4 F L Pulse Rate 75 83 Respiratory 20 16 Rate Blood Pressure 165/84 174/93 O2 Sat by Pulse 95 94 L Oximetry Medical Decision Making - Medical Decision Making Was pt. sent in by a medical professional or institution (, PA, [employer], urgent care, hospital, or fpc...) When possible be specific @ -No Did you speak to anyone other than the patient for history (EMS, parent, family, police, friend...)? What history was obtained from this source @ -No Did you review nursing and triage notes (agree or disagree)? Why? @ -I reviewed and agree with nursing and triage notes Were old charts reviewed (outside hosp., previous admission, EMS record, old EKG, old radiological studies, urgent care reports/EKG's, fpc records)? Report findings @ -No old charts were reviewed Differential Diagnosis (chest pain, altered mental status, abdominal pain women, abdominal pain men, vaginal bleeding, weakness, fever, dyspnea, syncope, headache, dizziness, GI bleed, back pain, seizure, CVA, palpatations, mental health, musculoskeletal)? @ -Differential Weakness: Hypoglycemia, shock, sepsis, hyponatremia, anemia, infection, CA, ETOH, adverse medicine reaction, overdose, stroke, this is not meant to be an all-inclusive list. EKG interpreted by me (3pts min.). @ -Yes and demonstrates sinus rhythm with a rate of 77. OR interval 132. QRS 109. QTc of 399. Q wave in lead III X-rays interpreted by me (1pt min.). @ -Yes which demonstrates no acute process CT interpreted by me (1pt min.). @ -Yes which demonstrates no acute process U/S interpreted by me (1pt. min.). @ -None done What testing was considered but not performed or refused? (CT, X-rays, U/S, labs)? Why? @ -None What meds were considered but not given or refused? Why? @ -None Did you discuss the management of the patient with other professionals (professionals i.e. DrBryan, PA, [employer], lab, RT, psych nurse, social security specialist, nurse practitioner [place] di[place], teacher, aviation ordnance officer, case packer)? Give summary @ -Spoke with Dr. Rascon. Patient has normal vitals, normal labs and normal im aging. Dr. Rascon will follow the patient in the office for further evaluation of his symptoms Was smoking cessation discussed for >3mins.? @ -No Was critical care preformed (if so, how long)? @ -No Were there social determinants of health that impacted care today? How? (Homelessness, low income, unemployed, alcoholism, drug addiction, transportation, low edu. Level, literacy, decrease access to med. care, assisted, rehab)? @ -No Was there de-escalation of care discussed even if they declined (Discuss DNR or withdrawal of care, Hospice)? DNR status @ -No What co-morbidities impacted this encounter? (DM, HTN, Smoking, COPD, CAD, Cancer, CVA, ARF, Chemo, Hep., AIDS, mental health diagnosis, sleep apnea, morbid obesity)? @ -History of colon cancer in remission Was patient admitted / discharged? Hospital course, mention meds given and route, prescriptions, significant lab abnormalities, going to OR and other pertinent info. @ -Upon arrival patient seen and evaluated in hallway 10. Thorough history and physical exam was performed. IV is established. Patient was administered IV fluids. Laboratory studies are conducted. CT and chest x-ray are performed. Results are discussed with the patient. He cannot provide me with a stool sample. I did call and speak with his primary care in regards to this patient. Dr. Rascon states that he will follow the patient in office for further evaluation of his symptoms. Patient wants to be admitted however I told him that with normal vital signs, normal labs and normal imaging that I do not have hospital criteria. Patient is able to get up and ambulate and function on his own. I do recommend that he follow-up with his primary care doctor for further evaluation of his symptoms. Return for any new or worsening symptoms. Patient agreeable to plan was discharged in stable condition Undiagnosed new problem with uncertain prognosis? @ -No Drug Therapy requiring intensive monitoring for toxicity (Heparin, Nitro, Insulin, Cardizem)? @ -No Were any procedures done? @ -No Diagnosis/symptom? @ -Generalized weakness, acute diarrhea Acute, or Chronic, or Acute on Chronic? @ -Acute Uncomplicated (without systemic symptoms) or Complicated (systemic symptoms)? @ -Complicated Side effects of treatment? @ -No Exacerbation, Progression, or Severe Exacerbation? @ -No Poses a threat to life or bodily function? How? (Chest pain, USA, CA, pneumonia, PE, COPD, DKA, ARF, appy, cholecystitis, CVA, Diverticulitis, Homicidal, Suicidal, threat to staff... and all critical care pts) @ -No - Lab Data Result diagrams: 07/24/24 11:20 07/24/24 11:20 Lab Results 07/24/24 07/24/24 07/24/24 Range/Units 11:20 11:20 11:44 WBC 5.4 (3.8-10.6) k/uL RBC 3.74 L (4.30-5.90) m/uL Hgb 11.3 L (13.0-17.5) gm/dL Hct 37.6 L (39.0-53.0) % MCV 100.6 H (80.0-100.0) fL MCH 30.4 (25.0-35.0) pg MCHC 30.2 L (31.0-37.0) g/dL RDW 14.3 (11.5-15.5) % Plt Count 170 (150-450) k/uL MPV 7.4 Neutrophils % 71 % Lymphocytes % 11 % Monocytes % 10 % Eosinophils % 5 % Basophils % 0 % Neutrophils # 3.8 (1.3-7.7) k/uL Lymphocytes # 0.6 L (1.0-4.8) k/uL Monocytes # 0.5 (0-1.0) k/uL Eosinophils # 0.3 (0-0.7) k/uL Basophils # 0.0 (0-0.2) k/uL Macrocytosis Slight Sodium 139 (137-145) mmol/L Potassium 4.2 (3.5-5.1) mmol/L Chloride 105 (98-107) mmol/L Carbon Dioxide 23 (22-30) mmol/L Anion Gap 11 mmol/L BUN 30 H (9-20) mg/dL Creatinine 1.51 H (0.66-1.25) mg/dL Est GFR (CKD-EPI)AfAm 47 (>60 ml/min/1.73 sqM) Est GFR (CKD-EPI)NonAf 41 (>60 ml/min/1.73 sqM) Glucose 125 H (74-99) mg/dL Plasma Lactic Acid Jese (0.7-2.0) mmol/L Calcium 9.6 (8.4-10.2) mg/dL Total Bilirubin 0.9 (0.2-1.3) mg/dL AST 72 H (17-59) U/L ALT 24 (4-49) U/L Alkaline Phosphatase 91 (38-126) U/L Total Protein 6.7 (6.3-8.2) g/dL Albumin 3.8 (3.5-5.0) g/dL Urine Color Urine Appearance (Clear) Urine pH (5.0-8.0) Ur Specific [place] (1.001-1.035) Urine Protein (Negative) Urine Glucose (UA) (Negative) Urine Ketones (Negative) Urine Blood (Negative) Urine Nitrite (Negative) Urine Bilirubin (Negative) Urine Urobilinogen (<2.0) mg/dL Ur Leukocyte Esterase (Negative) Urine RBC (0-5) /hpf Urine WBC (0-5) /hpf Ur Squamous Epith Cells (0-4) /hpf Urine Mucus (None) /hpf Influenza Type A (PCR) Not Detected (Not Detectd) Influenza Type B (PCR) Not Detected (Not Detectd) RSV (PCR) Not Detected (Not Detectd) SARS-CoV-2 (PCR) Not Detected (Not Detectd) 07/24/24 07/24/24 Range/Units 11:45 15:35 WBC (3.8-10.6) k/uL RBC (4.30-5.90) m/uL Hgb (13.0-17.5) gm/dL Hct (39.0-53.0) % MCV (80.0-100.0) fL MCH (25.0-35.0) pg MCHC (31.0-37.0) g/dL RDW (11.5-15.5) % Plt Count (150-450) k/uL MPV Neutrophils % % Lymphocytes % % Monocytes % % Eosinophils % % Basophils % % Neutrophils # (1.3-7.7) k/uL Lymphocytes # (1.0-4.8) k/uL Monocytes # (0-1.0) k/uL Eosinophils # (0-0.7) k/uL Basophils # (0-0.2) k/uL Macrocytosis Sodium (137-145) mmol/L Potassium (3.5-5.1) mmol/L Chloride (98-107) mmol/L Carbon Dioxide (22-30) mmol/L Anion Gap mmol/L BUN (9-20) mg/dL Creatinine (0.66-1.25) mg/dL Est GFR (CKD-EPI)AfAm (>60 ml/min/1.73 sqM) Est GFR (CKD-EPI)NonAf (>60 ml/min/1.73 sqM) Glucose (74-99) mg/dL Plasma Lactic Acid Jese 1.2 (0.7-2.0) mmol/L Calcium (8.4-10.2) mg/dL Total Bilirubin (0.2-1.3) mg/dL AST (17-59) U/L ALT (4-49) U/L Alkaline Phosphatase (38-126) U/L Total Protein (6.3-8.2) g/dL Albumin (3.5-5.0) g/dL Urine Color Colorless Urine Appearance Clear (Clear) Urine pH 6.0 (5.0-8.0) Ur Specific [place] 1.034 (1.001-1.035) Urine Protein 2+ H (Negative) Urine Glucose (UA) Trace H (Negative) Urine Ketones Negative (Negative) Urine Blood Small H (Negative) Urine Nitrite Negative (Negative) Urine Bilirubin Negative (Negative) Urine Urobilinogen <2.0 (<2.0) mg/dL Ur Leukocyte Esterase Negative (Negative) Urine RBC 1 (0-5) /hpf Urine WBC 2 (0-5) /hpf Ur Squamous Epith Cells 1 (0-4) /hpf Urine Mucus Rare H (None) /hpf Influenza Type A (PCR) (Not Detectd) Influenza Type B (PCR) (Not Detectd) RSV (PCR) (Not Detectd) SARS-CoV-2 (PCR) (Not Detectd) Disposition Clinical Impression: Diarrhea Disposition: HOME SELF-CARE Condition: Stable Instructions (If sedation given, give patient instructions): Acute Diarrhea (ED) Additional Instructions: Please collect a stool sample and take it into your primary care office. Please call them to make an appointment. Dr. Rascon states that he will see you later this week. Return to the emergency department for any new or worsening symptoms Is patient prescribed a controlled substance at d/c from ED?: No Referrals: Tyson Rascon DO [Primary Care Provider] - 1-2 days Time of Disposition: 16:22
[2024-07-24 16:12] LABS: Appearance,Urine Clear (Clear); Bilirubin,Urine Negative (Negative); Blood,Urine Small (Negative); Color,Urine Colorless; Glucose,Urine (UA) Trace (Negative); Ketones,Urine Negative (Negative); Leukocyte Esterase,Urine Negative (Negative); Mucus,Urine Rare /hpf; Nitrite,Urine Negative (Negative); Protein,Urine 2+ (Negative); RBC,Urine 1 /hpf (0-5); Specific Gravity,Urine 1.034 (1.001-1.035); Squamous Epithelial Cell,Urine 1 /hpf (0-4); Urobilinogen,Urine <2.0 mg/dL (<2.0); WBC,Urine 2 /hpf (0-5)
[2024-07-24 16:36] VITALS: BP 174/93; PULSE 83; RESP 16
== END 2024-07-24 16:36 | disposition home or self-care (01) ==
LOC: EC 11:01
DX: R19.7 Diarrhea, unspecified (principal); Z85.038 Personal history of other malignant neoplasm of large intestine
CPT/HCPCS: 36415; 93005; 80053; 83605; 85025; 81001; 87636; 71046; 74177; 99284; 96374; 96361; J2405; Q9967

== ENCOUNTER 2024-08-31 12:01 | Inpatient (IN) | payer MEDICARE, BC ==
--- NOTE | 2024-08-31 13:11 | XR ---
EXAMINATION TYPE: XR chest 2V DATE OF EXAM: 08/31/2024 1:06 PM COMPARISON: Chest radiographs from 07/24/2024. CLINICAL INDICATION: Male, 88 years old with history of Chest Pain; [facility] TECHNIQUE: XR chest 2V Frontal and lateral views of the chest. FINDINGS: Lungs/Pleura: There is no evidence of pleural effusion, focal consolidation, or pneumothorax. Pulmonary vascularity: Pulmonary vascular congestion. Heart/mediastinum: Cardiomediastinal silhouette is enlarged. Atherosclerotic calcifications are seen in the aorta. Two lead cardiac conduction device overlying the left hemithorax with lead tips projec ting over the right ventricle and right atrium. Musculoskeletal: No acute osseous pathology. IMPRESSION: Cardiomegaly, pulmonary vascular congestion and bilateral pleural effusions. Correlate with BNP for c ongestive heart failure. [facility], , 08/31/2024 1:09 PM
--- NOTE | 2024-08-31 13:13 | ED ---
General Adult HPI - General Chief complaint: Recheck/Abnormal Lab/Rx Stated complaint: Irreg BP Time Seen by Provider: 08/31/24 12:24 Source: patient, RN notes reviewed Mode of arrival: wheelchair Limitations: no limitations - History of Present Illness Initial comments: 88-year-old male presents to the emergency department for evaluation of elevated blood pressure and "flulike symptoms " Patient states that he has been dealing with the symptoms for greater than 1 year. He denies any changes in his symptoms today but he had elevated blood pressure readings at home and therefore this prompted his presentation to the emergency department. He notes that he feels weak and dizzy. He states that he has been seen multiple times for the symptoms and states he is told "there is nothing wrong" he states that he saw his meter mechanic yesterday in the office who recommended he have some labs done. He did make a change to his medication but the patient has not started with the change yet. He denies any fever. He admits to chills. - Related Data Home Medications Medication Instructions Recorded Confirmed Fenofibrate Nanocrystallized 145 mg PO DAILY 04/03/15 08/31/24 [Tricor] Atorvastatin [Lipitor] 40 mg PO HS 10/30/18 08/31/24 Losartan Potassium 50 mg PO DAILY 11/15/20 08/31/24 Amiodarone [Cordarone] 100 mg PO DAILY 12/27/20 08/31/24 Ascorbic Acid [Vitamin C] 500 mg PO DAILY 08/31/24 08/31/24 Cyanocobalamin (Vitamin B-12) 5,000 mcg PO DAILY 08/31/24 08/31/24 [Vitamin B-12] Levothyroxine Sodium [Synthroid] 75 mcg PO DAILY 08/31/24 08/31/24 Pantoprazole [Protonix] 40 mg PO W/BRKFST 08/31/24 08/31/24 Repaglinide [Prandin] 0.5 mg PO AC-BID 08/31/24 08/31/24 Sodium Bicarbonate Tab 650 mg PO DAILY 08/31/24 08/31/24 Tamsulosin [Flomax] 0.4 mg PO DAILY 08/31/24 08/31/24 Allergies Allergy/AdvReac Type Severity Reaction Status Date / Time No Known Allergies Allergy Verified 08/31/24 13:46 Review of Systems ROS Statement: Those systems with pertinent positive or pertinent negative responses have been documented in the HPI. ROS Other: All systems not noted in ROS Statement are negative. 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 Absent: scleral icterus, conjunctival injection, periorbital swelling ENT exam: Present: normal exam, mucous membranes moist Respiratory exam: Present: normal lung sounds bilaterally. Absent: respiratory distress, wheezes, rales, rhonchi, stridor Cardiovascular Exam: Present: regular rate, normal rhythm, normal heart sounds. Absent: systolic murmur, diastolic murmur, rubs, gallop, clicks Extremities exam: Present: full ROM, normal capillary refill, pedal edema. Absent: tenderness, joint swelling, calf tenderness Neurological exam: Present: alert, oriented X3 Psychiatric exam: Present: normal affect, normal mood Skin exam: Present: warm, dry, intact, normal color. Absent: rash Course Vital Signs 08/31/24 08/31/24 08/31/24 12:09 13:24 15:30 Temperature 98.2 F Pulse Rate 71 67 79 Respiratory 18 20 17 Rate Blood Pressure 151/83 185/88 222/106 O2 Sat by Pulse 97 94 L 94 L Oximetry 08/31/24 08/31/24 08/31/24 15:53 16:17 16:37 Temperature Pulse Rate 77 81 83 Respiratory 17 20 18 Rate Blood Pressure 203/101 193/94 171/79 O2 Sat by Pulse 94 L 95 95 Oximetry Medical Decision Making - Medical Decision Making Was pt. sent in by a medical professional or institution (MELODY Huitron, SCREEDMAN, urgent care, hospital, or longterm...) When possible be specific @ -No Did you speak to anyone other than the patient for history (EMS, parent, family, police, friend...)? What history was obtained from this source @ -No Did you review nursing and triage notes (agree or disagree)? Why? @ -I reviewed and agree with nursing and triage notes Were old charts reviewed (outside hosp., previous admission, EMS record, old EK G, old radiological studies, urgent care reports/EKG's, longterm records)? Report findings @ -No old charts were reviewed Differential Diagnosis (chest pain, altered mental status, abdominal pain women, abdominal pain men, vaginal bleeding, weakness, fever, dyspnea, syncope, headache, dizziness, GI bleed, back pain, seizure, CVA, palpatations, mental health, musculoskeletal)? @ -Differential Weakness: Hypoglycemia, shock, sepsis, hyponatremia, anemia, infection, DC, ETOH, adverse medicine reaction, overdose, stroke, this is not meant to be an all-inclusive list. EKG interpreted by me (3pts min.). @ -EKG at 1220 shows a paced rhythm with a rate of 73, DC 266, QRS 106, QTQTc [id number] X-rays interpreted by me (1pt min.). @ -Chest x-ray reveals findings suggestive of pulmonary venous congestion with small bilateral pleural effusions CT interpreted by me (1pt min.). @ -None done U/S interpreted by me (1pt. min.). @ -None done What testing was considered but not performed or refused? (CT, X-rays, U/S, labs)? Why? @ -None What meds were considered but not given or refused? Why? @ -None Did you discuss the management of the patient with other professionals (professionals i.e. EMLODY Huitron, SCREEDMAN, lab, RT, psych nurse, social services technician, cellular plastics cutter, teacher, fisheries technical officer, pillowcase turner)? Give summary @ -Management discussed with Dr. Rascon who is accepting of the admission] Was smoking cessation discussed for >3mins.? @ -No Was critical care preformed (if so, how long)? @ -No Were there social determinants of health that impacted care today? How? (Homelessness, low income, unemployed, alcoholism, drug addiction, transportation, low edu. Level, literacy, decrease access to med. care, [facility], rehab)? @ -No Was there de-escalation of care discussed even if they declined (Discuss DNR or withdrawal of care, Hospice)? DNR status @ -No What co-morbidities impacted this encounter? (DM, HTN, Smoking, COPD, CAD, Cancer, CVA, ARF, Chemo, Hep., AIDS, mental health diagnosis, sleep apnea, morbid obesity)? @ -None Was patient admitted / discharged? Hospital course, mention meds given and route, prescriptions, significant lab abnormalities, going to OR and other pertinent info. @ -Admitted for observation. Patient presented emergency department for evaluation of dizziness, weakness. Laboratory studies obtained there is no significant leukocytosis, hemoglobin 10.6; normal coagulation studies; CMP shows BUN of 25, creatinine 1.77 which is typical for the patient. Troponin 0.049, BUN 3900. Troponin elevation likely due to CHF. He was negative for COVID, influenza, RSV. Chest x-ray reveals findings suggestive of pulmonary venous congestion and small pleural effusions. Patient was significantly hypertensive he was administered 10 mg of hydralazine. He was also given 20 mg of Lasix. He will be admitted for observation for CHF exacerbation. He is understanding agreeable with this plan. Case discussed with Dr. Rascon who is accepting of the admission Case discussed with Dr. Lau. Undiagnosed new problem with uncertain prognosis? @ -No Drug Therapy requiring intensive monitoring for toxicity (Heparin, Nitro, Insulin, Cardizem)? @ -No Were any procedures done? @ -No Diagnosis/symptom? @ -CHF exacerbation Acute, or Chronic, or Acute on Chronic? @ -Acute Uncomplicated (without systemic symptoms) or Complicated (systemic symptoms)? @ -Uncomplicated Side effects of treatment? @ -No Exacerbation, Progression, or Severe Exacerbation? @ -No Poses a threat to life or bodily function? How? (Chest pain, USA, DC, pneumonia, PE, COPD, DKA, ARF, appy, cholecystitis, CVA, Diverticulitis, Homicidal, Suicidal, threat to staff... and all critical care pts) @ -No - Lab Data Result diagrams: 08/31/24 12:50 08/31/24 12:50 Lab Results 08/31/24 08/31/24 08/31/24 Range/Units 12:50 12:50 12:50 WBC 5.8 (3.8-10.6) k/uL RBC 3.37 L (4.30-5.90) m/uL Hgb 10.6 L (13.0-17.5) gm/dL Hct 33.1 L (39.0-53.0) % MCV 98.3 (80.0-100.0) fL MCH 31.3 (25.0-35.0) pg MCHC 31.9 (31.0-37.0) g/dL RDW 14.5 (11.5-15.5) % Plt Count 210 (150-450) k/uL MPV 7.3 Neutrophils % 71 % Lymphocytes % 11 % Monocytes % 8 % Eosinophils % 7 % Basophils % 0 % Neutrophils # 4.1 (1.3-7.7) k/uL Lymphocytes # 0.6 L (1.0-4.8) k/uL Monocytes # 0.4 (0-1.0) k/uL Eosinophils # 0.4 (0-0.7) k/uL Basophils # 0.0 (0-0.2) k/uL Hypochromasia Slight PT 11.9 (10.0-12.5) sec INR 1.1 (<1.2) APTT 26.6 (22.0-30.0) sec Sodium 142 (137-145) mmol/L Potassium 3.8 (3.5-5.1) mmol/L Chloride 108 H (98-107) mmol/L Carbon Dioxide 25 (22-30) mmol/L Anion Gap 9 mmol/L BUN 25 H (9-20) mg/dL Creatinine 1.77 H (0.66-1.25) mg/dL Est GFR (CKD-EPI)AfAm 39 (>60 ml/min/1.73 sqM) Est GFR (CKD-EPI)NonAf 34 (>60 ml/min/1.73 sqM) Glucose 111 H (74-99) mg/dL Calcium 8.8 (8.4-10.2) mg/dL Magnesium 1.6 (1.6-2.3) mg/dL Total Bilirubin 0.6 (0.2-1.3) mg/dL AST 24 (17-59) U/L ALT 12 (4-49) U/L Alkaline Phosphatase 108 (38-126) U/L Troponin I (0.000-0.034) ng/mL NT-Pro-B Natriuret Pep 3960 pg/mL Total Protein 6.2 L (6.3-8.2) g/dL Albumin 3.4 L (3.5-5.0) g/dL TSH 5.490 H (0.465-4.680) mIU/L Free T4 1.30 (0.78-2.19) ng/dL Influenza Type A (PCR) (Not Detectd) Influenza Type B (PCR) (Not Detectd) RSV (PCR) (Not Detectd) SARS-CoV-2 (PCR) (Not Detectd) 08/31/24 08/31/24 Range/Units 12:50 12:56 WBC (3.8-10.6) k/uL RBC (4.30-5.90) m/uL Hgb (13.0-17.5) gm/dL Hct (39.0-53.0) % MCV (80.0-100.0) fL MCH (25.0-35.0) pg MCHC (31.0-37.0) g/dL RDW (11.5-15.5) % Plt Count (150-450) k/uL MPV Neutrophils % % Lymphocytes % % Monocytes % % Eosinophils % % Basophils % % Neutrophils # (1.3-7.7) k/uL Lymphocytes # (1.0-4.8) k/uL Monocytes # (0-1.0) k/uL Eosinophils # (0-0.7) k/uL Basophils # (0-0.2) k/uL Hypochromasia PT (10.0-12.5) sec INR (<1.2) APTT (22.0-30.0) sec Sodium (137-145) mmol/L Potassium (3.5-5.1) mmol/L Chloride (98-107) mmol/L Carbon Dioxide (22-30) mmol/L Anion Gap mmol/L BUN (9-20) mg/dL Creatinine (0.66-1.25) mg/dL Est GFR (CKD-EPI)AfAm (>60 ml/min/1.73 sqM) Est GFR (CKD-EPI)NonAf (>60 ml/min/1.73 sqM) Glucose (74-99) mg/dL Calcium (8.4-10.2) mg/dL Magnesium (1.6-2.3) mg/dL Total Bilirubin (0.2-1.3) mg/dL AST (17-59) U/L ALT (4-49) U/L Alkaline Phosphatase (38-126) U/L Troponin I 0.049 H* (0.000-0.034) ng/mL NT-Pro-B Natriuret Pep pg/mL Total Protein (6.3-8.2) g/dL Albumin (3.5-5.0) g/dL TSH (0.465-4.680) mIU/L Free T4 (0.78-2.19) ng/dL Influenza Type A (PCR) Not Detected (Not Detectd) Influenza Type B (PCR) Not Detected (Not Detectd) RSV (PCR) Not Detected (Not Detectd) SARS-CoV-2 (PCR) Not Detected (Not Detectd) Disposition Clinical Impression: CHF exacerbation, Small pleural effusion Disposition: ADMITTED IP TO THIS HOSP Condition: Stable Is patient prescribed a controlled substance at d/c from ED?: No
[2024-08-31 13:28] LABS: Basophils % (A) 0 %; Eosinophils # (A) 0.4 k/uL (0-0.7); Eosinophils % (A) 7 %; HCT 33.1 % (39.0-53.0); HGB 10.6 gm/dL (13.0-17.5); Hypochromasia Slight; Lymphocytes # (A) 0.6 k/uL (1.0-4.8); Lymphocytes % (A) 11 %; MCH 31.3 pg (25.0-35.0); MCHC 31.9 g/dL (31.0-37.0); MCV 98.3 fL (80.0-100.0); Mean Platelet Volume 7.3; Monocytes # (A) 0.4 k/uL (0-1.0); Monocytes % (A) 8 %; Neutrophils # (A) 4.1 k/uL (1.3-7.7); Neutrophils % (A) 71 %; Platelet Count 210 k/uL (150-450); RBC 3.37 m/uL (4.30-5.90); RDW 14.5 % (11.5-15.5); WBC 5.8 k/uL (3.8-10.6)
[2024-08-31 13:39] LABS: ALT 12 U/L (4-49); AST 24 U/L (17-59); African American GFR (CKD) 39 (>60 ml/min/1.73 sqM); Albumin 3.4 g/dL (3.5-5.0); Alkaline Phosphatase 108 U/L (38-126); Anion Gap 9 mmol/L; Blood Urea Nitrogen 25 mg/dL (9-20); Calcium 8.8 mg/dL (8.4-10.2); Carbon Dioxide 25 mmol/L (22-30); Chloride 108 mmol/L (98-107); Glucose 111 mg/dL (74-99); Magnesium 1.6 mg/dL (1.6-2.3); Non-African American GFR(CKD) 34 (>60 ml/min/1.73 sqM); Potassium 3.8 mmol/L (3.5-5.1); Sodium 142 mmol/L (137-145); Total Bilirubin 0.6 mg/dL (0.2-1.3); Total Protein 6.2 g/dL (6.3-8.2)
[2024-08-31 13:45] LABS: INR 1.1 (<1.2); Partial Thromboplastin Time 26.6 sec (22.0-30.0); Prothrombin Time 11.9 sec (10.0-12.5)
[2024-08-31 13:49] LABS: NT-Pro-B-Type Natriuretic Pept 3960 pg/mL
[2024-08-31 14:10] LABS: Influenza A Not Detected (Not Detectd); Influenza B Not Detected (Not Detectd); RSV Not Detected (Not Detectd)
[2024-08-31] MEDS: hydrALAZINE HCL 20 MG/ML 1 ML VIAL IVP STA ×2 (15:35→23:09)
[2024-08-31] MEDS: FUROSEMIDE 10 MG/ML 2 ML VIAL IV ONE (15:36)
[2024-08-31] MEDS ORDERED: MORPHINE SULFATE 2 MG/ML SYRINGE IV PRN (15:39)
[2024-08-31] MEDS ORDERED: NALOXONE 0.4 MG/ML 1 ML VIAL IV PRN (15:39)
[2024-08-31] MEDS ORDERED: ACETAMINOPHEN TAB 325 MG TAB PO PRN (15:39)
[2024-08-31 18:42] LABS: Erythrocyte Sedimentation Rate 41 mm/Hr (0-20)
[2024-09-01] MEDS: PANTOPRAZOLE 40 MG TABLET PO SCH (06:39)
[2024-09-01] MEDS: REPAGLINIDE 1 MG TAB PO SCH (06:41)
[2024-09-01] MEDS: LEVOTHYROXINE 75 MCG TAB PO SCH (06:42)
[2024-09-01] MEDS ORDERED: CYANOCOBALAMIN 5000 MCG PO SCH (09:00)
[2024-09-01] MEDS: AMIODARONE 100 MG TAB PO SCH (10:27)
[2024-09-01] MEDS: TAMSULOSIN 0.4 MG CAP.ER.24H PO SCH (10:27)
[2024-09-01] MEDS: FENOFIBRATE 160 MG TAB PO SCH (10:27)
[2024-09-01] MEDS: SODIUM BICARBONATE TAB 650 MG TAB PO SCH (10:27)
[2024-09-01] MEDS: ASCORBIC ACID 500 MG TAB PO SCH (10:27)
[2024-09-01] MEDS: carvediloL 3.125 MG TAB PO SCH (10:28)
[2024-09-01] MEDS: LOSARTAN 50 MG TAB PO SCH ×2 (10:32→10:47)
[2024-09-01] MEDS ORDERED: DEXTROSE 50% SYRINGE 50 ML IVP PRN ×2 (11:00)
--- NOTE | 2024-09-01 11:28 | P.HPIM ---
History of Present Illness H&P Date: 09/01/24 Chief Complaint: High BPs, weak, dizzy This is a pleasant 88-year-old gentleman past medical history significant of right eye blindness,CAD, history of CABG, ischemic cardiomyopathy ,PPM, A- flutter -no longer on Eliquis-does not recall why ,diabetes mellitus, hypertension, hyperlipidemia, CTA, anxiety, depression and multiple other medical issues, presented to the ER with complaints of high blood pressures companied by weakness and dizziness. Denies syncope. States yesterday he had gone to his hearing impaired teacher, med change recommended but does not recall which medication and the change had not yet been initiated .started on these changes on admission blood pressures ranged from 151/83 to 226/106, currently 165/77. chest x-ray reported cardiomegaly, pulmonary vascular congestion, bilateral pleural effusions. proBNP 3960. Maintaining O2 sats in the mid to low 90s on room air. Afebrile, normal WBC. Hemoglobin 10.6, platelets 210, INR 1.1. Sodium 142, potassium 3.8, bicarb 25, BUN 25, creatinine 1.77, magnesium 1.6. Troponin 0.049, 0.059, 0.064. TSH 5.490, EKG reported paced, nonspecific ST and T wave abnormalities free T4 1.30. Viral studies negative. Received Lasix IV push, hydralazine, morphine in the ER. Cardiology consult in place. Review of Systems ROS Statement: Those systems with pertinent positive or pertinent negative responses have been documented in the HPI. ROS Other: All systems not noted in ROS Statement are negative. 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 Past Anesthesia/Blood Transfusion Reactions: No Reported Reaction Type of Cardiac Device: AICD Device Placement Date:: 11/16 Smoking Status: Never smoker - Past Family History Mother Family Medical History: No Reported History Medications and Allergies Home Medications Medication Instructions Recorded Confirmed Type Fenofibrate Nanocrystallized 145 mg PO DAILY 04/03/15 08/31/24 History [Tricor] Atorvastatin [Lipitor] 40 mg PO HS 10/30/18 08/31/24 History Losartan Potassium 50 mg PO DAILY 11/15/20 08/31/24 History Amiodarone [Cordarone] 100 mg PO DAILY 12/27/20 08/31/24 History Ascorbic Acid [Vitamin C] 500 mg PO DAILY 08/31/24 08/31/24 History Cyanocobalamin (Vitamin B-12) 5,000 mcg PO DAILY 08/31/24 08/31/24 History [Vitamin B-12] Levothyroxine Sodium [Synthroid] 75 mcg PO DAILY 08/31/24 08/31/24 History Pantoprazole [Protonix] 40 mg PO W/BRKFST 08/31/24 08/31/24 History Repaglinide [Prandin] 0.5 mg PO AC-BID 08/31/24 08/31/24 History Sodium Bicarbonate Tab 650 mg PO DAILY 08/31/24 08/31/24 History Tamsulosin [Flomax] 0.4 mg PO DAILY 08/31/24 08/31/24 History Allergies Allergy/AdvReac Type Severity Reaction Status Date / Time No Known Allergies Allergy Verified 08/31/24 13:46 Physical Exam Vitals: Vital Signs Temp Pulse Pulse Resp BP BP Pulse Ox 09/01/24 07:00 97.9 F 68 16 165/77 93 L 09/01/24 02:00 98.2 F 77 18 159/77 96 08/31/24 22:38 97.8 F 84 15 181/80 94 L 08/31/24 21:29 84 18 188/90 95 08/31/24 18:01 79 16 164/83 96 08/31/24 16:37 83 18 171/79 95 08/31/24 16:17 81 20 193/94 95 08/31/24 15:53 77 17 203/101 94 L 08/31/24 15:30 79 17 222/106 94 L 08/31/24 13:24 67 20 185/88 94 L 08/31/24 12:09 98.2 F 71 18 151/83 97 Intake and Output 08/31/24 09/01/24 09/01/24 22:59 06:59 14:59 Output Total 1150 Balance -1150 Output: Urine 1150 Other: Voiding Method Urinal Urinal # Voids 1 2 Weight 99.337 kg VITAL SIGNS: As above GENERAL: Pleasant, alert and oriented x 3, sitting up on stretcher, no acute distress HEENT: Atraumatic ,Conjunctivae normal. MMM. NECK: Supple, no JVD. No thyroid enlargement. No LNs CARDIOVASCULAR: S1, S2 regular.systolic murmur, no gallops, no rubs. RESPIRATION: Unlabored, equal air entry breath sounds diminished in the bases. No rhonchi or crackles. No wheezing, No bronchial breathing. ABDOMEN: Soft, nondistended, nontender. No guarding, no rigidity, no masses appreciated, positive bowel sounds. LEGS: No edema. no swelling. NERVOUS SYSTEM: Cranial N 2-12 grossly normal. Moves all 4 limbs. No focal deficits. Skin: Warm and dry, no rash Results CBC & Chem 7: 08/31/24 12:50 08/31/24 12:50 Labs: Abnormal Lab Results - Last 24 Hours (Table) 08/31/24 08/31/24 08/31/24 Range/Units 12:50 12:50 12:50 RBC 3.37 L (4.30-5.90) m/uL Hgb 10.6 L (13.0-17.5) gm/dL Hct 33.1 L (39.0-53.0) % Lymphocytes # 0.6 L (1.0-4.8) k/uL ESR 41 H (0-20) mm/Hr Chloride 108 H (98-107) mmol/L BUN 25 H (9-20) mg/dL Creatinine 1.77 H (0.66-1.25) mg/dL Glucose 111 H (74-99) mg/dL Troponin I 0.049 H* (0.000-0.034) ng/mL Total Protein 6.2 L (6.3-8.2) g/dL Albumin 3.4 L (3.5-5.0) g/dL TSH 5.490 H (0.465-4.680) mIU/L 08/31/24 08/31/24 Range/Units 16:13 18:37 RBC (4.30-5.90) m/uL Hgb (13.0-17.5) gm/dL Hct (39.0-53.0) % Lymphocytes # (1.0-4.8) k/uL ESR (0-20) mm/Hr Chloride (98-107) mmol/L BUN (9-20) mg/dL Creatinine (0.66-1.25) mg/dL Glucose (74-99) mg/dL Troponin I 0.059 H* 0.064 H* (0.000-0.034) ng/mL Total Protein (6.3-8.2) g/dL Albumin (3.5-5.0) g/dL TSH (0.465-4.680) mIU/L Thrombosis Risk Factor Assmnt - Choose All That Apply Any of the Below Risk Factors Present?: Yes Each Factor Represents 1 point: Obesity (BMI >25), Swollen legs (current) Other Risk Factors: Yes Each Risk Factor Represents 3 Points: Age 75 years or older Other congenital or acquired thrombophilia - If yes, enter type in comment: No Thrombosis Risk Factor Assessment Total Risk Factor Score: 5 Thrombosis Risk Factor Assessment Level: High Risk Assessment and Plan Assessment: -Hypertension, uncontrolled, symptomatic with dizziness, generalized weakness , mildly elevated troponins -similar to prior troponins on 08/21, flat. -Mild to moderate aortic stenosis -Ischemic cardiomyopathy -Status post AICD -History of a flutter, no longer on Eliquis -Chronic kidney disease, stage III secondary to diabetes mellitus, baseline 1.5- 1.7 -CAD with history of CABG -Diabetes mellitus II -Hypothyroidism, subtherapeutic, dose increased -Hypertension -Hyperlipidemia -Hypomagnesemia -DDD -Gait dysfunction uses a cane and sometimes a walker Plan: Continue on current medication regimen, monitoring and symptomatic treatment. Cardiology consult in place. PT/OT. Social work consult regarding patient expresses discontentment/remorse with his current living arrangements.Discussed options of AF. PT/OT. The impression and plan of care has been dictated as directed. : I performed a history and examination of this patient, discussed the same with the dictator. I agree with the dictator's note ,documented as a scribe. Any additional findings or plans will be noted.
--- NOTE | 2024-09-01 11:42 | P.CRDCN ---
History of Present Illness Consult date: 09/01/24 Consult reason: congestive heart failure History of present illness: This is an 88-year-old male patient previously seen by Dr. Ortiz and has swi tched to Dr. Eubanks in [place] with past medical history of coronary artery disease with three-vessel CABG in 1995, PVCs, diabetes mellitus type 2, hypertension, dyslipidemia, ischemic cardiomyopathy with improved EF status post AICD implantation, typical atrial flutter was previously on Eliquis. We have been asked to evaluate the patient for CHF. Patient gives history that he was seen at [facility] and underwent cardiac stent placement about [address] Eubanks. We will attempt to obtain records from Dr. Eubanks's office. Patient states he came into the hospital because his blood pressure was high at 215/110. He states he now feels he has a headache and lightheaded. He denies chest pain. He apparently was seen at Dr. Berumen's office yesterday and was planned to make a change to his medications but he does not recall the name of the medication. Patient states that he no longer takes Eliquis but does not know why or when this was stopped. Patient was started on Eliquis in July 2023 after he was found to have episodes of atrial flutter on AICD interrogation. Blood pressure 165/77, heart rate 68, pulse ox 93% on room air. -EKG: Paced rhythm. -Chest x-ray: Cardiomegaly, pulmonary vascular congestion and bilateral pleural effusions. -Laboratory studies: WBC 5.8, hemoglobin 10.6. BUN 25 creatinine 1.77 which appears to be patient's baseline. Troponin 0.049, 0.059 and 0.064. proBNP 3960. TSH 5.49 with normal free T4 of 1.3. -Home cardiac medications: Amiodarone 100 mg daily, atorvastatin 40 mg at bedtime, fenofibrate 145 mg daily, losartan 50 mg daily. -Cardiovascular surgery three-vessel CABG with PETERSON to LAD, VG to diagonal 1, VG to OM1 with extended vein angioplasty in 1995. -Most recent cardiac catheterization on our records dated 02/16/2002 revealed 100% mid LAD, 100% proximal circumflex, 60% distal RCA, 0% PETERSON to LAD, 0% VG to diagonal 1, 0% VG to OM1 and this was performed by Dr. Bobby. - Echocardiogram performed in the office on 11/03/2023 revealed EF 50%. Small hypokinetic area of the inferior wall from the base to the mid wall. Small hypokinetic area of the anterior septal wall at the base. Grade 1 diastolic dysfunction. Moderate left ventricular hypertrophy. Mild to moderate aortic stenosis. Aortic valve is calcified. Mild mitral regurgitation. -Lexiscan Cardiolite stress test performed in the office on 09/13/2023 revealed a negative stress test by EKG criteria. Probably normal myocardial perfusion and function. Review Of Systems: At the time of my exam: CONSTITUTIONAL: Denies fever or chills. Reports headache. Reports lightheadedness. HEENT: Denies blurred vision, vision changes, or eye pain. Denies hemoptysis CARDIOVASCULAR: Denies chest pain. Denies orthopnea. Denies PND. Denies palpitations RESPIRATORY: Denies shortness of breath. GASTROINTESTINAL: Denies abdominal pain. Denies nausea or vomiting. HEMATOLOGIC: Denies bleeding disorders. GENITOURINARY: Denies any blood in urine. SKIN: Denies puritis. Denies rash. Physical examination: Gen: This is 88-year-old male in no acute distress VS: reviewed HEENT: Head is atraumatic, normocephalic. Pupils equal, round. Sclerae is anicteric. NECK: Supple. No JVD. LUNGS: Clear to auscultation. No wheezes or rhonchi. No intercostal retracti ons. HEART: Regular rate and rhythm. No murmur. ABDOMEN: Soft No tenderness. EXTREMITIES: No pedal edema. No calf tenderness. NEUROLOGICAL: Patient is awake, alert and oriented x3. Assessment: Elevated troponins with flat pattern, do not suspect acute coronary syndrome Uncontrolled hypertension Mild to moderate aortic stenosis Coronary artery disease with three-vessel CABG in 1995 and recent stent at [place] Diabetes mellitus type 2 Hypertension Dyslipidemia Ischemic cardiomyopathy with improved EF Status post AICD implantation Typical atrial flutter diagnosed 07/2023 when AICD interrogation revealed episodes of atrial flutter Plan: Resume patient's home cardiac medications with the following changes Add Coreg 3.125 mg twice daily Increase losartan to 100 mg daily Obtain records from Dr. Eubanks's office Further recommendations to follow based upon clinical course Thank you kindly for this consultation. Nurse practitioner note has been reviewed, I agree with documented findings and plan of care. Patient was seen and examined. 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 Past Anesthesia/Blood Transfusion Reactions: No Reported Reaction Type of Cardiac Device: AICD Device Placement Date:: 11/16 Smoking Status: Never smoker - Past Family History Mother Family Medical History: No Reported History Medications and Allergies Home Medications Medication Instructions Recorded Confirmed Type Fenofibrate Nanocrystallized 145 mg PO DAILY 04/03/15 08/31/24 History [Tricor] Atorvastatin [Lipitor] 40 mg PO HS 10/30/18 08/31/24 History Losartan Potassium 50 mg PO DAILY 11/15/20 08/31/24 History Amiodarone [Cordarone] 100 mg PO DAILY 12/27/20 08/31/24 History Ascorbic Acid [Vitamin C] 500 mg PO DAILY 08/31/24 08/31/24 History Cyanocobalamin (Vitamin B-12) 5,000 mcg PO DAILY 08/31/24 08/31/24 History [Vitamin B-12] Levothyroxine Sodium [Synthroid] 75 mcg PO DAILY 08/31/24 08/31/24 History Pantoprazole [Protonix] 40 mg PO W/BRKFST 08/31/24 08/31/24 History Repaglinide [Prandin] 0.5 mg PO AC-BID 08/31/24 08/31/24 History Sodium Bicarbonate Tab 650 mg PO DAILY 08/31/24 08/31/24 History Tamsulosin [Flomax] 0.4 mg PO DAILY 08/31/24 08/31/24 History Allergies Allergy/AdvReac Type Severity Reaction Status Date / Time No Known Allergies Allergy Verified 08/31/24 13:46 Physical Exam Vitals: Vital Signs Temp Pulse Pulse Resp BP BP Pulse Ox 09/01/24 07:00 97.9 F 68 16 165/77 93 L 09/01/24 02:00 98.2 F 77 18 159/77 96 08/31/24 22:38 97.8 F 84 15 181/80 94 L 08/31/24 21:29 84 18 188/90 95 08/31/24 18:01 79 16 164/83 96 08/31/24 16:37 83 18 171/79 95 08/31/24 16:17 81 20 193/94 95 08/31/24 15:53 77 17 203/101 94 L 08/31/24 15:30 79 17 222/106 94 L 08/31/24 13:24 67 20 185/88 94 L 08/31/24 12:09 98.2 F 71 18 151/83 97 Intake and Output 08/31/24 09/01/24 09/01/24 22:59 06:59 14:59 Output Total 1150 Balance -1150 Output: Urine 1150 Other: Voiding Method Urinal Urinal # Voids 1 2 Weight 99.337 kg Results 08/31/24 12:50 08/31/24 12:50 Cardiac Enzymes 08/31/24 08/31/24 08/31/24 Range/Units 12:50 12:50 16:13 AST 24 (17-59) U/L Troponin I 0.049 H* 0.059 H* (0.000-0.034) ng/mL 08/31/24 Range/Units 18:37 AST (17-59) U/L Troponin I 0.064 H* (0.000-0.034) ng/mL Coagulation 08/31/24 Range/Units 12:50 PT 11.9 (10.0-12.5) sec APTT 26.6 (22.0-30.0) sec CBC 08/31/24 Range/Units 12:50 WBC 5.8 (3.8-10.6) k/uL RBC 3.37 L (4.30-5.90) m/uL Hgb 10.6 L (13.0-17.5) gm/dL Hct 33.1 L (39.0-53.0) % Plt Count 210 (150-450) k/uL Comprehensive Metabolic Panel 08/31/24 Range/Units 12:50 Sodium 142 (137-145) mmol/L Potassium 3.8 (3.5-5.1) mmol/L Chloride 108 H (98-107) mmol/L Carbon Dioxide 25 (22-30) mmol/L BUN 25 H (9-20) mg/dL Creatinine 1.77 H (0.66-1.25) mg/dL Glucose 111 H (74-99) mg/dL Calcium 8.8 (8.4-10.2) mg/dL AST 24 (17-59) U/L ALT 12 (4-49) U/L Alkaline Phosphatase 108 (38-126) U/L Total Protein 6.2 L (6.3-8.2) g/dL Albumin 3.4 L (3.5-5.0) g/dL Current Medications Generic Name Dose Route Start Last Admin Trade Name Freq PRN Reason Stop Dose Admin Acetaminophen 650 mg 08/31/24 15:39 Acetaminophen Tab 325 Mg Tab PO Q6HR PRN Mild Pain or Fever > 100.5 Amiodarone HCl 100 mg 09/01/24 09:00 09/01/24 10:27 Amiodarone 100 Mg Tab PO 100 mg DAILY MICHAEL Administration Ascorbic Acid 500 mg 09/01/24 09:00 09/01/24 10:27 Ascorbic Acid 500 Mg Tab PO 500 mg DAILY MICHAEL Administration Atorvastatin Calcium 40 mg 09/01/24 21:00 Atorvastatin 40 Mg Tab PO HS MICHAEL Carvedilol 3.125 mg 09/01/24 09:45 09/01/24 10:28 Carvedilol 3.125 Mg Tab PO 3.125 mg BID-W/MEALS MICHAEL Administration Dextrose/Water 25 ml 09/01/24 11:00 Dextrose 50% Syringe 50 Ml IVP PER PROTOCOL PRN Hypoglycemia Protocol Dextrose/Water 50 ml 09/01/24 11:00 Dextrose 50% Syringe 50 Ml IVP PER PROTOCOL PRN Hypoglycemia Protocol Fenofibrate 160 mg 09/01/24 09:00 09/01/24 10:27 Fenofibrate 160 Mg Tab PO 160 mg DAILY MICHAEL Administration Insulin Human Lispro 0 unit 09/01/24 12:30 Insulin Lispro (Humalog) 100 Unit/Ml 10 Ml Vl SQ ACHS [facility] Protocol Levothyroxine Sodium 75 mcg 09/01/24 06:00 09/01/24 06:42 Levothyroxine 75 Mcg Tab PO 75 mcg DAILY@0600 MICHAEL Administration Losartan Potassium 100 mg 09/01/24 09:45 09/01/24 10:32 Losartan 50 Mg Tab PO 100 mg DAILY MICHAEL Administration Morphine Sulfate 2 mg 08/31/24 15:39 Morphine Sulfate 2 Mg/Ml Syringe IV Q4HR PRN Severe Pain (Scale 7 to 10) Naloxone HCl 0.2 mg 08/31/24 15:39 Naloxone 0.4 Mg/Ml 1 Ml Vial IV Q2M PRN Opioid Reversal Pantoprazole Sodium 40 mg 09/01/24 07:30 09/01/24 10:27 Pantoprazole 40 Mg Tablet PO 40 mg W/BRKFST MICHAEL Administration Repaglinide 0.5 mg 09/01/24 07:30 09/01/24 06:41 Repaglinide 1 Mg Tab PO 0.5 mg AC-BID MICHAEL Administration Sodium Bicarbonate 650 mg 09/01/24 09:00 09/01/24 10:27 Sodium Bicarbonate Tab 650 Mg Tab PO 650 mg DAILY MICHAEL Administration Tamsulosin HCl 0.4 mg 09/01/24 09:00 09/01/24 10:27 Tamsulosin 0.4 Mg Cap.Er.24h PO 0.4 mg DAILY MICHAEL Administration Intake and Output 08/31/24 09/01/24 09/01/24 22:59 06:59 14:59 Output Total 1150 Balance -1150 Output: Urine 1150 Other: Voiding Method Urinal Urinal # Voids 1 2 Weight 99.337 kg 08/31/24 12:50 08/31/24 12:50
[2024-09-01 12:06] LABS: Glucose,Whole Blood 155 mg/dL (70-110)
[2024-09-01] MEDS: INSULIN LISPRO (HumaLOG) 100 UNIT/ML 10 mL VL SQ SCH (12:08)
[2024-09-01] MEDS: MAGNESIUM SULFATE-D5W PMX 1 GM in DEXTROSE/WATER 1 100ML.BAG IVPB ONE (12:09)
[2024-09-01 17:27] LABS: Glucose,Whole Blood 138 mg/dL (70-110)
[2024-09-01 19:51] LABS: Glucose,Whole Blood 136 mg/dL (70-110)
[2024-09-01] MEDS: ATORVASTATIN 40 MG TAB PO SCH (20:27)
[2024-09-02 06:11] LABS: Glucose,Whole Blood 112 mg/dL (70-110)
[2024-09-02] MEDS: LEVOTHYROXINE 100 MCG TAB PO SCH (06:36)
[2024-09-02 12:25] LABS: Glucose,Whole Blood 77 mg/dL (70-110)
[2024-09-02] MEDS: amLODIPine 5 MG TAB PO SCH (14:50)
[2024-09-02] MEDS ORDERED: HYDROcodone/APAP 5-325MG 1 EACH TAB PO PRN (15:35)
--- NOTE | 2024-09-02 16:09 | P.PN ---
Subjective Progress Note Date: 09/02/24 This is an 88-year-old male patient previously seen by Dr. Ortiz and has switched to Dr. Eubanks in [place] with past medical history of coronary artery disease with three-vessel CABG in 1995, PVCs, diabetes mellitus type 2, hypertension, dyslipidemia, ischemic cardiomyopathy with improved EF status post AICD implantation, typical atrial flutter was previously on Eliquis. We have been asked to evaluate the patient for CHF. Patient gives history that he was seen at [facility] and underwent cardiac stent placement about [address] Eubanks. We will attempt to obtain records from Dr. Eubanks's office. Patient states he came into the hospital because his blood pressure was high at 215/110. He states he now feels he has a headache and lightheaded. He denies chest pain. He apparently was seen at Dr. Berumen's office yesterday and was planned to make a change to his medications but he does not recall the name of the medication. Patient states that he no longer takes Eliquis but does not know why or when this was stopped. Patient was started on Eliquis in July 2023 after he was found to have episodes of atrial flutter on AICD interrogation. Blood pressure 165/77, heart rate 68, pulse ox 93% on room air. -EKG: Paced rhythm. -Chest x-ray: Cardiomegaly, pulmonary vascular congestion and bilateral pleural effusions. -Laboratory studies: WBC 5.8, hemoglobin 10.6. BUN 25 creatinine 1.77 which appears to be patient's baseline. Troponin 0.049, 0.059 and 0.064. proBNP 3960. TSH 5.49 with normal free T4 of 1.3. -Home cardiac medications: Amiodarone 100 mg daily, atorvastatin 40 mg at bedtime, fenofibrate 145 mg daily, losartan 50 mg daily. -Cardiovascular surgery three-vessel CABG with PETERSON to LAD, VG to diagonal 1, VG to OM1 with extended vein angioplasty in 1995. -Most recent cardiac catheterization on our records dated 02/16/2002 revealed 100% mid LAD, 100% proximal circumflex, 60% distal RCA, 0% PETERSON to LAD, 0% VG to diagonal 1, 0% VG to OM1 and this was performed by Dr. Bobby. - Echocardiogram performed in the office on 11/03/2023 revealed EF 50%. Small hypokinetic area of the inferior wall from the base to the mid wall. Small hypokinetic area of the anterior septal wall at the base. Grade 1 diastolic dysfunction. Moderate left ventricular hypertrophy. Mild to moderate aortic stenosis. Aortic valve is calcified. Mild mitral regurgitation. -Lexiscan Cardiolite stress test performed in the office on 09/13/2023 revealed a negative stress test by EKG criteria. Probably normal myocardial perfusion and function. Progress note No new cardiovascular complaints, blood pressure still elevated, mild swelling in bilateral lower extremity improved since admission. He recently underwent balloon valvuloplasty by Dr. Eubanks for mild to mo derate aortic stenosis. He was admitted to [facility] for HFpEF exacerbation during that time and it was thought that balloon valvuloplasty of moderate aortic stenosis would help. BP 159/88, repeat 171/75, heart rate 62 bpm, EKG shows sinus rhythm first-degree AV block, nonspecific ST changes TSH 5.4, free T41.3, NT-proBNP 3900, A1c 5.7, troponin with a flat pattern of 0.05. BUN 25, creatinine 1.7 Physical examination: Gen: This is 88-year-old male in no acute distress VS: reviewed HEENT: Head is atraumatic, normocephalic. Pupils equal, round. Sclerae is anicteric. NECK: Supple. No JVD. LUNGS: Clear to auscultation. No wheezes or rhonchi. No intercostal retractions. HEART: Regular rate and rhythm. No murmur. ABDOMEN: Soft No tenderness. EXTREMITIES: No pedal edema. No calf tenderness. NEUROLOGICAL: Patient is awake, alert and oriented x3. Assessment: Elevated troponins with flat pattern, do not suspect acute coronary syndrome Essential hypertension, poorly controlled Mild HFpEF exacerbation Moderate aortic stenosis status post recent balloon valvuloplasty by Dr. Eubanks. coronary artery disease with three-vessel CABG in 1995 and recent stent at [place] Diabetes mellitus type 2 Hypertension Dyslipidemia Ischemic cardiomyopathy with improved EF Status post AICD implantation Typical atrial flutter diagnosed 07/2023 when AICD interrogation revealed episodes of atrial flutter Plan: I will start him on Eliquis 2.5 mg twice daily, Add amlodipine 5 mg daily Continue Coreg 3.125 mg twice daily, losartan 100 mg daily Discontinue Aldactone because of borderline GFR. Instead add Farxiga 10 mg daily Repeat labs for tomorrow a.m. discontinue sodium bicarb Objective - Vital Signs Vital signs: Vital Signs Temp 97.8 F 09/02/24 14:55 Pulse 59 L 09/02/24 14:55 Resp 18 09/02/24 14:55 BP 171/75 09/02/24 14:55 Pulse Ox 95 09/02/24 14:55 FiO2 Intake & Output 09/01/24 09/02/24 09/02/24 18:59 06:59 18:59 Intake Total 236 Balance 236 Intake: Oral 236 Other: Voiding Method Urinal Urinal # Voids 1 1 3 # Bowel Movements 1 - Labs CBC & Chem 7: 08/31/24 12:50 08/31/24 12:50 Labs: Abnormal Lab Results - Last 24 Hours (Table) 09/01/24 09/01/24 09/02/24 Range/Units 17:26 19:49 06:09 POC Glucose (mg/dL) 138 H 136 H 112 H (70-110) mg/dL
[2024-09-02] MEDS: DAPAGLIFLOZIN PROPANEDIOL 10 MG TABLET PO SCH (16:42)
[2024-09-02 17:25] LABS: Glucose,Whole Blood 108 mg/dL (70-110)
[2024-09-02] MEDS ORDERED: HEPARIN SODIUM,PORCINE 5,000 UNIT/ML 1 ML VIAL SQ SCH (21:00)
[2024-09-02 21:14] LABS: Glucose,Whole Blood 91 mg/dL (70-110)
[2024-09-02] MEDS: APIXABAN 2.5 MG TABLET PO SCH (21:41)
--- NOTE | 2024-09-03 04:20 | PN ---
PROGRESS NOTE SUBJECTIVE: This is an 88-year-old gentleman admitted with CHF with acute exacerbation and also had hypertension. Also, the patient has a mild to moderate aortic stenosis and multiple medical issues. No chest pain. No palpitation. PHYSICAL EXAMINATION: VITAL SIGNS: Pulse is 59, blood pressure 171/75, respirations 18. CHEST: A few scattered rhonchi. ABDOMEN: Soft. NERVOUS SYSTEM: Nonfocal. LABORATORY DATA: Reviewed. ASSESSMENT: 1. Uncontrolled hypertension. 2. [id number] aortic stenosis. 3. Ischemic cardiomyopathy. 4. Multiple medical issues. RECOMMENDATIONS: Recommended to continue with current management, continue with symptomatic treatment. We will monitor the creatinine and closely follow up with Cardiology. Guarded prognosis. The patient is on fenofibrate. Further recommendations to follow. See orders for details. MMODL / IJN: [id number] /
[2024-09-03 05:44] LABS: Glucose,Whole Blood 88 mg/dL (70-110)
[2024-09-03 11:14] LABS: Basophils # (A) 0.04 X 10*3/uL (0.00-0.10); Eosinophils % (A) 9.6 %; HCT 30.5 % (39.6-50.0); HGB 9.6 g/dL (13.0-17.0); Lymphocytes # (A) 0.58 X 10*3/uL (0.90-5.00); Lymphocytes % (A) 13.9 %; MCH 31.5 pg (27.0-32.0); MCHC 31.5 g/dL (32.0-37.0); Mean Platelet Volume 9.8 FL (9.5-12.2); Monocytes # (A) 0.64 X 10*3/uL (0.20-1.00); Monocytes % (A) 15.3 %; NRBC Per 100 WBC 0 X 10*3/uL (0.00-0.01); Neutrophils # (A) 2.51 X 10*3/uL (1.80-7.70); Platelet Count 177 X 10*3/uL (140-440); RBC 3.05 X 10*6/uL (4.40-5.60); RDW 14.4 % (11.5-14.5); WBC 4.18 X 10*3/uL (4.50-10.00)
[2024-09-03 11:23] LABS: BUN/Creat Ratio 15.17 Ratio (12.00-20.00); Blood Urea Nitrogen 27.3 mg/dL (9.0-27.0); Carbon Dioxide 23.9 mmol/L (21.6-31.8); Chloride 117 mmol/L (96-109); Glucose 93 mg/dL (70-110); Magnesium 1.6 mg/dL (1.5-2.4); Potassium 4.1 mmol/L (3.5-5.5); Sodium 153 mmol/L (135-145)
[2024-09-03 11:24] LABS: ALT 10 U/L (10-49); AST 21 U/L (14-35); Albumin 3.2 g/dL (3.8-4.9); Albumin/Globulin Ratio 1.52 Ratio (1.60-3.17); Alkaline Phosphatase 97 U/L (41-126); Calcium 8.4 mg/dL (8.7-10.3); Globulin 2.1 g/dL (1.6-3.3); Total Bilirubin 0.4 mg/dL (0.3-1.2); Total Protein 5.3 g/dL (6.2-8.2)
--- NOTE | 2024-09-03 11:48 | XR ---
EXAMINATION TYPE: XR chest 1V portable DATE OF EXAM: 09/03/2024 11:38 AM COMPARISON: 08/31/2024 CLINICAL INDICATION: Male, 88 years old with history of chf, previous abnormal chest TECHNIQUE: XR chest 1V portable view(s) obtained. FINDINGS: The heart size is normal. The pulmonary vasculature is normal. Previous left pleural effusion has improved with minimal residual at the costophrenic angle. Some mil d left lower lobe atelectasis may be present. Findings are improved from comparison Pacemaker overlies left chest IMPRESSION: 1. Minimal residual left costophrenic angle pleural fluid and mild left lower lobe atelectasis improv ing from comparison [facility], , 09/03/2024 11:46 AM
[2024-09-03 12:34] LABS: Glucose,Whole Blood 67 mg/dL (70-110)
--- NOTE | 2024-09-03 16:54 | P.PN ---
Subjective Progress Note Date: 09/03/24 This is an 88-year-old male patient previously seen by Dr. Ortiz and has switched to Dr. Eubanks in [place] with past medical history of coronary artery disease with three-vessel CABG in 1995, PVCs, diabetes mellitus type 2, hypertension, dyslipidemia, ischemic cardiomyopathy with improved EF status post AICD implantation, typical atrial flutter was previously on Eliquis. We have been asked to evaluate the patient for CHF. Patient gives history that he was seen at [facility] and underwent cardiac stent placement about [address] Eubanks. We will attempt to obtain records from Dr. Eubanks's office. Patient states he came into the hospital because his blood pressure was high at 215/110. He states he now feels he has a headache and lightheaded. He denies chest pain. He apparently was seen at Dr. Berumen's office yesterday and was planned to make a change to his medications but he does not recall the name of the medication. Patient states that he no longer takes Eliquis but does not know why or when this was stopped. Patient was started on Eliquis in July 2023 after he was found to have episodes of atrial flutter on AICD interrogation. Blood pressure 165/77, heart rate 68, pulse ox 93% on room air. -EKG: Paced rhythm. -Chest x-ray: Cardiomegaly, pulmonary vascular congestion and bilateral pleural effusions. -Laboratory studies: WBC 5.8, hemoglobin 10.6. BUN 25 creatinine 1.77 which appears to be patient's baseline. Troponin 0.049, 0.059 and 0.064. proBNP 3960. TSH 5.49 with normal free T4 of 1.3. -Home cardiac medications: Amiodarone 100 mg daily, atorvastatin 40 mg at bedtime, fenofibrate 145 mg daily, losartan 50 mg daily. -Cardiovascular surgery three-vessel CABG with PETERSON to LAD, VG to diagonal 1, VG to OM1 with extended vein angioplasty in 1995. -Most recent cardiac catheterization on our records dated 02/16/2002 revealed 100% mid LAD, 100% proximal circumflex, 60% distal RCA, 0% PETERSON to LAD, 0% VG to diagonal 1, 0% VG to OM1 and this was performed by Dr. Bobby. - Echocardiogram performed in the office on 11/03/2023 revealed EF 50%. Small hypokinetic area of the inferior wall from the base to the mid wall. Small hypokinetic area of the anterior septal wall at the base. Grade 1 diastolic dysfunction. Moderate left ventricular hypertrophy. Mild to moderate aortic stenosis. Aortic valve is calcified. Mild mitral regurgitation. -Lexiscan Cardiolite stress test performed in the office on 09/13/2023 revealed a negative stress test by EKG criteria. Probably normal myocardial perfusion and function. Progress note No new cardiovascular complaints, blood pressure still elevated, mild swelling in bilateral lower extremity improved since admission. He recently underwent balloon valvuloplasty by Dr. Eubanks for mild to mo derate aortic stenosis. He was admitted to [facility] for HFpEF exacerbation during that time and it was thought that balloon valvuloplasty of moderate aortic stenosis would help. BP 159/88, repeat 171/75, heart rate 62 bpm, EKG shows sinus rhythm first-degree AV block, nonspecific ST changes TSH 5.4, free T41.3, NT-proBNP 3900, A1c 5.7, troponin with a flat pattern of 0.05. BUN 25, creatinine 1.7 Progress note 09/03/2024 BP 125/65, heart rate 61 bpm Lower extremity edema has improved Physical examination: Mild crackles audible in lung bourne HEART: Systolic murmur audible in the aortic area with brisk carotid upstrokes ABDOMEN: Soft No tenderness. EXTREMITIES: 1+ pitting edema bilateral extremity NEUROLOGICAL: Patient is awake, alert and oriented x3. Assessment: Elevated troponins with flat pattern, do not suspect acute coronary syndrome Essential hypertension, poorly controlled Mild HFpEF exacerbation Moderate aortic stenosis status post recent balloon valvuloplasty by Dr. Eubanks. coronary artery disease with three-vessel CABG in 1995 and recent stent at [place] Diabetes mellitus type 2 Hypertension Dyslipidemia Ischemic cardiomyopathy with improved EF Status post AICD implantation Typical atrial flutter diagnosed 07/2023 when AICD interrogation revealed epis odes of atrial flutter Plan: I will start him on Eliquis 2.5 mg twice daily, Add amlodipine 5 mg daily Continue Coreg 3.125 mg twice daily, losartan 100 mg daily Discontinue Aldactone because of borderline GFR. Instead add Farxiga 10 mg daily Repeat labs for tomorrow a.m. discontinue sodium bicarb Obtain and review medical records from [facility]. Further recommendations to follow. Objective - Vital Signs Vital signs: Vital Signs Temp 98.3 F 09/03/24 14:30 Pulse 61 09/03/24 14:30 Resp 18 09/03/24 14:30 BP 125/62 09/03/24 14:30 Pulse Ox 97 09/03/24 14:30 FiO2 Intake & Output 09/02/24 09/03/24 09/03/24 18:59 06:59 18:59 Intake Total 236 640 Balance 236 640 Weight 94.8 kg Intake: Oral 236 640 Other: Voiding Method Urinal # Voids 3 2 1 # Bowel Movements 1 - Labs CBC & Chem 7: 09/03/24 06:29 09/03/24 06:29 Labs: Abnormal Lab Results - Last 24 Hours (Table) 09/03/24 09/03/24 09/03/24 Range/Units 06:29 06:29 12:23 WBC 4.18 L (4.50-10.00) X 10*3/uL RBC 3.05 L (4.40-5.60) X 10*6/uL Hgb 9.6 L (13.0-17.0) g/dL Hct 30.5 L (39.6-50.0) % MCV 100.0 H (80.0-97.0) FL MCHC 31.5 L (32.0-37.0) g/dL Lymphocytes # 0.58 L (0.90-5.00) X 10*3/uL Eosinophils # 0.40 H (0.04-0.35) X 10*3/uL Sodium 153 H (135-145) mmol/L Chloride 117 H (96-109) mmol/L Anion Gap 12.10 H (4.00-12.00) mmol/L BUN 27.3 H (9.0-27.0) mg/dL Creatinine 1.8 H (0.6-1.5) mg/dL Est GFR (CKD-EPI) 36 L (>=60) POC Glucose (mg/dL) 67 L (70-110) mg/dL Calcium 8.4 L (8.7-10.3) mg/dL Total Protein 5.3 L (6.2-8.2) g/dL Albumin 3.2 L (3.8-4.9) g/dL Albumin/Globulin Ratio 1.52 L (1.60-3.17) Ratio
[2024-09-03 17:21] LABS: Glucose,Whole Blood 96 mg/dL (70-110)
[2024-09-03] MEDS: carvediloL 6.25 MG TAB PO SCH (17:24)
[2024-09-03 20:44] LABS: Glucose,Whole Blood 119 mg/dL (70-110)
--- NOTE | 2024-09-04 00:57 | PN ---
PROGRESS NOTE DATE OF SERVICE: 09/03/2024 SUBJECTIVE: This is an 88-year-old gentleman admitted with uncontrolled hypertension and other medical issues, has elevated troponin also. The patient has mild CHF also. No chest pain. No palpitation. Chest x-ray done today showed significant improvement. OBJECTIVE: VITAL SIGNS: Pulse is 61, blood pressure 120/64, respirations 18. CHEST: A few scattered rhonchi and crackles. ABDOMEN: Soft. NERVOUS SYSTEM: Nonfocal. LABORATORY DATA: Hemoglobin 9.6. Sodium is 153. ASSESSMENT: 1. Uncontrolled hypertension. 2. Mild to moderate aortic stenosis. 3. Ischemic cardiomyopathy. 4. Hypernatremia. 5. Multiple medical issues. RECOMMENDATIONS: Recommended to continue with current management and continue symptomatic treatment. I would recommend to monitor the lytes closely. Otherwise, closely follow with Cardiology. Guarded prognosis. Further recommendations to follow. The patient is off Lasix at this time. Dr. Rascno will follow tomorrow. MMODL / IJN: [id number] /
[2024-09-04 02:57] VITALS: RESP 15
[2024-09-04 06:26] LABS: Glucose,Whole Blood 113 mg/dL (70-110)
[2024-09-04 07:59] VITALS: BP 151/74; PULSE 56; TEMP 97.4
[2024-09-04 08:28] LABS: Basophils # (A) 0.04 X 10*3/uL (0.00-0.10); Basophils % (A) 0.9 %; Eosinophils # (A) 0.43 X 10*3/uL (0.04-0.35); Eosinophils % (A) 9.7 %; HGB 9.9 g/dL (13.0-17.0); Lymphocytes # (A) 0.68 X 10*3/uL (0.90-5.00); Lymphocytes % (A) 15.3 %; MCH 31.9 pg (27.0-32.0); MCHC 31.9 g/dL (32.0-37.0); Mean Platelet Volume 9.7 FL (9.5-12.2); Monocytes # (A) 0.72 X 10*3/uL (0.20-1.00); Monocytes % (A) 16.2 %; NRBC Per 100 WBC 0 X 10*3/uL (0.00-0.01); Neutrophils # (A) 2.56 X 10*3/uL (1.80-7.70); Neutrophils % (A) 57.5 %; Platelet Count 166 X 10*3/uL (140-440); RDW 14.1 % (11.5-14.5); WBC 4.45 X 10*3/uL (4.50-10.00)
[2024-09-04 08:45] LABS: BUN/Creat Ratio 16.28 Ratio (12.00-20.00); Blood Urea Nitrogen 29.3 mg/dL (9.0-27.0); Calcium 8.6 mg/dL (8.7-10.3); Carbon Dioxide 23.8 mmol/L (21.6-31.8); Chloride 107 mmol/L (96-109); Glucose 107 mg/dL (70-110); Potassium 4.4 mmol/L (3.5-5.5); Sodium 140 mmol/L (135-145)
[2024-09-04] MEDS: carvediloL 6.25 MG TAB PO SCH (09:37)
[2024-09-04] MEDS: FUROSEMIDE 20 MG TAB PO SCH (09:37)
--- NOTE | 2024-09-04 10:55 | P.PN ---
Subjective HISTORY OF PRESENT ILLNESS: This is an 88-year-old male patient previously seen by Dr. Ortiz and has switched to Dr. Eubanks in [place] with past medical history of coronary artery disease with three-vessel CABG in 1995, PVCs, diabetes mellitus type 2, hypertension, dyslipidemia, ischemic cardiomyopathy with improved EF status post AICD implantation, typical atrial flutter was previously on Eliquis. We have been asked to evaluate the patient for CHF. Patient gives history that he was seen at [facility] and underwent cardiac stent placement about [address] Eubanks. We will attempt to obtain records from Dr. Eubanks's office. Patient states he came into the hospital because his blood pressure was high at 215/110. He states he now feels he has a headache and lightheaded. He denies chest pain. He apparently was seen at Dr. Berumen's office yesterday and was planned to make a change to his medications but he does not recall the name of the medication. Patient states that he no longer takes Eliquis but does not know why or when this was stopped. Patient was started on Eliquis in July 2023 after he was found to have episodes of atrial flutter on AICD interrogation. Blood pressure 165/77, heart rate 68, pulse ox 93% on room air. -EKG: Paced rhythm. -Chest x-ray: Cardiomegaly, pulmonary vascular congestion and bilateral pleural effusions. -Laboratory studies: WBC 5.8, hemoglobin 10.6. BUN 25 creatinine 1.77 which appears to be patient's baseline. Troponin 0.049, 0.059 and 0.064. proBNP 3960 . TSH 5.49 with normal free T4 of 1.3. -Home cardiac medications: Amiodarone 100 mg daily, atorvastatin 40 mg at bedtime, fenofibrate 145 mg daily, losartan 50 mg daily. -Cardiovascular surgery three-vessel CABG with PETERSON to LAD, VG to diagonal 1, VG to OM1 with extended vein angioplasty in 1995. -Most recent cardiac catheterization on our records dated 02/16/2002 revealed 100% mid LAD, 100% proximal circumflex, 60% distal RCA, 0% PETERSON to LAD, 0% VG to diagonal 1, 0% VG to OM1 and this was performed by Dr. Bobby. - Echocardiogram performed in the office on 11/03/2023 revealed EF 50%. Small hyp okinetic area of the inferior wall from the base to the mid wall. Small hypokinetic area of the anterior septal wall at the base. Grade 1 diastolic dysfunction. Moderate left ventricular hypertrophy. Mild to moderate aortic stenosis. Aortic valve is calcified. Mild mitral regurgitation. -Lexiscan Cardiolite stress test performed in the office on 09/13/2023 revealed a negative stress test by EKG criteria. Probably normal myocardial perfusion and function. Progress note No new cardiovascular complaints, blood pressure still elevated, mild swelling in bilateral lower extremity improved since admission. He recently underwent balloon valvuloplasty by Dr. Eubanks for mild to moderate aortic stenosis. He was admitted to [facility] for HFpEF exacerbation during that time and it was thought that balloon valvuloplasty of moderate aortic stenosis would help. BP 159/88, repeat 171/75, heart rate 62 bpm, EKG shows sinus rhythm first-degree AV block, nonspecific ST changes TSH 5.4, free T41.3, NT-proBNP 3900, A1c 5.7, troponin with a flat pattern of 0.05. BUN 25, creatinine 1.7 Progress note 09/03/2024 BP 125/65, heart rate 61 bpm Lower extremity edema has improved 09/04/2024 Patient examined this morning at the bedside. Patient currently denies any chest pain or pressure. He denies any shortness of breath. Blood pressure remains on the higher side. PHYSICAL EXAM: VITAL SIGNS: Reviewed. GENERAL: Well-developed in no acute distress. NECK: Supple. No JVD or thyromegaly LUNGS: Respirations even and unlabored. Lungs essentially clear to auscultation bilaterally. HEART: Regular rate and rhythm. S1 and S2 heard. EXTREMITIES: Normal range of motion. No clubbing or cyanosis. Peripheral pulses intact. No lower extremity edema ASSESSMENT: Elevated troponins with flat pattern, ACS ruled out, of unclear clinical significance Essential hypertension, poorly controlled Mild HFpEF exacerbation Moderate aortic stenosis status post recent balloon valvuloplasty by Dr. Eubanks. coronary artery disease with three-vessel CABG in 1995 and recent stent at [place] Diabetes mellitus type 2 Hypertension Dyslipidemia Ischemic cardiomyopathy with improved EF Status post AICD implantation Typical atrial flutter diagnosed 07/2023 when AICD interrogation revealed episode s of atrial flutter History of GI bleed PLAN: Patient was started on Eliquis this hospitalization secondary to atrial fibrillation. However patient has a history of GI bleeding per Dr. Rascon and re commends discontinuation of Eliquis. Agreeable to discontinuing Eliquis Continue additional cardiac medications Increase carvedilol to 12.5 mg twice a day for optimal blood pressure control Add oral lasix 20mg daily Patient is stable from a cardiac perspective Nurse practitioner note has been reviewed by physician. Signing provider agrees with the documented findings, assessment, and plan of care documented by STATISTICAL METHODS TEACHER as a scribe. Objective - Vital Signs Vital signs: Vital Signs Temp 97.4 F L 09/04/24 07:10 Pulse 56 L 09/04/24 07:10 Resp 15 09/04/24 07:10 BP 151/74 09/04/24 07:10 Pulse Ox 92 L 09/04/24 07:10 FiO2 Intake & Output 09/03/24 09/04/24 09/04/24 18:59 06:59 18:59 Intake Total 640 118 Balance 640 118 Weight 94.2 kg Intake: Oral 640 118 Other: Voiding Method Urinal # Voids 5 3 - Labs CBC & Chem 7: 09/04/24 05:10 09/04/24 05:10 Labs: Abnormal Lab Results - Last 24 Hours (Table) 09/03/24 09/03/24 09/03/24 Range/Units 06:29 06:29 12:23 WBC 4.18 L (4.50-10.00) X 10*3/uL RBC 3.05 L (4.40-5.60) X 10*6/uL Hgb 9.6 L (13.0-17.0) g/dL Hct 30.5 L (39.6-50.0) % MCV 100.0 H (80.0-97.0) FL MCHC 31.5 L (32.0-37.0) g/dL Lymphocytes # 0.58 L (0.90-5.00) X 10*3/uL Eosinophils # 0.40 H (0.04-0.35) X 10*3/uL Sodium 153 H (135-145) mmol/L Chloride 117 H (96-109) mmol/L Anion Gap 12.10 H (4.00-12.00) mmol/L BUN 27.3 H (9.0-27.0) mg/dL Creatinine 1.8 H (0.6-1.5) mg/dL Est GFR (CKD-EPI) 36 L (>=60) POC Glucose (mg/dL) 67 L (70-110) mg/dL Calcium 8.4 L (8.7-10.3) mg/dL Total Protein 5.3 L (6.2-8.2) g/dL Albumin 3.2 L (3.8-4.9) g/dL Albumin/Globulin Ratio 1.52 L (1.60-3.17) Ratio 09/03/24 09/04/24 09/04/24 Range/Units 20:43 05:10 05:10 WBC 4.45 L (4.50-10.00) X 10*3/uL RBC 3.10 L (4.40-5.60) X 10*6/uL Hgb 9.9 L (13.0-17.0) g/dL Hct 31.0 L (39.6-50.0) % MCV 100.0 H (80.0-97.0) FL MCHC 31.9 L (32.0-37.0) g/dL Lymphocytes # 0.68 L (0.90-5.00) X 10*3/uL Eosinophils # 0.43 H (0.04-0.35) X 10*3/uL Sodium (135-145) mmol/L Chloride (96-109) mmol/L Anion Gap (4.00-12.00) mmol/L BUN 29.3 H (9.0-27.0) mg/dL Creatinine 1.8 H (0.6-1.5) mg/dL Est GFR (CKD-EPI) 36 L (>=60) POC Glucose (mg/dL) 119 H (70-110) mg/dL Calcium 8.6 L (8.7-10.3) mg/dL Total Protein (6.2-8.2) g/dL Albumin (3.8-4.9) g/dL Albumin/Globulin Ratio (1.60-3.17) Ratio 09/04/24 Range/Units 06:25 WBC (4.50-10.00) X 10*3/uL RBC (4.40-5.60) X 10*6/uL Hgb (13.0-17.0) g/dL Hct (39.6-50.0) % MCV (80.0-97.0) FL MCHC (32.0-37.0) g/dL Lymphocytes # (0.90-5.00) X 10*3/uL Eosinophils # (0.04-0.35) X 10*3/uL Sodium (135-145) mmol/L Chloride (96-109) mmol/L Anion Gap (4.00-12.00) mmol/L BUN (9.0-27.0) mg/dL Creatinine (0.6-1.5) mg/dL Est GFR (CKD-EPI) (>=60) POC Glucose (mg/dL) 113 H (70-110) mg/dL Calcium (8.7-10.3) mg/dL Total Protein (6.2-8.2) g/dL Albumin (3.8-4.9) g/dL Albumin/Globulin Ratio (1.60-3.17) Ratio
--- NOTE | 2024-09-04 12:00 | P.DS ---
Providers Date of admission: 08/31/24 15:40 Expected date of discharge: 09/04/24 Attending physician: Tyson Rascon Consults: 08/31/24 15:39 Consult Physician Routine Consulting Provider: Julian Ortiz Consult Reason/Comments: chf Do you want consulting provider notified?: Yes Primary care physician: Tyson Rascon [facility] Course: Final Diagnosis: -Hypertension, uncontrolled, symptomatic with dizziness, generalized weakness , mildly elevated troponins -similar to prior troponins on 08/21, flat. -Mild to moderate aortic stenosis -Ischemic cardiomyopathy -Status post AICD -History of a flutter, no longer on Eliquis secondary to GI bleed and fall risk. -Chronic kidney disease, stage III secondary to diabetes mellitus, baseline 1.5- 1.7 -CAD with history of CABG -Diabetes mellitus II -Hypothyroidism, subtherapeutic, dose increased -Hypertension -Hyperlipidemia -Hypomagnesemia -DDD -Gait dysfunction uses a cane and sometimes a walker Hospital course: This is a pleasant 88-year-old gentleman past medical history significant of right eye blindness,CAD, history of CABG, ischemic cardiomyopathy ,PPM, A- flutter -no longer on Eliquis-does not recall why ,diabetes mellitus, hypertension, hyperlipidemia, CTA, anxiety, depression and multiple other medical issues, presented to the ER with complaints of high blood pressures companied by weakness and dizziness. Denies syncope. States yesterday he had gone to his marketing underwriter, med change recommended but does not recall which medication and the change had not yet been initiated .started on these changes on admission blood pressures ranged from 151/83 to 226/106, currently 165/77. chest x-ray reported cardiomegaly, pulmonary vascular congestion, bilateral pleural effusions. proBNP 3960. Maintaining O2 sats in the mid to low 90s on room air. Afebrile, normal WBC. Hemoglobin 10.6, platelets 210, INR 1.1. Sodium 142, potassium 3.8, bicarb 25, BUN 25, creatinine 1.77, magnesium 1.6. Troponin 0.049, 0.059, 0.064. TSH 5.490, EKG reported paced, nonspecific ST and T wave abnormalities free T4 1.30. Viral studies negative. Received Lasix IV push, hydralazine, morphine in the ER. Cardiology consult in place. Cardiology consult in place. PT/OT. Social work consult regarding patient expresses discontentment/remorse with his current living arrangements.Discussed options of AFC. PT/OT. Evaluated by cardiology with further med adjustments noted. Denies chest pain, palpitations or shortness of breath. Lower dose Eliquis had been initiated over the weekend. Discussed with patient and cardiology this morning patient's history of GI bleed, fall risk, age, therefore Eliquis will be discontinued. Patient has been cleared for discharge by cardiology. Evaluated by PT recommending subacute rehab. Patient declining subacute rehab. patient will be discharged home today with home care in a stable condition with guarded prognosis. The impression and plan of care has been dictated as directed. : I performed a history and examination of this patient, discussed the same with the dictator. I agree with the dictator's note ,documented as a scribe. Any additional findings or plans will be noted. Patient Condition at Discharge: Stable Plan - Discharge Summary Discharge Rx Participant: No New Discharge Prescriptions: New Amiodarone [Cordarone] 100 mg PO DAILY #30 tab Losartan [Cozaar] 100 mg PO DAILY #60 tab amLODIPine [Norvasc] 5 mg PO DAILY #30 tab carvediloL [Coreg] 12.5 mg PO BID-W/MEALS #60 tab Dapagliflozin Propanediol [Farxiga] 10 mg PO DAILY #30 tab Furosemide [Lasix] 20 mg PO DAILY #30 tab Levothyroxine Sodium [Synthroid] 100 mcg PO DAILY@0630 #30 tab Continue Fenofibrate Nanocrystallized [Tricor] 145 mg PO DAILY Atorvastatin [Lipitor] 40 mg PO HS Repaglinide [Prandin] 0.5 mg PO AC-BID Pantoprazole [Protonix] 40 mg PO W/BRKFST Tamsulosin [Flomax] 0.4 mg PO DAILY Cyanocobalamin (Vitamin B-12) [Vitamin B-12] 5,000 mcg PO DAILY Ascorbic Acid [Vitamin C] 500 mg PO DAILY Discontinued Losartan Potassium 50 mg PO DAILY Amiodarone [Cordarone] 100 mg PO DAILY Sodium Bicarbonate Tab 650 mg PO DAILY Levothyroxine Sodium [Synthroid] 75 mcg PO DAILY Discharge Medication List Fenofibrate Nanocrystallized [Tricor] 145 mg PO DAILY 04/03/15 [History] Atorvastatin [Lipitor] 40 mg PO HS 06/02/19 [History] Ascorbic Acid [Vitamin C] 500 mg PO DAILY 08/31/24 [History] Cyanocobalamin (Vitamin B-12) [Vitamin B-12] 5,000 mcg PO DAILY 08/31/24 [History] Pantoprazole [Protonix] 40 mg PO W/BRKFST 08/31/24 [History] Repaglinide [Prandin] 0.5 mg PO AC-BID 08/31/24 [History] Tamsulosin [Flomax] 0.4 mg PO DAILY 08/31/24 [History] Amiodarone [Cordarone] 100 mg PO DAILY #30 tab 09/04/24 [Rx] Dapagliflozin Propanediol [Farxiga] 10 mg PO DAILY #30 tab 09/04/24 [Rx] Furosemide [Lasix] 20 mg PO DAILY #30 tab 09/04/24 [Rx] Levothyroxine Sodium [Synthroid] 100 mcg PO DAILY@0630 #30 tab 09/04/24 [Rx] Losartan [Cozaar] 100 mg PO DAILY #60 tab 09/04/24 [Rx] amLODIPine [Norvasc] 5 mg PO DAILY #30 tab 09/04/24 [Rx] carvediloL [Coreg] 12.5 mg PO BID-W/MEALS #60 tab 09/04/24 [Rx] Follow up Appointment(s)/Referral(s): [employer], Dr. Eubanks [Other] - 1 Week Tyson Rascon DO [Primary Care Provider] - 3 Days Residential Home,Health [NON-STAFF] - As Needed Patient Instructions/Handouts: Heart Failure (DC) Activity/Diet/Wound Care/Special Instructions: [place], discussed with patient and marketing underwriter Dr. Serrano , history of GI bleed, fall risk; hemoglobin has decreased from patient's baseline of 12.3 down to 9.9 inpatient. Please give patient information on local area on Aging for additional resources. Discharge/Stand Alone Forms: Who Do I Call?, Adult Foster Fdc List, Assisted Living Facilities, Community Resources, Help In The Home Discharge Disposition: HOME WITH HOME HEALTH SERVICES
[2024-09-04 12:14] LABS: Glucose,Whole Blood 126 mg/dL (70-110)
== END 2024-09-04 13:41 | disposition home health service (06) | DRG 947 ==
LOC: EC 12:01 → 6NMEDSUR 15:40 → UNDOADMOB 15:40 → 6NMEDSUR 17:22 → UNDODISOB 09-04 13:41
PROVIDERS: ADMIT Family Medicine; ATTEND Family Medicine
DX: R79.89 Other specified abnormal findings of blood chemistry (principal); I50.33 Acute on chronic diastolic (congestive) heart failure; I13.0 Hypertensive heart and chronic kidney disease with heart failure and stage 1 through stage 4 chronic kidney disease, or unspecified chronic kidney disease; E11.22 Type 2 diabetes mellitus with diabetic chronic kidney disease; N18.30 Chronic kidney disease, stage 3 unspecified; I35.0 Nonrheumatic aortic (valve) stenosis; I50.30 Unspecified diastolic (congestive) heart failure; I48.3 Typical atrial flutter; I44.0 Atrioventricular block, first degree; I25.10 Atherosclerotic heart disease of native coronary artery without angina pectoris; I25.5 Ischemic cardiomyopathy; I49.3 Ventricular premature depolarization; E78.5 Hyperlipidemia, unspecified; H54.62 Unqualified visual loss, left eye, normal vision right eye; E83.42 Hypomagnesemia; Z79.890 Hormone replacement therapy; Z79.899 Other long term (current) drug therapy; Z85.038 Personal history of other malignant neoplasm of large intestine; Z95.1 Presence of aortocoronary bypass graft; Z95.5 Presence of coronary angioplasty implant and graft; Z95.810 Presence of automatic (implantable) cardiac defibrillator; Z87.19 Personal history of other diseases of the digestive system; Z98.42 Cataract extraction status, left eye; Z98.41 Cataract extraction status, right eye
CPT/HCPCS: 36415; 71045; 71046; 80048; 80053; 83036; 83735; 83880; 84439; 84443; 84484; 85025; 85610; 85652; 85730; 87636; 93005; 94760; 96374; 96375; 99285

== ENCOUNTER → 2024-11-30 | Outpatient (CLI) | payer MEDICARE, BC ==
[2024-11-30 07:36] LABS: Basophils # (A) 0.04 10*3/uL (0.00-0.10); Basophils % (A) 0.8 %; Eosinophils # (A) 0.49 10*3/uL (0.04-0.35); Eosinophils % (A) 9.7 %; HCT 35.1 % (39.6-50.0); HGB 11.4 g/dL (13.0-17.0); Lymphocytes # (A) 0.92 10*3/uL (0.90-5.00); Lymphocytes % (A) 18.3 %; MCH 32.0 pg (27.0-32.0); MCHC 32.5 g/dL (32.0-37.0); MCV 98.6 fL (80.0-97.0); Monocytes # (A) 0.61 10*3/uL (0.20-1.00); Monocytes % (A) 12.1 %; Neutrophils # (A) 2.96 10*3/uL (1.80-7.70); Neutrophils % (A) 58.7 %; Platelet Count 141 10*3/uL (140-440); RBC 3.56 10*6/uL (4.40-5.60); RDW 14.3 % (11.5-14.5); WBC 5.04 10*3/uL (4.50-10.00)
[2024-11-30 07:45] LABS: ALT 16 U/L (4-49); AST 26 U/L (17-59); African American GFR (CKD) 22 (>60 ml/min/1.73 sqM); Albumin 4.3 g/dL (3.5-5.0); Albumin/Globulin Ratio 1.4; Alkaline Phosphatase 118 U/L (38-126); Anion Gap 13 mmol/L; Blood Urea Nitrogen 50 mg/dL (9-20); Calcium 9.7 mg/dL (8.4-10.2); Carbon Dioxide 26 mmol/L (22-30); Chloride 107 mmol/L (98-107); Globulin 3.1 g/dL; Glucose 127 mg/dL (74-99); Magnesium 1.8 mg/dL (1.6-2.3); Non-African American GFR(CKD) 19 (>60 ml/min/1.73 sqM); Potassium 4.3 mmol/L (3.5-5.1); Sodium 146 mmol/L (137-145); Total Protein 7.4 g/dL (6.3-8.2)
[2024-11-30 07:46] LABS: INR 1.0 (<1.2); Partial Thromboplastin Time 23.1 sec (22.0-30.0); Prothrombin Time 11.3 sec (10.0-12.5)
[2024-11-30 07:54] LABS: NT-Pro-B-Type Natriuretic Pept 1800 pg/mL
--- NOTE | 2024-11-30 11:28 | CT ---
EXAMINATION TYPE: CT TAVR Planning CTA scan of the Neck, chest, abdomen and pelvis is performed DATE OF EXAM: 11/30/2024 COMPARISON: CLINICAL INDICATION: Male, 89 years old with history of TAVR; CT TAVR PLANNING TECHNIQUE: CTA scan of the Neck, chest, abdomen and pelvis is performed with IV contrast; Helical imaging obtain ed through the chest, abdomen and pelvis during arterial phase dynamic administration of radiographic contrast intravenously. MIP imaging performed on a [employer] work station and submitted for review. CONTRAST: 125ML mL of Isovue 370. CT DLP: 2419.1 mGycm, Automated exposure control for dose reduction was used. CT CTDI: mGy FINDINGS: See report from [employer] regarding preprocedural planning HEART AND PERICARDIUM: Heart is normal in size. There is no pericardial effusion. AV Calcification Severity: ARTERIAL VASCULATURE: The aortic arch and thoracic aorta demonstrate a normal course and caliber. The pulmonary outflow tra ct appears within normal limits for size. The thoracic aorta is normal in course and caliber. There is no evidence of aortic dissection, aneurysm or acute aortic injury. Great arch vessels patent and n ormal in course and caliber. PULMONARY ARTERIAL VASCULATURE: Normal caliber., No evidence for central filling defect. NECK AND THYROID: No significant findings. The carotid bifurcations are patent. CHEST: LUNGS: LARGE AIRWAYS: Central airways are patent. PLEURAL: No pleural effusion or thickening. No pneumothorax. MEDIASTINUM AND ZULMA: No mediastinal or hilar lymphadenopathy or soft tissue mass. SOFT TISSUES/LYMPH NODES: Unremarkable.Normal. MUSCULOSKELETAL: No acute osseous abnormalities ABDOMEN/PELVIS: Please note arterial phase of the imaging limits detailed evaluation of the solid abdominal organs. ABDOMEN LIVER: Unremarkable GALLBLADDER AND BILE DUCTS: Unremarkable. PANCREAS: Unremarkable. SPLEEN: Unremarkable. ADRENAL GLANDS: Unremarkable. KIDNEYS AND URETERS: No evidence of hydronephrosis or renal calculus. The ureters are unremarkable. PELVIS BLADDER: Unremarkable REPRODUCTIVE: Unremarkable. ABDOMEN & PELVIS STOMACH AND BOWEL: No evidence of bowel obstruction. PERITONEUM/RETROPERITONEUM: No evidence of pneumoperitoneum or free fluid. VASCULATURE: No evidence of aortic aneurysm. MUSCULOSKELETAL: No acute osseous abnormalities LYMPH NODES: No gross evidence for lymphadenopathy. SOFT TISSUE/ABDOMINAL WALL: Unremarkable Other Lines/Tubes/Devices/Hardware: None IMPRESSION: 1. Moderate/Severe calcifications of the aortic valve. 2. No acute process. 3. See report from [employer] regarding preprocedural planning [facility], , 11/30/2024 11:26 AM
[2024-11-30 11:58] LABS: Cholesterol 123.00 mg/dL (0.00-200.00); HDL Cholesterol 35.50 mg/dL (40.00-60.00); LDL Cholesterol,Calculated 57.9 mg/dL (0.0-131.0); Triglycerides 148.00 mg/dL (0.00-149.00); VLDL Calculation 29.60 mg/dL (5.00-40.00)
[2024-11-30 13:03] LABS: Hepatitis A Antibody IgM Nonreactive (Nonreactive); Hepatitis B Surface Antigen Nonreactive (Nonreactive); Hepatitis C IgG Antibody Nonreactive (Nonreactive)
--- NOTE | 2024-11-30 15:32 | US ---
EXAMINATION TYPE: US carotid duplex BILAT DATE OF EXAM: 11/30/2024 COMPARISON: NONE CLINICAL INDICATION: Male, 89 years old with history of I35.1 NONRHEUMATIC AORTIC (VALVE) INSUFFICIEN CY; TAVR patient Additional History: I65.- Occlusion/stenosis of specified precerebral artery, specified laterality TECHNIQUE: Grayscale, color Doppler and spectral Doppler evaluation of the bilateral carotid systems and vertebral arteries. Indirect Doppler criteria was utilized. FINDINGS: EXAM MEASUREMENTS: RIGHT: Peak Systolic Velocity (PSV) cm/sec ----- Right CCA: 53.1 ----- Right ICA: 62.7 ----- Right ECA: 69.4 ICA/CCA ratio: 1.2 RIGHT: End Diastole cm/sec ----- Right CCA: 11.3 ----- Right ICA: 12.9 ----- Right ECA: 7.1 LEFT: Peak Systolic Velocity (PSV) cm/sec ----- Left CCA: 51.8 ----- Left ICA: 68.0 ----- Left ECA: 61.0 ICA/CCA ratio: 1.3 LEFT: End Diastole cm/sec ----- Left CCA: 8.8 ----- Left ICA: 20.2 ----- Left ECA: 8.8 VERTEBRALS (direction of flow): Right Vertebral: Antegrade Left Vertebral: Not seen Rhythm: Normal C ENGINEER NOTES: Plaque seen in bulbs Color Doppler imaging shows patency with blood flow throughout the carotid artery. Spectral waveforms are within normal limits. IMPRESSION: 1. Mild plaque in the carotid bifurcations. 2. Based on color and grayscale imaging, there is no significant stenosis. 3. No hemodynamically significant stenosis based on peak systolic velocities and ratios. Criteria for Assigning % of Stenosis / Diameter reduction (Estimation based on the indirect measurements of the internal carotid artery velocities (ICA PSV). 1. Normal (no stenosis)=ICA PSV < 180 cm/s: ratio < 2.0: ICA EDV<40 cm/s. 2. Less than 50% stenosis=ICA PSV < 180 cm/s: ratio < 2.0: ICA EDV<40 cm/s. 3. 50 to 69% stenosis=ICA PSV of 180 to 230 cm/s: ration 2.0 ? 4.0: ICA EDV 40-100 cm/s. PSV 125-180 cm/sec and ICA/CCA PSV Ratio ? 2.0 is also consistent with 50-69% stenosis 4. Greater than 70% stenosis to near occlusion= ICA PSV > 230 cm/s: ratio > 4.0: ICA EDV > 100 cm/s. 5. Near occlusion= ICA PSV velocities may be low or undetectable: variable ratio and ICA EDV. 6. Total occlusion=unable to detect flow. [facility], , 11/30/2024 3:30 PM
== END | disposition home or self-care (01) ==
LOC: LABWHC1 06:49
PROVIDERS: ATTEND Thoracic Surgery (Cardiothoracic Vascular Surgery)
DX: Z01.818 Encounter for other preprocedural examination (principal); I35.1 Nonrheumatic aortic (valve) insufficiency; I35.0 Nonrheumatic aortic (valve) stenosis; E87.8 Other disorders of electrolyte and fluid balance, not elsewhere classified; E07.9 Disorder of thyroid, unspecified; E11.9 Type 2 diabetes mellitus without complications; N28.9 Disorder of kidney and ureter, unspecified; E78.5 Hyperlipidemia, unspecified; R35.0 Frequency of micturition; R58 Hemorrhage, not elsewhere classified; R55 Syncope and collapse; Z79.01 Long term (current) use of anticoagulants; Z79.899 Other long term (current) drug therapy
CPT/HCPCS: 83880; 80061; 80053; 80074; 84443; 83735; 85025; 85610; 85730; 83036; 93880; 71275; 74174; 36415; Q9967